=== PATIENT | female | born 1945 | race Caucasian/White ===

== ENCOUNTER → 2019-06-11 07:57 | Outpatient (CLI) | payer MEDICARE, SELFPAY ==
--- NOTE | ~2019-06-11 | XR_ITS ---
EXAMINATION: XR cervical spine min 6V DATE: 06/11/2019 10:09 INDICATION: Neck pain. TECHNIQUE: 7 views of cervical spine including flexion and extension views were obtained. COMPARISON: None. FINDINGS: There is 4 degrees levocurvature of cervicothoracic spine. The inferior cervical spine is h ypomobile with flexion and extension. Vertebral body heights are normal. There is mildly decreased di sc height at C5-C6 and C6-C7. 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 There is multilevel mild to moderate facet joint osteoarthritis. There is mild central canal stenosi s at C5-C6 and C6-C7. No prevertebral soft tissue swelling. IMPRESSION: 1. Mild cervical spondylosis. Reviewed, dictated and finalized at location A. OMS BROKERAGE AGENT
--- NOTE | ~2019-06-11 | MMUS_ITS ---
EXAMINATION: MM diagnostic maximus BI w stephenie, US breast RT limited HISTORY: Follow-up for probably benign bilateral breast calcifications and new pain in the upper oute r quadrant of the right breast. TECHNIQUE: Craniocaudal, mediolateral, and mediolateral oblique 3-D tomosynthesis images of the breas ts were performed and synthetic 2-D images were generated. Magnification views of the breasts are als o obtained. CAD analysis was submitted and interpreted. High resolution limited right breast ultrasou nd was performed. COMPARISON: 01/27/2019, 01/18/2019, 12/29/2017, 12/27/2016 BREAST PARENCHYMAL COMPOSITION: There are scattered areas of fibroglandular density. FINDINGS: MAMMOGRAPHIC FINDINGS: Right breast: Grouped punctate calcifications in the posterior third of the lower-outer quadrant of t he breast are stable and appear to be round in morphology. There is no associated mass or suspicious interval change. No mammographic correlate is identified for the reported pain in the upper outer heena drant of the right breast. Left breast: There are stable punctate grouped calcifications in the posterior third of the upper out er quadrant of the breast at the 1:00 location. There has been no suspicious interval change. ULTRASOUND: There is no evidence of focal abnormal solid or cystic lesion in the vicinity of the reported pain in the upper outer quadrant of the right breast. IMPRESSION: 1. Stable, probably benign bilateral breast calcifications and no mammographic or sonographic correla te for the patient's reported right breast pain. 2. Recommend 6 month follow-up bilateral diagnostic mammogram for the breast calcifications and recom mend clinical follow-up for the patient's reported right breast pain. BI-RADS category 3, probably benign findings. Reviewed, dictated and finalized at location A. FINISHER IMPRESSION: 1. Stable, probably benign bilateral breast calcifications and no mammographic or sonographic correlate for the patient's reported right breast pain. 2. Recommend 6 month follow-up bilateral diagnostic mammogram for the breast ca lcifications and recommend clinical follow-up for the patient's reported right breast pain. BI-RADS category 3, probably benign findings.
== END ==
PROVIDERS: PCP Internal Medicine; Visit Provider Internal Medicine
DX: N64.4 Mastodynia (principal); M47.892 Other spondylosis, cervical region
CPT/HCPCS: 72052; 76642; 77062; 77066; G0279

== ENCOUNTER 2019-12-02 15:08 | Outpatient (CLI) | payer MEDICARE, SELFPAY ==
--- NOTE | ~2019-12-02 | XR_ITS ---
XR thoracic spine 2V 12/02/2019 15:44 Indication: Mid back pain Procedure: 2 views thoracic spine Comparison: No prior studies for comparison. Findings: Mild thoracic dextroscoliosis. Vertebral body heights are maintained. Pedicles intact. No a cute fracture or traumatic malalignment. No paraspinal soft tissue abnormality. Surrounding osseous s tructures are unremarkable. Impression: 1: Mild thoracic dextroscoliosis. Reviewed, dictated and finalized at location A. Impression: 1: Mild thoracic dextroscoliosis.
--- NOTE | ~2019-12-02 | XR_ITS ---
XR lumbar spine 2-3V 12/02/2019 15:45 Indication: Low back pain Procedure: 3 views lumbar spine Comparison: 10/18/2011 Findings: There is disc narrowing at L3-4, L4-5 and L5-S1. There is mild multilevel facet hypertrophy . No fracture, subluxation or dislocation. No evidence for spondylolisthesis. There is atherosclerosi s of the aorta. Pedicles intact. Sacral foramen are symmetric. Impression: 1: Mild lumbar spondylosis. Reviewed, dictated and finalized at location A. Impression: 1: Mild lumbar spondylosis.
== END 2019-12-02 15:09 | disposition home or self-care (01) ==
PROVIDERS: PCP Internal Medicine; Visit Provider Internal Medicine
DX: M47.896 Other spondylosis, lumbar region (principal)
CPT/HCPCS: 72070; 72100

== ENCOUNTER 2019-12-08 10:06 | Outpatient (CLI) | payer MEDICARE, SELFPAY ==
--- NOTE | ~2019-12-08 | US_ITS ---
EXAMINATION: US carotid duplex BI DATE: 12/08/2019 10:51 INDICATION: Carotid bruit. TECHNIQUE: Grayscale, color Doppler, and pulsed Doppler images of the cervical carotid arteries were obtained. The degree of vessel stenosis is placed in one of the following categories: normal, <50%, 5 0-69%, >=70% but less than near-occlusion, near-occlusion, or total occlusion. Note that percent sten osis relative to normal distal artery lumen diameter is indirectly measured from velocity measurement s as described by Dilip, et al. Radiology 2003; 229:340-346. COMPARISON: None. FINDINGS: RIGHT: The right common carotid artery (CCA) peak systolic velocity (PSV) is 64 cm/s. The right internal car otid artery (ICA) PSV is 72 cm/s. The right ICA end-diastolic velocity (EDV) is 15 cm/s. The right IC A/CCA PSV ratio is 1.1. Grayscale and color Doppler images yield an estimate of <50% diameter reducti on from plaque in the ICA. The external carotid artery (ECA) PSV is 77 cm/s. There is antegrade flow in the right vertebral artery. LEFT: The left CCA PSV is 72 cm/s. The left ICA PSV is 70 cm/s. The left ICA EDV is 16 cm/s. The left ICA/C CA PSV ratio is 1.0. Grayscale and color Doppler images yield an estimate of <50% diameter reduction from plaque in the ICA. The ECA PSV is 100 cm/s. There is antegrade flow in the left vertebral artery . IMPRESSION: 1. <50% stenosis in the right internal carotid artery. 2. <50% stenosis in the left internal carotid artery. Reviewed, dictated and finalized at location A.
== END 2019-12-08 10:07 | disposition home or self-care (01) ==
LOC: ANHIMG 10:07
PROVIDERS: PCP Internal Medicine; Visit Provider Internal Medicine
DX: R01.1 Cardiac murmur, unspecified (principal); R09.89 Other specified symptoms and signs involving the circulatory and respiratory systems; I65.23 Occlusion and stenosis of bilateral carotid arteries
CPT/HCPCS: 93880

== ENCOUNTER → 2020-02-29 13:38 | Outpatient (CLI) | payer MEDICARE, SELFPAY | PROVIDERS: PCP Internal Medicine; Visit Provider Internal Medicine | DX: R92.8 Other abnormal and inconclusive findings on diagnostic imaging of breast (principal) | CPT/HCPCS: 77062; 77066; G0279 ==

== ENCOUNTER → 2020-03-01 13:25 | Outpatient (CLI) | payer MEDICARE, SELFPAY ==
--- NOTE | ~2020-03-01 | US_ITS ---
EXAMINATION: MM diagnostic maximus BI w stephenie, US breast RT limited HISTORY: Six-month follow-up for probably benign bilateral breast calcifications TECHNIQUE: Craniocaudal, mediolateral, and mediolateral oblique 3-D tomosynthesis images of the elizabeth ts were performed and synthetic 2-D images were generated. Magnification views are also obtained. CAD analysis was submitted and interpreted. Limited right breast ultrasound was performed. COMPARISON: 06/11/2019, 01/27/2019, 01/18/2019, 12/22/2016, 12/27/2016 BREAST PARENCHYMAL COMPOSITION: There are scattered areas of fibroglandular density. FINDINGS: MAMMOGRAPHIC FINDINGS: Left breast: There are stable punctate grouped calcifications in the posterior third of the upper outer quadrant of the breast at 1:00 location. No suspicious mass or architectura l distortion are identified. Right breast: Stable grouped punctate calcifications are present in the posterior third of the lower- outer breast which appear to be round in morphology. There is a possible 1.7 cm mass in the middle th ird of the slightly outer central breast 7 cm deep to the nipple on craniocaudal tomosynthesis image 26/56. ULTRASOUND FINDINGS: There is a 1.4 cm cyst with internal septation at the 9:00 location 2 cm from th e nipple in the right breast corresponding to the mammographic finding in question. No suspicious cys tic or solid mass is identified. IMPRESSION: 1. Bilateral, probably benign breast calcifications which have been stable for one year. 2. Given one year of interval stability, recommend 12 month followup bilateral diagnostic mammogram. BI-RADS category 3, probably benign findings. Reviewed, dictated and finalized at location A.
== END ==
PROVIDERS: PCP Internal Medicine; Visit Provider Internal Medicine
DX: R92.8 Other abnormal and inconclusive findings on diagnostic imaging of breast (principal)
CPT/HCPCS: 76642

== ENCOUNTER 2020-03-15 14:34 | Outpatient (CLI) | payer MEDICARE, SELFPAY ==
[2020-03-15 15:09] LABS: Basophils Absolute Auto 0.1 K/mm3 (0.0-0.1); Basophils Percent Auto 0.6 % (0.2-1.2); Eosinophils Absolute Auto 0.1 K/mm3 (0-0.3); Eosinophils Percent Auto 1.4 % (0-4.4); Hematocrit 44.6 % (37.0-47.0); Hemoglobin 14.7 g/dL (12.0-15.0); Immature Granulocyte Absolute 0.03 K/mm3 (0.00-0.031); Immature Granulocyte Percent A 0.3 % (0-0.5); Lymphocytes Absolute Auto 2.01 K/mm3 (0.9-3.2); Lymphocytes Percent Auto 20.5 % (18.3-44.2); Mean Corpuscular Hemoglobin 28.8 pg (26-34); Mean Corpuscular Volume 87.5 fl (80-100); Mean Platelet Volume 10.1 fl (7.4-10.4); Monocytes Absolute Auto 0.9 K/mm3 (0.1-0.6); Monocytes Percent Auto 8.8 % (2.6-8.5); Neutrophils Absolute Auto 6.7 K/mm3 (1.3-6.7); Neutrophils Percent Auto 68.4 % (45.5-73.1); Platelet Count Result 229 k/mm3 (150-375); Red Cell Distribution Width 14.1 % (11.5-14.5); White Blood Count 9.8 K/mm3 (4.5-10.0)
[2020-03-15 15:26] LABS: Alanine Aminotransferase 30 U/L (4-35); Albumin Level 4.4 g/dL (3.5-5.1); Alkaline Phosphatase 82 U/L (38-126); Anion Gap 7 mmol/L (8-16); Aspartate Amino Transferase 27 U/L (14-36); Bilirubin,Total 2.8 mg/dL (0.2-1.3); Blood Urea Nitrogen 17 mg/dL (7-17); Calcium 9.7 mg/dL (8.4-10.2); Carbon Dioxide 30 mmol/L (22-30); Chloride 102 mmol/L (98-107); Estimated Glomerular Filt Rate 40; Glucose 118 mg/dL (65-105); Potassium 4.1 mmol/L (3.4-5.0); Sodium 139 mmol/L (137-145)
[2020-03-15 15:55] LABS: Thyroid Stimulating Hormone < 0.015 uIU/mL (0.465-4.680)
[2020-03-15 16:20] LABS: Free T4 Free Thyroxine 1.73 ng/mL (0.78-2.19)
[2020-03-15 16:43] LABS: Hemoglobin A1C 6.7 % (<5.7)
[2020-03-20 10:55] LABS: Homocysteine 19.1 umol/L (<10.4)
== END 2020-03-15 14:35 | disposition home or self-care (01) ==
PROVIDERS: PCP Internal Medicine; Visit Provider Internal Medicine
DX: I10 Essential (primary) hypertension (principal); Z79.899 Other long term (current) drug therapy; E11.69 Type 2 diabetes mellitus with other specified complication; E78.2 Mixed hyperlipidemia; R79.9 Abnormal finding of blood chemistry, unspecified
CPT/HCPCS: 36415; 80048; 80076; 83036; 83090; 84439; 84443; 85025

== ENCOUNTER 2020-03-15 15:43 | Outpatient (CLI) | payer MEDICARE, SELFPAY ==
--- NOTE | ~2020-03-15 | US_ITS ---
EXAMINATION: US venous doppler [facility] DATE: 03/15/2020 16:16 INDICATION: Left lower limb edema. TECHNIQUE: Grayscale ultrasound images without and with compression and Doppler ultrasound images of the left lower extremity veins were obtained. COMPARISON: None. FINDINGS: The visualized portions of left common femoral vein, profunda (deep) femoral vein, femoral vein, popl iteal vein, peroneal veins, posterior tibial veins, and greater saphenous vein outflow are patent. IMPRESSION: 1. No deep venous thrombosis. Reviewed, dictated and finalized at location B. OR DATA WAREHOUSE ARCHITECT
== END 2020-03-15 15:44 | disposition home or self-care (01) ==
PROVIDERS: PCP Internal Medicine; Visit Provider Internal Medicine
DX: M79.89 Other specified soft tissue disorders (principal); R60.9 Edema, unspecified
CPT/HCPCS: 36415; 80048; 80076; 83036; 83090; 84439; 84443; 85025; 93971

== ENCOUNTER 2020-08-01 13:26 | Outpatient (CLI) | payer MEDICARE, SELFPAY ==
[2020-08-01 14:30] LABS: Hemoglobin A1C 7.1 % (<5.7)
[2020-08-01 14:33] LABS: Alanine Aminotransferase 25 U/L (4-35); Albumin Level 4.5 g/dL (3.5-5.1); Alkaline Phosphatase 90 U/L (38-126); Anion Gap 7 mmol/L (8-16); Aspartate Amino Transferase 23 U/L (14-36); Bilirubin,Total 1.7 mg/dL (0.2-1.3); Blood Urea Nitrogen 23 mg/dL (7-17); Calcium 10.2 mg/dL (8.4-10.2); Carbon Dioxide 30 mmol/L (22-30); Chloride 103 mmol/L (98-107); Cholesterol 182 mg/dL (0-200); Estimated Glomerular Filt Rate 37; Glucose 141 mg/dL (65-105); HDL Direct 74 mg/dL; Potassium 3.8 mmol/L (3.4-5.0); Sodium 140 mmol/L (137-145); Triglycerides 160 mg/dL (<150)
[2020-08-01 14:45] LABS: LDL Cholesterol Direct 67 mg/dL
[2020-08-01 15:04] LABS: Thyroid Stimulating Hormone < 0.015 uIU/mL (0.465-4.680)
[2020-08-01 15:08] LABS: Free T4 Free Thyroxine 1.67 ng/mL (0.78-2.19)
[2020-08-03 09:27] LABS: Homocysteine 13.8 umol/L (<10.4)
[2020-08-04 09:22] LABS: Vitamin D 1,25 (OH)2 Total 12 pg/mL (18-72); Vitamin D2 1,25 (OH)2 <8 pg/mL; Vitamin D3 1,25 (OH)2 12 pg/mL
== END 2020-08-01 13:27 | disposition home or self-care (01) ==
PROVIDERS: PCP Internal Medicine; Visit Provider Internal Medicine
DX: R79.89 Other specified abnormal findings of blood chemistry (principal); E78.2 Mixed hyperlipidemia; Z79.899 Other long term (current) drug therapy; E55.9 Vitamin D deficiency, unspecified; E11.69 Type 2 diabetes mellitus with other specified complication
CPT/HCPCS: 36415; 80053; 80061; 82652; 83036; 83090; 84439; 84443

== ENCOUNTER 2020-08-17 15:40 | Outpatient (CLI) | payer MEDICARE, SELFPAY ==
--- NOTE | ~2020-08-17 | XR_ITS ---
XR chest 2V DATE: 08/17/2020 16:06 INDICATION: Dyspnea. Shortness of breath. History of myocardial infarction and COPD. TECHNIQUE: PA and lateral views COMPARISON: 09/07/2018 PA and lateral chest FINDINGS: Normal heart size. Left coronary artery stent. No hilar or mediastinal enlargement. Mild bilateral apical capping. No pulmonary infiltrate or consolidation, pleural effusion or pulmonary vascular congestion or pneumo thorax. Diffuse osteopenia. Degenerative spurring of the thoracic and lumbar spine. Clips overlie the upper abdomen on lateral view, likely due to cholecystectomy. IMPRESSION: No active cardiopulmonary disease Reviewed, dictated and finalized at location A.
[2020-08-17 16:11] LABS: CRP < 0.5 mg/dL (<1.0)
[2020-08-17 16:44] LABS: Erythrocyte Sedimentation Rate 18 mm/hr (0-20)
== END 2020-08-17 15:41 | disposition home or self-care (01) ==
PROVIDERS: PCP Internal Medicine; Visit Provider Internal Medicine
DX: M79.10 Myalgia, unspecified site (principal); R06.00 Dyspnea, unspecified; Z95.5 Presence of coronary angioplasty implant and graft; M85.88 Other specified disorders of bone density and structure, other site
CPT/HCPCS: 36415; 71046; 85652; 86140

== ENCOUNTER 2020-09-01 08:53 | Outpatient (CLI) | payer MEDICARE, SELFPAY ==
--- NOTE | 2020-09-01 17:56 | WPDPFTINT ---
PFT Procedure Performed PFT Procedure Performed Spirometry with Pre/Post Bronchodilator Plethysmography (Lung Vol) Diffusing Cap (DLCO) Flow Vol Loop PFT Interpretation This is a pulmonary function test with pre and post-bronchodilator spirometry, plethysmography and diffusing capacity. The test was performed and results interpreted in accordance with the 2019 and 2005 ATS/ERS Task Force guidelines respectively using the Global Lung Function Initiative-2012 reference equations. Patient demonstrated good effort and cooperation. Reproducibility criteria were met. The quality of the pre bronchodilator spirometry maneuver was Grade A and post bronchodilator spirometry maneuver was Grade A. Findings: Spirometry: The contour the inspiratory and expiratory flow tracing are normal. The pre bronchodilator FVC is 2.32 L, 77% predicted. The pre bronchodilator FEV1 is 1.70 L, 74% predicted. The FEV1: FVC ratio 73%. The post bronchodilator FVC is 2.25 L, representing a 3% decrease. The post bronchodilator FEV1 is 1.71 L, representing 1% increase. Plethysmography: The total lung capacity is 6.09 L, 110% predicted. The functional residual capacity is 3.88 L, 121% predicted. The residual volume is 3.56 L, 145% predicted. Diffusion capacity: The absolute diffusion capacity is 15.8, 74% predicted. The diffusing capacity corrected for alveolar volume is 3.74, 92% predicted. Impression: The spirometry is normal without evidence of an obstructive abnormality. There is no significant improvement after inhaling a single dose of albuterol. There is an increased residual volume with a normal total lung capacity. This is an abnormal but nonspecific lung volume pattern. The diffusing capacity is normal. There are no prior studies for comparison
== END 2020-09-01 08:54 | disposition home or self-care (01) ==
PROVIDERS: PCP Internal Medicine; Visit Provider Internal Medicine
DX: R06.00 Dyspnea, unspecified (principal)
CPT/HCPCS: 94060; 94726; 94729

== ENCOUNTER 2020-09-12 11:21 | Observation (INO) | payer MEDICARE, SELFPAY ==
[2020-09-12] VITALS (9 sets, daily range): BP systolic 116–131; BP diastolic 58–94; PULSE 51–60; RESP 14–20; TEMP 36.1–36.8; O2SAT 97–100; BMI 34.2
--- NOTE | ~2020-09-12 | NM_ITS ---
EXAMINATION: NM cyrus stress w perfusion DATE: 09/13/2020 13:17 INDICATION: Chest pain. TECHNIQUE: Rest images were obtained following intravenous administration of 9 mCi Tc99m tetrofosmin (Myoview). The patient was infused intravenously with Lexiscan (regadenoson). Then, 28.32 mCi Tc99m t etrofosmin (Myoview) was administered intravenously, and stress images were obtained. Data was recons tructed into short axis and horizontal and vertical long axis SPECT images. Gated SPECT images were a lso obtained. COMPARISON: None. FINDINGS: There is no definite reversible or fixed perfusion abnormality to suggest ischemia or infar ction. There is no segmental wall motion abnormality. Left ventricular ejection fraction measures > 70%. IMPRESSION: 1. No definite ischemia or infarct. 2. Normal left ventricular ejection fraction measuring >70%. Reviewed, dictated and finalized at location B.
--- NOTE | ~2020-09-12 | XR_ITS ---
EXAMINATION: XR chest 2V DATE: 09/12/2020 12:34 INDICATION: Chest pain. TECHNIQUE: Frontal and lateral views of the chest were obtained. COMPARISON: Chest 2 views 08/17/2020 FINDINGS: There is mild scarring at the lung apices. There is mild atelectasis in left lower lung zon e. No pleural effusion or pneumothorax. The heart size is normal. There are surgical clips in the pel vis. IMPRESSION: 1. Mild atelectasis in left lower lung zone. 2. Stable mild scarring at the lung apices. Reviewed, dictated and finalized at location B.
--- NOTE | 2020-09-12 11:35 | ECG_ITS ---
Measurements Intervals [place] Rate: 54 P: 87 CT: 193 QRS: -15 QRSD: 148 T: 87 QT: 431 QTc: 412 Interpretive Statements SINUS BRADYCARDIA LEFT BUNDLE BRANCH BLOCK ABNORMAL ECG Electronically Signed On 09-12-2020 11:58:33 CDT by Alvin Morrow D.O.
[2020-09-12 11:57] LABS: Basophils Absolute Auto 0.1 K/mm3 (0.0-0.1); Basophils Percent Auto 0.3 % (0.2-1.2); Eosinophils Absolute Auto 0.2 K/mm3 (0-0.3); Eosinophils Percent Auto 1.2 % (0-4.4); Hemoglobin 14.2 g/dL (12.0-15.0); Immature Granulocyte Absolute 0.11 K/mm3 (0.00-0.031); Immature Granulocyte Percent A 0.7 % (0-0.5); Lymphocytes Absolute Auto 2.95 K/mm3 (0.9-3.2); Lymphocytes Percent Auto 19.1 % (18.3-44.2); Mean Corpuscular HGB Conc 32.3 g/dl (32-36); Mean Corpuscular Hemoglobin 27.8 pg (26-34); Mean Corpuscular Volume 86.1 fl (80-100); Mean Platelet Volume 9.9 fl (7.4-10.4); Monocytes Absolute Auto 1.1 K/mm3 (0.1-0.6); Monocytes Percent Auto 6.8 % (2.6-8.5); Neutrophils Absolute Auto 11.1 K/mm3 (1.3-6.7); Neutrophils Percent Auto 71.9 % (45.5-73.1); Platelet Count Result 200 k/mm3 (150-375); Red Blood Count 5.11 M/mm3 (4.2-5.4); Red Cell Distribution Width 15.4 % (11.5-14.5); White Blood Count 15.5 K/mm3 (4.5-10.0)
[2020-09-12 12:06] LABS: INR 0.8; Partial Thromboplastin Time 20.6 SECONDS (22.3-36.8); Prothrombin Time 11.7 Seconds (11.1-14.7)
[2020-09-12 12:08] LABS: Anion Gap 6 mmol/L (8-16); Blood Urea Nitrogen 31 mg/dL (7-17); Calcium 9.9 mg/dL (8.4-10.2); Carbon Dioxide 25 mmol/L (22-30); Chloride 105 mmol/L (98-107); Estimated CRCL calculation 44 ml/min; Estimated Glomerular Filt Rate 44; Glucose 199 mg/dL (65-105); Potassium 3.7 mmol/L (3.4-5.0); Sodium 136 mmol/L (137-145)
[2020-09-12 12:20] LABS: Troponin I < 0.012 ng/mL (0.000-0.034)
--- NOTE | 2020-09-12 13:08 | ED.GENADULT ---
HPI - General Adult General Chief complaint: Chest Pain Stated complaint: Irregularities in an ekg Time Seen by Provider: 09/12/20 12:59 Source: patient History of Present Illness HPI narrative: Patient is a 74 y/o female complaining of mid sternal chest pain that occurred 3 days ago. She describes her pain as burning and rates it as 9/10. There was no pain radiation. She states that she drank some water and it eventually went away after about 30 minutes. She has no chest pain at this time. There was no SOB, cough, nausea or vomiting. She states that she had MD over 10 years ago and had stent placed at that time. However, she has been doing well since then. She was seen in her PCP's office today and was sent here for abnormal EKG. Related Data Home Medications Medication Instructions Recorded Confirmed aspirin 81 mg tablet,delayed 81 mg PO DAILY 03/09/19 09/12/20 release empagliflozin 10 mg tablet 10 mg PO DAILY 03/09/19 09/12/20 lorazepam 1 mg tablet 1 mg PO TID PRN 03/09/19 09/12/20 ondansetron 4 mg disintegrating 4 mg PO Q8H 03/09/19 09/12/20 tablet ipratropium 0.5 mg-albuterol 3 mg 3 ml INHALATION QID PRN 03/29/19 09/12/20 (2.5 mg base)/3 mL nebulization soln cholecalciferol (vitamin D3) 25 25 mcg PO DAILY 11/04/19 09/12/20 mcg (1,000 unit) capsule calcium 500 mg tablet mg PO 08/17/20 09/12/20 omega-3 fatty acids 1,000 mg 1,000 mg PO BID 08/17/20 09/12/20 capsule Allergies Allergy/AdvReac Type Severity Reaction Status Date / Time Iodinated Contrast Media Allergy Mild Unknown Verified 09/12/20 10:58 codeine Allergy Unknown Unknown Verified 09/12/20 10:58 iodine Allergy Unknown Unknown Verified 09/12/20 10:58 morphine Allergy Unknown Unknown Verified 09/12/20 10:58 tramadol Allergy Unknown Unknown Verified 09/12/20 10:58 Review of Systems Constitutional: Constitutional: Denies chills, Denies fever(s), Denies headache(s) and Denies weakness Eyes: Eyes: Denies blurry vision ENT: Denies headache(s) and Denies neck pain Cardiovascular: Cardiovascular: Reports chest pain and Denies dyspnea Respiratory: Respiratory: Denies cough and Denies dyspnea Gastrointestinal: Gastrointestinal: Denies abdominal pain, Denies diarrhea, Denies nausea and Denies vomiting Genitourinary: Genitourinary: Denies hematuria and Denies dysuria Musculoskeletal: Musculoskeletal: Denies back pain and Denies neck pain Neurologic: Denies headache(s) and Denies weakness [facility] Past Medical History Medical History Abnormal EKG Abnormal finding of blood chemistry Abnormal mammogram Abnormal screening mammogram Anxiety with depression ASHD (arteriosclerotic heart disease) BMI 32.0-32.9,adult BMI 34.0-34.9,adult BMI 35.0-35.9,adult Bruit Cardiac enzymes elevated Cervicalgia Chronic pain CKD (chronic kidney disease) Dizziness DJD (degenerative joint disease) DM type 2 (diabetes mellitus, type 2) PERKINS (dyspnea on exertion) Elevated homocysteine Encounter for routine adult health examination without abnormal findings Familial tremor FHx: breast cancer Follow up Hearing loss Homans sign present Hx of colonic polyps Hyperlipidemia LBBB (left bundle branch block) Left leg swelling Mastodynia of right breast Medicare annual wellness visit, subsequent Mid back pain Myalgia On longterm drug therapy Orthostatic hypotension Peripheral edema Right flank pain Vitamin D deficiency (~03/09/19) Family History Family History Grandparent Diabetes mellitus Mother Family history of malignant neoplasm of ovary Father Cerebrovascular accident Patient's father is Other FHx: breast cancer Family history of arthritis Family history of cardiovascular disease Hypertension Malignant neoplasm of prostate Social History Social History Smoking status: Former smok
--- NOTE | 2020-09-12 13:15 | PC.NURSE ---
s/p went to PCP office this am for mid-sternal non-radiating CP since this weekend, had abn EKG and sent here for eval. I had heartburn before my first heart attack, 11 years ago . Pt is on high dose steroids for one month they think I have an inflammatory disease and is on a taper now. Pt currently denies pain, SB on monitor, non-labored respirations, 100% RA
[2020-09-12 13:40] LABS: D Dimer 0.27 ug/mL (<0.48)
[2020-09-12 16:12] LABS: Troponin I < 0.012 ng/mL (0.000-0.034)
--- NOTE | 2020-09-12 17:21 | ADMGEN ---
This patient, Allyson Tello, was admitted to IMU Room 214-01. Patient/family oriented to hospital policies and general routines including ID bracelet, bed and alarms, visiting hours, pain management, procedures, bathroom and other care routines, personal items, smoking policy, room service/diet, and visiting hours. Information on how to activate the Rapid Response Team has been discussed. Patient/Family are encouraged to report perceived risks to care and to ask questions if they do not understand what they are told or what they should do.
[2020-09-12 18:09] LABS: Troponin I < 0.012 ng/mL (0.000-0.034)
--- NOTE | 2020-09-12 19:10 | EST_ITS ---
Patient Info Name: Allyson Tello Age: 74 years : 1945 Gender: Female Ht: 67 in Wt: 219 lbs BSA: 2.20 m2 HR: 56 bpm Exam Date: 09/13/2020 11:43 AM Exam Location: [facility] Stress Patient Status: Inpatient Admit Date: 09/12/2020 Staff Ordering Physician: Bushra Landon NP Attending Provider: Maninder Padron MD Exercise Technologist: Rhett Stokes RDCS, RT Exercise Physician: Paulo Veloz MD Exam Type: CA stress cyrus w NM Study Info A regadenoson stress test was performed. Summary 1. No abnormal ST-T wave changes with lexiscan. 2. Please correlate with nuclear medicine images, reported separately. Protocol: Lexiscan Stress ECG Details Stage: REST Duration (min): 15 min : 49 sec HR (bpm): 52 SBP (mmHg): 121 DBP (mmHg): 48 Stage: REST Duration (min): 16 min : 29 sec HR (bpm): 49 SBP (mmHg): 121 DBP (mmHg): 48 Stage: STAGE 1 Duration (min): 1 min : 0 sec HR (bpm): 52 SBP (mmHg): 103 DBP (mmHg): 57 Stage: RECOVERY Duration (min): 1 min : 0 sec HR (bpm): 73 SBP (mmHg): 103 DBP (mmHg): 57 Stage: RECOVERY Duration (min): 2 min : 0 sec HR (bpm): 72 SBP (mmHg): 103 DBP (mmHg): 57 Stage: RECOVERY Duration (min): 3 min : 0 sec HR (bpm): 69 SBP (mmHg): 131 DBP (mmHg): 57 Stage: RECOVERY Duration (min): 3 min : 18 sec HR (bpm): 68 SBP (mmHg): 131 DBP (mmHg): 57 Rest HR: 49 bpm Peak HR: 75 bpm Rest Sys BP: 121 mmHg Peak Sys BP: 131 mmHg Max Pred HR: 145 bpm % Max Pred HR: 52 % Target HR: 123 bpm Max RPP: 9,825 bpm*mmHg Target HR Summary: Hemodynamic response to exercise was normal BP Response: Normal blood pressure response Termination Reason: Completed protocol Cardiac Symptoms: None Total Time: 1 min : 0 sec Rest Boles BP: 48 mmHg Peak Boles BP: 57 mmHg Total Dose: 0.4 mg Resting ECG Normal sinus rhythm. Left bundle branch block. Stress ECG Non-diagnostic ECG due to left bundle branch block. Arrhythmias None. Report Signatures
--- NOTE | 2020-09-12 19:15 | PM.IMHP ---
H&P: HPI History of Present Illness Date/Time: 09/12/20 19:15Lorin is a 74-year-old female patient has a past medical history of coronary artery disease. The patient stated that she had 2 cardiac stents several years ago. The patient has been having some chronic pain issues and recently was placed on prednisone. The patient stated that she has been more active than normal. Midsternal burning discomfort on and off for approximately 3 days. She said as burning and she was rating her pain INR 10. Did radiate down her arm. She drink some water and eventually went away after 30 minutes. She had no chest pain today. She does have any shortness of breath no nausea vomiting. She states that she does have acid reflux and she had a heart attack over 10 years ago. She said this pain is different than acid reflux and feels more like the pain she had when she had a heart attack. Her cardiac enzymes were negative x3. It was reported that the patient went to her primary care doctor's office and had an EKG. It was reported that the patient's EKG was left bundle branch. I saw the EKG read which was read as sinus bradycardia with left bundle branch block. From 08/15/2017 was read as sinus rhythm left bundle-branch block. This bundle-branch block is not new. Cardiology has been consulted. The patient does take a baby aspirin daily. Patient was given a full-dose aspirin in the emergency room. Patient is being admitted for observation on date of service of 09/12/2020. Chief Complaint: Chest pain Review of Systems Review of Systems: All systems reviewed & are unremarkable except as noted in HPI and below Constitutional: Constitutional: Reports as per HPI and Reports no additional constitutional complaints Eyes: Eyes: Reports as per HPI and Reports no additional eye complaints ENT: Reports system reviewed and no additional complaints, except as documented and Reports Normal hearing present Cardiovascular: Cardiovascular: Reports no additional cardiovascular complaints Respiratory: Respiratory: Reports no additional respiratory complaints and Reports no additional respiratory complaints Gastrointestinal: Gastrointestinal: Reports as per HPI and Reports no additional gastrointestinal complaints Musculoskeletal: Musculoskeletal: Reports no additional musculoskeletal complaints Integumentary/Breasts: Skin/Breast: Reports system reviewed and no additional complaints, except as docu and Reports as per HPI Neurologic: Reports system reviewed and no additional complaints, except as documented, Reports as per HPI and Reports Normal hearing present Psychiatric: Psychiatric: Reports no additional psychiatric complaints and Reports as per HPI Endocrine: Endocrine: Reports no additional endocrine complaints Hematologic/Lymphatic: Hematologic/Lymphatic: Reports no additional hematologic/lymphatic complaints Allergic/Immunologic: Allergic/Immunologic: Reports no additional allergic/immunologic complaints [facility] Past Medical History Medical History (Updated 09/12/20 @ 19:50 by Bushra Landon NP) Abnormal EKG Abnormal finding of blood chemistry Abnormal mammogram Abnormal screening mammogram Anxiety with depression ASHD (arteriosclerotic heart disease) BMI 32.0-32.9,adult BMI 34.0-34.9,adult BMI 35.0-35.9,adult Bruit Cardiac enzymes elevated Cervicalgia Chronic pain CKD (chronic kidney disease) Dizziness DJD (degenerative joint disease) DM type 2 (diabetes mellitus, type 2) PERKINS (dyspnea on exertion) Elevated homocysteine Encounter for routine adult health examination without abnormal findings Familial tremor FHx: breast cancer Follow up Hearing loss Homans sign present Hx of colonic polyps Hyperlipidemia Hypothyroidism LBBB (left bundle branch block) Left leg swelling Mastodynia of right breast Medicare annual wellness visit, subsequent Mid back pain Myalgia 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
[2020-09-12] MEDS: ROSUVASTATIN 10 MG TABLET 40 MG PO (20:56)
[2020-09-12] MEDS: METOPROLOL SUCCINATE EXT REL 50 MG TABCR PO (20:57)
[2020-09-12] MEDS: GABAPENTIN 100 MG CAPSULE PO (20:57)
[2020-09-12] MEDS: OMEGA 3 POLYUNSAT FATTY ACIDS 1 GM CAP PO (20:57)
[2020-09-12] MEDS: MONTELUKAST SODIUM 10 MG TABLET PO (20:57)
[2020-09-12] MEDS: PANTOPRAZOLE 40 MG TABLET PO (20:58)
[2020-09-12] MEDS: ENOXAPARIN 40 MG/0.4 ML SYRINGE SUB-Q (20:59)
[2020-09-13] VITALS (10 sets, daily range): BP systolic 115–134; BP diastolic 41–69; PULSE 49–68; RESP 16–18; TEMP 36.3–36.6; O2SAT 96–99
--- NOTE | 2020-09-13 | ECHO_ITS ---
Patient Info Name: Allyson Tello Age: 74 years : 1945 Gender: Female Ht: 67 in Wt: 218 lbs BSA: 2.20 m2 HR: 52 bpm BP: 127 / 41 mmHg Heart Rhythm: Sinus Rhythm Technical Quality: Good Exam Date: 09/13/2020 7:49 AM Exam Location: [facility] Patient Status: Inpatient Admit Date: 09/12/2020 Staff Ordering Physician: Bushra Landon NP Brine Tank Separator Operator: Rhett Stokes RDCS, RT Attending Provider: Maninder Padron MD Referring Physician: Dipesh TEIXEIRA; Exam Type: CA echo doppler color flow Study Info Indications R07.89 - Other chest pain Complete two-dimensional, color flow and Doppler transthoracic echocardiogram is performed. Strain analysis performed. Summary 1. Complete two-dimensional, color flow and Doppler transthoracic echocardiogram is performed. 2. Strain analysis performed. 3. Left ventricular chamber dimension is normal. 4. Left ventricular systolic function is normal, estimated at 60-65%. 5. There is mildly increased left ventricular wall thickness. 6. Left ventricular septal wall motion is abnormal with septal motion related to bundle branch block. 7. The left ventricular diastolic function is grade I diastolic dysfunction. 8. Global longitudinal strain is abnormal at -15 %. 9. Left atrial chamber dimension is mildly enlarged. 10. There is mild aortic valve regurgitation. 11. There is mild mitral valve regurgitation. 12. The mitral valve has thickened leaflets. 13. There is mild tricuspid valve regurgitation. Left Ventricle Left ventricular chamber dimension is normal. Left ventricular systolic function is normal, estimated at 60-65%. There is mildly increased left ventricular wall thickness. Left ventricular septal wall motion is abnormal with septal motion related to bundle branch block. The left ventricular diastolic function is grade I diastolic dysfunction. Global longitudinal strain is abnormal at -15 %. Right Ventricle Right ventricular chamber dimension is normal. Right ventricular systolic function is normal. Left Atria Left atrial chamber dimension is mildly enlarged. Right Atria Right atrial chamber dimension is normal. Atrial Septum Intact interatrial septum visualized by color flow imaging. Aortic Valve The aortic valve is trileaflet. There is mild aortic valve sclerosis. There is no aortic valve stenosis. There is mild aortic valve regurgitation. Pulmonic Valve The pulmonic valve is normal. There is no pulmonic valve stenosis. There is trace pulmonic regurgitation. No pulmonic valve vegetation visualized. Mitral Valve The mitral valve has thickened leaflets. There is no mitral valve stenosis. There is mild mitral valve regurgitation. Tricuspid Valve The tricuspid valve leaflets are normal. There is no significant tricuspid valve stenosis. There is mild tricuspid valve regurgitation. No pulmonary hypertension, estimated pulmonary arterial systolic pressure is 32 mmHg. Pericardium/Pleural The pericardium appears normal. There is trivial pericardial effusion. Inferior Vena Cava Normal inferior vena cava with >50% collapse upon inspiration consistent with normal right atrial pressure, 5 mmHg. Aorta The aortic root size at the sinus of Valsalva is normal. The prox ascending aorta size is normal. Left Ventricular Outflow Tract Name Value Normal ---
[2020-09-13 05:06] LABS: Basophils Absolute Auto 0.1 K/mm3 (0.0-0.1); Basophils Percent Auto 0.6 % (0.2-1.2); Eosinophils Absolute Auto 0.3 K/mm3 (0-0.3); Eosinophils Percent Auto 3.3 % (0-4.4); Hematocrit 43.4 % (37.0-47.0); Hemoglobin 14.1 g/dL (12.0-15.0); Immature Granulocyte Absolute 0.08 K/mm3 (0.00-0.031); Immature Granulocyte Percent A 0.8 % (0-0.5); Lymphocytes Absolute Auto 2.81 K/mm3 (0.9-3.2); Lymphocytes Percent Auto 28.7 % (18.3-44.2); Mean Corpuscular HGB Conc 32.5 g/dl (32-36); Mean Corpuscular Hemoglobin 27.9 pg (26-34); Mean Corpuscular Volume 85.9 fl (80-100); Mean Platelet Volume 9.4 fl (7.4-10.4); Monocytes Absolute Auto 0.7 K/mm3 (0.1-0.6); Monocytes Percent Auto 7.5 % (2.6-8.5); Neutrophils Absolute Auto 5.8 K/mm3 (1.3-6.7); Neutrophils Percent Auto 59.1 % (45.5-73.1); Platelet Count Result 156 k/mm3 (150-375); Red Blood Count 5.05 M/mm3 (4.2-5.4); Red Cell Distribution Width 15.6 % (11.5-14.5); White Blood Count 9.8 K/mm3 (4.5-10.0)
[2020-09-13 05:20] LABS: Alanine Aminotransferase 25 U/L (4-35); Albumin Level 3.5 g/dL (3.5-5.1); Alkaline Phosphatase 85 U/L (38-126); Anion Gap 2 mmol/L (8-16); Aspartate Amino Transferase 20 U/L (14-36); Bilirubin,Total 1.8 mg/dL (0.2-1.3); Blood Urea Nitrogen 26 mg/dL (7-17); Calcium 9.5 mg/dL (8.4-10.2); Carbon Dioxide 25 mmol/L (22-30); Chloride 111 mmol/L (98-107); Estimated CRCL calculation 43 ml/min; Estimated Glomerular Filt Rate 44; Glucose 112 mg/dL (65-105); Lipase 54 U/L (23-300); Magnesium 1.9 mg/dL (1.6-2.3); Potassium 3.9 mmol/L (3.4-5.0); Sodium 138 mmol/L (137-145)
[2020-09-13 05:24] LABS: Lactic Acid Reflex 0.9 mmol/L (0.7-2.1)
[2020-09-13] MEDS: LEVOTHYROXINE SODIUM 125 MCG TABLET PO (06:15)
[2020-09-13] MEDS: ONDANSETRON HCL ODT 4 MG TABLET PO (06:15)
[2020-09-13 06:29] LABS: Thyroid Stimulating Hormone Reflex 0.174 uIU/mL (0.465-4.68)
[2020-09-13] MEDS: ACETAMINOPHEN 325 MG TABLET 650 MG PO ×2 (06:57→13:00)
[2020-09-13 07:32] LABS: Glucose Point of Care 208 (65-105)
[2020-09-13 08:20] LABS: Free T4 Free Thyroxine Reflex 1.66 ng/dL (0.78-2.19)
[2020-09-13 09:14] LABS: Total Triiodothyronine (T3) 0.74 NG/ML (0.97-1.69)
--- NOTE | 2020-09-13 10:19 | PM.CNCAR ---
Assessment and Plan Assessment and plan (1) LBBB (left bundle branch block): Code(s): I44.7 - Left bundle-branch block, unspecified Status: Acute Assessment and Plan: Known since 2018 (2) Burning chest pain: Code(s): R07.89 - Other chest pain Status: Acute Assessment and Plan: Concerning for her anginal equivalent. She states that it feels similar to the symptoms she had prior to her myocardial infarction and at the time of her PR. (3) CKD (chronic kidney disease): Qualifiers: Chronic kidney disease stage: stage 1 Qualified Code(s): N18.1 - Chronic kidney disease, stage 1 Code(s): N18.9 - Chronic kidney disease, unspecified Status: Acute Assessment and Plan: Stable (4) CAD (coronary artery disease): Code(s): I25.10 - Atherosclerotic heart disease of [place] coronary artery without angina pectoris Status: Acute Assessment and Plan: Previous 2 stents. One to the LAD and 1 to the diagonal branch. No recent stress test. Continue aspirin, metoprolol, statin, ARB. Prescription for p.r.n. nitroglycerin will be provided. Offered ischemic workup including either a Lexiscan stress test versus a cardiac catheterization. She was is pursue a Lexiscan stress test 1st. 2D echocardiogram with Dopplers also ordered. Further recommendation depending on the results of these tests. (5) Hypertension associated with diabetes: Code(s): E11.59 - Type 2 diabetes mellitus with other circulatory complications; I15.2 - Hypertension secondary to endocrine disorders Status: Acute Assessment and Plan: At goal (6) Hyperlipidemia associated with type 2 diabetes mellitus: Code(s): E11.69 - Type 2 diabetes mellitus with other specified complication; E78.5 - Hyperlipidemia, unspecified Status: Acute Assessment and Plan: On statin History of Present Illness History of Present Illness Consult date/time: 09/13/20 10:19 Requesting physician: Vanessa Sweeney MD Consult reason: chest pain Reason For Visit: Chest pain Narrative: Date of service 09/13/2020 History: Patient is a 74-year-old female who has a history of myocardial infarction dating back to 2009. She had a stent to the diagonal branch as well as the LAD. She follows with Dr. Mackey as an outpatient. She has not had a stress test in several years she states. She has had 2 episodes of burning in her chest. Both started whenever she was lying down. First episode occurred about 5 days ago which lasted about 20-30 minutes. There is no associated nausea, diaphoresis or shortness of breath. She said happened drank some water her symptoms gradually went away. She had another episode 3 days ago which was similar to the 1st but not as severe. Her symptoms are reminiscent of her symptoms that she had prior to and at the time of her myocardial infarction. She does not normally have ?heartburn?. She came to the hospital after being seen by Dr. Powell. EKG in his office showed left bundle-branch block. This is thought to be new but in fact she does have a known history of left bundle branch block at least dating back to 2018. she has ruled out for myocardial infarction at this point. She currently is pain free and otherwise has denied any exertional chest discomfort, unusual shortness of breath. She has some dizziness upon standing. No palpitations, edema or syncope Review of Systems Review of Systems: All systems reviewed & are unremarkable except as noted in HPI and below Constitutional: Constitutional: Denies weakness Eyes: Eyes: Denies blurry vision ENT: Reports Normal hearing present Cardiovascular: Cardiovascular: Reports chest pain Respiratory: Respiratory: Reports dyspnea Gastrointestinal: Gastrointestinal: Denies abdominal pain and Reports heartburn Genitourinary: Genitourinary: Denies hematuria Musculoskeletal: Musculoskeletal: Denies back pain and Main
[2020-09-13] MEDS: MECLIZINE HCL 12.5 MG TABLET PO (13:02)
[2020-09-13] MEDS: predniSONE 20 MG TABLET PO (14:08)
[2020-09-13] MEDS: CHOLECALCIFEROL 1,000 UNITS TABLET 3000 UNITS PO (14:09)
[2020-09-13] MEDS: ASPIRIN 81 MG ENTERIC TABLET PO (14:10)
[2020-09-13] MEDS: hydroCHLOROthiazide 12.5 MG CAPSULE PO (14:10)
[2020-09-13] MEDS: CALCIUM CARBONATE (OSCAL) 500 MG TABLET PO (14:11)
[2020-09-13] MEDS: PANTOPRAZOLE 40 MG TABLET PO (14:11)
[2020-09-13] MEDS: OMEGA 3 POLYUNSAT FATTY ACIDS 1 GM CAP PO (14:12)
[2020-09-13] MEDS: ESCITALOPRAM OXALATE 10 MG TABLET PO (14:13)
[2020-09-13] MEDS: GABAPENTIN 100 MG CAPSULE PO (14:13)
[2020-09-13] MEDS: buPROPion HCL XL (24 HR) 150 MG TABCR 300 MG PO (14:14)
[2020-09-13] MEDS: LOSARTAN POTASSIUM 50 MG TABLET PO (14:14)
--- NOTE | 2020-09-13 16:24 | PM.DS ---
DS: Admitting Diagnosis Admitting Diagnosis Admitting Diagnosis: Chest pain DS: Discharge Diagnosis Discharge Diagnosis (1) Chest pain: Qualifiers: Chest pain type: unspecified Qualified Code(s): R07.9 - Chest pain, unspecified Code(s): R07.9 - Chest pain, unspecified Status: Acute (2) LBBB (left bundle branch block): Code(s): I44.7 - Left bundle-branch block, unspecified Status: Acute (3) CKD (chronic kidney disease): Qualifiers: Chronic kidney disease stage: stage 1 Qualified Code(s): N18.1 - Chronic kidney disease, stage 1 Code(s): N18.9 - Chronic kidney disease, unspecified Status: Acute (4) Hypothyroidism: Code(s): E03.9 - Hypothyroidism, unspecified Status: Chronic (5) Anxiety with depression: Code(s): F41.8 - Other specified anxiety disorders Status: Acute (6) Hyperlipidemia: Qualifiers: Hyperlipidemia type: mixed hyperlipidemia Qualified Code(s): E78.2 - Mixed hyperlipidemia Code(s): E78.5 - Hyperlipidemia, unspecified Status: Acute (7) DM type 2 (diabetes mellitus, type 2): Qualifiers: Diabetes mellitus complication status: with other specified complication Diabetes mellitus roasterman insulin use: without fdc use Qualified Code(s): E11.69 - Type 2 diabetes mellitus with other specified complication Code(s): E11.9 - Type 2 diabetes mellitus without complications Status: Chronic DS: Summary Hospital Course Reason for hospitalization: 74yo female with hx of DM and CAD here for complaints of chest pain. Please see H&P for details. Hospital Course: 74-year-old female with history of diabetes and CAD who presents with complaints of burning chest pain that occurred 3 days prior to admission. Pain occurred at rest. Pain was substernal without radiation. Occurred when she was laying down. Pain was similar to pain she had 10 years ago when she had her MT. She was seen by her primary care provider and was sent to the ED for evaluation. In the ED, patient was hemodynam[place] [id number] otherwise CBC was unremarkable. Repeat white count normalized. D-dimer was normal. BUN 31 and CR 1.2 which is at her baseline. Troponin negative x3. EKG showing Left BBB which is chronic. CXR showed no acute findings. She was admitted to IMU. Echo showing EF 60-65% Grade I diastolic dysfunction. Lexiscan stress test showed no abnormal ST-T wave changes with lexiscan and no definite ischemia or infarct; LVEF measuring >70%. Patient did well. No recurrent chest pain. She was able to be discharged home 09/13/2020. Status at Discharge Cognitive/behavioral status at discharge: Stable Time Spent with Patient Time attestation: Total time spent providing and/or coordinating discharge services: 38 minutes Time spent: Greater than 30 minutes Exam Narrative: Exam Narrative: AF 97.9 115/62 57 18 99% ra Gen - NARD Chest - CTA bilaterally, nml RR CV - RRR S1/S2 Abd - Soft, NT/ND, Positive BS Ext - No pedal edema Psych - Nml mood and affect Skin - Warm and dry DS: Data Data Completed and Pending Labs on day of discharge: Labs from last 24 hours 09/13/20 09/13/20 09/13/20 04:57 04:57 04:57 WBC RBC Hgb Hct MCV MCH MCHC RDW Plt Count MPV Immature Gran % (Auto) Neut % (Auto) Lymph % (Auto) [place] % (Auto) Eos % (Auto) Baso % (Auto) Lymph # (Auto) [place] # (Auto) Eos # (Auto) Baso # (Auto) Abs Immat Gran (auto) Absolute Neuts (auto) Absolute Nucleated RBC Nucleated RBC % Sodium Potassium Chloride Carbon Dioxide Anion Gap BUN Creatinine Estim Creat Clear Calc Estimated GFR Glucose POC Capillary Glucose Hemoglobin A1c Lactic Acid Calcium Magnesium Total Bilirubin AST ALT Alkaline Phosphatase Trop
[2020-09-13 17:00] LABS: Glucose Point of Care 183 (65-105)
== END 2020-09-13 17:07 | disposition home or self-care (01) ==
LOC: ANHED 13:29 → ANHIMU 15:51
PROVIDERS: Emergency Medicine; Nurse Practitioner; Admitting Provider Internal Medicine; Emergency Provider Emergency Medicine; PCP Internal Medicine; Visit Provider Internal Medicine
DX: R07.9 Chest pain, unspecified (principal); I25.10 Atherosclerotic heart disease of native coronary artery without angina pectoris; I12.9 Hypertensive chronic kidney disease with stage 1 through stage 4 chronic kidney disease, or unspecified chronic kidney disease; I25.2 Old myocardial infarction; K21.9 Gastro-esophageal reflux disease without esophagitis; I44.7 Left bundle-branch block, unspecified; E11.22 Type 2 diabetes mellitus with diabetic chronic kidney disease; E78.2 Mixed hyperlipidemia; E03.9 Hypothyroidism, unspecified; F41.8 Other specified anxiety disorders; N18.1 Chronic kidney disease, stage 1; Z95.5 Presence of coronary angioplasty implant and graft; Z87.891 Personal history of nicotine dependence; Z79.84 Long term (current) use of oral hypoglycemic drugs
CPT/HCPCS: 36415; 71046; 78452; 80048; 80053; 82948; 83036; 83605; 83690; 83735; 84439; 84443; 84480; 84484; 85025; 85380; 85610; 85730; 93005; 93017; 93306; 96372; 99285; A9270; A9502; G0378; J1650; J7512

== ENCOUNTER 2020-09-25 11:48 | Outpatient (CLI) | payer MEDICARE, SELFPAY ==
[2020-09-25 12:25] LABS: Basophils Absolute Auto 0.1 K/mm3 (0.0-0.1); Basophils Percent Auto 0.5 % (0.2-1.2); Eosinophils Absolute Auto 0.1 K/mm3 (0-0.3); Eosinophils Percent Auto 0.6 % (0-4.4); Hematocrit 44.8 % (37.0-47.0); Hemoglobin 14.6 g/dL (12.0-15.0); Immature Granulocyte Absolute 0.18 K/mm3 (0.00-0.031); Immature Granulocyte Percent A 1.2 % (0-0.5); Lymphocytes Absolute Auto 3.42 K/mm3 (0.9-3.2); Lymphocytes Percent Auto 22.5 % (18.3-44.2); Mean Corpuscular HGB Conc 32.6 g/dl (32-36); Mean Corpuscular Hemoglobin 28.3 pg (26-34); Mean Platelet Volume 9.6 fl (7.4-10.4); Monocytes Percent Auto 6.8 % (2.6-8.5); Neutrophils Absolute Auto 10.4 K/mm3 (1.3-6.7); Neutrophils Percent Auto 68.4 % (45.5-73.1); Platelet Count Result 256 k/mm3 (150-375); Red Blood Count 5.15 M/mm3 (4.2-5.4); Red Cell Distribution Width 15.9 % (11.5-14.5); White Blood Count 15.2 K/mm3 (4.5-10.0)
[2020-09-25 12:44] LABS: Anion Gap 6 mmol/L (8-16); Blood Urea Nitrogen 25 mg/dL (7-17); CRP < 0.5 mg/dL (<1.0); Calcium 9.8 mg/dL (8.4-10.2); Carbon Dioxide 26 mmol/L (22-30); Chloride 104 mmol/L (98-107); Estimated Glomerular Filt Rate 40; Glucose 186 mg/dL (65-105); Potassium 3.9 mmol/L (3.4-5.0); Sodium 136 mmol/L (137-145)
[2020-09-25 12:47] LABS: Erythrocyte Sedimentation Rate 11 mm/hr (0-20)
== END 2020-09-25 11:49 | disposition home or self-care (01) ==
LOC: ANHLAB 11:58
PROVIDERS: PCP Internal Medicine; Visit Provider Internal Medicine
DX: Z79.899 Other long term (current) drug therapy (principal); M79.10 Myalgia, unspecified site
CPT/HCPCS: 36415; 80048; 85025; 85652; 86140

== ENCOUNTER 2020-10-25 08:13 | Observation (INO) | payer MEDICARE, SELFPAY ==
[2020-10-25] VITALS (33 sets, daily range): BP systolic 115–180; BP diastolic 52–86; PULSE 62–93; RESP 15–29; TEMP 36.7–37.8; O2SAT 86–99; BMI 34.0
--- NOTE | ~2020-10-25 | CT_ITS ---
EXAMINATION: CT abdomen pelvis wo con DATE: 10/25/2020 10:21 INDICATION: Abdomen pain. Diverticulitis. Nausea and vomiting for 5 days. TECHNIQUE: Computed tomography (CT) of the abdomen and pelvis was performed without intravenous contr ast. The dose-length product was 1222.29 mGy-cm. Automated exposure control and iterative reconstruct ion technique were employed. COMPARISON: CT dated 03/29/2019. FINDINGS: Lung bases are unremarkable. Heart size normal. No significant pleural or pericardial effus ion. Small hiatal hernia. The liver, spleen, pancreas, adrenal glands and kidneys are unremarkable. No significant vascular abn ormality. No lymphadenopathy. There is colonic diverticulosis without evidence for diverticulitis. No rmal appendix. No free air or free fluid. Small fat-containing umbilical hernia. Uterus is surgically absent. There is a urachal remnant of the bladder. There is a small amount of gas in the urachal rem nant. Consider cystitis in the appropriate clinical setting. Mild lumbar spondylosis. No free air or free fluid. IMPRESSION: 1. Punctate gas collection in the bladder which may relate to recent instrumentation, although cystit is should be considered in the appropriate clinical setting. Reviewed, dictated and finalized at location B. IMPRESSION: 1. Punctate gas collection in the bladder which may relate to recent instrument ation, although cystitis should be considered in the appropriate clinical setti ng.
--- NOTE | ~2020-10-25 | XR_ITS ---
XR chest 1V portable 10/25/2020 10:43 Indication: Fever Procedure: AP portable chest Comparison: Comparison to multiple prior studies sequentially, with oldest reviewed study dated 12/2017. Findings: There is chronic biapical pleural thickening. Heart size upper normal for technique. No foc al air space disease, pulmonary edema, pleural effusion or suspected pneumothorax. There are degenera tive changes of the shoulders. Impression: 1: No acute cardiopulmonary disease. Reviewed, dictated and finalized at location B. Impression: 1: No acute cardiopulmonary disease.
[2020-10-25 08:38] LABS: Basophils Absolute Auto 0.1 K/mm3 (0.0-0.1); Basophils Percent Auto 0.5 % (0.2-1.2); Eosinophils Absolute Auto 0.1 K/mm3 (0-0.3); Eosinophils Percent Auto 0.6 % (0-4.4); Hematocrit 44.5 % (37.0-47.0); Hemoglobin 14.2 g/dL (12.0-15.0); Immature Granulocyte Absolute 0.19 K/mm3 (0.00-0.031); Lymphocytes Absolute Auto 1.39 K/mm3 (0.9-3.2); Lymphocytes Percent Auto 7.2 % (18.3-44.2); Mean Corpuscular HGB Conc 31.9 g/dl (32-36); Mean Corpuscular Hemoglobin 28.5 pg (26-34); Mean Corpuscular Volume 89.2 fl (80-100); Monocytes Absolute Auto 0.9 K/mm3 (0.1-0.6); Monocytes Percent Auto 4.8 % (2.6-8.5); Neutrophils Absolute Auto 16.5 K/mm3 (1.3-6.7); Neutrophils Percent Auto 85.9 % (45.5-73.1); Platelet Count Result 242 k/mm3 (150-375); Red Blood Count 4.99 M/mm3 (4.2-5.4); Red Cell Distribution Width 15.9 % (11.5-14.5); White Blood Count 19.2 K/mm3 (4.5-10.0)
[2020-10-25 08:48] LABS: Alanine Aminotransferase 63 U/L (4-35); Alkaline Phosphatase 113 U/L (38-126); Anion Gap 5 mmol/L (8-16); Aspartate Amino Transferase 88 U/L (14-36); Bilirubin,Total 2.3 mg/dL (0.2-1.3); Blood Urea Nitrogen 19 mg/dL (7-17); Calcium 10.3 mg/dL (8.4-10.2); Carbon Dioxide 31 mmol/L (22-30); Chloride 102 mmol/L (98-107); Estimated CRCL calculation 47 ml/min; Estimated Glomerular Filt Rate 48; Glucose 181 mg/dL (65-105); Lipase 72 U/L (23-300); Potassium 3.8 mmol/L (3.4-5.0); Sodium 138 mmol/L (137-145)
[2020-10-25] MEDS: SODIUM CHLORIDE 0.9% IV 1,000 ML 999 ML IV CONT (09:46)
[2020-10-25] MEDS: FAMOTIDINE 20 MG/2 ML VIAL IV PUSH ×2 (09:46→21:15)
[2020-10-25] MEDS: PROCHLORPERAZINE EDISYLATE 10 MG/2 ML VIAL IV PUSH (09:46)
[2020-10-25 10:01] LABS: Alveolar/Arterial O2 Gradient 45.1 mmHg; Carboxyhemoglobin 1.5 % THb (0-2.0); Fractional Inspired Oxygen 21 %; HCO3 ABG 27.7 mEq/l (22.0-26.0); Oxygen Content ABG 17.2 %vol (16.0-22.0); Oxygen Saturation ABG 88.6 % (95.0-100.0); Oxyhemoglobin 87.3 % THb (90.0-100.0); PCO2 ABG 42.7 mmHg (35.0-45.0); PO2 ABG 53.5 mmHg (80.0-100.0); PO2 FiO2 Ratio Arterial Blood 2.55 %; Reduced Hemoglobin 11.2 %THb (0-5.0)
[2020-10-25 10:02] LABS: Modified Allen's Test Pass; Site Drawn RIGHT RADIAL
[2020-10-25 10:03] LABS: Device ROOM AIR
[2020-10-25 10:05] LABS: Lactic Acid Reflex 1.5 mmol/L (0.7-2.1)
--- NOTE | 2020-10-25 10:06 | ECG_ITS ---
Measurements Intervals [place] Rate: 69 P: 104 MO: 184 QRS: 3 QRSD: 160 T: 73 QT: 440 QTc: 473 Interpretive Statements SINUS RHYTHM LEFT BUNDLE BRANCH BLOCK BASELINE ARTIFACT- I, II, III, AVR, AVL, AVF, V1-V6 ABNORMAL ECG Electronically Signed On 10-25-2020 11:40:59 CDT by Alvin Morrow D.O.
[2020-10-25 10:26] LABS: Add Urine Microscopic? YES; Appearance Urine Clear (Clear); Bilirubin Urine Negative (Negative); Blood Urine Negative (Negative); Budding Yeast Urine Present /hpf; Color Urine Yellow (Yellow); Glucose Urine UA 3+ mg/dL (Negative); Ketones Urine Negative (Negative); Leukocyte Esterase Ur Negative LEU/UL (Negative); Nitrate Urine Negative (Negative); Protein Urine Negative (Negative); RBC Urine 0-2 /hpf (0-2); Specific Grav Ur 1.017 (1.001-1.035); Squamous Epithelial Cell Urine Rare /hpf (Few); Urobilinogen Urine Negative mg/dL (<2.0); WBC Urine 0-3 /hpf
[2020-10-25 11:05] LABS: NT Pro B Type Natriuretic Pept 1480 pg/mL (5-100)
[2020-10-25] MEDS: LACTATED RINGERS 1,000 ML 999 ML IV CONT (11:45)
[2020-10-25 11:50] LABS: CRP 0.8 mg/dL (<1.0)
[2020-10-25 12:33] LABS: INR 0.9; Prothrombin Time 12.6 Seconds (11.1-14.7)
[2020-10-25 12:34] LABS: Partial Thromboplastin Time 21.8 SECONDS (22.3-36.8)
[2020-10-25 12:36] LABS: D Dimer 0.48 ug/mL (<0.48)
--- NOTE | 2020-10-25 13:00 | ED.GENADULT ---
HPI - General Adult General Chief complaint: Nausea/Vomiting/Diarrhea Stated complaint: vomiting Time Seen by Provider: 10/25/20 09:01 Source: patient, family, RN notes reviewed and old records reviewed Mode of arrival: EMS Limitations: no limitations History of Present Illness HPI narrative: Patient is a 74-year-old female who presents with several days duration of not feeling well patient notes achiness with abdominal discomfort and some urinary frequency patient notes that they were camping over the weekend but not in any heat exposure she denies any sick contacts patient denies any URI symptoms rectal bleeding melena or vomiting. Patient does note nausea. Patient has had similar occurrences in the past. Patient notes history of polymyalgia rheumatica. Patient states that she is currently on steroids which she has been on prescribed Dr. han her primary care doctor. On arrival patient is ill-appearing and appears uncomfortable Related Data Home Medications Medication Instructions Recorded Confirmed aspirin 81 mg tablet,delayed 81 mg PO DAILY 03/09/19 10/04/20 release empagliflozin 10 mg tablet 10 mg PO DAILY 03/09/19 10/04/20 ondansetron 4 mg disintegrating 4 mg PO Q8H 03/09/19 10/04/20 tablet cholecalciferol (vitamin D3) 25 75 mcg PO DAILY 11/04/19 10/04/20 mcg (1,000 unit) capsule calcium 500 mg tablet 500 mg PO DAILY 08/17/20 10/04/20 omega-3 fatty acids 1,000 mg 1,000 mg PO Q12H 08/17/20 10/04/20 capsule Tradjenta 5 mg PO QAM 09/12/20 10/04/20 gabapentin [Neurontin] 100 mg PO TID 09/12/20 10/04/20 hydrocodone-acetaminophen 1 tablet PO DAILY PRN 09/12/20 10/04/20 levothyroxine 125 mcg PO DAILY 09/12/20 10/04/20 losartan-hydrochlorothiazide 1 tablet PO DAILY 09/12/20 10/04/20 metoprolol succinate 50 mg PO HS 09/12/20 10/04/20 montelukast [Singulair] 10 mg PO HS 09/12/20 10/04/20 pantoprazole 40 mg PO HS 09/12/20 10/04/20 rosuvastatin 40 mg PO HS 09/12/20 10/04/20 levothyroxine 137 mcg PO DAILY 10/25/20 Allergies Allergy/AdvReac Type Severity Reaction Status Date / Time Iodinated Contrast Media Allergy Mild Unknown Verified 09/27/20 14:47 codeine Allergy Unknown Unknown Verified 09/27/20 14:47 iodine Allergy Unknown Unknown Verified 09/27/20 14:47 morphine Allergy Unknown Unknown Verified 09/27/20 14:47 tramadol Allergy Unknown Unknown Verified 09/27/20 14:47 Review of Systems Review of Systems: All systems reviewed & are unremarkable except as noted in HPI and below PMFSH Past Medical History Medical History Abnormal EKG Abnormal finding of blood chemistry Abnormal mammogram Abnormal screening mammogram Anxiety with depression ASHD (arteriosclerotic heart disease) BMI 32.0-32.9,adult BMI 34.0-34.9,adult BMI 35.0-35.9,adult Bruit Cardiac enzymes elevated Cervicalgia Chronic pain CKD (chronic kidney disease) Dizziness DJD (degenerative joint disease) DM type 2 (diabetes mellitus, type 2) PERKINS (dyspnea on exertion) Elevated homocysteine Encounter for routine adult health examination without abnormal findings Familial tremor FHx: breast cancer Follow up Hearing loss Hoarseness of voice Homans sign present Hx of colonic polyps Hyperlipidemia Hypothyroidism LBBB (left bundle branch block) Left leg swelling Mastodynia of right breast Medicare annual wellness visit, subsequent Mid back pain Myalgia On intermediate drug therapy Orthostatic hypotension Peripheral edema PMR (polymyalgia rheumatica) Right flank pain Vitamin D deficiency (~03/09/19) Surgical History Surgical History H/O breast biopsy H/O colonoscopy with polypectomy H/O heart artery stent H/O thyroidectomy Partial Hx of cholecystectomy Family History Family History Grandparent Diabetes mellitus Mother Family history of malignant neoplasm of ovary Hyperte
--- NOTE | 2020-10-25 16:18 | ADMGEN ---
This patient, Allyson Tello, was admitted to [facility] Surg Room 312-01. Patient/family oriented to hospital policies and general routines including ID bracelet, bed and alarms, visiting hours, pain management, procedures, bathroom and other care routines, personal items, smoking policy, room service/diet, and visiting hours. Information on how to activate the Rapid Response Team has been discussed. Patient/Family are encouraged to report perceived risks to care and to ask questions if they do not understand what they are told or what they should do.
--- NOTE | 2020-10-25 16:40 | PM.IMHP ---
H&P: HPI History of Present Illness Date/Time: 10/25/20 16:40 this is a 74-year-old female patient was feeling confused and dizzy she felt very weak. She had some achiness and some abdominal discomfort with some urinary frequency. She had some nausea. She denied any sick contacts. I question the about their water source. They did stay in a fisherer [facility] water source therapy. The patient's stated that he did not have any old water in their water tank. The is not sick. The patient is complaining of a mild headache with fever and chills. The patient is currently on steroids. The patient has been seeing Dr. marcela torres due to changes in her voice and that is why she was started on the prednisone. She is on a prednisone taper. The patient is to be on this taper for several weeks. White count was noted to be 19.2 however her last white count was 15.2 on 09/25/2020. The patient denies any sore throat. And her voice is back to normal. Her chest x-ray was read as no acute cardiopulmonary disease. Abdominal pelvis CT was read as punctate gas collection in the bladder which may be related to recent instrumentation although cystitis should be considered in the appropriate clinical setting. The patient stated she recently had a Lexiscan on 09/13/2020 which was reported as no definite ischemia or infarction. Normal left ventricular ejection fraction greater than 70%. The patient was started on IV fluids, Tylenol, Compazine, Pepcid, Rocephin and lactated Ringer's. 3+ glucose in it but was negative for UTI. The patient stated that she was not in the [place] while [place] or with she exposed to any ticks. The patient was empirically started on Rocephin. However I talked to my collaborative about the camping trip and he suggested that we start doxycycline empirically for possible take related diseases. Patient is being admitted to observation status on the date of service of 10/26/2019 Chief Complaint: Fever Review of Systems Review of Systems: All systems reviewed & are unremarkable except as noted in HPI and below Constitutional: Constitutional: Reports as per HPI and Reports no additional constitutional complaints Eyes: Eyes: Reports as per HPI and Reports no additional eye complaints ENT: Reports system reviewed and no additional complaints, except as documented and Reports Normal hearing present Cardiovascular: Cardiovascular: Reports no additional cardiovascular complaints Respiratory: Respiratory: Reports no additional respiratory complaints and Reports no additional respiratory complaints Gastrointestinal: Gastrointestinal: Reports as per HPI and Reports no additional gastrointestinal complaints Musculoskeletal: Musculoskeletal: Reports no additional musculoskeletal complaints Integumentary/Breasts: Skin/Breast: Reports system reviewed and no additional complaints, except as docu and Reports as per HPI Neurologic: Reports system reviewed and no additional complaints, except as documented, Reports as per HPI and Reports Normal hearing present Psychiatric: Psychiatric: Reports no additional psychiatric complaints and Reports as per HPI Endocrine: Endocrine: Reports no additional endocrine complaints Hematologic/Lymphatic: Hematologic/Lymphatic: Reports no additional hematologic/lymphatic complaints Allergic/Immunologic: Allergic/Immunologic: Reports no additional allergic/immunologic complaints [facility] Past Medical History Medical History Abnormal EKG Abnormal finding of blood chemistry Abnormal mammogram Abnormal screening mammogram Anxiety with depression ASHD (arteriosclerotic heart disease) BMI 32.0-32.9,adult BMI 34.0-34.9,adult BMI 35.0-35.9,adult Bruit Cardiac enzymes elevated Cervicalgia Chronic pain CKD (chronic kidney disease) Dizziness DJD (degenerative joint disease) DM type 2 (diabetes mellitus, type 2) PERKINS (dyspnea on exertion) Elevated tomasa
[2020-10-25 17:39] LABS: Glucose Point of Care 129 mg/dl (65-105)
[2020-10-25 17:54] LABS: Hemoglobin A1C 8.3 % (<5.7)
[2020-10-25] MEDS: LACTATED RINGERS 1,000 ML 100 ML IV CONT (18:30)
[2020-10-25] MEDS: METOPROLOL SUCCINATE EXT REL 50 MG TABCR PO (21:15)
[2020-10-25] MEDS: MONTELUKAST SODIUM 10 MG TABLET PO (21:15)
[2020-10-25] MEDS: ROSUVASTATIN 10 MG TABLET 40 MG PO (21:15)
[2020-10-25] MEDS: PANTOPRAZOLE 40 MG TABLET PO (21:15)
[2020-10-25] MEDS: OMEGA 3 POLYUNSAT FATTY ACIDS 1 GM CAP PO (21:15)
[2020-10-25] MEDS: GABAPENTIN 100 MG CAPSULE PO (22:30)
[2020-10-26 06:00] VITALS: BP 129/63; PULSE 69; RESP 18; TEMP 36.2; O2SAT 97
[2020-10-26] MEDS: GABAPENTIN 100 MG CAPSULE PO ×3 (06:04→20:47)
[2020-10-26] MEDS: LEVOTHYROXINE SODIUM 112 MCG TABLET PO (06:05)
[2020-10-26 06:13] LABS: Glucose Point of Care 101 mg/dl (65-105)
[2020-10-26 06:29] LABS: Basophils Percent Auto 0.4 % (0.2-1.2); Eosinophils Absolute Auto 0.1 K/mm3 (0-0.3); Hematocrit 38.7 % (37.0-47.0); Hemoglobin 12.5 g/dL (12.0-15.0); Immature Granulocyte Absolute 0.11 K/mm3 (0.00-0.031); Immature Granulocyte Percent A 1.1 % (0-0.5); Lymphocytes Absolute Auto 1.62 K/mm3 (0.9-3.2); Lymphocytes Percent Auto 15.5 % (18.3-44.2); Mean Corpuscular HGB Conc 32.3 g/dl (32-36); Mean Corpuscular Hemoglobin 28.7 pg (26-34); Mean Corpuscular Volume 88.8 fl (80-100); Mean Platelet Volume 9.6 fl (7.4-10.4); Monocytes Absolute Auto 0.9 K/mm3 (0.1-0.6); Monocytes Percent Auto 8.4 % (2.6-8.5); Neutrophils Absolute Auto 7.7 K/mm3 (1.3-6.7); Neutrophils Percent Auto 73.6 % (45.5-73.1); Platelet Count Result 184 k/mm3 (150-375); Red Blood Count 4.36 M/mm3 (4.2-5.4); Red Cell Distribution Width 15.9 % (11.5-14.5); White Blood Count 10.4 K/mm3 (4.5-10.0)
[2020-10-26 06:45] LABS: Alanine Aminotransferase 46 U/L (4-35); Albumin Level 3.5 g/dL (3.5-5.1); Alkaline Phosphatase 77 U/L (38-126); Anion Gap 6 mmol/L (8-16); Aspartate Amino Transferase 32 U/L (14-36); Bilirubin,Total 2.4 mg/dL (0.2-1.3); Blood Urea Nitrogen 15 mg/dL (7-17); Calcium 9.2 mg/dL (8.4-10.2); Carbon Dioxide 27 mmol/L (22-30); Chloride 103 mmol/L (98-107); Estimated CRCL calculation 52 ml/min; Estimated Glomerular Filt Rate 54; Glucose 95 mg/dL (65-105); Potassium 3.5 mmol/L (3.4-5.0); Sodium 136 mmol/L (137-145)
[2020-10-26] MEDS: predniSONE 10 MG TABLET PO (08:21)
[2020-10-26] MEDS: OMEGA 3 POLYUNSAT FATTY ACIDS 1 GM CAP PO ×2 (08:21→20:46)
[2020-10-26] MEDS: ASPIRIN 81 MG ENTERIC TABLET PO (08:21)
[2020-10-26] MEDS: buPROPion HCL XL (24 HR) 150 MG TABCR 300 MG PO (08:21)
[2020-10-26] MEDS: ESCITALOPRAM OXALATE 10 MG TABLET PO (08:22)
[2020-10-26] MEDS: CHOLECALCIFEROL 1,000 UNITS TABLET 1000 UNITS PO (08:22)
[2020-10-26] MEDS: CYANOCOBALAMIN 1,000 MCG TABLET 1000 MCG PO (08:22)
[2020-10-26] MEDS: FAMOTIDINE 20 MG/2 ML VIAL IV PUSH (08:22)
[2020-10-26] MEDS: CALCIUM CARBONATE (OSCAL) 500 MG TABLET PO (08:22)
[2020-10-26] MEDS: ENOXAPARIN 40 MG/0.4 ML SYRINGE SUB-Q (08:23)
[2020-10-26 08:34] LABS: Glucose Point of Care 106 mg/dl (65-105)
[2020-10-26 11:37] LABS: Glucose Point of Care 152 mg/dl (65-105)
[2020-10-26 12:00] VITALS: BP 116/51; PULSE 76; RESP 18; TEMP 36.7; O2SAT 95
--- NOTE | 2020-10-26 12:00 | WPDINFPN2 ---
Progress Note: A&P Assessment and Plan (1) Fever: Code(s): R50.9 - Fever, unspecified Status: Acute Assessment and Plan: fever, resolved REC No empiric antibiotics. Micro in process, and I would be glad to re-address if + findings. Subjective Date/time seen: 10/26/20 12:00 Objective Data Vital Signs Vital Signs: Vital Signs - 24 hr 10/25/20 12:15 10/25/20 12:31 10/25/20 12:45 Temperature Pulse Rate 71 75 66 Respiratory Rate 20 17 19 Blood Pressure Pulse Oximetry 97 97 98 10/25/20 13:00 10/25/20 13:15 10/25/20 13:30 Temperature Pulse Rate 74 68 67 Respiratory Rate 21 H 18 18 Blood Pressure Pulse Oximetry 97 95 97 10/25/20 13:45 10/25/20 14:01 10/25/20 14:18 Temperature Pulse Rate 67 66 66 Respiratory Rate 17 20 21 H Blood Pressure Pulse Oximetry 95 10/25/20 14:30 10/25/20 14:45 10/25/20 15:01 Temperature Pulse Rate 62 67 65 Respiratory Rate 18 24 H 18 Blood Pressure Pulse Oximetry 10/25/20 15:20 10/25/20 15:37 10/25/20 17:00 Temperature 36.7 C Pulse Rate 76 66 93 Respiratory Rate 23 H 16 16 Blood Pressure 116/61 115/62 Pulse Oximetry 99 93 10/25/20 22:47 10/26/20 06:00 Temperature 37.0 C 36.2 C L Pulse Rate 79 69 Respiratory Rate 16 18 Blood Pressure 124/52 L 129/63 Pulse Oximetry 94 97 Intake/Output Intake/Output: Intake & Output 10/23/20 10/24/20 10/25/20 10/26/20 23:59 23:59 23:59 23:59 Intake Total 2490 400 Output Total 0 Balance 2490 400 Meds/Results Medications: Active Medications Generic Name Dose Route Start Last Admin Trade Name Freq PRN Reason Stop Dose Admin Albuterol 2 puff 10/25/20 17:22 Albuterol Sulfate (*Sp) Aerosol 1 Puff INHALATION Q6HRT PRN Shortness Of Breath Aspirin 81 mg 10/26/20 09:00 10/26/20 08:21 Aspirin 81 Mg Enteric Tablet PO 81 mg DAILY JIGNA Administration Bupropion HCl 300 mg 10/26/20 09:00 10/26/20 08:21 Bupropion Hcl Xl (24 Hr) 150 Mg Tabcr PO 300 mg QAM JIGNA Administration Calcium Carbonate 500 mg 10/26/20 09:00 10/26/20 08:22 Calcium Carbonate (Oscal) 500 Mg Tablet PO 11/25/20 09:01 500 mg DAILY JIGNA Administration Cyanocobalamin 1,000 mcg 10/26/20 09:00 10/26/20 08:22 Cyanocobalamin 1,000 Mcg Tablet PO 1,000 mcg DAILY JIGNA Administration Dextrose 12.5 gm 10/25/20 17:20 Dextrose 50% 25 Gm/50 Ml Syringe IV PUSH PRN PRN Hypoglycemia Protocol Enoxaparin Sodium 40 mg 10/26/20 09:00 10/26/20 08:23 Enoxaparin 40 Mg/0.4 Ml Syringe SUB-Q 40 mg DAILY JIGNA Administration Escitalopram Oxalate 10 mg 10/26/20 09:00 10/26/20 08:22 Escitalopram Oxalate 10 Mg Tablet PO 10 mg DAILY JIGNA Administration Famotidine 20 mg 10/25/20 21:00 10/26/20 08:22 Famotidine 20 Mg/2 Ml Vial IV PUSH 20 mg Q12HR JIGNA Administration Fish Oil 1 gm 10/25/20 21:00 10/26/20 08:21 Sod 3 Polyunsat Fatty Acids 1 Gm Cap PO 1 gm Q12HR JIGNA Administration Gabapentin 100 mg 10/25/20 22:00 10/26/20 06:04 Gabapentin 100 Mg Capsule PO 100 mg Q8HR JIGNA Administration Glucagon 1 mg 10/25/20 17:20 Glucagon For Inj 1 Mg Vial IM PRN PRN Hypoglycemia Protocol Glucose 15 gm 10/25/20 17:20 Glucose Oral Gel 15 Gm Of Glucse In 37.5 Gm Tube PO PRN PRN Hypoglycemia Protocol Ceftriaxone Sodium/Dextrose 1 gm in 50 mls @ 100 mls/hr 10/26/20 12:00 10/26/20 11:40 Rocephin 1 Gm/D5w 50 Ml IVPB 100 mls/hr Q24H JIGNA Administration Acetaminophen 1,000 mg in 100 mls @ 400 mls/hr 10/25/20 13:09 10/26/20 11:24 Ofirmev 1,000 Mg Ivpb IVPB 10/26/20 13:10 Infused Q6H PRN Infusion Mild Pain (1-3) or Fever Lactated Ringer's 1,000 mls @ 100 mls/hr 10/25/20 13:10 10/25/20 18:30 Lr - Lactated Ringers Iv IV CONT 100 mls/hr .Q10H JIGNA Administration Doxycycline Hyclate 100 mg in 100 mls @ 100 mls/hr 10/25/20 18:00 10/26/20 06:48
--- NOTE | 2020-10-26 12:27 | CONS_ITS ---
DATE OF CONSULTATION: 10/26/2020 REASON FOR CONSULTATION: Fever. HISTORY OF PRESENT ILLNESS: A 74-year-old female with polymyalgia rheumatica. She was started on prednisone 40 mg daily about 3 months ago and has now been tapered down to 10 mg daily, at this dose for the past week. No other immunosuppressants. She has been on no antibiotics recently for any reason. She has a history of recurrent vertigo and presented to the hospital yesterday with the same. She had a temperature 37.8, was started on ceftriaxone and doxycycline and consultation requested. The patient had been camping 4 days prior to admission, but knows of no bites nor skin injuries. She has had no rash, diarrhea, vomiting, dyspnea, cough, headache, visual disturbance. MEDICATIONS: Prednisone continues. Others listed. HABITS: Ex-smoker. No alcohol. ALLERGIES: NONE PERTINENT. PAST MEDICAL HISTORY: In addition to the above, cholecystectomy, radiation therapy for tonsillitis when she was a child, apparently which then led to thyroid cancer, which has been resected. Coronary artery disease, colon polyps, breast biopsy, vitamin D deficiency, orthostatic hypotension, bundle branch block, hyperlipidemia, familial tremor, hoarseness, hearing loss, type 2 diabetes mellitus, DJD, renal insufficiency, morbid obesity, anxiety, and depression. REVIEW OF SYSTEMS: 14-point review otherwise negative. FAMILY HISTORY: Not pertinent to her present illness. 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 Children. PHYSICAL EXAMINATION: GENERAL: Elderly female, who appears younger than her actual age. No acute distress. VITAL SIGNS: 37.8 is the T-max, since afebrile, 69, 18, 129/63, 97% on room air. SKIN: No rashes. Warm and dry. EENT: Conjunctivae are normal. The oropharynx, oral mucosa normal. Teeth in excellent repair. NECK: No masses, thyromegaly, meningismus. Thyroidectomy scar is very well healed. CHEST: No indwelling vascular devices. LUNGS: Clear to auscultation and percussion. CARDIAC: Regular rate and rhythm. No murmur, gallop, or rub. Pulses are 2+ and equal. ABDOMEN: Morbidly obese, nontender. No masses. No organomegaly. No evidence of ascites. EXTREMITIES: No clubbing, cyanosis, edema. LABORATORY DATA: White blood cell count has been intermittently high as recorded on the EMR, was 15.2 as an outpatient 09/25, 19.2 yesterday, now 10.4, hemoglobin 12.5, platelets are 184, differential is unremarkable. Blood gases, pO2 of 54. Other findings noted. She has mild hyponatremia. BUN, creatinine normal range. Glucose 152. A1c 8.3%, bilirubin 2.4, ALT 46, AST is 32, which are dropping from previously. Albumin normal. Urinalysis 3+ glucose, otherwise normal. RADIOLOGY: CT of the abdomen and pelvis showed a minute focus of air in the urinary bladder, otherwise normal. Chest x-ray normal. ASSESSMENT: 1. Acute febrile illness, resolved. I doubt tick borne illness from her recent camping trip. I also doubt other acute infections of consequence. 2. On prednisone, not substantially immunosuppressed. 3. PMR. 4. Intermittent leukocytosis, in part due to steroids, nearly resolved at the present time. 5. History of thyroid cancer. 6. Colon polyps. RECOMMENDATIONS: 1. No empiric antibiotics. 2. Multiple cultures and serologies are in process. I anticipate that these will not be revealing, but we will be glad to readdress if positive findings are documented. Discussed with the patient and her . Thank you very much for asking me to see her. AMADOR VALDES M.D. MULTIFOLD OPERATOR MULTIFOLD OPERATOR D Job #: [id number]
--- NOTE | 2020-10-26 14:05 | PM.IMPN ---
Progress Note: A&P Assessment and Plan (1) Altered mental status: Code(s): R41.82 - Altered mental status, unspecified Status: Acute Assessment and Plan: Patient is 74-year-old woman with polymyalgia rheumatica on steroid taper, diabetes, CKD, who presented to the emergency room with dizziness, generalized weakness, confusion which prompted her to bring her to the emergency room for further evaluation. The patient does not remember what happened prior to arrival. She had a fever of 100? F, non tachycardic at 79 beats per minute, elevated blood pressure to 180/86, pulse ox was hypoxic at 88% on room air. Initial labs showed Leukocytosis at 19,200, with elevated neutrophils at 85%. Normal coag panel, normal D-dimer. ABG showed she was hypoxic with low PO2 and oxygen saturation at 88% on room air. Her pH was normal and pCO2 was normal. CMP showed creatinine 1.1, BUN 19 and calcium was elevated at 10.3 which could be from some dehydration. CO2 was 31. Glucose was 181 with a hemoglobin A1c is 8.3%. 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 Normal lipase. Urinalysis showing 3+ glucose, budding yeast, but no signs of an acute infection. CT abdomen showed no acute abnormality. (Punctate gas collection in bladder which could be from straight cath). There was possible cystitis but the patient has no urinary symptoms and UA was normal. Chest x-ray showed no acute cardiopulmonary disease. She denies any respiratory symptoms at this time. Blood cultures were drawn and are negative to date at this time. Infectious disease, Dr. Leija, was consulted who evaluated the patient and felt she had no signs and symptoms of having any type of an infection. He has discontinued her antibiotics. Recommended monitoring her blood culture results for any growth. Currently at this time she is no longer confused. She still feels weak and fatigued. Not having any more dizziness issues. Will continue monitoring overnight for 1 more evening, monitoring for any fevers, recheck labs in the morning and ensure leukocytosis is continuing to improve. Will discontinue IV fluids at this time. Continue monitoring. (2) Generalized weakness: Code(s): R53.1 - Weakness Status: Acute Assessment and Plan: Will order PT and OT for further evaluation on her generalized weakness. It is improved since arrival with IV fluid hydration. Continue monitoring. (3) Dizziness: Code(s): R42 - Dizziness and giddiness Status: Acute Assessment and Plan: Resolved. Will add p.r.n. meclizine and p.r.n. Valium for breakthrough dizziness. (4) Fever: Code(s): R50.9 - Fever, unspecified Status: Acute Assessment and Plan: No more fevers since arrival. Continue monitoring overnight. (5) Hypertension associated with diabetes: Code(s): E11.59 - Type 2 diabetes mellitus with other circulatory complications; I15.2 - Hypertension secondary to endocrine disorders Status: Acute Assessment and Plan: Will continue the patient's home medications. Patient's blood pressure this morning was 129/63. Stable. She did receive IV fluid hydration since admission for some dehydration. Will discontinue IV fluids at this time. Continue monitoring make adjustments if needed. (6) Hypothyroidism: Code(s): E03.9 - Hypothyroidism, unspecified Status: Chronic Assessment and Plan: Continue with levothyroxine and check thyroid level. (7) DM type 2 (diabetes mellitus, type 2): Qualifiers:
[2020-10-26] MEDS: INSULIN ASPART (*BKC) 100 UNITS/ML SUB-Q (17:22)
[2020-10-26 17:23] LABS: Glucose Point of Care 247 mg/dl (65-105)
[2020-10-26 20:00] VITALS: PULSE 70; RESP 18; O2SAT 94
[2020-10-26 20:46] VITALS: PULSE 76
[2020-10-26] MEDS: MONTELUKAST SODIUM 10 MG TABLET PO (20:46)
[2020-10-26] MEDS: ROSUVASTATIN 10 MG TABLET 40 MG PO (20:46)
[2020-10-26] MEDS: METOPROLOL SUCCINATE EXT REL 50 MG TABCR PO (20:46)
[2020-10-26] MEDS: FAMOTIDINE 20 MG TABLET PO (20:47)
[2020-10-26 21:18] LABS: Glucose Point of Care 198 mg/dl (65-105)
[2020-10-26 21:56] VITALS: BP 122/52; PULSE 70; RESP 18; TEMP 37; O2SAT 94
[2020-10-27 05:30] VITALS: BP 140/52; PULSE 69; RESP 20; TEMP 36.9; O2SAT 95
[2020-10-27 06:29] LABS: Hematocrit 37.8 % (37.0-47.0); Hemoglobin 12.1 g/dL (12.0-15.0); Mean Corpuscular Hemoglobin 28.5 pg (26-34); Mean Corpuscular Volume 89.2 fl (80-100); Mean Platelet Volume 9.9 fl (7.4-10.4); Platelet Count Result 170 k/mm3 (150-375); Red Blood Count 4.24 M/mm3 (4.2-5.4); Red Cell Distribution Width 15.9 % (11.5-14.5); White Blood Count 9.4 K/mm3 (4.5-10.0)
[2020-10-27] MEDS: GABAPENTIN 100 MG CAPSULE PO (06:40)
[2020-10-27] MEDS: LEVOTHYROXINE SODIUM 125 MCG TABLET PO (06:40)
[2020-10-27 06:46] LABS: Ammonia < 9 umol/L (9-30)
[2020-10-27 06:55] LABS: Alanine Aminotransferase 38 U/L (4-35); Albumin Level 3.3 g/dL (3.5-5.1); Alkaline Phosphatase 83 U/L (38-126); Anion Gap 6 mmol/L (8-16); Aspartate Amino Transferase 25 U/L (14-36); Bilirubin,Total 1.5 mg/dL (0.2-1.3); Blood Urea Nitrogen 17 mg/dL (7-17); CRP 2.6 mg/dL (<1.0); Calcium 9.3 mg/dL (8.4-10.2); Carbon Dioxide 26 mmol/L (22-30); Chloride 105 mmol/L (98-107); Estimated CRCL calculation 57 ml/min; Estimated Glomerular Filt Rate > 60; Glucose 112 mg/dL (65-105); Potassium 3.4 mmol/L (3.4-5.0); Sodium 137 mmol/L (137-145)
[2020-10-27 08:39] LABS: Glucose Point of Care 134 mg/dl (65-105)
[2020-10-27] MEDS: ESCITALOPRAM OXALATE 10 MG TABLET PO (09:26)
[2020-10-27] MEDS: ASPIRIN 81 MG ENTERIC TABLET PO (09:26)
[2020-10-27] MEDS: CHOLECALCIFEROL 1,000 UNITS TABLET 1000 UNITS PO (09:26)
[2020-10-27] MEDS: ENOXAPARIN 40 MG/0.4 ML SYRINGE SUB-Q (09:27)
[2020-10-27] MEDS: buPROPion HCL XL (24 HR) 150 MG TABCR 300 MG PO (09:27)
[2020-10-27] MEDS: predniSONE 10 MG TABLET PO (09:27)
[2020-10-27] MEDS: CALCIUM CARBONATE (OSCAL) 500 MG TABLET PO (09:27)
[2020-10-27] MEDS: OMEGA 3 POLYUNSAT FATTY ACIDS 1 GM CAP PO (09:27)
[2020-10-27 10:48] LABS: Free T4 Free Thyroxine Reflex 1.23 ng/dL (0.78-2.19)
[2020-10-27] MEDS: FAMOTIDINE 20 MG TABLET PO (11:02)
[2020-10-27] MEDS: CYANOCOBALAMIN 1,000 MCG TABLET 1000 MCG PO (11:02)
--- NOTE | 2020-10-27 11:47 | PCOTNOTE ---
Attempted OT evaluation, but unable to complete as patient refused. Patient stated, I don't want to do any occupational therapy. I'm weak, but that's to be expected. Once I'm home, I think I will be okay .
[2020-10-27 12:05] LABS: Total Triiodothyronine (T3) 0.63 NG/ML (0.97-1.69)
[2020-10-27 12:09] LABS: Glucose Point of Care 177 mg/dl (65-105)
--- NOTE | 2020-10-27 12:10 | PM.DS ---
DS: Admitting Diagnosis Admitting Diagnosis Admitting Diagnosis: Dizziness, confusion DS: Discharge Diagnosis Discharge Diagnosis (1) Altered mental status: Code(s): R41.82 - Altered mental status, unspecified Status: Acute Assessment and Plan: Patient is 74-year-old woman with polymyalgia rheumatica on steroid taper, diabetes, CKD, who presented to the emergency room with dizziness, generalized weakness, confusion which prompted her to bring her to the emergency room for further evaluation. The patient does not remember what happened prior to arrival. She had a fever of 100? F, non tachycardic at 79 beats per minute, elevated blood pressure to 180/86, pulse ox was hypoxic at 88% on room air. Initial labs showed Leukocytosis at 19,200, with elevated neutrophils at 85%. Normal coag panel, normal D-dimer. ABG showed she was hypoxic with low PO2 and oxygen saturation at 88% on room air. Her pH was normal and pCO2 was normal. CMP showed creatinine 1.1, BUN 19 and calcium was elevated at 10.3 which could be from some dehydration. CO2 was 31. Glucose was 181 with a hemoglobin A1c is 8.3%. 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 Normal lipase. Urinalysis showing 3+ glucose, budding yeast, but no signs of an acute infection. CT abdomen showed no acute abnormality. (Punctate gas collection in bladder which could be from straight cath). There was possible cystitis but the patient has no urinary symptoms and UA was normal. Chest x-ray showed no acute cardiopulmonary disease. She denies any respiratory symptoms at this time. Blood cultures were drawn and are negative to date at this time. Infectious disease, Dr. Leija, was consulted who evaluated the patient and felt she had no signs and symptoms of having any type of an infection. He has discontinued her antibiotics. Recommended monitoring her blood culture results for any growth. Currently at this time she is no longer confused. She is feeling better at this time. No fevers, chills, lightheadedness or dizziness issues. She would like to be discharged today since she is feeling better. the patient is otherwise stable at this time. Continue home on normal medications without any adjustments. Told to follow with primary care in 1 week for further evaluation after admission. She understands and agrees with the plan all questions answered. (2) Generalized weakness: Code(s): R53.1 - Weakness Status: Acute Assessment and Plan: Will order PT and OT for further evaluation on her generalized weakness. She refused to work with PT and OT. She states she is fine to be discharged home at this time even though she is having some weakness and fatigue. (3) Dizziness: Code(s): R42 - Dizziness and giddiness Status: Acute Assessment and Plan: Resolved. told patient to purchase some [id number] Antivert for dizziness as needed. (4) Fever: Code(s): R50.9 - Fever, unspecified Status: Acute Assessment and Plan: No more fevers since arrival. Continue monitoring overnight. (5) Hypertension associated with diabetes: Code(s): E11.59 - Type 2 diabetes mellitus with other circulatory complications; I15.2 - Hypertension secondary to endocrine disorders Status: Acute Assessment and Plan: Will continue the patient's home medications. Patient's blood pressure this morning was 140/52 Stable Prior to medications being given (6) Hypothyroidism: Code(s): E03.9 - Hypothyroidism, unspecified Status: Chronic Assessment and Plan: Con
[2020-10-30 14:00] LABS: Lyme Disease Ab (IgM), Blot Negative (Negative); Lyme Disease Ab(IgG), Blot Negative (Negative)
--- NOTE | 2020-10-31 10:00 | PC.NURSE ---
Lyme testing is negative.
--- NOTE | 2020-11-08 10:20 | PC.NURSE ---
Blood cx negative.
== END 2020-10-27 12:56 | disposition home or self-care (01) ==
LOC: ANHED 13:08 → ANH3MEDSUR 14:05
PROVIDERS: Emergency Medicine Emergency Medical Services; Nurse Practitioner; Physician Assistant; Admitting Provider Internal Medicine; Emergency Provider Emergency Medicine; PCP Internal Medicine; Visit Provider Emergency Medicine
DX: R41.82 Altered mental status, unspecified (principal); M35.3 Polymyalgia rheumatica; R53.1 Weakness; R09.02 Hypoxemia; R50.9 Fever, unspecified; D72.829 Elevated white blood cell count, unspecified; E11.59 Type 2 diabetes mellitus with other circulatory complications; I12.9 Hypertensive chronic kidney disease with stage 1 through stage 4 chronic kidney disease, or unspecified chronic kidney disease; E11.22 Type 2 diabetes mellitus with diabetic chronic kidney disease; E03.9 Hypothyroidism, unspecified; J44.9 Chronic obstructive pulmonary disease, unspecified; R06.09 Other forms of dyspnea; F41.8 Other specified anxiety disorders; N18.9 Chronic kidney disease, unspecified; Z87.891 Personal history of nicotine dependence; Z85.850 Personal history of malignant neoplasm of thyroid
CPT/HCPCS: 36415; 36600; 51701; 71045; 74176; 80053; 81001; 82140; 82248; 82375; 82805; 82948; 83036; 83050; 83605; 83690; 83880; 84439; 84443; 84480; 85025; 85027; 85380; 85610; 85730; 86140; 86617; 87040; 93005; 96361; 96365; 96366; 96367; 96372; 96375; 96376; 99285; A9270; G0378; J0131; J0696; J0780; J1650; J1815; J7030; J7120; J7512

== ENCOUNTER 2020-11-01 13:17 | Outpatient (CLI) | payer MEDICARE, SELFPAY ==
[2020-11-01 14:14] LABS: Hemoglobin A1C 8.1 % (<5.7)
[2020-11-01 14:15] LABS: Anion Gap 10 mmol/L (8-16); Blood Urea Nitrogen 20 mg/dL (7-17); CRP < 0.5 mg/dL (<1.0); Calcium 10.2 mg/dL (8.4-10.2); Carbon Dioxide 24 mmol/L (22-30); Chloride 103 mmol/L (98-107); Estimated Glomerular Filt Rate 40; Glucose 199 mg/dL (65-105); Potassium 3.5 mmol/L (3.4-5.0); Sodium 137 mmol/L (137-145)
[2020-11-01 15:58] LABS: Erythrocyte Sedimentation Rate 23 mm/hr (0-20)
== END 2020-11-01 13:18 | disposition home or self-care (01) ==
LOC: ANHLAB 13:21
PROVIDERS: PCP Internal Medicine; Visit Provider Internal Medicine
DX: E11.59 Type 2 diabetes mellitus with other circulatory complications (principal); I15.2 Hypertension secondary to endocrine disorders; E11.69 Type 2 diabetes mellitus with other specified complication; Z79.899 Other long term (current) drug therapy; Z51.81 Encounter for therapeutic drug level monitoring; M35.3 Polymyalgia rheumatica
CPT/HCPCS: 36415; 80048; 83036; 85652; 86140

== ENCOUNTER 2020-11-10 15:41 | Outpatient (CLI) | payer MEDICARE, SELFPAY ==
[2020-11-10 16:24] LABS: Anion Gap 10 mmol/L (8-16); Blood Urea Nitrogen 28 mg/dL (7-17); Calcium 9.6 mg/dL (8.4-10.2); Carbon Dioxide 25 mmol/L (22-30); Chloride 102 mmol/L (98-107); Estimated Glomerular Filt Rate 44; Glucose 325 mg/dL (65-105); Potassium 4.1 mmol/L (3.4-5.0); Sodium 137 mmol/L (137-145)
== END 2020-11-10 15:42 | disposition home or self-care (01) ==
PROVIDERS: PCP Internal Medicine; Visit Provider Internal Medicine
DX: E11.69 Type 2 diabetes mellitus with other specified complication (principal); N18.1 Chronic kidney disease, stage 1; Z79.899 Other long term (current) drug therapy
CPT/HCPCS: 36415; 80048

== ENCOUNTER 2020-11-24 13:57 | Outpatient (CLI) | payer MEDICARE, SELFPAY | END 2020-11-24 13:58 | disposition home or self-care (01) | PROVIDERS: PCP Internal Medicine; Visit Provider Internal Medicine | DX: E03.9 Hypothyroidism, unspecified (principal) | CPT/HCPCS: 36415; 84443 ==

== ENCOUNTER → 2021-01-05 04:07 | Outpatient (CLI) | payer MEDICARE, SELFPAY ==
[2021-01-05 18:15] LABS: SARS-CoV-2 RNA PCR Negative
== END ==
PROVIDERS: PCP Internal Medicine; Visit Provider Internal Medicine
DX: Z20.822 Contact with and (suspected) exposure to COVID-19 (principal); R05 Cough
CPT/HCPCS: C9803; U0003; U0005

== ENCOUNTER 2021-01-22 10:19 | Outpatient (CLI) | payer MEDICARE, SELFPAY ==
[2021-01-22 11:09] LABS: LDL Cholesterol Direct 57 mg/dL
[2021-01-22 11:33] LABS: Alanine Aminotransferase 64 U/L (4-35); Albumin Level 4.1 g/dL (3.5-5.1); Alkaline Phosphatase 91 U/L (38-126); Anion Gap 11 mmol/L (8-16); Aspartate Amino Transferase 59 U/L (14-36); Bilirubin,Total 1.4 mg/dL (0.2-1.3); Blood Urea Nitrogen 21 mg/dL (7-17); CRP < 0.5 mg/dL (<1.0); Calcium 9.2 mg/dL (8.4-10.2); Carbon Dioxide 23 mmol/L (22-30); Chloride 104 mmol/L (98-107); Cholesterol 201 mg/dL (0-200); Estimated Glomerular Filt Rate 48; Glucose 237 mg/dL (65-110); Potassium 3.8 mmol/L (3.4-5.0); Sodium 138 mmol/L (137-145); Triglycerides 218 mg/dL (<150)
[2021-01-22 12:02] LABS: HDL Direct 119 mg/dL
[2021-01-22 12:03] LABS: Free T4 Free Thyroxine 0.62 ng/mL (0.78-2.19)
== END 2021-01-22 10:20 | disposition home or self-care (01) ==
PROVIDERS: PCP Internal Medicine; Visit Provider Internal Medicine
DX: E11.69 Type 2 diabetes mellitus with other specified complication (principal); E78.5 Hyperlipidemia, unspecified; E03.9 Hypothyroidism, unspecified; M35.3 Polymyalgia rheumatica; I15.2 Hypertension secondary to endocrine disorders; E11.59 Type 2 diabetes mellitus with other circulatory complications
CPT/HCPCS: 36415; 80053; 80061; 83036; 84439; 85652; 86140

== ENCOUNTER 2021-02-16 12:08 | Outpatient (CLI) | payer MEDICARE, SELFPAY ==
[2021-02-16 12:48] LABS: Basophils Absolute Auto 0.1 K/mm3 (0.0-0.1); Basophils Percent Auto 0.6 % (0.2-1.2); Eosinophils Absolute Auto 0.1 K/mm3 (0-0.3); Eosinophils Percent Auto 0.8 % (0-4.4); Hematocrit 43.2 % (37.0-47.0); Hemoglobin 13.8 g/dL (12.0-15.0); Immature Granulocyte Absolute 0.09 K/mm3 (0.00-0.031); Immature Granulocyte Percent A 0.6 % (0-0.5); Lymphocytes Absolute Auto 1.39 K/mm3 (0.9-3.2); Lymphocytes Percent Auto 9.7 % (18.3-44.2); Mean Corpuscular HGB Conc 31.9 g/dl (32-36); Mean Corpuscular Hemoglobin 29.5 pg (26-34); Mean Corpuscular Volume 92.3 fl (80-100); Monocytes Percent Auto 7.2 % (2.6-8.5); Neutrophils Absolute Auto 11.6 K/mm3 (1.3-6.7); Neutrophils Percent Auto 81.1 % (45.5-73.1); Platelet Count Result 234 k/mm3 (150-375); Red Blood Count 4.68 M/mm3 (4.2-5.4); Red Cell Distribution Width 14.3 % (11.5-14.5); White Blood Count 14.3 K/mm3 (4.5-10.0)
[2021-02-16 13:30] LABS: Thyroid Stimulating Hormone 0.197 uIU/mL (0.465-4.680)
[2021-02-16 14:09] LABS: Free T4 Free Thyroxine 1.95 ng/mL (0.78-2.19)
== END 2021-02-16 12:09 | disposition home or self-care (01) ==
PROVIDERS: PCP Internal Medicine; Visit Provider Internal Medicine
DX: E03.9 Hypothyroidism, unspecified (principal); M35.3 Polymyalgia rheumatica; R53.1 Weakness
CPT/HCPCS: 36415; 84439; 84443; 85025

== ENCOUNTER 2021-02-19 12:31 | Outpatient (CLI) | payer MEDICARE, SELFPAY ==
[2021-02-19 15:10] LABS: IFOB Positive Control Positive; Immunochemical Fecal Occult Bl Positive (N)
== END 2021-02-19 12:32 | disposition home or self-care (01) ==
LOC: ANHLAB 12:33
PROVIDERS: PCP Internal Medicine; Visit Provider Internal Medicine
DX: R19.5 Other fecal abnormalities (principal)
CPT/HCPCS: 82274

== ENCOUNTER 2021-05-19 11:02 | Outpatient (CLI) | payer MEDICARE, SELFPAY ==
[2021-05-19 11:30] LABS: Add Urine Microscopic? YES; Appearance Urine Clear (Clear); Bilirubin Urine Negative (Negative); Blood Urine Negative (Negative); Budding Yeast Urine Present /hpf; Color Urine Yellow (Yellow); Glucose Urine UA 3+ mg/dL (Negative); Ketones Urine Negative (Negative); Leukocyte Esterase Ur Trace LEU/UL (Negative); Mucus Urine Rare /lpf; Nitrate Urine Negative (Negative); Protein Urine Negative (Negative); Specific Grav Ur 1.025 (1.001-1.035); Squamous Epithelial Cell Urine Few /hpf (Few); Urobilinogen Urine Negative mg/dL (<2.0); WBC Urine 31-50 /hpf
== END 2021-05-19 11:03 | disposition home or self-care (01) ==
PROVIDERS: PCP Internal Medicine; Visit Provider Internal Medicine
DX: R30.0 Dysuria (principal)
CPT/HCPCS: 81001; 87086; 87088

== ENCOUNTER 2021-05-29 14:10 | Outpatient (CLI) | payer MEDICARE, SELFPAY ==
[2021-05-29 14:41] LABS: Basophils Absolute Auto 0.1 K/mm3 (0.0-0.1); Basophils Percent Auto 0.6 % (0.2-1.2); Eosinophils Absolute Auto 0.2 K/mm3 (0-0.3); Eosinophils Percent Auto 1.3 % (0-4.4); Hemoglobin 13.7 g/dL (12.0-15.0); Immature Granulocyte Absolute 0.08 K/mm3 (0.00-0.031); Immature Granulocyte Percent A 0.6 % (0-0.5); Lymphocytes Absolute Auto 1.66 K/mm3 (0.9-3.2); Lymphocytes Percent Auto 11.8 % (18.3-44.2); Mean Corpuscular HGB Conc 31.9 g/dl (32-36); Mean Corpuscular Hemoglobin 29.2 pg (26-34); Mean Corpuscular Volume 91.7 fl (80-100); Mean Platelet Volume 10.1 fl (7.4-10.4); Monocytes Absolute Auto 0.8 K/mm3 (0.1-0.6); Monocytes Percent Auto 5.8 % (2.6-8.5); Neutrophils Absolute Auto 11.2 K/mm3 (1.3-6.7); Neutrophils Percent Auto 79.9 % (45.5-73.1); Platelet Count Result 246 k/mm3 (150-375); Red Blood Count 4.69 M/mm3 (4.2-5.4); Red Cell Distribution Width 15.6 % (11.5-14.5)
[2021-05-29 15:01] LABS: Alanine Aminotransferase 26 U/L (4-35); Albumin Level 4.4 g/dL (3.5-5.1); Alkaline Phosphatase 83 U/L (38-126); Anion Gap 10 mmol/L (8-16); Aspartate Amino Transferase 21 U/L (14-36); Bilirubin,Total 1.5 mg/dL (0.2-1.3); Blood Urea Nitrogen 21 mg/dL (7-17); CRP < 0.5 mg/dL (<1.0); Calcium 9.8 mg/dL (8.4-10.2); Carbon Dioxide 30 mmol/L (22-30); Chloride 102 mmol/L (98-107); Cholesterol 205 mg/dL (0-200); Estimated Glomerular Filt Rate 40; Glucose 162 mg/dL (65-110); HDL Direct 105 mg/dL; Sodium 142 mmol/L (137-145); Triglycerides 221 mg/dL (<150)
[2021-05-29 15:10] LABS: LDL Cholesterol Direct 62 mg/dL
[2021-05-29 15:51] LABS: Erythrocyte Sedimentation Rate 13 mm/hr (0-20)
[2021-05-29 17:01] LABS: Creatinine Urine 169.2 mg/dL
[2021-05-29 17:04] LABS: MALB Creatinine Ratio 92.7 mg/g (0-30); Microalbumin Urine Random 156.9 mg/L (0-16.7)
[2021-05-29 17:49] LABS: Free T4 Free Thyroxine 0.71 ng/mL (0.78-2.19); Vitamin D 25 Hydroxy 65.3 ng/mL
[2021-05-29 22:02] LABS: Hemoglobin A1C 7.2 % (<5.7)
== END 2021-05-29 14:11 | disposition home or self-care (01) ==
PROVIDERS: PCP Internal Medicine; Visit Provider Internal Medicine
DX: M35.3 Polymyalgia rheumatica (principal); E11.69 Type 2 diabetes mellitus with other specified complication; E78.5 Hyperlipidemia, unspecified; E03.9 Hypothyroidism, unspecified; E55.9 Vitamin D deficiency, unspecified; E11.59 Type 2 diabetes mellitus with other circulatory complications; I15.2 Hypertension secondary to endocrine disorders
CPT/HCPCS: 36415; 80053; 80061; 82043; 82306; 83036; 84439; 84443; 85025; 85652; 86140

== ENCOUNTER 2021-06-14 11:07 | Outpatient (CLI) | payer MEDICARE, SELFPAY | END 2021-06-14 11:08 | disposition home or self-care (01) | LOC: ANHAUDASC 11:09 | PROVIDERS: PCP Internal Medicine; Visit Provider Internal Medicine | DX: H91.93 Unspecified hearing loss, bilateral (principal) | CPT/HCPCS: 99199 ==

== ENCOUNTER 2021-06-14 16:05 | Outpatient (CLI) | payer MEDICARE, SELFPAY ==
[2021-06-14 16:20] LABS: Hematocrit 42.3 % (37.0-47.0); Hemoglobin 13.5 g/dL (12.0-15.0)
[2021-06-14 20:20] LABS: Iron 94 ug/dL (37-170)
[2021-06-14 20:23] LABS: Percent Iron Saturation 26 % (20-50)
== END 2021-06-14 16:06 | disposition home or self-care (01) ==
LOC: ANHLAB 16:07
PROVIDERS: PCP Internal Medicine; Visit Provider Internal Medicine
DX: D64.9 Anemia, unspecified (principal); Z79.899 Other long term (current) drug therapy; R19.5 Other fecal abnormalities; Z86.010 Personal history of colon polyps
CPT/HCPCS: 36415; 82728; 83540; 83550; 85014; 85018

== ENCOUNTER 2021-06-30 19:13 | Emergency (ER) | payer MEDICARE, SELFPAY ==
--- NOTE | ~2021-06-30 | XR_ITS ---
EXAMINATION: XR chest 2V DATE: 06/30/2021 20:42 INDICATION: Weakness TECHNIQUE: AP and lateral views of the chest are obtained. COMPARISON: 10/25/2020 FINDINGS: The lungs are free of acute opacities. There is no pleural effusion or pneumothorax. The ca rdiomediastinal silhouette is normal. There is moderate thoracic spondylosis. IMPRESSION: 1. No acute cardiopulmonary abnormality. Reviewed, dictated and finalized at location F. T WRITER
--- NOTE | 2021-06-30 19:27 | ECG_ITS ---
Measurements Intervals [place] Rate: 60 P: 88 SC: 197 QRS: 39 QRSD: 168 T: 95 QT: 455 QTc: 455 Interpretive Statements SINUS RHYTHM LEFT BUNDLE BRANCH BLOCK ABNORMAL ECG Electronically Signed On 07-01-2021 7:21:49 TOOL AND DIE REPAIR by Alvin Morrow D.O.
[2021-06-30 19:29] VITALS: BP 122/73; PULSE 65; RESP 14; O2SAT 99
[2021-06-30 19:35] VITALS: PULSE 63
[2021-06-30 19:49] LABS: Basophils Absolute Auto 0.1 K/mm3 (0.0-0.1); Basophils Percent Auto 0.5 % (0.2-1.2); Eosinophils Absolute Auto 0.1 K/mm3 (0-0.3); Eosinophils Percent Auto 0.8 % (0-4.4); Hematocrit 42.9 % (37.0-47.0); Hemoglobin 13.6 g/dL (12.0-15.0); Immature Granulocyte Absolute 0.04 K/mm3 (0.00-0.031); Immature Granulocyte Percent A 0.3 % (0-0.5); Lymphocytes Percent Auto 18.3 % (18.3-44.2); Mean Corpuscular HGB Conc 31.7 g/dl (32-36); Mean Corpuscular Hemoglobin 28.6 pg (26-34); Mean Corpuscular Volume 90.1 fl (80-100); Mean Platelet Volume 10.8 fl (7.4-10.4); Monocytes Absolute Auto 0.8 K/mm3 (0.1-0.6); Monocytes Percent Auto 6.7 % (2.6-8.5); Neutrophils Absolute Auto 9.2 K/mm3 (1.3-6.7); Neutrophils Percent Auto 73.4 % (45.5-73.1); Platelet Count Result 271 k/mm3 (150-375); Red Blood Count 4.76 M/mm3 (4.2-5.4); Red Cell Distribution Width 15.2 % (11.5-14.5); White Blood Count 12.6 K/mm3 (4.5-10.0)
[2021-06-30 19:58] LABS: INR 0.9; Prothrombin Time 11.7 Seconds (11.1-14.7)
[2021-06-30 19:59] LABS: Partial Thromboplastin Time 24.4 SECONDS (22.3-36.8)
--- NOTE | 2021-06-30 20:17 | ED.WEAKNESS ---
HPI - Weakness General Chief complaint: Weakness Stated complaint: bilat leg weakness, concerned for TIA Time Seen by Provider: 06/30/21 19:26 Source: patient, RN notes reviewed and old records reviewed Mode of arrival: ambulatory Limitations: no limitations History of Present Illness HPI Narrative: This is 75 year old female of DM, hypertension, hypothyroidism, polymyalgia rheumatic who presents for evaluation of weakness. Patient reports she has been dealing with generalize weakness and difficulty walking since November 2020. She states she woke up from her nap today feeling increased weakness. She was able to get out of bed with her 's assistance. She also needs assistance with walking on day to day basis. She denies numbness, tingling, headache, dizziness, dysuria, incontinence or retention. She denies chest pain or shortness of breath. She reports chronic back pain. Related Data Home Medications Medication Instructions Recorded Confirmed aspirin 81 mg tablet,delayed 81 mg PO DAILY 03/09/19 06/14/21 release ondansetron 4 mg disintegrating 4 mg PO Q8H 03/09/19 06/14/21 tablet calcium 500 mg tablet 500 mg PO DAILY 08/17/20 06/14/21 omega-3 fatty acids 1,000 mg 1,000 mg PO Q12H 08/17/20 06/14/21 capsule metoprolol succinate 50 mg PO HS 09/12/20 06/14/21 montelukast [Singulair] 10 mg PO HS 09/12/20 06/14/21 rosuvastatin 40 mg PO HS 09/12/20 06/14/21 cholecalciferol (vitamin D3) 25 mcg PO DAILY 10/25/20 06/14/21 [Vitamin D3] cyanocobalamin (vitamin B-12) 1,000 mcg PO DAILY 10/25/20 06/14/21 [Vitamin B-12] empagliflozin 25 mg-linagliptin 5 1 tablet PO DAILY 11/15/20 06/14/21 mg tablet folic acid 1 mg tablet 1 mg PO DAILY 11/15/20 06/14/21 Allergies Allergy/AdvReac Type Severity Reaction Status Date / Time Iodinated Contrast Media Allergy Mild Unknown Verified 06/14/21 15:21 codeine Allergy Unknown Unknown Verified 06/14/21 15:21 iodine Allergy Unknown Unknown Verified 06/14/21 15:21 morphine Allergy Unknown Unknown Verified 06/14/21 15:21 Review of Systems Review of Systems: All systems reviewed & are unremarkable except as noted in HPI and below PMFSH Past Medical History Medical History Abnormal EKG Abnormal finding of blood chemistry Abnormal mammogram Abnormal screening mammogram Anxiety with depression ASHD (arteriosclerotic heart disease) Back pain BMI 32.0-32.9,adult BMI 34.0-34.9,adult BMI 34.0-34.9,adult BMI 35.0-35.9,adult Bruit Cardiac enzymes elevated Cervicalgia Chronic pain CKD (chronic kidney disease) Cough Dizziness DJD (degenerative joint disease) DM type 2 (diabetes mellitus, type 2) PERKINS (dyspnea on exertion) Elevated homocysteine Elevated LFTs Encounter for routine adult health examination without abnormal findings Familial tremor FHx: breast cancer Follow up Hearing loss Hoarseness of voice Homans sign present Hx of colonic polyps Hyperlipidemia Hypothyroidism Hypothyroidism (acquired) LBBB (left bundle branch block) Left leg swelling Mastodynia of right breast Medicare annual wellness visit, subsequent Mid back pain Myalgia Occult blood positive stool On retirement drug therapy Orthostatic hypotension Peripheral edema PMR (polymyalgia rheumatica) Right flank pain Vitamin D deficiency (~03/09/19) Surgical History Surgical History H/O breast biopsy H/O colonoscopy with polypectomy H/O heart artery stent H/O thyroidectomy Partial Hx of cholecystectomy Family History Family History Grandparent Diabetes mellitus Mother Family history of malignant neoplasm of ovary Hypertension Father Patient's father is Cerebrovascular accident Malignant neoplasm of prostate Other FHx: breast cancer Family history of arthritis Family history of cardiovascular disease
[2021-06-30 20:29] LABS: Alanine Aminotransferase 54 U/L (4-35); Alkaline Phosphatase 109 U/L (38-126); Anion Gap 7 mmol/L (8-16); Aspartate Amino Transferase 36 U/L (14-36); Bilirubin,Total 1.3 mg/dL (0.2-1.3); Blood Urea Nitrogen 30 mg/dL (7-17); Calcium 9.8 mg/dL (8.4-10.2); Carbon Dioxide 29 mmol/L (22-30); Chloride 103 mmol/L (98-107); Estimated CRCL calculation 44 ml/min; Estimated Glomerular Filt Rate 44; Glucose 206 mg/dL (65-110); Magnesium 2.2 mg/dL (1.6-2.3); Potassium 3.4 mmol/L (3.4-5.0); Sodium 139 mmol/L (137-145)
[2021-06-30 20:40] LABS: Troponin I < 0.012 ng/mL (0.000-0.034)
[2021-06-30 20:43] LABS: Add Urine Microscopic? YES; Appearance Urine Clear (Clear); Bilirubin Urine Negative (Negative); Blood Urine Negative (Negative); Color Urine Yellow (Yellow); Glucose Urine UA 3+ mg/dL (Negative); Ketones Urine Negative (Negative); Leukocyte Esterase Ur Trace LEU/UL (Negative); Nitrate Urine Negative (Negative); Protein Urine Negative (Negative); Specific Grav Ur 1.029 (1.001-1.035); Squamous Epithelial Cell Urine Rare /hpf (Few); Urobilinogen Urine Negative mg/dL (<2.0)
--- NOTE | 2021-06-30 21:38 | PC.NURSE ---
Pt requesting to leave PETRA states she has talked with her PMD and he will take care of her. Pt upset she is not in a private room and can hear everything that is going on in the other patients area. PT upset she is not getting her care in a timely manner. RN informed pt of risk of leaving such as worsening symptoms, fall, and . Pt states she has spoke with her doctor she will see him tomorrow. Rn informed pt that medications were ordered if she would like those before she left I could get them she states I will just get them from [facility] .
[2021-06-30 21:50] LABS: Free T4 Free Thyroxine Reflex 1.42 ng/dL (0.78-2.19)
[2021-06-30 22:49] LABS: Total Triiodothyronine (T3) 0.74 NG/ML (0.97-1.69)
== END 2021-06-30 21:36 | disposition left against medical advice (07) ==
PROVIDERS: Emergency Provider General Practice; PCP Internal Medicine
DX: R53.1 Weakness (principal); R82.81 Pyuria; I10 Essential (primary) hypertension; M35.3 Polymyalgia rheumatica; I25.10 Atherosclerotic heart disease of native coronary artery without angina pectoris; N18.9 Chronic kidney disease, unspecified; E11.22 Type 2 diabetes mellitus with diabetic chronic kidney disease; E78.5 Hyperlipidemia, unspecified; E55.9 Vitamin D deficiency, unspecified; E89.0 Postprocedural hypothyroidism; Z86.010 Personal history of colon polyps; Z95.5 Presence of coronary angioplasty implant and graft; Z79.82 Long term (current) use of aspirin; Z79.84 Long term (current) use of oral hypoglycemic drugs; Z87.891 Personal history of nicotine dependence; I44.7 Left bundle-branch block, unspecified
CPT/HCPCS: 36415; 71046; 80053; 81001; 83735; 84439; 84443; 84480; 84484; 85025; 85610; 85730; 87086; 87088; 93005; 99284

== ENCOUNTER 2021-07-03 15:14 | Outpatient (CLI) | payer MEDICARE, SELFPAY ==
[2021-07-03 16:38] LABS: Basophils Absolute Auto 0.1 K/mm3 (0.0-0.1); Basophils Percent Auto 0.8 % (0.2-1.2); Eosinophils Absolute Auto 0.2 K/mm3 (0-0.3); Eosinophils Percent Auto 1.9 % (0-4.4); Hematocrit 41.6 % (37.0-47.0); Hemoglobin 13.5 g/dL (12.0-15.0); Immature Granulocyte Absolute 0.05 K/mm3 (0.00-0.031); Immature Granulocyte Percent A 0.4 % (0-0.5); Lymphocytes Percent Auto 13.4 % (18.3-44.2); Mean Corpuscular HGB Conc 32.5 g/dl (32-36); Mean Corpuscular Hemoglobin 28.8 pg (26-34); Mean Corpuscular Volume 88.9 fl (80-100); Mean Platelet Volume 10.6 fl (7.4-10.4); Monocytes Absolute Auto 0.7 K/mm3 (0.1-0.6); Monocytes Percent Auto 6.4 % (2.6-8.5); Neutrophils Absolute Auto 8.6 K/mm3 (1.3-6.7); Neutrophils Percent Auto 77.1 % (45.5-73.1); Platelet Count Result 220 k/mm3 (150-375); Red Blood Count 4.68 M/mm3 (4.2-5.4); Red Cell Distribution Width 15.1 % (11.5-14.5); White Blood Count 11.2 K/mm3 (4.5-10.0)
[2021-07-03 17:29] LABS: Erythrocyte Sedimentation Rate 14 mm/hr (0-20)
[2021-07-03 17:34] LABS: Free T4 Free Thyroxine 1.64 ng/mL (0.78-2.19)
[2021-07-03 18:12] LABS: Anion Gap 8 mmol/L (8-16); Blood Urea Nitrogen 30 mg/dL (7-17); CRP < 0.5 mg/dL (<1.0); Calcium 9.5 mg/dL (8.4-10.2); Carbon Dioxide 27 mmol/L (22-30); Chloride 102 mmol/L (98-107); Estimated Glomerular Filt Rate 40; Glucose 222 mg/dL (65-110); Potassium 3.6 mmol/L (3.4-5.0); Sodium 137 mmol/L (137-145)
== END 2021-07-03 15:15 | disposition home or self-care (01) ==
LOC: ANHLAB 15:19
PROVIDERS: PCP Internal Medicine; Visit Provider Internal Medicine
DX: M35.3 Polymyalgia rheumatica (principal); Z79.899 Other long term (current) drug therapy; E03.9 Hypothyroidism, unspecified
CPT/HCPCS: 36415; 80048; 84439; 84443; 85025; 85652; 86140

== ENCOUNTER 2021-07-16 17:27 | Outpatient (CLI) | payer MEDICARE, SELFPAY ==
[2021-07-16 18:22] LABS: Add Urine Microscopic? YES; Appearance Urine Cloudy (Clear); Bilirubin Urine Negative (Negative); Color Urine Yellow (Yellow); Glucose Urine UA 3+ mg/dL (Negative); Ketones Urine Negative (Negative); Leukocyte Esterase Ur 2+ LEU/UL (Negative); Mucus Urine Rare /lpf; Nitrate Urine Negative (Negative); Protein Urine 1+ mg/dL (Negative); Specific Grav Ur 1.023 (1.001-1.035); Squamous Epithelial Cell Urine Moderate /hpf (Few); Urobilinogen Urine Negative mg/dL (<2.0); WBC Urine >75 /hpf
[2021-07-16 18:40] LABS: Blood Urine Negative (Negative)
== END 2021-07-16 17:28 | disposition home or self-care (01) ==
PROVIDERS: PCP Internal Medicine; Visit Provider Internal Medicine
DX: R30.0 Dysuria (principal)
CPT/HCPCS: 81001; 87086; 87088

== ENCOUNTER 2021-07-30 09:14 | Emergency (ER) | payer MEDICARE, SELFPAY ==
[2021-07-30] VITALS (15 sets, daily range): BP systolic 81–111; BP diastolic 42–56; PULSE 71–87; RESP 14–22; O2SAT 93–96
--- NOTE | 2021-07-30 09:29 | ECG_ITS ---
Measurements Intervals [place] Rate: 73 P: 80 DE: 186 QRS: 7 QRSD: 159 T: 86 QT: 405 QTc: 449 Interpretive Statements SINUS RHYTHM LEFT BUNDLE BRANCH BLOCK [120+ ms QRS DURATION, 80+ ms Q/S IN V1/V2, 85+ ms R IN I/aVL/V5/V6] ABNORMAL ECG COMPARED TO ECG 06/30/2021 19:30:06 NO SIGNIFICANT CHANGES Electronically Signed On 07-30-2021 12:23:15 CDT by Srinivasa Chang M.D.
--- NOTE | 2021-07-30 09:33 | ED.GENADULT ---
HPI - General Adult General Chief complaint: Weakness Stated complaint: SOB Time Seen by Provider: 07/30/21 09:18 Source: patient, family and RN notes reviewed History of Present Illness HPI narrative: 75-year-old female presented to the emergency department for evaluation of muscle pain and lower extremity weakness that has been worsening over the past few weeks. Patient does report a history of polymyalgia rheumatica. Patient does have follow-up with her primary care physician for this. Patient states that she is currently on a steroid taper. Patient states over the last few weeks that she has had worsening generalized weakness. Patient denies any associated chest pain or shortness of breath. Patient states she has had increased difficulty walking. Patient denies any specific falls or injuries. Related Data Home Medications Medication Instructions Recorded Confirmed aspirin 81 mg tablet,delayed 81 mg PO DAILY 03/09/19 07/05/21 release calcium 500 mg tablet 500 mg PO DAILY 08/17/20 07/05/21 omega-3 fatty acids 1,000 mg 1,000 mg PO Q12H 08/17/20 07/05/21 capsule cholecalciferol (vitamin D3) 25 mcg PO DAILY 10/25/20 07/05/21 [Vitamin D3] cyanocobalamin (vitamin B-12) 1,000 mcg PO DAILY 10/25/20 07/05/21 [Vitamin B-12] empagliflozin 25 mg-linagliptin 5 1 tablet PO DAILY 11/15/20 07/05/21 mg tablet folic acid 1 mg tablet 1 mg PO DAILY 11/15/20 07/05/21 Allergies Allergy/AdvReac Type Severity Reaction Status Date / Time Iodinated Contrast Media Allergy Mild Unknown Verified 07/30/21 09:27 codeine Allergy Unknown Unknown Verified 07/30/21 09:27 iodine Allergy Unknown Unknown Verified 07/30/21 09:27 morphine Allergy Unknown Unknown Verified 07/30/21 09:27 Review of Systems Review of Systems: CONSTITUTIONAL: Denies fever, chills, or sweats. EYES: Denies visual changes, redness, or discharge. ENT: Denies rhinorrhea, congestion, sore throat, or otalgia. CARDIOVASCULAR: Denies chest pain, palpitations, or edema. RESPIRATORY: Denies cough or dyspnea. GASTROINTESTINAL: Denies abdominal pain, nausea, vomiting, or diarrhea. GENITOURINARY: Denies dysuria or hematuria. SKIN: Denies rash or itching. MUSCULOSKELETAL: Denies back pain, joint pain, or myalgia. NEUROLOGIC: Generalized weakness with no focal deficit [facility] Past Medical History Medical History (Updated 07/30/21 @ 13:40 by Graham Stapleton MD) Abnormal EKG Abnormal finding of blood chemistry Abnormal mammogram Abnormal screening mammogram Anxiety with depression ASHD (arteriosclerotic heart disease) Back pain BMI 32.0-32.9,adult BMI 33.0-33.9,adult BMI 34.0-34.9,adult BMI 34.0-34.9,adult BMI 35.0-35.9,adult Bruit Cardiac enzymes elevated Cervicalgia Chronic pain CKD (chronic kidney disease) Cough Dizziness DJD (degenerative joint disease) DM type 2 (diabetes mellitus, type 2) PERKINS (dyspnea on exertion) Dysuria Elevated homocysteine Elevated LFTs Encounter for routine adult health examination without abnormal findings Familial tremor FHx: breast cancer Follow up Hearing loss Hoarseness of voice Homans sign present Hx of colonic polyps Hyperlipidemia Hypothyroidism Hypothyroidism (acquired) LBBB (left bundle branch block) Left leg swelling Mastodynia of right breast Medicare annual wellness visit, subsequent Mid back pain Myalgia Occult blood positive stool On retirement drug therapy Orthostatic hypotension Peripheral edema PMR (polymyalgia rheumatica) Right flank pain UTI (urinary tract infection) Vitamin D deficiency (~03/09/19) Surgical History Surgical History H/O breast biopsy H/O colonoscopy with polypectomy H/O heart artery stent H/O thyroidectomy Partial Hx of cholecystectomy Family History Family History Grandparent Diabetes mellitus Mother Family history of malignant neoplasm of ovary Hypertension Fa
[2021-07-30] MEDS: SODIUM CHLORIDE 0.9% IV 1,000 ML 999 ML IV CONT (09:48)
[2021-07-30 09:55] LABS: Basophils Absolute Auto 0.1 K/mm3 (0.0-0.1); Basophils Percent Auto 0.7 % (0.2-1.2); Eosinophils Absolute Auto 0.2 K/mm3 (0-0.3); Hematocrit 42.4 % (37.0-47.0); Hemoglobin 13.6 g/dL (12.0-15.0); Immature Granulocyte Absolute 0.09 K/mm3 (0.00-0.031); Immature Granulocyte Percent A 0.6 % (0-0.5); Lymphocytes Absolute Auto 2.41 K/mm3 (0.9-3.2); Lymphocytes Percent Auto 15.9 % (18.3-44.2); Mean Corpuscular HGB Conc 32.1 g/dl (32-36); Mean Corpuscular Hemoglobin 28.8 pg (26-34); Mean Corpuscular Volume 89.8 fl (80-100); Mean Platelet Volume 10.6 fl (7.4-10.4); Monocytes Absolute Auto 1.2 K/mm3 (0.1-0.6); Monocytes Percent Auto 8.2 % (2.6-8.5); Neutrophils Absolute Auto 11.1 K/mm3 (1.3-6.7); Neutrophils Percent Auto 73.6 % (45.5-73.1); Platelet Count Result 263 k/mm3 (150-375); Red Blood Count 4.72 M/mm3 (4.2-5.4); White Blood Count 15.1 K/mm3 (4.5-10.0)
[2021-07-30 10:26] LABS: Alanine Aminotransferase 37 U/L (4-35); Albumin Level 4.1 g/dL (3.5-5.1); Alkaline Phosphatase 75 U/L (38-126); Anion Gap 9 mmol/L (8-16); Aspartate Amino Transferase 31 U/L (14-36); Bilirubin,Total 2.2 mg/dL (0.2-1.3); Blood Urea Nitrogen 37 mg/dL (7-17); Calcium 10.2 mg/dL (8.4-10.2); Carbon Dioxide 26 mmol/L (22-30); Chloride 102 mmol/L (98-107); Creatine Kinase 47 U/L (30-135); Estimated CRCL calculation 30 ml/min; Estimated Glomerular Filt Rate 27; Glucose 61 mg/dL (65-110); Potassium 3.3 mmol/L (3.4-5.0); Sodium 137 mmol/L (137-145)
[2021-07-30 10:31] LABS: Add Urine Microscopic? YES; Appearance Urine Clear (Clear); Bilirubin Urine Negative (Negative); Blood Urine Negative (Negative); Budding Yeast Urine Present /hpf; Color Urine Amber (Yellow); Glucose Urine UA Negative (Negative); Ketones Urine Trace mg/dL (Negative); Leukocyte Esterase Ur Negative LEU/UL (Negative); Mucus Urine Rare /lpf; Nitrate Urine Positive (Negative); Protein Urine 1+ mg/dL (Negative); Specific Grav Ur 1.016 (1.001-1.035); Squamous Epithelial Cell Urine Rare /hpf (Few)
[2021-07-30 10:37] LABS: Lactic Acid Reflex 1.8 mmol/L (0.7-2.1)
[2021-07-30] MEDS: SODIUM CHLORIDE 0.9% IV 500 ML 999 ML IV CONT (10:53)
--- NOTE | 2021-07-30 11:46 | PC.NURSE ---
patient used the restroom, once in the restroom she reports that she felt like she was going to pass out and seen black spots . assisted patient to wheelchair with assist x2 and cane. patient refused to get back into bed. wheelchair placed and patient hooked back up to monitor. upon re-enter to room approx 5 mins later, patient's was trying to assist patient to bed. strongly advised them to call for assistance and not to get oob without help. Dr. Stapleton aware of patient's complaints
[2021-07-30] MEDS: NITROFURANTOIN MONOHYD MACROCR 100 MG CAP PO (12:16)
== END 2021-07-30 13:59 | disposition home or self-care (01) ==
PROVIDERS: Emergency Provider Emergency Medicine; PCP Internal Medicine
DX: N39.0 Urinary tract infection, site not specified (principal); R53.1 Weakness; N18.9 Chronic kidney disease, unspecified; E11.22 Type 2 diabetes mellitus with diabetic chronic kidney disease; M35.3 Polymyalgia rheumatica; E78.5 Hyperlipidemia, unspecified; E89.0 Postprocedural hypothyroidism; E55.9 Vitamin D deficiency, unspecified; Z95.5 Presence of coronary angioplasty implant and graft; Z87.891 Personal history of nicotine dependence; Z79.82 Long term (current) use of aspirin; Z79.84 Long term (current) use of oral hypoglycemic drugs
CPT/HCPCS: 36415; 51701; 80053; 81001; 82550; 83605; 85025; 87086; 93005; 96361; 96365; 99284; A9270; J0696; J7030; J7040

== ENCOUNTER 2021-08-03 12:34 | Inpatient (IN) | payer MEDICARE, SELFPAY ==
[2021-08-03] VITALS (10 sets, daily range): BP systolic 106–138; BP diastolic 52–78; PULSE 58–107; RESP 16–26; TEMP 36.3–36.8; O2SAT 96–100; BMI 34.5
--- NOTE | 2021-08-03 14:52 | ED.GENADULT ---
HPI - General Adult General Chief complaint: Unspecified Stated complaint: weakness, here twice this week for same thing Time Seen by Provider: 08/03/21 14:39 Source: patient and family Mode of arrival: ambulatory Limitations: no limitations History of Present Illness HPI narrative: Patient is 75 years old white female presented to the ED with the chief complaint of general weakness for the last 4 to 5 days. Patient unable to manage to get out of bed and do any activities because of the weakness. Patient denies any fever, chills, nausea, vomiting, diarrhea, constipation, urinary symptoms, chest pain, shortness of breath, abdominal pain, headache. History of polymyalgia rheumatica x3 months ago, started on high-dose of prednisone currently down to 7.5 mg once a day. History of diabetes, hypertension, hyperlipidemia, hypothyroidism, coronary stents. Patient also had history of depression denies any new stress in her life lately. Patient reports having mild diarrhea for 2 days, 2 days ago. Related Data Home Medications Medication Instructions Recorded Confirmed aspirin 81 mg tablet,delayed 81 mg PO DAILY 03/09/19 07/05/21 release calcium 500 mg tablet 500 mg PO DAILY 08/17/20 07/05/21 omega-3 fatty acids 1,000 mg 1,000 mg PO Q12H 08/17/20 07/05/21 capsule cholecalciferol (vitamin D3) 25 mcg PO DAILY 10/25/20 07/05/21 [Vitamin D3] cyanocobalamin (vitamin B-12) 1,000 mcg PO DAILY 10/25/20 07/05/21 [Vitamin B-12] empagliflozin 25 mg-linagliptin 5 1 tablet PO DAILY 11/15/20 07/05/21 mg tablet folic acid 1 mg tablet 1 mg PO DAILY 11/15/20 07/05/21 Allergies Allergy/AdvReac Type Severity Reaction Status Date / Time Iodinated Contrast Media Allergy Mild Unknown Verified 08/03/21 14:29 codeine Allergy Unknown Unknown Verified 08/03/21 14:29 iodine Allergy Unknown Unknown Verified 08/03/21 14:29 morphine Allergy Unknown Unknown Verified 08/03/21 14:29 Review of Systems Review of Systems: CONSTITUTIONAL: Denies fever, chills, or sweats. EYES: Denies visual changes, redness, or discharge. ENT: Denies rhinorrhea, congestion, sore throat, or otalgia. CARDIOVASCULAR: Denies chest pain, palpitations, or edema. RESPIRATORY: Denies cough or dyspnea. GASTROINTESTINAL: Denies abdominal pain, nausea, vomiting, or diarrhea. GENITOURINARY: Denies dysuria or hematuria. SKIN: Denies rash or itching. MUSCULOSKELETAL: Denies back pain, joint pain, or myalgia. NEUROLOGIC: Denies headache, numbness, or weakness. PSYCHIATRIC: Denies anxiety or depression. [facility] Past Medical History Medical History Abnormal EKG Abnormal finding of blood chemistry Abnormal mammogram Abnormal screening mammogram Anxiety with depression ASHD (arteriosclerotic heart disease) Back pain BMI 32.0-32.9,adult BMI 33.0-33.9,adult BMI 34.0-34.9,adult BMI 34.0-34.9,adult BMI 35.0-35.9,adult Bruit Cardiac enzymes elevated Cervicalgia Chronic pain CKD (chronic kidney disease) Cough Dizziness DJD (degenerative joint disease) DM type 2 (diabetes mellitus, type 2) PERKINS (dyspnea on exertion) Dysuria Elevated homocysteine Elevated LFTs Encounter for routine adult health examination without abnormal findings Familial tremor FHx: breast cancer Follow up Hearing loss Hoarseness of voice Homans sign present Hx of colonic polyps Hyperlipidemia Hypothyroidism Hypothyroidism (acquired) LBBB (left bundle branch block) Left leg swelling Mastodynia of right breast Medicare annual wellness visit, subsequent Mid back pain Myalgia Occult blood positive stool 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
[2021-08-03 15:57] LABS: Basophils Absolute Auto 0.1 K/mm3 (0.0-0.1); Basophils Percent Auto 0.6 % (0.2-1.2); Eosinophils Absolute Auto 0.2 K/mm3 (0-0.3); Eosinophils Percent Auto 1.4 % (0-4.4); Hematocrit 37.7 % (37.0-47.0); Hemoglobin 12.4 g/dL (12.0-15.0); Immature Granulocyte Absolute 0.05 K/mm3 (0.00-0.031); Immature Granulocyte Percent A 0.4 % (0-0.5); Lymphocytes Absolute Auto 1.71 K/mm3 (0.9-3.2); Lymphocytes Percent Auto 14.8 % (18.3-44.2); Mean Corpuscular HGB Conc 32.9 g/dl (32-36); Mean Corpuscular Hemoglobin 28.9 pg (26-34); Mean Corpuscular Volume 87.9 fl (80-100); Mean Platelet Volume 9.7 fl (7.4-10.4); Monocytes Percent Auto 8.4 % (2.6-8.5); Neutrophils Absolute Auto 8.6 K/mm3 (1.3-6.7); Neutrophils Percent Auto 74.4 % (45.5-73.1); Platelet Count Result 216 k/mm3 (150-375); Red Blood Count 4.29 M/mm3 (4.2-5.4); Red Cell Distribution Width 14.5 % (11.5-14.5); White Blood Count 11.6 K/mm3 (4.5-10.0)
[2021-08-03 15:58] LABS: Add Urine Microscopic? YES; Appearance Urine Clear (Clear); Bilirubin Urine Negative (Negative); Blood Urine 1+ (Negative); Budding Yeast Urine Present /hpf; Color Urine Amber (Yellow); Glucose Urine UA Negative (Negative); Ketones Urine Negative (Negative); Leukocyte Esterase Ur Negative LEU/UL (Negative); Mucus Urine Rare /lpf; Nitrate Urine Positive (Negative); Protein Urine 1+ mg/dL (Negative); RBC Urine 0-2 /hpf (0-2); Specific Grav Ur 1.013 (1.001-1.035); Squamous Epithelial Cell Urine Rare /hpf (Few); WBC Urine 16-20 /hpf
[2021-08-03 16:13] LABS: Alanine Aminotransferase 33 U/L (4-35); Albumin Level 3.8 g/dL (3.5-5.1); Alkaline Phosphatase 86 U/L (38-126); Anion Gap 5 mmol/L (8-16); Aspartate Amino Transferase 31 U/L (14-36); Bilirubin,Total 1.9 mg/dL (0.2-1.3); Blood Urea Nitrogen 23 mg/dL (7-17); Calcium 9.7 mg/dL (8.4-10.2); Carbon Dioxide 33 mmol/L (22-30); Chloride 100 mmol/L (98-107); Creatine Kinase 58 U/L (30-135); Estimated CRCL calculation 33 ml/min; Estimated Glomerular Filt Rate 31; Glucose 93 mg/dL (65-110); Potassium 2.7 mmol/L (3.4-5.0); Sodium 138 mmol/L (137-145)
[2021-08-03 16:34] LABS: Erythrocyte Sedimentation Rate 18 mm/hr (0-20)
[2021-08-03 16:46] LABS: Thyroid Stimulating Hormone 0.369 uIU/mL (0.465-4.680)
[2021-08-03] MEDS: POTASSIUM CHLORIDE 20 MEQ TABLET 40 MEQ PO (16:49)
[2021-08-03] MEDS: SODIUM CHLORIDE 0.9% IV 1,000 ML 125 ML IV CONT (17:06)
--- NOTE | 2021-08-03 18:22 | PM.IMHP ---
H&P: HPI History of Present Illness Date/Time: 08/03/21 18:22 ED-HPI narrative: Patient is 75 years old white female presented to the ED with the chief complaint of general weakness for the last 4 to 5 days. Patient unable to manage to get out of bed and do any activities because of the weakness. Patient denies any fever, chills, nausea, vomiting, diarrhea, constipation, urinary symptoms, chest pain, shortness of breath, abdominal pain, headache. History of polymyalgia rheumatica x3 months ago, started on high-dose of prednisone currently down to 7.5 mg once a day. History of diabetes, hypertension, hyperlipidemia, hypothyroidism, coronary stents. Patient also had history of depression denies any new stress in her life lately. Patient reports having mild diarrhea for 2 days, 2 days ago. Interval history: patient complains of being fatigued and tired, weak had difficulty time standing and ambulating, patient newly diagnosed with polymyalgia rheumatica being treated with the high steroid, and also has history of diabetes will do the A1c, patient with history of recurrent UTI her urine is suspicious again is started the patient on ceftriaxone will follow-up on urine culture and sensitivity, patient also has hypokalemia patient had been complaining diarrhea most likely resulting in hypokalemia will supplement and monitor, patient TSH is low, will repeat and check for T3 and T4, will have a PT evaluate the patient. patient admitted observation status Chief Complaint: generalized weakness Review of Systems Review of Systems: All systems reviewed & are unremarkable except as noted in HPI and below PMFSH Past Medical History Medical History Abnormal EKG Abnormal finding of blood chemistry Abnormal mammogram Abnormal screening mammogram Anxiety with depression ASHD (arteriosclerotic heart disease) Back pain BMI 32.0-32.9,adult BMI 33.0-33.9,adult BMI 34.0-34.9,adult BMI 34.0-34.9,adult BMI 35.0-35.9,adult Bruit Cardiac enzymes elevated Cervicalgia Chronic pain CKD (chronic kidney disease) Cough Dizziness DJD (degenerative joint disease) DM type 2 (diabetes mellitus, type 2) PERKINS (dyspnea on exertion) Dysuria Elevated homocysteine Elevated LFTs Encounter for routine adult health examination without abnormal findings Familial tremor FHx: breast cancer Follow up Hearing loss Hoarseness of voice Denise sign present Hx of colonic polyps Hyperlipidemia Hypothyroidism Hypothyroidism (acquired) LBBB (left bundle branch block) Left leg swelling Mastodynia of right breast Medicare annual wellness visit, subsequent Mid back pain Myalgia Occult blood positive stool On care home drug therapy Orthostatic hypotension Peripheral edema PMR (polymyalgia rheumatica) Right flank pain UTI (urinary tract infection) Vitamin D deficiency (~03/09/19) Surgical History Surgical History H/O breast biopsy H/O colonoscopy with polypectomy H/O heart artery stent H/O thyroidectomy Partial Hx of cholecystectomy Family History Family History Grandparent Diabetes mellitus Mother Family history of malignant neoplasm of ovary Hypertension Father Patient's father is Cerebrovascular accident Malignant neoplasm of prostate Other FHx: breast cancer Family history of arthritis Family history of cardiovascular disease Social History Social History Social History: The patient is and her is the poa . She has 3 children. she quit smoking 25 years ago. She has tried marjuana in the past. 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 She denies any alcohol. She desires to be a full code. Smoking packs per day: 1 Smoking cigarettes per day: 20.0 Smoking status: Former smoker Alcohol intake: never Substance use:
--- NOTE | 2021-08-03 18:58 | ADMGEN ---
This patient, Allyson Tello, was admitted to [facility] Surg Room 323-01 at 1820. Patient/family oriented to hospital policies and general routines including ID bracelet, bed and alarms, visiting hours, pain management, procedures, bathroom and other care routines, personal items, smoking policy, room service/diet, and visiting hours. Information on how to activate the Rapid Response Team has been discussed. Patient/Family are encouraged to report perceived risks to care and to ask questions if they do not understand what they are told or what they should do.
[2021-08-04] VITALS (11 sets, daily range): BP systolic 104–137; BP diastolic 50–77; PULSE 75–95; RESP 18–20; TEMP 36.6–36.8; O2SAT 94–96
[2021-08-04] MEDS: SODIUM CHLORIDE 0.9% IV 1,000 ML 125 ML IV CONT ×2 (03:01→17:23)
[2021-08-04 06:53] LABS: Hematocrit 35.7 % (37.0-47.0); Hemoglobin 11.6 g/dL (12.0-15.0); Mean Corpuscular HGB Conc 32.5 g/dl (32-36); Mean Corpuscular Hemoglobin 29.1 pg (26-34); Mean Corpuscular Volume 89.5 fl (80-100); Mean Platelet Volume 10.2 fl (7.4-10.4); Platelet Count Result 204 k/mm3 (150-375); Red Blood Count 3.99 M/mm3 (4.2-5.4); Red Cell Distribution Width 14.6 % (11.5-14.5); White Blood Count 8.5 K/mm3 (4.5-10.0)
[2021-08-04 07:09] LABS: Anion Gap 4 mmol/L (8-16); Blood Urea Nitrogen 19 mg/dL (7-17); Calcium 8.9 mg/dL (8.4-10.2); Carbon Dioxide 30 mmol/L (22-30); Chloride 106 mmol/L (98-107); Estimated CRCL calculation 37 ml/min; Estimated Glomerular Filt Rate 37; Glucose 112 mg/dL (65-110); Magnesium 1.7 mg/dL (1.6-2.3); Potassium 2.9 mmol/L (3.4-5.0); Sodium 140 mmol/L (137-145)
[2021-08-04 07:35] LABS: Thyroid Stimulating Hormone Reflex 0.706 uIU/mL (0.465-4.68)
[2021-08-04] MEDS: POTASSIUM CHLORIDE INJ 40 MEQ in SODIUM CHLORIDE 0.9% IV 500 ML 130 MEQ IVPB (09:23)
[2021-08-04] MEDS: buPROPion HCL XL (24 HR) 150 MG TABCR 300 MG PO (09:23)
[2021-08-04] MEDS: POTASSIUM CHLORIDE 20 MEQ PACKET (FOR LIQUID) 40 MEQ PO ×2 (09:23→17:23)
[2021-08-04] MEDS: predniSONE 5 MG TABLET 25 MG BY MOUTH (09:23)
[2021-08-04] MEDS: GABAPENTIN 100 MG CAPSULE BY MOUTH ×3 (09:24→17:24)
[2021-08-04] MEDS: CYANOCOBALAMIN 1,000 MCG TABLET 1000 MCG PO (09:24)
[2021-08-04] MEDS: LOSARTAN POTASSIUM 50 MG TABLET PO (09:24)
[2021-08-04] MEDS: ESCITALOPRAM OXALATE 10 MG TABLET BY MOUTH (09:24)
[2021-08-04] MEDS: OMEGA 3 POLYUNSAT FATTY ACIDS 1 GM CAP PO ×2 (09:24→19:46)
[2021-08-04] MEDS: ASPIRIN 81 MG ENTERIC TABLET PO (09:24)
[2021-08-04] MEDS: CALCIUM CARBONATE (OSCAL) 500 MG TABLET PO (09:25)
[2021-08-04] MEDS: PANTOPRAZOLE 40 MG TABLET PO (09:25)
[2021-08-04] MEDS: hydroCHLOROthiazide 12.5 MG CAPSULE PO (09:25)
[2021-08-04] MEDS: GLIMEPIRIDE 2 MG TABLET PO (09:25)
[2021-08-04] MEDS: CHOLECALCIFEROL 1,000 UNITS TABLET 1000 UNITS PO (09:25)
[2021-08-04] MEDS: ROSUVASTATIN 10 MG TABLET 40 MG PO (09:25)
[2021-08-04] MEDS: FOLIC ACID 1 MG TABLET PO (09:25)
[2021-08-04] MEDS: SUCRALFATE 1 GM TABLET PO ×2 (09:25→17:24)
[2021-08-04] MEDS: TOLNAFTATE 1% POWDER 45 GM BTL 1 APPLIC TOPICAL ×2 (09:32→19:48)
[2021-08-04 10:19] LABS: Hemoglobin A1C 7.5 % (<5.7)
--- NOTE | 2021-08-04 10:32 | PCPTNOTE ---
Pt refused initial therapy evaluation this date. She states she does not want to get out of bed, she had a headache, and got no sleep last night. Will attempt at a later time.
--- NOTE | 2021-08-04 10:37 | PM.IMPN ---
Progress Note: A&P Assessment and Plan (1) Weakness: Code(s): R53.1 - Weakness Status: Acute Assessment and Plan: ED-[facility] narrative: Patient is 75 years old white female presented to the ED with the chief complaint of general weakness for the last 4 to 5 days. Patient unable to manage to get out of bed and do any activities because of the weakness. Patient denies any fever, chills, nausea, vomiting, diarrhea, constipation, urinary symptoms, chest pain, shortness of breath, abdominal pain, headache. History of polymyalgia rheumatica x3 months ago, started on high-dose of prednisone currently down to 7.5 mg once a day. History of diabetes, hypertension, hyperlipidemia, hypothyroidism, coronary stents. Patient also had history of depression denies any new stress in her life lately. Patient reports having mild diarrhea for 2 days, 2 days ago. Interval history: patient complains of being fatigued and tired, weak had difficulty time standing and ambulating, patient newly diagnosed with polymyalgia rheumatica being treated with the high steroid, and also has history of diabetes will do the A1c, patient with history of recurrent UTI her urine is suspicious again is started the patient on ceftriaxone will follow-up on urine culture and sensitivity, patient also has hypokalemia patient had been complaining diarrhea most likely resulting in hypokalemia will supplement and monitor, patient TSH is low, will repeat and check for T3 and T4, will have a PT evaluate the patient. 08/04/2021 Interval history: patient continue to complains of being fatigued and tired, weak had difficulty time standing and ambulating, patient newly diagnosed with polymyalgia rheumatica being treated with the high steroid, and also has history of diabetes her A1c is 7.5, patient with history of recurrent UTI her urine is suspicious again is started the patient on ceftriaxone will follow-up on urine culture and sensitivity, patient also has hypokalemia patient had been complaining diarrhea most likely resulting in hypokalemia will supplement and monitor, on 08/03, patient TSH was low, will repeat TSH today showed low normal, will have a PT evaluate the patient. (2) Acute hypokalemia: Code(s): E87.6 - Hypokalemia Status: Acute Assessment and Plan: most likely secondary to diarrhea will monitor and supplement (3) Urinary tract infection: Qualifiers: Hematuria presence: without hematuria Urinary tract infection type: site unspecified Qualified Code(s): N39.0 - Urinary tract infection, site not specified Code(s): N39.0 - Urinary tract infection, site not specified Status: Acute Assessment and Plan: patient with history of recurrent UTI and currently suspicious, started the patient on ceftriaxone will follow-up on urine culture and further recommendation to follow (4) DM type 2 (diabetes mellitus, type 2): Qualifiers: Diabetes mellitus exterminator termite insulin use: without exterminator termite use Diabetes mellitus complication status: with other specified complication Qualified Code(s): E11.69 - Type 2 diabetes mellitus with other specified complication Code(s): E11.9 - Type 2 diabetes mellitus without complications Status: Chronic Assessment and Plan: will continue home regimen and monitor (5) Low TSH level: Code(s): R79.89 - Other specified abnormal findings of blood chemistry Status: Acute Assessment and Plan: it seemed patient has no history of thyroid issues will repeat the TSH with T3-T4 Subjective Date/time seen: 08/04/21 10:37 ED-HPI narrative: Patient is 75 years old white female presented to the ED with the chief complaint of general weakness for the last 4 to 5 days. Patient unable to manage to get out of bed and do any activities because of the weakness. Patient denies any fever, chills, nausea, vomiting, diarrhea, constipation, urinary symptoms, chest pain, shortn
[2021-08-04 11:22] LABS: Glucose Point of Care 194 mg/dl (65-105)
[2021-08-04 16:29] LABS: Glucose Point of Care 342 mg/dl (65-105)
[2021-08-04] MEDS: cefTRIAXone 2 GM in SODIUM CHLORIDE 0.9% IV 100 ML 200 ML IVPB (17:22)
[2021-08-04] MEDS: predniSONE 5 MG TABLET 10 MG BY MOUTH (17:25)
[2021-08-04] MEDS: INSULIN ASPART (*BKC) 100 UNITS/ML SUB-Q (17:25)
[2021-08-04] MEDS: predniSONE 2.5 MG TABLET PO (17:26)
[2021-08-04] MEDS: traMADol HCL (*CRX) 50 MG TABLET PO (19:45)
[2021-08-04] MEDS: MONTELUKAST SODIUM 10 MG TABLET PO (19:47)
[2021-08-04] MEDS: METOPROLOL SUCCINATE EXT REL 50 MG TABCR PO (19:47)
[2021-08-04 20:28] LABS: Glucose Point of Care 312 mg/dl (65-105)
[2021-08-05] VITALS (9 sets, daily range): BP systolic 120–134; BP diastolic 49–85; PULSE 67–89; RESP 20; TEMP 36.2–36.6; O2SAT 94–97
[2021-08-05] MEDS: SODIUM CHLORIDE 0.9% IV 1,000 ML 125 ML IV CONT (02:12)
[2021-08-05] MEDS: traMADol HCL (*CRX) 50 MG TABLET PO ×2 (02:13→18:01)
[2021-08-05] MEDS: LEVOTHYROXINE SODIUM 150 MCG TABLET PO (05:31)
[2021-08-05] MEDS: SUCRALFATE 1 GM TABLET PO ×2 (05:31→17:26)
[2021-08-05 06:39] LABS: Hematocrit 35.4 % (37.0-47.0); Hemoglobin 11.3 g/dL (12.0-15.0); Mean Corpuscular HGB Conc 31.9 g/dl (32-36); Mean Platelet Volume 9.8 fl (7.4-10.4); Platelet Count Result 218 k/mm3 (150-375); Red Blood Count 3.89 M/mm3 (4.2-5.4); Red Cell Distribution Width 14.8 % (11.5-14.5); White Blood Count 13.4 K/mm3 (4.5-10.0)
[2021-08-05 07:16] LABS: Anion Gap 3 mmol/L (8-16); Blood Urea Nitrogen 15 mg/dL (7-17); Calcium 9.2 mg/dL (8.4-10.2); Carbon Dioxide 26 mmol/L (22-30); Chloride 110 mmol/L (98-107); Estimated CRCL calculation 43 ml/min; Estimated Glomerular Filt Rate 44; Glucose 150 mg/dL (65-110); Magnesium 1.8 mg/dL (1.6-2.3); Sodium 139 mmol/L (137-145)
[2021-08-05] MEDS: buPROPion HCL XL (24 HR) 150 MG TABCR 300 MG PO (08:06)
[2021-08-05] MEDS: predniSONE 5 MG TABLET 25 MG BY MOUTH (08:06)
[2021-08-05] MEDS: GABAPENTIN 100 MG CAPSULE BY MOUTH ×3 (08:06→17:25)
[2021-08-05] MEDS: ROSUVASTATIN 10 MG TABLET 40 MG PO (08:06)
[2021-08-05] MEDS: hydroCHLOROthiazide 12.5 MG CAPSULE PO (08:07)
[2021-08-05] MEDS: OMEGA 3 POLYUNSAT FATTY ACIDS 1 GM CAP PO ×2 (08:07→20:37)
[2021-08-05] MEDS: ESCITALOPRAM OXALATE 10 MG TABLET BY MOUTH (08:07)
[2021-08-05] MEDS: LOSARTAN POTASSIUM 50 MG TABLET PO (08:07)
[2021-08-05] MEDS: ASPIRIN 81 MG ENTERIC TABLET PO (08:07)
[2021-08-05] MEDS: PANTOPRAZOLE 40 MG TABLET PO (08:07)
[2021-08-05] MEDS: GLIMEPIRIDE 2 MG TABLET PO (08:07)
[2021-08-05] MEDS: CHOLECALCIFEROL 1,000 UNITS TABLET 1000 UNITS PO (08:07)
[2021-08-05] MEDS: CYANOCOBALAMIN 1,000 MCG TABLET 1000 MCG PO (08:07)
[2021-08-05] MEDS: CALCIUM CARBONATE (OSCAL) 500 MG TABLET PO (08:07)
[2021-08-05] MEDS: FOLIC ACID 1 MG TABLET PO (08:07)
[2021-08-05 08:08] LABS: Glucose Point of Care 126 mg/dl (65-105)
[2021-08-05] MEDS: TOLNAFTATE 1% POWDER 45 GM BTL 1 APPLIC TOPICAL ×2 (08:08→20:38)
[2021-08-05 12:02] LABS: Glucose Point of Care 192 mg/dl (65-105)
--- NOTE | 2021-08-05 12:48 | PM.IMPN ---
Progress Note: A&P Assessment and Plan (1) Weakness: Code(s): R53.1 - Weakness Status: Acute Assessment and Plan: ED-HPI narrative: Patient is 75 years old white female presented to the ED with the chief complaint of general weakness for the last 4 to 5 days. Patient unable to manage to get out of bed and do any activities because of the weakness. Patient denies any fever, chills, nausea, vomiting, diarrhea, constipation, urinary symptoms, chest pain, shortness of breath, abdominal pain, headache. History of polymyalgia rheumatica x3 months ago, started on high-dose of prednisone currently down to 7.5 mg once a day. History of diabetes, hypertension, hyperlipidemia, hypothyroidism, coronary stents. Patient also had history of depression denies any new stress in her life lately. Patient reports having mild diarrhea for 2 days, 2 days ago. Interval history: patient complains of being fatigued and tired, weak had difficulty time standing and ambulating, patient newly diagnosed with polymyalgia rheumatica being treated with the high steroid, and also has history of diabetes will do the A1c, patient with history of recurrent UTI her urine is suspicious again is started the patient on ceftriaxone will follow-up on urine culture and sensitivity, patient also has hypokalemia patient had been complaining diarrhea most likely resulting in hypokalemia will supplement and monitor, patient TSH is low, will repeat and check for T3 and T4, will have a PT evaluate the patient. 08/04/2021 Interval history: patient continue to complains of being fatigued and tired, weak had difficulty time standing and ambulating, patient newly diagnosed with polymyalgia rheumatica being treated with the high steroid, and also has history of diabetes her A1c is 7.5, patient with history of recurrent UTI her urine is suspicious again is started the patient on ceftriaxone will follow-up on urine culture and sensitivity, patient also has hypokalemia patient had been complaining diarrhea most likely resulting in hypokalemia will supplement and monitor, on 08/03, patient TSH was low, will repeat TSH today showed low normal, will have a PT evaluate the patient. 08/05/2021 Interval history: patient continue to complains of being fatigued and tired, weak had difficulty time standing and ambulating, patient newly diagnosed with polymyalgia rheumatica being treated with the high steroid, and also has history of diabetes her A1c is 7.5, patient with history of recurrent UTI her urine is suspicious again was started the patient on ceftriaxone however urine culture there is no growth will stop the antibiotics, patient also has hypokalemia patient had been complaining diarrhea most likely resulting in hypokalemia will supplement and monitor, patient potassium is down close to normal, on 08/03, patient TSH was low, repeat TSH showed low normal, will have a PT evaluate the patient. patient will benefit going to acute rehab. (2) Acute hypokalemia: Code(s): E87.6 - Hypokalemia Status: Acute Assessment and Plan: most likely secondary to diarrhea will monitor and supplement (3) Urinary tract infection: Qualifiers: Hematuria presence: without hematuria Urinary tract infection type: site unspecified Qualified Code(s): N39.0 - Urinary tract infection, site not specified Code(s): N39.0 - Urinary tract infection, site not specified Status: Acute Assessment and Plan: patient with history of recurrent UTI and currently suspicious, started the patient on ceftriaxone will follow-up on urine culture and further recommendation to follow (4) DM type 2 (diabetes mellitus, type 2): Qualifiers: Diabetes mellitus bed bug exterminator insulin use: without bed bug exterminator use Diabetes mellitus complication status: with other specified complication Qualified Code(s): E11.69 - Type 2 diabetes mellitus with other specified complication Code(s
[2021-08-05 16:47] LABS: Glucose Point of Care 331 mg/dl (65-105)
[2021-08-05] MEDS: predniSONE 5 MG TABLET 10 MG BY MOUTH (17:25)
[2021-08-05] MEDS: INSULIN ASPART (*BKC) 100 UNITS/ML SUB-Q (17:26)
[2021-08-05] MEDS: predniSONE 2.5 MG TABLET PO (17:27)
[2021-08-05] MEDS: METOPROLOL SUCCINATE EXT REL 50 MG TABCR PO (20:37)
[2021-08-05] MEDS: MONTELUKAST SODIUM 10 MG TABLET PO (20:37)
[2021-08-05 21:04] LABS: Glucose Point of Care 194 mg/dl (65-105)
[2021-08-06] VITALS (7 sets, daily range): BP systolic 103–125; BP diastolic 62–78; PULSE 58–83; RESP 18–20; TEMP 36.1–36.9; O2SAT 91–94
[2021-08-06] MEDS: traMADol HCL (*CRX) 50 MG TABLET PO (02:50)
[2021-08-06] MEDS: LEVOTHYROXINE SODIUM 150 MCG TABLET PO (05:56)
[2021-08-06] MEDS: SUCRALFATE 1 GM TABLET PO (05:56)
[2021-08-06 06:10] LABS: Hematocrit 35.1 % (37.0-47.0); Hemoglobin 11.3 g/dL (12.0-15.0); Mean Corpuscular HGB Conc 32.2 g/dl (32-36); Mean Corpuscular Hemoglobin 28.9 pg (26-34); Mean Corpuscular Volume 89.8 fl (80-100); Mean Platelet Volume 10.4 fl (7.4-10.4); Platelet Count Result 221 k/mm3 (150-375); Red Blood Count 3.91 M/mm3 (4.2-5.4); Red Cell Distribution Width 14.7 % (11.5-14.5); White Blood Count 14.3 K/mm3 (4.5-10.0)
[2021-08-06 06:18] LABS: Anion Gap 4 mmol/L (8-16); Blood Urea Nitrogen 18 mg/dL (7-17); Carbon Dioxide 25 mmol/L (22-30); Chloride 108 mmol/L (98-107); Estimated CRCL calculation 43 ml/min; Estimated Glomerular Filt Rate 44; Glucose 168 mg/dL (65-110); Potassium 3.8 mmol/L (3.4-5.0); Sodium 137 mmol/L (137-145)
[2021-08-06] MEDS: FOLIC ACID 1 MG TABLET PO (09:39)
[2021-08-06] MEDS: ESCITALOPRAM OXALATE 10 MG TABLET BY MOUTH (09:39)
[2021-08-06] MEDS: ROSUVASTATIN 10 MG TABLET 40 MG PO (09:39)
[2021-08-06] MEDS: buPROPion HCL XL (24 HR) 150 MG TABCR 300 MG PO (09:39)
[2021-08-06] MEDS: PANTOPRAZOLE 40 MG TABLET PO (09:39)
[2021-08-06] MEDS: CHOLECALCIFEROL 1,000 UNITS TABLET 1000 UNITS PO (09:39)
[2021-08-06] MEDS: BACLOFEN 5 MG TABLET BY MOUTH (09:39)
[2021-08-06] MEDS: GLIMEPIRIDE 2 MG TABLET PO (09:39)
[2021-08-06] MEDS: predniSONE 5 MG TABLET 25 MG BY MOUTH (09:39)
[2021-08-06] MEDS: GABAPENTIN 100 MG CAPSULE BY MOUTH ×2 (09:39→13:27)
[2021-08-06] MEDS: CALCIUM CARBONATE (OSCAL) 500 MG TABLET PO (09:39)
[2021-08-06] MEDS: ASPIRIN 81 MG ENTERIC TABLET PO (09:40)
[2021-08-06] MEDS: TOLNAFTATE 1% POWDER 45 GM BTL 1 APPLIC TOPICAL (09:40)
[2021-08-06] MEDS: OMEGA 3 POLYUNSAT FATTY ACIDS 1 GM CAP PO (09:40)
[2021-08-06] MEDS: CYANOCOBALAMIN 1,000 MCG TABLET 1000 MCG PO (09:40)
[2021-08-06] MEDS: hydroCHLOROthiazide 12.5 MG CAPSULE PO (09:40)
[2021-08-06] MEDS: LOSARTAN POTASSIUM 50 MG TABLET PO (09:40)
--- NOTE | 2021-08-06 09:43 | PCRCNOTE ---
HOME O2 EVAL COMPLETED. PATIENT DOES NOT REQUIRE HOME OXYGEN AT THIS TIME. RN NOTIFIED.
[2021-08-06 12:17] LABS: Glucose Point of Care 170 mg/dl (65-105)
--- NOTE | 2021-08-06 13:15 | PM.DS ---
DS: Admitting Diagnosis Discharge Date 08/06/2021 Admitting Diagnosis generalized weakness DS: Discharge Diagnosis Discharge Diagnosis (1) Weakness: Code(s): R53.1 - Weakness Status: Deleted Assessment and Plan: ED-[facility] narrative: Patient is 75 years old white female presented to the ED with the chief complaint of general weakness for the last 4 to 5 days. Patient unable to manage to get out of bed and do any activities because of the weakness. Patient denies any fever, chills, nausea, vomiting, diarrhea, constipation, urinary symptoms, chest pain, shortness of breath, abdominal pain, headache. History of polymyalgia rheumatica x3 months ago, started on high-dose of prednisone currently down to 7.5 mg once a day. History of diabetes, hypertension, hyperlipidemia, hypothyroidism, coronary stents. Patient also had history of depression denies any new stress in her life lately. Patient reports having mild diarrhea for 2 days, 2 days ago. Interval history: patient complains of being fatigued and tired, weak had difficulty time standing and ambulating, patient newly diagnosed with polymyalgia rheumatica being treated with the high steroid, and also has history of diabetes will do the A1c, patient with history of recurrent UTI her urine is suspicious again is started the patient on ceftriaxone will follow-up on urine culture and sensitivity, patient also has hypokalemia patient had been complaining diarrhea most likely resulting in hypokalemia will supplement and monitor, patient TSH is low, will repeat and check for T3 and T4, will have a PT evaluate the patient. 08/04/2021 Interval history: patient continue to complains of being fatigued and tired, weak had difficulty time standing and ambulating, patient newly diagnosed with polymyalgia rheumatica being treated with the high steroid, and also has history of diabetes her A1c is 7.5, patient with history of recurrent UTI her urine is suspicious again is started the patient on ceftriaxone will follow-up on urine culture and sensitivity, patient also has hypokalemia patient had been complaining diarrhea most likely resulting in hypokalemia will supplement and monitor, on 08/03, patient TSH was low, will repeat TSH today showed low normal, will have a PT evaluate the patient. 08/05/2021 Interval history: patient continue to complains of being fatigued and tired, weak had difficulty time standing and ambulating, patient newly diagnosed with polymyalgia rheumatica being treated with the high steroid, and also has history of diabetes her A1c is 7.5, patient with history of recurrent UTI her urine is suspicious again was started the patient on ceftriaxone however urine culture there is no growth will stop the antibiotics, patient also has hypokalemia patient had been complaining diarrhea most likely resulting in hypokalemia will supplement and monitor, patient potassium is down close to normal, on 08/03, patient TSH was low, repeat TSH showed low normal, will have a PT evaluate the patient. patient will benefit going to acute rehab. (2) Acute hypokalemia: Code(s): E87.6 - Hypokalemia Status: Acute Assessment and Plan: most likely secondary to diarrhea will monitor and supplement (3) Urinary tract infection: Qualifiers: Hematuria presence: without hematuria Urinary tract infection type: site unspecified Qualified Code(s): N39.0 - Urinary tract infection, site not specified Code(s): N39.0 - Urinary tract infection, site not specified Status: Acute Assessment and Plan: patient with history of recurrent UTI and currently suspicious, started the patient on ceftriaxone will follow-up on urine culture and further recommendation to follow (4) DM type 2 (diabetes mellitus, type 2): Qualifiers: Diabetes mellitus usp insulin use: without intermediate frame tender use Diabetes mellitus complication status: with other specified complicat
--- NOTE | 2021-08-06 13:34 | PCPTNOTE ---
Patient declined PT stating she will be going home this afternoon and does not need therapy at this time.
== END 2021-08-06 14:55 | disposition home health service (06) | DRG 641 ==
LOC: ANHED 16:46 → ANH3MEDSUR 17:17
PROVIDERS: Admitting Provider Family Medicine; Emergency Provider Emergency Medicine; PCP Internal Medicine; Visit Provider Family Medicine
DX: E87.6 Hypokalemia (principal); R53.1 Weakness; R19.7 Diarrhea, unspecified; R79.89 Other specified abnormal findings of blood chemistry; M35.3 Polymyalgia rheumatica; E11.22 Type 2 diabetes mellitus with diabetic chronic kidney disease; N18.9 Chronic kidney disease, unspecified; E78.5 Hyperlipidemia, unspecified; E03.9 Hypothyroidism, unspecified; I25.10 Atherosclerotic heart disease of native coronary artery without angina pectoris; F41.8 Other specified anxiety disorders; Z79.82 Long term (current) use of aspirin; Z95.5 Presence of coronary angioplasty implant and graft; Z90.49 Acquired absence of other specified parts of digestive tract; Z87.891 Personal history of nicotine dependence; E66.9 Obesity, unspecified; Z68.34 Body mass index [BMI] 34.0-34.9, adult
CPT/HCPCS: 36415; 51701; 80048; 80053; 81001; 82550; 82948; 83036; 83735; 84443; 85025; 85027; 85652; 87086; 94618; 96361; 96366; 96375; 96376; 97116; 97161; 97530; 99285; A9270; G0378; J0131; J0696; J1815; J3480; J7030; J7040; J7512

== ENCOUNTER 2021-10-03 16:50 | Outpatient (CLI) | payer MEDICARE, SELFPAY ==
[2021-10-03 17:24] LABS: Alanine Aminotransferase 37 U/L (6-35); Albumin Level 4.1 g/dL (3.5-5.1); Alkaline Phosphatase 101 U/L (38-126); Anion Gap 6 mmol/L (8-16); Aspartate Amino Transferase 30 U/L (14-36); Bilirubin,Total 1.7 mg/dL (0.2-1.3); Blood Urea Nitrogen 22 mg/dL (7-17); CRP < 0.5 mg/dL (<1.0); Calcium 9.6 mg/dL (8.4-10.2); Carbon Dioxide 31 mmol/L (22-30); Chloride 101 mmol/L (98-107); Estimated Glomerular Filt Rate 48; Glucose 172 mg/dL (65-110); Potassium 4.6 mmol/L (3.4-5.0); Sodium 138 mmol/L (137-145)
[2021-10-03 17:52] LABS: Thyroid Stimulating Hormone 0.533 uIU/mL (0.465-4.680)
[2021-10-03 18:21] LABS: Erythrocyte Sedimentation Rate 16 mm/hr (0-20)
[2021-10-03 18:35] LABS: Free T4 Free Thyroxine 1.42 ng/mL (0.78-2.19)
[2021-10-03 21:15] LABS: Hemoglobin A1C 6.9 % (<5.7)
== END 2021-10-03 16:51 | disposition home or self-care (01) ==
PROVIDERS: PCP Internal Medicine; Visit Provider Internal Medicine
DX: M35.3 Polymyalgia rheumatica (principal); E11.59 Type 2 diabetes mellitus with other circulatory complications; I15.2 Hypertension secondary to endocrine disorders; E03.9 Hypothyroidism, unspecified; E11.69 Type 2 diabetes mellitus with other specified complication
CPT/HCPCS: 36415; 80053; 83036; 84439; 84443; 85652; 86140

== ENCOUNTER 2021-10-16 17:22 | Outpatient (CLI) | payer MEDICARE, SELFPAY ==
[2021-10-16 18:13] LABS: Basophils Absolute Auto 0.1 K/mm3 (0.0-0.1); Basophils Percent Auto 0.5 % (0.2-1.2); Eosinophils Percent Auto 0.2 % (0-4.4); Hematocrit 39.6 % (37.0-47.0); Hemoglobin 12.9 g/dL (12.0-15.0); Immature Granulocyte Absolute 0.06 K/mm3 (0.00-0.031); Immature Granulocyte Percent A 0.5 % (0-0.5); Lymphocytes Absolute Auto 1.31 K/mm3 (0.9-3.2); Lymphocytes Percent Auto 10.4 % (18.3-44.2); Mean Corpuscular HGB Conc 32.6 g/dl (32-36); Mean Corpuscular Hemoglobin 29.4 pg (26-34); Mean Corpuscular Volume 90.2 fl (80-100); Mean Platelet Volume 10.1 fl (7.4-10.4); Monocytes Absolute Auto 0.5 K/mm3 (0.1-0.6); Neutrophils Absolute Auto 10.7 K/mm3 (1.3-6.7); Neutrophils Percent Auto 84.4 % (45.5-73.1); Platelet Count Result 240 k/mm3 (150-375); Red Blood Count 4.39 M/mm3 (4.2-5.4); Red Cell Distribution Width 14.1 % (11.5-14.5); White Blood Count 12.6 K/mm3 (4.5-10.0)
[2021-10-16 18:22] LABS: Hemoglobin A1C 6.8 % (<5.7)
[2021-10-16 18:27] LABS: Alanine Aminotransferase 43 U/L (6-35); Albumin Level 3.8 g/dL (3.5-5.1); Alkaline Phosphatase 119 U/L (38-126); Anion Gap 4 mmol/L (8-16); Aspartate Amino Transferase 28 U/L (14-36); Bilirubin,Total 1.3 mg/dL (0.2-1.3); Blood Urea Nitrogen 19 mg/dL (7-17); CRP < 0.5 mg/dL (<1.0); Carbon Dioxide 29 mmol/L (22-30); Chloride 103 mmol/L (98-107); Cholesterol 172 mg/dL (0-200); Estimated Glomerular Filt Rate 54; Glucose 269 mg/dL (65-110); HDL Direct 81 mg/dL; Potassium 3.7 mmol/L (3.4-5.0); Sodium 136 mmol/L (137-145); Triglycerides 241 mg/dL (<150)
[2021-10-16 18:36] LABS: LDL Cholesterol Direct 49 mg/dL
[2021-10-16 18:54] LABS: Thyroid Stimulating Hormone 0.773 uIU/mL (0.465-4.680)
[2021-10-16 19:07] LABS: Free T4 Free Thyroxine 1.35 ng/mL (0.78-2.19)
[2021-10-16 19:45] LABS: Erythrocyte Sedimentation Rate 13 mm/hr (0-20)
== END 2021-10-16 17:23 | disposition home or self-care (01) ==
LOC: ANHLAB 17:30
PROVIDERS: PCP Internal Medicine; Visit Provider Internal Medicine
DX: M35.3 Polymyalgia rheumatica (principal); E03.9 Hypothyroidism, unspecified; E11.59 Type 2 diabetes mellitus with other circulatory complications; I15.2 Hypertension secondary to endocrine disorders; E11.69 Type 2 diabetes mellitus with other specified complication; E78.5 Hyperlipidemia, unspecified; R74.8 Abnormal levels of other serum enzymes
CPT/HCPCS: 36415; 80053; 80061; 83036; 84439; 84443; 85025; 85652; 86140

== ENCOUNTER 2021-10-26 00:36 | Day surgery (SDC) | payer MEDICARE, SELFPAY ==
[2021-09-18 13:56] VITALS: BMI 34.5
[2021-10-15 11:37] VITALS: BMI 34.5
[2021-10-26 11:18] VITALS: BP 92/76; PULSE 90; RESP 18; TEMP 36; O2SAT 95
--- NOTE | 2021-10-26 11:28 | PM.IMHP ---
H&P: HPI History of Present Illness Date/Time: 10/26/21 11:28 Chief Complaint: history of colon polyps. Narrative: This is a 75-year-old white female patient who presents for screening colonoscopy. Patient has a history of a colon polyps removed from the colon 2016. Her current weight appetite bowel movements are normal. In April 2021 was seen in the office consider rectal bleeding. It was advised to proceed with colonoscopy. She states she has had no additional bleeding since that time. She did has been treated for fibromyalgia and complains of diffuse body aches. Review of Systems Review of Systems: Review of systems noncontributory. [facility] Past Medical History Medical History (Updated 10/26/21 @ 11:[address] MD) Abnormal EKG Abnormal finding of blood chemistry Abnormal mammogram Abnormal screening mammogram Anxiety with depression ASHD (arteriosclerotic heart disease) ASHD (arteriosclerotic heart disease) Back pain BMI 34.0-34.9,adult Bruit Cardiac enzymes elevated Cervicalgia CHF (congestive heart failure) Chronic pain Chronic, continuous use of opioids CKD (chronic kidney disease) Cough Dizziness DJD (degenerative joint disease) DM type 2 (diabetes mellitus, type 2) PERKINS (dyspnea on exertion) Dysuria Elevated homocysteine Elevated LFTs Encounter for routine adult health examination without abnormal findings Familial tremor FHx: breast cancer Fibromyalgia Follow up Hearing loss Hoarseness of voice Homans 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 present Hx of colonic polyps Hyperlipidemia Hypertension Hypothyroidism Hypothyroidism (acquired) LBBB (left bundle branch block) Left leg swelling Mastodynia of right breast Medicare annual wellness visit, subsequent Mid back pain Myalgia Occult blood positive stool On termite inspector drug therapy Orthostatic hypotension Peripheral edema PMR (polymyalgia rheumatica) Right flank pain UTI (urinary tract infection) Vitamin D deficiency (~03/09/19) Surgical History Surgical History (Updated 10/25/21 @ 12:24 by Kishore Austin DO) H/O breast biopsy H/O colonoscopy with polypectomy H/O heart artery stent x2 H/O thyroidectomy Partial Hx of cholecystectomy Family History Family History Grandparent Diabetes mellitus Mother Family history of malignant neoplasm of ovary Hypertension Father Patient's father is Cerebrovascular accident Malignant neoplasm of prostate Other FHx: breast cancer Family history of arthritis Family history of cardiovascular disease Social History Social History Social History: The patient is and her is the poa . She has 3 children. she quit smoking 25 years ago. She has tried marjuana in the past. She is retired. She denies any alcohol. She desires to be a full code. She lives in a single-story home. She has a tub bench, straight cane, tall toilet, walk-in shower with curtain. Smoking packs per day: 1 Smoking cigarettes per day: 20.0 Smoking status: Former smoker Alcohol intake: never Substance use: current Substance use type: does not use Other substance usage details: occasionally takes gummies for pain Living arrangements: with family Gender identity (if verbalized by the patient): Female Spiritual care concerns: No Meds Home Medications and Allergies Home Medications Medication Instructions Recorded Confirmed Type aspirin 81 mg tablet,delayed 81 mg PO DAILY 03/09/19 10/26/21 History release (Adult Low Dose Aspirin) omega-3 fatty acids 1,000 mg 1,000 mg PO DAILY 08/17/20 10/26/21 History capsule (Fish Oil Concentrate) cyanocobalamin (vitamin B-12) 1,000 mcg PO DAILY 10/25/20 10/26/21 History 1,000 mcg tablet (Vitamin B-12) levothyroxine 150 mcg tablet 150 mcg PO DAILY #90 tabs 05/31/21 10/26/21 Rx montelukast 10 mg tablet 10 mg PO HS #90 ta
[2021-10-26] MEDS: LACTATED RINGERS 1,000 ML 150 ML IV CONT (11:37)
--- NOTE | 2021-10-26 11:38 | WPDANESEPPF ---
Anes - Initial Pre Proc Eval Procedure: Operation Date: 10/26/21 12:30 Proposed Procedures p Screening Colonoscopy - Brown St MD Date/Time: 10/26/21 11:38 Surgeon: Brown St MD Pre Op Diagnosis: neoplasm screening Patient Data Age: 75 Gender: F Height: 1.7 m Weight: 96.3 kg Last Vital Signs Temp 36.0 C L 10/26/21 11:18 Pulse 90 10/26/21 11:18 Resp 18 10/26/21 11:18 BP 92/76 L 10/26/21 11:18 Pulse Ox 95 10/26/21 11:18 O2 Del Method Room Air 10/26/21 11:18 Allergies Allergy/AdvReac Type Severity Reaction Status Date / Time adhesive tape Allergy Intermediate Rash Verified 10/26/21 11:15 Iodinated Contrast Media Allergy Mild Unknown Verified 10/26/21 11:15 codeine Allergy Unknown Unknown Verified 10/26/21 11:15 iodine Allergy Unknown Unknown Verified 10/26/21 11:15 morphine Allergy Unknown Unknown Verified 10/26/21 11:15 Home Medications Medication Instructions Recorded Confirmed Type aspirin 81 mg tablet,delayed 81 mg PO DAILY 03/09/19 10/26/21 History release (Adult Low Dose Aspirin) omega-3 fatty acids 1,000 mg 1,000 mg PO DAILY 08/17/20 10/26/21 History capsule (Fish Oil Concentrate) cyanocobalamin (vitamin B-12) 1,000 mcg PO DAILY 10/25/20 10/26/21 History 1,000 mcg tablet (Vitamin B-12) levothyroxine 150 mcg tablet 150 mcg PO DAILY #90 tabs 05/31/21 10/26/21 Rx montelukast 10 mg tablet 10 mg PO HS #90 tabs 07/12/21 10/26/21 Rx (Singulair) promethazine 25 mg tablet 25 mg PO TID PRN nausea and 07/16/21 10/26/21 Rx vomiting #30 tabs bupropion HCl 300 mg 24 hr tablet, 300 mg PO DAILY 08/03/21 10/26/21 History extended release (Wellbutrin XL) pantoprazole 40 mg tablet,delayed 40 mg PO HS 08/03/21 10/26/21 History release (Protonix) rosuvastatin 40 mg tablet (Crestor) 40 mg PO DAILY 08/03/21 10/26/21 History baclofen 5 mg tablet 5 mg PO TID PRN Muscle Spasm 08/20/21 10/26/21 History cholecalciferol (vitamin D3) 125 125 mcg PO DAILY 08/20/21 10/26/21 History mcg (5,000 unit) capsule escitalopram oxalate 20 mg tablet 10 mg PO DAILY 08/20/21 10/26/21 History (Lexapro) tramadol 50 mg tablet 50 mg PO Q6H PRN pain #120 tabs 08/28/21 10/26/21 Rx metformin 500 mg tablet,extended 1,000 mg PO BID 09/06/21 10/26/21 History release 24 hr lorazepam 0.5 mg tablet (Ativan) 0.5 mg PO BID PRN anxiety #30 tabs 09/18/21 10/26/21 Rx metoprolol succinate 50 mg 50 mg PO HS 09/18/21 10/26/21 History tablet,extended release 24 hr (Toprol XL) Curamed 60 mg BYMOUTH DAILY #100 tabs 10/03/21 10/26/21 Rx Glucosamine Chondroiton 1,100 mg BYMOUTH DAILY #110 caplets 10/03/21 10/26/21 Rx Prevagen 1 tablet BYMOUTH DAILY #30 tabs 10/03/21 10/26/21 Rx ascorbic acid (vitamin C) 1,000 mg 1 g PO DAILY 10/03/21 10/26/21 History tablet beet root 1,000 mg BYMOUTH DAILY #90 caps 10/03/21 10/26/21 Rx biotin 300 mcg BYMOUTH DAILY 10/03/21 10/26/21 History calcium carbonate 600 mg-vitamin 2 cap PO DAILY 10/03/21 10/26/21 History D3 12.5 mcg (500 unit) capsule folic acid 800 mcg tablet 0.8 mg PO DAILY 10/03/21 10/26/21 History glimepiride 2 mg tablet 2 mg PO QAM 10/03/21 10/26/21 History magnesium spray 1 spray topical DAILY PRN Arthritis 10/03/21 10/26/21 History nitroglycerin 0.4 mg sublingual 0.4 mg sublingual Q5M PRN chest 10/03/21 10/26/21 Rx tablet pain #25 tabs turmeric 500 mg BYMOUTH DAILY #100 tabs 10/03/21 10/26/21 Rx sucralfate 1 gram tablet See Rx Instructions .Route 10/08/21 10/26/21 Rx .COMPLEX #60 tabs blackberry 250 mg BYMOUTH DAILY PRN athritis 10/15/21 10/26/21 History gabapentin 100 mg capsule See Rx Instructions .Route 10/19/21 10/26/21 Rx .COMPLEX #90 caps prednisone 2.5 mg tablet 2.5 mg PO DAILY 30 days #30 tabs 10/22/21 10/26/21 Rx Patient hx anesthesia problems: none Family hx anesthesia problems: none Results Review: All pre-operative results and documents have been reviewed as part of the pre-operative evaluation. PMF[facility] Past Me
[2021-10-26 11:42] LABS: Glucose Point of Care 184 mg/dl (65-105)
[2021-10-26 13:01] VITALS: BP 89/41; PULSE 69; RESP 19; O2SAT 97
[2021-10-26 13:11] VITALS: BP 71/55; PULSE 72; RESP 20; O2SAT 97
[2021-10-26 13:21] VITALS: BP 104/49; PULSE 71; RESP 18; O2SAT 96
== END 2021-10-26 13:33 | disposition home or self-care (01) ==
PROVIDERS: PCP Internal Medicine; Visit Provider Internal Medicine Gastroenterology
PROC: 0DJD8ZZ Inspection of Lower Intestinal Tract, Via Natural or Artificial Opening Endoscopic (ICD-10-PCS; CPT 45378; principal; 2021-10-26 12:30)
DX: Z12.11 Encounter for screening for malignant neoplasm of colon (principal); Q27.33 Arteriovenous malformation of digestive system vessel; K64.8 Other hemorrhoids; K57.30 Diverticulosis of large intestine without perforation or abscess without bleeding; D12.2 Benign neoplasm of ascending colon; D12.3 Benign neoplasm of transverse colon; D12.5 Benign neoplasm of sigmoid colon; F41.8 Other specified anxiety disorders; I25.10 Atherosclerotic heart disease of native coronary artery without angina pectoris; I13.0 Hypertensive heart and chronic kidney disease with heart failure and stage 1 through stage 4 chronic kidney disease, or unspecified chronic kidney disease; I50.9 Heart failure, unspecified; E11.22 Type 2 diabetes mellitus with diabetic chronic kidney disease; N18.9 Chronic kidney disease, unspecified; G89.29 Other chronic pain; M79.7 Fibromyalgia; E78.5 Hyperlipidemia, unspecified; E89.0 Postprocedural hypothyroidism; I44.7 Left bundle-branch block, unspecified; M35.3 Polymyalgia rheumatica; E55.9 Vitamin D deficiency, unspecified; Z79.84 Long term (current) use of oral hypoglycemic drugs; Z79.82 Long term (current) use of aspirin; Z95.5 Presence of coronary angioplasty implant and graft; Z87.891 Personal history of nicotine dependence; E66.9 Obesity, unspecified; Z68.33 Body mass index [BMI] 33.0-33.9, adult
CPT/HCPCS: 45385; 45388; 82948; 88305; J2704; J7120

== ENCOUNTER 2021-11-03 10:21 | Outpatient (NON) | payer MEDICARE, SELFPAY ==
[2021-11-03 11:11] LABS: Appearance Urine Clear (Clear); Bilirubin Urine Negative (Negative); Blood Urine Negative (Negative); Color Urine Yellow (Yellow); Glucose Urine UA Negative (Negative); Ketones Urine Negative (Negative); Leukocyte Esterase Ur Negative LEU/UL (Negative); Nitrate Urine Negative (Negative); Protein Urine Trace mg/dL (Negative); Specific Grav Ur 1.015 (1.001-1.035); Urobilinogen Urine 0.2 mg/dL (<2.0)
[2021-11-03 11:28] LABS: Bacteria Urine Trace /hpf; RBC Urine 0-2 /hpf (0-2); Squamous Epithelial Cell Urine Rare /hpf (Few); Transitional Epi Cells Urine Rare /hpf (None Seen); WBC Urine 0-3 /hpf
[2021-11-03 11:40] LABS: Add Urine Microscopic? YES
== END 2021-11-03 10:22 | disposition home or self-care (01) ==
PROVIDERS: PCP Internal Medicine; Visit Provider Internal Medicine
DX: R35.0 Frequency of micturition (principal)
CPT/HCPCS: 81001

== ENCOUNTER 2021-11-30 15:49 | Emergency (ER) | payer MEDICARE, SELFPAY ==
--- NOTE | ~2021-11-30 | XR_ITS ---
XR thoracic spine 3V 11/30/2021 18:07 Indication: Status post fall. Back pain. Procedure: 3 views thoracic spine Comparison: No prior studies for comparison. Findings: Osteopenia. Mild scoliosis. Mild multilevel thoracic spondylosis. No acute fracture or trau matic malalignment. Pedicles intact. No paraspinal soft tissue abnormalities. Cardiomegaly. Atheroscl erosis. Impression: 1: No acute abnormality of the thoracic spine. Reviewed, dictated and finalized at location A. Impression: 1: No acute abnormality of the thoracic spine.
--- NOTE | ~2021-11-30 | XR_ITS ---
[XR ribs RT 2V ] INDICATION: Right rib pain TECHNIQUE: Frontal projection of the upper right ribs, frontal projection of the lower right ribs, ob lique projection of all the right ribs, frontal inspiratory chest x-ray for interpretation. FINDINGS: There are no displaced rib fractures identified. There are no soft tissue abnormality see n. The lungs are clear. IMPRESSION: 1:No acute displaced rib fractures. Reviewed, dictated and finalized at location A.
[2021-11-30 17:17] VITALS: BP 102/70; PULSE 80; RESP 18; TEMP 36.4; O2SAT 96
--- NOTE | 2021-11-30 17:30 | ED.FALL ---
HPI - Fall General Chief Complaint: Fall Stated Complaint: fall with right sided rip pain Time Seen by Provider: 11/30/21 17:23 History of Present Illness HPI Narrative: 76-year-old female presents the emergency room for evaluation of right posterior lateral rib pain status post fall. Patient states that she fell from ground-level, tripped over a clothing rack earlier today. Patient states that she landed on the back right side. States pain is worse with movement, applied pressure and inspiration. Related Data Allergies Allergy/AdvReac Type Severity Reaction Status Date / Time No Known Allergies Allergy Verified 11/30/21 15:51 Review of Systems Review of Systems: CONSTITUTIONAL: Denies fever, chills, or sweats. EYES: Denies visual changes, redness, or discharge. ENT: Denies rhinorrhea, congestion, sore throat, or otalgia. CARDIOVASCULAR: Denies chest pain, palpitations, or edema. RESPIRATORY: Denies cough or dyspnea. GASTROINTESTINAL: Denies abdominal pain, nausea, vomiting, or diarrhea. GENITOURINARY: Denies dysuria or hematuria. SKIN: Denies rash or itching. MUSCULOSKELETAL: Reports right thoracic back and right posterior rib cage pain NEUROLOGIC: Denies headache, numbness, dizziness, or weakness. PSYCHIATRIC: Denies anxiety or depression. Exam Narrative: GENERAL: Well-appearing, well-nourished, no physical limitations, and in no acute distress. HEAD: Normocephalic, atraumatic. EYES: Conjunctivae normal, PERRLA and EOMI. CHEST: Clear to auscultation. No respiratory distress. No wheezes rales or rhonchi. No tenderness. HEART: Regular rate and rhythm. No murmur heard. Normal peripheral pulses. BACK: Tenderness to the right posterior lateral ribs, no midline thoracic tenderness, no ecchymosis, no soft tissue swelling, no evidence of flail ribs EXTREMITIES: Normal range of motion. No edema. No clubbing or cyanosis SKIN: Warm, dry, no rash. No noted wounds NEURO: No focal deficits. Alert and oriented x3. MAEW. CN's II-XI intact bilaterally, normal gait PSYCH: Cooperative. Normal mood and affect. Course Vital Signs Vital signs: Vital Signs Temperature 36.4 C 11/30/21 17:17 Pulse Rate 80 11/30/21 17:17 Respiratory Rate 18 11/30/21 17:17 Blood Pressure 102/70 11/30/21 17:17 Pulse Oximetry 96 11/30/21 17:17 Oxygen Delivery Room Air 11/30/21 17:17 Temperature 36.4 C 11/30/21 17:17 Pulse Rate 80 11/30/21 17:17 Respiratory Rate 18 11/30/21 17:17 Blood Pressure 102/70 11/30/21 17:17 Pulse Oximetry 96 11/30/21 17:17 Oxygen Delivery Room Air 11/30/21 17:17 MDM - Fall Imaging Data Radiologist's impression: Impressions Thoracic Spine X-Ray 11/30/21 18:11 Impression: 1: No acute abnormality of the thoracic spine. Ribs X-Ray 11/30/21 18:13 IMPRESSION: 1:No acute displaced rib fractures. Discharge Plan Discharge Clinical Impression: Contusion of rib on right side Patient Disposition: Home, Self-Care Condition: Stable Instructions: Antibiotic Form, Contusion in Adults (ED) Additional Instructions: Use the incentive spirometer 4 times daily. May supplement the [place] with your THC, do not exceed more than 5 mg at a time. Prescriptions: New hydrocodone-acetaminophen 5-325 mg tablet 1 tablet PO Q6H PRN (Reason: pain) Qty: 15 0RF Follow-up/Referrals: Felix Powell MD [Primary Care Provider] - Time of Disposition: 20:06
[2021-11-30 20:34] VITALS: PULSE 82; RESP 22; O2SAT 96
== END 2021-11-30 20:36 | disposition home or self-care (01) ==
LOC: ANHED 20:17
PROVIDERS: Emergency Provider Nurse Practitioner Family; PCP Internal Medicine
DX: S20.211A Contusion of right front wall of thorax, initial encounter (principal); W18.09XA Striking against other object with subsequent fall, initial encounter
CPT/HCPCS: 71100; 72072; 99284

== ENCOUNTER 2022-01-16 09:06 | Outpatient (CLI) | payer MEDICARE, SELFPAY ==
--- NOTE | ~2022-01-16 | XR_ITS ---
EXAMINATION: XR chest 2V Exam Date/Time: 01/16/2022 9:22 CDT HISTORY: R05.9 - Cough, unspecified Comparison: 06/30/2021. RESULT: Lines, tubes, and devices: None. Lungs and pleura: Lateral view limited by poor inspiration and motion Subtle increased reticulonodul ar opacities in the right lower lung. Cardiomediastinal silhouette: Stable. Other: No acute osseous or upper abdominal finding. IMPRESSION: Right lower lung opacities may represent bronchiolitis, as can be seen with atypical infection, asthm a, aspiration, and small airways disease. Reviewed, dictated and finalized at location K. IMPRESSION: Right lower lung opacities may represent bronchiolitis, as can be seen with aty pical infection, asthma, aspiration, and small airways disease.
== END 2022-01-16 09:07 | disposition home or self-care (01) ==
PROVIDERS: PCP Internal Medicine; Visit Provider Internal Medicine
DX: R05.9 Cough, unspecified (principal); R91.8 Other nonspecific abnormal finding of lung field
CPT/HCPCS: 71046

== ENCOUNTER 2022-01-26 07:31 | Inpatient (IN) | payer MEDICARE, SELFPAY ==
[2022-01-26] VITALS (21 sets, daily range): BP systolic 107–177; BP diastolic 57–83; PULSE 65–84; RESP 16–22; TEMP 36.5–36.6; O2SAT 82–99; BMI 35.0
--- NOTE | ~2022-01-26 | XR_ITS ---
XR chest 1V portable 01/26/2022 09:41 Indication: Shortness of breath Procedure: AP portable chest Comparison: Comparison to multiple prior studies sequentially, with oldest reviewed study dated 06/30. Findings: Borderline heart size. Mild interstitial edema. No pleural effusion or pneumothorax. No acu te osseous abnormality. Impression: 1: Borderline heart size with mild interstitial edema. Reviewed, dictated and finalized at location A. Impression: 1: Borderline heart size with mild interstitial edema.
--- NOTE | ~2022-01-26 | US_ITS ---
EXAMINATION:US venous doppler LE BI INDICATION:Leg swelling TECHNIQUE: Multiple grayscale, color flow and Doppler images of the right and left lower extremity de ep venous systems were obtained and reviewed. COMPARISON:03/15/2020 FINDINGS: The common femoral, superficial femoral and popliteal veins demonstrate normal respiratory variation, augmentation and compressibility. Color flow is also seen within the posterior tibial, pe roneal, greater saphenous and profunda veins. IMPRESSION: 1: No lower extremity deep venous thrombosis. Reviewed, dictated and finalized at location B.
--- NOTE | ~2022-01-26 | XR_ITS ---
XR chest 2V DATE: 01/27/2022 17:13 INDICATION: Shortness of breath. TECHNIQUE: PA and lateral views COMPARISON: 01/22/2022 portable AP chest FINDINGS: Heart size appears within normal range there is a probable coronary artery stent. Aortic ca lcification and minimal unfolding. No hilar or mediastinal enlargement. Mild bilateral apical capping . Minimal discoid atelectasis or scarring in the left lower lung. No pulmonary infiltrate or consolidat ion, pleural effusion or pulmonary vascular congestion or pneumothorax is evident. Diffuse osteopenia. IMPRESSION: Minimal discoid atelectasis or scarring in the left lower lung; otherwise no active cardi ac pulmonary disease Reviewed, dictated and finalized at location A. IMPRESSION: Minimal discoid atelectasis or scarring in the left lower lung; oth erwise no active cardiac pulmonary disease
[2022-01-26] MEDS: ONDANSETRON INJ 4 MG/2 ML VIAL IV PUSH (07:48)
--- NOTE | 2022-01-26 07:59 | ED.SOB ---
HPI - SOB/Dyspnea General Chief Complaint: Shortness of Breath/Dyspnea Stated Complaint: shortness of breath Time Seen by Provider: 01/26/22 07:32 History of Present Illness HPI Narrative: 76 y/o CF who p/w SOA s/p being treated for PNA. Worsened yesterday and this morning. Contacted PCP and told to come to ER. No CP/palpitations. Occassional lightheadedness. Pt does have dysuria. Cough is not productive. No rhinorrhea. Has been vomiting, once here. Has been on Cefdinir and Azithromycin. Related Data Home Medications Medication Instructions Recorded Confirmed aspirin 81 mg tablet,delayed 81 mg PO DAILY 03/09/19 01/26/22 release (Adult Low Dose Aspirin) omega-3 fatty acids 1,000 mg 2,000 mg PO DAILY 08/17/20 01/26/22 capsule (Fish Oil Concentrate) cyanocobalamin (vitamin B-12) 1,000 mcg PO QPM 10/25/20 01/26/22 1,000 mcg tablet (Vitamin B-12) bupropion HCl 300 mg 24 hr tablet, 300 mg PO DAILY 08/03/21 01/26/22 extended release (Wellbutrin XL) pantoprazole 40 mg tablet,delayed 40 mg PO HS 08/03/21 01/26/22 release (Protonix) rosuvastatin 40 mg tablet (Crestor) 40 mg PO DAILY 08/03/21 01/26/22 ascorbic acid (vitamin C) 1,000 mg 2 g PO QPM 10/03/21 01/26/22 tablet biotin 300 mg BYMOUTH DAILY 10/03/21 01/26/22 magnesium spray 1 spray topical DAILY PRN Arthritis 10/03/21 01/26/22 Glucosamine Chondroiton 1,000 mg BYMOUTH BID 01/26/22 01/26/22 acetaminophen 325 mg tablet 325 mg PO Q4H PRN pain 01/26/22 01/26/22 beet root 2,000 mg BYMOUTH DAILY 01/26/22 01/26/22 cholecalciferol (vitamin D3) 25 2,000 unit PO DAILY 01/26/22 01/26/22 mcg (1,000 unit) tablet escitalopram oxalate 20 mg tablet 20 mg PO DAILY 01/26/22 01/26/22 gabapentin 100 mg capsule 100 mg PO DAILY 01/26/22 01/26/22 levothyroxine 150 mcg tablet 137 mcg PO DAILY 01/26/22 01/26/22 metformin 500 mg tablet,extended 200 mg PO DAILY 01/26/22 01/26/22 release 24 hr metoprolol succinate 50 mg 50 mg PO QPM 01/26/22 01/26/22 tablet,extended release 24 hr montelukast 10 mg tablet 10 mg PO DAILY 01/26/22 01/26/22 omega-3 fatty acids 1,000 mg 1,000 mg PO QPM 01/26/22 01/26/22 capsule sucralfate 1 gram tablet 1 g PO BIDWM PRN Acid Reflux 01/26/22 01/26/22 tramadol 50 mg tablet 50 mg PO Q4-6H PRN pain 01/26/22 01/26/22 turmeric 1,000 mg BYMOUTH DAILY 01/26/22 01/26/22 Allergies Allergy/AdvReac Type Severity Reaction Status Date / Time adhesive tape Allergy Intermediate Rash Verified 01/26/22 07:31 Iodinated Contrast Media Allergy Mild Hives Verified 01/26/22 13:30 codeine Allergy Unknown Hallucinati Verified 01/26/22 13:30 ng iodine Allergy Unknown Hives Verified 01/26/22 13:30 morphine Allergy Unknown Hallucinati Verified 01/26/22 13:30 ng Review of Systems Review of Systems: All systems reviewed & are unremarkable except as noted in HPI and below Constitutional: Constitutional: Denies chills, Reports fatigue and Denies fever(s) ENT: Denies nasal congestion and Denies sore throat Cardiovascular: Cardiovascular: Denies chest pain, Denies rapid heart rate and Denies radiating jaw, neck or arm pain Respiratory: Respiratory: Reports cough and Reports dyspnea Gastrointestinal: Gastrointestinal: Denies abdominal pain, Denies nausea and Denies vomiting Musculoskeletal: Musculoskeletal: Denies back pain and Denies myalgias [facility] Past Medical History Medical History (Updated 01/26/22 @ 18:36 by Abbe Tee MD) Anxiety with depression Bruit Chronic kidney disease Chronic obstructive pulmonary disease Chronic pain Coronary artery disease [place] in 2010 status post stent x2. Degenerative joint disease Familial tremor Fibromyalgia Hearing loss Heart failure of unknown type Hyperlipidemia Hypertension Hypothyroidism Left bundle branch block Polymyalgia rheumatica Thyroid cancer Type 2 diabetes mellitus Vitamin D deficiency Surgical History Surgical History (Updated 01/26/22 @ 14:02 by Kalyani Correia PA-C) History of
--- NOTE | 2022-01-26 08:33 | ECG_ITS ---
Measurements Intervals [place] Rate: 74 P: 95 [place]: 194 QRS: 32 QRSD: 155 T: 80 QT: 434 QTc: 482 Interpretive Statements SINUS RHYTHM LEFT BUNDLE BRANCH BLOCK BASELINE WANDER- V1-V2 ABNORMAL ECG NO PREVIOUS ECG AVAILABLE FOR COMPARISON Electronically Signed On 01-26-2022 11:14:56 CDT by Alvin Morrow D.O.
[2022-01-26 08:42] LABS: Basophils Absolute Auto 0.1 K/mm3 (0.0-0.1); Basophils Percent Auto 0.6 % (0.2-1.2); Eosinophils Absolute Auto 0.1 K/mm3 (0-0.3); Eosinophils Percent Auto 0.7 % (0-4.4); Hematocrit 42.4 % (37.0-47.0); Hemoglobin 13.5 g/dL (12.0-15.0); Immature Granulocyte Absolute 0.09 K/mm3 (0.00-0.031); Immature Granulocyte Percent A 0.6 % (0-0.5); Lymphocytes Absolute Auto 2.07 K/mm3 (0.9-3.2); Lymphocytes Percent Auto 12.9 % (18.3-44.2); Mean Corpuscular HGB Conc 31.8 g/dl (32-36); Mean Corpuscular Volume 87.8 fl (80-100); Mean Platelet Volume 10.5 fl (7.4-10.4); Monocytes Absolute Auto 0.9 K/mm3 (0.1-0.6); Monocytes Percent Auto 5.7 % (2.6-8.5); Neutrophils Absolute Auto 12.8 K/mm3 (1.3-6.7); Neutrophils Percent Auto 79.5 % (45.5-73.1); Platelet Count Result 293 k/mm3 (150-375); Red Blood Count 4.83 M/mm3 (4.2-5.4); Red Cell Distribution Width 15.4 % (11.5-14.5); White Blood Count 16.1 K/mm3 (4.5-10.0)
[2022-01-26] MEDS: ALBUTEROL SULFATE NEB 2.5 MG/3 ML INH 15 MG INHALATION (08:47)
[2022-01-26] MEDS: IPRATROPIUM BR 0.02% INH SOLN 0.5 MG/2.5 ML VIAL 1.5 MG INHALATION (08:47)
[2022-01-26 08:53] LABS: Alanine Aminotransferase 31 U/L (6-35); Albumin Level 4.3 g/dL (3.5-5.1); Alkaline Phosphatase 96 U/L (38-126); Anion Gap 12 mmol/L (8-16); Aspartate Amino Transferase 31 U/L (14-36); Bilirubin,Total 2.5 mg/dL (0.2-1.3); Blood Urea Nitrogen 14 mg/dL (7-17); Calcium 9.4 mg/dL (8.4-10.2); Carbon Dioxide 25 mmol/L (22-30); Chloride 100 mmol/L (98-107); Estimated CRCL calculation 56 ml/min; Estimated Glomerular Filt Rate > 60; Glucose 229 mg/dL (65-110); Potassium 3.9 mmol/L (3.4-5.0); Sodium 137 mmol/L (137-145)
[2022-01-26 08:57] LABS: Alveolar/Arterial O2 Gradient 125.6 mmHg; Fractional Inspired Oxygen 32 %; HCO3 ABG 26.6 mEq/l (22.0-26.0); Oxygen Content ABG 15.2 %vol (16.0-22.0); PCO2 ABG 46.2 mmHg (35.0-45.0); PO2 FiO2 Ratio Arterial Blood 1.52 %; Total Hemoglobin 13.2 g/dL (12.0-18.0); pH ABG 7.378 (7.350-7.450)
[2022-01-26] MEDS: methylPREDNISolone SOD SUCC 125 MG VIAL IV PUSH (08:59)
[2022-01-26 09:05] LABS: PO2 ABG 48.5 mmHg (80.0-100.0)
[2022-01-26 09:06] LABS: Oxygen Saturation ABG 83.1 % (95.0-100.0)
[2022-01-26 09:07] LABS: Device NASAL CANNULA; Modified Allen's Test Pass; Oxyhemoglobin 82.1 % THb (90.0-100.0); Site Drawn LEFT RADIAL
[2022-01-26 09:17] LABS: SARS-CoV-2 RNA PCR Negative
[2022-01-26 09:51] LABS: Appearance Urine Clear (Clear); Bilirubin Urine Negative (Negative); Blood Urine Negative (Negative); Color Urine Yellow (Yellow); Glucose Urine UA Trace mg/dL (Negative); Ketones Urine Negative (Negative); Leukocyte Esterase Ur Negative LEU/UL (Negative); Nitrate Urine Negative (Negative); Protein Urine 1+ mg/dL (Negative); Urobilinogen Urine 0.2 mg/dL (<2.0)
[2022-01-26 09:58] LABS: Mucus Urine Rare /lpf; RBC Urine 0-2 /hpf (0-2); Squamous Epithelial Cell Urine Rare /hpf (Few); WBC Urine 0-3 /hpf
[2022-01-26 10:20] LABS: Add Urine Microscopic? YES
--- NOTE | 2022-01-26 13:36 | ADMGEN ---
This patient, Allyson Tello, was admitted to Medical Room 247-. Patient/family oriented to hospital policies and general routines including ID bracelet, bed and alarms, visiting hours, pain management, procedures, bathroom and other care routines, personal items, smoking policy, room service/diet, and visiting hours. Information on how to activate the Rapid Response Team has been discussed. Patient/Family are encouraged to report perceived risks to care and to ask questions if they do not understand what they are told or what they should do.
--- NOTE | 2022-01-26 14:00 | PM.IMHP ---
H&P: HPI History of Present Illness Date/Time: 01/26/22 14:00 <Kalyani Correia PA-C - Last Filed: 01/27/22 00:05> Chief Complaint: Shortness of breath. <Kalyani Correia PA-C - Last Filed: 01/27/22 00:05> Narrative: This is a 76-year-old female with multiple medical problems including coronary artery disease with history of stents, congestive heart failure unknown type, hypertension, hyperlipidemia, diabetes, hypothyroidism, and other comorbidities who presented to the emergency department from home for evaluation of shortness of breath. She has had a barking, nonproductive cough and shortness of breath on exertion for nearly 10 days and she reports that she was diagnosed with left lower lobe pneumonia for which she completed a Z-Piyush and a course of cefdinir. Unfortunately she continues to have the cough and shortness of breath, and her shortness of breath seemed to be worse early this morning. She has not had a fever and denies chills and sweats. No sinus congestion or sore throat. She has not had any sick contacts to her knowledge. She denies chest pain, pleuritic pain, orthopnea, and paroxysmal nocturnal dyspnea. She has noticed some lower extremity edema which is unusual for her. No significant nausea but she did have 1 episode of emesis today, possibly related to a coughing jag. Her SpO2 was as low as 82% on room air in the emergency department she is currently on 3 liters nasal cannula. She has been afebrile since arrival with stable vital signs. Workup in the emergency department was significant for a WBC of 16.1, CRP 3.3, and proBNP 1700. Chest x-ray showed a borderline heart size with mild interstitial edema. She was started on levofloxacin Son in the emergency department and has been admitted for further treatment and evaluation. At the time my evaluation she is feeling okay. To her knowledge she does not have history of congestive heart failure. She has no history of venous thromboembolism. She has no concerns for sleep apnea. She denies dysphagia and concerns for aspiration. No significant GERD symptoms at nighttime. No history of COPD however she had ?chronic bronchitis? when she was a smoker 25 years ago. She is not on inhalers at home. <Kalyani Correia PA-C - Last Filed: 01/27/22 00:05> Review of Systems Review of Systems: Twelve systems were reviewed and are negative except for as per HPI. <Kalyani Correai PA-C - Last Filed: 01/27/22 00:05> [facility] Past Medical History Medical History: Medical History (Updated 01/26/22 @ 23:57 by Kalyani Correia PA-C) Anxiety with depression Bruit Chronic kidney disease Chronic pain Coronary artery disease [place] in 2010 status post stent x2. Degenerative joint disease Familial tremor Fibromyalgia Hearing loss Heart failure of unknown type Hyperlipidemia Hypertension Hypothyroidism Left bundle branch block Polymyalgia rheumatica Suspected chronic obstructive pulmonary disease based on initial evaluation Thyroid cancer Type 2 diabetes mellitus Vitamin D deficiency <Kalyani Correia PA-C - Last Filed: 01/27/22 00:05> Surgical History Surgical History: Surgical History (Updated 01/26/22 @ 14:02 by Kalyani Correia PA-C) History of breast biopsy History of cholecystectomy History of colonoscopy with polypectomy History of coronary artery stent placement History of epidermal inclusion cyst excision Left neck. History of hysterectomy History of partial thyroidectomy <Kalyani Correia PA-C - Last Filed: 01/27/22 00:05> Family History Family History: Family History Grandparent Diabetes mellitus Mother Hypertension Heart disease Ovarian cancer Father Malignant neoplasm of prostate Cerebrovascular accident Daughter Breast cancer <Kalyani Correia PA-C - Last Filed: 01/27/22 00:05> Social History Social History: Social History (Reviewe
[2022-01-26 14:29] LABS: Lactic Acid Reflex 0.9 mmol/L (0.7-2.0)
[2022-01-26 14:32] LABS: CRP 3.3 mg/dL (<1.0)
[2022-01-26 14:38] LABS: NT Pro B Type Natriuretic Pept 1700 pg/mL (5-100)
[2022-01-26 14:47] LABS: Hemoglobin A1C 7.2 % (<5.7)
[2022-01-26 14:50] LABS: D Dimer 0.37 ug/mL (<0.48)
[2022-01-26 15:11] LABS: Procalcitonin 0.1 ng/mL
[2022-01-26] MEDS: ALBUTEROL SULFATE NEB 2.5 MG/0.5 ML INH (17:00)
[2022-01-26 17:10] LABS: Glucose Point of Care 325 mg/dl (65-105)
[2022-01-26] MEDS: INSULIN ASPART (*BKC) 100 UNITS/ML SUB-Q (17:35)
[2022-01-26] MEDS: IPRATROPIUM BR 0.02% INH SOLN 0.5 MG/2.5 ML VIAL INHALATION (17:39)
[2022-01-26 21:02] LABS: Glucose Point of Care 283 mg/dl (65-105)
[2022-01-26] MEDS: ALBUTEROL SULFATE NEB 2.5 MG/3 ML INH INHALATION (21:18)
[2022-01-27] VITALS (7 sets, daily range): BP systolic 112–150; BP diastolic 50–68; PULSE 67–80; RESP 16–20; TEMP 36.1–36.7; O2SAT 95–100
[2022-01-27] MEDS: ACETAMINOPHEN 325 MG TABLET 650 MG PO (00:38)
[2022-01-27] MEDS: PANTOPRAZOLE 40 MG TABLET PO ×2 (00:38→20:54)
[2022-01-27 06:25] LABS: Anion Gap 7 mmol/L (8-16); Blood Urea Nitrogen 15 mg/dL (7-17); Calcium 9.4 mg/dL (8.4-10.2); Carbon Dioxide 27 mmol/L (22-30); Chloride 104 mmol/L (98-107); Estimated CRCL calculation 51 ml/min; Estimated Glomerular Filt Rate 54; Glucose 245 mg/dL (65-110); Sodium 138 mmol/L (137-145)
[2022-01-27] MEDS: FUROSEMIDE INJ 40 MG/4 ML VIAL IV PUSH ×3 (06:29→17:19)
[2022-01-27] MEDS: LEVOTHYROXINE SODIUM 25 MCG TABLET PO (06:29)
[2022-01-27 06:30] LABS: Basophils Percent Auto 0.2 % (0.2-1.2); Hematocrit 35.3 % (37.0-47.0); Hemoglobin 11.4 g/dL (12.0-15.0); Immature Granulocyte Absolute 0.12 K/mm3 (0.00-0.031); Immature Granulocyte Percent A 1.1 % (0-0.5); Lymphocytes Absolute Auto 0.91 K/mm3 (0.9-3.2); Lymphocytes Percent Auto 8.1 % (18.3-44.2); Mean Corpuscular HGB Conc 32.3 g/dl (32-36); Mean Corpuscular Hemoglobin 27.9 pg (26-34); Mean Corpuscular Volume 86.5 fl (80-100); Mean Platelet Volume 10.6 fl (7.4-10.4); Monocytes Absolute Auto 0.5 K/mm3 (0.1-0.6); Monocytes Percent Auto 4.3 % (2.6-8.5); Neutrophils Absolute Auto 9.7 K/mm3 (1.3-6.7); Neutrophils Percent Auto 86.3 % (45.5-73.1); Platelet Count Result 230 k/mm3 (150-375); Red Blood Count 4.08 M/mm3 (4.2-5.4); White Blood Count 11.2 K/mm3 (4.5-10.0)
[2022-01-27] MEDS: OMEGA 3 POLYUNSAT FATTY ACIDS 1 GM CAP 2 GM PO (08:13)
[2022-01-27] MEDS: LEVOTHYROXINE SODIUM 112 MCG TABLET PO (08:13)
[2022-01-27] MEDS: buPROPion HCL XL (24 HR) 150 MG TABCR 300 MG PO (08:14)
[2022-01-27] MEDS: GABAPENTIN 100 MG CAPSULE PO (08:14)
[2022-01-27] MEDS: SUCRALFATE 1 GM TABLET PO ×2 (08:14→17:20)
[2022-01-27] MEDS: ASPIRIN 81 MG ENTERIC TABLET PO (08:14)
[2022-01-27] MEDS: CHOLECALCIFEROL 1,000 UNITS TABLET 2000 UNITS PO (08:14)
[2022-01-27] MEDS: MONTELUKAST SODIUM 10 MG TABLET PO (08:14)
[2022-01-27] MEDS: ROSUVASTATIN 10 MG TABLET 40 MG PO (08:14)
[2022-01-27] MEDS: ESCITALOPRAM OXALATE 10 MG TABLET 20 MG PO (08:15)
[2022-01-27 08:37] LABS: Glucose Point of Care 241 mg/dl (65-105)
[2022-01-27] MEDS: INSULIN ASPART (*BKC) 100 UNITS/ML SUB-Q ×2 (08:45→12:23)
[2022-01-27] MEDS: ENOXAPARIN 40 MG/0.4 ML SYRINGE SUB-Q (08:47)
[2022-01-27] MEDS: polyethylene glycoL 3350 17 GM POWD.PACK PO (12:01)
[2022-01-27 12:08] LABS: Glucose Point of Care 234 mg/dl (65-105)
--- NOTE | 2022-01-27 12:30 | PM.IMPN ---
Progress Note: A&P Assessment and Plan (1) Hypoxia: Code(s): R09.02 - Hypoxemia Status: Acute Assessment and Plan: SPO2 was 82% on room air Chest xray indicates interstitial pulmonary edema Lasix on board I&Os trend SPO2 Titrate and wean oxygen to maintain saturation DC antibiotics since this appears to be CHF BNP appears to be 1700 (2) Heart failure of unknown type: Code(s): I50.9 - Heart failure, unspecified Status: Acute Assessment and Plan: Chest xray interstitial edema, cardiomegaly Lasix 40mg IV BID x 4 doses Echo ordered Seems to be an acute exacerbation of diastolic heart failure Daily weights Strict I&Os BNP is 1700 (3) Type 2 diabetes mellitus: Code(s): E11.9 - Type 2 diabetes mellitus without complications Status: Acute Assessment and Plan: Current glucose 245 Hold home metformin A1c 7.2 Trend glucose ISS Hypoglycemia protocol Accu cheks AC/HS Adjust therapy as indicated (4) Abnormal chest x-ray: Code(s): R93.89 - Abnormal findings on diagnostic imaging of other specified body structures Status: Acute Assessment and Plan: See above (5) Suspected chronic obstructive pulmonary disease based on initial evaluation: Code(s): J44.9 - Chronic obstructive pulmonary disease, unspecified Status: Acute Assessment and Plan: Neb treatments Not in acute exacerbation Trend respiratory status Time Spent With Patient Time with patient: Greater than 35 minutes Subjective Date/time seen: 01/27/22 1230 Interval history: 01/27/22 1230 Patient is doing ok. She stated that she is doing better. She is still concerned about being on oxygen. She also was inquiring about her leg swelling. She denies any chest pain, shortness of breath, nausea, vomiting, diarrhea, constipation, weakness, or fatigue. She would also like to be set up with a class for diabetes. She stated that she knows she is not good at it. 01/26/22? 14:00 This is a 76-year-old female with multiple medical problems including coronary artery disease with history of stents, congestive heart failure unknown type, hypertension, hyperlipidemia, diabetes, hypothyroidism, and other comorbidities who presented to the emergency department from home for evaluation of shortness of breath. She has had a barking, nonproductive cough and shortness of breath on exertion for nearly 10 days and she reports that she was diagnosed with left lower lobe pneumonia for which she completed a Z-Piyush and a course of cefdinir. Unfortunately she continues to have the cough and shortness of breath, and her shortness of breath seemed to be worse early this morning. She has not had a fever and denies chills and sweats. No sinus congestion or sore throat.? She has not had any sick contacts to her knowledge.? She denies chest pain, pleuritic pain, orthopnea, and paroxysmal nocturnal dyspnea. She has noticed some lower extremity edema which is unusual for her. No significant nausea but she did have 1 episode of emesis today, possibly related to a coughing jag. Her SpO2 was as low as 82% on room air in the emergency department she is currently on 3 liters nasal cannula. She has been afebrile since arrival with stable vital signs. Workup in the emergency department was significant for a WBC of 16.1, CRP 3.3, and proBNP 1700. Chest x-ray showed a borderline heart size with mild interstitial edema. She was started on levofloxacin Son in the emergency department and has been admitted for further treatment and evaluation. At the time my evaluation she is feeling okay. To her knowledge she does not have history of congestive heart failure.? She has no history of venous thromboembolism. She has no concerns for sleep apnea. She denies dysphagia and concerns for aspiration. No significant GERD symptoms at nighttime. 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
[2022-01-27 16:57] LABS: Glucose Point of Care 161 mg/dl (65-105)
[2022-01-27 17:10] LABS: Troponin I < 0.012 ng/mL (0.000-0.034)
[2022-01-27] MEDS: OMEGA 3 POLYUNSAT FATTY ACIDS 1 GM CAP PO (17:19)
[2022-01-27] MEDS: ASCORBIC ACID 500 MG TABLET 2000 MG PO (17:20)
[2022-01-27] MEDS: METOPROLOL SUCCINATE EXT REL 50 MG TABCR PO (17:20)
[2022-01-27] MEDS: CYANOCOBALAMIN 1,000 MCG TABLET 1000 MCG PO (17:20)
[2022-01-27] MEDS: SENNA/DOCUSATE SODIUM TABLET 1 TAB PO (20:54)
[2022-01-27 22:24] LABS: Glucose Point of Care 126 mg/dl (65-105)
[2022-01-28] VITALS (9 sets, daily range): BP systolic 124–163; BP diastolic 46–83; PULSE 66–76; RESP 16–20; TEMP 36.4–36.6; O2SAT 95–99
--- NOTE | 2022-01-28 | ECHO_ITS ---
Patient Info Name: Allyson Tello Age: 76 years : 1945 Gender: Female Ht: 67 in Wt: 223 lbs BSA: 2.23 m2 HR: 69 bpm BP: 128 / 46 mmHg Heart Rhythm: Sinus Rhythm Technical Quality: Poor Exam Date: 01/28/2022 2:26 PM Exam Location: [facility] Pulmonary Exam Room: 241 Patient Status: Inpatient Admit Date: 01/26/2022 Staff Ordering Physician: Kalyani Correia PA-C Night Manager: Magnolia Hernandez RDCS Attending Provider: Lizzy Cruz MD Referring Physician: Masood HATHAWAY; Exam Type: CA echo dop color flow w con Study Info Indications - chf cad htn Complete two-dimensional, color flow and Doppler transthoracic echocardiogram is performed with contrast to opacify the left ventricle and to improve the deliniation of the left ventricle endocardial borders. Contrast/Agitated Saline Contrast/Ag. Saline: Definity Amount: 2.00 ml Administered By: Magnolia Hernandez [facility] Existing IV Access: Yes IV Access Condition: patent with no signs of infiltration Reason for Poor Study: patient body habitus Summary 1. Left ventricular chamber dimension is normal. 2. Left ventricular systolic function is normal, estimated at 55-60%. 3. There is no increased left ventricular wall thickness. 4. Left ventricular septal wall motion is abnormal with septal motion related to bundle branch block. 5. The left ventricular diastolic function is grade I diastolic dysfunction. 6. Left atrial chamber dimension is mildly enlarged. 7. There is mild aortic valve regurgitation. 8. There is mild aortic valve calcification. 9. There is mild tricuspid valve regurgitation. 10. Moderate pulmonary hypertension, estimated pulmonary arterial systolic pressure is 49 mmHg. Left Ventricle Left ventricular chamber dimension is normal. Left ventricular systolic function is normal, estimated at 55-60%. There is no increased left ventricular wall thickness. Left ventricular septal wall motion is abnormal with septal motion related to bundle branch block. The left ventricular diastolic function is grade I diastolic dysfunction. Right Ventricle Right ventricular chamber dimension is normal. Right ventricular systolic function is normal. Left Atria Left atrial chamber dimension is mildly enlarged. Right Atria Right atrial chamber dimension is normal. Atrial Septum Intact interatrial septum visualized by color flow imaging. Aortic Valve The aortic valve is trileaflet. There is no aortic valve stenosis. There is mild aortic valve regurgitation. There is mild aortic valve calcification. Pulmonic Valve The pulmonic valve is normal. There is no pulmonic valve stenosis. There is trace pulmonic regurgitation. Mitral Valve The mitral valve has thickened leaflets. There is no mitral valve stenosis. There is trace mitral valve regurgitation. Tricuspid Valve The tricuspid valve leaflets are normal. There is no significant tricuspid valve stenosis. There is mild tricuspid valve regurgitation. Moderate pulmonary hypertension, estimated pulmonary arterial systolic pressure is 49 mmHg. Pericardium/Pleural The pericardium appears normal. There is trivial pericardial effusion. Inferior Vena Cava Normal inferior vena cava with >50% collapse upon inspiration consistent with normal right atrial pressure, 10 mmHg. Aorta The aortic root size at the sinus of Valsalva is normal. Left Ventricular Outflow Tra
[2022-01-28] MEDS: ACETAMINOPHEN 325 MG TABLET 650 MG PO ×2 (00:46→19:43)
[2022-01-28 05:29] LABS: Basophils Percent Auto 0.3 % (0.2-1.2); Eosinophils Percent Auto 0.1 % (0-4.4); Hematocrit 36.6 % (37.0-47.0); Hemoglobin 11.6 g/dL (12.0-15.0); Immature Granulocyte Absolute 0.07 K/mm3 (0.00-0.031); Immature Granulocyte Percent A 0.6 % (0-0.5); Lymphocytes Absolute Auto 1.83 K/mm3 (0.9-3.2); Lymphocytes Percent Auto 14.8 % (18.3-44.2); Mean Corpuscular HGB Conc 31.7 g/dl (32-36); Mean Corpuscular Hemoglobin 27.9 pg (26-34); Mean Platelet Volume 10.4 fl (7.4-10.4); Monocytes Absolute Auto 1.1 K/mm3 (0.1-0.6); Neutrophils Absolute Auto 9.3 K/mm3 (1.3-6.7); Neutrophils Percent Auto 75.2 % (45.5-73.1); Platelet Count Result 225 k/mm3 (150-375); Red Blood Count 4.16 M/mm3 (4.2-5.4); Red Cell Distribution Width 15.5 % (11.5-14.5); White Blood Count 12.4 K/mm3 (4.5-10.0)
[2022-01-28] MEDS: LEVOTHYROXINE SODIUM 112 MCG TABLET PO (05:41)
[2022-01-28 05:42] LABS: Alanine Aminotransferase 24 U/L (6-35); Albumin Level 3.6 g/dL (3.5-5.1); Alkaline Phosphatase 80 U/L (38-126); Anion Gap 9 mmol/L (8-16); Aspartate Amino Transferase 20 U/L (14-36); Bilirubin,Total 1.1 mg/dL (0.2-1.3); Blood Urea Nitrogen 25 mg/dL (7-17); Calcium 9.1 mg/dL (8.4-10.2); Carbon Dioxide 33 mmol/L (22-30); Chloride 98 mmol/L (98-107); Estimated CRCL calculation 30 ml/min; Estimated Glomerular Filt Rate 31; Glucose 171 mg/dL (65-110); Magnesium 1.9 mg/dL (1.6-2.3); Potassium 3.2 mmol/L (3.4-5.0); Sodium 140 mmol/L (137-145)
[2022-01-28] MEDS: LEVOTHYROXINE SODIUM 25 MCG TABLET PO (05:42)
[2022-01-28] MEDS: GABAPENTIN 100 MG CAPSULE PO (08:27)
[2022-01-28] MEDS: CHOLECALCIFEROL 1,000 UNITS TABLET 2000 UNITS PO (08:27)
[2022-01-28] MEDS: ASPIRIN 81 MG ENTERIC TABLET PO (08:27)
[2022-01-28] MEDS: buPROPion HCL XL (24 HR) 150 MG TABCR 300 MG PO (08:28)
[2022-01-28] MEDS: POTASSIUM CHLORIDE 20 MEQ TABLET 40 MEQ PO (08:28)
[2022-01-28] MEDS: ROSUVASTATIN 10 MG TABLET 40 MG PO (08:28)
[2022-01-28] MEDS: SUCRALFATE 1 GM TABLET PO ×2 (08:28→17:17)
[2022-01-28] MEDS: ESCITALOPRAM OXALATE 10 MG TABLET 20 MG PO (08:28)
[2022-01-28] MEDS: ENOXAPARIN 40 MG/0.4 ML SYRINGE SUB-Q (08:28)
[2022-01-28] MEDS: MONTELUKAST SODIUM 10 MG TABLET PO (08:28)
[2022-01-28] MEDS: OMEGA 3 POLYUNSAT FATTY ACIDS 1 GM CAP 2 GM PO (08:28)
[2022-01-28] MEDS: polyethylene glycoL 3350 17 GM POWD.PACK PO (08:28)
[2022-01-28 08:32] LABS: Glucose Point of Care 167 mg/dl (65-105)
--- NOTE | 2022-01-28 10:50 | PC.NURSE ---
Addendum entered by Annemarie Navarro, LUCIA 01/28/22 10:53: JAMES Osborne spoke with patient. Agreeable to sputum culture, will complete when she feels like she has something to spit . Original Note: Patient refusing sputum culture because she doesn't spit, and nothing is coming out anyway . Provided education, will attempt at a later time.
--- NOTE | 2022-01-28 11:45 | P.PNIM_ITS ---
Progress Note: A&P Assessment and Plan (1) Hypoxia: Code(s): R09.02 - Hypoxemia Status: Acute Assessment and Plan: * SPO2 was 82% on room air upon addmission * Chest xray repeated on 01/27/22 that shows atelectasis or scarring in the left lower lung, otherwise no active cardiac pulmonary disease * Lasix stopped due to CHAD * I&Os * trend SPO2 * Titrate and wean oxygen to maintain saturation * Restart Levaquin for possible COPD exacerbation * Sputum culture ordered * BNP appears to be 1700 (2) Heart failure of unknown type: Code(s): I50.9 - Heart failure, unspecified Status: Acute Assessment and Plan: * Chest xray interstitial edema, cardiomegaly * Lasix 40mg IV BID, stopped at this time due to CHAD * Echo ordered * Seems to be an acute exacerbation of diastolic heart failure * Daily weights * Strict I&Os * BNP is 1700 (3) Type 2 diabetes mellitus: Code(s): E11.9 - Type 2 diabetes mellitus without complications Status: Acute Assessment and Plan: * Current glucose 171 * Hold home metformin * A1c 7.2 * Trend glucose * ISS * Hypoglycemia protocol * Accu cheks AC/HS * Adjust therapy as indicated (4) Abnormal chest x-ray: Code(s): R93.89 - Abnormal findings on diagnostic imaging of other specified body structures Status: Acute Assessment and Plan: * See above (5) Suspected chronic obstructive pulmonary disease based on initial evaluation: Code(s): J44.9 - Chronic obstructive pulmonary disease, unspecified Status: Acute Assessment and Plan: * Neb treatments * Could be an acute exacerbation * Restart levaquin * Consider steroids * Chest xray read as minimal discoid atelectasis or scarring in the left lower lung, no acute cardiopulmonary disease * Supplemental oxygen, wean to maintain saturation >90% * Trend respiratory status (6) Chest tightness: Code(s): R07.89 - Other chest pain Status: Acute Assessment and Plan: * Complaints of chest tightness * SPO2 ok * Trop 0.012 * Chest xray shows atelectasis * Neb treatments ordered * EKG SR 74 (7) CHAD (acute kidney injury): Code(s): N17.9 - Acute kidney failure, unspecified Status: Acute Assessment and Plan: * Current BUN/Cr 25/1.60 * Baseline creatinine 1.0 * Could be related to diuresis * Lasix stopped for now * Trend urine output * Urine labs ordered * trend labs * avoid nephrotoxic medications Plan Complaints of urgency and frequency. UA has been ordered Time Spent With Patient Time with patient: Greater than 35 minutes Subjective Date/time seen: 01/28/22 1145 Interval history: 01/28/22 114 Patient was sitting in the chair upon arrival. She stated that she feels that she has a feeling of a full bladder, however, when she goes not much comes out. She also stated that she is having urgency and frequency, and it is warm to the touch. She was having some chest tightness with nausea however, this is resolved at this time. She also has a cough, that she stated is not productive. She also stated that she was really constipated however it has turned into a diarrhea, bright yellow in nature. UA is also ordered for further evaluation. She currently denies any chest pain, shortness of breath,
--- NOTE | 2022-01-28 11:45 | PM.IMPN ---
Progress Note: A&P Assessment and Plan (1) Hypoxia: Code(s): R09.02 - Hypoxemia Status: Acute Assessment and Plan: SPO2 was 82% on room air upon addmission Chest xray repeated on 01/27/22 that shows atelectasis or scarring in the left lower lung, otherwise no active cardiac pulmonary disease Lasix stopped due to CHAD I&Os trend SPO2 Titrate and wean oxygen to maintain saturation Restart Levaquin for possible COPD exacerbation Sputum culture ordered BNP appears to be 1700 (2) Heart failure of unknown type: Code(s): I50.9 - Heart failure, unspecified Status: Acute Assessment and Plan: Chest xray interstitial edema, cardiomegaly Lasix 40mg IV BID, stopped at this time due to CHAD Echo ordered Seems to be an acute exacerbation of diastolic heart failure Daily weights Strict I&Os BNP is 1700 (3) Type 2 diabetes mellitus: Code(s): E11.9 - Type 2 diabetes mellitus without complications Status: Acute Assessment and Plan: Current glucose 171 Hold home metformin A1c 7.2 Trend glucose ISS Hypoglycemia protocol Accu cheks AC/HS Adjust therapy as indicated (4) Abnormal chest x-ray: Code(s): R93.89 - Abnormal findings on diagnostic imaging of other specified body structures Status: Acute Assessment and Plan: See above (5) Suspected chronic obstructive pulmonary disease based on initial evaluation: Code(s): J44.9 - Chronic obstructive pulmonary disease, unspecified Status: Acute Assessment and Plan: Neb treatments Could be an acute exacerbation Restart levaquin Consider steroids Chest xray read as minimal discoid atelectasis or scarring in the left lower lung, no acute cardiopulmonary disease Supplemental oxygen, wean to maintain saturation >90% Trend respiratory status (6) Chest tightness: Code(s): R07.89 - Other chest pain Status: Acute Assessment and Plan: Complaints of chest tightness SPO2 ok Trop 0.012 Chest xray shows atelectasis Neb treatments ordered EKG SR 74 (7) CHAD (acute kidney injury): Code(s): N17.9 - Acute kidney failure, unspecified Status: Acute Assessment and Plan: Current BUN/Cr 25/1.60 Baseline creatinine 1.0 Could be related to diuresis Lasix stopped for now Trend urine output Urine labs ordered trend labs avoid nephrotoxic medications Plan Complaints of urgency and frequency. UA has been ordered Time Spent With Patient Time with patient: Greater than 35 minutes Subjective Date/time seen: 01/28/22 1145 Interval history: 01/28/22 1145 Patient was sitting in the chair upon arrival. She stated that she feels that she has a feeling of a full bladder, however, when she goes not much comes out. She also stated that she is having urgency and frequency, and it is warm to the touch. She was having some chest tightness with nausea however, this is resolved at this time. She also has a cough, that she stated is not productive. She also stated that she was really constipated however it has turned into a diarrhea, bright yellow in nature. UA is also ordered for further evaluation. She currently denies any chest pain, shortness of breath, nausea, vomiting, diarrhea, constipation. 01/27/22 1230 Patient is doing ok. She stated that she is doing better. She is still concerned about being on oxygen. She also was inquiring about her leg swelling. She denies any chest pain, shortness of breath, nausea, vomiting, diarrhea, constipation, weakness, or fatigue. She would also like to be set up with a class for diabetes. She stated that she knows she is not good at it. 01/26/22? 14:00 This is a 76-year-old female with multiple medical problems including coronary artery disease with history of stents, congestive heart failure unknown type, hy
[2022-01-28 12:20] LABS: Glucose Point of Care 269 mg/dl (65-105)
[2022-01-28] MEDS: INSULIN ASPART (*BKC) 100 UNITS/ML SUB-Q (12:38)
[2022-01-28 13:48] LABS: Appearance Urine Clear (Clear); Bilirubin Urine Negative (Negative); Blood Urine Negative (Negative); Color Urine Yellow (Yellow); Glucose Urine UA Trace mg/dL (Negative); Ketones Urine Negative (Negative); Leukocyte Esterase Ur Negative LEU/UL (Negative); Nitrate Urine Negative (Negative); Protein Urine 2+ mg/dL (Negative); Specific Grav Ur >= 1.030 (1.001-1.035); Urobilinogen Urine 0.2 mg/dL (<2.0)
[2022-01-28 14:15] LABS: Mucus Urine Rare /lpf; RBC Urine 0-2 /hpf (0-2); Squamous Epithelial Cell Urine Occasional /hpf (Few)
[2022-01-28 14:20] LABS: Add Urine Microscopic? YES
[2022-01-28] MEDS: PERFLUTREN LIPID MICROSPHERES 1.5 ML VIAL DILUTED TO 10 ML TOTAL VOLUME IV PUSH (14:30)
[2022-01-28 17:00] LABS: Glucose Point of Care 189 mg/dl (65-105)
[2022-01-28] MEDS: METOPROLOL SUCCINATE EXT REL 50 MG TABCR PO (17:16)
[2022-01-28] MEDS: ASCORBIC ACID 500 MG TABLET 2000 MG PO (17:17)
[2022-01-28] MEDS: CYANOCOBALAMIN 1,000 MCG TABLET 1000 MCG PO (17:17)
[2022-01-28] MEDS: OMEGA 3 POLYUNSAT FATTY ACIDS 1 GM CAP PO (17:17)
[2022-01-28] MEDS: SENNA/DOCUSATE SODIUM TABLET 1 TAB PO (20:04)
[2022-01-28] MEDS: PANTOPRAZOLE 40 MG TABLET PO (20:04)
[2022-01-28 23:31] LABS: Glucose Point of Care 242 mg/dl (65-105)
[2022-01-29 00:42] VITALS: BP 130/60; PULSE 67; RESP 14; TEMP 36.7; O2SAT 93
[2022-01-29 05:19] VITALS: BP 134/60; PULSE 70; RESP 16; TEMP 36.6; O2SAT 94
[2022-01-29 05:26] LABS: Basophils Percent Auto 0.5 % (0.2-1.2); Eosinophils Absolute Auto 0.1 K/mm3 (0-0.3); Hematocrit 37.1 % (37.0-47.0); Hemoglobin 11.6 g/dL (12.0-15.0); Immature Granulocyte Absolute 0.05 K/mm3 (0.00-0.031); Immature Granulocyte Percent A 0.6 % (0-0.5); Lymphocytes Absolute Auto 1.87 K/mm3 (0.9-3.2); Lymphocytes Percent Auto 23.8 % (18.3-44.2); Mean Corpuscular HGB Conc 31.3 g/dl (32-36); Mean Corpuscular Hemoglobin 27.8 pg (26-34); Mean Corpuscular Volume 88.8 fl (80-100); Mean Platelet Volume 10.4 fl (7.4-10.4); Monocytes Absolute Auto 0.8 K/mm3 (0.1-0.6); Monocytes Percent Auto 9.8 % (2.6-8.5); Neutrophils Absolute Auto 5.1 K/mm3 (1.3-6.7); Neutrophils Percent Auto 64.3 % (45.5-73.1); Platelet Count Result 239 k/mm3 (150-375); Red Blood Count 4.18 M/mm3 (4.2-5.4); Red Cell Distribution Width 15.8 % (11.5-14.5); White Blood Count 7.9 K/mm3 (4.5-10.0)
[2022-01-29] MEDS: LEVOTHYROXINE SODIUM 25 MCG TABLET PO (05:40)
[2022-01-29] MEDS: LEVOTHYROXINE SODIUM 112 MCG TABLET PO (05:41)
[2022-01-29 05:47] LABS: Alanine Aminotransferase 23 U/L (6-35); Albumin Level 3.7 g/dL (3.5-5.1); Alkaline Phosphatase 72 U/L (38-126); Anion Gap 11 mmol/L (8-16); Aspartate Amino Transferase 18 U/L (14-36); Bilirubin,Total 1.1 mg/dL (0.2-1.3); Blood Urea Nitrogen 21 mg/dL (7-17); Calcium 9.3 mg/dL (8.4-10.2); Carbon Dioxide 32 mmol/L (22-30); Chloride 100 mmol/L (98-107); Estimated CRCL calculation 39 ml/min; Estimated Glomerular Filt Rate 44; Glucose 172 mg/dL (65-110); Magnesium 2.1 mg/dL (1.6-2.3); Potassium 3.5 mmol/L (3.4-5.0); Sodium 143 mmol/L (137-145)
--- NOTE | 2022-01-29 07:02 | P.PNIM_ITS ---
Progress Note: A&P Assessment and Plan (1) Hypoxia: Code(s): R09.02 - Hypoxemia Status: Acute Assessment and Plan: * SPO2 was 82% on room air upon addmission * Chest xray repeated on 01/27/22 that shows atelectasis or scarring in the left lower lung, otherwise no active cardiac pulmonary disease * Lasix stopped due to CHAD * I&Os * trend SPO2 * Titrate and wean oxygen to maintain saturation * Restart Levaquin for possible COPD exacerbation * Sputum culture ordered * BNP appears to be 1700 (2) CHAD (acute kidney injury): Code(s): N17.9 - Acute kidney failure, unspecified Status: Acute Assessment and Plan: * Current BUN/Cr 21/1.20 * Baseline creatinine 1.0 * Could be related to diuresis * Lasix stopped for now * Trend urine output * Urine labs * trend labs * avoid nephrotoxic medications (3) Heart failure of unknown type: Code(s): I50.9 - Heart failure, unspecified Status: Acute Assessment and Plan: * Chest xray interstitial edema, cardiomegaly * Lasix 40mg IV BID, stopped at this time due to CHAD * Echo * Seems to be an acute exacerbation of diastolic heart failure * Daily weights * Strict I&Os * BNP is 1700 (4) Type 2 diabetes mellitus: Code(s): E11.9 - Type 2 diabetes mellitus without complications Status: Acute Assessment and Plan: * Current glucose 172 * Hold home metformin * A1c 7.2 * Trend glucose * ISS * Hypoglycemia protocol * Accu cheks AC/HS * Adjust therapy as indicated (5) Abnormal chest x-ray: Code(s): R93.89 - Abnormal findings on diagnostic imaging of other specified body structures Status: Acute Assessment and Plan: * See above (6) Suspected chronic obstructive pulmonary disease based on initial evaluation: Code(s): J44.9 - Chronic obstructive pulmonary disease, unspecified Status: Acute Assessment and Plan: * Neb treatments * Could be an acute exacerbation * Restart levaquin * Consider steroids * Chest xray read as minimal discoid atelectasis or scarring in the left lower lung, no acute cardiopulmonary disease * Supplemental oxygen, wean to maintain saturation >90% * Trend respiratory status (7) Chest tightness: Code(s): R07.89 - Other chest pain Status: Acute Assessment and Plan: * Complaints of chest tightness * SPO2 ok * Trop 0.012 * Chest xray shows atelectasis * Neb treatments ordered * EKG SR 74 Time Spent With Patient Time with patient: Greater than 35 minutes Subjective Date/time seen: 01/29/22 07:02 Interval history: 01/29/22 01/28/22 1145 Patient was sitting in the chair upon arrival. She stated that she feels that she has a feeling of a full bladder, however, when she goes not much comes out. She also stated that she is having urgency and frequency, and it is warm to the touch. She was having some chest tightness with nausea however, this is resolved at this time. She also has a cough, that she stated is not productive. She also stated that she was really constipated however it has turned into a diarrhea, bright yellow in nature. UA is also ordered for further evaluation. She currently denies any chest pain, shortness of breath, nausea, vomiting, diarrhea, constipation.
--- NOTE | 2022-01-29 07:02 | PM.IMPN ---
Progress Note: A&P Assessment and Plan (1) Hypoxia: Code(s): R09.02 - Hypoxemia Status: Acute Assessment and Plan: SPO2 was 82% on room air upon addmission Chest xray repeated on 01/27/22 that shows atelectasis or scarring in the left lower lung, otherwise no active cardiac pulmonary disease Lasix stopped due to CHAD I&Os trend SPO2 Titrate and wean oxygen to maintain saturation Restart Levaquin for possible COPD exacerbation Sputum culture ordered BNP appears to be 1700 (2) CHAD (acute kidney injury): Code(s): N17.9 - Acute kidney failure, unspecified Status: Acute Assessment and Plan: Current BUN/Cr 21/1.20 Baseline creatinine 1.0 Could be related to diuresis Lasix stopped for now Trend urine output Urine labs trend labs avoid nephrotoxic medications (3) Heart failure of unknown type: Code(s): I50.9 - Heart failure, unspecified Status: Acute Assessment and Plan: Chest xray interstitial edema, cardiomegaly Lasix 40mg IV BID, stopped at this time due to CHAD Echo Seems to be an acute exacerbation of diastolic heart failure Daily weights Strict I&Os BNP is 1700 (4) Type 2 diabetes mellitus: Code(s): E11.9 - Type 2 diabetes mellitus without complications Status: Acute Assessment and Plan: Current glucose 172 Hold home metformin A1c 7.2 Trend glucose ISS Hypoglycemia protocol Accu cheks AC/HS Adjust therapy as indicated (5) Abnormal chest x-ray: Code(s): R93.89 - Abnormal findings on diagnostic imaging of other specified body structures Status: Acute Assessment and Plan: See above (6) Suspected chronic obstructive pulmonary disease based on initial evaluation: Code(s): J44.9 - Chronic obstructive pulmonary disease, unspecified Status: Acute Assessment and Plan: Neb treatments Could be an acute exacerbation Restart levaquin Consider steroids Chest xray read as minimal discoid atelectasis or scarring in the left lower lung, no acute cardiopulmonary disease Supplemental oxygen, wean to maintain saturation >90% Trend respiratory status (7) Chest tightness: Code(s): R07.89 - Other chest pain Status: Acute Assessment and Plan: Complaints of chest tightness SPO2 ok Trop 0.012 Chest xray shows atelectasis Neb treatments ordered EKG SR 74 Time Spent With Patient Time with patient: Greater than 35 minutes Subjective Date/time seen: 01/29/22 07:02 Interval history: 01/29/22 01/28/22 1145 Patient was sitting in the chair upon arrival. She stated that she feels that she has a feeling of a full bladder, however, when she goes not much comes out. She also stated that she is having urgency and frequency, and it is warm to the touch. She was having some chest tightness with nausea however, this is resolved at this time. She also has a cough, that she stated is not productive. She also stated that she was really constipated however it has turned into a diarrhea, bright yellow in nature. UA is also ordered for further evaluation. She currently denies any chest pain, shortness of breath, nausea, vomiting, diarrhea, constipation. 01/27/22 1230 Patient is doing ok. She stated that she is doing better. She is still concerned about being on oxygen. She also was inquiring about her leg swelling. She denies any chest pain, shortness of breath, nausea, vomiting, diarrhea, constipation, weakness, or fatigue. She would also like to be set up with a class for diabetes. She stated that she knows she is not good at it. 01/26/22? 14:00 This is a 76-year-old female with multiple medical problems including coronary artery disease with history of stents, congestive heart failure unknown type, hypertension, hyperlipidemia, diabetes, hypothyroidism, and other c
[2022-01-29 08:09] LABS: Glucose Point of Care 188 mg/dl (65-105)
[2022-01-29] MEDS: ACETAMINOPHEN 325 MG TABLET 650 MG PO (08:56)
[2022-01-29] MEDS: CHOLECALCIFEROL 1,000 UNITS TABLET 2000 UNITS PO (08:57)
[2022-01-29] MEDS: ENOXAPARIN 40 MG/0.4 ML SYRINGE SUB-Q (08:57)
[2022-01-29] MEDS: OMEGA 3 POLYUNSAT FATTY ACIDS 1 GM CAP 2 GM PO (08:57)
[2022-01-29] MEDS: ESCITALOPRAM OXALATE 10 MG TABLET 20 MG PO (08:57)
[2022-01-29] MEDS: MONTELUKAST SODIUM 10 MG TABLET PO (08:57)
[2022-01-29] MEDS: ASPIRIN 81 MG ENTERIC TABLET PO (08:57)
[2022-01-29] MEDS: GABAPENTIN 100 MG CAPSULE PO (08:57)
[2022-01-29] MEDS: ROSUVASTATIN 10 MG TABLET 40 MG PO (08:57)
[2022-01-29] MEDS: buPROPion HCL XL (24 HR) 150 MG TABCR 300 MG PO (08:57)
[2022-01-29] MEDS: SUCRALFATE 1 GM TABLET PO (08:57)
[2022-01-29] MEDS: polyethylene glycoL 3350 17 GM POWD.PACK PO (08:58)
[2022-01-29 09:30] VITALS: BP 143/55; PULSE 68; RESP 16; TEMP 36.4; O2SAT 96
[2022-01-29 12:14] LABS: Glucose Point of Care 216 mg/dl (65-105)
[2022-01-29] MEDS: INSULIN ASPART (*BKC) 100 UNITS/ML SUB-Q (12:35)
[2022-01-29 13:28] VITALS: BP 147/60; PULSE 71; RESP 16; TEMP 36.8; O2SAT 98
--- NOTE | 2022-01-29 13:56 | P.DS_ITS ---
DS: Admitting Diagnosis Discharge Date 01/29/22 1345 Admitting Diagnosis PNA/CHF/CHAD DS: Discharge Diagnosis Discharge Diagnosis (1) Hypoxia: Code(s): R09.02 - Hypoxemia Status: Acute Assessment and Plan: * SPO2 was 82% on room air upon admission * Chest xray repeated on 01/27/22 that shows atelectasis or scarring in the left lower lung, otherwise no active cardiac pulmonary disease * Lasix will be given PRN on weight * I&Os * trend SPO2 * Titrate and wean oxygen to maintain saturation * Levaquin PO for 7 doses * Sputum culture ordered * BNP appears to be 1700 (2) CHAD (acute kidney injury): Code(s): N17.9 - Acute kidney failure, unspecified Status: Acute Assessment and Plan: * Current BUN/Cr 21/1.20 * Baseline creatinine 1.0 * Could be related to diuresis * Lasix 40mg PO PRN based on weight * Trend urine output * Urine labs * trend labs * avoid nephrotoxic medications (3) Heart failure of unknown type: Code(s): I50.9 - Heart failure, unspecified Status: Acute Assessment and Plan: * Chest xray interstitial edema, cardiomegaly * Lasix 40mg IV BID, changed to 40mg PO Daily PRN by weight * Echo * Seems to be an acute exacerbation of diastolic heart failure * Daily weights * Strict I&Os * BNP is 1700 (4) Type 2 diabetes mellitus: Code(s): E11.9 - Type 2 diabetes mellitus without complications Status: Acute Assessment and Plan: * Current glucose 172 * Hold home metformin * A1c 7.2 * Trend glucose * ISS * Hypoglycemia protocol * Accu cheks AC/HS * Adjust therapy as indicated (5) Abnormal chest x-ray: Code(s): R93.89 - Abnormal findings on diagnostic imaging of other specified body structures Status: Acute Assessment and Plan: * See above (6) Suspected chronic obstructive pulmonary disease based on initial evaluation: Code(s): J44.9 - Chronic obstructive pulmonary disease, unspecified Status: Acute Assessment and Plan: * Neb treatments * Could be an acute exacerbation * Levaquin x 10 days * Consider steroids * Chest xray read as minimal discoid atelectasis or scarring in the left lower lung, no acute cardiopulmonary disease * Supplemental oxygen, wean to maintain saturation >90% * Trend respiratory status (7) Chest tightness: Code(s): R07.89 - Other chest pain Status: Acute Assessment and Plan: * Complaints of chest tightness * SPO2 ok * Trop 0.012 * Chest xray shows atelectasis * Neb treatments ordered * EKG SR 74 DS: Summary Hospital Course Hospital Course: Patient is a 76-year-old female with a past medical history of CKD, HLD, HTN, Hypothyroid, Type 2 diabetes who presented to the ED with complaints of shortness of breath. Upon arrival she was noted to have a saturation of 82% and was placed on supplemental oxygen. BNP was noted ot be elevated at 1700. She was started on Levaquin in the ED. She was also started on lasix IV as she was exhibiting, 3-4+ pitting edema bilateral. However, due to worsening renal function, the lasix was stopped and renal function improved. Echo was performed however is not read at this time. She was noted to be hyperglycemic and her A1c was 7.2. Josue hose and compression stocking were also placed with good results.
--- NOTE | 2022-01-29 13:56 | PM.DS ---
DS: Admitting Diagnosis Discharge Date 01/29/22 1345 Admitting Diagnosis PNA/CHF/CHAD DS: Discharge Diagnosis Discharge Diagnosis (1) Hypoxia: Code(s): R09.02 - Hypoxemia Status: Acute Assessment and Plan: SPO2 was 82% on room air upon admission Chest xray repeated on 01/27/22 that shows atelectasis or scarring in the left lower lung, otherwise no active cardiac pulmonary disease Lasix will be given PRN on weight I&Os trend SPO2 Titrate and wean oxygen to maintain saturation Levaquin PO for 7 doses Sputum culture ordered BNP appears to be 1700 (2) CHAD (acute kidney injury): Code(s): N17.9 - Acute kidney failure, unspecified Status: Acute Assessment and Plan: Current BUN/Cr 21/1.20 Baseline creatinine 1.0 Could be related to diuresis Lasix 40mg PO PRN based on weight Trend urine output Urine labs trend labs avoid nephrotoxic medications (3) Heart failure of unknown type: Code(s): I50.9 - Heart failure, unspecified Status: Acute Assessment and Plan: Chest xray interstitial edema, cardiomegaly Lasix 40mg IV BID, changed to 40mg PO Daily PRN by weight Echo Seems to be an acute exacerbation of diastolic heart failure Daily weights Strict I&Os BNP is 1700 (4) Type 2 diabetes mellitus: Code(s): E11.9 - Type 2 diabetes mellitus without complications Status: Acute Assessment and Plan: Current glucose 172 Hold home metformin A1c 7.2 Trend glucose ISS Hypoglycemia protocol Accu cheks AC/HS Adjust therapy as indicated (5) Abnormal chest x-ray: Code(s): R93.89 - Abnormal findings on diagnostic imaging of other specified body structures Status: Acute Assessment and Plan: See above (6) Suspected chronic obstructive pulmonary disease based on initial evaluation: Code(s): J44.9 - Chronic obstructive pulmonary disease, unspecified Status: Acute Assessment and Plan: Neb treatments Could be an acute exacerbation Levaquin x 10 days Consider steroids Chest xray read as minimal discoid atelectasis or scarring in the left lower lung, no acute cardiopulmonary disease Supplemental oxygen, wean to maintain saturation >90% Trend respiratory status (7) Chest tightness: Code(s): R07.89 - Other chest pain Status: Acute Assessment and Plan: Complaints of chest tightness SPO2 ok Trop 0.012 Chest xray shows atelectasis Neb treatments ordered EKG SR 74 DS: Summary Hospital Course Hospital Course: Patient is a 76-year-old female with a past medical history of CKD, HLD, HTN, Hypothyroid, Type 2 diabetes who presented to the ED with complaints of shortness of breath. Upon arrival she was noted to have a saturation of 82% and was placed on supplemental oxygen. BNP was noted ot be elevated at 1700. She was started on Levaquin in the ED. She was also started on lasix IV as she was exhibiting, 3-4+ pitting edema bilateral. However, due to worsening renal function, the lasix was stopped and renal function improved. Echo was performed however is not read at this time. She was noted to be hyperglycemic and her A1c was 7.2. Josue hose and compression stocking were also placed with good results. Chest xray upon arrival did indicate interstitial edema. Repeat chest xray showed atelectasis or scarring in the left lower lung. Sputum culture was ordered but not collected. UA was collected but did not indicate any infection. She denies current chest pain, shortness of breath, nausea, vomiting, diarrhea, constipation, weakness or fatigue. She is stable for DC. Labs are stable. Education about checking weight given. Called Dr. Powell' office and gave them an update. Would like a BNP in one week. Status at Discharge Functional status at discharge: uses cane/walker Overall status at disc
[2022-01-29 14:16] LABS: Pneumococcal Antigen Urine Not Detected (Not Detected)
[2022-01-29 20:26] LABS: Mycoplasma IgM Antibody Titer 64 U/mL (<770)
[2022-01-30 15:53] LABS: Legionella pneumophila Ag Ur Not Detected (Not Detected)
== END 2022-01-29 15:00 | disposition home or self-care (01) | DRG 291 ==
LOC: ANHED 08:04 → ANH2MED 12:54
PROVIDERS: Physician Assistant; Admitting Provider Family Medicine; Emergency Provider Emergency Medicine; PCP Internal Medicine; Visit Provider Nurse Practitioner
DX: I13.0 Hypertensive heart and chronic kidney disease with heart failure and stage 1 through stage 4 chronic kidney disease, or unspecified chronic kidney disease (principal); I50.33 Acute on chronic diastolic (congestive) heart failure; N17.9 Acute kidney failure, unspecified; J44.1 Chronic obstructive pulmonary disease with (acute) exacerbation; I25.10 Atherosclerotic heart disease of native coronary artery without angina pectoris; N18.9 Chronic kidney disease, unspecified; E11.22 Type 2 diabetes mellitus with diabetic chronic kidney disease; E55.9 Vitamin D deficiency, unspecified; E78.5 Hyperlipidemia, unspecified; R09.02 Hypoxemia; M35.3 Polymyalgia rheumatica; M19.90 Unspecified osteoarthritis, unspecified site; E89.0 Postprocedural hypothyroidism; M79.7 Fibromyalgia; R09.89 Other specified symptoms and signs involving the circulatory and respiratory systems; G25.0 Essential tremor; G89.29 Other chronic pain; F41.9 Anxiety disorder, unspecified; F32.A Depression, unspecified; I25.2 Old myocardial infarction; Z20.822 Contact with and (suspected) exposure to COVID-19; Z85.850 Personal history of malignant neoplasm of thyroid; Z95.5 Presence of coronary angioplasty implant and graft; Z86.010 Personal history of colon polyps; Z90.49 Acquired absence of other specified parts of digestive tract; Z90.710 Acquired absence of both cervix and uterus; Z87.891 Personal history of nicotine dependence
CPT/HCPCS: 36415; 36600; 71045; 71046; 80048; 80053; 81001; 82805; 82948; 83036; 83605; 83735; 83880; 84145; 84443; 84484; 85025; 85380; 86140; 86738; 87040; 87449; 87899; 93005; 93970; 94640; 96374; 96375; 99285; A9270; C8929; C9803; G0378; J1650; J1815; J1940; J1956; J2405; J2930; J7030; Q9957; U0003; U0005

== ENCOUNTER 2022-02-06 13:58 | Outpatient (CLI) | payer MEDICARE, SELFPAY ==
[2022-02-06 14:30] LABS: Anion Gap 12 mmol/L (8-16); Blood Urea Nitrogen 21 mg/dL (7-17); Calcium 9.4 mg/dL (8.4-10.2); Carbon Dioxide 30 mmol/L (22-30); Chloride 97 mmol/L (98-107); Estimated Glomerular Filt Rate 40; Glucose 195 mg/dL (65-110); Potassium 3.4 mmol/L (3.4-5.0); Sodium 139 mmol/L (137-145)
== END 2022-02-06 13:59 | disposition home or self-care (01) ==
PROVIDERS: PCP Internal Medicine; Visit Provider Internal Medicine
DX: N17.9 Acute kidney failure, unspecified (principal)
CPT/HCPCS: 36415; 80048

== ENCOUNTER 2022-02-28 14:43 | Outpatient (CLI) | payer MEDICARE, SELFPAY ==
--- NOTE | ~2022-02-28 | XR_ITS ---
XR lumbar spine min 4V DATE: 02/28/2022 15:39 INDICATION: Back pain TECHNIQUE: AP, lateral, bilateral oblique views, coned lateral lumbosacral view COMPARISON: 12/02/2019 lumbar spine FINDINGS: Mild/moderate levoscoliosis of the thoracolumbar spine. There is degenerative change at the apophyseal joints, with associated minimal grade 1 anterolisthesi s at L4-5. Mild degenerative disc disease and spurring at L1-2, L2-3. Moderate degenerative disc disease L3-4. Severe degenerative disease at L4-5. Moderate degenerative disease at L5-S1. No spondylolysis. No fracture or bone destruction. The lumbar pedicles are intact. The sacroiliac joints are intact. Status post cholecystectomy. IMPRESSION: Multilevel degenerative disc disease Reviewed, dictated and finalized at location A.
--- NOTE | ~2022-02-28 | XR_ITS ---
XR sacroiliac joints min 3V DATE: 02/28/2022 15:39 INDICATION: Back pain TECHNIQUE: AP and oblique views COMPARISON: None FINDINGS: Normal alignment at the sacroiliac joints. No fracture or dislocation, erosive change or an kylosis is noted. Normal alignment at the pubic symphysis. Hip joint spaces appear symmetric and rela tively well preserved. 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 Reviewed, dictated and finalized at location A.
[2022-02-28 15:37] LABS: Alanine Aminotransferase 19 U/L (6-35); Albumin Level 4.2 g/dL (3.5-5.1); Alkaline Phosphatase 84 U/L (38-126); Anion Gap 9 mmol/L (8-16); Aspartate Amino Transferase 21 U/L (14-36); Bilirubin,Total 1.4 mg/dL (0.2-1.3); Blood Urea Nitrogen 19 mg/dL (7-17); CRP < 0.5 mg/dL (<1.0); Calcium 9.4 mg/dL (8.4-10.2); Carbon Dioxide 26 mmol/L (22-30); Chloride 103 mmol/L (98-107); Estimated Glomerular Filt Rate 36; Glucose 165 mg/dL (65-110); Sodium 138 mmol/L (137-145)
[2022-02-28 15:56] LABS: Erythrocyte Sedimentation Rate 18 mm/hr (0-20)
== END 2022-02-28 14:44 | disposition home or self-care (01) ==
LOC: ANHLAB 14:44
PROVIDERS: PCP Internal Medicine; Visit Provider Internal Medicine
DX: M35.3 Polymyalgia rheumatica (principal); M79.7 Fibromyalgia; Z79.899 Other long term (current) drug therapy; G89.29 Other chronic pain; M46.1 Sacroiliitis, not elsewhere classified; M53.3 Sacrococcygeal disorders, not elsewhere classified; M51.36 Other intervertebral disc degeneration, lumbar region; M51.37 Other intervertebral disc degeneration, lumbosacral region
CPT/HCPCS: 36415; 72110; 72202; 80053; 85652; 86140

== ENCOUNTER → 2022-06-13 09:33 | Outpatient (CLI) | payer MEDICARE, SELFPAY ==
--- NOTE | ~2022-06-13 | MMUS_ITS ---
EXAMINATION: MM diagnostic maximus BI w stephenie, US breast BI complete HISTORY: TECHNIQUE: ML, MLO and CC 3-D tomosynthesis images of both breasts were performed and synthetic 2-D i mages were generated. CAD analysis was submitted and interpreted. Bilateral magnification views. High resolution bilateral complete breast ultrasound examination including all 4 quadrants and subareolar areas was performed. COMPARISON: 02/29/2020 diagnostic bilateral mammogram and limited right breast ultrasound 06/11/2019 bilateral diagnostic mammography and limited right breast ultrasound 01/27/2019 bilateral diagnostic mammogram BREAST PARENCHYMAL COMPOSITION: There are scattered areas of fibroglandular density. FINDINGS: MAMMOGRAPHIC FINDINGS: There is a biopsy marker on the right; history of prior bilateral benign breast biopsies. There are numerous bilateral microcalcifications, including occasional calcified microhematoma proba ble densely calcified 7 mm left fibroadenoma. There are multiple punctate circular benign appearing m icrocalcifications. There is one area of indeterminate somewhat granular appearing microcalcifications in the posterior u pper outer quadrant of left breast. Stereotactically guided biopsy is recommended. No suspicious mass or significant new or developing density is noted otherwise. ULTRASOUND: Right breast: 1:00 3 cm from nipple: 2.5 mm circumscribed sonolucency, likely a small cyst or other benign process 2:00 4 cm from nipple: 2 mm sonolucency, probably a small cyst 3:00 4 cm from nipple: Parallel circumscribed hypoechoic solid lesion measuring 2.4 x 4.5 x 3.8 mm, w ithout internal vascularity or posterior shadowing, likely benign 3:00 4 cm from nipple: Approximately 4.9 x 5 x 6 mm probable cluster of cysts, without internal vascu larity or posterior shadowing 6:00 3 cm from nipple: 4.8 x 4.1 mm septated cyst 9:00 10 cm from nipple: Approximately 3.7 x 8.3 x 7 x 3 mm multi septated probable cysts or cluster o f cysts. Left breast: 12:00 4 cm from nipple: Approximately 2.6 x 3.4 mm antiparallel irregular hypoechoic area with promin ent posterior shadowing, without corresponding calcification on mammogram. Ultrasound-guided biopsy i s recommended. 2:00 6 cm from nipple: Parallel circumscribed 1.9 x 3.2 mm sonolucency, most likely a small cyst 5:00 4 cm from nipple: 1.7 x 2.9 x 3 mm probable cyst 9:00 6 cm from nipple: Approximately 5 x 3.7 hypoechoic area with calcification and posterior shadowi ng, corresponding to density calcified fibroadenoma on mammography. 11:00 3 cm from nipple: Parallel circumscribed hypoechoic 2.9 x 3.5 mm lesion without internal vascul arity or posterior shadowing Subareolar area: 1.8 x 3.8 x 3.4 mm circumscribed parallel hypoechoic lesion without internal vascula rity or suspicious shadowing IMPRESSION: 1. Suspicious granular microcalcifications in the posterior upper outer left breast; stereotactic bio psy is recommended 2. Antiparallel hypoechoic suspicious left breast mass at 12:00 4 cm from nipple; ultrasound-guided b iopsy is recommended BI-RADS category 4, suspicious findings. Recommendations: 1. Stereotactic biopsy of posterior upper outer quadrant left breast grouped granular indeterminate m icrocalcifications 2. Ultrasound-guided biopsy of 12:00 hypoechoic shadowing approximately 2.6 x 3.4 mm lesion 4 cm from nipple Reviewed, dictated and finalized at location A. [employer]ING [employer]AD IMPRESSION: 1. Suspicious granular microcalcifications in the posterior upper outer left br east; stereotactic biopsy is recommended 2. Antiparallel hypoechoic suspicious left breast mass at 12:00 4 cm from nippl e; ultrasound-guided biopsy is recommended BI-RADS category 4, suspicious findings. Recom
== END ==
PROVIDERS: PCP Internal Medicine; Visit Provider Internal Medicine
DX: N64.4 Mastodynia (principal); Z87.898 Personal history of other specified conditions; R92.8 Other abnormal and inconclusive findings on diagnostic imaging of breast
CPT/HCPCS: 76641; 77062; 77066; G0279

== ENCOUNTER 2022-07-01 13:26 | Outpatient (CLI) | payer MEDICARE, SELFPAY ==
--- NOTE | ~2022-07-01 | XR_ITS ---
EXAMINATION: XR abdomen obstructive series DATE: 07/01/2022 14:05 INDICATION: Abdominal pain TECHNIQUE: Supine and upright views of the abdomen. FINDINGS: No prior studies for comparison. The visualized lung parenchyma is normal.. There is a nonobstructive bowel gas pattern. Gas and stool are seen throughout the colon to the level of the rectum. There is no free air. IMPRESSION: 1. No acute abdominal abnormality. Reviewed, dictated and finalized at location B. 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
[2022-07-01 14:56] LABS: Basophils Absolute Auto 0.1 K/mm3 (0.0-0.1); Basophils Percent Auto 0.7 % (0.2-1.2); Eosinophils Absolute Auto 0.2 K/mm3 (0-0.3); Hematocrit 43.2 % (37.0-47.0); Immature Granulocyte Absolute 0.03 K/mm3 (0.00-0.031); Immature Granulocyte Percent A 0.4 % (0-0.5); Lymphocytes Absolute Auto 1.99 K/mm3 (0.9-3.2); Lymphocytes Percent Auto 28.8 % (18.3-44.2); Mean Corpuscular HGB Conc 32.4 g/dl (32-36); Mean Corpuscular Hemoglobin 28.9 pg (26-34); Mean Corpuscular Volume 89.3 fl (80-100); Mean Platelet Volume 10.7 fl (7.4-10.4); Monocytes Absolute Auto 0.5 K/mm3 (0.1-0.6); Monocytes Percent Auto 7.7 % (2.6-8.5); Neutrophils Absolute Auto 4.1 K/mm3 (1.3-6.7); Neutrophils Percent Auto 59.4 % (45.5-73.1); Platelet Count Result 262 k/mm3 (150-375); Red Blood Count 4.84 M/mm3 (4.2-5.4); Red Cell Distribution Width 15.9 % (11.5-14.5); White Blood Count 6.9 K/mm3 (4.5-10.0)
[2022-07-01 15:17] LABS: Alanine Aminotransferase 60 U/L (6-35); Albumin Level 4.6 g/dL (3.5-5.1); Alkaline Phosphatase 146 U/L (38-126); Amylase 57 U/L (30-110); Aspartate Amino Transferase 23 U/L (14-36); Bilirubin,Total 1.3 mg/dL (0.2-1.3); Lipase 37 U/L (23-300)
[2022-07-01 15:44] LABS: Appearance Urine Clear (Clear); Bilirubin Urine Negative (Negative); Blood Urine Negative (Negative); Color Urine Yellow (Yellow); Glucose Urine UA Negative (Negative); Ketones Urine Trace mg/dL (Negative); Leukocyte Esterase Ur Negative LEU/UL (Negative); Nitrate Urine Negative (Negative); Protein Urine 2+ mg/dL (Negative); Specific Grav Ur 1.025 (1.001-1.035)
[2022-07-01 15:54] LABS: Mucus Urine Rare /lpf; Squamous Epithelial Cell Urine Few /hpf (Few)
[2022-07-01 16:13] LABS: Add Urine Microscopic? YES
== END 2022-07-01 13:27 | disposition home or self-care (01) ==
PROVIDERS: PCP Internal Medicine; Visit Provider Internal Medicine
DX: R10.9 Unspecified abdominal pain (principal)
CPT/HCPCS: 36415; 74019; 80076; 81001; 82150; 83690; 85025

== ENCOUNTER 2022-07-09 12:43 | Outpatient (CLI) | payer MEDICARE, SELFPAY ==
--- NOTE | ~2022-07-09 | US_ITS ---
EXAMINATION: US abdomen complete DATE: 07/09/2022 13:40 INDICATION: R10.9 - Unspecified abdominal pain TECHNIQUE: Multiple grayscale and Doppler ultrasound images of the abdomen were obtained. COMPARISON: CT abdomen and pelvis 10/25/2020. FINDINGS: The visualized portions of the pancreas are normal. The liver is normal size with increased echogenicity and normal echotexture. No surface nodularity. Normal hepatopetal flow in the main port al vein. Gallbladder surgically absent. The common bile duct measures 11 mm. There was no sonographic Stokes sign. The proximal aorta measures up to 3.4 cm. The visualized portions of the inferior vena cava were normal. The right kidney measures 10.6 x 4.9 x 5.7 cm. The left kidney measures 9.5 x 4.8 x 5.3 cm. The kidne ys demonstrate normal parenchymal echogenicity. There is no hydronephrosis. The spleen is normal in a ppearance and measures 11 cm. IMPRESSION: Echogenic liver, most commonly due to steatosis but also can be seen with hepatitis and fibrosis. Dil ated common bile duct, correlate with biliary labs. 3.4 cm proximal abdominal aortic aneurysm, recomm end follow-up with abdominal ultrasound in 3 years. Reviewed, dictated and finalized at location K. H [employer]IN P[employer]ER IMPRESSION: Echogenic liver, most commonly due to steatosis but also can be seen with hepat itis and fibrosis. Dilated common bile duct, correlate with biliary labs. 3.4 c m proximal abdominal aortic aneurysm, recommend follow-up with abdominal ultras ound in 3 years.
== END 2022-07-09 12:44 | disposition home or self-care (01) ==
PROVIDERS: PCP Internal Medicine; Visit Provider Internal Medicine
DX: R10.9 Unspecified abdominal pain (principal)
CPT/HCPCS: 76700

== ENCOUNTER 2022-07-13 12:29 | Outpatient (CLI) | payer MEDICARE, SELFPAY ==
[2022-07-13 13:09] LABS: Alanine Aminotransferase 84 U/L (6-35); Albumin Level 4.2 g/dL (3.5-5.1); Alkaline Phosphatase 123 U/L (38-126); Anion Gap 5 mmol/L (8-16); Aspartate Amino Transferase 87 U/L (14-36); Bilirubin,Total 2.3 mg/dL (0.2-1.3); Blood Urea Nitrogen 15 mg/dL (7-17); Calcium 9.8 mg/dL (8.4-10.2); Carbon Dioxide 29 mmol/L (22-30); Chloride 100 mmol/L (98-107); Cholesterol 171 mg/dL (0-200); Estimated Glomerular Filt Rate 54; Glucose 189 mg/dL (65-110); HDL Direct 88 mg/dL; Potassium 3.9 mmol/L (3.4-5.0); Sodium 134 mmol/L (137-145); Triglycerides 180 mg/dL (<150)
[2022-07-13 13:20] LABS: LDL Cholesterol Direct 55 mg/dL
[2022-07-13 13:29] LABS: Free T4 Free Thyroxine 1.26 ng/mL (0.78-2.19); Hemoglobin A1C 6.5 % (<5.7)
== END 2022-07-13 12:30 | disposition home or self-care (01) ==
PROVIDERS: PCP Internal Medicine; Visit Provider Internal Medicine
DX: E78.5 Hyperlipidemia, unspecified (principal); E03.9 Hypothyroidism, unspecified; E11.59 Type 2 diabetes mellitus with other circulatory complications; I15.2 Hypertension secondary to endocrine disorders; E55.9 Vitamin D deficiency, unspecified
CPT/HCPCS: 36415; 80053; 80061; 82306; 83036; 84439; 84443

== ENCOUNTER 2022-08-07 10:02 | Outpatient (CLI) | payer MEDICARE, SELFPAY ==
--- NOTE | ~2022-08-07 | US_ITS ---
EXAMINATION: US GUIDED NEEDLE BIOPSY DATE: 08/07/2022 13:31 CDT INDICATION: Left breast 12:00 hypoechoic 2.6 x 3.4 mm shadowing lesion TECHNIQUE AND FINDINGS: The risks and potential benefits of the procedure were discussed with the patient, and written inform ed consent was obtained. Timeout procedure was performed. After sterile preparation of the left breas t, 1% lidocaine was utilized for local anesthesia. A 14G spring-loaded biopsy gun needle was advanced to the edge of the region of interest from a later al approach utilizing sonographic guidance. A total of 2 tissue core samples were obtained through t he lesion. An Inrad tissue marker clip was then placed at the biopsy site. Hemostasis was achieved. A sterile bandage was applied. The patient tolerated procedure well and there was no evidence of immediate complication. The patien t was given verbal instructions prior to departing from the department. The tissue samples were submi tted to surgical pathology for histologic analysis. IMPRESSION: 1. Successful ultrasound guided biopsy of superficial shadowing small 12:00 left breast mass with bi opsy marker placement. Please refer to pathology report for histologic analysis. Reviewed, dictated and finalized at Location [facility]. Reviewed, dictated and finalized at location A. IMPRESSION: 1. Successful ultrasound guided biopsy of superficial shadowing small 12:00 le ft breast mass with biopsy marker placement. Please refer to pathology report f or histologic analysis.
--- NOTE | ~2022-08-07 | MM_ITS ---
EXAMINATION: MM stereotactic bx LT, MM post biopsy diagnostic LT, MM stereotactic specimen LT, Specim en Radiograph, Tissue Marker Clip Placement, Unilateral Mammogram DATE: 08/07/2022 12:15 INDICATION: Abnormal mammogram: Upper outer quadrant microcalcifications. TECHNIQUE AND FINDINGS: The risks and potential benefits of the procedure were discussed with the patient and written informe d consent was obtained. Timeout procedure was performed. The patient was placed in the prone position on the dedicated stereotactic table with the left breast in lateral medial compression, and the area of interest was localized and targeted utilizing digital imaging with stereotaxis. After sterile preparation of the skin, 1% lidocaine was utilized for local anesthesia at the skin pun cture site and 1% lidocaine with epinephrine was utilized for deeper local anesthesia/is about the bi opsy site. A 9G BrightArch vacuum assisted biopsy needle was advanced to the level of the calcification o f interest from a lateral approach utilizing stereotactic guidance and a total of 12 tissue core biop sies were obtained. A specimen radiograph demonstrates that the calcifications of interest are included within the tissue cores. A tissue marker clip was then placed at the biopsy site. A digital mammographic exposure co nfirmed the successful deployment of the biopsy marker. The needle was removed and hemostasis was ac hieved. A sterile bandage was applied. The patient tolerated the procedure well and there is no siva dence of significant immediate complication. The patient was given verbal as well as written postpro cedural instructions prior to discharge from the department. Tissue cores were submitted to surgical pathology for histologic analysis. A 2-view left unilateral digital mammogram was obtained post procedure, demonstrating the tissue jay er clip in expected position. IMPRESSION: 1. Successful stereotactic biopsy of upper outer quadrant left microcalcifications, followed by tis destiney marker clip placement. Please refer to pathology report for histologic analysis. Reviewed, dictated and finalized at Location A. Reviewed, dictated and finalized at location A. IMPRESSION: 1. Successful stereotactic biopsy of upper outer quadrant left microcalcifica tions, followed by tissue marker clip placement. Please refer to pathology rep ort for histologic analysis. IMPRESSION: 1. Successful stereotactic biopsy of upper outer quadrant left microcalcifica tions, followed by tissue marker clip placement. Please refer to pathology rep ort for histologic analysis.
== END 2022-08-07 10:03 | disposition home or self-care (01) ==
PROVIDERS: PCP Internal Medicine; Visit Provider Internal Medicine
DX: R92.8 Other abnormal and inconclusive findings on diagnostic imaging of breast (principal); E11.69 Type 2 diabetes mellitus with other specified complication; M25.511 Pain in right shoulder; M54.50 Low back pain, unspecified
CPT/HCPCS: 19081; 19083; 77065; 88305; A4648

== ENCOUNTER 2022-08-19 11:28 | Outpatient (CLI) | payer MEDICARE, SELFPAY ==
[2022-08-19 12:21] LABS: Alanine Aminotransferase 28 U/L (6-35)
[2022-08-19 12:25] LABS: Appearance Urine Clear (Clear); Bacteria Urine None Seen /hpf; Bilirubin Urine Negative (Negative); Blood Urine Negative (Negative); Color Urine Dark Yellow (Yellow); Glucose Urine UA Negative (Negative); Ketones Urine Trace mg/dL (Negative); Leukocyte Esterase Ur Trace LEU/UL (Negative); Need Manual Microscopic Reviewed; Nitrate Urine Negative (Negative); Protein Urine 2+ mg/dL (Negative); RBC Urine 0-2 /hpf (0-2); Specific Grav Ur 1.032 (1.001-1.035); Squamous Epithelial Cell Urine Moderate /hpf (Few); WBC Urine 0-5 /hpf; pH Urine 5.5 (5.0-9.0)
[2022-08-19 12:28] LABS: Add Urine Microscopic? YES
[2022-08-19 12:59] LABS: Free T4 Free Thyroxine 1.21 ng/mL (0.78-2.19); Vitamin D 25 Hydroxy 88.6 ng/mL
[2022-08-22 11:59] LABS: Mitochondrial (M2) Ab (IgG) <=20.0 U (<=20.0)
== END 2022-08-19 11:29 | disposition home or self-care (01) ==
PROVIDERS: PCP Internal Medicine; Visit Provider Internal Medicine
DX: K76.0 Fatty (change of) liver, not elsewhere classified (principal); R53.1 Weakness; R79.89 Other specified abnormal findings of blood chemistry; R53.81 Other malaise; E03.9 Hypothyroidism, unspecified; R30.0 Dysuria; E55.9 Vitamin D deficiency, unspecified
CPT/HCPCS: 36415; 81001; 82306; 83520; 84439; 84443; 84460; 86038; 87086

== ENCOUNTER 2022-10-04 02:58 | Day surgery (SDC) | payer MEDICARE, SELFPAY ==
[2022-09-23 10:50] VITALS: BMI 34.3
[2022-10-04 10:23] VITALS: BP 134/82; PULSE 67; RESP 18; TEMP 36; O2SAT 96
[2022-10-04] MEDS: LACTATED RINGERS 1,000 ML 150 ML IV CONT (10:37)
[2022-10-04 10:39] LABS: Glucose Point of Care 98 mg/dl (65-105)
--- NOTE | 2022-10-04 10:43 | WPDANESEPPF ---
Anes - Initial Pre Proc Eval Procedure: Operation Date: 10/04/22 11:30 Proposed Procedures p Esophagogastroduodenoscopy - Brown [facility] MD Date/Time: 10/04/22 10:43 Surgeon: Brown St MD Pre Op Diagnosis: Upper Abdominal pain Patient Data Age: 76 Gender: F Height: 1.7 m Weight: 89 kg Last Vital Signs Temp 96.8 F L 10/04/22 10:23 Pulse 67 10/04/22 10:23 Resp 18 10/04/22 10:23 BP 134/82 10/04/22 10:23 Pulse Ox 96 10/04/22 10:23 O2 Del Method Room Air 10/04/22 10:23 Allergies Allergy/AdvReac Type Severity Reaction Status Date / Time adhesive tape Allergy Intermediate Rash Verified 10/04/22 10:19 Iodinated Contrast Media Allergy Mild Hives Verified 10/04/22 10:19 codeine Allergy Unknown Hallucinati Verified 10/04/22 10:19 ng iodine Allergy Unknown Hives Verified 10/04/22 10:19 morphine Allergy Unknown Hallucinati Verified 10/04/22 10:19 ng Home Medications Medication Instructions Recorded Confirmed Type aspirin 81 mg tablet,delayed 81 mg PO DAILY 03/09/19 10/04/22 History release (Adult Low Dose Aspirin) cyanocobalamin (vitamin B-12) 1,000 mcg PO QPM 10/25/20 10/04/22 History 1,000 mcg tablet (Vitamin B-12) lorazepam 0.5 mg tablet (Ativan) 0.5 mg PO BID PRN anxiety #30 tabs 09/18/21 10/04/22 Rx ascorbic acid (vitamin C) 1,000 mg 2 g PO QPM 10/03/21 10/04/22 History tablet biotin 300 mg BYMOUTH DAILY 10/03/21 10/04/22 History nitroglycerin 0.4 mg sublingual 0.4 mg sublingual Q5M PRN chest 10/03/21 10/04/22 Rx tablet pain #25 tabs Glucosamine [place] 1,000 mg BYMOUTH BID 01/26/22 10/04/22 History beet root 2,000 mg BYMOUTH DAILY 01/26/22 10/04/22 History cholecalciferol (vitamin D3) 25 2,000 unit PO DAILY 01/26/22 10/04/22 History mcg (1,000 unit) tablet omega-3 fatty acids 1,000 mg 1,000 mg PO QPM 01/26/22 10/04/22 History capsule turmeric 1,000 mg BYMOUTH DAILY 01/26/22 10/04/22 History furosemide 40 mg tablet 40 mg PO DAILY PRN weight gain #30 01/29/22 10/04/22 Rx tabs potassium chloride 10 mEq 10 meq PO DAILY #30 caps 02/07/22 10/04/22 Rx capsule,extended release metformin 500 mg tablet,extended See Rx Instructions .Route 02/14/22 10/04/22 Rx release 24 hr .COMPLEX #360 tabs gabapentin 100 mg capsule 200 mg PO TID 02/28/22 10/04/22 History tramadol 50 mg tablet See Rx Instructions .Route 05/21/22 10/04/22 Rx .COMPLEX #120 tabs hydrocodone 5 mg-acetaminophen 325 1 tablet PO Q6H PRN pain #60 tabs 06/11/22 10/04/22 Rx mg tablet ondansetron 8 mg disintegrating 8 mg PO Q12H PRN nausea and 07/01/22 10/04/22 Rx tablet vomiting #30 tabs pantoprazole 40 mg tablet,delayed 40 mg PO BID #60 tabs 07/01/22 10/04/22 Rx release (Protonix) sucralfate 1 gram tablet 2 g PO BIDWM #120 tabs 07/01/22 10/04/22 Rx bupropion HCl 300 mg 24 hr tablet, See Rx Instructions .Route 07/08/22 10/04/22 Rx extended release .COMPLEX #90 tabs montelukast 10 mg tablet See Rx Instructions .Route 07/08/22 10/04/22 Rx .COMPLEX #90 tabs blood sugar diagnostic (FreeStyle #100 ea 07/11/22 10/04/22 Rx Test strips) levothyroxine 150 mcg tablet 150 mcg PO DAILY #90 tabs 07/15/22 10/04/22 Rx metoprolol succinate 25 mg 12.5 mg PO DAILY #90 tabs 07/15/22 10/04/22 Rx tablet,extended release 24 hr clopidogrel 75 mg tablet 75 mg PO DAILY 07/26/22 10/04/22 History levothyroxine 50 mcg tablet See Rx Instructions .Route 08/21/22 10/04/22 Rx .COMPLEX #90 tabs escitalopram oxalate 20 mg tablet See Rx Instructions .Route 09/16/22 10/04/22 Rx .COMPLEX #90 tabs rosuvastatin 40 mg tablet See Rx Instructions .Route 10/02/22 10/04/22 Rx .COMPLEX #90 tabs Laboratory Tests 10/04/22 10:33 POC Capillary Glucose 98 mg/dl (65-105) Patient hx anesthesia problems: none Family hx anesthesia problems: none Results Review: All pre-operative results and documents have been reviewed as part of the pre-operative evaluation. [facility]
--- NOTE | 2022-10-04 10:45 | PM.HPGS ---
History of Present Illness History of Present Illness Consent: Risks, benefits, and alternatives have been discussed and questions answered. Patient agrees to proceed with procedure. Chief complaint: Upper Abdominal pain Narrative: Allyson Tello is a 76 year old female Presents for EGD. For several months patient has had upper abdominal discomfort. Initially given Protonix 40mg p.o. b.i.d. this failed to improve. More recently is taking Carafate as a supplement to this and pain has gradually improved since that time. She states over the last month has had no particular discomfort. She has difficulty describing the pain sometimes described as a hunger pain sometimes better with eating. But not specifically are consistently so. Patient presents today for EGD to evaluate more thoroughly. Review of Systems Review of Systems: Review of systems noncontributory. [facility] Past Medical History Medical History Abnormal chest x-ray Anxiety with depression Back pain Bilateral shoulder pain BMI 30.0-30.9,adult BMI 31.0-31.9,adult Bruit Chest tightness CHF (congestive heart failure) Chronic back pain Chronic kidney disease Chronic pain Coronary artery disease [place] in 2010 status post stent x2. Degenerative joint disease Elevated LFTs Encounter for routine adult health examination with abnormal findings Familial tremor Fatty liver Fibromyalgia Hearing loss Heart failure of unknown type Hyperlipidemia Hypertension Hypothyroidism Hypoxia Impacted cerumen of both ears Left bundle branch block Left hip pain Olecranon bursitis of left elbow Persistent headaches Pneumonia Polymyalgia rheumatica Suspected chronic obstructive pulmonary disease based on initial evaluation Thyroid cancer Type 2 diabetes mellitus Vitamin D deficiency Surgical History Surgical History History of breast biopsy History of cholecystectomy History of colonoscopy with polypectomy History of coronary artery stent placement History of epidermal inclusion cyst excision Left neck. History of hysterectomy History of partial thyroidectomy Family History Family History Grandparent Diabetes mellitus Mother Hypertension Heart disease Ovarian cancer Father Malignant neoplasm of prostate Cerebrovascular accident Daughter Breast cancer Social History Social History Social History: The patient lives in [place] with her . They have 3 children. She lives in a single-story home and has a tub bench, straight cane, tall toilet, and walk-in shower. She is a former smoker, up to a pack a day, and quit about 25 years ago. No alcohol or illicit substance abuse. Surrogate medical decision maker: Allen Elisha, spouse. Code status: Full code. Smoking packs per day: 1 Smoking cigarettes per day: 20.0 Smoking status: Former smoker Tobacco type: cigarettes Second hand tobacco smoke exposure: Yes Alcohol intake: never Substance use: never Substance use type: does not use Lack of Transportation: No Lack of Food: Never True Current Housing: I Have Housing Concerned About Future Housing: No Difficulty Paying Gas/Electric Bills: No Difficulty Paying for Meds: No Currently Unemployed: No Difficulty w/ Childcare or Family Care: No Living arrangements: with family Gender identity (if verbalized by the patient): Female Spiritual care concerns: No Meds Home Medications and Allergies Home Medications Medication Instructions Recorded Confirmed Type aspirin 81 mg tablet,delayed 81 mg PO DAILY 03/09/19 10/04/22 History release (Adult Low Dose Aspirin) cyanocobalamin (vitamin B-12) 1,000 mcg PO QPM 10/25/20 10/04/22 History 1,000 mcg tablet (Vitamin B-12) staci
[2022-10-04 11:08] VITALS: BP 137/67; PULSE 66; RESP 20; O2SAT 98
[2022-10-04 11:18] VITALS: BP 134/70; PULSE 62; RESP 20; O2SAT 97
[2022-10-04 11:28] VITALS: BP 147/75; PULSE 64; RESP 20; O2SAT 98
== END 2022-10-04 11:41 | disposition home or self-care (01) ==
PROVIDERS: PCP Internal Medicine; Visit Provider Internal Medicine Gastroenterology
PROC: 0DJ08ZZ Inspection of Upper Intestinal Tract, Via Natural or Artificial Opening Endoscopic (ICD-10-PCS; CPT 43235; principal; 2022-10-04 11:30)
DX: K21.00 Gastro-esophageal reflux disease with esophagitis, without bleeding (principal); F41.8 Other specified anxiety disorders; I13.0 Hypertensive heart and chronic kidney disease with heart failure and stage 1 through stage 4 chronic kidney disease, or unspecified chronic kidney disease; I50.9 Heart failure, unspecified; E11.22 Type 2 diabetes mellitus with diabetic chronic kidney disease; N18.9 Chronic kidney disease, unspecified; I25.10 Atherosclerotic heart disease of native coronary artery without angina pectoris; I25.2 Old myocardial infarction; E89.0 Postprocedural hypothyroidism; K76.0 Fatty (change of) liver, not elsewhere classified; G25.0 Essential tremor; M79.7 Fibromyalgia; M35.3 Polymyalgia rheumatica; E55.9 Vitamin D deficiency, unspecified; Z95.5 Presence of coronary angioplasty implant and graft; Z79.82 Long term (current) use of aspirin; Z79.84 Long term (current) use of oral hypoglycemic drugs; Z79.891 Long term (current) use of opiate analgesic; Z79.02 Long term (current) use of antithrombotics/antiplatelets; Z85.850 Personal history of malignant neoplasm of thyroid; Z87.891 Personal history of nicotine dependence; E66.9 Obesity, unspecified; Z68.30 Body mass index [BMI] 30.0-30.9, adult
CPT/HCPCS: 43239; 82948; 87081; J2704; J7120

== ENCOUNTER 2022-11-20 17:39 | Outpatient (CLI) | payer MEDICARE, SELFPAY ==
--- NOTE | ~2022-11-20 | XR_ITS ---
EXAMINATION: XR chest 2V Exam Date/Time: 11/20/2022 17:50 CDT HISTORY: Medial-right sided chest pain, cough x 1 week Comparison: 01/27/2022. RESULT: Lines, tubes, and devices: Cholecystectomy clips. Coronary artery stent. Lungs and pleura: Biapical pleural scarring. Peripheral left lower lung scar. Senescent change. No f ocal consolidation. Cardiomediastinal silhouette: Stable. Other: No acute osseous or upper abdominal finding. IMPRESSION: No acute cardiopulmonary process. Reviewed, dictated and finalized at location K.
[2022-11-20 18:43] LABS: Free T4 Free Thyroxine 0.99 ng/mL (0.78-2.19)
== END 2022-11-20 17:40 | disposition home or self-care (01) ==
PROVIDERS: PCP Internal Medicine; Visit Provider Internal Medicine
DX: E03.9 Hypothyroidism, unspecified (principal); R05.9 Cough, unspecified; R09.89 Other specified symptoms and signs involving the circulatory and respiratory systems
CPT/HCPCS: 36415; 71046; 84439; 84443

== ENCOUNTER 2022-12-07 11:40 | Observation (INO) | payer MEDICARE, SELFPAY ==
[2022-12-07] VITALS (7 sets, daily range): BP systolic 104–155; BP diastolic 65–96; PULSE 74–123; RESP 16–22; TEMP 36.5–37.1; O2SAT 92–98; BMI 29.9
--- NOTE | ~2022-12-07 | CT_ITS ---
EXAMINATION: CT brain wo con DATE: 12/08/2022 11:45 INDICATION: Confusion TECHNIQUE: Computed tomography (CT) of the head was performed without intravenous contrast. Sagittal and coronal reconstructions were performed. The mA was adjusted according to patient size. Iterative reconstruction technique was employed. The dose-length product was 605.33 mGy-cm. COMPARISON: None FINDINGS: No acute intracranial hemorrhage, acute infarction or abnormal extra axial fluid collection. There is moderate to severe scattered white matter hypoattenuation consistent with chronic small vessel ische marco disease. Symmetric prominence of the sulci consistent with mild age-appropriate diffuse cerebral volume loss. Ventricles are normal and symmetric. No mass/mass effect. Changes of bilateral intraocul ar lens replacement. The orbits and mastoid air cells are normal. Mild mucosal thickening the bilater al ethmoid sinuses. Intracranial calcified cerebral atherosclerosis is noted. IMPRESSION: 1. No acute intracranial process. 2. Age-related changes including mild diffuse volume loss and moderate to severe scattered white gabriel er hypoattenuation consistent with chronic small vessel ischemic disease. Reviewed, dictated and finalized at location A. IMPRESSION: 1. No acute intracranial process. 2. Age-related changes including mild diffuse volume loss and moderate to sever e scattered white matter hypoattenuation consistent with chronic small vessel i schemic disease.
--- NOTE | ~2022-12-07 | CT_ITS ---
EXAMINATION: CT abdomen pelvis wo con DATE: 12/07/2022 13:23 INDICATION: Abdominal pain TECHNIQUE: Computed tomography (CT) of the abdomen and pelvis was performed without intravenous contr ast. Automated exposure control and iterative reconstruction technique were employed. The dose-length product was 966.44 mGy-cm. COMPARISON: 10/25/2020 FINDINGS: Small bilateral posterior layering pleural effusions with minimal bilateral dependent and basilar ate lectasis. No pneumonia or pulmonary edema. Heart size is normal. Atherosclerotic coronary artery calc ifications. No pericardial effusion. Chronic dilation of the common bile duct measuring 1.6 cm in the current study likely related to prior cholecystectomy and sternotomy with cholecystectomy clips the gallbladder fossa. No evident obstructing stones, masses or intrahepatic biliary ductal dilation. Spl een, pancreas, bilateral adrenal glands and kidneys are normal. Moderate diverticulosis along the rehana cending and sigmoid colon without adjacent from trace stranding to suggest diverticulitis. Small yaima l and appendix are normal. Small fat-containing umbilical hernia. Bladder is normal. The uterus is no t identified and has likely been surgically resected. No free intraperitoneal gas or fluid. Severe lo wer lumbar spondylosis. IMPRESSION: 1. No acute intra-abdominal/pelvic process. 2. Diverticulosis. 3. Small fat-containing umbilical hernia. Reviewed, dictated and finalized at location A.
--- NOTE | ~2022-12-07 | XR_ITS ---
Portable chest x-ray Comparison: 11/20/2022 Clinical History: Weakness Findings: There is possible minimal interstitial edema. No consolidation or pleural effusion otherwi se. Cardiomediastinal silhouette is stable. Bones and soft tissues are unremarkable. Impression: Suspected mild interstitial edema. Reviewed, dictated and finalized at [facility]. Impression: Suspected mild interstitial edema.
--- NOTE | 2022-12-07 12:14 | ED.GENADULT ---
HPI - General Adult General Chief complaint: Weakness Stated complaint: weakness Time Seen by Provider: 12/07/22 12:13 Source: patient and family Mode of arrival: ambulatory Limitations: no limitations History of Present Illness HPI narrative: 77 years old white female came to the emergency room by private car with her who is telling me that patient been not feeling well and have no energy over the last 2 days. Poor p.o. intake. Patient normally uses a walker/cane, did not take her medication today, last p.o. intake was last night. Currently patient main complaint is general weakness and intermittent abdominal pain. History of diabetes, hypertension, hyperlipidemia, hypothyroidism, fibromyalgia, anxiety, depression, polymyalgia rheumatica coronary stents. Patient on antiplatelet medication, tramadol, lorazepam, full code. Last time was seen by her family physician on November 25, 2022 and her main complaint at that time was fatigue and general weakness. Status post SI joint injection through pain management Related Data Home Medications Medication Instructions Recorded Confirmed aspirin 81 mg tablet,delayed 81 mg PO DAILY 03/09/19 11/28/22 release (Adult Low Dose Aspirin) cyanocobalamin (vitamin B-12) 1,000 mcg PO QPM 10/25/20 11/28/22 1,000 mcg tablet (Vitamin B-12) ascorbic acid (vitamin C) 1,000 mg 2 g PO QPM 10/03/21 11/28/22 tablet biotin 300 mg BYMOUTH DAILY 10/03/21 11/28/22 Glucosamine [place] 1,000 mg BYMOUTH BID 01/26/22 11/28/22 beet root 2,000 mg BYMOUTH DAILY 01/26/22 11/28/22 cholecalciferol (vitamin D3) 25 2,000 unit PO DAILY 01/26/22 11/28/22 mcg (1,000 unit) tablet omega-3 fatty acids 1,000 mg 1,000 mg PO QPM 01/26/22 11/28/22 capsule turmeric 1,000 mg BYMOUTH DAILY 01/26/22 11/28/22 clopidogrel 75 mg tablet 75 mg PO DAILY 07/26/22 11/28/22 Allergies Allergy/AdvReac Type Severity Reaction Status Date / Time adhesive tape Allergy Intermediate Rash Verified 12/07/22 11:58 Iodinated Contrast Media Allergy Mild Hives Verified 12/07/22 11:58 codeine Allergy Unknown Hallucinati Verified 12/07/22 11:58 ng iodine Allergy Unknown Hives Verified 12/07/22 11:58 morphine Allergy Unknown Hallucinati Verified 12/07/22 11:58 ng Review of Systems Review of Systems: All systems reviewed & are unremarkable except as noted in HPI and below PMFSH Past Medical History Medical History Abnormal chest x-ray CHAD (acute kidney injury) Anxiety with depression Asthma exacerbation in COPD Back pain Bilateral shoulder pain BMI 30.0-30.9,adult BMI 31.0-31.9,adult Bruit Chest tightness CHF (congestive heart failure) Chronic back pain Chronic kidney disease Chronic pain Coronary artery disease [place] in 2010 status post stent x2. Degenerative joint disease Elevated LFTs Encounter for routine adult health examination with abnormal findings Familial tremor Fatty liver Fibromyalgia Hearing loss Heart failure of unknown type Hyperlipidemia Hypertension Hypothyroidism Hypoxia Impacted cerumen of both ears Left bundle branch block Left hip pain Left leg swelling Olecranon bursitis of left elbow Orthostatic hypotension Persistent headaches Pneumonia Polymyalgia rheumatica Right flank pain Suspected chronic obstructive pulmonary disease based on initial evaluation Thyroid cancer Type 2 diabetes mellitus Upper abdominal pain Vitamin D deficiency Surgical History Surgical History History of breast biopsy History of cholecystectomy History of colonoscopy with polypectomy History of coronary artery stent placement History of epidermal inclusion cyst excision Left neck. History of hysterectomy History of partial thyroidectomy Family History Family History Grandparent Diabetes mellitus Mother Hypertension Heart disease Ovari
--- NOTE | 2022-12-07 12:15 | ECG_ITS ---
Measurements Intervals [place] Rate: 75 P: 95 GA: 181 QRS: 5 QRSD: 147 T: 78 QT: 412 QTc: 463 Interpretive Statements SINUS RHYTHM LEFT BUNDLE BRANCH BLOCK [120+ ms QRS DURATION, 80+ ms Q/S IN V1/V2, 85+ ms R IN I/aVL/V5/V6] COMPARED TO ECG 01/26/2022 07:43:26 NO SIGNIFICANT CHANGES Electronically Signed On 12-07-2022 15:00:52 CDT by Lorena Kong M.D.
[2022-12-07 12:29] LABS: Basophils Absolute Auto 0.1 K/mm3 (0.0-0.1); Basophils Percent Auto 0.5 % (0.2-1.2); Eosinophils Absolute Auto 0.1 K/mm3 (0-0.3); Eosinophils Percent Auto 0.7 % (0-4.4); Hematocrit 41.2 % (37.0-47.0); Hemoglobin 13.1 g/dL (12.0-15.0); Immature Granulocyte Absolute 0.04 K/mm3 (0.00-0.031); Immature Granulocyte Percent A 0.3 % (0-0.5); Lymphocytes Absolute Auto 1.62 K/mm3 (0.9-3.2); Lymphocytes Percent Auto 13.8 % (18.3-44.2); Mean Corpuscular HGB Conc 31.8 g/dl (32-36); Mean Corpuscular Hemoglobin 27.4 pg (26-34); Mean Corpuscular Volume 86.2 fl (80-100); Mean Platelet Volume 9.2 fl (7.4-10.4); Monocytes Absolute Auto 0.9 K/mm3 (0.1-0.6); Neutrophils Percent Auto 76.7 % (45.5-73.1); Platelet Count Result 239 k/mm3 (150-375); Red Blood Count 4.78 M/mm3 (4.2-5.4); White Blood Count 11.7 K/mm3 (4.5-10.0)
[2022-12-07] MEDS: SODIUM CHLORIDE 0.9% IV 1,000 ML 999 ML IV CONT (12:38)
[2022-12-07 12:40] LABS: Lactic Acid Reflex 1.5 mmol/L (0.7-2.0)
[2022-12-07 12:41] LABS: Alanine Aminotransferase 28 U/L (6-35); Albumin Level 4.1 g/dL (3.5-5.1); Alkaline Phosphatase 100 U/L (38-126); Anion Gap 7 mmol/L (8-16); Aspartate Amino Transferase 26 U/L (14-36); Bilirubin,Total 1.9 mg/dL (0.2-1.3); Blood Urea Nitrogen 13 mg/dL (7-17); Calcium 9.6 mg/dL (8.4-10.2); Carbon Dioxide 28 mmol/L (22-30); Chloride 103 mmol/L (98-107); Estimated CRCL calculation 62 ml/min; Estimated Glomerular Filt Rate > 60; Glucose 156 mg/dL (65-110); Lipase 33 U/L (23-300); Potassium 3.9 mmol/L (3.4-5.0); Sodium 138 mmol/L (137-145)
[2022-12-07 12:49] LABS: Appearance Urine Cloudy (Clear); Bacteria Urine None Seen /hpf; Bilirubin Urine Negative (Negative); Blood Urine Negative (Negative); Color Urine Yellow (Yellow); Glucose Urine UA Negative (Negative); Ketones Urine Negative (Negative); Leukocyte Esterase Ur Negative LEU/UL (Negative); Need Manual Microscopic Reviewed; Nitrate Urine Negative (Negative); Non Pathogenic Casts 0-2; Protein Urine 1+ mg/dL (Negative); RBC Urine 0-2 /hpf (0-2); Specific Grav Ur 1.013 (1.001-1.035); Squamous Epithelial Cell Urine None seen /hpf (Few); Urobilinogen Urine 0.2 mg/dL (<2.0); WBC Urine 0-5 /hpf; pH Urine 5.5 (5.0-9.0)
[2022-12-07 12:50] LABS: Add Urine Microscopic? YES
[2022-12-07 12:50] LABS: INR 0.9; Partial Thromboplastin Time 23.9 SECONDS (22.3-36.8); Prothrombin Time 12.9 Seconds (11.1-14.7)
[2022-12-07 14:25] LABS: Alveolar/Arterial O2 Gradient 50.5 mmHg; Fractional Inspired Oxygen 21 %; Oxygen Content ABG 16.7 %vol (16.0-22.0); Oxygen Saturation ABG 93.1 % (95.0-100.0); PCO2 ABG 31.5 mmHg (35.0-45.0); PO2 ABG 61.5 mmHg (80.0-100.0); PO2 FiO2 Ratio Arterial Blood 2.93 %; Total Hemoglobin 13.2 g/dL (12.0-18.0); pH ABG 7.461 (7.350-7.450)
[2022-12-07 14:26] LABS: Device ROOM AIR; Modified Allen's Test Pass; Site Drawn RIGHT RADIAL
--- NOTE | 2022-12-07 15:31 | PM.IMHP ---
H&P: HPI History of Present Illness Date/Time: 12/07/22 15:31 Chief Complaint: Weakness Narrative: This is a 77-year-old female patient who was brought into the emergency room by her . The patient's stated that the patient has not been feeling very well and has not had any energy of the last 2 days. She has had poor oral intake. The patient will typically use her walker or cane but is having difficulty walking now. She did not take her medication today in she did not take in any oral intake since last night. Patient stated she has intermittent abdominal pain and generalized weakness. She has a history of hypothyroidism anxiety depression fibromyalgia rheumatica and coronary stents. The patient had been to her primary care doctor on November 25 of this year with her main complaint of fatigue and generalized weakness as well. The patient has had SI joint injections through Pain Management in the past. Her white count is 11.7. ABGs pH 7.461. CO2 is 31.5 PO2 61.5. Blood sugars were in the 100s. 147-180. Last A1c was 6.8 on 11/25/2022. Total bilirubin is 1.9 which was previously 1.5. Her urine is cloudy but is negative for UTI. Chest x-ray was read as suspected mild interstitial edema. Abdominal pelvis CT was read as the following1. No acute intra-abdominal/pelvic process. 2. Diverticulosis. 3. Small fat-containing umbilical hernia. The patient was given IV fluids and Zofran. The patient is being admitted to observation status on the date of service of 12/07/2022. Review of Systems Review of Systems: All systems reviewed & are unremarkable except as noted in HPI and below Constitutional: Constitutional: Reports as per HPI and Reports no additional constitutional complaints Eyes: Eyes: Reports as per HPI and Reports no additional eye complaints ENT: Reports system reviewed and no additional complaints, except as documented and Reports Normal hearing present Cardiovascular: Cardiovascular: Reports no additional cardiovascular complaints Respiratory: Respiratory: Reports no additional respiratory complaints and Reports no additional respiratory complaints Gastrointestinal: Gastrointestinal: Reports as per HPI and Reports no additional gastrointestinal complaints Musculoskeletal: Musculoskeletal: Reports no additional musculoskeletal complaints Integumentary/Breasts: Skin/Breast: Reports system reviewed and no additional complaints, except as docu and Reports as per HPI Neurologic: Reports system reviewed and no additional complaints, except as documented, Reports as per HPI and Reports Normal hearing present Psychiatric: Psychiatric: Reports no additional psychiatric complaints and Reports as per HPI Endocrine: Endocrine: Reports no additional endocrine complaints Hematologic/Lymphatic: Hematologic/Lymphatic: Reports no additional hematologic/lymphatic complaints Allergic/Immunologic: Allergic/Immunologic: Reports no additional allergic/immunologic complaints [facility] Past Medical History Medical History Abnormal chest x-ray CHAD (acute kidney injury) Anxiety with depression Asthma exacerbation in COPD Back pain Bilateral shoulder pain BMI 30.0-30.9,adult BMI 31.0-31.9,adult Bruit Chest tightness CHF (congestive heart failure) Chronic back pain Chronic kidney disease Chronic pain Coronary artery disease [place] in 2010 status post stent x2. Degenerative joint disease Elevated LFTs Encounter for routine adult health examination with abnormal findings Familial tremor Fatty liver Fibromyalgia Hearing loss Heart failure of unknown type Hyperlipidemia Hypertension Hypothyroidism Hypoxia Impacted cerumen of both ears Left bundle branch block Left hip pain Left leg swelling Olecranon bursitis of left elbow Orthostatic hypotension Persistent headaches Pneumonia Polymyalgia rheumatica Right flank pain Suspected chronic obstructive pulmonary disease
--- NOTE | 2022-12-07 17:10 | ADMGEN ---
This patient, Allyson Tello, was admitted to [facility] Surg Room 304-02. Patient/family oriented to hospital policies and general routines including ID bracelet, bed and alarms, visiting hours, pain management, procedures, bathroom and other care routines, personal items, smoking policy, room service/diet, and visiting hours. Information on how to activate the Rapid Response Team has been discussed. Patient/Family are encouraged to report perceived risks to care and to ask questions if they do not understand what they are told or what they should do.
[2022-12-07 17:20] LABS: Glucose Point of Care 147 mg/dl (65-105)
[2022-12-07] MEDS: SODIUM CHLORIDE 0.9% IV 1,000 ML 125 ML IV CONT (17:46)
[2022-12-07 20:45] LABS: Glucose Point of Care 180 mg/dl (65-105)
[2022-12-07] MEDS: ONDANSETRON INJ 4 MG/2 ML VIAL IV PUSH (21:09)
[2022-12-07] MEDS: ACETAMINOPHEN 325 MG TABLET 650 MG PO (22:58)
[2022-12-07 23:35] LABS: Influenza A QL RT-PCR Negative (Negative); Influenza B QL RT-PCR Negative (Negative); SARS-CoV-2 RNA PCR Negative (Negative)
[2022-12-08] MEDS: SODIUM CHLORIDE 0.9% IV 1,000 ML 125 ML IV CONT (01:21)
[2022-12-08] MEDS: LEVOTHYROXINE SODIUM 100 MCG TABLET PO (05:37)
[2022-12-08] MEDS: LEVOTHYROXINE SODIUM 150 MCG TABLET PO (05:37)
[2022-12-08 06:00] VITALS: BP 109/84; PULSE 82; RESP 20; TEMP 35.6; O2SAT 99
[2022-12-08 06:24] LABS: Basophils Absolute Auto 0.1 K/mm3 (0.0-0.1); Basophils Percent Auto 0.5 % (0.2-1.2); Eosinophils Percent Auto 0.3 % (0-4.4); Hematocrit 38.7 % (37.0-47.0); Immature Granulocyte Absolute 0.04 K/mm3 (0.00-0.031); Immature Granulocyte Percent A 0.4 % (0-0.5); Immature Platelet Fraction Pct 3.1 % (0.9-11.2); Lymphocytes Absolute Auto 2.25 K/mm3 (0.9-3.2); Lymphocytes Percent Auto 22.6 % (18.3-44.2); Mean Corpuscular Hemoglobin 27.7 pg (26-34); Mean Corpuscular Volume 89.4 fl (80-100); Monocytes Absolute Auto 1.1 K/mm3 (0.1-0.6); Monocytes Percent Auto 11.3 % (2.6-8.5); Neutrophils Absolute Auto 6.5 K/mm3 (1.3-6.7); Neutrophils Percent Auto 64.9 % (45.5-73.1); Platelet Count Result 220 k/mm3 (150-375); Red Blood Count 4.33 M/mm3 (4.2-5.4)
[2022-12-08 06:37] LABS: Alanine Aminotransferase 20 U/L (6-35); Albumin Level 3.6 g/dL (3.5-5.1); Alkaline Phosphatase 71 U/L (38-126); Anion Gap 6 mmol/L (8-16); Aspartate Amino Transferase 18 U/L (14-36); Bilirubin,Total 2.1 mg/dL (0.2-1.3); Blood Urea Nitrogen 11 mg/dL (7-17); Calcium 8.9 mg/dL (8.4-10.2); Carbon Dioxide 20 mmol/L (22-30); Chloride 107 mmol/L (98-107); Estimated CRCL calculation 67 ml/min; Estimated Glomerular Filt Rate > 60; Glucose 124 mg/dL (65-110); Lipase 23 U/L (23-300); Magnesium 1.9 mg/dL (1.6-2.3); Potassium 3.5 mmol/L (3.4-5.0); Sodium 133 mmol/L (137-145)
[2022-12-08 06:46] LABS: Lactic Acid Reflex 1.2 mmol/L (0.7-2.0)
[2022-12-08 07:53] LABS: Glucose Point of Care 155 mg/dl (65-105)
[2022-12-08 08:11] LABS: Thyroid Stimulating Hormone Reflex 0.025 uIU/mL (0.465-4.68)
[2022-12-08 09:18] VITALS: O2SAT 91
[2022-12-08] MEDS: CHOLECALCIFEROL 1,000 UNITS TABLET 2000 UNITS PO (09:39)
[2022-12-08 09:40] VITALS: PULSE 80
[2022-12-08] MEDS: METOPROLOL SUCCINATE EXT REL 25 MG TABCR PO (09:40)
[2022-12-08] MEDS: PANTOPRAZOLE 40 MG TABLET PO ×2 (09:40→20:06)
[2022-12-08] MEDS: ESCITALOPRAM OXALATE 10 MG TABLET 20 MG PO (09:40)
[2022-12-08] MEDS: GLIMEPIRIDE 1 MG TABLET PO (09:40)
[2022-12-08] MEDS: POTASSIUM CHLORIDE 10 MEQ ER TABLET PO (09:41)
[2022-12-08] MEDS: ENOXAPARIN 40 MG/0.4 ML SYRINGE SUB-Q (09:41)
[2022-12-08] MEDS: GABAPENTIN 300 MG CAPSULE PO (09:41)
[2022-12-08] MEDS: ASPIRIN 81 MG ENTERIC TABLET PO (09:43)
[2022-12-08 10:25] LABS: Free T4 Free Thyroxine Reflex 5.09 ng/dL (0.78-2.19)
[2022-12-08] MEDS: SODIUM CHLORIDE 0.9% IV 1,000 ML 75 ML IV CONT (11:15)
--- NOTE | 2022-12-08 11:45 | PM.IMPN ---
Progress Note: A&P Assessment and Plan (1) Weakness generalized: Code(s): R53.1 - Weakness Status: Acute Assessment and Plan: PT and OT evaluation greatly be appreciated. Will get a CT of her brain as well. Patient is not eating well. Continue IV fluids until she starts eating. Hold off on tramadol and gabapentin because of dizziness (2) Chronic back pain: Code(s): M54.9 - Dorsalgia, unspecified; G89.29 - Other chronic pain Status: Acute Assessment and Plan: The patient goes to pain management for injections to her SI joints. (3) Fibromyalgia: Code(s): M79.7 - Fibromyalgia Status: Acute Assessment and Plan: Tylenol for pain control (4) CHF (congestive heart failure): Code(s): I50.9 - Heart failure, unspecified Status: Acute Assessment and Plan: Last echo was . Left ventricular chamber dimension is normal. ? 2. Left ventricular systolic function is normal, estimated at 55-60%. ? 3. There is no increased left ventricular wall thickness. ? 4. Left ventricular septal wall motion is abnormal with septal motion related to bundle branch block. ? 5. The left ventricular diastolic function is grade I diastolic dysfunction. ? 6. Left atrial chamber dimension is mildly enlarged. ? 7. There is mild aortic valve regurgitation. ? 8. There is mild aortic valve calcification. ? 9. There is mild tricuspid valve regurgitation. ? 10. Moderate pulmonary hypertension, estimated pulmonary arterial systolic pressure is 49 mmHg. Continue with metoprolol (5) Coronary artery disease: Code(s): I25.10 - Atherosclerotic heart disease of [place] coronary artery without angina pectoris Status: Acute Assessment and Plan: Continue with aspirin, metoprolol, and Crestor (6) Polymyalgia rheumatica: Code(s): M35.3 - Polymyalgia rheumatica Status: Acute Assessment and Plan: PT OT evaluation greatly be appreciated. (7) Type 2 diabetes mellitus: Code(s): E11.9 - Type 2 diabetes mellitus without complications Status: Acute Assessment and Plan: Hold amaryl to prevent hypoglycemia. Accu-Cheks AC and HS with sliding scale insulin. (8) Hyperlipidemia: Qualifiers: Hyperlipidemia type: mixed hyperlipidemia Qualified Code(s): E78.2 - Mixed hyperlipidemia Code(s): E78.5 - Hyperlipidemia, unspecified Status: Acute Assessment and Plan: Continue with Crestor (9) Hypothyroidism: Qualifiers: Hypothyroidism type: unspecified Qualified Code(s): E03.9 - Hypothyroidism, unspecified Code(s): E03.9 - Hypothyroidism, unspecified Status: Chronic Assessment and Plan: Patient is hyperthyroid based on her thyroid level. She is taking 250 mcg of levothyroxine. Not sure if that is the current dose. Last refill was 100 mcg levothyroxine in November. Hold off on levothyroxine for now Subjective Date/time seen: 12/08/22 11:45 Interval history: Patient has significant weakness and dizziness Review of Systems Review of Systems: All systems reviewed & are unremarkable except as noted in HPI and below Constitutional: Constitutional: Reports as per HPI and Reports no additional constitutional complaints Eyes: Eyes: Reports as per HPI and Reports no additional eye complaints ENT: Reports system reviewed and no additional complaints, except as documented and Reports Normal hearing present Cardiovascular: Cardiovascular: Reports no additional cardiovascular complaints Respiratory: Respiratory: Reports no additional respiratory complaints and Reports no additional respiratory complaints Gastrointestinal: Gastrointestinal: Reports as per HPI and Reports no additional gastrointestinal complaints Musculoskeletal: Musculoskeletal: Reports no additional musculoskeletal complaints Integumentary/Breasts: Skin/Breast: Reports system reviewed and no additional complaints, exc
[2022-12-08 11:54] LABS: Glucose Point of Care 114 mg/dl (65-105)
[2022-12-08 14:00] VITALS: BP 112/87; PULSE 86; RESP 20; TEMP 36.9; O2SAT 92
--- NOTE | 2022-12-08 15:35 | PCPTNOTE ---
patient has bedrest orders, called Dr. Rawls to cnacel them, no answer left voicemail at [phone].
[2022-12-08 16:46] LABS: Glucose Point of Care 116 mg/dl (65-105)
[2022-12-08] MEDS: MONTELUKAST SODIUM 10 MG TABLET PO (17:53)
[2022-12-08] MEDS: OMEGA 3 POLYUNSAT FATTY ACIDS 1 GM CAP PO (17:53)
[2022-12-08] MEDS: CYANOCOBALAMIN 1,000 MCG TABLET 1000 MCG PO (17:53)
[2022-12-08] MEDS: ROSUVASTATIN 20 MG TABLET 40 MG PO (20:06)
[2022-12-08 20:39] LABS: Glucose Point of Care 162 mg/dl (65-105)
[2022-12-08] MEDS: ACETAMINOPHEN 325 MG TABLET 650 MG PO (21:38)
[2022-12-08 21:45] VITALS: O2SAT 95
[2022-12-08 21:47] VITALS: BP 146/61; PULSE 100; RESP 18; TEMP 37.6; O2SAT 95
[2022-12-09] MEDS: ONDANSETRON HCL ODT 4 MG TABLET 8 MG PO (03:33)
[2022-12-09] MEDS: SODIUM CHLORIDE 0.9% IV 1,000 ML 75 ML IV CONT (03:34)
[2022-12-09] MEDS: ACETAMINOPHEN 325 MG TABLET 650 MG PO ×2 (03:36→20:31)
[2022-12-09 06:00] VITALS: BP 139/63; PULSE 94; RESP 20; TEMP 36.7; O2SAT 92
[2022-12-09 06:40] LABS: Anion Gap 7 mmol/L (8-16); Blood Urea Nitrogen 10 mg/dL (7-17); Calcium 8.4 mg/dL (8.4-10.2); Carbon Dioxide 25 mmol/L (22-30); Chloride 105 mmol/L (98-107); Estimated CRCL calculation 67 ml/min; Estimated Glomerular Filt Rate > 60; Glucose 148 mg/dL (65-110); Potassium 3.2 mmol/L (3.4-5.0); Sodium 137 mmol/L (137-145)
[2022-12-09 07:43] LABS: Glucose Point of Care 150 mg/dl (65-105)
--- NOTE | 2022-12-09 08:44 | PCPTNOTE ---
Attempted PT evaluation. Pt refused stating she is feeling nauseous. RN aware. Will follow.
[2022-12-09] MEDS: CHOLECALCIFEROL 1,000 UNITS TABLET 2000 UNITS PO (08:56)
[2022-12-09 08:57] VITALS: PULSE 106
[2022-12-09] MEDS: METOPROLOL SUCCINATE EXT REL 25 MG TABCR PO (08:57)
[2022-12-09] MEDS: PANTOPRAZOLE 40 MG TABLET PO ×2 (08:57→20:31)
[2022-12-09] MEDS: ESCITALOPRAM OXALATE 10 MG TABLET 20 MG PO (08:57)
[2022-12-09] MEDS: ENOXAPARIN 40 MG/0.4 ML SYRINGE SUB-Q (08:58)
[2022-12-09 09:00] VITALS: O2SAT 96
[2022-12-09] MEDS: POTASSIUM CHLORIDE 20 MEQ ER TABLET 40 MEQ PO (09:03)
[2022-12-09] MEDS: ASPIRIN 81 MG ENTERIC TABLET PO (09:13)
--- NOTE | 2022-12-09 10:40 | PM.IMPN ---
Progress Note: A&P Assessment and Plan (1) Weakness generalized: Code(s): R53.1 - Weakness Status: Acute Assessment and Plan: PT and OT evaluation pending. CT head negative. Discontinue IV fluids (2) Chronic back pain: Code(s): M54.9 - Dorsalgia, unspecified; G89.29 - Other chronic pain Status: Acute Assessment and Plan: The patient goes to pain management for injections to her SI joints. (3) Fibromyalgia: Code(s): M79.7 - Fibromyalgia Status: Acute Assessment and Plan: Tylenol for pain control (4) CHF (congestive heart failure): Code(s): I50.9 - Heart failure, unspecified Status: Acute Assessment and Plan: Last echo was . Left ventricular chamber dimension is normal. ? 2. Left ventricular systolic function is normal, estimated at 55-60%. ? 3. There is no increased left ventricular wall thickness. ? 4. Left ventricular septal wall motion is abnormal with septal motion related to bundle branch block. ? 5. The left ventricular diastolic function is grade I diastolic dysfunction. ? 6. Left atrial chamber dimension is mildly enlarged. ? 7. There is mild aortic valve regurgitation. ? 8. There is mild aortic valve calcification. ? 9. There is mild tricuspid valve regurgitation. ? 10. Moderate pulmonary hypertension, estimated pulmonary arterial systolic pressure is 49 mmHg. Continue with metoprolol (5) Coronary artery disease: Code(s): I25.10 - Atherosclerotic heart disease of [place] coronary artery without angina pectoris Status: Acute Assessment and Plan: Continue with aspirin, metoprolol, and Crestor (6) Type 2 diabetes mellitus: Code(s): E11.9 - Type 2 diabetes mellitus without complications Status: Acute Assessment and Plan: Hold amaryl to prevent hypoglycemia. Accu-Cheks AC and HS with sliding scale insulin. (7) Hyperlipidemia: Qualifiers: Hyperlipidemia type: mixed hyperlipidemia Qualified Code(s): E78.2 - Mixed hyperlipidemia Code(s): E78.5 - Hyperlipidemia, unspecified Status: Acute Assessment and Plan: Continue with Crestor (8) Hypothyroidism: Qualifiers: Hypothyroidism type: unspecified Qualified Code(s): E03.9 - Hypothyroidism, unspecified Code(s): E03.9 - Hypothyroidism, unspecified Status: Chronic Assessment and Plan: Patient is hyperthyroid based on her thyroid level. She is taking 250 mcg of levothyroxine. Not sure if that is the current dose. Last refill was 100 mcg levothyroxine in November. Hold off on levothyroxine for now Subjective Date/time seen: 12/09/22 10:40 Interval history: Reports weakness. Declined PT this morning Review of Systems Review of Systems: All systems reviewed & are unremarkable except as noted in HPI and below Exam Const: General: cooperative and comfortable Orientation/consciousness: patient oriented x3 HENMT: Head: normal to inspection Mouth: Yes Normal oral and palatal mucosa present Eyes: General: appearance normal, both eyes and all related structures Resp: Effort & Inspection: normal respiratory effort Auscultation: clear to auscultation bilaterally Cardio: Rate: regular rate Rhythm: regular rhythm Heart sounds: S1 normal heart sound present and S2 normal heart sound present GI: GI Palp: Yes Soft to palpation Auscultation: normal bowel sounds Skin: General skin exam: normal color and no rashes or lesions noted Neuro: General: patient oriented x3, no focal motor deficits and CN's II-XI intact bilaterally Speech: normal speech Extrem: General: full ROM Psych: Appearance: grossly normal Objective Data Vital Signs Vital Signs: Vital Signs - 24 hr 12/08/22 14:00 12/08/22 21:45 12/08/22 21:47 Temperature 98.4 F 99.6 F Pulse Rate 86 100 Respiratory Rate 20 18 Blood Pressure 112/87 146/61 H Pulse Oximetry 92 95 95 Oxygen Delivery Nasal Cannul
[2022-12-09 11:29] LABS: Glucose Point of Care 248 mg/dl (65-105)
[2022-12-09 11:37] VITALS: BMI 29.9
[2022-12-09] MEDS: ONDANSETRON INJ 4 MG/2 ML VIAL IV PUSH ×2 (11:55→20:32)
[2022-12-09] MEDS: INSULIN ASPART (*BKC) 100 UNITS/ML SUB-Q ×3 (12:21→20:38)
[2022-12-09 14:00] VITALS: BP 149/73; PULSE 93; RESP 16; TEMP 36.9; O2SAT 94
[2022-12-09 16:27] LABS: Glucose Point of Care 223 mg/dl (65-105)
[2022-12-09] MEDS: CYANOCOBALAMIN 1,000 MCG TABLET 1000 MCG PO (17:06)
[2022-12-09] MEDS: OMEGA 3 POLYUNSAT FATTY ACIDS 1 GM CAP PO (17:06)
[2022-12-09] MEDS: MONTELUKAST SODIUM 10 MG TABLET PO (17:06)
[2022-12-09] MEDS: ROSUVASTATIN 20 MG TABLET 40 MG PO (20:31)
[2022-12-09 21:10] LABS: Glucose Point of Care 231 mg/dl (65-105)
[2022-12-09 21:13] VITALS: BP 140/60; PULSE 91; RESP 20; TEMP 37; O2SAT 94
[2022-12-10] MEDS: ACETAMINOPHEN 325 MG TABLET 650 MG PO ×3 (04:15→20:28)
[2022-12-10] MEDS: ONDANSETRON INJ 4 MG/2 ML VIAL IV PUSH ×2 (04:15→20:28)
[2022-12-10 05:44] VITALS: BP 146/69; PULSE 114; RESP 18; TEMP 36.2; O2SAT 92
[2022-12-10 07:37] LABS: Glucose Point of Care 174 mg/dl (65-105)
[2022-12-10 09:58] VITALS: PULSE 80
[2022-12-10] MEDS: METOPROLOL SUCCINATE EXT REL 25 MG TABCR PO (09:58)
[2022-12-10] MEDS: ASPIRIN 81 MG ENTERIC TABLET PO (09:58)
[2022-12-10] MEDS: CHOLECALCIFEROL 1,000 UNITS TABLET 2000 UNITS PO (09:58)
[2022-12-10] MEDS: ESCITALOPRAM OXALATE 10 MG TABLET 20 MG PO (09:59)
[2022-12-10] MEDS: ENOXAPARIN 40 MG/0.4 ML SYRINGE SUB-Q (09:59)
[2022-12-10] MEDS: PANTOPRAZOLE 40 MG TABLET PO ×2 (09:59→20:27)
[2022-12-10] MEDS: POTASSIUM CHLORIDE 20 MEQ ER TABLET 40 MEQ PO (10:00)
--- NOTE | 2022-12-10 10:43 | PM.IMPN ---
Progress Note: A&P Assessment and Plan (1) Weakness generalized: Code(s): R53.1 - Weakness Status: Acute Assessment and Plan: Continue working with PT and OT. Patient will likely need rehab. reports analysis manager working on placement. CT head negative. (2) Chronic back pain: Code(s): M54.9 - Dorsalgia, unspecified; G89.29 - Other chronic pain Status: Acute Assessment and Plan: The patient goes to pain management for injections to her SI joints. (3) Fibromyalgia: Code(s): M79.7 - Fibromyalgia Status: Acute Assessment and Plan: Tylenol for pain control (4) CHF (congestive heart failure): Code(s): I50.9 - Heart failure, unspecified Status: Acute Assessment and Plan: Last echo was . Left ventricular chamber dimension is normal. ? 2. Left ventricular systolic function is normal, estimated at 55-60%. ? 3. There is no increased left ventricular wall thickness. ? 4. Left ventricular septal wall motion is abnormal with septal motion related to bundle branch block. ? 5. The left ventricular diastolic function is grade I diastolic dysfunction. ? 6. Left atrial chamber dimension is mildly enlarged. ? 7. There is mild aortic valve regurgitation. ? 8. There is mild aortic valve calcification. ? 9. There is mild tricuspid valve regurgitation. ? 10. Moderate pulmonary hypertension, estimated pulmonary arterial systolic pressure is 49 mmHg. Continue with metoprolol (5) Coronary artery disease: Code(s): I25.10 - Atherosclerotic heart disease of [place] coronary artery without angina pectoris Status: Acute Assessment and Plan: Continue with aspirin, metoprolol, and Crestor (6) Type 2 diabetes mellitus: Code(s): E11.9 - Type 2 diabetes mellitus without complications Status: Acute Assessment and Plan: Hold amaryl to prevent hypoglycemia. Accu-Cheks AC and HS with sliding scale insulin. (7) Hyperlipidemia: Qualifiers: Hyperlipidemia type: mixed hyperlipidemia Qualified Code(s): E78.2 - Mixed hyperlipidemia Code(s): E78.5 - Hyperlipidemia, unspecified Status: Acute Assessment and Plan: Continue with Crestor (8) Hypothyroidism: Qualifiers: Hypothyroidism type: unspecified Qualified Code(s): E03.9 - Hypothyroidism, unspecified Code(s): E03.9 - Hypothyroidism, unspecified Status: Chronic Assessment and Plan: Continue 250 mcg of levothyroxine to maintain hyperthyroid state. Verified with PCP Subjective Date/time seen: 12/10/22 10:43 Interval history: Patient feeling better today Review of Systems Review of Systems: All systems reviewed & are unremarkable except as noted in HPI and below Exam Const: General: cooperative and comfortable Orientation/consciousness: patient oriented x3 HENMT: Head: normal to inspection Mouth: Yes Normal oral and palatal mucosa present Eyes: General: appearance normal, both eyes and all related structures Resp: Effort & Inspection: normal respiratory effort Auscultation: clear to auscultation bilaterally Cardio: Rate: regular rate Rhythm: regular rhythm Heart sounds: S1 normal heart sound present and S2 normal heart sound present GI: GI Palp: Yes Soft to palpation Auscultation: normal bowel sounds Skin: General skin exam: normal color and no rashes or lesions noted Neuro: General: patient oriented x3, no focal motor deficits and CN's II-XI intact bilaterally Speech: normal speech Extrem: General: full ROM Psych: Appearance: grossly normal Objective Data Vital Signs Vital Signs: Vital Signs - 24 hr 12/09/22 13:13 12/09/22 14:00 12/09/22 14:56 Temperature 98.5 F Pulse Rate 93 Respiratory Rate 16 Blood Pressure 149/73 H Pulse Oximetry 94 Oxygen Delivery Non-Rebreather Mask Room Air Oxygen Flow Rate 1 12/09/22 21:13 12/09/22 20:00 12/10/22 05:44 Temperature 98.6 F 97
[2022-12-10 11:18] LABS: Glucose Point of Care 294 mg/dl (65-105)
[2022-12-10] MEDS: INSULIN ASPART (*BKC) 100 UNITS/ML SUB-Q ×2 (11:48→18:58)
[2022-12-10 14:00] VITALS: BP 130/60; PULSE 80; RESP 18; TEMP 36.6; O2SAT 93
[2022-12-10 16:34] LABS: Glucose Point of Care 255 mg/dl (65-105)
[2022-12-10] MEDS: OMEGA 3 POLYUNSAT FATTY ACIDS 1 GM CAP PO (18:59)
[2022-12-10] MEDS: MONTELUKAST SODIUM 10 MG TABLET PO (18:59)
[2022-12-10] MEDS: CYANOCOBALAMIN 1,000 MCG TABLET 1000 MCG PO (18:59)
[2022-12-10] MEDS: ROSUVASTATIN 20 MG TABLET 40 MG PO (20:27)
--- NOTE | 2022-12-10 20:32 | PC.NURSE ---
Pt is A&O4 female who has participated and contributed in plan of care. Pt and family are trying to decide next step for therapy. Pt family expresses concerns with insurance. Pt has been compliant with care. Pt has been monitored for any changes in status. Informed retail shift leader RN of pt report.
[2022-12-10 22:00] VITALS: BP 96/76; PULSE 75; RESP 16; TEMP 36.2; O2SAT 94
[2022-12-10 23:01] LABS: Glucose Point of Care 122 mg/dl (65-105)
[2022-12-11 06:00] VITALS: BP 154/93; PULSE 88; RESP 16; TEMP 36.4; O2SAT 94
[2022-12-11 08:27] LABS: Glucose Point of Care 169 mg/dl (65-105)
[2022-12-11 09:25] VITALS: PULSE 88
[2022-12-11] MEDS: ASPIRIN 81 MG ENTERIC TABLET PO (09:25)
[2022-12-11] MEDS: ESCITALOPRAM OXALATE 10 MG TABLET 20 MG PO (09:25)
[2022-12-11] MEDS: PANTOPRAZOLE 40 MG TABLET PO (09:25)
[2022-12-11] MEDS: METOPROLOL SUCCINATE EXT REL 25 MG TABCR PO (09:25)
[2022-12-11] MEDS: POTASSIUM CHLORIDE 20 MEQ ER TABLET 40 MEQ PO (09:25)
[2022-12-11] MEDS: CHOLECALCIFEROL 1,000 UNITS TABLET 2000 UNITS PO (09:25)
[2022-12-11] MEDS: ENOXAPARIN 40 MG/0.4 ML SYRINGE SUB-Q (09:26)
[2022-12-11] MEDS: ONDANSETRON INJ 4 MG/2 ML VIAL IV PUSH (09:27)
--- NOTE | 2022-12-11 10:39 | PM.DS ---
DS: Admitting Diagnosis Discharge Date 12/11/2022 Admitting Diagnosis Generalized weakness DS: Discharge Diagnosis Discharge Diagnosis (1) Weakness generalized: Code(s): R53.1 - Weakness Status: Acute (2) Fibromyalgia: Code(s): M79.7 - Fibromyalgia Status: Acute (3) CHF (congestive heart failure): Code(s): I50.9 - Heart failure, unspecified Status: Acute (4) Coronary artery disease: Code(s): I25.10 - Atherosclerotic heart disease of [place] coronary artery without angina pectoris Status: Acute (5) Polymyalgia rheumatica: Code(s): M35.3 - Polymyalgia rheumatica Status: Acute (6) Type 2 diabetes mellitus: Code(s): E11.9 - Type 2 diabetes mellitus without complications Status: Acute DS: Summary Hospital Course Hospital Course: 77-year-old female with a past medical history of thyroid cancer was admitted to the hospital with generalized weakness. Abdominal pelvis CT of the brain was negative for any acute findings. Patient has a history of fibromyalgia, polymyalgia rheumatica as well as depression. At the time of admission her thyroid exam showed hyperthyroid state but we discussed with her PCP who recommended to continue levothyroxine at the current dose of 250 mcg daily to continue her in hyperthyroid state because of her history of thyroid cancer. PT and OT were consulted. They recommended rehab but the patient family wants to go home with home health. Patient is being discharged home with home health. All labs and other tests were normal Time Spent with Patient Time attestation: Total time spent providing and/or coordinating discharge services: DS: Data Data Completed and Pending Labs on day of discharge: Labs from last 24 hours 12/11/22 12/10/22 12/10/22 08:10 22:58 16:28 POC Capillary Glucose 169 H 122 H 255 H 12/10/22 11:14 POC Capillary Glucose 294 H Discharge Plan Discharge Discharging Clinician: Quang Rawls Anticipated Discharge Date/Time: 12/11/22 10:38 Patient Disposition: Home Health Service Activity: no preference Diet: heart healthy Patient Instructions: Antibiotic Form Stand Alone Forms: General Discharge Information Follow-up/Referrals: Felix Powell MD [Primary Care Provider] - Discharge Medications: Continued aspirin [Adult Low Dose Aspirin] 81 mg tablet,delayed release (DR/EC) 81 mg PO DAILY potassium chloride 10 mEq capsule, extended release 10 meq PO DAILY Qty: 30 3RF biotin 300 mg BYMOUTH DAILY ascorbic acid (vitamin C) 1,000 mg tablet 1 g PO QPM nitroglycerin 0.4 mg tablet, sublingual 0.4 mg sublingual Q5M PRN (Reason: chest pain) Qty: 25 0RF Rx Instructions: do not exceed 3 doses per episode ondansetron 8 mg tablet,disintegrating 8 mg PO Q12H PRN (Reason: nausea and vomiting) Qty: 30 0RF pantoprazole [Protonix] 40 mg tablet,delayed release (DR/EC) 40 mg PO BID Qty: 60 5RF gabapentin 300 mg capsule 300 mg PO TID Qty: 90 3RF cyanocobalamin (vitamin B-12) [Vitamin B-12] 1,000 mcg Tablet 1,000 mcg PO QPM montelukast 10 mg tablet 10 mg PO 1700 metformin 500 mg tablet extended release 24 hr 1,000 mg PO BID escitalopram oxalate 20 mg tablet 20 mg PO DAILY rosuvastatin 40 mg tablet 40 mg PO HS metoprolol succinate 50 mg tablet extended release 24 hr 25 mg PO DAILY levothyroxine 150 mcg Tablet 150 mcg PO DAILY levothyroxine 100 mcg Tablet 100 mcg PO DAILY omega-3 fatty acids 1,000 mg Capsule 1,000 mg PO QPM beet root 2,000 mg BYMOUTH DAILY Rx Instructions: Take two tablets in the morning and one in the evening Glucosamine Chondroiton 1,000 mg BYMOUTH BID turmeric 1,000 mg BYMOUTH DAILY cholecalciferol (vitamin D3) 25 mcg (1,000 unit) Tablet 2,000 unit PO DAILY lorazepam [Ativan] 0.5 mg tablet
[2022-12-11 11:49] LABS: Glucose Point of Care 317 mg/dl (65-105)
--- NOTE | 2022-12-11 15:32 | PC.NURSE ---
Pt discharged home with . Pt had some nausea this morning and was treated with zofran. Pt reported feeling better. Pt was wheeled down to car upon discharge. Pt denies any need for pain medication. Pt was monitored for any changes in status while here.
== END 2022-12-11 12:00 | disposition home health service (06) ==
LOC: ANHED 15:23 → ANH3MEDSUR 16:42
PROVIDERS: Nurse Practitioner; Admitting Provider Family Medicine; Emergency Provider Emergency Medicine; PCP Internal Medicine; Visit Provider Hospitalist
DX: R53.1 Weakness (principal); M79.7 Fibromyalgia; I13.0 Hypertensive heart and chronic kidney disease with heart failure and stage 1 through stage 4 chronic kidney disease, or unspecified chronic kidney disease; E11.22 Type 2 diabetes mellitus with diabetic chronic kidney disease; N18.9 Chronic kidney disease, unspecified; I50.9 Heart failure, unspecified; I25.10 Atherosclerotic heart disease of native coronary artery without angina pectoris; Z95.5 Presence of coronary angioplasty implant and graft; Z20.822 Contact with and (suspected) exposure to COVID-19; R10.9 Unspecified abdominal pain; M35.3 Polymyalgia rheumatica; E11.65 Type 2 diabetes mellitus with hyperglycemia; R63.0 Anorexia; Z68.29 Body mass index [BMI] 29.0-29.9, adult; Z99.89 Dependence on other enabling machines and devices; N17.9 Acute kidney failure, unspecified; E78.2 Mixed hyperlipidemia; E03.9 Hypothyroidism, unspecified; R41.0 Disorientation, unspecified; I44.7 Left bundle-branch block, unspecified; E55.9 Vitamin D deficiency, unspecified; K57.90 Diverticulosis of intestine, part unspecified, without perforation or abscess without bleeding; K42.9 Umbilical hernia without obstruction or gangrene; Z90.49 Acquired absence of other specified parts of digestive tract; G89.29 Other chronic pain; M54.9 Dorsalgia, unspecified; K76.0 Fatty (change of) liver, not elsewhere classified; D72.829 Elevated white blood cell count, unspecified; F41.8 Other specified anxiety disorders; Z87.891 Personal history of nicotine dependence; Z79.02 Long term (current) use of antithrombotics/antiplatelets; Z79.891 Long term (current) use of opiate analgesic; Z79.82 Long term (current) use of aspirin; Z79.899 Other long term (current) drug therapy; Z83.3 Family history of diabetes mellitus; Z82.49 Family history of ischemic heart disease and other diseases of the circulatory system; Z82.3 Family history of stroke
CPT/HCPCS: 36415; 36600; 70450; 71045; 74176; 80048; 80053; 81001; 82805; 82948; 83605; 83690; 83735; 84439; 84443; 85025; 85055; 85610; 85730; 87636; 93005; 96361; 96372; 96374; 96376; 97110; 97116; 97161; 97165; 97530; 97535; 99285; A9270; G0378; J1650; J1815; J2405; J7030

== ENCOUNTER 2023-01-21 17:48 | Outpatient (CLI) | payer MEDICARE, SELFPAY ==
[2023-01-21 18:14] LABS: Anion Gap 8 mmol/L (8-16); Blood Urea Nitrogen 13 mg/dL (7-17); Calcium 9.1 mg/dL (8.4-10.2); Carbon Dioxide 25 mmol/L (22-30); Chloride 105 mmol/L (98-107); Estimated Glomerular Filt Rate > 60; Glucose 207 mg/dL (65-110); Potassium 3.7 mmol/L (3.4-5.0); Sodium 138 mmol/L (137-145)
[2023-01-21 18:44] LABS: Thyroid Stimulating Hormone < 0.015 uIU/mL (0.465-4.680)
== END 2023-01-21 17:49 | disposition home or self-care (01) ==
PROVIDERS: PCP Internal Medicine; Visit Provider Internal Medicine
DX: E11.59 Type 2 diabetes mellitus with other circulatory complications (principal); E03.9 Hypothyroidism, unspecified; R79.89 Other specified abnormal findings of blood chemistry; I15.2 Hypertension secondary to endocrine disorders
CPT/HCPCS: 36415; 80048; 84439; 84443

== ENCOUNTER 2023-01-22 14:58 | Outpatient (CLI) | payer MEDICARE, SELFPAY ==
--- NOTE | ~2023-01-22 | US_ITS ---
EXAMINATION: US soft tissue head and neck DATE: 01/22/2023 15:55 INDICATION: Thyroid mass post reported prior thyroidectomy. Other specified post procedural states. TECHNIQUE: Multiple grayscale and Doppler ultrasound images of the into the neck in the region of the thyroid were obtained. COMPARISON: None FINDINGS: Right thyroid lobe is not visualized consistent with reported history of prior thyroidectomy. There w as a small amount of hypoechoic soft tissue measuring 1.7 x 0.5 x 0.6 cm at the left thyroid fossa wh ich could represent either an atrophic left thyroid lobe or residual thyroid tissue post prior left t hyroidectomy. No abnormal fluid collections or pathologically enlarged lymphadenopathy. IMPRESSION: 1. Absent right thyroid lobe and small amount of hypoechoic soft tissues at the left thyroid fossa li redd residual thyroid tissue post thyroidectomy. Reviewed, dictated and finalized at location A. IMPRESSION: 1. Absent right thyroid lobe and small amount of hypoechoic soft tissues at the left thyroid fossa likely residual thyroid tissue post thyroidectomy.
== END 2023-01-22 14:59 | disposition home or self-care (01) ==
PROVIDERS: PCP Internal Medicine; Visit Provider Internal Medicine
DX: Z98.890 Other specified postprocedural states (principal)
CPT/HCPCS: 76536

== ENCOUNTER 2023-05-01 16:28 | Outpatient (CLI) | payer MEDICARE, SELFPAY ==
[2023-05-01 18:15] LABS: Thyroid Stimulating Hormone 0.368 uIU/mL (0.465-4.680)
[2023-05-01 19:09] LABS: Free T4 Free Thyroxine 1.52 ng/mL (0.78-2.19)
[2023-05-05 11:06] LABS: Triiodothyronine T3 Free 2.8 pg/mL (2.3-4.2)
== END 2023-05-01 16:29 | disposition home or self-care (01) ==
PROVIDERS: PCP Internal Medicine; Visit Provider Internal Medicine
DX: E03.9 Hypothyroidism, unspecified (principal); Z79.899 Other long term (current) drug therapy
CPT/HCPCS: 36415; 84439; 84443; 84481

== ENCOUNTER 2023-10-01 10:25 | Outpatient (CLI) | payer MEDICARE, SELFPAY ==
--- NOTE | ~2023-10-01 | XR_ITS ---
Clinical Indication: Cough PA and lateral views of the chest: Comparison: 12/07/2022 Findings: The lungs are clear, without evidence of focal consolidation or pleural effusion. Probable COPD. Cardiomediastinal silhouette is within normal limits. Bones and soft tissues are unremarkable. Impression: Clear lungs. Probable COPD. Reviewed, dictated and finalized at location . Impression: Clear lungs. Probable COPD.
== END 2023-10-01 10:26 | disposition home or self-care (01) ==
LOC: ANHIMG 10:27
PROVIDERS: PCP Internal Medicine; Visit Provider Internal Medicine
DX: R05.9 Cough, unspecified (principal)
CPT/HCPCS: 71046

== ENCOUNTER 2024-01-26 09:00 | Outpatient (NON) | payer MEDICARE, SELFPAY ==
[2024-01-26 09:44] LABS: Add Urine Microscopic? YES; Appearance Urine Clear (Clear); Bacteria Urine None Seen /hpf; Bilirubin Urine Negative (Negative); Blood Urine Negative (Negative); Color Urine Yellow (Yellow); Glucose Urine UA Negative (Negative); Ketones Urine Negative (Negative); Leukocyte Esterase Ur Negative LEU/UL (Negative); Nitrate Urine Negative (Negative); Non Pathogenic Casts 0-2; Protein Urine 1+ mg/dL (Negative); RBC Urine 0-2 /hpf (0-2); Specific Grav Ur 1.013 (1.001-1.035); Squamous Epithelial Cell Urine None Seen /hpf (Few); Urobilinogen Urine 0.2 mg/dL (<2.0); WBC Urine 0-5 /hpf (0-3)
== END 2024-01-26 09:01 | disposition home or self-care (01) ==
LOC: ANHLAB 09:01
PROVIDERS: PCP Internal Medicine; Visit Provider Internal Medicine
DX: N39.0 Urinary tract infection, site not specified (principal)
CPT/HCPCS: 81001

== ENCOUNTER 2024-01-28 10:34 | Outpatient (CLI) | payer MEDICARE, SELFPAY ==
--- NOTE | ~2024-01-28 | CT_ITS ---
Non-contrast CT scan of the Abdomen and Pelvis Clinical indication: Abdominal pain Technique: 2.5 mm axial scans were obtained through the abdomen and pelvis without intravenous or or al contrast. Dose reduction technique was used on this scan by utilizing automated exposure control a nd iterative reconstruction technique. The dose-length product (DLP) was 993.36 mGy-cm. COMPARISON: 12/07/2022 Findings: Images through the lung bases reveal no abnormalities. There is no evidence of renal or ureteral calculi. The kidneys and the ureters are nondilated. The liver, spleen, pancreas, and adrenals appear normal. Cholecystectomy clips and dilated common andrés e duct are stable from prior exam. There are atherosclerotic calcifications of the aorta. . There is mild wall thickening inflammatory change of the sigmoid colon with underlying diverticular d isease, consistent with mild acute diverticulitis. No abscess or free air. No bowel obstruction. Smal l fat-containing umbilical hernia noted. Images through the pelvis were performed. There is no evidence of ascites or lymphadenopathy. Urinary bladder unremarkable. No pelvic mass seen. Impression: Mild acute sigmoid diverticulitis. No obstruction, abscess, or free air. Small fat-containing umbilical hernia. Reviewed, dictated and finalized at [facility]. Impression: Mild acute sigmoid diverticulitis. No obstruction, abscess, or free air. Small fat-containing umbilical hernia.
[2024-01-28 11:19] LABS: Basophils Absolute Auto 0.1 K/mm3 (0.0-0.1); Basophils Percent Auto 0.9 % (0.2-1.2); Eosinophils Absolute Auto 0.2 K/mm3 (0-0.3); Eosinophils Percent Auto 2.8 % (0-4.4); Hematocrit 40.7 % (37.0-47.0); Hemoglobin 13.2 g/dL (12.0-15.0); Immature Granulocyte Absolute 0.02 K/mm3 (0.00-0.031); Immature Granulocyte Percent A 0.3 % (0-0.5); Lymphocytes Absolute Auto 1.52 K/mm3 (0.9-3.2); Lymphocytes Percent Auto 23.7 % (18.3-44.2); Mean Corpuscular HGB Conc 32.4 g/dl (32-36); Mean Corpuscular Volume 86.4 fl (80-100); Mean Platelet Volume 10.5 fl (7.4-10.4); Monocytes Absolute Auto 0.5 K/mm3 (0.1-0.6); Monocytes Percent Auto 7.6 % (2.6-8.5); Neutrophils Absolute Auto 4.1 K/mm3 (1.3-6.7); Neutrophils Percent Auto 64.7 % (45.5-73.1); Platelet Count Result 221 k/mm3 (150-375); Red Blood Count 4.71 M/mm3 (4.2-5.4); Red Cell Distribution Width 14.6 % (11.5-14.5); White Blood Count 6.4 K/mm3 (4.5-10.0)
[2024-01-28 11:26] LABS: Anion Gap 10 mmol/L (4-12); Blood Urea Nitrogen 13 mg/dL (7-17); Calcium 9.3 mg/dL (8.4-10.2); Carbon Dioxide 25 mmol/L (22-30); Chloride 103 mmol/L (98-107); Estimated Glomerular Filt Rate 60; Glucose 170 mg/dL (65-110); Potassium 3.5 mmol/L (3.4-5.0); Sodium 138 mmol/L (137-145)
[2024-01-28 11:33] LABS: Add Urine Microscopic? YES; Appearance Urine Clear (Clear); Color Urine Yellow (Yellow); Nitrate Urine Negative (Negative); Protein Urine 2+ mg/dL (Negative)
[2024-01-28 11:35] LABS: Bilirubin Urine Negative (Negative); Blood Urine Negative (Negative); Glucose Urine UA Negative (Negative); Ketones Urine Negative (Negative); Leukocyte Esterase Ur Negative LEU/UL (Negative)
[2024-01-28 11:46] LABS: Mucus Urine Moderate /lpf
[2024-01-28 11:47] LABS: RBC Urine 0-2 /hpf (0-2); WBC Urine 0-5 /hpf (0-3)
[2024-01-28 11:48] LABS: Squamous Epithelial Cell Urine Few /hpf (Few)
[2024-01-28 11:49] LABS: Bacteria Urine Trace /hpf
== END 2024-01-28 10:35 | disposition home or self-care (01) ==
PROVIDERS: PCP Internal Medicine; Visit Provider Internal Medicine
DX: E11.59 Type 2 diabetes mellitus with other circulatory complications (principal); I15.2 Hypertension secondary to endocrine disorders; Z79.899 Other long term (current) drug therapy; K42.9 Umbilical hernia without obstruction or gangrene; K57.32 Diverticulitis of large intestine without perforation or abscess without bleeding
CPT/HCPCS: 36415; 74176; 80048; 81001; 85025

== ENCOUNTER 2024-02-23 11:06 | Observation (INO) | payer MEDICARE, SELFPAY ==
--- NOTE | ~2024-02-23 | CT_ITS ---
Non-contrast CT scan of the Abdomen and Pelvis Clinical indication: Abdominal pain Technique: 2.5 mm axial scans were obtained through the abdomen and pelvis without intravenous or or al contrast. Dose reduction technique was used on this scan by utilizing automated exposure control a nd iterative reconstruction technique. The dose-length product (DLP) was 606.72 mGy-cm. COMPARISON: 01/28/2024 Findings: Images through the lung bases reveal no abnormalities. There is no evidence of renal or ureteral calculi. The kidneys and the ureters are nondilated. The liver, spleen, pancreas, and adrenals appear normal. Cholecystectomy clips are present. There are atherosclerotic calcifications of the aorta. . There is wall thickening and pericolonic inflammatory change at the proximal sigmoid colon, compatibl e mild acute diverticulitis. Shotty pericolonic lymph nodes in this region or presumably reactive. No bowel obstruction. No free air or abscess. Images through the pelvis were performed. There is no evidence of ascites or lymphadenopathy. Urinary bladder unremarkable. Patient is post hysterectomy. No pelvic mass seen. Impression: Mild acute diverticulitis of the proximal sigmoid colon. No abscess or free air. Reviewed, dictated and finalized at [facility]. Impression: Mild acute diverticulitis of the proximal sigmoid colon. No abscess or free air .
[2024-02-23 11:13] VITALS: BP 143/70; PULSE 78; RESP 18; TEMP 36.6; O2SAT 100
[2024-02-23 12:32] VITALS: BP 155/90; PULSE 80; RESP 18; O2SAT 97
--- NOTE | 2024-02-23 12:35 | ED.GENADULT ---
HPI - General Adult General Chief complaint: Abdominal Pain Stated complaint: abdominal pain Time Seen by Provider: 02/23/24 12:16 History of Present Illness HPI narrative: 78-year-old female presented to the emergency department for evaluation for worsening left lower quadrant pain. Patient was recently treated with oral antibiotics for diverticulitis. Patient states her symptoms had begun to improve but then began to worsen on Friday. Patient states that her pain came back to the left lower quadrant but is now radiating across the entire lower abdomen Related Data Home Medications Medication Instructions Recorded Confirmed aspirin 81 mg tablet,delayed 81 mg PO DAILY 03/09/19 02/23/24 release (Adult Low Dose Aspirin) cyanocobalamin (vitamin B-12) 1,000 mcg PO QPM 10/25/20 02/23/24 1,000 mcg tablet (Vitamin B-12) ascorbic acid (vitamin C) 1,000 mg 1 g PO QPM 10/03/21 02/23/24 tablet cholecalciferol (vitamin D3) 25 2,000 unit PO DAILY 01/26/22 02/23/24 mcg (1,000 unit) tablet omega-3 fatty acids 1,000 mg 1,000 mg PO QPM 01/26/22 02/23/24 capsule turmeric 1,000 mg BYMOUTH DAILY 01/26/22 02/23/24 biotin 300 mcg tablet 300 mg BYMOUTH DAILY 02/23/24 02/23/24 ciprofloxacin HCl 500 mg tablet 500 mg PO Q12H 02/23/24 02/23/24 escitalopram oxalate 20 mg tablet 20 mg PO DAILY 02/23/24 02/23/24 gabapentin 100 mg capsule 100 mg PO BID 02/23/24 02/23/24 levothyroxine 150 mcg tablet 150 mcg PO DAILY 02/23/24 02/23/24 metformin 500 mg tablet,extended 1,000 mg PO BID 02/23/24 02/23/24 release 24 hr metoprolol succinate 50 mg 25 mg PO HS 02/23/24 02/23/24 tablet,extended release 24 hr metronidazole 500 mg tablet 500 mg PO TID 02/23/24 02/23/24 montelukast 10 mg tablet 10 mg PO HS 02/23/24 02/23/24 pantoprazole 40 mg tablet,delayed 40 mg PO DAILY 02/23/24 02/23/24 release rosuvastatin 40 mg tablet 40 mg PO DAILY 02/23/24 02/23/24 sucralfate 1 gram tablet 1 g PO TID 02/23/24 02/23/24 tramadol 50 mg tablet 50 - 100 mg PO Q6H PRN Pain, 02/23/24 02/23/24 Moderate Allergies Allergy/AdvReac Type Severity Reaction Status Date / Time adhesive tape Allergy Intermediate Rash Verified 02/23/24 12:30 Iodinated Contrast Media Allergy Mild Hives Verified 02/23/24 12:30 iodine Allergy Unknown Hives Verified 02/23/24 12:30 codeine AdvReac Unknown Hallucinati Verified 02/23/24 12:30 ng morphine AdvReac Unknown Hallucinati Verified 02/23/24 12:30 ng Review of Systems Review of Systems: All systems reviewed & are unremarkable except as noted in HPI and below PMFSH Past Medical History Medical History (Updated 02/23/24 @ 16:10 by Kalyani Correia PA-C) Anxiety with depression Asthma exacerbation in COPD BMI 29.0-29.9,adult Chronic back pain Chronic kidney disease Coronary artery disease [place] in 2010 status post stent x2. Degenerative joint disease Diastolic heart failure Diverticulitis Familial tremor Fatty liver Fibromyalgia Hearing loss Hyperlipidemia Hypertension Hypothyroidism Left bundle branch block Olecranon bursitis of left elbow Orthostatic hypotension Pneumonia Polymyalgia rheumatica Suspected chronic obstructive pulmonary disease based on initial evaluation Thyroid cancer Type 2 diabetes mellitus Vitamin D deficiency Surgical History Surgical History History of breast biopsy History of cholecystectomy History of colonoscopy with polypectomy History of coronary artery stent placement History of epidermal inclusion cyst excision Left neck. History of hysterectomy History of partial thyroidectomy Family History Family History Grandparent Diabetes mellitus Mother Hypertension Heart disease Ovarian cancer Father Malignant neoplasm of prostate Cerebrovascular accident Daughter Breast cancer Social History Social History (Updated 02/23/24 @ 16:07 by Kalyani
[2024-02-23 13:01] LABS: Basophils Absolute Auto 0.1 K/mm3 (0.0-0.1); Basophils Percent Auto 0.8 % (0.2-1.2); Eosinophils Absolute Auto 0.1 K/mm3 (0-0.3); Eosinophils Percent Auto 0.8 % (0-4.4); Hematocrit 45.9 % (37.0-47.0); Hemoglobin 14.6 g/dL (12.0-15.0); Immature Granulocyte Absolute 0.04 K/mm3 (0.00-0.031); Immature Granulocyte Percent A 0.5 % (0-0.5); Lymphocytes Absolute Auto 1.96 K/mm3 (0.9-3.2); Lymphocytes Percent Auto 23.2 % (18.3-44.2); Mean Corpuscular HGB Conc 31.8 g/dl (32-36); Mean Corpuscular Hemoglobin 27.6 pg (26-34); Mean Corpuscular Volume 86.8 fl (80-100); Mean Platelet Volume 10.4 fl (7.4-10.4); Monocytes Absolute Auto 0.5 K/mm3 (0.1-0.6); Monocytes Percent Auto 5.9 % (2.6-8.5); Neutrophils Absolute Auto 5.8 K/mm3 (1.3-6.7); Neutrophils Percent Auto 68.8 % (45.5-73.1); Platelet Count Result 255 k/mm3 (150-375); Red Blood Count 5.29 M/mm3 (4.2-5.4); Red Cell Distribution Width 14.2 % (11.5-14.5); White Blood Count 8.5 K/mm3 (4.5-10.0)
[2024-02-23 13:04] LABS: INR 1.1; Partial Thromboplastin Time 29.3 Seconds (22.3-36.8)
[2024-02-23 13:20] LABS: Alanine Aminotransferase 32 U/L (6-35); Albumin Level 4.4 g/dL (3.5-5.1); Alkaline Phosphatase 162 U/L (38-126); Anion Gap 9 mmol/L (4-12); Aspartate Amino Transferase 31 U/L (14-36); Bilirubin,Total 1.7 mg/dL (0.2-1.3); Blood Urea Nitrogen 9 mg/dL (7-17); Calcium 9.7 mg/dL (8.4-10.2); Carbon Dioxide 27 mmol/L (22-30); Chloride 104 mmol/L (98-107); Estimated CRCL calculation 50 ml/min; Estimated Glomerular Filt Rate 60; Glucose 132 mg/dL (65-110); Lipase 32 U/L (23-300); Potassium 3.8 mmol/L (3.4-5.0); Sodium 140 mmol/L (137-145)
[2024-02-23 13:30] LABS: Add Urine Microscopic? YES; Appearance Urine Clear (Clear); Bacteria Urine None Seen /hpf; Bilirubin Urine Negative (Negative); Blood Urine Negative (Negative); Color Urine Yellow (Yellow); Glucose Urine UA Negative (Negative); Ketones Urine 1+ mg/dL (Negative); Leukocyte Esterase Ur Trace LEU/UL (Negative); Nitrate Urine Negative (Negative); Non Pathogenic Casts 0-2; Protein Urine 2+ mg/dL (Negative); RBC Urine 0-2 /hpf (0-2); Specific Grav Ur 1.013 (1.001-1.035); Squamous Epithelial Cell Urine None Seen /hpf (Few); WBC Urine 0-5 /hpf (0-3); pH Urine 6.5 (5.0-9.0)
--- NOTE | 2024-02-23 14:02 | PC.NURSE ---
pt asking to sign out AMA because of the wait time on everything. CT walked in the room and pt decided she would stay at this time.
--- NOTE | 2024-02-23 14:04 | PC.NURSE ---
Pt flipped nursing staff off as they were leaving her room.
[2024-02-23 14:15] VITALS: O2SAT 97
--- NOTE | 2024-02-23 15:55 | PM.IMHP ---
H&P: HPI History of Present Illness Date/Time: 02/23/24 15:55 Chief Complaint: Abdominal pain. Narrative: This is a pleasant 78-year-old female with no medical problems including history of coronary artery disease with stents, diastolic congestive heart failure, hypertension, hyperlipidemia, type 2 diabetes mellitus, hypothyroidism, peptic ulcer, cecal arteriovenous malformations, polymyalgia rheumatica, and other comorbidities who presented to the emergency department via private vehicle with complaints of abdominal pain. She gives a several week history of left lower quadrant abdominal pain and was found to have mild acute sigmoid diverticulitis on CT scan on 01/28/2024 for which she finished a course of ciprofloxacin and metronidazole with improvement symptoms. Three days ago however her symptoms returned and are worse than they were before. She describes a sharp, stabbing pain in the left lower quadrant radiating diffusely across the lower abdomen. Her abdomen feels a bit distended as well and her appetite has not been great. She was again started on antibiotics but has noticed no improvement and she came for evaluation She denies fever, chills, sweats, vomiting, diarrhea, constipation, and blood/mucus in stool. In the ED: She was afebrile on arrival with stable vital signs. CMP and CBC were without any significant changes compared to baseline. CT of the abdomen and pelvis shows mild acute diverticulitis at the proximal sigmoid colon. She is being admitted in this setting for IV antibiotics given lack of improvement. Review of Systems Review of Systems: 12 systems were reviewed and are negative except for as per HPI. [facility] Past Medical History Medical History (Updated 02/23/24 @ 16:10 by Kalyani Correia PA-C) Anxiety with depression Asthma exacerbation in COPD BMI 29.0-29.9,adult Chronic back pain Chronic kidney disease Coronary artery disease [place] in 2010 status post stent x2. Degenerative joint disease Diastolic heart failure Diverticulitis Familial tremor Fatty liver Fibromyalgia Hearing loss Hyperlipidemia Hypertension Hypothyroidism Left bundle branch block Olecranon bursitis of left elbow Orthostatic hypotension Pneumonia Polymyalgia rheumatica Suspected chronic obstructive pulmonary disease based on initial evaluation Thyroid cancer Type 2 diabetes mellitus Vitamin D deficiency Surgical History Surgical History History of breast biopsy History of cholecystectomy History of colonoscopy with polypectomy History of coronary artery stent placement History of epidermal inclusion cyst excision Left neck. History of hysterectomy History of partial thyroidectomy Family History Family History Grandparent Diabetes mellitus Mother Hypertension Heart disease Ovarian cancer Father Malignant neoplasm of prostate Cerebrovascular accident Daughter Breast cancer Social History Social History (Updated 02/23/24 @ 16:07 by Kalyani Correia PA-C) Social History: Surrogate medical decision maker: Allen Tello, spouse. Code status: Full code. Smoking packs per day: 1 Smoking cigarettes per day: 20.0 Smoking status: Former smoker Tobacco type: cigarettes Second hand tobacco smoke exposure: Yes Alcohol intake: former Substance use: never Substance use type: does not use Lack of Transportation: No Lack of Food: Never True Current Housing: I Have Housing Concerned About Future Housing: No Difficulty Paying Gas/Electric Bills: No Difficulty Paying for Meds: No Currently Unemployed: No Education: High School Diploma/GED Difficulty w/ Childcare or Family Care: No Living arrangements: with family Additional living arrangements comments: Lives in [place] with spouse. Spiritual care concerns: No Meds Home Medications and Allergies Home Medi
[2024-02-23] MEDS: PIPERACILLN/TAZ 3.375GM/NS50ML 3.375 GM/50 ML BAG IVPB ×2 (16:09→22:48)
[2024-02-23 16:11] VITALS: BP 181/77; PULSE 72; RESP 18; O2SAT 97
[2024-02-23 17:01] VITALS: BP 151/75; PULSE 75; RESP 18; TEMP 36.5; O2SAT 97
[2024-02-23 17:34] VITALS: BMI 29.0
[2024-02-23 17:37] LABS: Glucose Point of Care 183 mg/dl (65-105)
[2024-02-23] MEDS: SODIUM CHLORIDE 0.9% IV 1,000 ML 85 ML IV CONT (18:02)
[2024-02-23 20:17] LABS: Glucose Point of Care 221 mg/dl (65-105)
[2024-02-23 20:35] VITALS: BP 145/74; PULSE 78; RESP 16; TEMP 37.2; O2SAT 98
[2024-02-23] MEDS: ACETAMINOPHEN 325 MG TABLET 650 MG PO (21:13)
[2024-02-24 05:15] VITALS: BP 175/82; PULSE 87; RESP 18; TEMP 36.2; O2SAT 99
[2024-02-24] MEDS: PIPERACILLN/TAZ 3.375GM/NS50ML 3.375 GM/50 ML BAG IVPB ×4 (05:25→23:41)
[2024-02-24 06:09] LABS: Basophils Absolute Auto 0.1 K/mm3 (0.0-0.1); Basophils Percent Auto 0.8 % (0.2-1.2); Eosinophils Absolute Auto 0.1 K/mm3 (0-0.3); Eosinophils Percent Auto 1.4 % (0-4.4); Hematocrit 42.3 % (37.0-47.0); Hemoglobin 13.4 g/dL (12.0-15.0); Immature Granulocyte Absolute 0.02 K/mm3 (0.00-0.031); Immature Granulocyte Percent A 0.2 % (0-0.5); Lymphocytes Absolute Auto 2.32 K/mm3 (0.9-3.2); Lymphocytes Percent Auto 25.2 % (18.3-44.2); Mean Corpuscular HGB Conc 31.7 g/dl (32-36); Mean Corpuscular Hemoglobin 27.9 pg (26-34); Mean Corpuscular Volume 87.9 fl (80-100); Mean Platelet Volume 10.5 fl (7.4-10.4); Monocytes Absolute Auto 0.7 K/mm3 (0.1-0.6); Monocytes Percent Auto 7.4 % (2.6-8.5); Platelet Count Result 241 k/mm3 (150-375); Red Blood Count 4.81 M/mm3 (4.2-5.4); Red Cell Distribution Width 14.4 % (11.5-14.5); White Blood Count 9.2 K/mm3 (4.5-10.0)
[2024-02-24 06:25] LABS: Alanine Aminotransferase 27 U/L (6-35); Alkaline Phosphatase 135 U/L (38-126); Anion Gap 10 mmol/L (4-12); Aspartate Amino Transferase 32 U/L (14-36); Bilirubin,Total 1.4 mg/dL (0.2-1.3); Blood Urea Nitrogen 8 mg/dL (7-17); Calcium 8.9 mg/dL (8.4-10.2); Carbon Dioxide 22 mmol/L (22-30); Chloride 107 mmol/L (98-107); Estimated CRCL calculation 50 ml/min; Estimated Glomerular Filt Rate 60; Glucose 129 mg/dL (65-110); Magnesium 1.9 mg/dL (1.6-2.3); Potassium 3.3 mmol/L (3.4-5.0); Sodium 139 mmol/L (137-145)
[2024-02-24] MEDS: LEVOTHYROXINE SODIUM 150 MCG TABLET PO (06:27)
[2024-02-24] MEDS: ONDANSETRON INJ 4 MG/2 ML VIAL IV PUSH (07:54)
[2024-02-24 08:18] LABS: Glucose Point of Care 145 mg/dl (65-105)
[2024-02-24 08:29] LABS: Free T4 Free Thyroxine Reflex 1.12 ng/dL (0.78-2.19)
[2024-02-24 08:41] VITALS: O2SAT 100
[2024-02-24 09:20] LABS: Total Triiodothyronine (T3) 0.93 NG/ML (0.97-1.69)
[2024-02-24] MEDS: ROSUVASTATIN 20 MG TABLET 40 MG PO (09:24)
[2024-02-24] MEDS: ESCITALOPRAM OXALATE 10 MG TABLET 20 MG PO (09:24)
[2024-02-24] MEDS: GABAPENTIN 100 MG CAPSULE PO ×2 (09:24→16:15)
[2024-02-24] MEDS: PANTOPRAZOLE 40 MG TABLET PO (09:24)
[2024-02-24] MEDS: SUCRALFATE 1 GM TABLET PO ×3 (09:24→16:15)
[2024-02-24] MEDS: ASPIRIN 81 MG ENTERIC TABLET PO (09:24)
--- NOTE | 2024-02-24 09:59 | PM.IMPN ---
Progress Note: A&P Assessment and Plan (1) Diverticulitis: Code(s): K57.92 - Diverticulitis of intestine, part unspecified, without perforation or abscess without bleeding Status: Acute Assessment and Plan: She completed a course of antibiotics earlier this month for diverticulitis (cipro, flagyl) and was restarted on antibiotics just 3 days ago for recurrent symptoms. Unfortunately her pain is not improving and a repeat CT scan today continues to show sigmoid diverticulitis. WBC normal. Afebrile. Blood cultures pending Started on Zosyn empirically IV fluids received in the ED, now saline locked Tolerated clear liquids today, advance to low fiber diet Prn medications for pain and nausea If she tolerates diet and pain is controlled likely discharge in 24-48 hours (2) Diastolic heart failure: Code(s): I50.30 - Unspecified diastolic (congestive) heart failure Status: Acute Assessment and Plan: History of CHF with ECHO from 01/2022 showing LV systolic function normal EF 55-60%, grade 1 diastolic dysfunction. Appear euvolemic. 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 Check hemoglobin A1c. Her home medications will be reviewed and resumed as appropriate. Subjective Date/time seen: 02/24/24 09:59 Interval history: No acute events overnight. She is tolerating clear liquid diet. She has nausea off and on but is unsure if this is from not eating. She has tenderness to her left lower quadrant with palpation and position changes but her pain is stable. She had a bowel movement today which was brown and without blood. Review of Systems Review of Systems: All systems reviewed & are unremarkable except as noted in HPI and below Exam Narrative: General: appears comfortable, in no acute distress Respiratory: breathing is unlabored with even chest rise/fall, lungs are clear without wheezing, rhonchi, and crackles Cardiovascular: Rate and rhythm regular, normal s1s2, no murmur Abdomen: Soft, round, mild tenderness to left lower quadrant Extremities: No cyanosis, edema, clubbing. Pulses 2/2 Neuro: A&O x 4 Skin: Warm, dry, intact Objective Data Vital Signs Vital Signs: Vital Signs - 24 hr 02/23/24 11:13 02/23/24 12:32 02/23/24 14:15 Temperature 97.9 F Pulse Rate 78 80 Respiratory Rate 18 18 Blood Pressure 143/70 H 155/90 H Pulse Oximetry 100 97 97 Oxygen Delivery Room Air 02/23/24 16:11 02/23/24 17:01 02/23/24 20:35 Temperature 97.7 F 98.9 F Pulse Rate 72 75 78 Respiratory Rate 18 18 16 Blood Pressure 181/77 H 151/75 H 145/74 H Pulse Oximetry 97 97 98 Oxygen Delivery 02/23/24 20:00 02/24/24 05:15 02/24/24 08:00 Temperature 97.1 F L Pulse Rate 87 Respiratory Rate 18 Blood Pressure 175/82 H Pulse Oximetry 99 Oxygen Delivery Room Air Room Air 02/24/24 08:41 Temperature Pulse Rate Respiratory Rate Blood Pressure Pulse Oximetry 100 Oxygen Delivery Room Air Intake/Output Intake/Output: Intake & Output 02/21/24 02/22/24 02/23/24 02/24/24 23:59 23:59 23:59 23:59 Intake Total 286 577 Balance 286 577 Meds/Results Medications: Active Medications Generic Name Dose Route Start Last Admin Trade Name Freq PRN Reason Stop Dose Admin Acetaminophen 650 mg 02/23/24 16:14 02/23/24 21:13 Acetaminophen 325 Mg Tablet PO 650 mg Q6H PRN Administration Mild Pain (1-3) or Fever Aspirin 81 mg 02/24/24 09:00 02/24/24 09:24 Aspirin 81 Mg
[2024-02-24] MEDS: traMADol HCL (*CRX) 50 MG TABLET PO ×2 (11:16→18:26)
[2024-02-24 11:51] LABS: Glucose Point of Care 219 mg/dl (65-105)
[2024-02-24] MEDS: INSULIN ASPART (*BKC) 100 UNITS/ML SUB-Q (12:18)
[2024-02-24 14:00] VITALS: BP 100/53; PULSE 79; RESP 20; TEMP 35.8; O2SAT 96
[2024-02-24 16:45] LABS: Glucose Point of Care 105 mg/dl (65-105)
[2024-02-24 20:00] VITALS: O2SAT 93
[2024-02-24 20:45] LABS: Glucose Point of Care 184 mg/dl (65-105)
[2024-02-24 20:51] VITALS: BP 107/55; PULSE 72; RESP 16; TEMP 37; O2SAT 93
[2024-02-24] MEDS: METOPROLOL SUCCINATE EXT REL 25 MG TABCR PO (21:11)
[2024-02-24] MEDS: MONTELUKAST SODIUM 10 MG TABLET PO (21:11)
[2024-02-24] MEDS: SIMETHICONE 80 MG TAB.CHEW PO (21:22)
[2024-02-25] MEDS: PIPERACILLN/TAZ 3.375GM/NS50ML 3.375 GM/50 ML BAG IVPB ×2 (05:17→12:34)
[2024-02-25] MEDS: LEVOTHYROXINE SODIUM 150 MCG TABLET PO (05:17)
[2024-02-25 05:26] VITALS: BP 139/61; PULSE 78; RESP 14; TEMP 36.8; O2SAT 93
[2024-02-25 07:07] LABS: Basophils Absolute Auto 0.1 K/mm3 (0.0-0.1); Eosinophils Absolute Auto 0.4 K/mm3 (0-0.3); Eosinophils Percent Auto 4.4 % (0-4.4); Hematocrit 38.7 % (37.0-47.0); Immature Granulocyte Absolute 0.02 K/mm3 (0.00-0.031); Immature Granulocyte Percent A 0.2 % (0-0.5); Lymphocytes Absolute Auto 2.46 K/mm3 (0.9-3.2); Lymphocytes Percent Auto 30.6 % (18.3-44.2); Mean Corpuscular Hemoglobin 27.8 pg (26-34); Mean Corpuscular Volume 89.6 fl (80-100); Mean Platelet Volume 10.8 fl (7.4-10.4); Monocytes Absolute Auto 0.7 K/mm3 (0.1-0.6); Monocytes Percent Auto 8.2 % (2.6-8.5); Neutrophils Absolute Auto 4.5 K/mm3 (1.3-6.7); Neutrophils Percent Auto 55.6 % (45.5-73.1); Platelet Count Result 228 k/mm3 (150-375); Red Blood Count 4.32 M/mm3 (4.2-5.4); Red Cell Distribution Width 14.7 % (11.5-14.5)
[2024-02-25 07:24] LABS: Alanine Aminotransferase 26 U/L (6-35); Albumin Level 3.4 g/dL (3.5-5.1); Alkaline Phosphatase 104 U/L (38-126); Anion Gap 8 mmol/L (4-12); Aspartate Amino Transferase 27 U/L (14-36); Bilirubin,Total 1.2 mg/dL (0.2-1.3); Blood Urea Nitrogen 10 mg/dL (7-17); CRP 0.5 mg/dL (<1.0); Calcium 9.1 mg/dL (8.4-10.2); Carbon Dioxide 27 mmol/L (22-30); Chloride 104 mmol/L (98-107); Estimated CRCL calculation 33 ml/min; Estimated Glomerular Filt Rate 36; Glucose 111 mg/dL (65-110); Sodium 139 mmol/L (137-145)
[2024-02-25 07:49] LABS: Glucose Point of Care 128 mg/dl (65-105)
[2024-02-25 08:00] VITALS: PULSE 78; RESP 14; O2SAT 93
[2024-02-25] MEDS: ESCITALOPRAM OXALATE 10 MG TABLET 20 MG PO (09:19)
[2024-02-25] MEDS: ASPIRIN 81 MG ENTERIC TABLET PO (09:19)
[2024-02-25] MEDS: GABAPENTIN 100 MG CAPSULE PO (09:19)
[2024-02-25] MEDS: ROSUVASTATIN 20 MG TABLET 40 MG PO (09:19)
[2024-02-25] MEDS: SUCRALFATE 1 GM TABLET PO ×2 (09:19→12:34)
[2024-02-25] MEDS: PANTOPRAZOLE 40 MG TABLET PO (09:20)
[2024-02-25] MEDS: ACETAMINOPHEN 325 MG TABLET 650 MG PO (11:20)
[2024-02-25 11:54] LABS: Glucose Point of Care 172 mg/dl (65-105)
--- NOTE | 2024-02-25 12:55 | PM.DS ---
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 Patient had failed outpatient antibiotic Therapy. Patient reported she was feeling better after a few days at home bu then the pain return. CT ABD showed acute diverticulitis of the proximal sigmoid colon no abscess or free air noted. Patient was admitted for pain control, IV fluids,bowel rest and was started on IV Zosyn. Patient responded well to treatment and was able to advance diet. Patient with overall improvement of symptoms and tolerating oral intake day of discharge. Labs unremarkable and were stable at time of discharge. She was discharged to home on Augmentin PO and I recommended follow-up with a referral to a GI physician for colonoscopy 6-8 weeks after infectious process has resolved. Time Spent with Patient Time attestation: Total time spent providing and/or coordinating discharge services: Exam Narrative: General: appears comfortable, in no acute distress Respiratory: breathing is unlabored with even chest rise/fall, lungs are clear without wheezing, rhonchi, and crackles Cardiovascular: Rate and rhythm regular, normal s1s2, no murmur Abdomen: Soft, round, mild tenderness to left lower quadrant Extremities: No cyanosis, edema, clubbing. Pulses 2/2 Neuro: A&O x 4 Skin: Warm, dry, intact DS: Data Data Completed and Pending Labs on day of discharge: Labs from last 24 hours 02/25/24 02/25/24 02/25/24 11:28 07:41 06:32 WBC 8.0 RBC 4.32 Hgb 12.0 Hct 38.7 MCV 89.6 MCH 27.8 MCHC 31.0 L RDW 14.7 H Plt Count 228 MPV 10.8 H Immature Gran % (Auto) 0.2 Neut % (Auto) 55.6 Lymph % (Auto) 30.6 Crenshaw % (Auto) 8.2 Eos % (Auto) 4.4 Baso % (Auto) 1.0 Lymph # (Auto) 2.46 Crenshaw # (Auto) 0.7 H Eos # (Auto) 0.4 H Baso # (Auto) 0.1 Abs Immat Gran (auto) 0.02 Absolute Neuts (auto) 4.5 Absolute Nucleated RBC 0.000 Nucleated RBC % 0.0 Sodium 139 Potassium 4.0 Chloride 104 Carbon Dioxide 27 Anion Gap 8 BUN 10 Creatinine 1.40 H Estim Creat Clear Calc 33 Estimated GFR 36 L Glucose 111 H POC Capillary Glucose 172 H 128 H Calcium 9.1 Total Bilirubin 1.2 AST 27 ALT 26 Alkaline Phosphatase 104 C-Reactive Protein 0.5 Total Protein 6.0 L Albumin 3.4 L 02/24/24 02/24/24 20:22 16:33 WBC RBC Hgb Hct MCV MCH MCHC RDW Plt Count MPV Immature Gran % (Auto) Neut % (Auto) Lymph % (Auto) Crenshaw % (Auto) Eos % (Auto) Baso % (Auto) Lymph # (Auto) Crenshaw # (Auto) Eos # (Auto) Baso # (Auto) Abs Immat Gran (auto) Absolute Neuts (auto) Absolute Nucleated RBC Nucleated RBC % Sodium Potassium Chloride Carbon Dioxide Anion Gap BUN Creatinine Estim Creat Clear Calc Estimated GFR Glucose POC Capillary Glucose 184 H 105 Calcium Tot
== END 2024-02-25 14:10 | disposition home or self-care (01) ==
LOC: ANHED 15:13 → ANH3MEDSUR 16:37
PROVIDERS: Nurse Practitioner Acute Care; Physician Assistant; Admitting Provider Hospitalist; Emergency Provider Emergency Medicine; PCP Internal Medicine; Visit Provider Nurse Practitioner Family
DX: K57.92 Diverticulitis of intestine, part unspecified, without perforation or abscess without bleeding (principal); I11.0 Hypertensive heart disease with heart failure; I50.30 Unspecified diastolic (congestive) heart failure; I25.10 Atherosclerotic heart disease of native coronary artery without angina pectoris; E11.9 Type 2 diabetes mellitus without complications; Z95.5 Presence of coronary angioplasty implant and graft; I25.2 Old myocardial infarction; E78.5 Hyperlipidemia, unspecified; E89.0 Postprocedural hypothyroidism; M35.3 Polymyalgia rheumatica; E55.9 Vitamin D deficiency, unspecified; Z87.891 Personal history of nicotine dependence; Z79.82 Long term (current) use of aspirin; Z79.84 Long term (current) use of oral hypoglycemic drugs
CPT/HCPCS: 36415; 74176; 80053; 81001; 82948; 83690; 83735; 84439; 84443; 84480; 85025; 85610; 85730; 86140; 87040; 96361; 96365; 96366; 96375; 99285; A9270; G0378; J1815; J2405; J2543; J7030

== ENCOUNTER 2024-04-16 02:46 | Day surgery (SDC) | payer MEDICARE, SELFPAY ==
[2024-03-15 11:19] VITALS: BMI 29.0
[2024-04-07 11:05] VITALS: BMI 29.0
--- NOTE | 2024-04-13 08:11 | SUR.PREOP ---
Pt called and left a message on our voicmail wanting to know what time she needed to arrive for her procedure on Apr 16. I returned her call this am and spoke with her significant other and answered their questions. Informed them to arrive at 1230 for her procedure on 04/16/24.
[2024-04-16 12:48] VITALS: BP 120/75; PULSE 99; RESP 20; TEMP 35.9; O2SAT 97; BMI 27.9
--- NOTE | 2024-04-16 13:04 | WPDANESEPPF ---
Anes - Initial Pre Proc Eval Procedure: Operation Date: 04/16/24 14:00 Proposed Procedures p Colonoscopy - Brett Crane MD Date/Time: 04/16/24 13:04 Surgeon: Brett Crane MD Pre Op Diagnosis: Diverticulitis Patient Data Age: 78 Gender: F Height: 1.7 m Weight: 84 kg Allergies Allergy/AdvReac Type Severity Reaction Status Date / Time adhesive tape Allergy Intermediate Rash Verified 04/16/24 12:59 Iodinated Contrast Media Allergy Mild Hives Verified 04/16/24 12:59 iodine Allergy Unknown Hives Verified 04/16/24 12:59 codeine AdvReac Unknown Hallucinati Verified 04/16/24 12:59 ng morphine AdvReac Unknown Hallucinati Verified 04/16/24 12:59 ng Home Medications ?Medication ?Instructions ?Recorded ?Confirmed ?Type aspirin 81 mg tablet,delayed 81 mg PO DAILY 03/09/19 03/15/24 History release (Adult Low Dose Aspirin) cyanocobalamin (vitamin B-12) 1,000 mcg PO QPM 10/25/20 03/15/24 History 1,000 mcg tablet (Vitamin B-12) ascorbic acid (vitamin C) 1,000 mg 1 g PO QPM 10/03/21 03/15/24 History tablet cholecalciferol (vitamin D3) 25 2,000 unit PO DAILY 01/26/22 03/15/24 History mcg (1,000 unit) tablet omega-3 fatty acids 1,000 mg 1,000 mg PO QPM 01/26/22 03/15/24 History capsule turmeric 1,000 mg BYMOUTH DAILY 01/26/22 03/15/24 History biotin 300 mcg tablet 300 mg BYMOUTH DAILY 02/23/24 03/15/24 History escitalopram oxalate 20 mg tablet 20 mg PO DAILY 02/23/24 03/15/24 History gabapentin 100 mg capsule 100 mg PO BID 02/23/24 03/15/24 History levothyroxine 150 mcg tablet 150 mcg PO EVERY OTHER DAY 02/23/24 03/15/24 History metformin 500 mg tablet,extended 1,000 mg PO BID 02/23/24 03/15/24 History release 24 hr pantoprazole 40 mg tablet,delayed 40 mg PO DAILY 02/23/24 03/15/24 History release (Protonix) sucralfate 1 gram tablet 2 g PO BID 02/23/24 03/15/24 History tramadol 50 mg tablet 50 - 100 mg PO Q6H PRN Pain, 02/23/24 03/15/24 History Moderate Beet Root 1 tab-cap PO DAILY 03/15/24 03/15/24 History Folate 1,330 mg PO DAILY 03/15/24 03/15/24 History amino acids-multivit with iron and 1 tablet PO DAILY 03/15/24 03/15/24 History minerals tablet calcium 600 mg capsule 1,200 mg PO HS 03/15/24 03/15/24 History calcium polycarbophil 625 mg 625 mg PO DAILY 03/15/24 03/15/24 History tablet (Fiber (calcium polycarbophil)) levothyroxine 125 mcg tablet 125 mcg PO EVERY OTHER DAY 03/15/24 03/15/24 History montelukast 10 mg tablet 10 mg PO HS #90 tabs 04/09/24 Rx rosuvastatin 40 mg tablet 40 mg PO DAILY #90 tabs 04/09/24 Rx empagliflozin 25 mg-linagliptin 5 1 tablet PO QAM #90 tabs 04/12/24 Rx mg tablet (Glyxambi) Patient hx anesthesia problems: none Family hx anesthesia problems: none Results Review: All pre-operative results and documents have been reviewed as part of the pre-operative evaluation. [facility] Past Medical History Medical History Diastolic heart failure Diverticulitis BMI 29.0-29.9,adult Fatty liver Olecranon bursitis of left elbow Chronic back pain Suspected chronic obstructive pulmonary disease based on initial evaluation Pneumonia Asthma exacerbation in COPD Thyroid cancer Coronary artery disease [place] in 2010 status post stent x2. Polymyalgia rheumatica Left bundle branch block Degenerative joint disease Type 2 diabetes mellitus Chronic kidney disease Fibromyalgia Hypertension Hypothyroidism Familial tremor Anxiety with depression Vitamin D deficiency Hyperlipidemia Hearing loss Orthostatic hypotension Surgical History Surgical History History of epidermal inclusion cyst excision Left neck. History of hysterectomy History of coronary artery stent placement History of cholecystectomy History of partial thyroidectomy History of colonoscopy with polypectomy History of breast biopsy Family History Family History Grandparent Diabetes mellitus Mother Hypertension Heart disease Ovarian cancer Father Malignant neoplasm of prostate Cerebrovascular accident Daughter Breast cancer Social History Social History Social History: Surrogate medical decision maker: Allen Tello, spouse. Code status: Full code. Smoking packs per day: 1 Smoking cigarettes per day: 20.0 Smoking status: Former smoker Tobacco type: cigarettes Second hand tobacco smoke exposure: Yes Smoking end date: 02/24/99 Alcohol intake: never Substance use: current Substance use type: marijuana Other substance usage details: tea Last use: 4 weeks Do You Feel Safe in your Home?: Yes Lack of Transportation: No Lack of Food: Never True Current Housing: I Have Housing Concerned About Future Housing: No Difficulty Paying Gas/Electric Bills: No Difficulty Paying for Meds: No Currently Unemployed: No Education: Bachelor's Degree Difficulty w/ Childcare or Family Care: No Living arrangements: with family Additional living arrangements comments: Lives in [place] with spouse. Spiritual care concerns: No Anes - Eval Final PreProcedure Day of Procedure 04/16/24 13:04 Patient weight: obese Heart: regular rate and rhythm Lungs: clear to auscultation Airway: Mallampati scale class II Neurological: alert and oriented Last oral intake: >/= 8 hours ASA classification: IV Emergent: no Anesthetic plan: proceed Anesthesia type and monitoring: general GIVS and standard monitoring Results Review: All pre-operative results and documents have been reviewed as part of the pre-operative evaluation. Informed Consent: The patient's anesthetic plan and its attendant risks and benefits were discussed with the patient/family/POA. Questions were solicited and answers provided to the satisfaction of the patient/family/POA.
--- NOTE | 2024-04-16 13:18 | PM.IMHP ---
H&P: HPI History of Present Illness Date/Time: 04/16/24 13:18 Chief Complaint: History of colon polyps Narrative: The patient has a history of colonic polyps, the last colonoscopy was in 2021, where she was found to have multiple adenomas. She is here for follow-up. Review of Systems Review of Systems: All systems reviewed & are unremarkable except as noted in HPI and below PMFSH Past Medical History Medical History Diastolic heart failure Diverticulitis BMI 29.0-29.9,adult Fatty liver Olecranon bursitis of left elbow Chronic back pain Suspected chronic obstructive pulmonary disease based on initial evaluation Pneumonia Asthma exacerbation in COPD Thyroid cancer Coronary artery disease AL in 2009 status post stent x2. Polymyalgia rheumatica Left bundle branch block Degenerative joint disease Type 2 diabetes mellitus Chronic kidney disease Fibromyalgia Hypertension Hypothyroidism Familial tremor Anxiety with depression Vitamin D deficiency Hyperlipidemia Hearing loss Orthostatic hypotension Surgical History Surgical History History of epidermal inclusion cyst excision Left neck. History of hysterectomy History of coronary artery stent placement History of cholecystectomy History of partial thyroidectomy History of colonoscopy with polypectomy History of breast biopsy Family History Family History Grandparent Diabetes mellitus Mother Hypertension Heart disease Ovarian cancer Father Malignant neoplasm of prostate Cerebrovascular accident Daughter Breast cancer Social History Social History Social History: Surrogate medical decision maker: Allen Tello, spouse. Code status: Full code. Smoking packs per day: 1 Smoking cigarettes per day: 20.0 Smoking status: Former smoker Tobacco type: cigarettes Second hand tobacco smoke exposure: Yes Smoking end date: 02/24/99 Alcohol intake: never Substance use: current Substance use type: marijuana Other substance usage details: tea Last use: 4 weeks Do You Feel Safe in your Home?: Yes Lack of Transportation: No Lack of Food: Never True Current Housing: I Have Housing Concerned About Future Housing: No Difficulty Paying Gas/Electric Bills: No Difficulty Paying for Meds: No Currently Unemployed: No Education: Bachelor's Degree Difficulty w/ Childcare or Family Care: No Living arrangements: with family Additional living arrangements comments: Lives in [place] with spouse. Spiritual care concerns: No Meds Home Medications and Allergies Home Medications ?Medication ?Instructions ?Recorded ?Confirmed ?Type aspirin 81 mg tablet,delayed 81 mg PO DAILY 03/09/19 04/16/24 History release (Adult Low Dose Aspirin) cyanocobalamin (vitamin B-12) 1,000 mcg PO QPM 10/25/20 04/16/24 History 1,000 mcg tablet (Vitamin B-12) ascorbic acid (vitamin C) 1,000 mg 1 g PO QPM 10/03/21 04/16/24 History tablet cholecalciferol (vitamin D3) 25 2,000 unit PO DAILY 01/26/22 04/16/24 History mcg (1,000 unit) tablet omega-3 fatty acids 1,000 mg 1,000 mg PO QPM 01/26/22 04/16/24 History capsule turmeric 1,000 mg BYMOUTH DAILY 01/26/22 04/16/24 History biotin 300 mcg tablet 300 mg BYMOUTH DAILY 02/23/24 04/16/24 History escitalopram oxalate 20 mg tablet 20 mg PO DAILY 02/23/24 04/16/24 History gabapentin 100 mg capsule 100 mg PO BID 02/23/24 04/16/24 History levothyroxine 150 mcg tablet 150 mcg PO EVERY OTHER DAY 02/23/24 04/16/24 History metformin 500 mg tablet,extended 1,000 mg PO BID 02/23/24 04/16/24 History release 24 hr pantoprazole 40 mg tablet,delayed 40 mg PO DAILY 02/23/24 04/16/24 History release (Protonix) sucralfate 1 gram tablet 2 g PO BID 02/23/24 04/16/24 History tramadol 50 mg tablet 50 - 100 mg PO Q6H PRN Pain, 02/23/24 04/16/24 History Moderate Beet Root 1 tab-cap PO DAILY 03/15/24 04/16/24 History Folate 1,330 mg PO DAILY 03/15/24 04/16/24 History amino acids-multivit with iron and 1 tablet PO DAILY 03/15/24 04/16/24 History minerals tablet calcium 600 mg capsule 1,200 mg PO HS 03/15/24 04/16/24 History calcium polycarbophil 625 mg 625 mg PO DAILY 03/15/24 04/16/24 History tablet (Fiber (calcium polycarbophil)) levothyroxine 125 mcg tablet 125 mcg PO EVERY OTHER DAY 03/15/24 04/16/24 History montelukast 10 mg tablet 10 mg PO HS #90 tabs 04/09/24 04/16/24 Rx rosuvastatin 40 mg tablet 40 mg PO DAILY #90 tabs 04/09/24 04/16/24 Rx empagliflozin 25 mg-linagliptin 5 1 tablet PO QAM #90 tabs 04/12/24 04/16/24 Rx mg tablet (Glyxambi) Allergies Allergy/AdvReac Type Severity Reaction Status Date / Time adhesive tape Allergy Intermediate Rash Verified 04/16/24 12:59 Iodinated Contrast Media Allergy Mild Hives Verified 04/16/24 12:59 iodine Allergy Unknown Hives Verified 04/16/24 12:59 codeine AdvReac Unknown Hallucinati Verified 04/16/24 12:59 ng morphine AdvReac Unknown Hallucinati Verified 04/16/24 12:59 ng Vital Signs Vital Signs - 24 hr 04/16/24 12:48 Temperature 96.7 F L Pulse Rate 99 Respiratory Rate 20 Blood Pressure 120/75 Pulse Oximetry 97 Oxygen Delivery Room Air Exam Const: General: cooperative and healthy appearing Resp: Effort & Inspection: normal respiratory effort and able to speak in complete sentences Auscultation: clear to auscultation bilaterally Cardio: Rate: regular rate Rhythm: regular rhythm GI: Inspection: normal to inspection GI Palp: No No hepatosplenomegaly present Auscultation: normal bowel sounds Rectal Exam: deferred Skin: General skin exam: normal color Psych: Appearance: grossly normal Mental Status: mental status grossly normal Assessment and Plan Assessment and plan (1) History of colon polyps: Code(s): Z86.010 - Personal history of colon polyps Status: Acute Assessment and Plan: The patient is deemed a good candidate for the procedure. Consent signed. Will proceed.
[2024-04-16] MEDS: LACTATED RINGERS 1,000 ML 150 ML IV CONT (13:19)
[2024-04-16 13:21] LABS: Glucose Point of Care 129 mg/dl (65-105)
[2024-04-16 13:48] VITALS: BP 118/64; PULSE 67; RESP 20; O2SAT 100
[2024-04-16 13:58] VITALS: BP 128/71; PULSE 69; RESP 20; O2SAT 98
[2024-04-16 14:08] VITALS: BP 150/69; PULSE 63; RESP 15; O2SAT 96
== END 2024-04-16 14:38 | disposition home or self-care (01) ==
PROVIDERS: PCP Internal Medicine; Visit Provider Internal Medicine Gastroenterology
PROC: 0DJD8ZZ Inspection of Lower Intestinal Tract, Via Natural or Artificial Opening Endoscopic (ICD-10-PCS; CPT 45378; principal; 2024-04-16 14:00)
DX: Z09 Encounter for follow-up examination after completed treatment for conditions other than malignant neoplasm (principal); D12.2 Benign neoplasm of ascending colon; D12.4 Benign neoplasm of descending colon; K57.30 Diverticulosis of large intestine without perforation or abscess without bleeding; I13.0 Hypertensive heart and chronic kidney disease with heart failure and stage 1 through stage 4 chronic kidney disease, or unspecified chronic kidney disease; I50.30 Unspecified diastolic (congestive) heart failure; E11.22 Type 2 diabetes mellitus with diabetic chronic kidney disease; N18.9 Chronic kidney disease, unspecified; J44.9 Chronic obstructive pulmonary disease, unspecified; I25.10 Atherosclerotic heart disease of native coronary artery without angina pectoris; Z95.5 Presence of coronary angioplasty implant and graft; E89.0 Postprocedural hypothyroidism; F41.8 Other specified anxiety disorders; E78.5 Hyperlipidemia, unspecified; E55.9 Vitamin D deficiency, unspecified; M35.3 Polymyalgia rheumatica; Z87.891 Personal history of nicotine dependence; F12.90 Cannabis use, unspecified, uncomplicated; Z79.84 Long term (current) use of oral hypoglycemic drugs; Z79.82 Long term (current) use of aspirin
CPT/HCPCS: 45385; 82948; 88305; J2003; J2704; J7120

== ENCOUNTER 2024-05-13 14:14 | Outpatient (CLI) | payer MEDICARE, SELFPAY ==
[2024-05-13 15:23] LABS: Creatinine Urine 85.1 mg/dL
[2024-05-13 15:24] LABS: MALB Creatinine Ratio 75.9 mg/g (0-30); Microalbumin Urine Random 64.6 mg/L (0-16.7)
[2024-05-13 15:50] LABS: Cholesterol 161 mg/dL (0-200); HDL Direct 70 mg/dL; Triglycerides 179 mg/dL (<150)
[2024-05-13 16:01] LABS: LDL Cholesterol Direct 53 mg/dL
[2024-05-13 16:22] LABS: Thyroid Stimulating Hormone 0.037 uIU/mL (0.465-4.680)
[2024-05-13 16:25] LABS: Hemoglobin A1C 6.2 % (<5.7)
[2024-05-13 19:14] LABS: Free T4 Free Thyroxine 1.89 ng/dL (0.78-2.19); Vitamin D 25 Hydroxy 67.5 ng/mL
== END 2024-05-13 14:15 | disposition home or self-care (01) ==
LOC: ANHLAB 14:17
PROVIDERS: PCP Internal Medicine; Visit Provider Internal Medicine
DX: E11.69 Type 2 diabetes mellitus with other specified complication (principal); Z79.4 Long term (current) use of insulin; E78.5 Hyperlipidemia, unspecified; E55.9 Vitamin D deficiency, unspecified; E03.9 Hypothyroidism, unspecified
CPT/HCPCS: 36415; 80061; 82043; 82306; 83036; 84439; 84443

== ENCOUNTER 2024-06-17 13:32 | Outpatient (CLI) | payer MEDICARE, SELFPAY ==
--- NOTE | ~2024-06-17 | CT_ITS ---
EXAMINATION: CT brain wo con DATE: 06/17/2024 14:35 INDICATION: Dizziness and giddiness. TECHNIQUE: Computed tomography (CT) of the head was performed without intravenous contrast. The mA wa s adjusted according to patient size. Iterative reconstruction technique was employed. The dose-lengt h product was 605.33 mGy-cm. COMPARISON: Head CT 12/08/2022 FINDINGS: There are scattered areas of low attenuation in the cerebral white matter. There is no intr acranial hemorrhage, acute infarction, or abnormal intracranial mass lesion. The ventricles are jewels l in size. The paranasal sinuses are clear. There are likely changes of ocular lens replacement surge jennie. The mastoid air cells are normal. IMPRESSION: 1. Stable extensive nonspecific cerebral white matter disease, which likely represents chronic small vessel ischemic disease. Reviewed, dictated and finalized at location A. R'S TENDER IMPRESSION: 1. Stable extensive nonspecific cerebral white matter disease, which likely rep resents chronic small vessel ischemic disease.
--- OUTSIDE RECORDS SUMMARY | 2024-06-17 13:37 | XMS_ITS | Referral Summary ---
Author Organization [facility] [place] [address] Address [address] [place] [address] Care Team Providers Care City Route Driver Name Role Phone Felix Powell MD Primary Care Provider [phone] Allergies Active Allergy Reactions Criticality Noted Date Comments Iodine And Iodide Containing Products Morphine Medications rosuvastatin (CRESTOR) 40 mg tablet take 1 Tablet by oral route every day 0 0 3 Active aspirin 81 mg tabletIndications :Myocardial Reinfarction Prevention Take 1 tablet (81 mg total) by mouth daily. 30 tablet 11 8 12/26/19 25 Active gabapentin (NEURONTIN) 100 mg capsule Take 1 capsule (100 mg total) by mouth 2 (two) times a day Active metoprolol XL (TOPROL-XL) 50 mg extended release tablet Take 1 tablet (50 mg total) by mouth daily Active montelukast (SINGULAIR) 10 mg tablet Take 1 tablet (10 mg total) by mouth nightly Active escitalopram (LEXAPRO) 20 mg tablet Take 1 tablet (20 mg total) by mouth daily Active levothyroxine (SYNTHROID) 137 mcg tablet Take 1 tablet (137 mcg total) by mouth switcher before breakfast Active buPROPion XL (WELLBUTRIN XL) 300 mg 24 hr tablet Take 1 tablet (300 mg total) by mouth daily Active pantoprazole DR (PROTONIX) 40 mg EC tablet Take 1 tablet (40 mg total) by mouth daily Active linaGLIPtin (TRADJENTA) 5 mg tabletIndications :type 2 diabetes mellitus Take 1 tablet (5 mg total) by mouth daily Active nitroglycerin (NITROSTAT) 0.4 mg SL tabletIndications :Coronary artery disease involving [place] coronary artery of [place] heart without angina pectoris Place 1 tablet (0.4 mg total) under the tongue every 5 (five) minutes as needed for chest pain May repeat dose q 5 min, up to 3 doses total 25 tablet 1 1 12/26/19 25 Active baclofen (LIORESAL) 5 mg tablet TAKE 1 TABLET BY MOUTH THREE TIMES DAILY NEEDED FOR MUSCLE SPASM 1 Active predniSONE (DELTASONE) 5 mg tablet 1 Active traMADoL (ULTRAM) 50 mg tablet Take by mouth every 6 (six) hours as needed 1 Active acetaminophen (TYLENOL) 325 mg tablet Take 2 tablets (650 mg total) by mouth every 6 (six) hours as needed for pain Active empagliflozin-arleth agliptin 10-5 mg tablet Take 1 tablet by mouth daily Active cyanocobalamin, vitamin B-12, (VITAMIN B-12 ORAL) Take by mouth Active folic acid (FOLVITE) 1 mg tablet Take 1 tablet (1 mg total) by mouth daily Active metFORMIN XR (GLUCOPHAGE XR) 500 mg 24 hr tablet Take 2 tablets (1,000 mg total) by mouth 2 (two) times a day 2 Active Active Problems Problem Noted Date Diagnosed Date Chronic obstructive pulmonary disease 02/23/2021 LBBB (left bundle branch block) 02/23/2021 PMR (polymyalgia rheumatica) ([facility]) 1 Hyperlipidemia LDL goal <70 02/23/2021 Essential hypertension 02/23/2021 Former smoker 02/23/2021 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lving [place] coronary artery of [place] heart without angina pectoris 06/19/2017 History of coronary artery stent placement 06/19 Social History Tobacco Use Types Packs/Day Years Used Date Smoking Tobacco: Former Smokeless Tobacco: Never Tobacco Cessation:Counseling Given: Not Answered Alcohol Use Standard Drinks/Week Comments No 0 (1 standard drink = 0.6 oz pur e alcohol) Comments Unknown Sex and Gender Information Value Date Recorded Sex Assigned at Not on file 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 Gender Identity Female 09/29/2020 9:57 AM CDT Sexual Orientation Straight 09/29/2020 9: 57 AM CDT Last Filed Vital Signs Vital Sign Reading Time Taken Comments Blood Pressure 132/82 12/26/2023 11:32 AM CDT Pulse 60 12/26/2023 11:32 AM CDT Temperature - - Respiratory Rate 16 12/26/2023 11:32 AM CDT Oxygen Saturation 95% 06/17/2023 11:19 AM NICKING MACHINE OPERATOR Inhaled Oxygen Concentration - - Weight 86.6 kg (191 lb) 12/26/2023 11:32 AM CDT Height 170.2 cm (5' 7 ) 12/26/2023 11:32 AM CDT Body Mass Index 29.91 12/26/2023 11:32 AM CDT Plan of Treatment Not on file Insurance [facility] BCBS MEDICARE [place] MEDICARE SOLUTIONS Care Teams City Route Driver Relationship Specialty Start Date End Date Felix Powell MD [address] [place] [address] PCP - General 05/24/13
--- OUTSIDE RECORDS SUMMARY | 2024-06-17 13:37 | XMS_ITS | Clinical Summary ---
Author Organization [facility] Address [facility] [place] [address] Care Team Providers Care Disability Counselor Name Role Phone Felix Powell MD Primary Care Provider [phone] Allergies Active Allergy Reactions Criticality Noted Date Comments Iodine Hives Low 03/15/2022 Morphine Hallucinations 09/04/2022 Medications aspirin EC (ECOTRIN) 81 MG tablet Take 1 tablet (81 mg total) by mouth daily. Active Cyanocobalamin 100 MCG Tab Active buPROPion XL (WELLBUTRIN XL) 300 MG 24 hr tablet Take 1 tablet (300 mg total) by mouth daily. Active pantoprazole EC (PROTONIX) 40 MG tablet Take 1 tablet (40 mg total) by mouth daily. Active rosuvastatin (CRESTOR) 40 MG tablet Take 1 tablet (40 mg total) by mouth nightly at bedtime. Active LORazepam (ATIVAN) 0.5 MG tablet Take 1 tablet (0.5 mg total) by mouth 2 (two) times daily as needed for Anxiety. Active Ascorbic Acid 1000 MG Tab Take 2 tablets by mouth daily. Active biotin 300 MCG Tab Take 1 tablet (300 mcg total) by mouth daily. Active nitroglycerin (NITROSTAT) 0.[address] 1 tablet (0.4 mg total) under the tongue every 5 (five) minutes as needed for Chest Pain. Active glucosamine-ch ondroitin 500-400 MG Cap Take 1 capsule by mouth daily. Active acetaminophen (TYLENOL) 325 MG tablet Take 1 tablet (325 mg total) by mouth every 4 (four) hours as needed for Pain. Active vitamin D3, cholecalcifero l, 1000 UNIT Tab tablet Take 2 tablets (2,000 Units total) by mouth daily. Active escitalopram (LEXAPRO) 20 MG tablet Take 1 tablet (20 mg total) by mouth daily. Active metoprolol succinate ER (TOPROL-XL) 50 MG 24 hr tablet Take by mouth daily. Active montelukast (SINGULAIR) 10 MG tablet Take 1 tablet (10 mg total) by mouth nightly at bedtime. Active omega-3 acid (FISH OIL) 1000 MG capsule Take 4 capsules (4,000 mg total) by mouth 2 (two) times daily. Active sucralfate (CARAFATE) 1 G tablet Take 1 tablet (1 g total) by mouth 2 (two) times daily with meals. Active Turmeric Curcumin 500 MG Cap Take 1,000 mg by mouth daily. Active furosemide (LASIX) 40 MG tablet Take 1 tablet (40 mg total) by mouth daily as needed (for weight gain). Active traMADol (ULTRAM) 50 MG tablet Take 1 tablet (50 mg total) by mouth every 6 (six) hours as needed for Pain. Active metFORMIN (GLUCOPHAGE) 500 MG tablet Take 1 tablet (500 mg total) by mouth 2 (two) times daily with meals. Active levothyroxine (SYNTHROID) 125 MCG tablet Take 1 tablet (125 mcg total) by mouth every morning. Active gabapentin (NEURONTIN) 100 MG capsule Take 2 capsules (200 mg total) by mouth 3 (three) times daily. Active HYDROcodone-ac etaminophen (NORCO) 5-325 MG tablet Take 1 tablet by mouth every 6 (six) hours as needed. 3 Active clopidogrel (PLAVIX) 75 MG tablet Take 1 tablet (75 mg total) by mouth daily. Active Continuous Blood Gluc Sensor (FREESTYLE ASHA 2 SENSOR) [place] see administration instructions. 3 Active BANOPHEN 50 MG Cap capsule 2 Active glimepiride (AMARYL) 2 MG tablet Take 1 tablet (2 mg total) by mouth daily with breakfast. 2 Active folic acid (FOLVITE) 1 MG tablet Take 1 tablet (1 mg total) by mouth daily. Active Active Problems Problem Noted Date Diagnosed Date Sacroiliitis 04/19/2022 Overview (04/19/2022): Added automatically from request for surgery [id number] Social History Tobacco Use Types Packs/Day Years Used Date Smoking Tobacco: Never Smokeless Tobacco: Never Tobacco Cessation:Counseling Given: Not Answered Alcohol Use Standard Drinks/Week Comments Not Currently 0 (1 standard drink = 0.6 oz pur e alcohol) Comments No Sex and Gender Information Value Date Recorded Sex Assigned at Not on file Legal Sex Female 10:18 AM CDT Gender Identity Not on file Sexual Orientation Not on file Last Filed Vital Signs Vital Sign Reading Time Taken Comments Blood Pressure 121/71 09/25/2022 1:36 PM CDT Pulse 72 09/25/2022 1:36 PM CDT Temperature 36.3 C (97.3 F) 09/25/2022 1:16 PM CDT Respiratory Rate 18 09/25/2022 1:36 PM CDT Oxygen Saturation 93% 09/25/2022 1:36 PM CDT Inhaled Oxygen Concentration - - Weight 99.8 kg (220 lb) 09/25/2022 1:16 PM CDT Height 170.2 cm (5' 7 ) 09/25/2022 1:16 PM CDT Body Mass Index 34.46 09/25/2022 1:16 PM CDT Plan of Treatment Health Maintenance Due Date Last Done Comments Hepatitis C 1963 DTaP, Tdap and Td Vaccines (1 - Tdap) 11/05/1963 Zoster Vaccines (2 of 3) 01/02/2009 11/07/2008 Annual Medicare Wellness Visit 2009 Dexa Scan (General) 2009 Pneumococcal Vaccine: 65+ Years (2 of 2 - PCV) 03/30/2018 03/30/2017 RSV Immunization or 60+ Years (1 - 1-dose 75+ series) 11/05/2019 COVID-19 Vaccine ( season) 2024 03/06/2022, 08/16/2021, 03/13/2021, Additional history exists Influenza Adult (#1) 2024 01/25/2019, 01/06/2017, 02/04/2016, Additional history exists Meningococcal B Vaccine Aged Out No l onger eligible based on patient's age to complete this topic Meningococcal Vaccine Aged Out No raine juma eligible based on patient's age to complete this topic RSV Immunizations Under 20 Months Aged Out No longer eligible based on patient's age to complete this topic Insurance [facility] Care Teams Disability Counselor Relationship Specialty Start Date End Date Felix Powell MD [address] [place] [address] PCP - General INTERNAL MEDICINE 03/15/22
--- OUTSIDE RECORDS SUMMARY | 2024-06-17 13:37 | XMS_ITS | Clinical Summary ---
Author Organization [facility] [place] [address] Address [address] [place] [address] Care Team Providers Care Oil Tester Name Role Phone Felix Powell MD Primary Care Provider [phone] Allergies Active Allergy Reactions Criticality Noted Date [...] 1 tablet (137 mcg total) by mouth weight loss sales consultant before breakfast Active buPROPion XL (WELLBUTRIN XL) [...] mg SL tabletIndications :Coronary artery disease involving [place] coronary artery of [place] heart without angina pectoris Place 1 tablet [...] bundle branch block) 02/23/2021 PMR (polymyalgia rheumatica) ([facility]) 1 Hyperlipidemia LDL goal <70 02/23/2021 Essential hypertension 02/23/2021 Former smoker 02/23/2021 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lving [place] coronary artery of [place] heart without angina pectoris 06/19/2017 History of coronary artery stent placement 06/19 Medical History Medical History Date Comments Hypertension Hypertension Hx Other Medical Diabetes Type I I Hx Other Medical dyslipidemia Adiposity Obesity Family History Medical History Relation Name Comments Heart attack Father 2 Myocardial Infa rction; Relation Name Status Comments Father 1 Alive Father 2 Social History Tobacco Use Types Packs/Day Years Used Date Smoking Tobacco: Former Smokeless Tobacco: Never Tobacco Cessation:Counseling Given: Not Answered Alcohol Use Standard Drinks/Week Comments No 0 (1 standard drink = 0.6 oz pur e alcohol) Comments Unknown Sex and Gender Information Value Date Recorded Sex Assigned at Not on file 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 Gender Identity Female 09/29/2020 9:57 AM CDT Sexual Orientation Straight 09/29/2020 9: 57 AM CDT Obstetrics History Last Filed Vital Signs Vital Sign Reading Time Taken Comments Blood Pressure 132/82 12/26/2023 11:32 AM CDT Pulse 60 12/26/2023 11:32 AM CDT Temperature - - Respiratory Rate 16 12/26/2023 11:32 AM CDT Oxygen Saturation 95% 06/17/2023 11:19 AM FIELD SALES ENGINEER Inhaled Oxygen Concentration - - Weight 86.6 kg (191 lb) 12/26/2023 11:32 AM CDT Height 170.2 cm (5' 7 ) 12/26/2023 11:32 AM CDT Body Mass Index 29.91 12/26/2023 11:32 AM CDT Plan of Treatment Health Maintenance Due Date Last Done Comments Depression Screening 1944 Fall Risk Assessment 1944 Hepatitis C Screening 1944 Osteoporosis Screening-Bone Density Scan 1944 DTaP/Tdap/Td Vaccine (1 - Tdap) 11/05/1955 Hepatitis B Screening 1962 Zoster Vaccine (2 of 3) 01/02/2009 11/07/2008 Well Visit 65+ 2009 Pneumococcal vaccine 65+ (2 of 2 - PCV) 03/30/2018 03/30/2017, 11/06/2009 Influenza Vaccine (#1) 2024 9, 01/06/2017, 02/04/2016, Additional history exists Insurance [facility] BCBS MEDICARE [place] MEDICARE SOLUTIONS Care Teams Oil Tester Relationship Specialty Start Date End Date Felix Powell MD [address] [facility] [address] [place] [address] PCP - General 05/24/13
[2024-06-17 14:29] LABS: Basophils Absolute Auto 0.1 K/mm3 (0.0-0.1); Basophils Percent Auto 0.7 % (0.2-1.2); Eosinophils Absolute Auto 0.1 K/mm3 (0-0.3); Hematocrit 41.4 % (37.0-47.0); Hemoglobin 13.6 g/dL (12.0-15.0); Immature Granulocyte Absolute 0.04 K/mm3 (0.00-0.031); Immature Granulocyte Percent A 0.5 % (0-0.5); Lymphocytes Absolute Auto 2.28 K/mm3 (0.9-3.2); Lymphocytes Percent Auto 27.7 % (18.3-44.2); Mean Corpuscular HGB Conc 32.9 g/dl (32-36); Mean Corpuscular Hemoglobin 28.3 pg (26-34); Mean Corpuscular Volume 86.3 fl (80-100); Mean Platelet Volume 10.1 fl (7.4-10.4); Monocytes Absolute Auto 0.7 K/mm3 (0.1-0.6); Neutrophils Absolute Auto 5.1 K/mm3 (1.3-6.7); Neutrophils Percent Auto 62.1 % (45.5-73.1); Platelet Count Result 188 k/mm3 (150-375); Red Cell Distribution Width 14.6 % (11.5-14.5); White Blood Count 8.2 K/mm3 (4.5-10.0)
[2024-06-17 14:37] LABS: Anion Gap 11 mmol/L (4-12); Blood Urea Nitrogen 16 mg/dL (7-17); CRP < 0.5 mg/dL (<1.0); Calcium 10.3 mg/dL (8.4-10.2); Carbon Dioxide 23 mmol/L (22-30); Chloride 104 mmol/L (98-107); Estimated Glomerular Filt Rate > 60; Glucose 92 mg/dL (65-110); Potassium 4.3 mmol/L (3.4-5.0); Sodium 138 mmol/L (137-145)
[2024-06-17 14:52] LABS: Erythrocyte Sedimentation Rate 15 mm/hr (0-20)
== END 2024-06-17 13:33 | disposition home or self-care (01) ==
PROVIDERS: PCP Internal Medicine; Visit Provider Internal Medicine
DX: R42 Dizziness and giddiness (principal); M35.3 Polymyalgia rheumatica; Z79.899 Other long term (current) drug therapy; R41.89 Other symptoms and signs involving cognitive functions and awareness; R90.82 White matter disease, unspecified
CPT/HCPCS: 36415; 70450; 80048; 85025; 85652; 86140

== ENCOUNTER 2024-08-18 09:59 | Outpatient (CLI) | payer MEDICARE, SELFPAY ==
--- NOTE | ~2024-08-18 | XR_ITS ---
EXAMINATION: XR UGI w barium swallow DATE: 08/18/2024 11:16 INDICATION: Unspecified abdominal pain. TECHNIQUE: The patient drank thick barium, gas-producing crystals, and thin barium. A total of 1381 f luoroscopic spot radiographs of the hypopharynx, esophagus, stomach and proximal small bowel were obt ained. Fluoroscopy exposure time was 3.0 minutes. Total DAP was 18.57 Gycm^2. COMPARISON: None. FINDINGS: The pharynx is symmetric and without evidence of mass lesion or mucosal irregularity. The esophagus i s normal without mass or stricture. Esophageal motility is normal. There is a small sliding-type hiat al hernia with gastroesophageal junction approximately 3 cm above level of the diaphragm. There was n o gastroesophageal reflux with provocative maneuvers. The stomach and proximal small bowel are normal . IMPRESSION: 1. Small sliding-type hiatal hernia with no gastroesophageal reflux with provocative maneuvers. Reviewed, dictated and finalized at location A. IMPRESSION: 1. Small sliding-type hiatal hernia with no gastroesophageal reflux with provoc ative maneuvers.
--- OUTSIDE RECORDS SUMMARY | 2024-08-18 10:57 | XMS_ITS | Clinical Summary ---
Author Organization [facility] Address [facility] [place] [address] Care Team Providers Care Global Mobility Specialist Name Role Phone Felix Powell MD Primary Care Provider [phone] Allergies Active Allergy Reactions Criticality Noted Date [...] Blood Gluc Sensor (FREESTYLE ASHA 2 SENSOR) [facility] see administration instructions. 3 Active BANOPHEN 50 MG Cap capsule 2 Active glimepiride (AMARYL) 2 MG tablet Take 1 tablet (2 mg total) by mouth daily with breakfast. 2 Active folic acid (FOLVITE) 1 MG tablet Take 1 tablet (1 mg total) by mouth daily. Active Active Problems Problem Noted Date Diagnosed Date Sacroiliitis 04/19/2022 Overview (04/19/2022): Added automatically from request for surgery [id number] Social History Tobacco Use Types Packs/Day Years [...] 2009 Dexa Scan (General) 2009 Pneumococcal Vaccine: 50+ Years (2 of 2 - PCV) 03/30/2018 03/30/2017 RSV Immunization or 60+ Years (1 - 1-dose 75+ series) 11/05/2019 COVID-19 Vaccine ( season) 2024 03/06/2022, 08/16/2021, 03/13/2021, Additional history exists Meningococcal B Vaccine Aged Out No l onger eligible based on patient's age to complete this topic Meningococcal Vaccine Aged Out No raine juma eligible based on patient's age to complete this topic RSV Immunizations Under 20 Months Aged Out No longer eligible based on patient's age to complete this topic Insurance [facility] Care Teams Global Mobility Specialist Relationship Specialty Start Date End Date Felix Powell MD [address] - [facility] [address] [place] [address] PCP - General INTERNAL MEDICINE 03/15/22
--- OUTSIDE RECORDS SUMMARY | 2024-08-18 10:58 | XMS_ITS | Clinical Summary ---
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 Active buPROPion XL (WELLBUTRIN XL) [...] mg SL tabletIndications :Coronary artery disease involving [place] coronary artery of [place] heart without angina pectoris Place 1 tablet [...] bundle branch block) 02/23/2021 PMR (polymyalgia rheumatica) 02/23/2021 Hyperlipidemia LDL goal <70 02/23/2021 Essential hypertension 02/23/2021 Former smoker 02/23/2021 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lving [place] coronary artery of [place] heart without angina pectoris 06/19/2017 History of [...] on file 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 Gender Identity Female 09/29/2020 9:57 AM CDT Sexual Orientation Straight 09/29/2020 9: 57 AM CDT Obstetrics History Last Filed Vital Signs Vital Sign Reading Time Taken Comments Blood Pressure 132/82 12/26/2023 11:32 AM CDT Pulse 60 12/26/2023 11:32 AM CDT Temperature - - Respiratory Rate 16 12/26/2023 11:32 AM CDT Oxygen Saturation 95% 06/17/2023 11:19 AM CORPORATE DEVELOPMENT ANALYST Inhaled Oxygen Concentration - - Weight 86.6 [...] - PCV) 03/30/2018 03/30/2017, 11/06/2009 Influenza Vaccine (Season Ended) 2025 01/25/2019, 01/06/2017, 02/04/2016, Additional history exists Insurance [facility] BCBS MEDICARE [place] [facility] OTHER Address: [address] [place] [address] [facility] UHC MEDICARE ADVANTAGE Care Teams Locum Tenens Psychiatrist Relationship Specialty Start Date End Date Felix Powell MD [address] [facility] [address] [facility] [address] [place] [address] PCP - General 05/24/13
--- OUTSIDE RECORDS SUMMARY | 2024-08-18 10:58 | XMS_ITS | Referral Summary ---
Author Organization [facility] [address] Address [address] [place] [address] Care Team Providers Care Direct Sales Representative Name Role Phone Felix Powell MD Primary Care Provider [phone] Allergies Active Allergy Reactions Criticality Noted Date [...] 1 tablet (137 mcg total) by mouth cosmetic surgeon before breakfast Active buPROPion XL (WELLBUTRIN XL) [...] mg SL tabletIndications :Coronary artery disease involving jackson coronary artery of jackson heart without angina pectoris Place 1 tablet [...] smoker 02/23/2021 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lving jackson coronary artery of jackson heart without angina pectoris 06/19/2017 History of [...] on file 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 Gender Identity Female 09/29/2020 9:57 AM CDT Sexual Orientation Straight 09/29/2020 9: 57 AM CDT Last Filed Vital Signs Vital Sign Reading Time Taken Comments Blood Pressure 132/82 12/26/2023 11:32 AM CDT Pulse 60 12/26/2023 11:32 AM CDT Temperature - - Respiratory Rate 16 12/26/2023 11:32 AM CDT Oxygen Saturation 95% 06/17/2023 11:19 AM SPIKE MACHINE HEATER Inhaled Oxygen Concentration - - Weight 86.6 kg (191 lb) 12/26/2023 11:32 AM CDT Height 170.2 cm (5' 7 ) 12/26/2023 11:32 AM CDT Body Mass Index 29.91 12/26/2023 11:32 AM CDT Plan of Treatment Not on file Insurance [facility] BCBS MEDICARE [place] [facility] MEDICARE ADVANTAGE Care Teams Direct Sales Representative Relationship Specialty Start Date End Date Felix Powell MD [address] [place] [address] PCP - General 05/24/13
== END 2024-08-18 10:00 | disposition home or self-care (01) ==
PROVIDERS: PCP Internal Medicine; Visit Provider Internal Medicine
DX: R10.9 Unspecified abdominal pain (principal); K44.9 Diaphragmatic hernia without obstruction or gangrene
CPT/HCPCS: 74240

== ENCOUNTER 2024-08-25 11:53 | Outpatient (CLI) | payer MEDICARE, SELFPAY ==
--- NOTE | ~2024-08-25 | MMUS_ITS ---
EXAMINATION: MM diagnostic amximus BI w stephenie, US breast LT limited HISTORY: Comparison to multiple prior studies sequentially, with oldest reviewed study dated 020. TECHNIQUE: Additional 3-D tomosynthesis images of the breasts were performed and synthetic 2-D images were generated. CAD analysis was submitted and interpreted. High resolution Limited left breast ultr asound was performed. COMPARISON: Comparison to multiple prior studies sequentially, with oldest reviewed study dated . BREAST PARENCHYMAL COMPOSITION: Comparison to multiple prior studies sequentially, with oldest review ed study dated 06/11/2019. FINDINGS: MAMMOGRAPHIC FINDINGS: The left breast is stable without evidence for malignancy. There are new clustered indeterminate calc ifications in the lower outer quadrant of the right breast, posterior third. ULTRASOUND: Limited left breast ultrasound: At 12:00, 4 cm from the nipple there is a small round 2 mm hypoechoic mass, likely benign. IMPRESSION: 1. New clustered indeterminate right breast calcifications, lower outer quadrant, posterior third. Re commend stereotactic biopsy. 2. Probable complicated cyst of the left breast at 12:00, 4 cm from the nipple. Six-month follow-up L imited left breast ultrasound recommended. BI-RADS category 4, suspicious findings. Reviewed, dictated and finalized at location A. IMPRESSION: 1. New clustered indeterminate right breast calcifications, lower outer quadran t, posterior third. Recommend stereotactic biopsy. 2. Probable complicated cyst of the left breast at 12:00, 4 cm from the nipple. Six-month follow-up Limited left breast ultrasound recommended. BI-RADS category 4, suspicious findings.
== END 2024-08-25 11:54 | disposition home or self-care (01) ==
PROVIDERS: PCP Internal Medicine; Visit Provider Internal Medicine
DX: R92.8 Other abnormal and inconclusive findings on diagnostic imaging of breast (principal)
CPT/HCPCS: 76642; 77062; 77066; G0279

== ENCOUNTER 2024-09-22 14:25 | Outpatient (CLI) | payer MEDICARE, SELFPAY ==
--- OUTSIDE RECORDS SUMMARY | 2024-09-22 14:35 | XMS_ITS | Encounter Summary ---
Author Organization [facility] Address [address] [place] [address] Care Team Providers Care Casting Tester Name Role Phone Felix Powell MD Primary Care Provider [phone] Reason for Visit * Diagnostic Imaging (Routine) - Pending Review Specialty Diagnoses / Procedures Referred By Danyell stinson Referred To Contact Procedures Breast Imaging Diagnostic Outside Reference Transcribed Order, Provider Referral ID Status Reason Start Date Expiration Date V isits Requested Visits Authorized [id number] Pending Review 09/06/2024 10/06/2025 1 1 Encounter Details Date Type Department Care Team (Late st Contact Info) Description 01/27/2019 Hospital Encounter [facility] [address], [place] [id number] Social History Tobacco Use Types Packs/Day Years Used Date Smoking Tobacco: Former Smokeless Tobacco: Never Alcohol Use Standard Drinks/Week Comments No 0 (1 standard drink = 0.6 oz pur e alcohol) Comments Unknown Sex and Gender Information Value Date Recorded Sex Assigned at Not on file 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 There will be no report generated by a [facility] Radiologist. Narrative [facility] - 09/06/2024 2:42 PM CDT EXAMINATION: Images For Reference Purposes Only us Provider Transcribed Order IMG MAMMO PROCEDURES Final Result [facility] documented in this encounter Visit Diagnoses Not on filedocumented in this encounter Care Teams Casting Tester Relationship Specialty Start Date End Date Felix Powell MD [address] [facility] [address] [place] [address] PCP - General 05/24/13 documented as of this encounter
--- OUTSIDE RECORDS SUMMARY | 2024-09-22 14:35 | XMS_ITS | Referral Summary ---
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 Role Phone Felix Powell MD Primary Care Provider [phone] Encounters Date Type Department Care Team Description 09/13/2024 8:51 AM CDT - 09/13/2024 11:59 PM CDT Hospital Encounter [facility] - Breast Imaging [address] [facility] [address] [place] [address] Abnormal mammogram Discharge Disposition: Discharge to home or self care 09/13/2024 8:52 AM CDT - 09/13/2024 11:59 PM CDT Hospital Encounter [facility] - Breast Imaging [address] [facility] [address] [place] [address] Abnormal mammogram Discharge Disposition: Discharge to home or self care 09/06/2024 5:21 PM CDT - 09/06/2024 11:59 PM CDT Hospital Encounter [facility] [address] [place] [id number] Discharge Disposition: Discharge to home or self care 09/06/2024 Orders Only [facility] [address] [place] [address] ProviderCheryle MD 09/03/2024 11:30 AM CDT Office Visit [facility] at [address] [place] [address] Paulo Veloz MD 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 (Primary Dx); Essential hypertension; Hyperlipidemia LDL goal <70; LBBB (left bundle branch block); Former smoker; Pulmonary hypertension (HCC) 08/25/2024 12:05 AM CDT - 08/25/2024 11:59 PM CDT Hospital Encounter [facility] ([facility]) [address] [place] [address] Discharge Disposition: Discharge to home or self care 08/25/2024 - 08/25/2024 11:59 PM CDT Hospital Encounter [facility]) [address] [place] [place] [address] Discharge Disposition: Discharge to home or self care from Last 3 Months Allergies Active Allergy Reactions Criticality Noted Date [...] 1 tablet (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 total) 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 Active buPROPion XL (WELLBUTRIN XL) [...] mg SL tabletIndications :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 Place 1 tablet [...] Active Problems Problem Noted Date Diagnosed Date Pulmonary hypertension 09/03/2024 Chronic obstructive pulmonary disease 02/23/2021 LBBB (left bundle branch block) 02/23/2021 PMR (polymyalgia rheumatica) 02/23/2021 Hyperlipidemia LDL goal <70 02/23/2021 Essential hypertension 02/23/2021 Former smoker 02/23/2021 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lving akhiok coronary artery of akhiok heart without angina pectoris 06/19/2017 History of [...] on file 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 Gender Identity Female 09/29/2020 9:57 AM CDT Sexual Orientation Straight 09/29/2020 9: 57 AM CDT Last Filed Vital Signs Vital Sign Reading Time Taken Comments Blood Pressure 108/60 09/03/2024 11:26 AM CDT Pulse 84 09/03/2024 11:26 AM CDT Temperature - - Respiratory Rate 16 12/26/2023 11:32 AM CDT Oxygen Saturation 90% 09/03/2024 11:26 AM CDT Inhaled Oxygen Concentration - - Weight 77.6 kg (171 lb) 09/03/2024 11:26 AM CDT Height 170.2 cm (5' 7 ) 09/03/2024 11:26 AM CDT Body Mass Index 26.78 09/03/2024 11:26 AM CDT Plan of Treatment Not on file Procedures Procedure Name Priority Date/Time Associated Diagnosis Comments US BREAST LEFT LIMITED Schedule Routine, Read Routine (OP Routine) 09/13/2024 11:18 AM CDT Abnormal mammogram DIAGNOSTIC MAMMOGRAM RIGHT W JOSE Schedule Routine, Read Routine (OP Routine) 09/13/2024 11:18 AM CDT Abnormal mammogram BREAST IMAGING MG DIAGNOSTIC OUTSIDE CONSULT Routine 09/06/2024 5:22 PM CDT BREAST IMAGING US OUTSIDE REFERENCE Routine 08/25/2024 12:05 AM CDT BREAST IMAGING MG DIAGNOSTIC OUTSIDE REFERENCE Routine 08/25/2024 12:00 AM CDT from Last 3 Months Results * US Breast Left Limited (09/13/2024 11:18 AM CDT) Anatomical Region Laterality Modality Breast Left Ultrasound 09/13/2024 12:2 4 PM CDT Impressions 09/13/2024 12:24 PM CDT Probably benign diffuse right breast microcalcifications with layering on the ML images, not significantly changed from multiple prior examinations. Differences seen on the outside exam are likely due to differences in technique and were not reproduced on the additional images. Dr. Michelle Raya discussed the above findings and recommendations with the patient. OVERALL FINAL ASSESSMENT: BI-RADS Category 3: Probably Benign. RECOMMENDATION: Recommend follow-up diagnostic breast imaging in 6 months with right breast mammogram. Electronically signed by: Michelle Raya M.D. Narrative 09/13/2024 12:24 PM CDT EXAMINATION: DIAGNOSTIC MAMMOGRAM RIGHT W JOSE, US BREAST LEFT LIMITED HISTORY: 78-year-old female with history of benign left breast stereotactic guided biopsy yielding fibrocystic change for microcalcifications, and right breast benign ultrasound biopsy yielding benign fatty tissue. Patient presented to an outside institution on 08/25/2024 where a right breast microcalcifications were visualized for which stereotactic guided biopsy was recommended. Patient presents for magnification views of the right breast which were not previously obtained. COMPARISON: Priors dating back to 2019 TECHNIQUE: Full field digital mammographic views of the RIGHT breast were performed, including computer aided detection (CAD) digital breast tomosynthesis (DBT). Directed ultrasound evaluation of the LEFT breast was performed by the outside [employer]. BREAST PARENCHYMAL COMPOSITION: The breasts are heterogenously dense, which may obscure small masses. MAMMOGRAM FINDINGS: Reidentified are diffuse right breast microcalcifications that demonstrate an amorphous appearance on the CC views and layering on the ML views, seen throughout the entire right breast. These are not significantly changed from multiple prior examinations on the additional views. The calcifications in the upper central breast appeared more prominent previously due to differences in technique; with today's images compared to older examinations demonstrate no significant change from prior exams. These are similar in appearance to the left breast microcalcifications which yielded fibrocystic change. SONOGRAM FINDINGS: 12:00 3 cm from the nipple (previously labeled 12:00 4 cm from the nipple, there is a 0.3 x 0.3 cm complicated cyst, benign. Procedure Note Michelle Raya MD - 09/13/2024 EXAMINATION: DIAGNOSTIC MAMMOGRAM RIGHT W JOSE, US BREAST LEFT LIMITED HISTORY: 78-year-old female with history of benign left breast stereotactic guided biopsy yielding fibrocystic change for microcalcifications, and right breast benign ultrasound biopsy yielding benign fatty tissue. Patient presented to an outside institution on 08/25/2024 where a right breast microcalcifications were visualized for which stereotactic guided biopsy was recommended. Patient presents for magnification views of the right breast which were not previously obtained. COMPARISON: Priors dating back to 2019 TECHNIQUE: Full field digital mammographic views of the RIGHT breast were performed, including computer aided detection (CAD) digital breast tomosynthesis (DBT). Directed ultrasound evaluation of the LEFT breast was performed by the outside [employer]. BREAST PARENCHYMAL COMPOSITION: The breasts are heterogenously dense, which may obscure small masses. MAMMOGRAM FINDINGS: Reidentified are diffuse right breast microcalcifications that demonstrate an amorphous appearance on the CC views and layering on the ML views, seen throughout the entire right breast. These are not significantly changed from multiple prior examinations on the additional views. The calcifications in the upper central breast appeared more prominent previously due to differences in technique; with today's images compared to older examinations demonstrate no significant change from prior exams. These are similar in appearance to the left breast microcalcifications which yielded fibrocystic change. SONOGRAM FINDINGS: 12:00 3 cm from the nipple (previously labeled 12:00 4 cm from the nipple, there is a 0.3 x 0.3 cm complicated cyst, benign. IMPRESSION: Probably benign diffuse right breast microcalcifications with layering on the ML images, not significantly changed from multiple prior examinations. Differences seen on the outside exam are likely due to differences in technique and were not reproduced on the additional images. Dr. Michelle Raya discussed the above findings and recommendations with the patient. OVERALL FINAL ASSESSMENT: BI-RADS Category 3: Probably Benign. RECOMMENDATION: Recommend follow-up diagnostic breast imaging in 6 months with right breast mammogram. Electronically signed by: Michelle Raya M.D. us Ladonna Louise MD IM MAMMO PROCEDURES Final R esult * Diagnostic Mammogram Right W Jose (09/13/2024 11:18 AM CDT) Anatomical Region Laterality Modality Breast Right Mammography 09/13/2024 12:2 4 PM CDT Impressions 09/13/2024 12:24 PM CDT Probably benign diffuse right breast microcalcifications with layering on the ML images, not significantly changed from multiple prior examinations. Differences seen on the outside exam are likely due to differences in technique and were not reproduced on the additional images. Dr. Michelle Raya discussed the above findings and recommendations with the patient. OVERALL FINAL ASSESSMENT: BI-RADS Category 3: Probably Benign. RECOMMENDATION: Recommend follow-up diagnostic breast imaging in 6 months with right breast mammogram. Electronically signed by: Michelle Raya M.D. Narrative 09/13/2024 12:24 PM CDT EXAMINATION: DIAGNOSTIC MAMMOGRAM RIGHT W JOSE, US BREAST LEFT LIMITED HISTORY: 78-year-old female with history of benign left breast stereotactic guided biopsy yielding fibrocystic change for microcalcifications, and right breast benign ultrasound biopsy yielding benign fatty tissue. Patient presented to an outside institution on 08/25/2024 where a right breast microcalcifications were visualized for which stereotactic guided biopsy was recommended. Patient presents for magnification views of the right breast which were not previously obtained. COMPARISON: Priors dating back to 2019 TECHNIQUE: Full field digital mammographic views of the RIGHT breast were performed, including computer aided detection (CAD) digital breast tomosynthesis (DBT). Directed ultrasound evaluation of the LEFT breast was performed by the outside [employer]. BREAST PARENCHYMAL COMPOSITION: The breasts are heterogenously dense, which may obscure small masses. MAMMOGRAM FINDINGS: Reidentified are diffuse right breast microcalcifications that demonstrate an amorphous appearance on the CC views and layering on the ML views, seen throughout the entire right breast. These are not significantly changed from multiple prior examinations on the additional views. The calcifications in the upper central breast appeared more prominent previously due to differences in technique; with today's images compared to older examinations demonstrate no significant change from prior exams. These are similar in appearance to the left breast microcalcifications which yielded fibrocystic change. SONOGRAM FINDINGS: 12:00 3 cm from the nipple (previously labeled 12:00 4 cm from the nipple, there is a 0.3 x 0.3 cm complicated cyst, benign. Procedure Note Michelle Raya MD - 09/13/2024 EXAMINATION: DIAGNOSTIC MAMMOGRAM RIGHT W JOSE, US BREAST LEFT LIMITED HISTORY: 78-year-old female with history of benign left breast stereotactic guided biopsy yielding fibrocystic change for microcalcifications, and right breast benign ultrasound biopsy yielding benign fatty tissue. Patient presented to an outside institution on 08/25/2024 where a right breast microcalcifications were visualized for which stereotactic guided biopsy was recommended. Patient presents for magnification views of the right breast which were not previously obtained. COMPARISON: Priors dating back to 2019 TECHNIQUE: Full field digital mammographic views of the RIGHT breast were performed, including computer aided detection (CAD) digital breast tomosynthesis (DBT). Directed ultrasound evaluation of the LEFT breast was performed by the outside [employer]. BREAST PARENCHYMAL COMPOSITION: The breasts are heterogenously dense, which may obscure small masses. MAMMOGRAM FINDINGS: Reidentified are diffuse right breast microcalcifications that demonstrate an amorphous appearance on the CC views and layering on the ML views, seen throughout the entire right breast. These are not significantly changed from multiple prior examinations on the additional views. The calcifications in the upper central breast appeared more prominent previously due to differences in technique; with today's images compared to older examinations demonstrate no significant change from prior exams. These are similar in appearance to the left breast microcalcifications which yielded fibrocystic change. SONOGRAM FINDINGS: 12:00 3 cm from the nipple (previously labeled 12:00 4 cm from the nipple, there is a 0.3 x 0.3 cm complicated cyst, benign. IMPRESSION: Probably benign diffuse right breast microcalcifications with layering on the ML images, not significantly changed from multiple prior examinations. Differences seen on the outside exam are likely due to differences in technique and were not reproduced on the additional images. Dr. Michelle Raya discussed the above findings and recommendations with the patient. OVERALL FINAL ASSESSMENT: BI-RADS Category 3: Probably Benign. RECOMMENDATION: Recommend follow-up diagnostic breast imaging in 6 months with right breast mammogram. Electronically signed by: Michelle Raya M.D. us Ladonna Louise MD IMG MAMMO PROCEDURES Final R esult * Breast Imaging DX Outside Consult (09/06/2024 5:22 PM CDT) Anatomical Region Laterality Modality Breast N/A Mammography 09/07/2024 9:30 AM CDT Impressions 09/07/2024 10:45 AM CDT 1. Grouped calcifications in the central RIGHT breast and lower outer RIGHT breast are indeterminate. Recommend further evaluation with RIGHT diagnostic mammogram, including magnification views. Pending further diagnostic imaging, recommend stereotactic-guided biopsy of at least the grouped calcifications in the central RIGHT breast. 2. A 0.2 cm mass in the LEFT breast at 12:00, 4 cm from the nipple seen on outside hospital ultrasound is indeterminate. Recommend further evaluation with repeat LEFT breast ultrasound. OVERALL FINAL ASSESSMENT: BI-RADS Category 0: Incomplete - Need Additional Imaging Evaluation. RECOMMENDATION: 1. Additional imaging - diagnostic mammography of the RIGHT breast, including magnification views, and LEFT breast ultrasound. 2. Pending further diagnostic imaging, recommend stereotactic-guided biopsy of at least the grouped calcifications in the central RIGHT breast. NOTE: The findings, conclusions and recommendations within this report do not replace the initial findings, conclusions and recommendations made at the facility where the study was performed based upon the imaging and clinical condition at that time. Review of the prior report and correlation with the clinical history are necessary. The provided images may or may not represent the akhiok source data set and thus may contain changes which may lower the sensitivity of the second opinion interpretation. Dictated by: Jazlyn Marie M.D. The radiology attending physician has personally reviewed this study, and had reviewed and/or edited this written report and agrees with it. Electronically signed by: Celia Herrera M.D. Narrative 09/07/2024 10:45 AM CDT EXAMINATION: REVIEW AND INTERPRETATION OF OUTSIDE IMAGING FACILITY PERFORMING OUTSIDE IMAGING: [place], [place] EXAM(S) REVIEWED: 1. BILATERAL DIAGNOSTIC MAMMOGRAM WITH TOMOSYNTHESIS, 08/25/2024 DATE OF INTERPRETATION: 09/07/2024 HISTORY: 78-year-old woman with RIGHT breast calcifications noted on outside hospital diagnostic mammogram. The patient underwent ultrasound-guided biopsy of a LEFT breast mass at 12:00, 4 cm from the nipple on 08/07/2022 with pathology demonstrating benign fatty tissue and stereotactic-guided biopsy of LEFT upper outer breast calcifications on 08/07/2022 with pathology reportedly demonstrating benign fibrous cystic changes with calcifications. COMPARISON: Prior exams which date back to 01/18/2019, the most recent on 08/07/2022. BREAST PARENCHYMAL COMPOSITION: There are scattered areas of fibroglandular density. FINDINGS: Bilateral diagnostic mammogram on 08/25/2024: There are grouped calcifications in the central RIGHT breast which localized to the central breast on tomosynthesis. There are grouped calcifications in the lower outer RIGHT breast posterior depth. There is no suspicious mass, architectural distortion, or grouped calcifications in the LEFT breast. Outside hospital ultrasound was performed of the LEFT breast on 08/25/2024 and reportedly demonstrated a small round 0.2 cm hypoechoic mass at 12:00, 4 cm from the nipple, which was considered probably benign. Procedure Note Celia Herrera MD - 09/07/2024 EXAMINATION: REVIEW AND INTERPRETATION OF OUTSIDE IMAGING FACILITY PERFORMING OUTSIDE IMAGING: [place], [place] EXAM(S) REVIEWED: 1. BILATERAL DIAGNOSTIC MAMMOGRAM WITH TOMOSYNTHESIS, 08/25/2024 DATE OF INTERPRETATION: 09/07/2024 HISTORY: 78-year-old woman with RIGHT breast calcifications noted on outside hospital diagnostic mammogram. The patient underwent ultrasound-guided biopsy of a LEFT breast mass at 12:00, 4 cm from the nipple on 08/07/2022 with pathology demonstrating benign fatty tissue and stereotactic-guided biopsy of LEFT upper outer breast calcifications on 08/07/2022 with pathology reportedly demonstrating benign fibrous cystic changes with calcifications. COMPARISON: Prior exams which date back to 01/18/2019, the most recent on 08/07/2022. BREAST PARENCHYMAL COMPOSITION: There are scattered areas of fibroglandular density. FINDINGS: Bilateral diagnostic mammogram on 08/25/2024: There are grouped calcifications in the central RIGHT breast which localized to the central breast on tomosynthesis. There are grouped calcifications in the lower outer RIGHT breast posterior depth. There is no suspicious mass, architectural distortion, or grouped calcifications in the LEFT breast. Outside hospital ultrasound was performed of the LEFT breast on 08/25/2024 and reportedly demonstrated a small round 0.2 cm hypoechoic mass at 12:00, 4 cm from the nipple, which was considered probably benign. IMPRESSION: 1. Grouped calcifications in the central RIGHT breast and lower outer RIGHT breast are indeterminate. Recommend further evaluation with RIGHT diagnostic mammogram, including magnification views. Pending further diagnostic imaging, recommend stereotactic-guided biopsy of at least the grouped calcifications in the central RIGHT breast. 2. A 0.2 cm mass in the LEFT breast at 12:00, 4 cm from the nipple seen on outside hospital ultrasound is indeterminate. Recommend further evaluation with repeat LEFT breast ultrasound. OVERALL FINAL ASSESSMENT: BI-RADS Category 0: Incomplete - Need Additional Imaging Evaluation. RECOMMENDATION: 1. Additional imaging - diagnostic mammography of the RIGHT breast, including magnification views, and LEFT breast ultrasound. 2. Pending further diagnostic imaging, recommend stereotactic-guided biopsy of at least the grouped calcifications in the central RIGHT breast. NOTE: The findings, conclusions and recommendations within this report do not replace the initial findings, conclusions and recommendations made at the facility where the study was performed based upon the imaging and clinical condition at that time. Review of the prior report and correlation with the clinical history are necessary. The provided images may or may not represent the [place] source data set and thus may contain changes which may lower the sensitivity of the second opinion interpretation. Dictated by: Jazlyn Marie M.D. The radiology attending physician has personally reviewed this study, and had reviewed and/or edited this written report and agrees with it. Electronically signed by: Celia Herrera M.D. us Ladonna Louise MD IMG MAMMO PROCEDURES Final R esult * Breast Imaging US Outside Reference (08/25/2024 12:05 AM CDT) Impressions [email or web address] - 09/06/2024 2:49 PM CDT These images are for Reference purposes only and have not been reviewed by [facility]. There will be no report generated by a [facility] Radiologist. Narrative [email or web address] - 09/06/2024 2:49 PM CDT EXAMINATION: Images For Reference Purposes Only us Provider Transcribed Order IMG MAMMO PROCEDURES Final Result Performing Organization Address [facility] Co de Phone Number [email or web address] * Breast Imaging Diagnostic Outside Reference (08/25/2024 12:00 AM CDT) Impressions [email or web address] - 09/06/2024 2:42 PM CDT These images are for Reference purposes only and have not been reviewed by [facility]. There will be no report generated by a [facility] Radiologist. 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
--- OUTSIDE RECORDS SUMMARY | 2024-09-22 14:35 | XMS_ITS | Encounter Summary ---
Author Organization [facility] Healthcare Address [address] [place] [address] Care Team Providers Care Time Study Analyst Name Role Phone Felix Powell MD Primary Care Provider [phone] Reason for Visit * Diagnostic Imaging (Routine) - Pending Review Specialty Diagnoses / Procedures Referred By Danyell stinson Referred To Contact Procedures Breast Imaging US Outside Reference Transcribed Order, Provider Referral ID Status Reason Start Date Expiration Date V isits Requested Visits Authorized [id number] Pending Review 09/06/2024 10/06/2025 1 1 Encounter Details Date Type Department Care Team (Late st Contact Info) Description 03/01/2020 Hospital Encounter [facility] [address] [place], [place] [id number] Social History Tobacco Use Types Packs/Day Years Used Date Smoking Tobacco: Former Smokeless Tobacco: Never Alcohol Use Standard Drinks/Week Comments No 0 (1 standard drink = 0.6 oz pur e alcohol) Comments Unknown Sex and Gender Information Value Date Recorded Sex Assigned at Not on file 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
--- OUTSIDE RECORDS SUMMARY | 2024-09-22 14:35 | XMS_ITS | Encounter Summary ---
Author Organization [facility] Healthcare Address [address] [place] [address] Care Team Providers Care Currency Machine Operator Name Role Phone Felix Powell MD Primary Care Provider [phone] Reason for Visit * Diagnostic Imaging (Routine) - Pending Review Specialty Diagnoses / Procedures Referred By Danyell stinson Referred To Contact Procedures Breast Imaging Diagnostic Outside Reference Transcribed Order, Provider Referral ID Status Reason Start Date Expiration Date V isits Requested Visits Authorized [id number] Pending Review 09/06/2024 10/06/2025 1 1 Encounter Details Date Type Department Care Team (Late st Contact Info) Description 02/29/2020 Hospital Encounter [facility]) [address] [place], [place] [id number] Social History Tobacco Use Types Packs/Day Years Used Date Smoking Tobacco: Former Smokeless Tobacco: Never Alcohol Use Standard Drinks/Week Comments No 0 (1 standard drink = 0.6 oz pur e alcohol) Comments Unknown Sex and Gender Information Value Date Recorded Sex Assigned at Not on file Legal Sex Female 2:03 AM CUSTODY OFFICER Gender Identity Female 09/29/2020 9:57 AM CDT [...] only and have not been reviewed by [facility] Radiology. There will be no report generated by a [facility] Radiologist. Narrative [facility]_MAMMO[facility] - 09/06/2024 2:42 PM CDT EXAMINATION: Images For Reference Purposes Only us Provider Transcribed Order IMG MAMMO PROCEDURES Final Result [facility] documented in this encounter Visit Diagnoses Not on filedocumented in this encounter Care Teams Currency Machine Operator Relationship Specialty Start Date End Date Felix Powell MD [address] [facility] [address] [place] [address] PCP - General 05/24/13 documented as of this encounter
--- OUTSIDE RECORDS SUMMARY | 2024-09-22 14:35 | XMS_ITS | Clinical Summary ---
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 Place 1 tablet [...] smoker 02/23/2021 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lving picayune coronary artery of 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 angina pectoris 06/19/2017 History of coronary artery stent placement 06/19 Encounters Date Type Department Care Team Description 09/13/2024 8:52 AM CDT - 09/13/2024 11:59 PM CDT Hospital Encounter [facility] - Breast Imaging [address] [facility] [address] [place] [address] Abnormal mammogram Discharge Disposition: Discharge to home or self care 09/13/2024 8:51 AM CDT - 09/13/2024 11:59 PM CDT Hospital Encounter [facility] - Breast Imaging [address] [facility] Floor [address] [place] [address] Abnormal mammogram Discharge Disposition: Discharge to home or self care 09/06/2024 5:21 PM CDT - 09/06/2024 11:59 PM CDT Hospital Encounter [facility] ([facility]) [address] [place] [address] Discharge Disposition: Discharge to home or self care 09/06/2024 Orders Only [facility] Cardiology [address] [facility] [address] [place] [address] ProviderCheryle MD 09/03/2024 11:30 AM CDT Office Visit [facility] Cardiology at [address] [place] [phone] Paulo Veloz MD 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 (Primary Dx); Essential hypertension; Hyperlipidemia LDL goal <70; LBBB (left bundle branch block); Former smoker; Pulmonary hypertension (HCC) 08/25/2024 12:05 AM CDT - 08/25/2024 11:59 PM CDT Hospital Encounter [facility] ([facility]) [address] [place] [address] Discharge Disposition: Discharge to home or self care 08/25/2024 - 08/25/2024 11:59 PM CDT Hospital Encounter [facility] ([facility]) [address] [place] [address] Discharge Disposition: Discharge to home or self care from Last 3 Months Medical History Medical History Date Comments Hypertension [...] on file Legal Sex Female 2:03 AM YARN WRAPPER Gender Identity Female 09/29/2020 9:57 AM CDT [...] 09/03/2024 11:26 AM CDT Plan of Treatment Health Maintenance [...] 2025 01/25/2019, 01/06/2017, 02/04/2016, Additional history exists Procedures Procedure Name Priority Date/Time Associated Diagnosis [...] the LEFT breast was performed by the financial writer. BREAST PARENCHYMAL COMPOSITION: The breasts are heterogenously [...] the LEFT breast was performed by the financial writer. BREAST PARENCHYMAL COMPOSITION: The breasts are heterogenously [...] IMG MAMMO PROCEDURES Final R esult * Diagnostic [...] the LEFT breast was performed by the financial writer. BREAST PARENCHYMAL COMPOSITION: The breasts are heterogenously [...] the LEFT breast was performed by the financial writer. BREAST PARENCHYMAL COMPOSITION: The breasts are heterogenously [...] images may or may not represent the picayune source data set and thus may contain [...] OF OUTSIDE IMAGING FACILITY PERFORMING OUTSIDE IMAGING: [place], [place] EXAM(S) REVIEWED: 1. BILATERAL DIAGNOSTIC MAMMOGRAM [...] OF OUTSIDE IMAGING FACILITY PERFORMING OUTSIDE IMAGING: [place], [place] EXAM(S) REVIEWED: 1. BILATERAL DIAGNOSTIC MAMMOGRAM [...] images may or may not represent the picayune source data set and thus may contain [...] [facility] Radiologist. Narrative [facility]MAMMO[facility] - 09/06/2024 2:49 PM CDT EXAMINATION: Images For Reference Purposes Only us Provider Transcribed Order IMG MAMMO PROCEDURES Final Result Performing Organization Address City/[facility]/ZIP Co de Phone Number [facility] * Breast [...] MAMMO PROCEDURES Final Result Performing Organization Address City/[facility] Co de Phone Number RAD[facility]MO[facility] from Last 3 Months Insurance [facility] [place] [facility] UHC MEDICARE ADVANTAGE [facility] MED[facility] Address: [address] [address] [place] [address] UHC MEDICARE ADVANTAGE [facility] MED[facility] Address: [address] [address] [place] [address] Care Teams Still Operator Gin Relationship Specialty Start Date End Date Felix Powell MD [address] [facility] [address] [place] [address] [facility] - General 05/24/13
--- OUTSIDE RECORDS SUMMARY | 2024-09-22 14:35 | XMS_ITS | Encounter Summary ---
Author Organization [facility] Healthcare Address [address] [place] [address] Care Team Providers Care Motor Electrician Name Role Phone Felix Powell MD Primary Care Provider [phone] Reason for Visit * Diagnostic Imaging (Routine) - Pending Review Specialty Diagnoses / Procedures Referred By Danyell stinson Referred To Contact Procedures Breast Imaging US Outside Reference Transcribed Order, Provider Referral ID Status Reason Start Date Expiration Date V isits Requested Visits Authorized [id number] Pending Review 09/06/2024 10/06/2025 1 1 Encounter Details Date Type Department Care Team (Late st Contact Info) Description 06/11/2019 12:05 AM TALENT ASSOCIATE Hospital Encounter [facility] ([facility]) [address] [place] [id number] Social History Tobacco Use Types Packs/Day Years Used Date Smoking Tobacco: Former Smokeless Tobacco: Never Alcohol Use Standard Drinks/Week Comments No 0 (1 standard drink = 0.6 oz pur e alcohol) Comments Unknown Sex and Gender Information Value Date Recorded Sex Assigned at Not on file Legal Sex Female 2:03 AM TALENT ASSOCIATE Gender Identity Female 09/29/2020 9:57 AM CDT Sexual Orientation Straight 09/29/2020 9: 57 AM CDT documented as of this encounter Plan of Treatment Not on file documented as of this encounter Procedures Procedure Name Priority Date/Time Associated Diagnosis Comments BREAST IMAGING US OUTSIDE REFERENCE Routine 06/11/2019 12:05 AM TALENT ASSOCIATE documented in this encounter Results * Breast Imaging US Outside Reference (06/11/2019 12:05 AM TALENT ASSOCIATE) Impressions [facility]_M[facility]MO[facility] - 09/06/2024 2:42 PM CDT [...] on filedocumented in this encounter Care Teams Motor Electrician Relationship Specialty Start Date End Date Felix Powell MD [address] [place] [address] [place] [address] PCP - General 05/24/13 documented as of this encounter
--- OUTSIDE RECORDS SUMMARY | 2024-09-22 14:35 | XMS_ITS | Encounter Summary ---
Author Organization [facility] Healthcare Address [address] [place] [address] Care Team Providers Care Black Top Raker Name Role Phone Felix Powell MD Primary Care Provider [phone] Reason for Visit * Diagnostic Imaging (Routine) - Pending Review Specialty Diagnoses / Procedures Referred By Danyell stinson Referred To Contact Procedures Breast Imaging Screening Outside Reference Transcribed Order, Provider Referral ID Status Reason Start Date Expiration Date V isits Requested Visits Authorized [id number] Pending Review 09/06/2024 10/06/2025 1 1 Encounter Details Date Type Department Care Team (Late st Contact Info) Description 01/18/2019 Hospital Encounter [facility]iology [facility]) [address] [place], [place] [id number] Social History Tobacco Use Types Packs/Day Years Used Date Smoking Tobacco: Former Smokeless Tobacco: Never Alcohol Use Standard Drinks/Week Comments No 0 (1 standard drink = 0.6 oz pur e alcohol) Comments Unknown Sex and Gender Information Value Date Recorded Sex Assigned at Not on file Legal Sex Female 2:03 AM MAINTENANCE DIRECTOR Gender Identity Female 09/29/2020 9:57 AM CDT [...] and have not been reviewed by [facility] Radiology. There will be no report generated by a [facility] Radiologist. Narrative RAD_MAMMO[facility] - 09/06/2024 2:42 PM CDT EXAMINATION: Images For Reference Purposes Only us Provider Transcribed Order IMG MAMMO PROCEDURES Final Result [facility] documented in this encounter Visit Diagnoses Not on filedocumented in this encounter Care Teams Black Top Raker Relationship Specialty Start Date End Date Felix Powell MD [address] [facility] [address] [place] [address] PCP - General 05/24/13 documented as of this encounter
--- OUTSIDE RECORDS SUMMARY | 2024-09-22 14:35 | XMS_ITS | Encounter Summary ---
Author Organization [facility] Healthcare Address [address] [place] [address] Care Team Providers Care Foam Tank Laminator Name Role Phone Felix Powell MD Primary Care Provider [phone] Reason for Visit * Diagnostic Imaging (Routine) - Pending Review Specialty Diagnoses / Procedures Referred By Danyell stinson Referred To Contact Procedures Breast Imaging Diagnostic Outside Reference Transcribed Order, Provider Referral ID Status Reason Start Date Expiration Date V isits Requested Visits Authorized [id number] Pending Review 09/06/2024 10/06/2025 1 1 Encounter Details Date Type Department Care Team (Late st Contact Info) Description 06/11/2019 Hospital Encounter [facility]iology [facility]) [address] [place], [place] [phone] Social History Tobacco Use Types Packs/Day Years Used Date Smoking Tobacco: Former Smokeless Tobacco: Never Alcohol Use Standard Drinks/Week Comments No 0 (1 standard drink = 0.6 oz pur e alcohol) Comments Unknown Sex and Gender Information Value Date Recorded Sex Assigned at Not on file Legal Sex Female 2:03 AM DIRECTOR EMPLOYEE COMMUNICATIONS Gender Identity Female 09/29/2020 9:57 AM CDT Sexual Orientation Straight 09/29/2020 9: 57 AM CDT documented as of this encounter Plan of Treatment Not on file documented as of this encounter Procedures Procedure Name Priority Date/Time Associated Diagnosis Comments BREAST IMAGING MG DIAGNOSTIC OUTSIDE REFERENCE Routine 06/11/2019 12:00 AM DIRECTOR EMPLOYEE COMMUNICATIONS documented in this encounter Results * Breast Imaging Diagnostic Outside Reference (06/11/2019 12:00 AM DIRECTOR EMPLOYEE COMMUNICATIONS) Impressions RAD_MAMMO[facility] - 09/06/2024 2:42 PM CDT [...] on filedocumented in this encounter Care Teams Foam Tank Laminator Relationship Specialty Start Date End Date Felix Powell MD [address] [facility] [address] [place] [address] PCP - General 05/24/13 documented as of this encounter
[2024-09-22 15:02] LABS: Basophils Percent Auto 0.4 % (0.2-1.2); Eosinophils Absolute Auto 0.2 K/mm3 (0-0.3); Eosinophils Percent Auto 1.8 % (0-4.4); Hemoglobin 13.3 g/dL (12.0-15.0); Immature Granulocyte Absolute 0.03 K/mm3 (0.00-0.031); Immature Granulocyte Percent A 0.3 % (0-0.5); Lymphocytes Percent Auto 24.2 % (18.3-44.2); Mean Corpuscular HGB Conc 30.9 g/dl (32-36); Mean Corpuscular Hemoglobin 27.3 pg (26-34); Mean Corpuscular Volume 88.1 fl (80-100); Mean Platelet Volume 10.5 fl (7.4-10.4); Monocytes Absolute Auto 0.7 K/mm3 (0.1-0.6); Monocytes Percent Auto 7.2 % (2.6-8.5); Neutrophils Absolute Auto 6.3 K/mm3 (1.3-6.7); Neutrophils Percent Auto 66.1 % (45.5-73.1); Platelet Count Result 212 k/mm3 (150-375); Red Blood Count 4.88 M/mm3 (4.2-5.4); Red Cell Distribution Width 14.6 % (11.5-14.5); White Blood Count 9.5 K/mm3 (4.5-10.0)
[2024-09-22 16:17] LABS: Creatinine Urine 78.1 mg/dL
[2024-09-22 16:27] LABS: Hemoglobin A1C 5.3 % (<5.7)
[2024-09-22 16:33] LABS: Alanine Aminotransferase 52 U/L (6-35); Albumin Level 4.3 g/dL (3.5-5.1); Alkaline Phosphatase 92 U/L (38-126); Anion Gap 11 mmol/L (4-12); Aspartate Amino Transferase 58 U/L (14-36); Bilirubin,Total 1.6 mg/dL (0.2-1.3); Blood Urea Nitrogen 20 mg/dL (7-17); Calcium 9.7 mg/dL (8.4-10.2); Carbon Dioxide 23 mmol/L (22-30); Chloride 104 mmol/L (98-107); Cholesterol 143 mg/dL (0-200); Estimated Glomerular Filt Rate 47; Glucose 93 mg/dL (65-110); HDL Direct 72 mg/dL; Potassium 3.7 mmol/L (3.4-5.0); Sodium 138 mmol/L (137-145); Triglycerides 184 mg/dL (<150)
[2024-09-22 16:45] LABS: MALB Creatinine Ratio 333.8 mg/g (0-30); Microalbumin Urine Random 260.7 mg/L (0-16.7)
[2024-09-22 16:46] LABS: LDL Cholesterol Direct 38 mg/dL
== END 2024-09-22 14:26 | disposition home or self-care (01) ==
PROVIDERS: PCP Internal Medicine; Visit Provider Internal Medicine
DX: E11.69 Type 2 diabetes mellitus with other specified complication (principal); E78.2 Mixed hyperlipidemia; I10 Essential (primary) hypertension
CPT/HCPCS: 36415; 80053; 80061; 82043; 83036; 85025

== ENCOUNTER 2024-09-25 09:55 | Emergency (ER) | payer MEDICARE, SELFPAY ==
--- NOTE | ~2024-09-25 | CT_ITS ---
EXAMINATION: CT abdomen pelvis wo con DATE: 09/25/2024 11:00 INDICATION: Left lower quadrant abdominal pain TECHNIQUE: Computed tomography (CT) of the abdomen and pelvis was performed without intravenous contr ast. Automated exposure control and iterative reconstruction technique were employed. The dose-length product was 483.36 mGy-cm. COMPARISON: 02/23/2024 FINDINGS: Lung bases are clear. Heart size normal. Atherosclerotic coronary artery calcific location. No perica rdial or pleural effusion. Small sliding-type hiatal hernia. Unchanged dilation of the common bile du ct which measures up to 12 mm and mild intrahepatic biliary ductal dilation which are likely related to cholecystectomy with surgical clips at the gallbladder fossa. Liver is otherwise unremarkable. Spl een, pancreas, bilateral adrenal glands and kidneys are normal. Bladder is normal. The uterus is not identified and has likely been surgically resected. Moderate descending and sigmoid colon predominant diverticulosis with several of the diverticular retaining chronic oral contrast. There is prominent inflammatory stranding surrounding a diverticulum at the distal descending colon consistent with dive rticulitis. No abscess or free intraperitoneal gas or fluid. No pathologically enlarged abdominal or pelvic lymphadenopathy. Very small fat-containing umbilical hernia. Severe lumbar spondylosis. IMPRESSION: 1. Radiographically uncomplicated diverticulitis at the distal descending colon. Reviewed, dictated and finalized at location A. IMPRESSION: 1. Radiographically uncomplicated diverticulitis at the distal descending colon .
--- OUTSIDE RECORDS SUMMARY | 2024-09-25 09:57 | XMS_ITS | Encounter Summary ---
Author Organization [facility] Healthcare Address [address] [place] [address] Care Team Providers Care Butter Production Supervisor Name Role Phone Felix Powell MD Primary Care Provider [phone] Reason for Visit * Diagnostic Imaging (Routine) - Pending Review Specialty Diagnoses / Procedures Referred By Danyell stinson Referred To Contact Procedures Breast Imaging Screening Outside Reference Transcribed Order, Provider Referral ID Status Reason Start Date Expiration Date V isits Requested Visits Authorized [id number] Pending Review 09/06/2024 10/06/2025 1 1 Encounter Details Date Type Department Care Team (Late st Contact Info) Description 01/18/2019 Hospital Encounter [facility] Rad[facility]) [address] [place], [place] [phone] Social History Tobacco Use Types Packs/Day Years Used Date Smoking Tobacco: Former Smokeless Tobacco: Never Alcohol Use Standard Drinks/Week Comments No 0 (1 standard drink = 0.6 oz pur e alcohol) Comments Unknown Sex and Gender Information Value Date Recorded Sex Assigned at Not on file Legal Sex Female 2:03 AM CHILD DEVELOPMENT DIRECTOR Gender Identity Female 09/29/2020 9:57 AM [...] only and have not been reviewed by [facility] Radiology. There will be no report generated by a [facility] Radiologist. Narrative RAD_MAMMO[facility] - 09/06/2024 2:42 PM CDT EXAMINATION: Images For Reference Purposes Only us Provider Transcribed Order IMG MAMMO PROCEDURES Final Result [facility]MO[facility] documented in this encounter Visit Diagnoses Not on filedocumented in this encounter Care Teams Butter Production Supervisor Relationship Specialty Start Date End Date Felix Powell MD [address] [facility] [address] [place] [address] PCP - General 05/24/13 documented as of this encounter
--- OUTSIDE RECORDS SUMMARY | 2024-09-25 09:57 | XMS_ITS | Encounter Summary ---
Author Organization [facility] Healthcare Address [address] [place] [address] Care Team Providers Care Housekeeper Head Name Role Phone Felix Powell MD Primary Care Provider Encounter Details Date Type Department Care Team (Latest Contact Info) Description 09/23/2024 Results Follow-Up [facility] Medical Group Cardiology at [address] [place] [address] Paulo Veloz MD [address] [place] [id number] Transthoracic Echo (TTE) Complete W Doppler/CF Social History Tobacco Use Types Packs/Day Years Used Date Smoking Tobacco: Former Smokeless Tobacco: Never Alcohol Use Standard Drinks/Week Comments No 0 (1 standard drink = 0.6 oz pur e alcohol) Comments Unknown Sex and Gender Information Value Date Recorded Sex Assigned at Not on file Legal Sex Female 2:03 AM INVENTORY ANALYST Gender Identity Female 09/29/2020 9:57 AM CDT Sexual Orientation Straight 09/29/2020 9: 57 AM CDT documented as of this encounter Plan of Treatment Not on file documented as of this encounter Visit Diagnoses Not on filedocumented in this encounter Care Teams Housekeeper Head Relationship Specialty Start Date End Date Felix Powell MD [address] [email or web address] [address] [place] [address] PCP - General 05/24/13 documented as of this encounter
--- OUTSIDE RECORDS SUMMARY | 2024-09-25 09:57 | XMS_ITS | Clinical Summary ---
Author Organization [facility] [place] [address] Address [address] [place] [address] Care Team Providers Care Radio Engineering Teacher Name Role Phone Felix Powell MD Primary Care Provider [phone] Allergies Active Allergy Reactions Criticality Noted Date [...] 1 tablet (137 mcg total) by mouth freight caller before breakfast Active buPROPion XL (WELLBUTRIN XL) [...] mg SL tabletIndications :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 Place 1 tablet [...] smoker 02/23/2021 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lving tonkawa coronary artery of tonk[place] heart without angina pectoris 06/19/2017 History of coronary artery stent placement 06/19 Encounters Date Type Department Care Team Description 09/23/2024 3:00 PM CDT Ancillary Procedure 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 Cardiology at [address] [place] [address] Checo Allen MD Transthoracic Echo (TTE) Complete W Doppler/CF 09/13/2024 8:52 AM CDT - 09/13/2024 11:59 PM CDT Hospital Encounter [facility] - Breast Imaging [address] [place] [address] Floor 8 [place] [address] Abnormal mammogram Discharge Disposition: Discharge to home or self care 09/13/2024 8:51 AM CDT - 09/13/2024 11:59 PM CDT Hospital Encounter [facility] - Breast Imaging [address] [place] [address] 8 [place] [address] Abnormal mammogram Discharge Disposition: Discharge to home or self care 09/06/2024 5:21 PM CDT - 09/06/2024 11:59 PM CDT Hospital Encounter [facility] [address] [place] [address] Discharge Disposition: Discharge to home or self care 09/06/[address] [facility] Cardiology [address] [facility] [address] [place] [address] Cheryle Bowling MD 09/03/2024 11:30 AM CDT Office Visit 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 (Primary Dx); Essential hypertension; Hyperlipidemia LDL goal <70; LBBB (left bundle branch block); Former smoker; Pulmonary hypertension (HCC) 08/25/2024 12:05 AM CDT - 08/25/2024 11:59 PM CDT Hospital Encounter [facility]) [address] [place] [address] Discharge Disposition: Discharge to home or self care 08/25/2024 - 08/25/2024 11:59 PM CDT Hospital Encounter [facility]) [address] [place] [address] Discharge Disposition: Discharge to home or self [...] on file 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 Gender Identity Female 09/29/2020 9:57 AM CDT [...] Procedure Name Priority Date/Time Associated Diagnosis Comments TRANSTHORACIC ECHO (TTE) COMPLETE W DOPPLER/CF Routine 09/23/2024 1:52 PM CDT 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 Essential hypertension LBBB (left bundle branch block) Pulmonary hypertension (HCC) US BREAST LEFT LIMITED Schedule Routine, Read Routine (OP Routine) 09/13/2024 11:18 AM CDT Abnormal mammogram DIAGNOSTIC MAMMOGRAM RIGHT W MITUL Schedule Routine, Read Routine (OP Routine) 09/13/2024 11:18 AM CDT Abnormal mammogram BREAST IMAGING MG DIAGNOSTIC OUTSIDE CONSULT Routine 09/06/2024 5:22 PM CDT BREAST IMAGING US OUTSIDE REFERENCE Routine 08/25/2024 12:05 AM CDT BREAST IMAGING MG DIAGNOSTIC OUTSIDE REFERENCE Routine 08/25/2024 12:00 AM CDT from Last 3 Months Results * Transthoracic Echo (TTE) Complete W Doppler/CF (09/23/2024 1:52 PM CDT) Estimated EF 55-60 % CONS SCIMAGE EF Mod BP 52 % CONS SCIMAGE Anatomical Region Laterality Modality Ultrasound 09/23/2024 1:52 PM CDT Narrative 09/23/2024 4:[address] [facility] Cardiology [facility], [address], [place] [address] P:[phone] P:[phone] Echocardiographic Report Patient Name: ALLYSON STAHL C : 1945 Study Date: 09/23/2024 1:52:45 PM Gender: F Tech: Location: EDW Ref Provider: CHECO ALLEN Height(Cm): 170 BSA: 1.91 Weight(Kg): 77.6 Heart Rate: 79 BP: 108 / 60 Quality: Good Order Provider: CHECO ALLEN PROCEDURES: Echocardiographic Report: Transthoracic echocardiogram with complete 2D, M-Mode, and color Doppler examination. With Strain Analysis. INDICATIONS: CAD, HTN, LBBB, PHTN. MEASUREMENTS: 2D/MM Value Range Doppler Value Range EF Mod BP 52 % [ 54 - 74 ] ADRY Vmax 2.32 cm2 [ 2.00 - 4.00 ] EF Teich MM 58 % [ 54 - 74 ] AV Mean PG 7 mmHg Estimated EF 55-60 % AV Peak Timur 1.73 m/s [ 1.00 - 1.70 ] LVIDd 2D 3.99 cm [ 3.80 - 5.20 ] AV Peak PG 12 mmHg LVIDd MM 5.39 cm [ 3.80 - 5.20 ] AV VTI 31.47 cm LVIDs 2D 2.87 cm [ 2.20 - 3.50 ] LVOT Diam 1.97 cm [ 1.70 - 2.10 ] LVIDs MM 3.74 cm [ 2.20 - 3.50 ] LVOT Peak Timur 1.12 m/s [ 0.70 - 1.10 ] LVPWd 2D 1.13 cm [ 0.60 - 0.90 ] LVOT VTI 22.95 cm LVPWd MM 1.10 cm [ 0.60 - 0.90 ] MV E Peak Timur 0.71 m/s [ 0.60 - 1.30 ] IVSd 2D 1.17 cm [ 0.60 - 0.90 ] MV A Peak Timur 1.04 m/s [ 1.00 - 1.20 ] IVSd MM 0.80 cm [ 0.60 - 0.90 ] MV Decel Time 319 msec [ 104 - 258 ] LA Dimension MM 3.09 cm [ 2.70 - 3.80 ] PV Peak Timur 1.04 m/s [ 0.40 - 0.80 ] AoR Diam MM 3.19 cm [ 2.70 - 3.70 ] TR Peak Timur 2.50 m/s [ 1.00 - 2.80 ] LA Volume Index 25 cc/m2 [ 16 - 34 ] TR Peak PG 25 mmHg RVSP 33.00 mmHg [ 10.00 - 36.00 ] Lateral E` 0.09 m/s [ 0.10 - 0.15 ] E/E` 8 2D/MM Value Range Doppler Value Range - FINDINGS: Interpretation Site: Exam was interpreted at [facility]. Left Ventricle: Normal left ventricular systolic function. No focal wall motion abnormalities. Normal left ventricular size. Mild concentric left ventricular hypertrophy. Paradoxical septal motion consistent with IVCD or bundle branch block. Impaired diastolic relaxation Grade I. Ejection fraction is measured at 52 %. Ejection Fraction is visually estimated to be 55-60 %. Global Longitudinal Strain is -14 %. GLS is abnormal. Right Ventricle: Normal right ventricular size. Normal right ventricular systolic function. Left Atrium: The left atrium is normal in size. Right Atrium: The right atrium is normal in size. Atrial Septum: Normal atrial septum. Mitral Valve: Mitral valve leaflets appear mildly thickened. Mild mitral annular calcification. Mild mitral valve regurgitation. There is no hemodynamically significant mitral stenosis by Doppler. Aortic Valve: No evidence of hemodynamically significant aortic stenosis by Doppler. Aortic cusps appear mildly calcified. Trileaflet aortic valve. Mild aortic valve regurgitation. Tricuspid Valve: Normal appearance of the tricuspid valve. Normal right ventricular systolic pressure. Estimated peak RVSP is 33 mmHg. Mild tricuspid regurgitation. Pulmonic Valve: Normal appearance of the pulmonic valve. No pulmonic stenosis. Mild pulmonic regurgitation. Pericardium: Normal pericardium with no significant pericardial effusion. There is an anterior echo free space consistent with epicardial fat pad. Aorta: Normal aortic root. IVC: Normal size and normal respiratory collapse consistent with normal right atrial pressure (<5 mmHg). CONCLUSIONS: Normal left ventricular systolic function. No focal wall motion abnormalities. Normal left ventricular size. Mild concentric left ventricular hypertrophy. Paradoxical septal motion consistent with IVCD or bundle branch block. Impaired diastolic relaxation Grade I. Ejection fraction is measured at 52 %. Ejection Fraction is visually estimated to be 55-60 %. Global Longitudinal Strain is -14 %. GLS is abnormal. Mitral valve leaflets appear mildly thickened. Mild mitral annular calcification. Mild mitral valve regurgitation. Aortic cusps appear mildly calcified. Mild aortic valve regurgitation. Mild tricuspid regurgitation. Mild pulmonic regurgitation. Normal sinus rhythm. Electronically Signed By: Checo Allen MD 09/23/2024 4:43:32 PM CDT Procedure Note Checo Allen MD - 09/23/2024 [facility] Cardiology [address] [facility], [address], [place] [address] P:[phone] P:[phone] Echocardiographic Report Patient Name: ALLYSON STAHL C : 1945 Study Date: 09/23/2024 1:52:45 PM Gender: F Tech: Location: EDW Ref Provider: CHECO ALLEN Height(Cm): 170 BSA: 1.91 Weight(Kg): 77.6 Heart Rate: 79 BP: 108 / 60 Quality: Good Order Provider: CHECO ALLEN PROCEDURES: Echocardiographic Report: Transthoracic echocardiogram with complete 2D, M-Mode, and color Dopplerexamination. With Strain Analysis. INDICATIONS: CAD, HTN, LBBB, PHTN. MEASUREMENTS: 2D/MM Value Range Doppler ValueRange EF Mod BP 52 % [ 54 - 74 ] ADRY Vmax 2.32cm2 [ 2.00 - 4.00 ] EF Teich MM 58 % [ 54 - 74 ] AV Mean PG 7mmHg Estimated EF 55-60 % AV Peak Timur 1.73m/s [ 1.00 - 1.70 ] LVIDd 2D 3.99 cm [ 3.80 - 5.20 ] AV Peak PG 12mmHg LVIDd MM 5.39 cm [ 3.80 - 5.20 ] AV VTI 31.47cm LVIDs 2D 2.87 cm [ 2.20 - 3.50 ] LVOT Diam 1.97 cm[ 1.70 - 2.10 ] LVIDs MM 3.74 cm [ 2.20 - 3.50 ] LVOT Peak Timur 1.12m/s [ 0.70 - 1.10 ] LVPWd 2D 1.13 cm [ 0.60 - 0.90 ] LVOT VTI 22.95cm LVPWd MM 1.10 cm [ 0.60 - 0.90 ] MV E Peak Timur 0.71m/s [ 0.60 - 1.30 ] IVSd 2D 1.17 cm [ 0.60 - 0.90 ] MV A Peak Timur 1.04m/s [ 1.00 - 1.20 ] IVSd MM 0.80 cm [ 0.60 - 0.90 ] MV Decel Time 319msec [ 104 - 258 ] LA Dimension MM 3.09 cm [ 2.70 - 3.80 ] PV Peak Timur 1.04m/s [ 0.40 - 0.80 ] AoR Diam MM 3.19 cm [ 2.70 - 3.70 ] TR Peak Timur 2.50m/s [ 1.00 - 2.80 ] LA Volume Index 25 cc/m2 [ 16 - 34 ] TR Peak PG 25mmHg RVSP 33.00 mmHg [ 10.00 - 36.00 ] Lateral E` 0.09 m/s [ 0.10 - 0.15 ] E/E` 8 2D/MM Value Range Doppler ValueRange - FINDINGS: Interpretation Site: Exam was interpreted at [facility]. Left Ventricle: Normal left ventricular systolic function. No focal wall motionabnormalities. Normal left ventricular size. Mild concentric left ventricular hypertrophy.Paradoxical septal motion consistent with IVCD or bundle branch block. Impaired diastolicrelaxation Grade I. Ejection fraction is measured at 52 %. Ejection Fraction is visuallyestimated to be 55-60 %. Global Longitudinal Strain is -14 %. GLS is abnormal. Right Ventricle: Normal right ventricular size. Normal right ventricular systolicfunction. Left Atrium: The left atrium is normal in size. Right Atrium: The right atrium is normal in size. Atrial Septum: Normal atrial septum. Mitral Valve: Mitral valve leaflets appear mildly thickened. Mild mitral annularcalcification. Mild mitral valve regurgitation. There is no hemodynamically significant mitralstenosis by Doppler. Aortic Valve: No evidence of hemodynamically significant aortic stenosis by Doppler.Aortic cusps appear mildly calcified. Trileaflet aortic valve. Mild aortic valveregurgitation. Tricuspid Valve: Normal appearance of the tricuspid valve. Normal right ventricularsystolic pressure. Estimated peak RVSP is 33 mmHg. Mild tricuspid regurgitation. Pulmonic Valve: Normal appearance of the pulmonic valve. No pulmonic stenosis. Mildpulmonic regurgitation. Pericardium: Normal pericardium with no significant pericardial effusion. There is ananterior echo free space consistent with epicardial fat pad. Aorta: Normal aortic root. IVC: Normal size and normal respiratory collapse consistent with normal rightatrial pressure (<5 mmHg). CONCLUSIONS: Normal left ventricular systolic function. No focal wall motionabnormalities. Normal left ventricular size. Mild concentric left ventricular hypertrophy.Paradoxical septal motion consistent with IVCD or bundle branch block. Impaired diastolicrelaxation Grade I. Ejection fraction is measured at 52 %. Ejection Fraction is visuallyestimated to be 55-60 %. Global Longitudinal Strain is -14 %. GLS is abnormal. Mitral valve leaflets appear mildly thickened. Mild mitral annularcalcification. Mild mitral valve regurgitation. Aortic cusps appear mildly calcified. Mild aortic valve regurgitation. Mild tricuspid regurgitation. Mild pulmonic regurgitation. Normal sinus rhythm. Electronically Signed By: Checo Allen MD 09/23/2024 4:43:32 PM CDT us Checo Allen MD CV ECHO PROCEDURES Final Result * US Breast Left Limited (09/13/2024 11:18 [...] PM CDT EXAMINATION: DIAGNOSTIC MAMMOGRAM RIGHT W MITUL, US BREAST LEFT LIMITED HISTORY: 78-year-old female [...] the LEFT breast was performed by the applique sewer. BREAST PARENCHYMAL COMPOSITION: The breasts are heterogenously [...] - 09/13/2024 EXAMINATION: DIAGNOSTIC MAMMOGRAM RIGHT W MITUL, US BREAST LEFT LIMITED HISTORY: 78-year-old female [...] previously obtained. COMPARISON: Priors dating back to 2018 TECHNIQUE: Full field digital mammographic views of the RIGHT breast were performed, including computer aided detection (CAD) digital breast tomosynthesis (DBT). Directed ultrasound evaluation of the LEFT breast was performed by the applique sewer. BREAST PARENCHYMAL COMPOSITION: The breasts are heterogenously [...] R esult * Diagnostic Mammogram Right W Mitul (09/13/2024 11:18 AM CDT) Anatomical Region Laterality [...] PM CDT EXAMINATION: DIAGNOSTIC MAMMOGRAM RIGHT W MITUL, US BREAST LEFT LIMITED HISTORY: 78-year-old female [...] the LEFT breast was performed by the applique sewer. BREAST PARENCHYMAL COMPOSITION: The breasts are heterogenously [...] - 09/13/2024 EXAMINATION: DIAGNOSTIC MAMMOGRAM RIGHT W MITUL, US BREAST LEFT LIMITED HISTORY: 78-year-old female [...] the LEFT breast was performed by the applique sewer. BREAST PARENCHYMAL COMPOSITION: The breasts are heterogenously [...] mammogram. Electronically signed by: Michelle Raya M.D. Ladonna Louise MD IMG MAMMO PROCEDURES Final [...] images may or may not represent the [place] source data set and thus may contain [...] OF OUTSIDE IMAGING FACILITY PERFORMING OUTSIDE IMAGING: [place], [place] EXAM(S) REVIEWED: 1. BILATERAL DIAGNOSTIC MAMMOGRAM [...] OF OUTSIDE IMAGING FACILITY PERFORMING OUTSIDE IMAGING: [place], [place] EXAM(S) REVIEWED: 1. BILATERAL DIAGNOSTIC MAMMOGRAM [...] images may or may not represent the [place] source data set and thus may contain [...] only and have not been reviewed by [facility]iology. There will be no report generated by a [facility] Radiologist. Narrative [email or web address] - 09/06/2024 2:49 PM CDT EXAMINATION: Images For Reference Purposes Only us Provider Transcribed Order IMG MAMMO PROCEDURES Final Result Performing Organization Address [facility] Co de Phone Number [email or web address] * Breast Imaging Diagnostic Outside Reference (08/25/2024 12:00 AM CDT) Impressions [email or web address] - 09/06/2024 2:42 PM CDT These images are for Reference purposes only and have not been reviewed by [facility]iology. There will be no report generated by a [facility] Radiologist. Narrative [email or web address] - 09/06/2024 2:42 PM CDT EXAMINATION: Images For Reference Purposes Only us Provider Transcribed Order IMG MAMMO PROCEDURES Final Result [facility] from Last 3 Months Insurance UHC MEDICARE ADVANTAGE UHC MEDICARE ADVANTAGE Care Teams Radio Engineering Teacher Relationship Specialty Start Date End Date Felix Powell MD [address] [facility] [address] [facility] [address] MED[address] [place] [id number] PCP - General 05/24/13
--- OUTSIDE RECORDS SUMMARY | 2024-09-25 09:57 | XMS_ITS | Referral Summary ---
Author Organization [facility] [place] [address] Address [address] [place] [address] Care Team Providers Care Glue Clamp Operator Name Role Phone Felix Powell MD Primary Care Provider [phone] Encounters Date Type Department Care Team Description 09/23/2024 Results Follow-Up [facility] Cardiology at [address] [place] [phone] Checo Allen MD Transthoracic Echo (TTE) Complete W Doppler/CF 09/23/2024 3:00 PM CDT Ancillary Procedure [facility] Cardiology at [address] [place] [phone] Coronary artery disease involving lovelock coronary artery of lovelock heart without angina pectoris; Essential hypertension; LBBB (left bundle branch block); Pulmonary hypertension (HCC) 09/13/2024 8:51 AM CDT - 09/13/2024 11:59 PM CDT Hospital Encounter [facility] - Breast Imaging [address] [facility] Floor 8 [place] [address] Abnormal mammogram Discharge Disposition: Discharge to home or self care 09/13/2024 8:52 AM CDT - 09/13/2024 11:59 PM CDT Hospital Encounter [facility] - Breast Imaging [address] [facility] Floor 8 [place] [address] Abnormal mammogram Discharge Disposition: Discharge to home or self care 09/06/2024 5:21 PM CDT - 09/06/2024 11:59 PM CDT Hospital Encounter [facility] [address] [place] [address] Discharge Disposition: Discharge to home or self care 09/06/2024 Orders Only [facility] Cardiology [address] [place] [phone] ProviderCheryle MD 09/03/2024 11:30 AM CDT Office Visit [facility] Cardiology at [address] [place] [phone] Checo Allen MD Coronary artery disease involving lovelock coronary artery of lovelock heart without angina pectoris (Primary Dx); Essential hypertension; Hyperlipidemia LDL goal <70; LBBB (left bundle branch block); Former smoker; Pulmonary hypertension (HCC) 08/25/2024 12:05 AM CDT - 08/25/2024 11:59 PM CDT Hospital Encounter [facility]) [address] [place] [address] Discharge Disposition: Discharge to home or self care 08/25/2024 - 08/25/2024 11:59 PM CDT Hospital Encounter [facility] ([facility]) [address] [place] [address] Discharge Disposition: Discharge to home or self [...] 1 tablet (137 mcg total) by mouth paid search manager before breakfast Active buPROPion XL (WELLBUTRIN [...] mg SL tabletIndications :Coronary artery disease involving lovelock coronary artery of lovelock heart without angina pectoris Place 1 tablet [...] smoker 02/23/2021 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lving lovelock coronary artery of [place]ock heart without angina pectoris 06/19/2017 History of [...] on file 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 Left Ventricle: Normal left ventricular systolic function. [...] Procedure Note Checo Allen MD - 09/23/2024 [facility] Cardiology [address] [facility], [address], [place] [address] P:[phone] P:[phone] Echocardiographic Report Patient Name: ALLYSON STAHL C : 1945 Study Date: 09/23/2024 1:52:45 PM Gender: F Tech: Location: EDW Ref Provider: CHECO ALLEN Height(Cm): 170 BSA: 1.91 Weight(Kg): 77.6 Heart Rate: 79 BP: 108 / 60 Quality: Good Order Provider: CHECO ALLNE PROCEDURES: Echocardiographic Report: Transthoracic echocardiogram with complete [...] FINDINGS: Interpretation Site: Exam was interpreted at [facility]. Left Ventricle: Normal left ventricular systolic function. [...] the LEFT breast was performed by the solution advisor. BREAST PARENCHYMAL COMPOSITION: The breasts are heterogenously [...] the LEFT breast was performed by the solution advisor. BREAST PARENCHYMAL COMPOSITION: The breasts are heterogenously [...] the LEFT breast was performed by the solution advisor. BREAST PARENCHYMAL COMPOSITION: The breasts are heterogenously [...] the LEFT breast was performed by the solution advisor. BREAST PARENCHYMAL COMPOSITION: The breasts are heterogenously [...] images may or may not represent the [place]velock source data set and thus may contain [...] OF OUTSIDE IMAGING FACILITY PERFORMING OUTSIDE IMAGING: [place], [place] EXAM(S) REVIEWED: 1. BILATERAL DIAGNOSTIC MAMMOGRAM [...] OF OUTSIDE IMAGING FACILITY PERFORMING OUTSIDE IMAGING: [place], [place] EXAM(S) REVIEWED: 1. BILATERAL DIAGNOSTIC MAMMOGRAM [...] images may or may not represent the [place] source data set and thus may contain [...] only and have not been reviewed by [facility] Radiology. There will be no report generated by a [facility] Radiologist. Narrative [email or web address] - 09/06/2024 2:49 PM CDT EXAMINATION: Images For Reference Purposes Only us Provider Transcribed Order IMG MAMMO PROCEDURES Final Result Performing Organization Address City/[facility]/ZIP Co de Phone Number [email or web address] * Breast Imaging Diagnostic Outside Reference (08/25/2024 12:00 AM CDT) Impressions [email or web address] - 09/06/2024 2:42 PM CDT These images are for Reference purposes only and have not been reviewed by [facility] Radiology. There will be no report generated by a [facility] Radiologist. Narrative [facility] - 09/06/2024 2:42 PM CDT EXAMINATION: Images For Reference Purposes Only us Provider Transcribed Order IMG MAMMO PROCEDURES Final Result Performing Organization Address [facility] Co de Phone Number RAD_M[facility] from Last 3 Months Insurance [facility] MEDICARE ADVANTAGE [facility] MEDICARE Address: [facility] [address] [place] [address] [facility] MEDICARE ADVANTAGE [facility] MEDICARE Address: [facility] [address] [place] [address] Care Teams Glue Clamp Operator Relationship Specialty Start Date End Date Felix Powell MD [address] [facility] [address] [place] [address] PCP - General 05/24/13
--- OUTSIDE RECORDS SUMMARY | 2024-09-25 09:57 | XMS_ITS | Encounter Summary ---
Author Organization [facility] Healthcare Address [address] [place] [address] Care Team Providers Care Spring Former Hand Name Role Phone Felix Powell MD Primary Care Provider [phone] Reason for Visit * Diagnostic Imaging (Routine) - Pending Review Specialty Diagnoses / Procedures Referred By Danyell stinson Referred To Contact Procedures Breast Imaging Diagnostic Outside Reference Transcribed Order, Provider Referral ID Status Reason Start Date Expiration Date V isits Requested Visits Authorized [id number] Pending Review 09/06/2024 10/06/2025 1 1 Encounter Details Date Type Department Care Team (Late st Contact Info) Description 01/27/2019 Hospital Encounter [facility]) [address] [place], [place] [id number] Social History Tobacco Use Types Packs/Day Years Used Date Smoking Tobacco: Former Smokeless Tobacco: Never Alcohol Use Standard Drinks/Week Comments No 0 (1 standard drink = 0.6 oz pur e alcohol) Comments Unknown Sex and Gender Information Value Date Recorded Sex Assigned at Not on file 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 Radiology. There will be no report generated by a [facility] Radiologist. Narrative [facility]_M[facility]MO[facility] - 09/06/2024 2:42 PM CDT EXAMINATION: Images For Reference Purposes Only us Provider Transcribed Order IMG MAMMO PROCEDURES Final Result [facility]MO[facility] documented in this encounter Visit Diagnoses Not on filedocumented in this encounter Care Teams Spring Former Hand Relationship Specialty Start Date End Date Felix Powell MD [address] [facility] [address] [place] [address] PCP - General 05/24/13 documented as of this encounter
--- OUTSIDE RECORDS SUMMARY | 2024-09-25 09:57 | XMS_ITS | Encounter Summary ---
Author Organization [facility] Healthcare Address [address] [place] [address] Care Team Providers Care Salesperson Yard Goods Name Role Phone Felix Powell MD Primary Care Provider [phone] Reason for Visit * Diagnostic Imaging (Routine) - Pending Review Specialty Diagnoses / Procedures Referred By Danyell stinson Referred To Contact Procedures Breast Imaging US Outside Reference Transcribed Order, Provider Referral ID Status Reason Start Date Expiration Date V isits Requested Visits Authorized [id number] Pending Review 09/06/2024 10/06/2025 1 1 Encounter Details Date Type Department Care Team (Late st Contact Info) Description 06/11/2019 12:05 AM AUDIO VISUAL ARTS DIRECTOR Hospital Encounter 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 VISUAL ARTS DIRECTOR Gender Identity Female 09/29/2020 9:57 AM CDT Sexual Orientation Straight 09/29/2020 9: 57 AM CDT documented as of this encounter Plan of Treatment Not on file documented as of this encounter Procedures Procedure Name Priority Date/Time Associated Diagnosis Comments BREAST IMAGING US OUTSIDE REFERENCE Routine 06/11/2019 12:05 AM AUDIO VISUAL ARTS DIRECTOR documented in this encounter Results * Breast Imaging US Outside Reference (06/11/2019 12:05 AM AUDIO VISUAL ARTS DIRECTOR) Impressions [facility]MO[facility] - 09/06/2024 2:42 PM CDT These images are for Reference purposes only and have not been reviewed by [facility] Radiology. There will be no report generated by a [facility] Radiologist. Narrative RAD_MAMMO[facility] - 09/06/2024 2:42 PM CDT EXAMINATION: Images For Reference Purposes Only us Provider Transcribed Order IMG MAMMO PROCEDURES Final Result [facility] documented in this encounter Visit Diagnoses Not on filedocumented in this encounter Care Teams Salesperson Yard Goods Relationship Specialty Start Date End Date Felix oPwell MD [address] [place] [address] [place] [address] PCP - General 05/24/13 documented as of this encounter
--- OUTSIDE RECORDS SUMMARY | 2024-09-25 09:57 | XMS_ITS | Encounter Summary ---
Author Organization [facility] Healthcare Address [address] [place] [address] Care Team Providers Care Cuffer Name Role Phone Felix Powell MD Primary Care Provider [phone] Reason for Visit * Diagnostic Imaging (Routine) - Pending Review Specialty Diagnoses / Procedures Referred By Danyell stinson Referred To Contact Procedures Breast Imaging Diagnostic Outside Reference Transcribed Order, Provider Referral ID Status Reason Start Date Expiration Date V isits Requested Visits Authorized [id number] Pending Review 09/06/2024 10/06/2025 1 1 Encounter Details Date Type Department Care Team (Late st Contact Info) Description 02/29/2020 Hospital Encounter [facility]iology [facility]) [address] [place], [place] [id number] Social History Tobacco Use Types Packs/Day Years Used Date Smoking Tobacco: Former Smokeless Tobacco: Never Alcohol Use Standard Drinks/Week Comments No 0 (1 standard drink = 0.6 oz pur e alcohol) Comments Unknown Sex and Gender Information Value Date Recorded Sex Assigned at Not on file Legal Sex 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
--- OUTSIDE RECORDS SUMMARY | 2024-09-25 09:57 | XMS_ITS | Encounter Summary ---
Author Organization [facility] Healthcare Address [address] [place] [address] Care Team Providers Care Healthcare Specialist Name Role Phone Felix Powell MD Primary Care Provider [phone] Reason for Visit * Diagnostic Imaging (Routine) - Pending Review Specialty Diagnoses / Procedures Referred By Danyell stinson Referred To Contact Procedures Breast Imaging US Outside Reference Transcribed Order, Provider Referral ID Status Reason Start Date Expiration Date V isits Requested Visits Authorized [id number] Pending Review 09/06/2024 10/06/2025 1 1 Encounter Details Date Type Department Care Team (Late st Contact Info) Description 03/01/2020 Hospital Encounter [facility] Radiology [facility]) [address] [place], [place] [id number] Social History Tobacco Use Types Packs/Day Years Used Date Smoking Tobacco: Former Smokeless Tobacco: Never Alcohol Use Standard Drinks/Week Comments No 0 (1 standard drink = 0.6 oz pur e alcohol) Comments Unknown Sex and Gender Information Value Date Recorded Sex Assigned at Not on file Legal Sex 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 There will be no report generated by a [facility] Radiologist. Narrative RAD_MAMMO[facility] - 09/06/2024 2:42 PM CDT EXAMINATION: Images For Reference Purposes Only us Provider Transcribed Order IMG MAMMO PROCEDURES Final Result [facility] documented in this encounter Visit Diagnoses Not on filedocumented in this encounter Care Teams Healthcare Specialist Relationship Specialty Start Date End Date Felix Powell MD [address] [facility] [address] [place] [address] PCP - General 05/24/13 documented as of this encounter
--- OUTSIDE RECORDS SUMMARY | 2024-09-25 09:57 | XMS_ITS | Continuity of Care Document ---
Author Organization [facility] Address [address] [place] [address] Phone Care Team Providers Care Director Of Manufacturing Operations Name Role Phone Bola TIDWELL, ELLENT, Jimi Unavailable Unavailable Procedures Procedure Date Therapeutic [...] Diagnoses Date Provider Providers Copied on Encounter [facility] [address], [place], [place], [id number], tel:[phone] [place] No Information 4 Bola Krause. . [facility] [facility] [address], [place], [place], [id number], [place] tel:[phone] [place] No Information 4 Klahn Jimi. . Referring Provider: Christen Orta [facility] [address], [place], [address]. tel:[phone] [facility], [address], [place], [place], [address], [place] tel:[phone] [place] No Information 4 Klahn Jimi. . Referring Provider: Christen Orta [facility] [address], [place], [address]. tel:[phone] [facility] [address], [place], [place], [id number], [place] tel:[phone] [place] No Information 4 Klahn Jimi. . Referring Provider: Tasneem Orta [facility] [address], [place], [address]. tel:[phone] [facility] [address], [place], [place], [id number], [place] tel:[phone] [place] No Information 4 Klahn Jimi. . Referring Provider: Tasneem Orta [facility] [address], [place], [address]. tel:[phone] [facility] [address], [place], [place], [id number], [place] tel:[phone] [place] No Information 3 Klahn Jimi. . Referring Provider: Tasneem Orta [facility] [address], [place], [address]. tel:[phone] [facility], [place], [place], [id number], [place] tel:[phone] [place] No Information 3 Modglin Alex. . Referring Provider: Christen [address], [place], [address]. tel:[phone], [place], [place], [id number], tel:[phone] [place] No Information Dec-0 - 3 Klahn Jimi. . Referring Provider: Felix Powell [address] [place] [address] [address], [place], [address]. tel:[phone] [address], [place], [place], [id number], [place] tel:[phone] [place] No Information Dec-0 3 Klahn Jimi. . Referring Provider: Felix Powell [address] [place] [address] [address], [place], [address]. tel:[phone], [place], [place], [id number], [place] tel:[phone] [place] No Information Sep-1 3 Klahn Jimi. . Referring Provider: Felix Powell [address] [place] [address] [address], [place], [address]. tel:[phone], [place], [place], [id number], tel:[phone] [place] No Information Sep-0 3 Klahn Jimi. . Referring Provider: Felix Powell [address] [place] [address] [address], [place], [address]. tel:[phone], [place], [place], [id number], [place] tel:[phone] [place] No Information Dec-2 3 Klahn Jimi. . Referring Provider: Christen Orta[address] [place] [address] [address], [place], [address]. tel:[phone] Family History Family Member Type Diagnosis Age At Onset No Information Payers Payer name Insurance type Covered green party ID Roland rust(s) [employer] Medicare Replacement CI [id number] Social History Type Description Quantity Date Captured [...]
--- OUTSIDE RECORDS SUMMARY | 2024-09-25 09:57 | XMS_ITS | Encounter Summary ---
Author Organization [facility] Healthcare Address [address] [place] [address] Care Team Providers Care Metrology Technician Name Role Phone Felix Powell MD Primary Care Provider [phone] Reason for Visit * Diagnostic Imaging (Routine) - Pending Review Specialty Diagnoses / Procedures Referred By Danyell stinson Referred To Contact Procedures Breast Imaging Diagnostic Outside Reference Transcribed Order, Provider Referral ID Status Reason Start Date Expiration Date V isits Requested Visits Authorized [id number] Pending Review 09/06/2024 10/06/2025 1 1 Encounter Details Date Type Department Care Team (Late st Contact Info) Description 06/11/2019 Hospital Encounter [facility]iology [facility]) [address] [place], [place] [phone] Social History Tobacco Use Types Packs/Day Years Used Date Smoking Tobacco: Former Smokeless Tobacco: Never Alcohol Use Standard Drinks/Week Comments No 0 (1 standard drink = 0.6 oz pur e alcohol) Comments Unknown Sex and Gender Information Value Date Recorded Sex Assigned at Not on file Legal Sex Female 2:03 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 Gender Identity Female 09/29/2020 9:57 AM CDT Sexual Orientation Straight 09/29/2020 9: 57 AM CDT documented as of this encounter Plan of Treatment Not on file documented as of this encounter Procedures Procedure Name Priority Date/Time Associated Diagnosis Comments BREAST IMAGING MG DIAGNOSTIC OUTSIDE REFERENCE Routine 06/11/2019 12:00 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 HEALTH 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 documented in this encounter Results * Breast Imaging Diagnostic Outside Reference (06/11/2019 12:00 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 HEALTH 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) Impressions RAD_MAMMO[facility] - 09/06/2024 2:42 PM CDT These images are for Reference purposes only and have not been reviewed by [facility] Radiology. There will be no report generated by a [facility] Radiologist. Narrative RAD_MAMMO[facility] - 09/06/2024 2:42 PM CDT EXAMINATION: Images For Reference Purposes Only us Provider Transcribed Order IMG MAMMO PROCEDURES Final Result [facility] documented in this encounter Visit Diagnoses Not on filedocumented in this encounter Care Teams Metrology Technician Relationship Specialty Start Date End Date Felix Powell MD [address] [facility] [address] [place] [address] PCP - General 05/24/13 documented as of this encounter
--- NOTE | 2024-09-25 10:36 | ED.ABDPAIN ---
HPI - Abdominal Pain General Chief Complaint: Abdominal Pain Stated Complaint: abd pain Time Seen by Provider: 09/25/24 10:35 Source: patient Mode of arrival: ambulatory Limitations: no limitations History of Present Illness HPI narrative: 78 years old white female came from home by private car complaining of lower abdominal pain mainly left lower quadrant started 2 days ago, getting worse. Patient denies any fever, chills, nausea, vomiting, constipation. Last bowel movement 2 days ago. History of constipation. Patient did not take her morning medicine or eating her breakfast today. History of diverticulitis, cholecystectomy, hysterectomy, thyroidectomy, diabetes, hypertension, hyper lipid. Patient does not smoke or drink or use drugs. Patient is allergic to contrast Patient is telling me that allergy to morphine is debatable she had many times before in the past Related Data Home Medications ?Medication ?Instructions ?Recorded ?Confirmed ?Last Taken ?Type aspirin 81 mg tablet,delayed 81 mg PO DAILY 03/09/19 09/22/24 04/14/24 History release (Adult Low Dose Aspirin) cyanocobalamin (vitamin B-12) 1,000 mcg PO QPM 10/25/20 09/22/24 04/14/24 History 1,000 mcg tablet (Vitamin B-12) ascorbic acid (vitamin C) 1,000 mg 1 g PO QPM 10/03/21 09/22/24 04/14/24 History tablet cholecalciferol (vitamin D3) 25 2,000 unit PO DAILY 01/26/22 09/22/24 04/14/24 History mcg (1,000 unit) tablet omega-3 fatty acids 1,000 mg 1,000 mg PO QPM 01/26/22 09/22/24 04/14/24 History capsule turmeric 1,000 mg BYMOUTH DAILY 01/26/22 09/22/24 04/14/24 History biotin 300 mcg tablet 300 mg BYMOUTH DAILY 02/23/24 09/22/24 04/14/24 History tramadol 50 mg tablet 50 - 100 mg PO Q6H PRN Pain, 02/23/24 09/22/24 04/14/24 History Moderate Folate 1,330 mg PO DAILY 03/15/24 09/22/24 04/14/24 History amino acids-multivit with iron and 1 tablet PO DAILY 03/15/24 09/22/24 Unknown History minerals tablet calcium 600 mg capsule 1,200 mg PO HS 03/15/24 09/22/24 04/14/24 History calcium polycarbophil 625 mg 625 mg PO DAILY 03/15/24 09/22/24 04/14/24 History tablet (Fiber (calcium polycarbophil)) pantoprazole 40 mg tablet,delayed 40 mg PO BID 08/18/24 09/22/24 Unknown History release (Protonix) gabapentin 100 mg capsule 100 mg PO BID PRN 09/02/24 09/22/24 Unknown History Allergies Allergy/AdvReac Type Severity Reaction Status Date / Time adhesive tape Allergy Intermediate Rash Verified 09/22/24 13:11 Iodinated Contrast Media Allergy Mild Hives Verified 09/22/24 13:11 iodine Allergy Unknown Hives Verified 09/22/24 13:11 codeine AdvReac Unknown Hallucinati Verified 09/22/24 13:11 ng morphine AdvReac Unknown Hallucinati Verified 09/22/24 13:11 ng Review of Systems Review of Systems: All systems reviewed & are unremarkable except as noted in HPI and below PMFSH Past Medical History Medical History BMI 26.0-26.9,adult BMI 27.0-27.9,adult Diastolic heart failure Diverticulitis BMI 29.0-29.9,adult Fatty liver Olecranon bursitis of left elbow Chronic back pain Suspected chronic obstructive pulmonary disease based on initial evaluation Pneumonia Asthma exacerbation in COPD Thyroid cancer Coronary artery disease DC in 2010 status post stent x2. Polymyalgia rheumatica Left bundle branch block Degenerative joint disease Type 2 diabetes mellitus Fibromyalgia Hypertension Hypothyroidism Familial tremor Anxiety with depression Vitamin D deficiency Hyperlipidemia Hearing loss Orthostatic hypotension Surgical History Surgical History History of epidermal inclusion cyst excision Left neck. History of hysterectomy History of coronary artery stent placement History of cholecystectomy History of partial thyroidectomy History of colonoscopy with polypectomy History of breast biopsy Family History Family History Grandparent Diabetes mellitus Mother Hypertension Heart disease Ovarian cancer Father Malignant neoplasm of prostate Cerebrovascular accident Daughter Breast cancer Social History Social History Social History: Surrogate medical decision maker: Allen Elisha, spouse. Code status: Full code. Smoking packs per day: 1 Smoking cigarettes per day: 20.0 Smoking status: Former smoker Tobacco type: cigarettes Second hand tobacco smoke exposure: Yes Smoking end date: 02/24/99 Alcohol intake: never Substance use: current Substance use type: marijuana Other substance usage details: tea Last use: 4 weeks Do You Feel Safe in your Home?: Yes Lack of Transportation: No Lack of Food: Never True Current Housing: I Have Housing Concerned About Future Housing: No Difficulty Paying Gas/Electric Bills: No Difficulty Paying for Meds: No Currently Unemployed: No Education: Bachelor's Degree Difficulty w/ Childcare or Family Care: No Living arrangements: with family Additional living arrangements comments: Lives in [place] with spouse. Spiritual care concerns: No Exam Narrative: General appearance: Well-developed, well-nourished Skin: Normal color Head: Normocephalic, nontraumatic Eyes: Clear conjunctiva ENT: Oropharynx normal, ears normal, nose normal Neck: Supple, nontender Chest and respiratory: Airway patent, no respiratory distress, no accessory muscle use Heart: Regular rate/rhythm Abdomen: Soft, severe tenderness left lower quadrant, no guarding or rebound Vascular: Normal peripheral pulses, normal capillary refill. Musculoskeletal: Normal range of motion, nontender back Neurologic: Alert and oriented ?3, MILITARY COMMUNICATIONS SPECIALIST is normal as tested, no gross motor deficit MDM - Abdominal Pain MDM Narrative Medical decision making narrative: Patient presents with left lower quadrant pain Vital signs showing Physical examination consistent with tenderness left lower quadrant Differential diagnosis include diverticulitis, constipation, urinary tract infection, ischemic colitis. Blood workup today includes CBC, CMP, lipase, lactic acid Urinalysis showed CT abdomen and pelvis without contrast showed uncomplicated diverticulitis There was delay of kitten blood test, Patient is afebrile, abdominal exam showed mild tenderness left lower quadrant, CT scan showed uncomplicated diverticulitis. I believe would be okay to discharge patient home on Levaquin and Flagyl without waiting for blood workup. The pt was discharged to home.the pt,s condition upon discharge was fair,education was provided to the pt in reference to the final impression,discharge study results,treatment,prognosis and need for follow up . Differential Diagnosis Differential diagnosis: Likely other (As above) Imaging Data Radiologist's impression: ITS Impressions Abdomen/Pelvis CT 09/25/24 11:06 IMPRESSION: 1. Radiographically uncomplicated diverticulitis at the distal descending colon. Critical Care Time Critical Care Time Critical Care Time: No Discharge Plan Discharge Clinical Impression: Diverticulitis Patient Disposition: Home Condition: Stable Instructions: Antibiotic Form, Diverticulitis (ED), Diverticulitis Diet (ED) Additional Instructions: Return if symptoms are worsening , call your family physician for appointment, take Tylenol as as needed for aches and pain, continue home medications. Patient Language: [place] Prescriptions: New levofloxacin 750 mg tablet 750 mg PO DAILY Qty: 7 5RF metronidazole 500 mg tablet 500 mg PO Q8H 7 Days Qty: 21 0RF No Action aspirin [Adult Low Dose Aspirin] 81 mg tablet,delayed release (DR/EC) 81 mg PO DAILY ascorbic acid (vitamin C) 1,000 mg tablet 1 g PO QPM losartan 50 mg tablet 50 mg PO DAILY Qty: 90 1RF pantoprazole [Protonix] 40 mg tablet,delayed release (DR/EC) 40 mg PO BID cyanocobalamin (vitamin B-12) [Vitamin B-12] 1,000 mcg Tablet 1,000 mcg PO QPM biotin 300 mcg Tablet 300 mg BYMOUTH DAILY tramadol 50 mg tablet 50 - 100 mg PO Q6H PRN (Reason: Pain, Moderate) gabapentin 100 mg capsule 100 mg PO BID PRN omega-3 fatty acids 1,000 mg Capsule 1,000 mg PO QPM turmeric 1,000 mg BYMOUTH DAILY cholecalciferol (vitamin D3) 25 mcg (1,000 unit) Tablet 2,000 unit PO DAILY calcium 600 mg Capsule 1,200 mg PO HS Brainy Tablet 1 tablet PO DAILY Patient Comments: Patient states they do not take Folate 1,330 mg PO DAILY calcium polycarbophil [Fiber (calcium polycarbophil)] 625 mg Tablet 625 mg PO DAILY escitalopram oxalate 20 mg tablet See Rx Instructions .ROUTE .COMPLEX Qty: 90 1RF Dose Instruction: TAKE 1 TABLET BY MOUTH DAILY Rx Instructions: TAKE 1 TABLET BY MOUTH DAILY sucralfate 1 gram tablet 2 g PO BID Qty: 60 2RF levothyroxine 150 mcg tablet 150 mcg PO EVERY OTHER DAY Qty: 45 0RF levothyroxine 125 mcg tablet See Rx Instructions .ROUTE .COMPLEX Qty: 90 1RF Dose Instruction: TAKE 1 TABLET BY MOUTH EVERY OTHER DAY Rx Instructions: TAKE 1 TABLET BY MOUTH EVERY OTHER DAY rosuvastatin 40 mg tablet See Rx Instructions .ROUTE .COMPLEX Qty: 90 0RF Dose Instruction: TAKE 1 TABLET BY MOUTH DAILY Rx Instructions: TAKE 1 TABLET BY MOUTH DAILY montelukast 10 mg tablet See Rx Instructions .ROUTE .COMPLEX Qty: 90 0RF Dose Instruction: TAKE 1 TABLET BY MOUTH AT BEDTIME Rx Instructions: TAKE 1 TABLET BY MOUTH AT BEDTIME metformin 500 mg tablet extended release 24 hr See Rx Instructions .ROUTE .COMPLEX Qty: 360 0RF Dose Instruction: TAKE 2 TABLETS BY MOUTH TWICE DAILY Rx Instructions: TAKE 2 TABLETS BY MOUTH TWICE DAILY Jardiance 25 mg tablet 25 mg PO DAILY Qty: 90 1RF Tradjenta 5 mg tablet 5 mg PO QAM Qty: 90 1RF Follow-up/Referrals: Felix Powell MD [Primary Care Provider] -
--- OUTSIDE RECORDS SUMMARY | 2024-09-25 10:43 | XMS_ITS | Referral Summary ---
Author Organization [facility] [address] Address [address] [place] [address] Care Team Providers Care Gas Scrubber Operator Name Role Phone Felix Powell MD Primary Care Provider [phone] Encounters Date Type Department Care Team Description 09/23/2024 Results Follow-Up 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; Essential hypertension; LBBB (left bundle branch block); Pulmonary hypertension (HCC) 09/13/2024 8:51 AM CDT - 09/13/2024 11:59 PM CDT Hospital Encounter [facility] - Breast Imaging [address] 8 [place] [address] Abnormal mammogram Discharge Disposition: Discharge to home or self care 09/13/2024 8:52 AM CDT - 09/13/2024 11:59 PM CDT Hospital Encounter [facility] - Breast Imaging [address] [facility] [address] 8 [place] [address] Abnormal mammogram Discharge Disposition: Discharge to home or self care 09/06/2024 5:21 PM CDT - 09/06/2024 11:59 PM CDT Hospital Encounter [facility] [address] [place] [address] Discharge Disposition: Discharge to home or self care 09/06/[address] [facility] Cardiology [address] [place] [phone] ProviderCheryle MD 09/03/2024 11:30 AM CDT Office Visit 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 (Primary Dx); Essential hypertension; Hyperlipidemia LDL goal <70; LBBB (left bundle branch block); Former smoker; Pulmonary hypertension (HCC) 08/25/2024 12:05 AM CDT - 08/25/2024 11:59 PM CDT Hospital Encounter [facility]) [address] [place] [address] Discharge Disposition: Discharge to home or self care 08/25/2024 - 08/25/2024 11:59 PM CDT Hospital Encounter [facility] ([facility]) [address] [place] [address] Discharge Disposition: Discharge to home or self [...] 1 tablet (137 mcg total) by mouth acoustic sensor operator before breakfast Active buPROPion XL (WELLBUTRIN XL) [...] mg SL tabletIndications :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 Cardiology [address] [facility] [facility], [address], [place] [address] P:[phone] P:[phone] Echocardiographic Report Patient Name: ALLYSON STAHL C [...] FINDINGS: Interpretation Site: Exam was interpreted at [facility]. Left Ventricle: Normal left ventricular systolic function. [...] Note Checo Allen MD - 09/23/2024 [facility] Cardiology [address] [facility] [facility], [address], [place] [address] P:[phone] P:[phone] Echocardiographic Report Patient Name: ALLYSON STAHL C [...] FINDINGS: Interpretation Site: Exam was interpreted at [facility]. Left Ventricle: Normal left ventricular systolic function. [...] the LEFT breast was performed by the concrete batcher. BREAST PARENCHYMAL COMPOSITION: The breasts are heterogenously [...] the LEFT breast was performed by the concrete batcher. BREAST PARENCHYMAL COMPOSITION: The breasts are heterogenously [...] the LEFT breast was performed by the concrete batcher. BREAST PARENCHYMAL COMPOSITION: The breasts are heterogenously [...] the LEFT breast was performed by the concrete batcher. BREAST PARENCHYMAL COMPOSITION: The breasts are heterogenously [...] images may or may not represent the tejon source data set and thus may contain [...] OF OUTSIDE IMAGING FACILITY PERFORMING OUTSIDE IMAGING: [place], [place] EXAM(S) REVIEWED: 1. BILATERAL DIAGNOSTIC MAMMOGRAM [...] OF OUTSIDE IMAGING FACILITY PERFORMING OUTSIDE IMAGING: [place], [place] EXAM(S) REVIEWED: 1. BILATERAL DIAGNOSTIC MAMMOGRAM [...] images may or may not represent the tejon source data set and thus may contain [...] have not been reviewed by [facility]. There will be no report generated by a [facility] Radiologist. Narrative [facility]_MAMMO[facility] - 09/06/2024 2:49 PM CDT EXAMINATION: Images For Reference Purposes Only us Provider Transcribed Order IMG MAMMO PROCEDURES Final Result Performing Organization Address City/[facility]/ZIP Co de Phone Number [email or web address] * Breast Imaging Diagnostic Outside Reference (08/25/2024 12:00 AM CDT) Impressions [facility] - 09/06/2024 2:42 PM CDT These images are for Reference purposes only and have not been reviewed by [facility]. There will be no report generated by a [facility] Radiologist. Narrative [facility] - 09/06/2024 2:42 PM CDT EXAMINATION: Images For Reference Purposes Only us Provider Transcribed Order IMG MAMMO PROCEDURES Final Result Performing Organization Address [facility] Co de Phone Number RAD_[facility] from Last 3 Months Insurance [facility] MEDICARE ADVANTAGE [facility] Address: [facility] [address] [place] [address] [facility] MEDICARE ADVANTAGE [facility] Address: [facility] [address] [place] [address] Care Teams Gas Scrubber Operator Relationship Specialty Start Date End Date Felix Powell MD [address] [facility] [address] [place] [address] PCP - General 05/24/13
--- OUTSIDE RECORDS SUMMARY | 2024-09-25 10:43 | XMS_ITS | Encounter Summary ---
Author Organization [facility] Healthcare Address [address] [place] [address] Care Team Providers Care Entertainment Director Name Role Phone Felix Powell MD Primary Care Provider [phone] Reason for Visit * Diagnostic Imaging (Routine) - Pending Review Specialty Diagnoses / Procedures Referred By Danyell stinson Referred To Contact Procedures Breast Imaging Diagnostic Outside Reference Transcribed Order, Provider Referral ID Status Reason Start Date Expiration Date V isits Requested Visits Authorized [id number] Pending Review 09/06/2024 10/06/2025 1 1 Encounter Details Date Type Department Care Team (Late st Contact Info) Description 06/11/2019 Hospital Encounter [facility] [address] [place], [place] [id number] Social History Tobacco Use Types Packs/Day Years Used Date Smoking Tobacco: Former Smokeless Tobacco: Never Alcohol Use Standard Drinks/Week Comments No 0 (1 standard drink = 0.6 oz pur e alcohol) Comments Unknown Sex and Gender Information Value Date Recorded Sex Assigned at Not on file 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 Gender Identity Female 09/29/2020 9:57 AM CDT Sexual Orientation Straight 09/29/2020 9: 57 AM CDT documented as of this encounter Plan of Treatment Not on file documented as of this encounter Procedures Procedure Name Priority Date/Time Associated Diagnosis Comments BREAST IMAGING MG DIAGNOSTIC OUTSIDE REFERENCE Routine 06/11/2019 12:00 AM SLAB LIFTING SUPERVISOR documented in this encounter Results * Breast Imaging Diagnostic Outside Reference (06/11/2019 12:00 AM SLAB LIFTING SUPERVISOR) Impressions [facility] - 09/06/2024 2:42 PM CDT [...] on filedocumented in this encounter Care Teams Entertainment Director Relationship Specialty Start Date End Date Felix Powell MD [address] [facility] [address] [place] [address] PCP - General 05/24/13 documented as of this encounter
--- OUTSIDE RECORDS SUMMARY | 2024-09-25 10:43 | XMS_ITS | Encounter Summary ---
Author Organization [facility] Healthcare Address [address] [place] [address] Care Team Providers Care Mechanical Insulator Name Role Phone Felix Powell MD Primary Care Provider [phone] Reason for Visit * Diagnostic Imaging (Routine) - Pending Review Specialty Diagnoses / Procedures Referred By Danyell stinson Referred To Contact Procedures Breast Imaging Diagnostic Outside Reference Transcribed Order, Provider Referral ID Status Reason Start Date Expiration Date V isits Requested Visits Authorized [id number] Pending Review 09/06/2024 10/06/2025 1 1 Encounter Details Date Type Department Care Team (Late st Contact Info) Description 01/27/2019 Hospital Encounter [facility] [address] [place], [place] [id number] Social History Tobacco Use Types Packs/Day Years Used Date Smoking Tobacco: Former Smokeless Tobacco: Never Alcohol Use Standard Drinks/Week Comments No 0 (1 standard drink = 0.6 oz pur e alcohol) Comments Unknown Sex and Gender Information Value Date Recorded Sex Assigned at Not on file 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 There will be no report generated by a [facility] Radiologist. Narrative RAD[facility]MAMMO[facility] - 09/06/2024 2:42 PM CDT EXAMINATION: Images For Reference Purposes Only us Provider Transcribed Order IMG MAMMO PROCEDURES Final Result [facility] documented in this encounter Visit Diagnoses Not on filedocumented in this encounter Care Teams Mechanical Insulator Relationship Specialty Start Date End Date Felix Powell MD [address] [facility] [address] [place] [address] PCP - General 05/24/13 documented as of this encounter
--- OUTSIDE RECORDS SUMMARY | 2024-09-25 10:43 | XMS_ITS | Encounter Summary ---
Author Organization [facility] Healthcare Address [address] [place] [address] Care Team Providers Care Controls Design Engineer Name Role Phone Felix Powell MD Primary Care Provider [phone] Reason for Visit * Diagnostic Imaging (Routine) - Pending Review Specialty Diagnoses / Procedures Referred By Danyell stinson Referred To Contact Procedures Breast Imaging Screening Outside Reference Transcribed Order, Provider Referral ID Status Reason Start Date Expiration Date V isits Requested Visits Authorized [id number] Pending Review 09/06/2024 10/06/2025 1 1 Encounter Details Date Type Department Care Team (Late st Contact Info) Description 01/18/2019 Hospital Encounter [facility] [address] [place], [place] [id number] Social History Tobacco Use Types Packs/Day Years Used Date Smoking Tobacco: Former Smokeless Tobacco: Never Alcohol Use Standard Drinks/Week Comments No 0 (1 standard drink = 0.6 oz pur e alcohol) Comments Unknown Sex and Gender Information Value Date Recorded Sex Assigned at Not on file 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 There will be no report generated by a [facility] Radiologist. Narrative RAD[facility]MAMMO[facility] - 09/06/2024 2:42 PM CDT EXAMINATION: Images For Reference Purposes Only us Provider Transcribed Order IMG MAMMO PROCEDURES Final Result [facility] documented in this encounter Visit Diagnoses Not on filedocumented in this encounter Care Teams Controls Design Engineer Relationship Specialty Start Date End Date Felix Powell MD [address] [facility] [address] [place] [address] PCP - General 05/24/13 documented as of this encounter
--- OUTSIDE RECORDS SUMMARY | 2024-09-25 10:43 | XMS_ITS | Encounter Summary ---
Author Organization [facility] Healthcare Address [address] [place] [address] Care Team Providers Care Acquisitions Assistant Name Role Phone Felix Powell MD Primary Care Provider [phone] Reason for Visit * Diagnostic Imaging (Routine) - Pending Review Specialty Diagnoses / Procedures Referred By Danyell stinson Referred To Contact Procedures Breast Imaging Diagnostic Outside Reference Transcribed Order, Provider Referral ID Status Reason Start Date Expiration Date V isits Requested Visits Authorized [id number] Pending Review 09/06/2024 10/06/2025 1 1 Encounter Details Date Type Department Care Team (Late st Contact Info) Description 02/29/2020 Hospital Encounter [facility] [address] [place], [place] [id number] Social History Tobacco Use Types Packs/Day Years Used Date Smoking Tobacco: Former Smokeless Tobacco: Never Alcohol Use Standard Drinks/Week Comments No 0 (1 standard drink = 0.6 oz pur e alcohol) Comments Unknown Sex and Gender Information Value Date Recorded Sex Assigned at Not on file Legal Sex Female 2:03 AM SUPERVISOR FINISH END Gender Identity Female 09/29/2020 9:57 AM CDT [...] on filedocumented in this encounter Care Teams Acquisitions Assistant Relationship Specialty Start Date End Date Felix Powell MD [address] [email or web address] [address] [place] [address] PCP - General 05/24/13 documented as of this encounter
--- OUTSIDE RECORDS SUMMARY | 2024-09-25 10:43 | XMS_ITS | Encounter Summary ---
Author Organization [facility] Healthcare Address [address] [place] [address] Care Team Providers Care Sanforizer Name Role Phone Felix Powell MD Primary Care Provider [phone] Encounter Details Date Type Department Care Team (Latest Contact Info) Description 09/23/2024 Results Follow-Up [facility] Cardiology at [address] [place] [address] Paulo Veloz MD [address] [place] [address] Transthoracic Echo (TTE) Complete W Doppler/CF Social History Tobacco Use Types Packs/Day Years Used Date Smoking Tobacco: Former Smokeless Tobacco: Never Alcohol Use Standard Drinks/Week Comments No 0 (1 standard drink = 0.6 oz pur e alcohol) Comments Unknown Sex and Gender Information Value Date Recorded Sex Assigned at Not on file Legal Sex Female 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
--- OUTSIDE RECORDS SUMMARY | 2024-09-25 10:43 | XMS_ITS | Clinical Summary ---
Author Organization [facility] [address] Address [address] [place] [address] Care Team Providers Care Substance Abuse Clinician Name Role Phone Felix Powell MD Primary Care Provider [phone] Allergies Active Allergy Reactions Criticality Noted Date [...] 1 tablet (137 mcg total) by mouth lpn medical assistant before breakfast Active buPROPion XL (WELLBUTRIN XL) [...] mg SL tabletIndications :Coronary artery disease involving blue lake coronary artery of blue lake heart without angina pectoris Place 1 tablet [...] smoker 02/23/2021 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lving blue lake coronary artery of blue lake heart without angina pectoris 06/19/2017 History of coronary artery stent placement 06/19 Encounters Date Type Department Care Team Description 09/23/2024 3:00 PM CDT Ancillary Procedure [facility] Cardiology at [address] [place] [address] Coronary artery disease involving blue lake coronary artery of blue lake heart without angina pectoris; Essential hypertension; LBBB (left bundle branch block); Pulmonary hypertension (HCC) 09/23/2024 Results Follow-Up [facility] Cardiology at [address] [place] [address] Checo Allen MD Transthoracic Echo (TTE) Complete W Doppler/CF 09/13/2024 8:52 AM CDT - 09/13/2024 11:59 PM CDT Hospital Encounter [facility] - Breast Imaging [address] [place] [address] Floor 8 [place] [address] Abnormal mammogram Discharge Disposition: Discharge to home or self care 09/13/2024 8:51 AM CDT - 09/13/2024 11:59 PM CDT Hospital Encounter [facility] - Breast Imaging [address] [place] [address] 8 [place] [address] Abnormal mammogram Discharge Disposition: Discharge to home or self care 09/06/2024 5:21 PM CDT - 09/06/2024 11:59 PM CDT Hospital Encounter [facility] [address] [place] [address] Discharge Disposition: Discharge to home or self care 09/06/2024 Orders Only [facility] Medical [facility] Cardiology [address] [facility] [address] [place] [address] Cheryle Bowling MD 09/03/2024 11:30 AM CDT Office Visit [facility] Cardiology at [address] [place] [address] Checo Allen MD Coronary artery disease involving blue lake coronary artery of blue lake heart without angina pectoris (Primary Dx); Essential hypertension; Hyperlipidemia LDL goal <70; LBBB (left bundle branch block); Former smoker; Pulmonary hypertension (HCC) 08/25/2024 12:05 AM CDT - 08/25/2024 11:59 PM CDT Hospital Encounter [facility] Radiology [facility]) [address] [place] [address] Discharge Disposition: Discharge to home or self care 08/25/2024 - 08/25/2024 11:59 PM CDT Hospital Encounter [facility] [address] [place] [address] Discharge Disposition: Discharge to home or self [...] on file Legal 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 Left Ventricle: Normal left ventricular systolic function. [...] Procedure Note Checo Allen MD - 09/23/2024 [facility] Cardiology [address] [facility], [address], [place] [address] P:[phone] P:[phone] Echocardiographic Report Patient Name: ALLYSON STAHL C [...] FINDINGS: Interpretation Site: Exam was interpreted at [facility]. Left Ventricle: Normal left ventricular systolic function. [...] the LEFT breast was performed by the maintenance data analyst. BREAST PARENCHYMAL COMPOSITION: The breasts are heterogenously [...] the LEFT breast was performed by the maintenance data analyst. BREAST PARENCHYMAL COMPOSITION: The breasts are heterogenously [...] the LEFT breast was performed by the maintenance data analyst. BREAST PARENCHYMAL COMPOSITION: The breasts are heterogenously [...] the LEFT breast was performed by the maintenance data analyst. BREAST PARENCHYMAL COMPOSITION: The breasts are heterogenously [...] images may or may not represent the blue lake source data set and thus may contain [...] OF OUTSIDE IMAGING FACILITY PERFORMING OUTSIDE IMAGING: [place], [place] EXAM(S) REVIEWED: 1. BILATERAL DIAGNOSTIC MAMMOGRAM [...] OF OUTSIDE IMAGING FACILITY PERFORMING OUTSIDE IMAGING: [place], [place] EXAM(S) REVIEWED: 1. BILATERAL DIAGNOSTIC MAMMOGRAM [...] images may or may not represent the blue lake source data set and thus may contain [...] only and have not been reviewed by [facility]. There will be no report generated by a [facility]iologist. Narrative RAD_MAMMO_[facility] - 09/06/2024 2:49 PM CDT EXAMINATION: Images For Reference Purposes Only us Provider Transcribed Order IMG MAMMO PROCEDURES Final Result Performing Organization Address [facility] Co de Phone Number [email or web address] * Breast Imaging Diagnostic Outside Reference (08/25/2024 12:00 AM CDT) Impressions RAD_MAMMO[facility] - 09/06/2024 2:42 PM CDT These images are for Reference purposes only and have not been reviewed by [facility]. There will be no report generated by a [facility]iologist. Narrative RAD_MAMMO[facility] - 09/06/2024 2:42 PM CDT EXAMINATION: Images For Reference Purposes Only us Provider Transcribed Order IMG MAMMO PROCEDURES Final Result RAD_MAMMO[facility] from Last 3 Months Insurance UHC MEDICARE ADVANTAGE [employer] MEDICARE ADVANTAGE Care Teams Substance Abuse Clinician Relationship Specialty Start Date End Date Felix Powell MD [address] [facility] [address] MED[address] [place] [id number] PCP - General 05/24/13
--- OUTSIDE RECORDS SUMMARY | 2024-09-25 10:43 | XMS_ITS | Continuity of Care Document ---
Author Organization [facility] Address [address] [place] [address] Phone Care Team Providers Care Glass Block Bender Name Role Phone Bola TIDWELL, ELLENT, Jimi [...] Diagnoses Date Provider Providers Copied on Encounter [facility] [address], [place], [place], [id number], tel:[phone] [place] No Information 4 Bola Krause. . [facility] [facility] [address], [place], [place], [id number], [place] tel:[phone] [place] No Information 4 Klahn Jimi. . Referring Provider: Christen Orta [address] [facility] [address], [place], [address]. tel:[phone] [facility], [address], [place], [place], [id number], [place] tel:[phone] [place] No Information 4 Klahn Jimi. . Referring Provider: Christen Orta [address] [facility] [address], [place], [address]. tel:[phone] [facility] [address], [place], [place], [id number], [place] tel:[phone] [place] No Information 4 Klahn Jimi. . Referring Provider: Tasneem Orta [address] [facility] [address], [place], [address]. tel:[phone] [facility] [address], [place], [place], [address], [place] tel:[phone] [place] No Information 4 Klahn Jimi. . Referring Provider: Tasneem Orta [address] [facility] [address], [place], [address]. tel:[phone] [facility] [address], [place], [place], [id number], [place] tel:[phone] [place] No Information 3 Klahn Jimi. . Referring Provider: Tasneem Orat [address] [facility] [address], [place], [address]. tel:[phone] [facility], [place], [place], [address], [place] tel:[phone] [place] No Information 3 Modglin Alex. . Referring Provider: Christen [address], [place], [address]. tel:[phone], [place], [place], [id number], tel:[phone] [place] No Information Dec-0 - 3 Klahn Jimi. . Referring Provider: Felix Powell [address] [place] [address] [address], [place], [address]. tel:[phone] [address], [place], [place], [id number], [place] tel:[phone] [place] No Information Dec-0 3 Klahn Jimi. . Referring Provider: Felix Powell [address] [place] [address] [address], [place], [address]. tel:[phone], [place], [place], [id number], [place] tel:[phone] [place] No Information Sep-1 3 Klahn Jimi. . Referring Provider: Felix Powell [address] [place] [address] [address], [place], [address]. tel:[phone], [place], [place], [address], tel:[phone] Jennings No Information Sep-0 3 Klahn Jimi. . Referring Provider: Felix Powell [address] [place] [address] [address], [place], [address]. tel:[phone], [place], [place], [id number], [place] tel:[phone] [place] No Information Dec-2 3 Klahn Jimi. . Referring Provider: Christen Orta[address] [place] [address] [address], [place], [address]. tel:[phone] Family History Family Member Type Diagnosis Age At Onset No Information Payers Payer name Insurance type Covered constitution party ID Roland rust(s) [employer] Medicare Replacement CI [id number] Social History Type Description Quantity Date Captured [...]
--- OUTSIDE RECORDS SUMMARY | 2024-09-25 10:43 | XMS_ITS | Encounter Summary ---
Author Organization [facility] Healthcare Address [address] [place] [address] Care Team Providers Care Sand Caster Name Role Phone Felix Powell MD Primary Care Provider [phone] Reason for Visit * Diagnostic Imaging (Routine) - Pending Review Specialty Diagnoses / Procedures Referred By Danyell stinson Referred To Contact Procedures Breast Imaging US Outside Reference Transcribed Order, Provider Referral ID Status Reason Start Date Expiration Date V isits Requested Visits Authorized [id number] Pending Review 09/06/2024 10/06/2025 1 1 Encounter Details Date Type Department Care Team (Late st Contact Info) Description 03/01/2020 Hospital Encounter [facility] [address] [place], [place] [id number] Social History Tobacco Use Types Packs/Day Years Used Date Smoking Tobacco: Former Smokeless Tobacco: Never Alcohol Use Standard Drinks/Week Comments No 0 (1 standard drink = 0.6 oz pur e alcohol) Comments Unknown Sex and Gender Information Value Date Recorded Sex Assigned at Not on file Legal Sex Female 2:03 AM MATERIAL HAULER Gender Identity Female 09/29/2020 9:57 AM CDT [...] and have not been reviewed by [facility]. There will be no report generated by a [facility]iologist. Narrative [facility] - 09/06/2024 2:42 PM CDT EXAMINATION: Images For Reference Purposes Only us Provider Transcribed Order IMG MAMMO PROCEDURES Final Result [facility] documented in this encounter Visit Diagnoses Not on filedocumented in this encounter Care Teams Sand Caster Relationship Specialty Start Date End Date Felix Powell MD [address] [facility] [address] [place] [address] PCP - General 05/24/13 documented as of this encounter
--- OUTSIDE RECORDS SUMMARY | 2024-09-25 10:43 | XMS_ITS | Encounter Summary ---
Author Organization [facility] Healthcare Address [address] [place] [address] Care Team Providers Care Field Map Editor Name Role Phone Felix Powell MD Primary Care Provider [phone] Reason for Visit * Diagnostic Imaging (Routine) - Pending Review Specialty Diagnoses / Procedures Referred By Danyell stinson Referred To Contact Procedures Breast Imaging US Outside Reference Transcribed Order, Provider Referral ID Status Reason Start Date Expiration Date V isits Requested Visits Authorized [id number] Pending Review 09/06/2024 10/06/2025 1 1 Encounter Details Date Type Department Care Team (Late st Contact Info) Description 06/11/2019 12:05 AM CANVAS GOODS FABRICATOR Hospital Encounter [facility] ([facility]) [address] [place] [phone] Social History Tobacco Use Types Packs/Day Years Used Date Smoking Tobacco: Former Smokeless Tobacco: Never Alcohol Use Standard Drinks/Week Comments No 0 (1 standard drink = 0.6 oz pur e alcohol) Comments Unknown Sex and Gender Information Value Date Recorded Sex Assigned at Not on file Legal Sex Female 2:03 AM CANVAS GOODS FABRICATOR Gender Identity Female 09/29/2020 9:57 AM CDT Sexual Orientation Straight 09/29/2020 9: 57 AM CDT documented as of this encounter Plan of Treatment Not on file documented as of this encounter Procedures Procedure Name Priority Date/Time Associated Diagnosis Comments BREAST IMAGING US OUTSIDE REFERENCE Routine 06/11/2019 12:05 AM CANVAS GOODS FABRICATOR documented in this encounter Results * Breast Imaging US Outside Reference (06/11/2019 12:05 AM CANVAS GOODS FABRICATOR) Impressions [facility] - 09/06/2024 2:42 PM CDT [...] on filedocumented in this encounter Care Teams Field Map Editor Relationship Specialty Start Date End Date Felix Powell MD [address] [place] [address] PCP - General 05/24/13 documented as of this encounter
[2024-09-25 12:10] VITALS: BP 130/72; PULSE 85; RESP 16; TEMP 37.1; O2SAT 97
[2024-09-25 12:15] LABS: Add Urine Microscopic? YES; Appearance Urine Clear (Clear); Bilirubin Urine Negative (Negative); Blood Urine 2+ (Negative); Color Urine Yellow (Yellow); Glucose Urine UA 3+ mg/dL (Negative); Ketones Urine Negative (Negative); Leukocyte Esterase Ur Negative LEU/UL (Negative); Nitrate Urine Negative (Negative); Protein Urine 2+ mg/dL (Negative); Specific Grav Ur 1.025 (1.001-1.035); pH Urine 5.5 (5.0-9.0)
[2024-09-25 12:19] LABS: Bacteria Urine None Seen /hpf; RBC Urine 0-2 /hpf (0-2); Squamous Epithelial Cell Urine None Seen /hpf (Few); WBC Urine 0-5 /hpf (0-3)
[2024-09-25 12:31] LABS: Need Manual Microscopic Reviewed
== END 2024-09-25 12:45 | disposition home or self-care (01) ==
PROVIDERS: Emergency Provider Emergency Medicine; PCP Internal Medicine
DX: K57.32 Diverticulitis of large intestine without perforation or abscess without bleeding (principal); I11.0 Hypertensive heart disease with heart failure; I50.30 Unspecified diastolic (congestive) heart failure; G89.29 Other chronic pain; J45.909 Unspecified asthma, uncomplicated; Z85.850 Personal history of malignant neoplasm of thyroid; E11.9 Type 2 diabetes mellitus without complications; M79.7 Fibromyalgia; F41.9 Anxiety disorder, unspecified; F32.A Depression, unspecified; E78.5 Hyperlipidemia, unspecified; Z90.710 Acquired absence of both cervix and uterus
CPT/HCPCS: 74176; 81001; 99284

== ENCOUNTER 2024-10-09 15:41 | Inpatient (IN) | payer MEDICARE, SELFPAY ==
[2024-10-09] VITALS (7 sets, daily range): BP systolic 82–111; BP diastolic 49–56; PULSE 84–109; RESP 11–21; TEMP 36.5–36.8; O2SAT 95–99; BMI 28.1
--- NOTE | ~2024-10-09 | XR_ITS ---
XR chest 1V portable 10/16/2024 07:21 Indication: Shortness of breath Procedure: AP portable chest Comparison: Comparison to multiple prior studies sequentially, with oldest reviewed study dated 10/12. Findings: Stable asymmetric right-sided airspace disease. Small right pleural effusion. No pneumothor ax. Heart size normal. No acute osseous abnormality. There are degenerative changes of the left gleno humeral joint. Right IJ central venous catheter tip in the SVC. Impression: 1: Improved asymmetric right-sided airspace disease which may represent asymmetric edema or pneumonia . Reviewed, dictated and finalized at location B. Impression: 1: Improved asymmetric right-sided airspace disease which may represent asymmet edwar edema or pneumonia.
--- NOTE | ~2024-10-09 | US_ITS ---
EXAMINATION: US thoracentesis DATE: 10/19/2024 14:24 INDICATION: Large right and moderate-sized left pleural effusions TECHNIQUE: The procedure and its risks and benefits were discussed with the patient. Potential risks discussed included bleeding, infection, and pneumothorax. The patient understood the risks and agreed to proceed. [employer] ultrasound images were obtained of both the left and right hemithoraces. There has been significant interval decrease in size of now small bilateral pleural effusions and therefore th e planned thoracentesis was deferred. I discussed this with Dr. Delvalle was in agreement with the felisa webb. FINDINGS/IMPRESSION: Ultrasound images demonstrate a small bilateral subpulmonic pleural effusions, significantly decrease d in size from CT performed 3 days prior and the planned thoracentesis was deferred. Reviewed, dictated and finalized at location B.
--- NOTE | ~2024-10-09 | XR_ITS ---
Supine and upright views of the abdomen Clinical history: Abdominal pain, ileus Findings: Bowel gas pattern is nonspecific. No evidence for obstruction or free air. There is an irre gular markedly hyperdense focal opacity in the pelvis. Osseous structures are intact. Impression: No acute abnormality is seen. Irregular markedly hyperdense opacity in the pelvis. Correlate for surgical/procedural history or tra umatic history/foreign body. Reviewed, dictated and finalized at location . Impression: No acute abnormality is seen. Irregular markedly hyperdense opacity in the pelvis. Correlate for surgical/pro cedural history or traumatic history/foreign body.
--- NOTE | ~2024-10-09 | XR_ITS ---
EXAMINATION: XR chest 1V portable DATE: 10/12/2024 14:53 INDICATION: Clicking catheter placement TECHNIQUE: frontal view of the chest was obtained. COMPARISON: Chest radiograph dated 10/12/2024 FINDINGS: Patient is rotated slightly towards the left. Large-bore right internal jugular central venous cathet er with distal tip at the caudal superior vena cava. Again seen are bilateral increased interstitial opacities consistent with mild marrow edema. Hazy airspace opacities in the right mid to lower lung z one and left lower lung zone with blunting of the bilateral costophrenic angles consistent with small bilateral posterior layering pleural effusions, right greater than left. Retrocardiac consolidation and patchy opacities in the right lower lung zone most likely associated atelectasis although differe ntial includes pneumonia. No pneumothorax. The mediastinal silhouette is normal. IMPRESSION: 1. Persistent interstitial and airspace opacities in both lungs consistent with mild pulmonary edema and small bilateral pleural effusions. 2. More dense opacities at the bilateral lower lung zones which could represent associated basilar at electasis or pneumonia. 3. New right internal jugular central venous catheter with distal tip at the caudal superior vena cav a. Reviewed, dictated and finalized at location A. IMPRESSION: 1. Persistent interstitial and airspace opacities in both lungs consistent with mild pulmonary edema and small bilateral pleural effusions. 2. More dense opacities at the bilateral lower lung zones which could represent associated basilar atelectasis or pneumonia. 3. New right internal jugular central venous catheter with distal tip at the ca udal superior vena cava.
--- NOTE | ~2024-10-09 | XR_ITS ---
XR chest 1V portable 10/15/2024 09:10 Indication: Shortness of breath Procedure: AP portable chest Comparison: 10/14/2024 and 10/12/2024 Findings: There is bilateral airspace disease, asymmetric on the right. Airspace disease has progress ed since prior examinations. Right IJ central line tip in the SVC. No significant effusion. No pneumo thorax. Stable cardiomediastinal silhouette. No acute osseous abnormality. Impression: 1: Progression of bilateral airspace disease, right greater than left, consistent with edema. Reviewed, dictated and finalized at location [] Impression: 1: Progression of bilateral airspace disease, right greater than left, consiste nt with edema.
--- NOTE | ~2024-10-09 | US_ITS ---
Renal-Bladder ultrasound Clinical History: Elevated creatinine Technique: Real-time sonographic imaging of the kidneys and urinary bladder was performed. Findings: The right kidney measures 12.0 cm in length and the left kidney measures 10.1 cm. There is no hydronephrosis or renal calculus identified. Renal cortical echogenicity is within normal limits. No renal mass lesion is identified. The urinary bladder is largely collapsed at the time of this exam. No intraluminal echoes are identif ied. No abnormal wall thickening is seen. Impression: Unremarkable ultrasound of the kidneys and urinary bladder. Reviewed, dictated and finalized at location . Impression: Unremarkable ultrasound of the kidneys and urinary bladder.
--- NOTE | ~2024-10-09 | XR_ITS ---
Portable chest x-ray Comparison: 10/01/2023 Clinical History: Shortness of breath Findings: Small bilateral pleural effusions are present. There is hazy bibasilar airspace disease. Cardiomediastinal silhouette is stable. Bones and soft tissues are unremarkable. Impression: Moderate pulmonary edema pattern with small bilateral pleural effusions. Reviewed, dictated and finalized at [facility]. Impression: Moderate pulmonary edema pattern with small bilateral pleural effusions.
--- NOTE | ~2024-10-09 | CT_ITS ---
EXAMINATION: CT abdomen pelvis wo con DATE: 10/09/2024 16:04 INDICATION: ab pain, weakness TECHNIQUE: Computed tomography (CT) of the abdomen and pelvis was performed without intravenous contr ast. Automated exposure control and iterative reconstruction technique were employed. The dose-length product was 218.20 mGy-cm. COMPARISON: 09/25/2024. FINDINGS: Lower thorax: Coronary artery calcifications. Trace pericardial fluid. Scattered calcified and noncal cified sub-6 mm pulmonary nodules. Liver: Normal. Biliary/Gallbladder: Gallbladder is absent. The common bile duct is dilated to 10 mm, a chronic findi ng, probably secondary to cholecystectomy. There is mild inflammatory stranding surrounding the bile ducts, presumably reactive.. Pancreas: Mild stranding surrounding the pancreatic head and uncinate process. Spleen: Normal. Adrenals:No mass. Kidneys: No suspicious mass, obstructing stone, or hydronephrosis. GI tract: Small hiatal hernia. Mild dilation of the third and fourth portions of the duodenum. No lar ge bowel dilation. Appendix surgically absent. Diverticulosis without diverticulitis. Nearly resolved inflammatory change surrounding diverticula of the distal descending colon. Mesentery/Peritoneum: No ascites, mass, or free air. Mild stranding in the central mesentery. Retroperitoneum: No mass. Atherosclerotic calcifications of intra-abdominal arterial vessels. Pelvis: Unremarkable urinary bladder. Uterus is likely surgically absent. Ovaries not confidently josse ntified. Soft Tissues: Small uncomplicated appearing fat-containing umbilical hernia. Bones: No acute osseous finding. IMPRESSION: Trace pericardial effusion. Scattered calcified and noncalcified sub-6 mm pulmonary nodules, likely representing granulomas. Mild inflammatory change surrounding the pancreatic head and uncinate process, correlate for clinical findings of pancreatitis. Mild inflammatory stranding/edema in the proximal bile ducts, presumably related to the pancreatic pr ocess, noting that ascending cholangitis could appear similarly. Mild dilation of the third and fourth portions of the duodenum, presumably ileus related to the pancr eatic process. Reviewed, dictated and finalized at location K. IMPRESSION: Trace pericardial effusion. Scattered calcified and noncalcified sub-6 mm pulmonary nodules, likely represe nting granulomas. Mild inflammatory change surrounding the pancreatic head and uncinate process, correlate for clinical findings of pancreatitis. Mild inflammatory stranding/edema in the proximal bile ducts, presumably relate d to the pancreatic process, noting that ascending cholangitis could appear sim ilarly. Mild dilation of the third and fourth portions of the duodenum, presumably ileu s related to the pancreatic process.
--- NOTE | ~2024-10-09 | XR_ITS ---
Portable chest x-ray Comparison: 10/12/2024 Clinical History: Shortness of breath Findings: Right IJ line in place. There is probable chronic interstitial disease diffusely involving the lungs. Probable minimal left pleural effusion. Cardiomediastinal silhouette is stable. Bones an d soft tissues are unremarkable. Impression: Extensive chronic interstitial disease with possible minimal left pleural effusion. Right IJ line in place. Reviewed, dictated and finalized at location M. Impression: Extensive chronic interstitial disease with possible minimal left pleural effus ion. Right IJ line in place.
--- NOTE | ~2024-10-09 | XR_ITS ---
EXAMINATION: XR chest 1V portable DATE: 10/23/2024 05:38 INDICATION: Congestive heart failure TECHNIQUE: frontal view of the chest was obtained. COMPARISON: Chest radiograph dated 10/20/2024 FINDINGS: Right apical pleural-parenchymal scarring. Asymmetric increased opacity of the right lung and chest w all relative to the left due to some leftward rotation of the patient. Persistent more subtle patchy airspace opacities in the right upper and lower lung zones. Mild bibasilar opacities with blunting at the costophrenic angles consistent with small bilateral pleural effusions and associated basilar ate lectasis.. The cardiomediastinal silhouette is normal. Coronary artery stenting. Likely tunneled larg e-bore dual-lumen left internal jugular central venous catheter with distal tip at the superior cavoa trial junction. Cholecystectomy clips at the right upper quadrant. IMPRESSION: 1. Mild airspace opacities in the right upper and lower lung zones and bilateral lung bases which cou ld represent atelectasis or pneumonia. 2. Small bilateral pleural effusions. Reviewed, dictated and finalized at location A. IMPRESSION: 1. Mild airspace opacities in the right upper and lower lung zones and bilatera l lung bases which could represent atelectasis or pneumonia. 2. Small bilateral pleural effusions.
--- NOTE | ~2024-10-09 | XR_ITS ---
XR chest port-a-cath/central Ordering provider: Raul Lozano DO History: 78 years Female with . POST PLACEMENT TUNNELED DIALYSIS . Comparison: October 16, 2024 FINDINGS: MEDIASTINUM: The cardiac silhouette is not enlarged. Left permacath with the tip overlying the right atrium. Right central line is also noted with the tip overlying the superior vena cava. Congestive hi la. LUNGS: No pneumothorax. Opacification in the right lower lobe suggestive of atelectasis versus pneumonia. Minimal opacificati on in the left lung base medially. Minimal opacification in the left upper lobe area. Opacification i n the left apical area which may be minimal effusion. Interstitial thickening is seen bilaterally whi ch may indicate underlying pulmonary edema. OTHER: No free air under the diaphragm. IMPRESSION: Bilateral opacification suggestive of pneumonia more prominent in the right lung base. Underlying pul monary edema is not excluded. Reviewed, dictated and finalized at location A. IMPRESSION: Bilateral opacification suggestive of pneumonia more prominent in the right winnie g base. Underlying pulmonary edema is not excluded.
--- NOTE | ~2024-10-09 | XR_ITS ---
INTRAOPERATIVE FLUOROSCOPY: CLINICAL HISTORY: 78 years old Female; PLACEMENT TUNNELED DIALYSIS PROCEDURE COMMENTS: Limited intraoperative fluoroscopy of the chest was performed. CUMULATIVE DOSE: 3.5 mGy FLUOROSCOPY TIME: 12.9 seconds FINDINGS/IMPRESSION: Please refer to operative note for further details. Reviewed, dictated and finalized at location A.
--- NOTE | ~2024-10-09 | CT_ITS ---
CLINICAL INDICATION: Tachypnea now with an oxygen requirement (prior to ultrafiltration) COMPARISON: Reference is made to multiple plain film evaluations of the chest performed most recently approximately 8 hours prior to this examination and dating back to 10/12/2024. TECHNIQUE: Multiple contiguous axial images of the chest was performed without the administration of intravenous contrast. This CT examination was performed utilizing dose reduction techniques. DLP: 316 mGy-cm FINDINGS/OBSERVATIONS: LUNG: Biapical scarring. Large right and moderate left-sided pleural effusions, with adjacent compressive atelectasis. Patchy groundglass opacification centrally within the right middle lobe and right upper lobe, finding s suggesting asymmetric pulmonary edema. HEART: The heart is of normal size, with a small pericardial effusion. MEDIASTINUM: No pathologically enlarged or morphologically suspicious lymph nodes are identified within the medias tinum, bilateral axilla, within the soft tissues of the anterior chest wall. SOFT TISSUES OF THE CHEST: Unremarkable. BONES OF THE CHEST: No acute fracture. No lytic or blastic lesions are identified. IMPRESSION: Large right and moderate left-sided pleural effusions with adjacent compressive atelectasis. Findings within the right middle and upper lobes suggesting asymmetric pulmonary edema. Small pericardial effusion. Reviewed, dictated and finalized at location A. IMPRESSION: Large right and moderate left-sided pleural effusions with adjacent compressive atelectasis. Findings within the right middle and upper lobes suggesting asymmetric pulmonar y edema. Small pericardial effusion.
--- OUTSIDE RECORDS SUMMARY | 2024-10-09 15:43 | XMS_ITS | Encounter Summary ---
Author Organization [facility] Healthcare Address [address] [place] [address] Care Team Providers Care Instructional Coach Name Role Phone Felix Powell MD Primary Care Provider Reason for Visit * Diagnostic Imaging (Routine) - Pending Review Specialty Diagnoses / Procedures Referred By Danyell stinson Referred To Contact Procedures Breast Imaging US Outside Reference Transcribed Order, Provider Referral ID Status Reason Start Date Expiration Date V isits Requested Visits Authorized [id number] Pending Review 09/06/2024 10/06/2025 1 1 Encounter Details Date Type Department Care Team (Late st Contact Info) Description 06/11/2019 12:05 AM ARTIST COLOR SEPARATION Hospital Encounter [facility] ([facility] [address] [place] [phone] Social History Tobacco Use Types Packs/Day Years Used Date Smoking Tobacco: Former Smokeless Tobacco: Never Alcohol Use Standard Drinks/Week Comments No 0 (1 standard drink = 0.6 oz pur e alcohol) Comments Unknown Sex and Gender Information Value Date Recorded Sex Assigned at Not on file Legal Sex Female 2:03 AM ARTIST COLOR SEPARATION Gender Identity Female 09/29/2020 9:57 AM CDT Sexual Orientation Straight 09/29/2020 9: 57 AM CDT documented as of this encounter Plan of Treatment Not on file documented as of this encounter Procedures Procedure Name Priority Date/Time Associated Diagnosis Comments BREAST IMAGING US OUTSIDE REFERENCE Routine 06/11/2019 12:05 AM ARTIST COLOR SEPARATION documented in this encounter Results * Breast Imaging US Outside Reference (06/11/2019 12:05 AM ARTIST COLOR SEPARATION) Impressions [facility] - 09/06/2024 2:42 PM CDT These images are for Reference purposes only and have not been reviewed by [facility]. There will be no report generated by a [facility] Radiologist. Narrative [facility] - 09/06/2024 2:42 PM CDT EXAMINATION: Images For Reference Purposes Only us Provider Transcribed Order IMG MAMMO PROCEDURES Final Result [facility] documented in this encounter Visit Diagnoses Not on filedocumented in this encounter Care Teams Instructional Coach Relationship Specialty Start Date End Date Felix Powell MD [address] [place] [address] PCP - General 05/24/13 documented as of this encounter
--- OUTSIDE RECORDS SUMMARY | 2024-10-09 15:43 | XMS_ITS | Encounter Summary ---
Author Organization [facility] Healthcare Address [address] [place] [address] Care Team Providers Care Health And Wellness Sales Consultant Name Role Phone Felix Powell MD Primary Care Provider Reason for Visit * Diagnostic Imaging (Routine) - Pending Review Specialty Diagnoses / Procedures Referred By Danyell stinson Referred To Contact Procedures Breast Imaging Diagnostic Outside Reference Transcribed Order, Provider Referral ID Status Reason Start Date Expiration Date V isits Requested Visits Authorized [id number] Pending Review 09/06/2024 10/06/2025 1 1 Encounter Details Date Type Department Care Team (Late st Contact Info) Description 01/27/2019 Hospital Encounter [facility]) [address] [place], [place] [phone] Social History Tobacco Use Types Packs/Day Years Used Date Smoking Tobacco: Former Smokeless Tobacco: Never Alcohol Use Standard Drinks/Week Comments No 0 (1 standard drink = 0.6 oz pur e alcohol) Comments Unknown Sex and Gender Information Value Date Recorded Sex Assigned at Not on file Legal Sex Female 2:03 AM VETERANS REHABILITATION COUNSELOR Gender Identity Female 09/29/2020 9:57 AM [...] only and have not been reviewed by [facility]. There will be no report generated by a [facility] Radiologist. Narrative [facility] - 09/06/2024 2:42 PM CDT EXAMINATION: Images For Reference Purposes Only us Provider Transcribed Order IMG MAMMO PROCEDURES Final Result [facility] documented in this encounter Visit Diagnoses Not on filedocumented in this encounter Care Teams Health And Wellness Sales Consultant Relationship Specialty Start Date End Date Felix Powell MD [address] [facility] [address] [place] [address] PCP - General 05/24/13 documented as of this encounter
--- OUTSIDE RECORDS SUMMARY | 2024-10-09 15:43 | XMS_ITS | Encounter Summary ---
Author Organization [facility] Healthcare Address [address] [place] [address] Care Team Providers Care Manager Of Exhibitions And Collections Name Role Phone Felix Powell MD Primary Care Provider [phone] Reason for Visit * Diagnostic Imaging (Routine) - Pending Review Specialty Diagnoses / Procedures Referred By Danyell stinson Referred To Contact Procedures Breast Imaging Diagnostic Outside Reference Transcribed Order, Provider Referral ID Status Reason Start Date Expiration Date V isits Requested Visits Authorized [id number] Pending Review 09/06/2024 10/06/2025 1 1 Encounter Details Date Type Department Care Team (Late st Contact Info) Description 02/29/2020 Hospital Encounter [facility]) [address] [place], [place] [phone] Social History Tobacco Use Types Packs/Day Years Used Date Smoking Tobacco: Former Smokeless Tobacco: Never Alcohol Use Standard Drinks/Week Comments No 0 (1 standard drink = 0.6 oz pur e alcohol) Comments Unknown Sex and Gender Information Value Date Recorded Sex Assigned at Not on file Legal Sex Female 2:03 AM INSTRUMENTS SALES REPRESENTATIVE Gender Identity Female 09/29/2020 9:57 AM CDT [...] have not been reviewed by [facility]. There will be no report generated by a [facility] Radiologist. Narrative [facility]MO[facility] - 09/06/2024 2:42 PM CDT EXAMINATION: Images For Reference Purposes Only us Provider Transcribed Order IMG MAMMO PROCEDURES Final Result [facility] documented in this encounter Visit Diagnoses Not on filedocumented in this encounter Care Teams Manager Of Exhibitions And Collections Relationship Specialty Start Date End Date Felix Powell MD [address] [facility] [address] [place] [address] PCP - General 05/24/13 documented as of this encounter
--- OUTSIDE RECORDS SUMMARY | 2024-10-09 15:43 | XMS_ITS | Encounter Summary ---
Author Organization [facility] Healthcare Address [address] [place] [address] Care Team Providers Care Child Care Education Coordinator Name Role Phone Felix Powell MD Primary Care Provider [phone] Reason for Visit * Diagnostic Imaging (Routine) - Pending Review Specialty Diagnoses / Procedures Referred By Danyell stinson Referred To Contact Procedures Breast Imaging Screening Outside Reference Transcribed Order, Provider Referral ID Status Reason Start Date Expiration Date V isits Requested Visits Authorized [id number] Pending Review 09/06/2024 10/06/2025 1 1 Encounter Details Date Type Department Care Team (Late st Contact Info) Description 01/18/2019 Hospital Encounter [facility]) [address] [place], [place] [phone] Social History Tobacco Use Types Packs/Day Years Used Date Smoking Tobacco: Former Smokeless Tobacco: Never Alcohol Use Standard Drinks/Week Comments No 0 (1 standard drink = 0.6 oz pur e alcohol) Comments Unknown Sex and Gender Information Value Date Recorded Sex Assigned at Not on file Legal Sex Female 2:03 AM TEAM SUPERVISOR Gender Identity Female 09/29/2020 9:57 AM [...] on filedocumented in this encounter Care Teams Child Care Education Coordinator Relationship Specialty Start Date End Date Felix Powell MD [address] [facility] [address] [place] [address] PCP - General 05/24/13 documented as of this encounter
--- OUTSIDE RECORDS SUMMARY | 2024-10-09 15:43 | XMS_ITS | Clinical Summary ---
Author Organization [facility] [address] Address [address] [place] [address] Care Team Providers Care Crossing Guard Name Role Phone Felix Powell MD Primary Care Provider [phone] Allergies Active Allergy Reactions Criticality Noted Date [...] 1 tablet (137 mcg total) by mouth cupola charger before breakfast Active buPROPion XL (WELLBUTRIN XL) [...] mg SL tabletIndications :Coronary artery disease involving [place] coronary artery of [place] heart without angina pectoris Place 1 tablet [...] smoker 02/23/2021 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lving [place] coronary artery of [place] heart without angina pectoris 06/19/2017 History of coronary artery stent placement 06/19 Encounters Date Type Department Care Team Description 09/23/2024 3:00 PM CDT Ancillary Procedure [facility] Cardiology at [address] [place] [address] Coronary artery disease involving [place] coronary artery of [place] heart without angina pectoris; Essential hypertension; LBBB (left bundle branch block); Pulmonary hypertension (HCC) 09/23/2024 Results Follow-Up [facility] Cardiology at [address] [place] [address] Checo Allen MD Transthoracic Echo (TTE) Complete W Doppler/CF 09/13/2024 8:52 AM CDT - 09/13/2024 11:59 PM CDT Hospital Encounter [facility] - Breast Imaging [address] [place] [address] [address] [place] [address] Abnormal mammogram Discharge Disposition: Discharge to home or self care 09/13/2024 8:51 AM CDT - 09/13/2024 11:59 PM CDT Hospital Encounter [facility] - Breast Imaging [address] [place] [address] [address] [place] [address] Abnormal mammogram Discharge Disposition: Discharge to home or self care 09/06/2024 5:21 PM CDT - 09/06/2024 11:59 PM CDT Hospital Encounter [facility]) [address] [place] [address] Discharge Disposition: Discharge to home or self care 09/06/2024 Orders Only [facility]iology [address] [facility] [address] [place] [phone] Cheryle Bowling MD 09/03/2024 11:30 AM CDT Office Visit [facility] Cardiology at [address] [place] [address] Checo Allen MD Coronary artery disease involving [place] coronary artery of [place] heart without angina pectoris (Primary Dx); Essential hypertension; Hyperlipidemia LDL goal <70; LBBB (left bundle branch block); Former smoker; Pulmonary hypertension (HCC) 08/25/2024 12:05 AM CDT - 08/25/2024 11:59 PM CDT Hospital Encounter [facility]) [address] [place] [address] Discharge Disposition: Discharge to home or self care 08/25/2024 - 08/25/2024 11:59 PM CDT Hospital Encounter [facility]) [address] [place] [address] Discharge Disposition: Discharge to home or self [...] on file Legal Sex Female 2:03 AM CYBER SECURITY SPECIALIST Gender Identity Female 09/29/2020 9:57 AM CDT [...] 11:26 AM CDT Height 170.2 cm (5' 7) 09/03/2024 11:26 AM CDT Body Mass Index [...] 1:52 PM CDT Coronary artery disease involving [place] coronary artery of [place] heart without angina pectoris Essential hypertension LBBB [...] PM CDT Narrative 09/23/2024 4:44 PM CDT [facility], [address], [place] [address] P:[phone] P:[phone] Echocardiographic Report Patient Name: ALLYSON STAHL C [...] FINDINGS: Interpretation Site: Exam was interpreted at [facility]. Left Ventricle: Normal left ventricular systolic function. [...] Procedure Note Checo Allen MD - 09/23/2024 [facility] Cardiology [address] [facility], [address], [place] [address] P:[phone] P:[phone] Echocardiographic Report Patient Name: ALLYSON STAHL C [...] FINDINGS: Interpretation Site: Exam was interpreted at [facility]. Left Ventricle: Normal left ventricular systolic function. [...] the LEFT breast was performed by the director of midwifery/staff midwife. BREAST PARENCHYMAL COMPOSITION: The breasts are heterogenously [...] the LEFT breast was performed by the director of midwifery/staff midwife. BREAST PARENCHYMAL COMPOSITION: The breasts are heterogenously [...] the LEFT breast was performed by the director of midwifery/staff midwife. BREAST PARENCHYMAL COMPOSITION: The breasts are heterogenously [...] the LEFT breast was performed by the director of midwifery/staff midwife. BREAST PARENCHYMAL COMPOSITION: The breasts are heterogenously [...] images may or may not represent the [place] source data set and thus may contain [...] OF OUTSIDE IMAGING FACILITY PERFORMING OUTSIDE IMAGING: [place], [place] EXAM(S) REVIEWED: 1. BILATERAL DIAGNOSTIC MAMMOGRAM [...] OF OUTSIDE IMAGING FACILITY PERFORMING OUTSIDE IMAGING: [place], [place] EXAM(S) REVIEWED: 1. BILATERAL DIAGNOSTIC MAMMOGRAM [...] images may or may not represent the [place] source data set and thus may contain [...] only and have not been reviewed by [facility]. There will be no report generated by a [facility] Radiologist. Narrative [facility]MO[facility] - 09/06/2024 2:49 PM CDT EXAMINATION: Images For Reference Purposes Only us Provider Transcribed Order IMG MAMMO PROCEDURES Final Result Performing Organization Address [facility] Co de Phone Number [facility] * Breast Imaging Diagnostic Outside Reference (08/25/2024 12:00 AM CDT) Impressions [facility] - 09/06/2024 2:42 PM CDT These images are for Reference purposes only and have not been reviewed by [facility]. There will be no report generated by a [facility] Radiologist. Narrative [facility] - 09/06/2024 2:42 PM CDT EXAMINATION: Images For Reference Purposes Only us Provider Transcribed Order IMG MAMMO PROCEDURES Final Result [facility] from Last 3 Months Insurance UHC MEDICARE ADVANTAGE UHC MEDICARE ADVANTAGE Care Teams Crossing Guard Relationship Specialty Start Date End Date Felix Powell MD [address] [facility] [address] [facility] [address] INTER[address] MEDICINE [place] [phone] PCP - General 05/24/13
--- OUTSIDE RECORDS SUMMARY | 2024-10-09 15:43 | XMS_ITS | Continuity of Care Document ---
Author Organization [facility] Address [address] [facility] [address] [facility] [address] [place] [address] Phone Care Team Providers Care Streets And Buildings Decorator Name Role Phone Bola TIDWELL, MARIO, Jimi [...] Diagnoses Date Provider Providers Copied on Encounter [facility] [place] [address], [place], [place], [id number], tel:[phone] [place] No Information [address] [facility] [facility] [address], [place], [place], [id number], [place] tel:[phone] [place] No Information 4 Klahn Jimi. . Referring Provider: Christen Orta [facility] [address], [place], [address]. tel:[phone] [facility], [address], [place], [place], [address], [place] tel:[phone] [place] No Information 4 Klahn Jimi. . Referring Provider: Christen Orta [facility] [address], [place], [address]. tel:[phone] [facility] [address], [place], [place], [id number], [place] tel:[phone] [place] No Information 4 Klahn Jimi. . Referring Provider: Tasneem Orta [facility] [address], [place], [address]. tel:[phone] [facility] [address], [place], [place], [address], [place] tel:[phone] [place] No Information 4 Klahn Jimi. . Referring Provider: Tasneem Orta [facility] [address], [place], [address]. tel:[phone] [facility] [address], [place], [place], [address], [place] tel:[phone] [place] No Information 3 Klahn Jimi. . Referring Provider: Tasneem Orta [facility] [address], [place], [address]. tel:[phone] [facility], [place], [address], [place] tel:[phone] [place] No Information 3 Modglin Alex. . Referring Provider: Christen Orta[address], [place], [address]. tel:[phone], [place], [place], [address], tel:[phone] [place] No Information Dec-0 - 3 Klahn Jimi. . Referring Provider: Felix Powell [address] [place] [address] [address], [place], [address]. tel:[phone] [address], [place], [place], [address], [place] tel:[phone] [place] No Information Dec-0 3 Klahn Jimi. . Referring Provider: Felix Powell [address] [place] [address] [address], [place], [address]. tel:[phone], [place], [id number], [place] tel:[phone] [place] No Information Sep-1 3 Klahn Jimi. . Referring Provider: Felix Powell [address] [place] [address] [address], [place], [address]. tel:[phone], [place], [place], [address], tel:[phone] [place] No Information Sep-0 3 Klahn Jimi. . Referring Provider: Felix Powell [address] [place] [address] [address], [place], [address]. tel:[phone], [place], [address], [place] tel:[phone] [place] No Information Dec-2 3 Klahn Jimi. . Referring Provider: Christen Orta[address] [place] [address] [address], [place], [address]. tel:[phone] Family History Family Member Type Diagnosis Age At Onset No Information Payers Payer name Insurance type Covered democrat ID Roland rust(s) [employer] Medicare Replacement CI [id number] Social History Type Description Quantity Date Captured [...]
--- OUTSIDE RECORDS SUMMARY | 2024-10-09 15:43 | XMS_ITS | Encounter Summary ---
Author Organization [facility] Healthcare Address [address] [place] [address] Care Team Providers Care Web Master Name Role Phone Felix Powell MD Primary Care Provider [phone] Reason for Visit * Diagnostic Imaging (Routine) - Pending Review Specialty Diagnoses / Procedures Referred By Danyell stinson Referred To Contact Procedures Breast Imaging US Outside Reference Transcribed Order, Provider Referral ID Status Reason Start Date Expiration Date V isits Requested Visits Authorized [id number] Pending Review 09/06/2024 10/06/2025 1 1 Encounter Details Date Type Department Care Team (Late st Contact Info) Description 03/01/2020 Hospital Encounter [facility] [address] [place], [place] [id number] Social History Tobacco Use Types Packs/Day Years Used Date Smoking Tobacco: Former Smokeless Tobacco: Never Alcohol Use Standard Drinks/Week Comments No 0 (1 standard drink = 0.6 oz pur e alcohol) Comments Unknown Sex and Gender Information Value Date Recorded Sex Assigned at Not on file Legal Sex Female 2:03 AM JUVENILE OFFICER Gender Identity Female 09/29/2020 9:57 AM [...] only and have not been reviewed by [facility]. There will be no report generated by a [facility] Radiologist. Narrative [facility] - 09/06/2024 2:42 PM CDT EXAMINATION: Images For Reference Purposes Only us Provider Transcribed Order IMG MAMMO PROCEDURES Final Result [facility] documented in this encounter Visit Diagnoses Not on filedocumented in this encounter Care Teams Web Master Relationship Specialty Start Date End Date Felix Powell MD [address] [facility] [address] [place] [address] PCP - General 05/24/13 documented as of this encounter
--- OUTSIDE RECORDS SUMMARY | 2024-10-09 15:43 | XMS_ITS | Encounter Summary ---
Author Organization [facility] Healthcare Address [address] [place] [address] Care Team Providers Care Retail Account Manager Name Role Phone Felix Powell MD Primary Care Provider [phone] Encounter Details Date Type Department Care Team (Latest Contact Info) Description 09/23/2024 Results Follow-Up [facility] Medical Group Cardiology at [address] [place] [address] Paulo Veloz MD [address] [place] [address] Transthoracic Echo (TTE) Complete W Doppler/CF Social History Tobacco Use Types Packs/Day Years Used Date Smoking Tobacco: Former Smokeless Tobacco: Never Alcohol Use Standard Drinks/Week Comments No 0 (1 standard drink = 0.6 oz pur e alcohol) Comments Unknown Sex and Gender Information Value Date Recorded Sex Assigned at Not on file Legal Sex Female 2:03 AM CHAINER Gender Identity Female 09/29/2020 9:57 AM CDT Sexual Orientation Straight 09/29/2020 9: 57 AM CDT documented as of this encounter Plan of Treatment Not on file documented as of this encounter Visit Diagnoses Not on filedocumented in this encounter Care Teams Retail Account Manager Relationship Specialty Start Date End Date Felix Powell MD [address] [facility] [address] [place] [address] PCP - General 05/24/13 documented as of this encounter
--- OUTSIDE RECORDS SUMMARY | 2024-10-09 15:43 | XMS_ITS | Referral Summary ---
Author Organization [facility] [address] Address [address] [place] [address] Care Team Providers Care Electroplater Name Role Phone Felix Powell MD Primary Care Provider [phone] Encounters Date Type Department Care Team Description 09/23/2024 Results Follow-Up [facility] Medical Group Cardiology at [address] [place] [phone] Checo Allen MD Transthoracic Echo (TTE) Complete W Doppler/CF 09/23/2024 3:00 PM CDT Ancillary Procedure [facility] Cardiology at [address] [place] [phone] 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; Essential hypertension; LBBB (left bundle branch block); Pulmonary hypertension (HCC) 09/13/2024 8:51 AM CDT - 09/13/2024 11:59 PM CDT Hospital Encounter [facility] - Breast Imaging [address] [facility] [address] [place] [address] Abnormal mammogram Discharge Disposition: Discharge to home or self care 09/13/2024 8:52 AM CDT - 09/13/2024 11:59 PM CDT Hospital Encounter [facility] - Breast Imaging [address] [facility] [address] [place] [address] Abnormal mammogram Discharge Disposition: Discharge to home or self care 09/06/2024 5:21 PM CDT - 09/06/2024 11:59 PM CDT Hospital Encounter [facility] [address] [place] [address] Discharge Disposition: Discharge to home or self care 09/06/2024 Orders Only [facility] Medical [facility] Cardiology [address] [place] [phone] ProviderCheryle MD 09/03/2024 11:30 AM CDT Office Visit [facility] Medical Group Cardiology at [address] [place] [phone] Checo Allen MD 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 (Primary Dx); Essential hypertension; Hyperlipidemia LDL goal <70; LBBB (left bundle branch block); Former smoker; Pulmonary hypertension (HCC) 08/25/2024 12:05 AM CDT - 08/25/2024 11:59 PM CDT Hospital Encounter [facility] Radiology [facility]) [address] [place] [address] Discharge Disposition: Discharge to home or self care 08/25/2024 - 08/25/2024 11:59 PM CDT Hospital Encounter [facility] ([facility]) [address] [place] [address] Discharge Disposition: Discharge to home or self [...] 1 tablet (137 mcg total) by mouth manager facility before breakfast Active buPROPion XL (WELLBUTRIN XL) [...] mg SL tabletIndications :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 Place 1 tablet [...] smoker 02/23/2021 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lving w[place]ita coronary artery of [place] heart without angina pectoris 06/19/2017 History of [...] on file Legal Sex Female 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, [address], [place] [address] P:[phone] P:[phone] Echocardiographic Report Patient Name: ALLYSON STAHL C [...] FINDINGS: Interpretation Site: Exam was interpreted at [facility]. Left Ventricle: Normal left ventricular systolic [...] Procedure Note Checo Allen MD - 09/23/2024 [facility] Medical [facility] Cardiology [address] [facility], [address], [place] [address] P:[phone] P:[phone] Echocardiographic Report Patient Name: ALLYSON STAHL C [...] FINDINGS: Interpretation Site: Exam was interpreted at [facility]. Left Ventricle: Normal left ventricular systolic [...] the LEFT breast was performed by the home energy auditor. BREAST PARENCHYMAL COMPOSITION: The breasts are heterogenously [...] the LEFT breast was performed by the home energy auditor. BREAST PARENCHYMAL COMPOSITION: The breasts are heterogenously [...] the LEFT breast was performed by the home energy auditor. BREAST PARENCHYMAL COMPOSITION: The breasts are heterogenously [...] the LEFT breast was performed by the home energy auditor. BREAST PARENCHYMAL COMPOSITION: The breasts are heterogenously [...] images may or may not represent the [place]ichita source data set and thus may contain [...] OF OUTSIDE IMAGING FACILITY PERFORMING OUTSIDE IMAGING: [place], [place] EXAM(S) REVIEWED: 1. BILATERAL DIAGNOSTIC MAMMOGRAM [...] OF OUTSIDE IMAGING FACILITY PERFORMING OUTSIDE IMAGING: [place], [place] EXAM(S) REVIEWED: 1. BILATERAL DIAGNOSTIC MAMMOGRAM [...] images may or may not represent the [place] source data set and thus may contain [...] MAMMO PROCEDURES Final Result Performing Organization Address City/[facility]/ZIP Co de Phone Number [facility] * [...] PROCEDURES Final Result Performing Organization Address [facility]/[place]UST Co de Phone Number [facility] from Last 3 Months Insurance ON LICENSE OF [facility] MEDICARE ADVANTAGE [facility] MEDICARE Address: [facility] [address] [place] [address] [facility] MEDICARE ADVANTAGE [facility] MEDICARE Address: [facility] [address] [place] [address] Care Teams Electroplater Relationship Specialty Start Date End Date Felix Powell MD [address] [facility] [address] [place] [address] PCP - General 05/24/13
--- OUTSIDE RECORDS SUMMARY | 2024-10-09 15:43 | XMS_ITS | Encounter Summary ---
Author Organization [facility] Healthcare Address [address] [place] [address] Care Team Providers Care Weatherization Operations Manager Name Role Phone Felix Powell MD Primary Care Provider [phone] Reason for Visit * Diagnostic Imaging (Routine) - Pending Review Specialty Diagnoses / Procedures Referred By Danyell stinson Referred To Contact Procedures Breast Imaging Diagnostic Outside Reference Transcribed Order, Provider Referral ID Status Reason Start Date Expiration Date V isits Requested Visits Authorized [id number] Pending Review 09/06/2024 10/06/2025 1 1 Encounter Details Date Type Department Care Team (Late st Contact Info) Description 06/11/2019 Hospital Encounter [facility] Radiology [facility] [address] [place], [place] [phone] Social History Tobacco Use Types Packs/Day Years Used Date Smoking Tobacco: Former Smokeless Tobacco: Never Alcohol Use Standard Drinks/Week Comments No 0 (1 standard drink = 0.6 oz pur e alcohol) Comments Unknown Sex and Gender Information Value Date Recorded Sex Assigned at Not on file Legal Sex Female 2:03 AM TIME SIGNAL WIRER Gender Identity Female 09/29/2020 9:57 AM CDT Sexual Orientation Straight 09/29/2020 9: 57 AM CDT documented as of this encounter Plan of Treatment Not on file documented as of this encounter Procedures Procedure Name Priority Date/Time Associated Diagnosis Comments BREAST IMAGING MG DIAGNOSTIC OUTSIDE REFERENCE Routine 06/11/2019 12:00 AM TIME SIGNAL WIRER documented in this encounter Results * Breast Imaging Diagnostic Outside Reference (06/11/2019 12:00 AM TIME SIGNAL WIRER) Impressions [facility] - 09/06/2024 2:42 PM CDT These images are for Reference purposes only and have not been reviewed by [facility]. There will be no report generated by a [facility] Radiologist. Narrative [facility] - 09/06/2024 2:42 PM CDT EXAMINATION: Images For Reference Purposes Only us Provider Transcribed Order IMG MAMMO PROCEDURES Final Result [facility] documented in this encounter Visit Diagnoses Not on filedocumented in this encounter Care Teams Weatherization Operations Manager Relationship Specialty Start Date End Date Felix Powell MD [address] [facility] [address] [place] [address] PCP - General 05/24/13 documented as of this encounter
[2024-10-09] MEDS: LACTATED RINGERS 1,000 ML 999 ML IV CONT ×2 (16:13→16:29)
[2024-10-09 16:21] LABS: Basophils Absolute Auto 0.1 K/mm3 (0.0-0.1); Basophils Percent Auto 0.8 % (0.2-1.2); Eosinophils Absolute Auto 0.1 K/mm3 (0-0.3); Eosinophils Percent Auto 1.4 % (0-4.4); Hematocrit 42.3 % (37.0-47.0); Hemoglobin 13.4 g/dL (12.0-15.0); Immature Granulocyte Absolute 0.05 K/mm3 (0.00-0.031); Immature Granulocyte Percent A 0.6 % (0-0.5); Lymphocytes Absolute Auto 1.39 K/mm3 (0.9-3.2); Lymphocytes Percent Auto 15.8 % (18.3-44.2); Mean Corpuscular HGB Conc 31.7 g/dl (32-36); Mean Corpuscular Hemoglobin 27.5 pg (26-34); Mean Corpuscular Volume 86.9 fl (80-100); Mean Platelet Volume 9.8 fl (7.4-10.4); Monocytes Absolute Auto 0.6 K/mm3 (0.1-0.6); Monocytes Percent Auto 6.3 % (2.6-8.5); Neutrophils Absolute Auto 6.6 K/mm3 (1.3-6.7); Neutrophils Percent Auto 75.1 % (45.5-73.1); Platelet Count Result 201 k/mm3 (150-375); Red Blood Count 4.87 M/mm3 (4.2-5.4); Red Cell Distribution Width 14.7 % (11.5-14.5); White Blood Count 8.8 K/mm3 (4.5-10.0)
--- OUTSIDE RECORDS SUMMARY | 2024-10-09 16:21 | XMS_ITS | Encounter Summary ---
Author Organization [facility] Healthcare Address [address] [place] [address] Care Team Providers Care Tool Smith Name Role Phone Felix Powell MD Primary Care Provider [phone] Reason for Visit * Diagnostic Imaging (Routine) - Pending Review Specialty Diagnoses / Procedures Referred By Danyell stinson Referred To Contact Procedures Breast Imaging Diagnostic Outside Reference Transcribed Order, Provider Referral ID Status Reason Start Date Expiration Date V isits Requested Visits Authorized [id number] Pending Review 09/06/2024 10/06/2025 1 1 Encounter Details Date Type Department Care Team (Late st Contact Info) Description 01/27/2019 Hospital Encounter [facility] Radiology [facility] [address] [place], [place] [id number] Social History Tobacco Use Types Packs/Day Years Used Date Smoking Tobacco: Former Smokeless Tobacco: Never Alcohol Use Standard Drinks/Week Comments No 0 (1 standard drink = 0.6 oz pur e alcohol) Comments Unknown Sex and Gender Information Value Date Recorded Sex Assigned at Not on file 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
--- OUTSIDE RECORDS SUMMARY | 2024-10-09 16:21 | XMS_ITS | Encounter Summary ---
Author Organization [facility] Healthcare Address [address] [place] [address] Care Team Providers Care Yard Loader Operator Name Role Phone Felix Powell MD Primary Care Provider [phone] Encounter Details Date Type Department Care Team (Latest Contact Info) Description 09/23/2024 Results Follow-Up [facility] Medical Group Cardiology at [address] [place] [address] Paulo Veloz MD [address] [place] [address] Transthoracic Echo (TTE) Complete W Doppler/CF Social History Tobacco Use Types Packs/Day Years Used Date Smoking Tobacco: Former Smokeless Tobacco: Never Alcohol Use Standard Drinks/Week Comments No 0 (1 standard drink = 0.6 oz pur e alcohol) Comments Unknown Sex and Gender Information Value Date Recorded Sex Assigned at Not on file Legal Sex Female 2:03 AM DOUBLE SURFACE OPERATOR Gender Identity Female 09/29/2020 9:57 AM CDT Sexual Orientation Straight 09/29/2020 9: 57 AM CDT documented as of this encounter Plan of Treatment Not on file documented as of this encounter Visit Diagnoses Not on filedocumented in this encounter Care Teams Yard Loader Operator Relationship Specialty Start Date End Date Felix Powell MD [address] [facility] [address] [place] [address] PCP - General 05/24/13 documented as of this encounter
--- OUTSIDE RECORDS SUMMARY | 2024-10-09 16:21 | XMS_ITS | Encounter Summary ---
Author Organization [facility] Healthcare Address [address] [place] [address] Care Team Providers Care Learning And Development Analyst Name Role Phone Felix Powell MD Primary Care Provider [phone] Reason for Visit * Diagnostic Imaging (Routine) - Pending Review Specialty Diagnoses / Procedures Referred By Danyell stinson Referred To Contact Procedures Breast Imaging US Outside Reference Transcribed Order, Provider Referral ID Status Reason Start Date Expiration Date V isits Requested Visits Authorized [id number] Pending Review 09/06/2024 10/06/2025 1 1 Encounter Details Date Type Department Care Team (Late st Contact Info) Description 03/01/[address] [facility] [address] [place], [place] [phone] Social History Tobacco Use Types Packs/Day Years Used Date Smoking Tobacco: Former Smokeless Tobacco: Never Alcohol Use Standard Drinks/Week Comments No 0 (1 standard drink = 0.6 oz pur e alcohol) Comments Unknown Sex and Gender Information Value Date Recorded Sex Assigned at Not on file Legal Sex Female 2:03 AM ETL MANAGER Gender Identity Female 09/29/2020 9:57 AM [...] have not been reviewed by [facility]. There will be no report generated by a [facility] Radiologist. Narrative [facility] - 09/06/2024 2:42 PM CDT EXAMINATION: Images For Reference Purposes Only us Provider Transcribed Order IMG MAMMO PROCEDURES Final Result [facility] documented in this encounter Visit Diagnoses Not on filedocumented in this encounter Care Teams Learning And Development Analyst Relationship Specialty Start Date End Date Felix Powell MD [address] [facility] [address] [place] [address] PCP - General 05/24/13 documented as of this encounter
--- OUTSIDE RECORDS SUMMARY | 2024-10-09 16:21 | XMS_ITS | Encounter Summary ---
Author Organization [facility] Healthcare Address [address] [place] [address] Care Team Providers Care Painter Airbrush Name Role Phone Felix Powell MD Primary Care Provider Reason for Visit * Diagnostic Imaging (Routine) - Pending Review Specialty Diagnoses / Procedures Referred By Danyell stinson Referred To Contact Procedures Breast Imaging Diagnostic Outside Reference Transcribed Order, Provider Referral ID Status Reason Start Date Expiration Date V isits Requested Visits Authorized [id number] Pending Review 09/06/2024 10/06/2025 1 1 Encounter Details Date Type Department Care Team (Late st Contact Info) Description 06/11/2019 Hospital Encounter [facility] [address] [place], [place] [phone] Social History Tobacco Use Types Packs/Day Years Used Date Smoking Tobacco: Former Smokeless Tobacco: Never Alcohol Use Standard Drinks/Week Comments No 0 (1 standard drink = 0.6 oz pur e alcohol) Comments Unknown Sex and Gender Information Value Date Recorded Sex Assigned at Not on file Legal Sex Female 2:03 AM GATEKEEPER Gender Identity Female 09/29/2020 9:57 AM CDT Sexual Orientation Straight 09/29/2020 9: 57 AM CDT documented as of this encounter Plan of Treatment Not on file documented as of this encounter Procedures Procedure Name Priority Date/Time Associated Diagnosis Comments BREAST IMAGING MG DIAGNOSTIC OUTSIDE REFERENCE Routine 06/11/2019 12:00 AM GATEKEEPER documented in this encounter Results * Breast Imaging Diagnostic Outside Reference (06/11/2019 12:00 AM GATEKEEPER) Impressions [facility] - 09/06/2024 2:42 PM CDT These images are for Reference purposes only and have not been reviewed by [facility]. There will be no report generated by a [facility] Radiologist. Narrative [facility]MO[facility] - 09/06/2024 2:42 PM CDT EXAMINATION: Images For Reference Purposes Only us Provider Transcribed Order IMG MAMMO PROCEDURES Final Result [facility] documented in this encounter Visit Diagnoses Not on filedocumented in this encounter Care Teams Painter Airbrush Relationship Specialty Start Date End Date Felix Powell MD [address] [facility] [address] [place] [address] PCP - General 05/24/13 documented as of this encounter
--- OUTSIDE RECORDS SUMMARY | 2024-10-09 16:21 | XMS_ITS | Encounter Summary ---
Author Organization [facility] Healthcare Address [address] [place] [address] Care Team Providers Care Veneer Manufacturer Name Role Phone Felix Powell MD Primary Care Provider Reason for Visit * Diagnostic Imaging (Routine) - Pending Review Specialty Diagnoses / Procedures Referred By Danyell stinson Referred To Contact Procedures Breast Imaging Diagnostic Outside Reference Transcribed Order, Provider Referral ID Status Reason Start Date Expiration Date V isits Requested Visits Authorized [id number] Pending Review 09/06/2024 10/06/2025 1 1 Encounter Details Date Type Department Care Team (Late st Contact Info) Description 02/29/2020 Hospital Encounter [facility] [address] [place], [place] [phone] Social History Tobacco Use Types Packs/Day Years Used Date Smoking Tobacco: Former Smokeless Tobacco: Never Alcohol Use Standard Drinks/Week Comments No 0 (1 standard drink = 0.6 oz pur e alcohol) Comments Unknown Sex and Gender Information Value Date Recorded Sex Assigned at Not on file Legal Sex Female 2:03 AM LEAN CONSULTANT Gender Identity Female 09/29/2020 9:57 AM CDT [...] on filedocumented in this encounter Care Teams Veneer Manufacturer Relationship Specialty Start Date End Date Felix Powell MD [address] [facility] [address] [place] [address] PCP - General 05/24/13 documented as of this encounter
--- OUTSIDE RECORDS SUMMARY | 2024-10-09 16:21 | XMS_ITS | Referral Summary ---
Author Organization [facility] [address] Address [address] [place] [address] Care Team Providers Care Materials Planner Name Role Phone Felix Powell MD Primary Care Provider [phone] Encounters Date Type Department Care Team Description 09/23/2024 Results Follow-Up [facility] Cardiology at [address] [place] [phone] Checo Allen MD Transthoracic Echo (TTE) Complete W Doppler/CF 09/23/2024 3:00 PM CDT Ancillary Procedure [facility] Cardiology at [address] [place] [phone] Coronary artery disease involving kwethluk coronary artery of kwethluk heart without angina pectoris; Essential hypertension; LBBB (left bundle branch block); Pulmonary hypertension (HCC) 09/13/2024 8:51 AM CDT - 09/13/2024 11:59 PM CDT Hospital Encounter [facility] - Breast Imaging [address] [facility] [address] 8 [place] [address] Abnormal mammogram Discharge Disposition: Discharge to home or self care 09/13/2024 8:52 AM CDT - 09/13/2024 11:59 PM CDT Hospital Encounter [facility] - Breast Imaging [address] [facility] [address] 8 [place] [address] Abnormal mammogram Discharge Disposition: Discharge to home or self care 09/06/2024 5:21 PM CDT - 09/06/2024 11:59 PM CDT Hospital Encounter [facility] [address] [place] [address] Discharge Disposition: Discharge to home or self care 09/06/2024 Orders Only [facility] Cardiology [address] [place] [phone] ProviderCheryle MD 09/03/2024 11:30 AM CDT Office Visit [facility] Cardiology at [address] [place] [phone] Checo Allen MD Coronary artery disease involving kwethluk coronary artery of kwethluk heart without angina pectoris (Primary Dx); Essential hypertension; Hyperlipidemia LDL goal <70; LBBB (left bundle branch block); Former smoker; Pulmonary hypertension (HCC) 08/25/2024 12:05 AM CDT - 08/25/2024 11:59 PM CDT Hospital Encounter [facility]) [address] [place] [address] Discharge Disposition: Discharge to home or self care 08/25/2024 - 08/25/2024 11:59 PM CDT Hospital Encounter [facility] ([facility]) [address] [place] [address] Discharge Disposition: Discharge to home or self [...] 1 tablet (137 mcg total) by mouth byproducts operator before breakfast Active buPROPion XL (WELLBUTRIN [...] mg SL tabletIndications :Coronary artery disease involving kwethluk coronary artery of kwethluk heart without angina pectoris Place 1 tablet [...] smoker 02/23/2021 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lving kwethluk coronary artery of kwethl[place] heart without angina pectoris 06/19/2017 History of [...] on file Legal Sex Female 2: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 Left Ventricle: Normal left ventricular systolic function. [...] Procedure Note Checo Allen MD - 09/23/2024 [facility] Cardiology [address], [address], [place] [address] P:[phone] P:[phone] Echocardiographic Report Patient Name: ALLYSON STAHL C : 1945 Study Date: 09/23/2024 1:52:45 PM Gender: F Tech: Location: EDW Ref Provider: CHECO ALELN Height(Cm): 170 BSA: 1.91 Weight(Kg): 77.6 Heart [...] FINDINGS: Interpretation Site: Exam was interpreted at [facility]. Left Ventricle: Normal left ventricular systolic function. [...] right breast mammogram. Electronically signed by: Michelle Ryaa M.D. Narrative 09/13/2024 12:24 PM CDT EXAMINATION: [...] the LEFT breast was performed by the curtain mender. BREAST PARENCHYMAL COMPOSITION: The breasts are heterogenously [...] the LEFT breast was performed by the curtain mender. BREAST PARENCHYMAL COMPOSITION: The breasts are heterogenously [...] with right breast mammogram. Electronically signed by: iMchelle Raya M.D. Narrative 09/13/2024 12:24 PM CDT [...] the LEFT breast was performed by the curtain mender. BREAST PARENCHYMAL COMPOSITION: The breasts are heterogenously [...] the LEFT breast was performed by the curtain mender. BREAST PARENCHYMAL COMPOSITION: The breasts are heterogenously [...] images may or may not represent the kwethluk source data set and thus may contain [...] OF OUTSIDE IMAGING FACILITY PERFORMING OUTSIDE IMAGING: [place], [place] EXAM(S) REVIEWED: 1. BILATERAL DIAGNOSTIC MAMMOGRAM [...] OF OUTSIDE IMAGING FACILITY PERFORMING OUTSIDE IMAGING: [place], [place] EXAM(S) REVIEWED: 1. BILATERAL DIAGNOSTIC MAMMOGRAM [...] images may or may not represent the kwethluk source data set and thus may contain [...] and have not been reviewed by [facility]. There will be no report generated by a [facility] Radiologist. Narrative [facility]MO[facility] - 09/06/2024 2:49 PM CDT EXAMINATION: Images For Reference Purposes Only us Provider Transcribed Order IMG MAMMO PROCEDURES Final Result Performing Organization Address City/[facility]/ZIP Co de Phone Number [facility] * Breast Imaging Diagnostic Outside Reference (08/25/2024 12:00 AM CDT) Impressions [facility] - 09/06/2024 2:42 PM CDT These images are for Reference purposes only and have not been reviewed by [facility]. There will be no report generated by a [facility] Radiologist. Narrative [facility] - 09/06/2024 2:42 PM CDT EXAMINATION: Images For Reference Purposes Only us Provider Transcribed Order IMG MAMMO PROCEDURES Final Result Performing Organization Address [facility] Co de Phone Number [facility] from Last 3 Months Insurance [facility] MEDICARE [facility] Address: [facility] [address] [place] [address] [facility] MEDICARE AD[facility]ANTAGE [facility] MEDICARE Address: [facility] [address] [place] [address] Care Teams Materials Planner Relationship Specialty Start Date End Date Felix Powell MD [address] [facility] [address] [place] [address] PCP - General 05/24/13
--- OUTSIDE RECORDS SUMMARY | 2024-10-09 16:21 | XMS_ITS | Encounter Summary ---
Author Organization [facility] Healthcare Address [address] [place] [address] Care Team Providers Care Termite Inspector Name Role Phone Felix Powell MD Primary Care Provider [phone] Reason for Visit * Diagnostic Imaging (Routine) - Pending Review Specialty Diagnoses / Procedures Referred By Danyell stinson Referred To Contact Procedures Breast Imaging Screening Outside Reference Transcribed Order, Provider Referral ID Status Reason Start Date Expiration Date V isits Requested Visits Authorized [id number] Pending Review 09/06/2024 10/06/2025 1 1 Encounter Details Date Type Department Care Team (Late st Contact Info) Description 01/18/2019 Hospital Encounter [facility]) [address] [place], [place] [id number] Social History Tobacco Use Types Packs/Day Years Used Date Smoking Tobacco: Former Smokeless Tobacco: Never Alcohol Use Standard Drinks/Week Comments No 0 (1 standard drink = 0.6 oz pur e alcohol) Comments Unknown Sex and Gender Information Value Date Recorded Sex Assigned at Not on file 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 There will be no report generated by a [facility] Radiologist. Narrative [facility] - 09/06/2024 2:42 PM CDT EXAMINATION: Images For Reference Purposes Only us Provider Transcribed Order IMG MAMMO PROCEDURES Final Result [facility] documented in this encounter Visit Diagnoses Not on filedocumented in this encounter Care Teams Termite Inspector Relationship Specialty Start Date End Date Felix Powell MD [address] [facility] [address] [place] [address] PCP - General 05/24/13 documented as of this encounter
--- OUTSIDE RECORDS SUMMARY | 2024-10-09 16:21 | XMS_ITS | Clinical Summary ---
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 Place 1 tablet [...] smoker 02/23/2021 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 06/19/2017 History of coronary artery stent placement 06/19 Encounters Date Type Department Care Team Description 09/23/2024 3:00 PM CDT Ancillary Procedure [facility] Cardiology at [address] [place] [address] 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; Essential hypertension; LBBB (left bundle branch block); Pulmonary hypertension (HCC) 09/23/2024 Results Follow-Up [facility] Cardiology at [address] [place] [address] Checo Allen MD Transthoracic Echo (TTE) Complete W Doppler/CF 09/13/2024 8:52 AM CDT - 09/13/2024 11:59 PM CDT Hospital Encounter [facility] - Breast Imaging [address] [place] [address] Floor 8 [place] [address] Abnormal mammogram Discharge Disposition: Discharge to home or self care 09/13/2024 8:51 AM CDT - 09/13/2024 11:59 PM CDT Hospital Encounter [facility] - Breast Imaging [address] [place] [address] 8 [place] [address] Abnormal mammogram Discharge Disposition: Discharge to home or self care 09/06/2024 5:21 PM CDT - 09/06/2024 11:59 PM CDT Hospital Encounter [facility]) [address] [place] [address] Discharge Disposition: Discharge to home or self care 09/06/2024 Orders Only [facility] Cardiology [address] [facility] [address] [place] [address] Cheryle Bowling MD 09/03/2024 11:30 AM CDT Office Visit [facility] Cardiology at [address] [place] [address] Checo lAlen MD 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 (Primary Dx); Essential hypertension; Hyperlipidemia LDL goal <70; LBBB (left bundle branch block); Former smoker; Pulmonary hypertension (HCC) 08/25/2024 12:05 AM CDT - 08/25/2024 11:59 PM CDT Hospital Encounter [facility]) [address] [place] [address] Discharge Disposition: Discharge to home or self care 08/25/2024 - 08/25/2024 11:59 PM CDT Hospital Encounter [facility]) [address] [place] [address] Discharge Disposition: Discharge to home or self [...] on file 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 Left Ventricle: Normal left ventricular systolic function. [...] Procedure Note Checo Allen MD - 09/23/2024 [facility] Cardiology [address] [facility], [address], [place] [address] P:[phone] P:[phone] Echocardiographic Report Patient Name: ALLYSON STAHL C [...] Site: Exam was interpreted at [facility]. Left Ventricle: Normal left ventricular systolic function. [...] the LEFT breast was performed by the tobacco drummer. BREAST PARENCHYMAL COMPOSITION: The breasts are heterogenously [...] the LEFT breast was performed by the tobacco drummer. BREAST PARENCHYMAL COMPOSITION: The breasts are heterogenously [...] the LEFT breast was performed by the tobacco drummer. BREAST PARENCHYMAL COMPOSITION: The breasts are heterogenously [...] the LEFT breast was performed by the tobacco drummer. BREAST PARENCHYMAL COMPOSITION: The breasts are heterogenously [...] images may or may not represent the rincon source data set and thus may contain [...] OF OUTSIDE IMAGING FACILITY PERFORMING OUTSIDE IMAGING: [place], [place] EXAM(S) REVIEWED: 1. BILATERAL DIAGNOSTIC MAMMOGRAM [...] OF OUTSIDE IMAGING FACILITY PERFORMING OUTSIDE IMAGING: [place], [place] EXAM(S) REVIEWED: 1. BILATERAL DIAGNOSTIC MAMMOGRAM [...] images may or may not represent the rincon source data set and thus may contain [...] only and have not been reviewed by [facility] Radiology. There will be no report generated by a [facility] Radiologist. Narrative [facility]_MAMMO[facility] - 09/06/2024 2:49 PM CDT EXAMINATION: Images For Reference Purposes Only us Provider Transcribed Order IMG MAMMO PROCEDURES Final Result Performing Organization Address [facility] Co de Phone Number RAD_M[facility]MO[facility] * Breast Imaging Diagnostic Outside Reference (08/25/2024 12:00 AM CDT) Impressions [facility] - 09/06/2024 2:42 PM CDT These images are for Reference purposes only and have not been reviewed by [facility] Radiology. There will be no report generated by a [facility] Radiologist. Narrative [facility]_M[facility]MO[facility] - 09/06/2024 2:42 PM CDT EXAMINATION: Images For Reference Purposes Only us Provider Transcribed Order IMG MAMMO PROCEDURES Final Result [facility]_MAMMO[facility] from Last 3 Months Insurance UHC MEDICARE ADVANTAGE UHC MEDICARE ADVANTAGE Care Teams Assembly Line Brazer Relationship Specialty Start Date End Date Felix Powell MD [address] [facility] [facility] [address] INTERNAL MEDICINE [place] [id number] PCP - General 05/24/13
--- OUTSIDE RECORDS SUMMARY | 2024-10-09 16:21 | XMS_ITS | Encounter Summary ---
Author Organization [facility] Healthcare Address [address] [place] [address] Care Team Providers Care Electric Plater Name Role Phone Felix Powell MD Primary Care Provider [phone] Reason for Visit * Diagnostic Imaging (Routine) - Pending Review Specialty Diagnoses / Procedures Referred By Danyell stinson Referred To Contact Procedures Breast Imaging US Outside Reference Transcribed Order, Provider Referral ID Status Reason Start Date Expiration Date V isits Requested Visits Authorized [id number] Pending Review 09/06/2024 10/06/2025 1 1 Encounter Details Date Type Department Care Team (Late st Contact Info) Description 06/11/2019 12: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 Gender Identity Female 09/29/2020 9:57 AM CDT Sexual Orientation Straight 09/29/2020 9: 57 AM CDT documented as of this encounter Plan of Treatment Not on file documented as of this encounter Procedures Procedure Name Priority Date/Time Associated Diagnosis Comments BREAST IMAGING US OUTSIDE REFERENCE Routine 06/11/2019 12:05 AM RODENT CONTROL WORKER documented in this encounter Results * Breast Imaging US Outside Reference (06/11/2019 12:05 AM RODENT CONTROL WORKER) Impressions [facility]_M[facility]MO[facility] - 09/06/2024 2:42 PM CDT These images are for Reference purposes only and have not been reviewed by [facility]. There will be no report generated by a [facility] Radiologist. Narrative RAD_MAMMO_[facility] - 09/06/2024 2:42 PM CDT EXAMINATION: Images For Reference Purposes Only us Provider Transcribed Order IMG MAMMO PROCEDURES Final Result [facility] documented in this encounter Visit Diagnoses Not on filedocumented in this encounter Care Teams Electric Plater Relationship Specialty Start Date End Date Felix Powell MD [address] [place] [address] [place] [address] PCP - General 05/24/13 documented as of this encounter
--- OUTSIDE RECORDS SUMMARY | 2024-10-09 16:21 | XMS_ITS | Continuity of Care Document ---
Author Organization [facility] Address [address] [place] [address] Phone Care Team Providers Care Pipelayer Name Role Phone Bola TIDWELL, MARIO, Jimi [...] Date Provider Providers Copied on Encounter [facility] [place] [address], [place], [place], [id number], tel:[phone] [place] No Information [address] [facility] [facility] [address], [place], [place], [id number], [place] tel:[phone] [place] No Information 4 Klahn Jimi. . Referring Provider: Christen Orta [facility] [address], [place], [address]. tel:[phone] [facility], [address], [place], [place], [id number], [place] tel:[phone] [place] No Information 4 Klahn Jimi. . Referring Provider: Christen Orta [facility] [address], [place], [address]. tel:[phone] [facility] [address], [place], [place], [id number], [place] tel:[phone] [place] No Information 4 Klahn Jimi. . Referring Provider: Tasneem Orta [facility] [address], [place], [address]. tel:[phone] [facility] [address], [place], [place], [id number], [place] tel:[phone] [place] No Information 4 Klahn Jimi. . Referring Provider: Tasneem Orta [facility] [address], [place], [address]. tel:[phone] [facility] [address], [place], [place], [id number], [place] tel:[phone] [place] No Information 3 Klahn Jimi. . Referring Provider: Tasneem Orta [facility] [address], [place], [address]. tel:[phone] [facility], [place], [place], [id number], [place] tel:[phone] [place] No Information 3 [place] Alex. . Referring Provider: Christen [address], [place], [address]. tel:[phone], [place], [place], [id number], tel:[phone] [place] No Information Dec-0 - 3 Klahn Jimi. . Referring Provider: Felix Powell [address] [place] [address] [address], [place], [address]. tel:[phone] [address], [place], [place], [id number], [place] tel:[phone] [place] No Information Dec-0 3 Klahn Jimi. . Referring Provider: Felix Powell [address] [place] [address] [address], [place], [address]. tel:[phone], [place], [place], [id number], [place] tel:[phone] [place] No Information Sep-1 3 Klahn Jimi. . Referring Provider: Felix Powell [address] [place] [address] [address], [place], [address]. tel:[phone], [place], [place], [id number], tel:[phone] [place] No Information Sep-0 3 Klahn Jimi. . Referring Provider: Felix Powell [address] [place] [address] [address], [place], [address]. tel:[phone], [place], [place], [id number], [place] tel:[phone] [place] No Information Dec-2 3 Klahn Jimi. . Referring Provider: Christen Orta[address] [place] [address] [address], [place], [address]. tel:[phone] Family History Family Member Type Diagnosis Age At Onset No Information Payers Payer name Insurance type Covered republican ID Roland rust(s) [employer] Medicare Replacement CI [id number] Social History Type Description Quantity Date Captured [...]
[2024-10-09 16:30] LABS: Albumin Level 3.4 g/dL (3.5-5.1); Alkaline Phosphatase 259 U/L (38-126); Anion Gap 18 mmol/L (4-12); Bilirubin,Total 3.7 mg/dL (0.2-1.3); Blood Urea Nitrogen 30 mg/dL (7-17); Calcium 8.8 mg/dL (8.4-10.2); Carbon Dioxide 16 mmol/L (22-30); Chloride 98 mmol/L (98-107); Estimated CRCL calculation 10 ml/min; Estimated Glomerular Filt Rate 10; Glucose 94 mg/dL (65-110); Potassium 4.3 mmol/L (3.4-5.0); Sodium 132 mmol/L (137-145); Total Protein 5.8 g/dL (6.3-8.2)
[2024-10-09 16:32] LABS: INR 1.5; Lactic Acid Reflex 7.5 mmol/L (0.7-2.0); Prothrombin Time 18.1 Seconds (11.1-14.7)
[2024-10-09 16:33] LABS: Partial Thromboplastin Time 34.1 Seconds (22.3-36.8)
--- NOTE | 2024-10-09 16:54 | ED_ITS ---
HPI - General Adult General Chief complaint: Weakness Stated complaint: general weakness Time Seen by Provider: 10/09/24 15:50 History of Present Illness HPI narrative: 78-year-old female presents emergency department for evaluation for increased generalized weakness and some abdominal discomfort. Patient was recently diagnosed with uncomplicated diverticulitis was discharged home on Flagyl and Levaquin. Patient reports she did have follow-up with her primary care physician and was having worsening symptoms at that time. Patient called back to her primary care physician today and stated that her symptoms were continuing to worsen. Patient was referred to the emergency department for further evaluation. Patient's primary complaint is lightheaded and dizziness. Patient was hypotensive on arrival to the emergency department. Patient does have prior history of cholecystectomy. Related Data Home Medications ?Medication ?Instructions ?Recorded ?Confirmed ?Last Taken ?Type aspirin 81 mg tablet,delayed 81 mg PO DAILY 03/09/19 10/09/24 04/14/24 History release (Adult Low Dose Aspirin) cyanocobalamin (vitamin B-12) 1,000 mcg PO QPM 10/25/20 10/09/24 04/14/24 History 1,000 mcg tablet (Vitamin B-12) ascorbic acid (vitamin C) 1,000 mg 1 g PO QPM 10/03/21 10/09/24 04/14/24 History tablet cholecalciferol (vitamin D3) 25 2,000 unit PO DAILY 01/26/22 10/09/24 04/14/24 History mcg (1,000 unit) tablet omega-3 fatty acids 1,000 mg 1,000 mg PO QPM 01/26/22 10/09/24 04/14/24 History capsule turmeric 1,000 mg BYMOUTH DAILY 01/26/22 10/09/24 04/14/24 History biotin 300 mcg tablet 300 mg BYMOUTH DAILY 02/23/24 10/09/24 04/14/24 History Folate 1,330 mg PO DAILY 03/15/24 10/09/24 04/14/24 History calcium 600 mg capsule 1,200 mg PO HS 03/15/24 10/09/24 04/14/24 History calcium polycarbophil 625 mg 625 mg PO DAILY 03/15/24 10/09/24 04/14/24 History tablet (Fiber (calcium polycarbophil)) levofloxacin 750 mg tablet 750 mg PO Q24H 10/09/24 10/09/24 10/07/24 History metronidazole 500 mg tablet 500 mg PO Q8H 10/09/24 10/09/24 10/07/24 History Allergies Allergy/AdvReac Type Severity Reaction Status Date / Time adhesive tape Allergy Intermediate Rash Verified 10/09/24 17:46 Iodinated Contrast Media Allergy Mild Hives Verified 10/09/24 17:46 iodine Allergy Unknown Hives Verified 10/09/24 17:46 codeine AdvReac Unknown Hallucinati Verified 10/09/24 17:46 ng morphine AdvReac Unknown Hallucinati Verified 10/09/24 17:46 ng Review of Systems 2 Review of Systems: All systems reviewed & are unremarkable except as noted in HPI and below PMFSH Past Medical History Medical History (Updated 10/12/24 @ 17:56 by Brett Crane MD) BMI 25.0-25.9,adult BMI 31.0-31.9,adult BMI 26.0-26.9,adult BMI 27.0-27.9,adult Diastolic heart failure Diverticulitis BMI 29.0-29.9,adult Fatty liver Olecranon bursitis of left elbow Chronic back pain Suspected chronic obstructive pulmonary disease based on initial evaluation Pneumonia Asthma exacerbation in COPD Thyroid cancer Coronary artery disease [place] in 2010 status post stent x2. Polymyalgia rheumatica Left bundle branch block Degenerative joint disease Type 2 diabetes mellitus Fibromyalgia Hypertension Hypothyroidism Familial tremor Anxiety with depression Vitamin D deficiency Hyperlipidemia Hearing loss Orthostatic hypotension Surgical History Surgical History History of epidermal inclusion cyst excision Left neck. History of hysterectomy History of coronary artery stent placement History of cholecystectomy History of partial thyroidectomy History of colonoscopy with polypectomy History of breast biopsy Family History Family History Grandparent Diabetes mellitus Mother Hypertension Heart disease Ovarian cancer Father Malignant neoplasm of prostate Cerebrovascular accident Daughter Breast cancer Social History Social History Social History: Surrogate medical decision maker: Allen Tello, spouse. Code status: Full code. Smoking packs per day: 1 Smoking cigarettes per day: 20.0 Smoking status: Former smoker Tobacco type: cigarettes Second hand tobacco smoke exposure: Yes Smoking end date: 02/24/99 Alcohol intake: never Substance use: current Substance use type: marijuana Other substance usage details: tea Last use: 8 mos ago Do You Feel Safe in your Home?: Yes Lack of Transportation: No Lack of Food: Never True Current Housing: I Have Housing Concerned About Future Housing: No Difficulty Paying Gas/Electric Bills: No Difficulty Paying for Meds: No Currently Unemployed: No Education: Trade/Vocational Certificate Difficulty w/ Childcare or Family Care: No Living arrangements: with family Additional living arrangements comments: Lives in [place] with spouse. Spiritual care concerns: No Exam 2 Narrative: APPEARANCE: Ill-appearing HEAD: normocephalic, atraumatic. EYES: PERRLA/EOMI, conjunctivae clear. NOSE: Normal no drainage EARS:TMS clear with good light reflex. THROAT: Pharynx clear, no exudate. NECK: Supple. No adenopathy, no masses. RESPIRATORY: Airway patent, respirations nonlabored. Clear to auscultation bilaterally, no rales, rhonchi, wheezing. CARDIOVASCULAR: Regular rate and rhythm without murmurs rubs or gallops. ABDOMINAL: Epigastric tenderness to palpation MUSCULOSKELETAL: Moves all extremities. Strength/ROM intact, No edema, No calf tenderness. NEURO: Alert. Cranial nerves II through XII intact. Good gait. Good coordination SKIN: Warm, dry. Normal Color Course Vital Signs Vital signs: Vital Signs Temperature 98.3 F 10/09/24 15:50 Pulse Rate 109 H 10/09/24 15:50 Respiratory Rate 21 H 10/09/24 15:50 Blood Pressure 82/49 L 10/09/24 15:50 Pulse Oximetry 95 10/09/24 15:50 Temperature 97.6 F 10/15/24 04:00 Pulse Rate 109 H 10/15/24 04:00 Respiratory Rate 24 H 10/15/24 04:00 Blood Pressure 134/86 10/15/24 04:00 Pulse Oximetry 91 10/15/24 04:30 Oxygen Delivery Nasal Cannula 10/15/24 04:30 Oxygen Flow Rate 2 10/15/24 04:30 Fraction of Inspired Oxygen 21 10/13/24 20:44 Medical Decision Making MDM Narrative Medical decision making narrative: 78-year-old female presents emergency department for evaluation for abdominal pain. Patient reports he was having some increased generalized weakness with associated nausea vomiting. Patient does have significant acute kidney injury with a creatinine of 4.24 and a bilirubin of 3.75 with significant elevation of AST and ALT. Case was discussed with GI and patient will be admitted for an MRCP. Patient was started on IV fluids emergency department. Nephrology was also consulted. Patient did have some low blood pressures upon arrival emergency department these did improve with rehydration. Case discussed with hospitalist patient was accepted for admission. Differential Diagnosis Differential Diagnosis: Colitis, diverticulitis, pancreatitis, cholecystitis, obstructive uropathy, acute kidney injury. Vital Signs Vital Signs: Vital Signs Temperature 98.3 F 10/09/24 15:50 Pulse Rate 109 H 10/09/24 15:50 Respiratory Rate 21 H 10/09/24 15:50 Blood Pressure 82/49 L 10/09/24 15:50 Pulse Oximetry 95 10/09/24 15:50 Temperature 97.6 F 10/15/24 04:00 Pulse Rate 109 H 10/15/24 04:00 Respiratory Rate 24 H 10/15/24 04:00 Blood Pressure 134/86 10/15/24 04:00 Pulse Oximetry 91 10/15/24 04:30 Oxygen Delivery Nasal Cannula 10/15/24 04:30 Oxygen Flow Rate 2 10/15/24 04:30 Fraction of Inspired Oxygen 21 10/13/24 20:44 Lab Data Lab results reviewed: Yes I reviewed the patient's lab results. 10/15/24 05:16 10/15/24 05:16 Labs: Lab Results 10/09/24 10/09/24 10/09/24 Range/Units 16:15 17:06 18:50 WBC 8.8 (4.5-10.0) K/mm3 RBC 4.87 (4.2-5.4) M/mm3 Hgb 13.4 (12.0-15.0) g/dL Hct 42.3 (37.0-47.0) % MCV 86.9 (80-100) fl MCH 27.5 (26-34) pg MCHC 31.7 L (32-36) g/dl RDW 14.7 H (11.5-14.5) % Plt Count 201 (150-375) k/mm3 MPV 9.8 (7.4-10.4) fl Immature Gran % (Auto) 0.6 H (0-0.5) % Neut % (Auto) 75.1 H (45.5-73.1) % Lymph % (Auto) 15.8 L (18.3-44.2) % [place] % (Auto) 6.3 (2.6-8.5) % Eos % (Auto) 1.4 (0-4.4) % Baso % (Auto) 0.8 (0.2-1.2) % Lymph # (Auto) 1.39 (0.9-3.2) K/mm3 [place] # (Auto) 0.6 (0.1-0.6) K/mm3 Eos # (Auto) 0.1 (0-0.3) K/mm3 Baso # (Auto) 0.1 (0.0-0.1) K/mm3 Abs Immat Gran (auto) 0.05 H (0.00-0.031) K/mm3 Absolute Neuts (auto) 6.6 (1.3-6.7) K/mm3 Absolute Nucleated RBC 0.000 (0.0-0.012) K/mm3 Nucleated RBC % 0.0 (0.0-0.2) % ESR 15 (0-20) mm/hr PT 18.1 H (11.1-14.7) Seconds INR 1.5 APTT 34.1 (22.3-36.8) Seconds Sodium 132 L (137-145) mmol/L Potassium 4.3 (3.4-5.0) mmol/L Chloride 98 (98-107) mmol/L Carbon Dioxide 16 L (22-30) mmol/L Anion Gap 18 H (4-12) mmol/L BUN 30 H D (7-17) mg/dL Creatinine 4.24 H (0.7-1.0) mg/dL Estim Creat Clear Calc 10 ml/min Estimated GFR 10 L (59 - ) Glucose 94 (65-110) mg/dL POC Capillary Glucose (65-105) mg/dl Lactic Acid 7.5 H* 6.6 H* (0.7-2.0) mmol/L Calcium 8.8 (8.4-10.2) mg/dL Magnesium (1.6-2.3) mg/dL Total Bilirubin 3.7 H (0.2-1.3) mg/dL AST 4607 H (14-36) U/L ALT 3007 H (6-35) U/L Alkaline Phosphatase 259 H (38-126) U/L Total Creatine Kinase (30-135) U/L Troponin I (0.000-0.034) ng/mL C-Reactive Protein 2.2 H (<1.0) mg/dL Total Protein 5.8 L (6.3-8.2) g/dL Albumin 3.4 L (3.5-5.1) g/dL Lipase 286 (23-300) U/L Beta-Hydroxybutyrate/Acetoacetate (0.02-0.27) mmol/L Procalcitonin 9.3 ng/mL Urine Color Yellow (Yellow) Urine Appearance Cloudy H (Clear) Urine pH 5.5 (5.0-9.0) Ur Specific [place] 1.023 (1.001-1.035) Urine Protein 3+ H (Negative) mg/dL Urine Glucose (UA) 3+ H (Negative) mg/dL Urine Ketones Trace H (Negative) mg/dL Ur Blood (Man) 1+ H (Negative) Urine Nitrate Negative (Negative) Urine Bilirubin Negative (Negative) Urine Urobilinogen 0.2 (<2.0) mg/dL Leukocyte Esterase Rfl Negative (Negative) FREDIS/UL Urine RBC 0-2 (0-2) /hpf Urine WBC 0-5 (0-3) /hpf Ur Squamous Epith Cells Moderate (Few) /hpf Urine Bacteria None seen /hpf Urine Casts 0-2 10/09/24 10/10/24 10/10/24 Range/Units 20:27 00:17 00:53 WBC (4.5-10.0) K/mm3 RBC (4.2-5.4) M/mm3 Hgb (12.0-15.0) g/dL Hct (37.0-47.0) % MCV (80-100) fl MCH (26-34) pg MCHC (32-36) g/dl RDW (11.5-14.5) % Plt Count (150-375) k/mm3 MPV (7.4-10.4) fl Immature Gran % (Auto) (0-0.5) % Neut % (Auto) (45.5-73.1) % Lymph % (Auto) (18.3-44.2) % [place] % (Auto) (2.6-8.5) % Eos % (Auto) (0-4.4) % Baso % (Auto) (0.2-1.2) % Lymph # (Auto) (0.9-3.2) K/mm3 [place] # (Auto) (0.1-0.6) K/mm3 Eos # (Auto) (0-0.3) K/mm3 Baso # (Auto) (0.0-0.1) K/mm3 Abs Immat Gran (auto) (0.00-0.031) K/mm3 Absolute Neuts (auto) (1.3-6.7) K/mm3 Absolute Nucleated RBC (0.0-0.012) K/mm3 Nucleated RBC % (0.0-0.2) % ESR (0-20) mm/hr PT (11.1-14.7) Seconds INR APTT (22.3-36.8) Seconds Sodium (137-145) mmol/L Potassium (3.4-5.0) mmol/L Chloride (98-107) mmol/L Carbon Dioxide (22-30) mmol/L Anion Gap (4-12) mmol/L BUN (7-17) mg/dL Creatinine (0.7-1.0) mg/dL Estim Creat Clear Calc ml/min Estimated GFR (59 - ) Glucose (65-110) mg/dL POC Capillary Glucose 83 84 (65-105) mg/dl Lactic Acid 3.9 H (0.7-2.0) mmol/L Calcium (8.4-10.2) mg/dL Magnesium 2.1 (1.6-2.3) mg/dL Total Bilirubin (0.2-1.3) mg/dL AST (14-36) U/L ALT (6-35) U/L Alkaline Phosphatase (38-126) U/L Total Creatine Kinase (30-135) U/L Troponin I (0.000-0.034) ng/mL C-Reactive Protein (<1.0) mg/dL Total Protein (6.3-8.2) g/dL Albumin (3.5-5.1) g/dL Lipase (23-300) U/L Beta-Hydroxybutyrate/Acetoacetate (0.02-0.27) mmol/L Procalcitonin ng/mL Urine Color (Yellow) Urine Appearance (Clear) Urine pH (5.0-9.0) Ur Specific [place] (1.001-1.035) Urine Protein (Negative) mg/dL Urine Glucose (UA) (Negative) mg/dL Urine Ketones (Negative) mg/dL Ur Blood (Man) (Negative) Urine Nitrate (Negative) Urine Bilirubin (Negative) Urine Urobilinogen (<2.0) mg/dL Leukocyte Esterase Rfl (Negative) FREDIS/UL Urine RBC (0-2) /hpf Urine WBC (0-3) /hpf Ur Squamous Epith Cells (Few) /hpf Urine Bacteria /hpf Urine Casts 10/10/24 10/10/24 10/10/24 Range/Units 00:53 03:41 03:41 WBC 9.8 (4.5-10.0) K/mm3 RBC 4.14 L (4.2-5.4) M/mm3 Hgb 11.6 L (12.0-15.0) g/dL Hct 35.7 L (37.0-47.0) % MCV 86.2 (80-100) fl MCH 28.0 (26-34) pg MCHC 32.5 (32-36) g/dl RDW 14.7 H (11.5-14.5) % Plt Count 169 (150-375) k/mm3 MPV 9.9 (7.4-10.4) fl Immature Gran % (Auto) 0.5 (0-0.5) % Neut % (Auto) 83.7 H (45.5-73.1) % Lymph % (Auto) 7.7 L (18.3-44.2) % [place] % (Auto) 6.3 (2.6-8.5) % Eos % (Auto) 1.2 (0-4.4) % Baso % (Auto) 0.6 (0.2-1.2) % Lymph # (Auto) 0.75 L (0.9-3.2) K/mm3 [place] # (Auto) 0.6 (0.1-0.6) K/mm3 Eos # (Auto) 0.1 (0-0.3) K/mm3 Baso # (Auto) 0.1 (0.0-0.1) K/mm3 Abs Immat Gran (auto) 0.05 H (0.00-0.031) K/mm3 Absolute Neuts (auto) 8.2 H (1.3-6.7) K/mm3 Absolute Nucleated RBC 0.000 (0.0-0.012) K/mm3 Nucleated RBC % 0.0 (0.0-0.2) % ESR (0-20) mm/hr PT 17.0 H (11.1-14.7) Seconds INR 1.4 APTT 32.7 (22.3-36.8) Seconds Sodium 127 L (137-145) mmol/L Potassium 4.7 (3.4-5.0) mmol/L Chloride 98 (98-107) mmol/L Carbon Dioxide 18 L (22-30) mmol/L Anion Gap 11 (4-12) mmol/L BUN 33 H (7-17) mg/dL Creatinine 4.37 H (0.7-1.0) mg/dL Estim Creat Clear Calc 11 ml/min Estimated GFR 10 L (59 - ) Glucose 92 (65-110) mg/dL POC Capillary Glucose (65-105) mg/dl Lactic Acid 3.9 H (0.7-2.0) mmol/L Calcium 7.8 L (8.4-10.2) mg/dL Magnesium Cancelled (1.6-2.3) mg/dL Total Bilirubin 2.9 H (0.2-1.3) mg/dL AST 2353 H (14-36) U/L ALT 1836 H (6-35) U/L Alkaline Phosphatase 249 H (38-126) U/L Total Creatine Kinase 54 (30-135) U/L Troponin I 0.043 H* Cancelled (0.000-0.034) ng/mL C-Reactive Protein (<1.0) mg/dL Total Protein 4.8 L (6.3-8.2) g/dL Albumin 2.6 L (3.5-5.1) g/dL Lipase 109 (23-300) U/L Beta-Hydroxybutyrate/Acetoacetate (0.02-0.27) mmol/L Procalcitonin ng/mL Urine Color (Yellow) Urine Appearance (Clear) Urine pH (5.0-9.0) Ur Specific [place] (1.001-1.035) Urine Protein (Negative) mg/dL Urine Glucose (UA) (Negative) mg/dL Urine Ketones (Negative) mg/dL Ur Blood (Man) (Negative) Urine Nitrate (Negative) Urine Bilirubin (Negative) Urine Urobilinogen (<2.0) mg/dL Leukocyte Esterase Rfl (Negative) FREDIS/UL Urine RBC (0-2) /hpf Urine WBC (0-3) /hpf Ur Squamous Epith Cells (Few) /hpf Urine Bacteria /hpf Urine Casts 10/10/24 10/10/24 10/10/24 Range/Units 06:27 06:48 10:10 WBC (4.5-10.0) K/mm3 RBC (4.2-5.4) M/mm3 Hgb (12.0-15.0) g/dL Hct (37.0-47.0) % MCV (80-100) fl MCH (26-34) pg MCHC (32-36) g/dl RDW (11.5-14.5) % Plt Count (150-375) k/mm3 MPV (7.4-10.4) fl Immature Gran % (Auto) (0-0.5) % Neut % (Auto) (45.5-73.1) % Lymph % (Auto) (18.3-44.2) % [place] % (Auto) (2.6-8.5) % Eos % (Auto) (0-4.4) % Baso % (Auto) (0.2-1.2) % Lymph # (Auto) (0.9-3.2) K/mm3 [place] # (Auto) (0.1-0.6) K/mm3 Eos # (Auto) (0-0.3) K/mm3 Baso # (Auto) (0.0-0.1) K/mm3 Abs Immat Gran (auto) (0.00-0.031) K/mm3 Absolute Neuts (auto) (1.3-6.7) K/mm3 Absolute Nucleated RBC (0.0-0.012) K/mm3 Nucleated RBC % (0.0-0.2) % ESR (0-20) mm/hr PT (11.1-14.7) Seconds INR APTT > 200.0 H* (22.3-36.8) Seconds Sodium (137-145) mmol/L Potassium (3.4-5.0) mmol/L Chloride (98-107) mmol/L Carbon Dioxide (22-30) mmol/L Anion Gap (4-12) mmol/L BUN (7-17) mg/dL Creatinine (0.7-1.0) mg/dL Estim Creat Clear Calc ml/min Estimated GFR (59 - ) Glucose (65-110) mg/dL POC Capillary Glucose 107 H (65-105) mg/dl Lactic Acid 1.4 (0.7-2.0) mmol/L Calcium (8.4-10.2) mg/dL Magnesium (1.6-2.3) mg/dL Total Bilirubin (0.2-1.3) mg/dL AST (14-36) U/L ALT (6-35) U/L Alkaline Phosphatase (38-126) U/L Total Creatine Kinase (30-135) U/L Troponin I 0.052 H* D 0.071 H* D (0.000-0.034) ng/mL C-Reactive Protein (<1.0) mg/dL Total Protein (6.3-8.2) g/dL Albumin (3.5-5.1) g/dL Lipase (23-300) U/L Beta-Hydroxybutyrate/Acetoacetate 1.07 H (0.02-0.27) mmol/L Procalcitonin ng/mL Urine Color (Yellow) Urine Appearance (Clear) Urine pH (5.0-9.0) Ur Specific [place] (1.001-1.035) Urine Protein (Negative) mg/dL Urine Glucose (UA) (Negative) mg/dL Urine Ketones (Negative) mg/dL Ur Blood (Man) (Negative) Urine Nitrate (Negative) Urine Bilirubin (Negative) Urine Urobilinogen (<2.0) mg/dL Leukocyte Esterase Rfl (Negative) FREDIS/UL Urine RBC (0-2) /hpf Urine WBC (0-3) /hpf Ur Squamous Epith Cells (Few) /hpf Urine Bacteria /hpf Urine Casts 10/10/24 10/10/24 10/10/24 Range/Units 11:23 17:51 18:08 WBC (4.5-10.0) K/mm3 RBC (4.2-5.4) M/mm3 Hgb (12.0-15.0) g/dL Hct (37.0-47.0) % MCV (80-100) fl MCH (26-34) pg MCHC (32-36) g/dl RDW (11.5-14.5) % Plt Count (150-375) k/mm3 MPV (7.4-10.4) fl Immature Gran % (Auto) (0-0.5) % Neut % (Auto) (45.5-73.1) % Lymph % (Auto) (18.3-44.2) % [place] % (Auto) (2.6-8.5) % Eos % (Auto) (0-4.4) % Baso % (Auto) (0.2-1.2) % Lymph # (Auto) (0.9-3.2) K/mm3 [place] # (Auto) (0.1-0.6) K/mm3 Eos # (Auto) (0-0.3) K/mm3 Baso # (Auto) (0.0-0.1) K/mm3 Abs Immat Gran (auto) (0.00-0.031) K/mm3 Absolute Neuts (auto) (1.3-6.7) K/mm3 Absolute Nucleated RBC (0.0-0.012) K/mm3 Nucleated RBC % (0.0-0.2) % ESR (0-20) mm/hr PT (11.1-14.7) Seconds INR APTT > 200.0 H* (22.3-36.8) Seconds Sodium (137-145) mmol/L Potassium (3.4-5.0) mmol/L Chloride (98-107) mmol/L Carbon Dioxide (22-30) mmol/L Anion Gap (4-12) mmol/L BUN (7-17) mg/dL Creatinine (0.7-1.0) mg/dL Estim Creat Clear Calc ml/min Estimated GFR (59 - ) Glucose (65-110) mg/dL POC Capillary Glucose 84 148 H (65-105) mg/dl Lactic Acid (0.7-2.0) mmol/L Calcium (8.4-10.2) mg/dL Magnesium (1.6-2.3) mg/dL Total Bilirubin (0.2-1.3) mg/dL AST (14-36) U/L ALT (6-35) U/L Alkaline Phosphatase (38-126) U/L Total Creatine Kinase (30-135) U/L Troponin I (0.000-0.034) ng/mL C-Reactive Protein (<1.0) mg/dL Total Protein (6.3-8.2) g/dL Albumin (3.5-5.1) g/dL Lipase (23-300) U/L Beta-Hydroxybutyrate/Acetoacetate (0.02-0.27) mmol/L Procalcitonin ng/mL Urine Color (Yellow) Urine Appearance (Clear) Urine pH (5.0-9.0) Ur Specific [place] (1.001-1.035) Urine Protein (Negative) mg/dL Urine Glucose (UA) (Negative) mg/dL Urine Ketones (Negative) mg/dL Ur Blood (Man) (Negative) Urine Nitrate (Negative) Urine Bilirubin (Negative) Urine Urobilinogen (<2.0) mg/dL Leukocyte Esterase Rfl (Negative) FREDIS/UL Urine RBC (0-2) /hpf Urine WBC (0-3) /hpf Ur Squamous Epith Cells (Few) /hpf Urine Bacteria /hpf Urine Casts 10/10/24 10/10/24 10/11/24 Range/Units 22:21 23:33 05:00 WBC 10.4 H (4.5-10.0) K/mm3 RBC 4.64 (4.2-5.4) M/mm3 Hgb 12.8 (12.0-15.0) g/dL Hct 40.2 (37.0-47.0) % MCV 86.6 (80-100) fl MCH 27.6 (26-34) pg MCHC 31.8 L (32-36) g/dl RDW 14.8 H (11.5-14.5) % Plt Count 191 (150-375) k/mm3 MPV 10.1 (7.4-10.4) fl Immature Gran % (Auto) 0.7 H (0-0.5) % Neut % (Auto) 81.9 H (45.5-73.1) % Lymph % (Auto) 8.5 L (18.3-44.2) % [place] % (Auto) 6.2 (2.6-8.5) % Eos % (Auto) 1.9 (0-4.4) % Baso % (Auto) 0.8 (0.2-1.2) % Lymph # (Auto) 0.89 L (0.9-3.2) K/mm3 [place] # (Auto) 0.7 H (0.1-0.6) K/mm3 Eos # (Auto) 0.2 (0-0.3) K/mm3 Baso # (Auto) 0.1 (0.0-0.1) K/mm3 Abs Immat Gran (auto) 0.07 H (0.00-0.031) K/mm3 Absolute Neuts (auto) 8.5 H (1.3-6.7) K/mm3 Absolute Nucleated RBC 0.000 (0.0-0.012) K/mm3 Nucleated RBC % 0.0 (0.0-0.2) % ESR (0-20) mm/hr PT (11.1-14.7) Seconds INR APTT 75.5 H 99.6 H (22.3-36.8) Seconds Sodium 127 L (137-145) mmol/L Potassium 4.3 (3.4-5.0) mmol/L Chloride 94 L (98-107) mmol/L Carbon Dioxide 20 L (22-30) mmol/L Anion Gap 13 H (4-12) mmol/L BUN 35 H (7-17) mg/dL Creatinine 5.38 H (0.7-1.0) mg/dL Estim Creat Clear Calc 9 ml/min Estimated GFR 8 L (59 - ) Glucose 119 H (65-110) mg/dL POC Capillary Glucose 119 H (65-105) mg/dl Lactic Acid (0.7-2.0) mmol/L Calcium 7.7 L (8.4-10.2) mg/dL Magnesium (1.6-2.3) mg/dL Total Bilirubin 2.9 H (0.2-1.3) mg/dL AST 1047 H (14-36) U/L ALT 1440 H (6-35) U/L Alkaline Phosphatase 399 H (38-126) U/L Total Creatine Kinase (30-135) U/L Troponin I (0.000-0.034) ng/mL C-Reactive Protein (<1.0) mg/dL Total Protein 5.5 L (6.3-8.2) g/dL Albumin 3.0 L (3.5-5.1) g/dL Lipase (23-300) U/L Beta-Hydroxybutyrate/Acetoacetate (0.02-0.27) mmol/L Procalcitonin ng/mL Urine Color (Yellow) Urine Appearance (Clear) Urine pH (5.0-9.0) Ur Specific [place] (1.001-1.035) Urine Protein (Negative) mg/dL Urine Glucose (UA) (Negative) mg/dL Urine Ketones (Negative) mg/dL Ur Blood (Man) (Negative) Urine Nitrate (Negative) Urine Bilirubin (Negative) Urine Urobilinogen (<2.0) mg/dL Leukocyte Esterase Rfl (Negative) FREDIS/UL Urine RBC (0-2) /hpf Urine WBC (0-3) /hpf Ur Squamous Epith Cells (Few) /hpf Urine Bacteria /hpf Urine Casts Critical Care Time Critical Care Time Critical Care Time: Yes Total Critical Care Time: 35 Discharge Plan Discharge Clinical Impression: CHAD (acute kidney injury), Weakness, Pancreatitis Patient Disposition: Still a Patient Condition: Serious
[2024-10-09 17:04] LABS: Lipase 286 U/L (23-300)
[2024-10-09 17:11] LABS: Alanine Aminotransferase 3007 U/L (6-35)
[2024-10-09 17:15] LABS: Erythrocyte Sedimentation Rate 15 mm/hr (0-20)
[2024-10-09 17:16] LABS: Aspartate Amino Transferase 4607 U/L (14-36)
[2024-10-09 17:29] LABS: CRP 2.2 mg/dL (<1.0)
[2024-10-09 17:31] LABS: Add Urine Microscopic? YES; Appearance Urine Cloudy (Clear); Bacteria Urine None Seen /hpf; Bilirubin Urine Negative (Negative); Blood Urine 1+ (Negative); Color Urine Yellow (Yellow); Glucose Urine UA 3+ mg/dL (Negative); Ketones Urine Trace mg/dL (Negative); Leukocyte Esterase Ur Negative LEU/UL (Negative); Nitrate Urine Negative (Negative); Non Pathogenic Casts 0-2; Protein Urine 3+ mg/dL (Negative); RBC Urine 0-2 /hpf (0-2); Specific Grav Ur 1.023 (1.001-1.035); Squamous Epithelial Cell Urine Moderate /hpf (Few); Urobilinogen Urine 0.2 mg/dL (<2.0); WBC Urine 0-5 /hpf (0-3); pH Urine 5.5 (5.0-9.0)
[2024-10-09 17:44] LABS: Procalcitonin 9.3 ng/mL
[2024-10-09] MEDS: PIPERACILLIN/TAZ 2.25G/NS 50ML 2.25 GM/50 ML BAG IVPB (17:44)
[2024-10-09 18:19] LABS: Reflex Lactic Acid Yes or No Add Lactic
[2024-10-09 19:11] LABS: Lactic Acid 6.6 mmol/L (0.7-2.0)
[2024-10-09] MEDS: LACTATED RINGERS 1,000 ML 125 ML IV CONT (19:36)
--- NOTE | 2024-10-09 19:45 | P.HP_ITS ---
H&P: HPI History of Present Illness Date/Time: 10/09/24 19:45 Chief Complaint: Generalized weakness Narrative: 78-year-old female history of fatty liver, CAD, diabetes type 2, diverticulosis, hypertension hyperthyroid presents the hospital with generalized weakness. Patient states that she was so weak that she had trouble walking. She complains of nausea and vomiting and muscle pains. She states that she has been having regular bowel movements. Lab work shows a sodium of 132, BUN of 30 creatinine of 4.24 with previous creatinine being 1.12, total bilirubin of 3.75 AST of 4607 ALT of 3007 alkaline phos of 2 UA shows noninfective urine 59, abdomen pelvis CT shows trace pericardial effusion, pulmonary nodule, mild phlegm a morales changes around the pancreas, mild stranding primary bile ducts and possible ileus. Patient was started on IV Zosyn, blood cultures pending, and schedule for MRCP tomorrow with GI on board. Review of Systems Review of Systems: 12 systems were reviewed and are negativ e except for as per HPI. [facility] Past Medical History Medical History (Updated 10/09/24 @ 20:02 by Andria Mcfarland, [employer]) Pancreatitis BMI 25.0-25.9,adult BMI 31.0-31.9,adult BMI 26.0-26.9,adult BMI 27.0-27.9,adult Diastolic heart failure Diverticulitis BMI 29.0-29.9,adult Fatty liver Olecranon bursitis of left elbow Chronic back pain Suspected chronic obstructive pulmonary disease based on initial evaluation Pneumonia Asthma exacerbation in COPD Thyroid cancer Coronary artery disease HI in 2010 status post stent x2. Polymyalgia rheumatica Left bundle branch block Degenerative joint disease Type 2 diabetes mellitus Fibromyalgia Hypertension Hypothyroidism Familial tremor Anxiety with depression Vitamin D deficiency Hyperlipidemia Hearing loss Orthostatic hypotension Surgical History Surgical History History of epidermal inclusion cyst excision Left neck. History of hysterectomy History of coronary artery stent placement History of cholecystectomy History of partial thyroidectomy History of colonoscopy with polypectomy History of breast biopsy Family History Family History Grandparent Diabetes mellitus Mother Hypertension Heart disease Ovarian cancer Father Malignant neoplasm of prostate Cerebrovascular accident Daughter Breast cancer Social History Social History Social History: Surrogate medical decision maker: Allen Méndezabo, spouse. Code status: Full code. Smoking packs per day: 1 Smoking cigarettes per day: 20.0 Smoking status: Former smoker Tobacco type: cigarettes Second hand tobacco smoke exposure: Yes Smoking end date: 02/24/99 Alcohol intake: never Substance use: current Substance use type: marijuana Other substance usage details: tea Last use: 8 mos ago Do You Feel Safe in your Home?: Yes Lack of Transportation: No Lack of Food: Never True Current Housing: I Have Housing Concerned About Future Housing: No Difficulty Paying Gas/Electric Bills: No Difficulty Paying for Meds: No Currently Unemployed: No Education: Trade/Vocational Certificate Difficulty w/ Childcare or Family Care: No Living arrangements: with family Additional living arrangements comments: Lives in [place] with spouse. Spiritual care concerns: No Meds Home Medications and Allergies Home Medications ?Medication ?Instructions ?Recorded ?Confirmed ?Type aspirin 81 mg tablet,delayed 81 mg PO DAILY 03/09/19 10/09/24 History release (Adult Low Dose Aspirin) cyanocobalamin (vitamin B-12) 1,000 mcg PO QPM 10/25/20 10/09/24 History 1,000 mcg tablet (Vitamin B-12) ascorbic acid (vitamin C) 1,000 mg 1 g PO QPM 10/03/21 10/09/24 History tablet cholecalciferol (vitamin D3) 25 2,000 unit PO DAILY 01/26/22 10/09/24 History mcg (1,000 unit) tablet omega-3 fatty acids 1,000 mg 1,000 mg PO QPM 01/26/22 10/09/24 History capsule turmeric 1,000 mg BYMOUTH DAILY 01/26/22 10/09/24 History biotin 300 mcg tablet 300 mg BYMOUTH DAILY 02/23/24 10/09/24 History Folate 1,330 mg PO DAILY 03/15/24 10/09/24 History calcium 600 mg capsule 1,200 mg PO HS 03/15/24 10/09/24 History calcium polycarbophil 625 mg 625 mg PO DAILY 03/15/24 10/09/24 History tablet (Fiber (calcium polycarbophil)) escitalopram oxalate 20 mg tablet See Rx Instructions .Route 05/19/24 10/09/24 Rx .COMPLEX #90 tabs levothyroxine 150 mcg tablet 150 mcg PO EVERY OTHER DAY #45 tabs 06/14/24 10/09/24 Rx losartan 50 mg tablet 50 mg PO DAILY #90 tabs 06/17/24 10/09/24 Rx levothyroxine 125 mcg tablet See Rx Instructions .Route 07/05/24 10/09/24 Rx .COMPLEX #90 tabs montelukast 10 mg tablet See Rx Instructions .Route 07/09/24 10/09/24 Rx .COMPLEX #90 tabs rosuvastatin 40 mg tablet See Rx Instructions .Route 07/09/24 10/09/24 Rx .COMPLEX #90 tabs metformin 500 mg tablet,extended See Rx Instructions .Route 08/16/24 10/09/24 Rx release 24 hr .COMPLEX #360 tabs empagliflozin 25 mg tablet 25 mg PO DAILY #90 tabs 09/06/24 10/09/24 Rx (Jardiance) linagliptin 5 mg tablet (Tradjenta) 5 mg PO QAM #90 tabs 09/06/24 10/09/24 Rx levofloxacin 750 mg tablet 750 mg PO Q24H 10/09/24 10/09/24 History metronidazole 500 mg tablet 500 mg PO Q8H 10/09/24 10/09/24 History Allergies Allergy/AdvReac Type Severity Reaction Status Date / Time adhesive tape Allergy Intermediate Rash Verified 10/09/24 17:46 Iodinated Contrast Media Allergy Mild Hives Verified 10/09/24 17:46 iodine Allergy Unknown Hives Verified 10/09/24 17:46 codeine AdvReac Unknown Hallucinati Verified 10/09/24 17:46 ng morphine AdvReac Unknown Hallucinati Verified 10/09/24 17:46 ng Vital Signs Vital Signs - 24 hr 10/09/24 15:50 10/09/24 16:31 10/09/24 17:44 Temperature 98.3 F Pulse Rate 109 H 94 86 Respiratory Rate 21 H 11 L 21 H Blood Pressure 82/49 L 82/50 L 103/56 L Pulse Oximetry 95 98 99 10/09/24 18:16 Temperature Pulse Rate 87 Respiratory Rate 19 Blood Pressure 111/54 L Pulse Oximetry 97 Exam Narrative: General: well appearing, appears stated age. HEENT: normocephalic, atraumatic. Mucous membranes moist. EOMI, PERRLA, bilateral sclera anicteric, no conjunctival injection. Neck supple without JVD, lymphadenopathy, or bruit. Respiratory: clear to ascultation bilaterally. No rales/rhonic/wheezes. Cardiovascular: Regular rate and rhythm, normal S1-S2 upon ascultation. No murmurs, rubs, or clicks. PMI is nondisplaced, capillary refill less than 3 second. Abdomen: Soft, round, no pulsatile masses, nondistended and nontender. No rebound, no guarding. No CVA tenderness, no hepatosplenomegaly. Bowel sounds present to all four quadrants. No high pitch or tinkling sounds, resonant to percussion. Extremities: No cyanosis, clubbing, or edema present. Pulses are palpable 2/2. Active ROM to all four extremities. Neuro: Alert and orientated x 4. PERRLA. Cranial nerves 2-12 intact without focal deficit. Skin: Warm, dry, and intact, without rash, erythema, or lesion. Psych: pleasant, cooperative, normal speech, normal affect, no hallucinations, no dysarthia H&P: Results Labs Labs: Short CBC 10/09/24 Range/Units 16:15 WBC 8.8 (4.5-10.0) K/mm3 Hgb 13.4 (12.0-15.0) g/dL Hct 42.3 (37.0-47.0) % Plt Count 201 (150-375) k/mm3 BMP 10/09/24 16:15 Sodium 132 L Potassium 4.3 Chloride 98 Carbon Dioxide 16 L BUN 30 H D Creatinine 4.24 H Glucose 94 Calcium 8.8 Liver Function 10/09/24 Range/Units 16:15 Total Bilirubin 3.7 H (0.2-1.3) mg/dL AST 4607 H (14-36) U/L ALT 3007 H (6-35) U/L Alkaline Phosphatase 259 H (38-126) U/L Albumin 3.4 L (3.5-5.1) g/dL Urine 10/09/24 Range/Units 17:06 Urine Color Yellow (Yellow) Urine Appearance Cloudy H (Clear) Urine pH 5.5 (5.0-9.0) Ur Specific [place] 1.023 (1.001-1.035) Urine Protein 3+ H (Negative) mg/dL Urine Glucose (UA) 3+ H (Negative) mg/dL Assessment and Plan Assessment and plan (1) Pancreatitis: Code(s): K85.90 - Acute pancreatitis without necrosis or infection, unspecified Status: Acute Assessment and Plan: Aggressive fluid hydration with LR Lipase in the a.m. NPO (2) CHAD (acute kidney injury): Code(s): N17.9 - Acute kidney failure, unspecified Status: Acute Assessment and Plan: Nephrology on board Increase fluid hydration BMP in the morning (3) Constipation: Code(s): K59.00 - Constipation, unspecified Status: Acute Assessment and Plan: Senna (4) Diabetes: Code(s): E11.9 - Type 2 diabetes mellitus without complications Status: Acute Assessment and Plan: Accu-Chelashonda q.6 SSI Hold home diabetes medications Quality VTE Prophylaxis VTE prophylaxis: mechanical ordered Hospitalist MIPS Advance Care Plan I have confirmed that the patient's Advanced Care Plan is present, code status is documented, or surrogate decision maker is listed in patient medical record.: Yes Medication Reconciliation I have utilized all available resources to obtain, update and review the patients current medications (includes all prescriptions, OTC, herbals, cannabis, and nutritional supplements).: Yes
[2024-10-09 20:31] LABS: Glucose Point of Care 83 mg/dl (65-105)
--- NOTE | 2024-10-09 22:30 | ADMGEN ---
This patient, Allyson Tello, was admitted to IMU Room 205-01 at 1853. Patient/family oriented to hospital policies and general routines including ID bracelet, bed and alarms, visiting hours, pain management, procedures, bathroom and other care routines, personal items, smoking policy, room service/diet, and visiting hours. Information on how to activate the Rapid Response Team has been discussed. Patient/Family are encouraged to report perceived risks to care and to ask questions if they do not understand what they are told or what they should do.
[2024-10-10] VITALS (19 sets, daily range): BP systolic 100–123; BP diastolic 42–65; PULSE 77–138; RESP 16–24; TEMP 36.6–37.1; O2SAT 94–98
[2024-10-10] MEDS: PIPERACILLIN/TAZ 2.25G/NS 50ML 2.25 GM/50 ML BAG IVPB ×3 (00:15→11:34)
[2024-10-10 00:39] LABS: Glucose Point of Care 84 mg/dl (65-105)
[2024-10-10] MEDS: HYDROmorphone HCL INJ (*CRX) 2 MG/ML VIAL 0.5 MG IV PUSH (00:42)
[2024-10-10] MEDS: LACTATED RINGERS 1,000 ML 200 ML IV CONT (01:00)
--- NOTE | 2024-10-10 01:01 | ECG_ITS ---
Test Date: 2024-10-10 01:08:07 Measurements Intervals [place] Rate: 133 P: 0 TN: 0 QRS: 7 QRSD: 142 T: 141 QT: 338 QTc: 503 Interpretive Statements ATRIAL FIBRILLATION WITH RAPID VENTRICULAR RESPONSE LEFT BUNDLE BRANCH BLOCK BASELINE ARTIFACT- I II, III, AVR, AVL ABNORMAL ECG No previous ECG available for comparison Electronically Signed On 10-10-2024 07:16:57 CDT by Alvin Morrow D.O.
[2024-10-10 01:13] LABS: Lactic Acid Reflex 3.9 mmol/L (0.7-2.0)
[2024-10-10 01:22] LABS: Creatine Kinase 54 U/L (30-135); Magnesium 2.1 mg/dL (1.6-2.3)
--- NOTE | 2024-10-10 02:40 | PM.EVENT ---
Event Note Event Note Event Note: Patient was admitted with acute pancreatitis and acute kidney injury. Patient had severe lactic acidosis. Nursing staff called because the patient's heart rate was starting elevate and the patient's maintenance fluids of LR at 200 mL an hour while only ordered for 1 L. stat repeat labs were obtained with improved lactic acid down to 3.9. Patient soon thereafter flipped into AFib with RVR. Rhythm was confirmed with EKG. Will obtain repeat blood pressure. If blood pressures stable will place start the patient on a Cardizem drip as patient had prior echocardiogram demonstrating normal ejection fraction in 2021. No prior history of AFib noted in the medical record. Will obtain echocardiogram, troponin level, a repeat CMP to verify normal potassium level injury evaluate the patient's transaminitis and will start patient on heparin drip for CVA prophylaxis. Patient did develop some hallucinations following Dilaudid administration for her severe abdominal pain. GENERAL: Acutely ill-appearing, elderly, well-nourished HEENT: Mucous membranes are dry, no oral pharyngeal erythema, positive conjunctival pallor, no scleral icterus CARDIOVASCULAR: Irregularly irregular, tachycardic, 2+ bilateral radial pedal pulses, no JVD RESPIRATORY: Clear to auscultation bilaterally, no increased work of breathing ABDOMEN: Distended, hyperactive, high-pitched bowel sounds, tenderness in bilateral lower quadrants INTEGUMENT: Generalized pallor, non jaundice NEUROLOGIC: Alert oriented x3, speech is clear, no facial asymmetry PSYCHIATRIC: Having visual hallucinations swallowing narcotic administration but rationalize is the hallucinations and realizes that she is hallucinating EXTREMITIES: No clubbing, cyanosis or edema : Deferred AFib RVR new onset--likely secondary to stress from underlying acute pancreatitis. Will obtain echocardiogram, start Cardizem drip 5 mg an hour, check electrolyte panel 2. Acute pancreatitis-- will repeat CMP and lipase level, continue fluid administration given the patient is receiving antibiotics Cardizem drip in addition to fluids will decrease fluid rate down to 150 mL an hour. Pain medications 0.5 mg Dilaudid p.r.n. q.3 hours. Pain improved after pain medication administration. Patient's volume status still appears relatively hypovolemic. Continue IV fluids but will decrease rate to 150 mL an hour. 3. Encephalopathy due to opiate administration will monitor closely and continue to reorient. 40 minute spent in critical care activities. Due to a high probability of clinically significant, life threatening deterioration, the patient required my highest level of preparedness to intervene emergently and I personally spent this critical care time directly and personally managing the patient. This critical care time included obtaining a history; examining the patient; pulse oximetry; ordering and review of studies; arranging urgent treatment with development of a management plan; evaluation of patient's response to treatment; frequent reassessment; and discussions with other providers. It was exclusive of separately billable procedures and treating other patients and teaching time. Please see Assessment and Plan section and the rest of the note for further information on patient assessment and treatment.
[2024-10-10] MEDS: HEPARIN SODIUM 5,000 UNITS/ML VIAL 5500 UNITS IV PUSH (03:46)
[2024-10-10] MEDS: HEPARIN SOD/D5W 100 UNITS/ML 25,000 UNITS/250 ML BAG 13 UNITS IV CONT (03:47)
[2024-10-10 03:48] LABS: Basophils Absolute Auto 0.1 K/mm3 (0.0-0.1); Basophils Percent Auto 0.6 % (0.2-1.2); Eosinophils Absolute Auto 0.1 K/mm3 (0-0.3); Eosinophils Percent Auto 1.2 % (0-4.4); Hematocrit 35.7 % (37.0-47.0); Hemoglobin 11.6 g/dL (12.0-15.0); Immature Granulocyte Absolute 0.05 K/mm3 (0.00-0.031); Immature Granulocyte Percent A 0.5 % (0-0.5); Lymphocytes Absolute Auto 0.75 K/mm3 (0.9-3.2); Lymphocytes Percent Auto 7.7 % (18.3-44.2); Mean Corpuscular HGB Conc 32.5 g/dl (32-36); Mean Corpuscular Volume 86.2 fl (80-100); Mean Platelet Volume 9.9 fl (7.4-10.4); Monocytes Absolute Auto 0.6 K/mm3 (0.1-0.6); Monocytes Percent Auto 6.3 % (2.6-8.5); Neutrophils Absolute Auto 8.2 K/mm3 (1.3-6.7); Neutrophils Percent Auto 83.7 % (45.5-73.1); Platelet Count Result 169 k/mm3 (150-375); Red Blood Count 4.14 M/mm3 (4.2-5.4); Red Cell Distribution Width 14.7 % (11.5-14.5); White Blood Count 9.8 K/mm3 (4.5-10.0)
[2024-10-10] MEDS: dilTIAZem 100 MG/100 ML 100 MG/100 ML BAG IV CONT ×2 (03:54→22:00)
[2024-10-10 04:01] LABS: INR 1.4
[2024-10-10 04:02] LABS: Partial Thromboplastin Time 32.7 Seconds (22.3-36.8)
[2024-10-10 05:15] LABS: Lactic Acid Reflex 3.9 mmol/L (0.7-2.0)
[2024-10-10 05:34] LABS: Albumin Level 2.6 g/dL (3.5-5.1); Alkaline Phosphatase 249 U/L (38-126); Anion Gap 11 mmol/L (4-12); Bilirubin,Total 2.9 mg/dL (0.2-1.3); Blood Urea Nitrogen 33 mg/dL (7-17); Calcium 7.8 mg/dL (8.4-10.2); Carbon Dioxide 18 mmol/L (22-30); Chloride 98 mmol/L (98-107); Estimated CRCL calculation 11 ml/min; Estimated Glomerular Filt Rate 10; Glucose 92 mg/dL (65-110); Lipase 109 U/L (23-300); Potassium 4.7 mmol/L (3.4-5.0); Sodium 127 mmol/L (137-145); Total Protein 4.8 g/dL (6.3-8.2)
[2024-10-10 05:45] LABS: Troponin I 0.043 ng/mL (0.000-0.034)
[2024-10-10 05:47] LABS: Alanine Aminotransferase 1836 U/L (6-35)
--- NOTE | 2024-10-10 06:04 | ECG_ITS ---
Test Date: 2024-10-10 06:14:31 Measurements Intervals [place] Rate: 93 P: 0 FL: 0 QRS: 26 QRSD: 138 T: 91 QT: 411 QTc: 511 Interpretive Statements SINUS RHTYHM BORDERLINE AV CONDUCTION DELAY LEFT BUNDLE BRANCH BLOCK ABNORMAL ECG Compared to ECG 10/10/2024 01:08:07 ATRIAL FIBRILLATION NO LONGER PRESENT Electronically Signed On 10-10-2024 07:16:30 CDT by Alvin Morrow D.O.
[2024-10-10 06:10] LABS: Aspartate Amino Transferase 2353 U/L (14-36)
[2024-10-10] MEDS: LEVOTHYROXINE SODIUM 125 MCG TABLET BY MOUTH (06:20)
[2024-10-10 06:33] LABS: Glucose Point of Care 107 mg/dl (65-105)
[2024-10-10] MEDS: LACTATED RINGERS 1,000 ML 150 ML IV CONT ×2 (07:42→15:16)
[2024-10-10 07:49] LABS: Troponin I 0.052 ng/mL (0.000-0.034)
--- NOTE | 2024-10-10 08:12 | P.PNIM_ITS ---
Progress Note: A&P Assessment and Plan (1) CHAD (acute kidney injury): Code(s): N17.9 - Acute kidney failure, unspecified Status: Acute Assessment and Plan: Nephrology on board Increase fluid hydration BMP in the morning nephrology consulted ordered CR/BUN 4.37/33 today -10/10 - CHAD most likely due to dehydration and hypotension LR stopped (due to metabolic acidosis), half normal slaine ordered monitor I/O (2) Constipation: Code(s): K59.00 - Constipation, unspecified Status: Acute Assessment and Plan: [place] (3) Diabetes: Code(s): E11.9 - Type 2 diabetes mellitus without complications Status: Acute Assessment and Plan: Accu-Cheks q.6 SSI Hold home diabetes medications hypoglycemia protocol in place BS reviewed and stable (4) Elevated liver enzymes: Code(s): R74.8 - Abnormal levels of other serum enzymes Status: Acute Assessment and Plan: GI was consulted notes reviewed: The patient's clinical presentation is not consistent with acute pancreatitis. Her primary issue appears to be a significant elevation of transaminases, which have notably decreased by almost half within 24 hours of fluid resuscitation. This is most compatible with ischemic hepatopathy, likely attributable to clinically silent, intermittent atrial fibrillation causing liver hypoperfusion. This also explains her extreme weakness, which persisted for over a week. Given that she doesn't have a clinical picture consistent with pancreatitis and her lipase levels have remained normal, the mild peripancreatic changes seen on imaging are considered nonspecific. Therefore, she can be started on oral feeds. We will also hold off on the MRCP that was initially ordered yesterday - Zosyn is d/c as it was started for consideration for cholangitis (5) Hypertension: Qualifiers: Hypertension type: unspecified Qualified Code(s): I10 - Essential (primary) hypertension Code(s): I10 - Essential (primary) hypertension Status: Acute Assessment and Plan: home emds on hold as hypotensive (6) CHF (congestive heart failure): Code(s): I50.9 - Heart failure, unspecified Status: Acute Assessment and Plan: Last echo 2021 ejection fraction 55-60% cardiology on board (7) Atrial fibrillation with RVR: Code(s): I48.91 - Unspecified atrial fibrillation Status: Acute Assessment and Plan: new onset of afib cardiology was consulted Secondary to acute stress of pancreatitis. Converted to sinus rhythm on diltiazem drip 5 mg an hour. Because patient is NPO we will continue diltiazem drip for today. We can transition to beta-gabriel p.o. when she is able to tolerate p.o.. Continue IV heparin tele monitoring Time Spent With Patient Time with patient: 25 - 35 minutes Subjective Date/time seen: 10/10/24 08:12 Interval history: 78-year-old female history of fatty liver, CAD, diabetes type 2, diverticulosis, hypertension hyperthyroid presents the hospital with generalized weakness. Patient states that she was so weak that she had trouble walking. She complains of nausea and vomiting and muscle pains. Of note, she recently was in the hospital for diverticulitis. In ed; Na 132, BUN of 30 creatinine of 4.24 with previous creatinine being 1.12, total bilirubin of 3.75 AST of 4607 ALT of 3007 alkaline phos of 2 UA shows noninfective urine 59, abdomen pelvis CT shows trace pericardial effusion, pulmonary nodule, mild phlegm a morales changes around the pancreas, mild stranding primary bile ducts and possible ileus. Patient was started on IV Zosyn, blood cultures pending, and schedule for MRCP tomorrow, GI on board. Last night around 2.40 am, she developed Afib with RVR (ekg was obtained)- no prior h/o afib. Was started on cardizem. ECHO was ordered,started on heparin drip. Pt is weak and feels tired. Nephrology consulted for CHAD, cardiology consulted Review of Systems Review of Systems: 12 systems were reviewed and are negativ e except for as per HPI. Exam Narrative: General: well appearing, appears stated age. HEENT: normocephalic, atraumatic. Mucous membranes moist. EOMI, PERRLA, bilateral sclera anicteric, no conjunctival injection. Neck supple without JVD, lymphadenopathy, or bruit. Respiratory: clear to ascultation bilaterally. No rales/rhonic/wheezes. Cardiovascular: afib with rvr overnight- converted this am, normal S1-S2 upon ascultation. No murmurs, rubs, or clicks. PMI is nondisplaced, capillary refill less than 3 second. Abdomen: Soft, round, no pulsatile masses, nondistended and nontender. No rebound, no guarding. No CVA tenderness, no hepatosplenomegaly. Bowel sounds present to all four quadrants. No high pitch or tinkling sounds, resonant to percussion. Extremities: No cyanosis, clubbing, or edema present. Pulses are palpable 2/2. Active ROM to all four extremities. Neuro: Alert and orientated x 4. PERRLA. Cranial nerves 2-12 intact without focal deficit. Skin: Warm, dry, and intact, without rash, erythema, or lesion. Psych: pleasant, cooperative, normal speech, normal affect, no hallucinations, no dysarthia Objective Data Vital Signs Vital Signs: Vital Signs - 24 hr 10/09/24 15:50 10/09/24 16:31 10/09/24 17:44 Temperature 98.3 F Pulse Rate 109 H 94 86 Respiratory Rate 21 H 11 L 21 H Blood Pressure 82/49 L 82/50 L 103/56 L Pulse Oximetry 95 98 99 Oxygen Delivery 10/09/24 18:16 10/09/24 19:54 10/09/24 20:00 Temperature 97.7 F Pulse Rate 87 85 84 Respiratory Rate 19 16 Blood Pressure 111/54 L 109/51 L Pulse Oximetry 97 99 Oxygen Delivery 10/09/24 20:10 10/09/24 22:00 10/10/24 00:00 Temperature Pulse Rate 90 98 Respiratory Rate Blood Pressure Pulse Oximetry Oxygen Delivery Room Air 10/10/24 00:15 10/10/24 00:15 10/10/24 01:08 Temperature 98.5 F Pulse Rate 99 133 H Respiratory Rate 18 Blood Pressure 114/65 Pulse Oximetry 94 Oxygen Delivery Room Air 10/10/24 02:00 10/10/24 02:44 10/10/24 03:54 Temperature Pulse Rate 138 H 119 H Respiratory Rate Blood Pressure 108/60 Pulse Oximetry Oxygen Delivery 10/10/24 04:00 10/10/24 04:00 10/10/24 04:00 Temperature 98.3 F Pulse Rate 122 H 127 H 127 H Respiratory Rate 16 Blood Pressure 100/44 L 100/64 Pulse Oximetry 98 Oxygen Delivery 10/10/24 04:00 10/10/24 06:00 10/10/24 06:00 Temperature Pulse Rate 93 93 Respiratory Rate Blood Pressure 111/49 L Pulse Oximetry Oxygen Delivery Room Air 10/10/24 06:00 10/10/24 07:50 Temperature 98.2 F Pulse Rate 93 87 Respiratory Rate 20 Blood Pressure 111/49 L 100/43 L Pulse Oximetry 94 Oxygen Delivery Intake/Output Intake/Output: Intake & Output 10/07/24 10/08/24 10/09/24 10/10/24 23:59 23:59 23:59 23:59 Intake Total 2152.1 1110.5 Output Total 0 Balance 2152.1 1110.5 Meds/Results Medications: Active Medications Generic Name Dose Route Start Last Admin Trade Name Freq PRN Reason Stop Dose Admin Acetaminophen 650 mg 10/09/24 19:59 Acetaminophen 325 Mg Tablet PO Q4H PRN Mild Pain (1-3) or Fever Aspirin 81 mg 10/10/24 09:00 Aspirin 81 Mg Enteric Tablet PO DAILY [facility] Dextrose 12.5 gm 10/09/24 20:02 Dextrose 50% 25 Gm/50 Ml Syringe IV PUSH PRN PRN Hypoglycemia Protocol Docusate Sodium 100 mg 10/10/24 09:00 Docusate Sodium 100 Mg Capsule PO BID [facility] Escitalopram Oxalate 20 mg 10/10/24 09:00 Escitalopram Oxalate 10 Mg Tablet PO DAILY [facility] Glucagon 1 mg 10/09/24 20:02 Glucagon For Inj 1 Mg Vial IM PRN PRN Hypoglycemia Protocol Glucose 15 gm 10/09/24 20:02 Glucose Oral Gel 15 Gm Of Glucse In 37.5 Gm Tube PO PRN PRN Hypoglycemia Protocol Heparin Sodium (Porcine) 5,500 units 10/10/24 02:45 Heparin Sodium 5,000 Units/Ml Vial IV PUSH PRN PRN aPTT less than 55 seconds Heparin Sodium (Porcine) 3,000 units 10/10/24 02:45 Heparin Sodium 5,000 Units/Ml Vial IV PUSH PRN PRN aPTT 55 - 70 seconds Hydromorphone HCl 0.5 mg 10/10/24 00:28 10/10/24 00:42 Hydromorphone Hcl Inj (*Crx) 2 Mg/Ml Vial IV PUSH 0.5 mg Q3H PRN Administration Pain Rated 7-10 Piperacillin Sod/Tazobactam Sod 2.25 gm in 50 mls @ 100 mls/hr 10/09/24 16:45 10/10/24 07:00 Zosyn 2.25 Gm/Ns 50 Ml IVPB Infused Q6HR JIGNA Infusion Dextrose 1,000 mls @ 100 mls/hr 10/09/24 20:02 Dextrose 5% 1,000 Ml IVPB PRN PRN Hypoglycemia Protocol Lactated Ringer's 1,000 mls @ 150 mls/hr 10/10/24 00:30 10/10/24 07:42 Lr - Lactated Ringers Iv IV CONT 150 mls/hr .[id number] JIGNA Administration Diltiazem HCl 100 mg in 100 mls @ 5 mls/hr 10/10/24 02:45 10/10/24 06:00 Cardizem 100 Mg/100 Ml IV CONT 5 mg/hr .Q20H JIGNA 5 mls/hr Infusion 5 MG/HR Heparin Sodium/Dextrose 25,000 units in 250 mls @ 13 mls/hr 10/10/24 02:45 10/10/24 03:47 Heparin Sodium/D5w 100 Units/Ml IV CONT 1,300 units/hr .[id number] JIGNA 13 mls/hr Administration Protocol 1,300 UNITS/HR Insulin Aspart 2 - 5 units 10/10/24 00:00 10/10/24 07:52 Insulin Aspart (*Bkc) 100 Units/Ml SUB-Q Not Given Q6HR [facility] Protocol Levothyroxine Sodium 125 mcg 10/10/24 06:30 10/10/24 06:20 Levothyroxine Sodium 125 Mcg Tablet BY MOUTH 125 mcg Q48H [facility] Administration Levothyroxine Sodium 150 mcg 10/11/24 06:30 Levothyroxine Sodium 150 Mcg Tablet PO Q48H [facility] Montelukast Sodium 10 mg 10/09/24 21:35 10/09/24 22:00 Montelukast Sodium 10 Mg Tablet BY MOUTH Not Given QHS [facility] Perflutren Lipid Microsphere 0 ml 10/10/24 02:47 Perflutren Lipid Microspheres 1.5 Ml Vial Diluted To 10 Ml Total Volume IV PUSH 10/13/24 02:47 ONCE PRN adequate visualization Protocol Radiology Results: ITS Impressions Abdomen/Pelvis CT 10/09/24 16:08 IMPRESSION: Trace pericardial effusion. Scattered calcified and noncalcified sub-6 mm pulmonary nodules, likely representing granulomas. Mild inflammatory change surrounding the pancreatic head and uncinate process, correlate for clinical findings of pancreatitis. Mild inflammatory stranding/edema in the proximal bile ducts, presumably related to the pancreatic process, noting that ascending cholangitis could appear similarly. Mild dilation of the third and fourth portions of the duodenum, presumably ileus related to the pancreatic process. Abdomen X-Ray 10/10/24 06:55 Impression: No acute abnormality is seen. Irregular markedly hyperdense opacity in the pelvis. Correlate for surgical/procedural history or traumatic history/foreign body. Labs Labs: Laboratory Results - last 24 hr 10/09/24 10/09/24 10/09/24 16:15 17:06 18:50 WBC 8.8 RBC 4.87 Hgb 13.4 Hct 42.3 MCV 86.9 MCH 27.5 MCHC 31.7 L RDW 14.7 H Plt Count 201 MPV 9.8 Immature Gran % (Auto) 0.6 H Neut % (Auto) 75.1 H Lymph % (Auto) 15.8 L [place] % (Auto) 6.3 Eos % (Auto) 1.4 Baso % (Auto) 0.8 Lymph # (Auto) 1.39 [place] # (Auto) 0.6 Eos # (Auto) 0.1 Baso # (Auto) 0.1 Abs Immat Gran (auto) 0.05 H Absolute Neuts (auto) 6.6 Absolute Nucleated RBC 0.000 Nucleated RBC % 0.0 ESR 15 PT 18.1 H INR 1.5 APTT 34.1 Sodium 132 L Potassium 4.3 Chloride 98 Carbon Dioxide 16 L Anion Gap 18 H BUN 30 H D Creatinine 4.24 H Estim Creat Clear Calc 10 Estimated GFR 10 L Glucose 94 POC Capillary Glucose Lactic Acid 7.5 H* 6.6 H* Calcium 8.8 Magnesium Total Bilirubin 3.7 H AST 4607 H ALT 3007 H Alkaline Phosphatase 259 H Total Creatine Kinase Troponin I C-Reactive Protein 2.2 H Total Protein 5.8 L Albumin 3.4 L Lipase 286 Procalcitonin 9.3 Urine Color Yellow Urine Appearance Cloudy H Urine pH 5.5 Ur Specific [place] 1.023 Urine Protein 3+ H Urine Glucose (UA) 3+ H Urine Ketones Trace H Ur Blood (Man) 1+ H Urine Nitrate Negative Urine Bilirubin Negative Urine Urobilinogen 0.2 Leukocyte Esterase Rfl Negative Urine RBC 0-2 Urine WBC 0-5 Ur Squamous Epith Cells Moderate Urine Bacteria None seen Urine Casts 0-2 10/09/24 10/10/24 10/10/24 20:27 00:17 00:53 WBC RBC Hgb Hct MCV MCH MCHC RDW Plt Count MPV Immature Gran % (Auto) Neut % (Auto) Lymph % (Auto) [place] % (Auto) Eos % (Auto) Baso % (Auto) Lymph # (Auto) [place] # (Auto) Eos # (Auto) Baso # (Auto) Abs Immat Gran (auto) Absolute Neuts (auto) Absolute Nucleated RBC Nucleated RBC % ESR PT INR APTT Sodium Potassium Chloride Carbon Dioxide Anion Gap BUN Creatinine Estim Creat Clear Calc Estimated GFR Glucose POC Capillary Glucose 83 84 Lactic Acid 3.9 H Calcium Magnesium 2.1 Total Bilirubin AST ALT Alkaline Phosphatase Total Creatine Kinase Troponin I C-Reactive Protein Total Protein Albumin Lipase Procalcitonin Urine Color Urine Appearance Urine pH Ur Specific [place] Urine Protein Urine Glucose (UA) Urine Ketones Ur Blood (Man) Urine Nitrate Urine Bilirubin Urine Urobilinogen Leukocyte Esterase Rfl Urine RBC Urine WBC Ur Squamous Epith Cells Urine Bacteria Urine Casts 10/10/24 10/10/24 10/10/24 00:53 03:41 03:41 WBC 9.8 RBC 4.14 L Hgb 11.6 L Hct 35.7 L MCV 86.2 MCH 28.0 MCHC 32.5 RDW 14.7 H Plt Count 169 MPV 9.9 Immature Gran % (Auto) 0.5 Neut % (Auto) 83.7 H Lymph % (Auto) 7.7 L [place] % (Auto) 6.3 Eos % (Auto) 1.2 Baso % (Auto) 0.6 Lymph # (Auto) 0.75 L [place] # (Auto) 0.6 Eos # (Auto) 0.1 Baso # (Auto) 0.1 Abs Immat Gran (auto) 0.05 H Absolute Neuts (auto) 8.2 H Absolute Nucleated RBC 0.000 Nucleated RBC % 0.0 ESR PT 17.0 H INR 1.4 APTT 32.7 Sodium 127 L Potassium 4.7 Chloride 98 Carbon Dioxide 18 L Anion Gap 11 BUN 33 H Creatinine 4.37 H Estim Creat Clear Calc 11 Estimated GFR 10 L Glucose 92 POC Capillary Glucose Lactic Acid 3.9 H Calcium 7.8 L Magnesium Cancelled Total Bilirubin 2.9 H AST 2353 H ALT 1836 H Alkaline Phosphatase 249 H Total Creatine Kinase 54 Troponin I 0.043 H* Cancelled C-Reactive Protein Total Protein 4.8 L Albumin 2.6 L Lipase 109 Procalcitonin Urine Color Urine Appearance Urine pH Ur Specific [place] Urine Protein Urine Glucose (UA) Urine Ketones Ur Blood (Man) Urine Nitrate Urine Bilirubin Urine Urobilinogen Leukocyte Esterase Rfl Urine RBC Urine WBC Ur Squamous Epith Cells Urine Bacteria Urine Casts 10/10/24 10/10/24 06:27 06:48 WBC RBC Hgb Hct MCV MCH MCHC RDW Plt Count MPV Immature Gran % (Auto) Neut % (Auto) Lymph % (Auto) [place] % (Auto) Eos % (Auto) Baso % (Auto) Lymph # (Auto) [place] # (Auto) Eos # (Auto) Baso # (Auto) Abs Immat Gran (auto) Absolute Neuts (auto) Absolute Nucleated RBC Nucleated RBC % ESR PT INR APTT Sodium Potassium Chloride Carbon Dioxide Anion Gap BUN Creatinine Estim Creat Clear Calc Estimated GFR Glucose POC Capillary Glucose 107 H Lactic Acid Calcium Magnesium Total Bilirubin AST ALT Alkaline Phosphatase Total Creatine Kinase Troponin I 0.052 H* D C-Reactive Protein Total Protein Albumin Lipase Procalcitonin Urine Color Urine Appearance Urine pH Ur Specific [place] Urine Protein Urine Glucose (UA) Urine Ketones Ur Blood (Man) Urine Nitrate Urine Bilirubin Urine Urobilinogen Leukocyte Esterase Rfl Urine RBC Urine WBC Ur Squamous Epith Cells Urine Bacteria Urine Casts Quality VTE Prophylaxis VTE prophylaxis: mechanical ordered
--- NOTE | 2024-10-10 08:53 | P.CONCA_ITS ---
Assessment and Plan Assessment and plan (1) Pancreatitis: Code(s): K85.90 - Acute pancreatitis without necrosis or infection, unspecified Status: Acute Plan -AFib with RVR,, new onset -acute pancreatitis. -transaminitis -acute kidney injury secondary to dehydration -recent diverticulitis September 2024 -history of coronary artery disease with 2 stents in [place] 2006 -history of hypertension -history of diabetes -history of hypothyroidism -in regards to atrial fibrillation with RVR, new onset. Secondary to acute stress of pancreatitis. Converted to sinus rhythm on diltiazem drip 5 mg an hour. Because patient is NPO we will continue diltiazem drip for today. We can transition to beta-gabriel p.o. when she is able to tolerate p.o.. Continue IV heparin. Obtain recent echo results from [place]. -in regards to history of coronary artery disease, denies chest pain. Troponins minimally elevated consistent with demand ischemia. No ACS. Continue aspirin. Unable to give statin given transaminitis. In regards to hypertension, hold all blood pressure medications given hypotension and acute kidney injury.. In regards to hypothyroidism, continue levothyroxine. L History of Present Illness History of Present Illness Consult date/time: Date of service 10/10/24 08:53 Requesting physician: Haley Villa APRN Consult reason: atrial fibrillation (New onset AFib with RVR) Reason For Visit: CHAD, Pancreatitis Narrative: This 78-year-old female with history of CAD with history of stents 2006 in [place], hypertension, hypothyroidism, diabetes who recently started to see Dr. Veloz on metformin, hyperlipidemia who presents to the hospital with generalized weakness, nausea, vomiting, could not walk. She stated for 1 week she was not eating or drinking. The day before admission she vomited twice. Denies diarrhea this time. Was in the hospital September 2024 for diverticulitis. The lower abdominal pain got worse. She still has lower abdominal pain. Denies chest pain, shortness of breath, lower extremity edema. She was noticed to be in AFib with RVR and therefore was started on diltiazem drip 5 mg an hour and IV heparin. She is receiving IV fluids for acute kidney injury. She converted sinus rhythm this morning. She remains NPO CT scan abdomen and pelvis suggestive of inflammation around the pancreatic head suggestive of pancreatitis. EKG reviewed and analyzed myself showed AFib with RVR with left bundle branch block and then repeat EKG showed sinus rhythm. Liver enzymes are severely elevated. Troponin 0.043, 0.052. Creatinine 4.37. Platelet count 169. Lipase 109 which is normal. Last echo 2021 ejection fraction 55-60%.(she reports recent echo in [place]) Review of Systems 2 Constitutional: Constitutional: Denies chills, Denies fever(s) and Reports poor appetite Eyes: Eyes: Denies eye discharge, Denies loss of vision and Denies eye pain ENT: Denies dizziness, Denies epistaxis, Denies nasal congestion and Denies sore throat Cardiovascular: Cardiovascular: Denies chest pain, Denies syncope, Denies pedal edema, Denies leg edema, Denies palpitations, Denies dyspnea, Denies dyspnea on exertion and Denies orthopnea Respiratory: Respiratory: Denies cough, Denies dyspnea, Denies dyspnea on exertion and Denies wheezing Gastrointestinal: Gastrointestinal: Reports abdominal pain, Reports diarrhea, Reports nausea and Reports vomiting Genitourinary: Genitourinary: Denies hematuria, Denies genital lesions and Denies dysuria Musculoskeletal: Musculoskeletal: Denies arthralgias, Denies joint swelling and Denies numbness Integumentary/Breasts: Skin/Breast: Denies pruritus and Denies rash Neurologic: Reports dizziness, Denies syncope, Denies loss of vision and Denies numbness Psychiatric: Psychiatric: Denies anxiety and Denies depression Endocrine: Endocrine: Denies cold intolerance, Denies heat intolerance and Denies palpitations Hematologic/Lymphatic: Hematologic/Lymphatic: Denies easy bleeding and Denies easy bruising Allergic/Immunologic: Allergic/Immunologic: Denies urticaria and Denies wheezing [facility] Past Medical History Medical History Pancreatitis BMI 25.0-25.9,adult BMI 31.0-31.9,adult BMI 26.0-26.9,adult BMI 27.0-27.9,adult Diastolic heart failure Diverticulitis BMI 29.0-29.9,adult Fatty liver Olecranon bursitis of left elbow Chronic back pain Suspected chronic obstructive pulmonary disease based on initial evaluation Pneumonia Asthma exacerbation in COPD Thyroid cancer Coronary artery disease [place] in 2010 status post stent x2. Polymyalgia rheumatica Left bundle branch block Degenerative joint disease Type 2 diabetes mellitus Fibromyalgia Hypertension Hypothyroidism Familial tremor Anxiety with depression Vitamin D deficiency Hyperlipidemia Hearing loss Orthostatic hypotension Surgical History Surgical History History of epidermal inclusion cyst excision Left neck. History of hysterectomy History of coronary artery stent placement History of cholecystectomy History of partial thyroidectomy History of colonoscopy with polypectomy History of breast biopsy Family History Family History Grandparent Diabetes mellitus Mother Hypertension Heart disease Ovarian cancer Father Malignant neoplasm of prostate Cerebrovascular accident Daughter Breast cancer Social History Social History Social History: Surrogate medical decision maker: Allen Elisha, spouse. Code status: Full code. Smoking packs per day: 1 Smoking cigarettes per day: 20.0 Smoking status: Former smoker Tobacco type: cigarettes Second hand tobacco smoke exposure: Yes Smoking end date: 02/24/99 Alcohol intake: never Substance use: current Substance use type: marijuana Other substance usage details: tea Last use: 8 mos ago Do You Feel Safe in your Home?: Yes Lack of Transportation: No Lack of Food: Never True Current Housing: I Have Housing Concerned About Future Housing: No Difficulty Paying Gas/Electric Bills: No Difficulty Paying for Meds: No Currently Unemployed: No Education: Trade/Vocational Certificate Difficulty w/ Childcare or Family Care: No Living arrangements: with family Additional living arrangements comments: Lives in [place] with spouse. Spiritual care concerns: No Meds Home Medications and Allergies Home Medications ?Medication ?Instructions ?Recorded ?Confirmed ?Type aspirin 81 mg tablet,delayed 81 mg PO DAILY 03/09/19 10/09/24 History release (Adult Low Dose Aspirin) cyanocobalamin (vitamin B-12) 1,000 mcg PO QPM 10/25/20 10/09/24 History 1,000 mcg tablet (Vitamin B-12) ascorbic acid (vitamin C) 1,000 mg 1 g PO QPM 10/03/21 10/09/24 History tablet cholecalciferol (vitamin D3) 25 2,000 unit PO DAILY 01/26/22 10/09/24 History mcg (1,000 unit) tablet omega-3 fatty acids 1,000 mg 1,000 mg PO QPM 01/26/22 10/09/24 History capsule turmeric 1,000 mg BYMOUTH DAILY 01/26/22 10/09/24 History biotin 300 mcg tablet 300 mg BYMOUTH DAILY 02/23/24 10/09/24 History Folate 1,330 mg PO DAILY 03/15/24 10/09/24 History calcium 600 mg capsule 1,200 mg PO HS 03/15/24 10/09/24 History calcium polycarbophil 625 mg 625 mg PO DAILY 03/15/24 10/09/24 History tablet (Fiber (calcium polycarbophil)) escitalopram oxalate 20 mg tablet See Rx Instructions .Route 05/19/24 10/09/24 Rx .COMPLEX #90 tabs levothyroxine 150 mcg tablet 150 mcg PO EVERY OTHER DAY #45 tabs 06/14/24 10/09/24 Rx losartan 50 mg tablet 50 mg PO DAILY #90 tabs 06/17/24 10/09/24 Rx levothyroxine 125 mcg tablet See Rx Instructions .Route 07/05/24 10/09/24 Rx .COMPLEX #90 tabs montelukast 10 mg tablet See Rx Instructions .Route 07/09/24 10/09/24 Rx .COMPLEX #90 tabs rosuvastatin 40 mg tablet See Rx Instructions .Route 07/09/24 10/09/24 Rx .COMPLEX #90 tabs metformin 500 mg tablet,extended See Rx Instructions .Route 08/16/24 10/09/24 Rx release 24 hr .COMPLEX #360 tabs empagliflozin 25 mg tablet 25 mg PO DAILY #90 tabs 09/06/24 10/09/24 Rx (Jardiance) linagliptin 5 mg tablet (Tradjenta) 5 mg PO QAM #90 tabs 09/06/24 10/09/24 Rx levofloxacin 750 mg tablet 750 mg PO Q24H 10/09/24 10/09/24 History metronidazole 500 mg tablet 500 mg PO Q8H 10/09/24 10/09/24 History Allergies Allergy/AdvReac Type Severity Reaction Status Date / Time adhesive tape Allergy Intermediate Rash Verified 10/09/24 17:46 Iodinated Contrast Media Allergy Mild Hives Verified 10/09/24 17:46 iodine Allergy Unknown Hives Verified 10/09/24 17:46 codeine AdvReac Unknown Hallucinati Verified 10/09/24 17:46 ng morphine AdvReac Unknown Hallucinati Verified 10/09/24 17:46 ng Vital Signs Vital Signs - 24 hr 10/09/24 15:50 10/09/24 16:31 10/09/24 17:44 Temperature 36.8 C Pulse Rate 109 H 94 86 Respiratory Rate 21 H 11 L 21 H Blood Pressure 82/49 L 82/50 L 103/56 L Pulse Oximetry 95 98 99 Oxygen Delivery 10/09/24 18:16 10/09/24 19:54 10/09/24 20:00 Temperature 36.5 C Pulse Rate 87 85 84 Respiratory Rate 19 16 Blood Pressure 111/54 L 109/51 L Pulse Oximetry 97 99 Oxygen Delivery 10/09/24 20:10 10/09/24 22:00 10/10/24 00:00 Temperature Pulse Rate 90 98 Respiratory Rate Blood Pressure Pulse Oximetry Oxygen Delivery Room Air 10/10/24 00:15 10/10/24 00:15 10/10/24 01:08 Temperature 36.9 C Pulse Rate 99 133 H Respiratory Rate 18 Blood Pressure 114/65 Pulse Oximetry 94 Oxygen Delivery Room Air 10/10/24 02:00 10/10/24 02:44 10/10/24 03:54 Temperature Pulse Rate 138 H 119 H Respiratory Rate Blood Pressure 108/60 Pulse Oximetry Oxygen Delivery 10/10/24 04:00 10/10/24 04:00 10/10/24 04:00 Temperature 36.8 C Pulse Rate 122 H 127 H 127 H Respiratory Rate 16 Blood Pressure 100/44 L 100/64 Pulse Oximetry 98 Oxygen Delivery 10/10/24 04:00 10/10/24 06:00 10/10/24 06:00 Temperature Pulse Rate 93 93 Respiratory Rate Blood Pressure 111/49 L Pulse Oximetry Oxygen Delivery Room Air 10/10/24 06:00 10/10/24 07:50 Temperature 36.8 C Pulse Rate 93 87 Respiratory Rate 20 Blood Pressure 111/49 L 100/43 L Pulse Oximetry 94 Oxygen Delivery Exam 2 Const: General: cooperative, comfortable, no acute distress, alert, awake and well nourished Nutritional Appearance: well nourished O rientation/consciousness: patient oriented x3 HENMT: Head: normal to inspection, normocephalic and atraumatic Ears: h earing grossly normal bilaterally Face/Nose/Sinus: Normal external nose present, Normal nares present, no nasal discharge noted, normal facial exam and No erythema Face and sinus: normal facial exam and no erythema Mouth: No drooling and No restricted motion Throat: uvula midline Eyes: General: appearance normal, both eyes and all related structures A lignment and Position: position normal Conjunctivae: conjunctivae normal S clera: sclerae normal Direct Ophthalmoscopy: No photophobia Neck: Neck: normal visual inspection and no JVD Thyroid: thyroid normal Carotids: no bruits Lymphatic: lymphedema not noted Chest: Chest palpation & inspection: normal inspection of the chest and no tenderness Resp: Effort & Inspection: normal respiratory effort and no nasal flaring A uscultation: clear to auscultation bilaterally, no crackles, no rales and no wheezes Cardio: Jugular venous distension: no JVD Rate: regular rate Rhythm: r egular rhythm Heart sounds: S1 normal heart sound present, S2 normal heart sound present, no gallops, no murmurs and no rubs GI: Inspection: non-distended GI Palp: Yes abdominal tenderness and No Soft to palpation Auscultation: normal bowel sounds Rectal Exam: deferred : General: No no CVA tenderness Back/Spine/Pelvis: Back: No no CVA tenderness Cervical Spine: cervical ROM normal Skin: General skin exam: normal color and rashes and/or lesions noted Neuro: General: patient oriented x3 Speech: normal speech Motor exam (neuro): no tremors Extrem: General: normal to inspection and pedal edema present Psych: Appearance: grossly normal and well kempt Speech and movement: N ormal speech and movement present Affect: normal affect Results Labs and Meds 10/10/24 03:41 10/10/24 03:41 Lab results: Cardiac Enzymes 10/09/24 10/10/24 10/10/24 Range/Units 16:15 03:41 03:41 AST 4607 H 2353 H (14-36) U/L Troponin I 0.043 H* Cancelled (0.000-0.034) ng/mL 10/10/24 Range/Units 06:48 AST (14-36) U/L Troponin I 0.052 H* D (0.000-0.034) ng/mL Coagulation 10/09/24 10/10/24 Range/Units 16:15 03:41 PT 18.1 H 17.0 H (11.1-14.7) Seconds APTT 34.1 32.7 (22.3-36.8) Seconds CBC 10/09/24 10/10/24 Range/Units 16:15 03:41 WBC 8.8 9.8 (4.5-10.0) K/mm3 RBC 4.87 4.14 L (4.2-5.4) M/mm3 Hgb 13.4 11.6 L (12.0-15.0) g/dL Hct 42.3 35.7 L (37.0-47.0) % Plt Count 201 169 (150-375) k/mm3 Lymph # (Auto) 1.39 0.75 L (0.9-3.2) K/mm3 [place] # (Auto) 0.6 0.6 (0.1-0.6) K/mm3 Eos # (Auto) 0.1 0.1 (0-0.3) K/mm3 Baso # (Auto) 0.1 0.1 (0.0-0.1) K/mm3 Comprehensive Metabolic Panel 10/09/24 10/10/24 Range/Units 16:15 03:41 Sodium 132 L 127 L (137-145) mmol/L Potassium 4.3 4.7 (3.4-5.0) mmol/L Chloride 98 98 (98-107) mmol/L Carbon Dioxide 16 L 18 L (22-30) mmol/L BUN 30 H D 33 H (7-17) mg/dL Creatinine 4.24 H 4.37 H (0.7-1.0) mg/dL Glucose 94 92 (65-110) mg/dL Calcium 8.8 7.8 L (8.4-10.2) mg/dL AST 4607 H 2353 H (14-36) U/L ALT 3007 H 1836 H (6-35) U/L Alkaline Phosphatase 259 H 249 H (38-126) U/L Total Protein 5.8 L 4.8 L (6.3-8.2) g/dL Albumin 3.4 L 2.6 L (3.5-5.1) g/dL Intake and Output 10/09/24 10/10/24 10/10/24 23:59 07:59 15:59 Intake Total 2152.1 1110.5 Output Total 0 Balance 2152.1 1110.5 Intake: IV 2152.1 1110.5 Lactated Ringers 1,000 ml @ 150 2102.1 1000 mls/hr IV CONT .Q6H40M COUNT INCLUDES THE [facility] Rx# :[id number] dilTIAZem 100 MG/100 ML 100 mg 10.5 In 100 ml @ 5 MG/HR 5 mls/hr IV CONT .Q20H JIGNA Rx#:[id number] Piperacillin/Henok 2.25G/Ns 50Ml 50 100 2.25 gm In 50 ml @ 100 mls/hr IVPB Q6HR COUNT INCLUDES THE [facility] Rx#:[id number] Oral 0 Output: Urine 0 Patient Weight 10/10/24 23:59 Weight 81.6 kg
--- NOTE | 2024-10-10 09:29 | P.CONNP_ITS ---
Assessment and Plan Assessment and plan (1) CHAD (acute kidney injury): Code(s): N17.9 - Acute kidney failure, unspecified Status: Acute Assessment and Plan: Allyson has acute kidney injury. Her creatinine has been up and down over the years but generally never above 0.6 at the most. Now she is in the hospital with pancreatitis, nausea vomiting and dehydration, and poor urine output. She looks dry on exam in addition her blood pressure was low on admission at 82/40 and could have been that way for a day or so. Most likely the patient has acute kidney injury due to low blood pressure and dehydration as well as pancreatitis. She does have elevated liver enzymes as well. Possibly she just passed a stone which have cause the pancreatitis. Or possibly the shock is what caused her liver enzymes to rise. Will check an LDH to see if that is very high compared to the other which might speak in favor of shock liver liver. Other causes would include obstruction(however the CT scan did not show this), glomerulonephritis, interstitial nephritis(the patient was on antibiotics last admission), or rhabdomyolysis(elevated liver enzymes can be caused by rhabdo however not the elevated bilirubin). Infiltrative diseases could cause this as we but it would be unlikely on this short a duration. (2) Pancreatitis: Code(s): K85.90 - Acute pancreatitis without necrosis or infection, unspecified Status: Acute Assessment and Plan: Patient's lipase is normal but the pancreas is elevated on CT scan. Hospitalist to manage this aspect of her care (3) Diabetes: Code(s): E11.9 - Type 2 diabetes mellitus without complications Status: Acute Assessment and Plan: The patient is on insulin sliding scale. Hospitalists to manage this (4) Metabolic acidosis: Code(s): E87.20 - Acidosis, unspecified Status: Acute Assessment and Plan: The patient has metabolic acidosis. Bicarbonate level was only 16 in the emergency room delta anion gap was the same as the delta bicarb. Her lactic acid level was only 3.9 so some of the delta anion gap is probably due to uremic toxins. She does have ketones in the urine as well so we can check a BHOB. I suspect the major issues with the metabolic acidosis are related to her pancreatitis. She was on metformin as well. This could cause a lactic acidosis. Her CO2 is improved. Will check another tomorrow Because it is a lactic acidosis will change fluids to half-normal saline with some bicarb as her body may not be able to tolerate the lactate in the LR as well in the presence of the lactic acidosis (5) CHF (congestive heart failure): Code(s): I50.9 - Heart failure, unspecified Status: Acute Assessment and Plan: Her echo showed grade 1 diastolic dysfunction in 2021. Volume status looks okay. (6) Hypertension: Qualifiers: Hypertension type: unspecified Qualified Code(s): I10 - Essential (primary) hypertension Code(s): I10 - Essential (primary) hypertension Status: Acute Assessment and Plan: Blood pressure was low. Her antihypertensives are on hold. (7) Elevated liver enzymes: Code(s): R74.8 - Abnormal levels of other serum enzymes Status: Acute Assessment and Plan: Her liver enzymes are elevated. Will check another set tomorrow History of Present Illness Reason for Consult Consult date: 10/10/24 Chief Complaint Chief complaint: CHAD, Pancreatitis History of Present Illness Narrative: Allyson is a very pleasant 78-year-old lady who has multiple medical problems including recent diverticulitis, polymyalgia rheumatica, diabetes, hypertension, vitamin-D deficiency, fatty liver, COPD, coronary disease status post stents x2, thyroid cancer, anxiety, depression, hyperlipidemia. Patient was recently in the hospital with diverticulitis. This is treated with antibiotics and improved. She says she was well until a couple of days before admission when she developed the a vomiting and abdominal the pain of the diverticulitis was lower abdominal. The pain for this is a little bit higher more periumbilical. There is some pain in her back as well. The patient did not have diarrhea. No fever blood in the vomit. Pain continued for a couple of days. She did not eat or drink anything. She has not made much urine at all over the last couple of days. Then she felt extremely weak and so came to the ER complaining of weakness. The patient had evaluation done in the ER. CT scan showed inflammation of the pancreas. Her lipase was normal. Troponins were mildly elevated. Liver enzymes are very high over 1999 and her lactic acid level was high as well. She was admitted, given IV fluids, made NPO. The patient says that her pain is about the same today as it was yesterday. Her creatinine was elevated on admission; it was 1.1 to but in the ER, was up to 4.24 and today is up to 4.37 so renal consultation was requested.Patient has not had any bloody urine, foamy urine, kidney stones, or bladder infections. No pain with urination She is getting LR at 150. Review of Systems 2 Constitutional: Constitutional: Reports no additional constitutional complaints Eyes: Eyes: Reports no additional eye complaints ENT: Reports system reviewed and no additional complaints, except as documented Cardiovascular: Cardiovascular: Reports no additional cardiovascular complaints Respiratory: Respiratory: Reports no additional respiratory complaints Gastrointestinal: Gastrointestinal: Reports no additional gastrointestinal complaints Genitourinary: Genitourinary: Reports no additional female genitourinary complaints Musculoskeletal: Musculoskeletal: Reports no additional musculoskeletal complaints Integumentary/Breasts: Skin/Breast: Reports system reviewed and no additional complaints, except as docu Neurologic: Reports system reviewed and no additional complaints, except as documented Psychiatric: Psychiatric: Reports no additional psychiatric complaints Endocrine: Endocrine: Reports no additional endocrine complaints PMFSH Past Medical History Medical History Pancreatitis BMI 25.0-25.9,adult BMI 26.0-26.9,adult BMI 27.0-27.9,adult Diastolic heart failure Diverticulitis BMI 29.0-29.9,adult Fatty liver BMI 31.0-31.9,adult Olecranon bursitis of left elbow Chronic back pain Suspected chronic obstructive pulmonary disease based on initial evaluation Pneumonia Asthma exacerbation in COPD Thyroid cancer Coronary artery disease [place] in 2010 status post stent x2. Polymyalgia rheumatica Left bundle branch block Degenerative joint disease Type 2 diabetes mellitus Fibromyalgia Hypertension Hypothyroidism Familial tremor Anxiety with depression Vitamin D deficiency Hyperlipidemia Hearing loss Orthostatic hypotension Surgical History Surgical History History of epidermal inclusion cyst excision Left neck. History of hysterectomy History of coronary artery stent placement History of cholecystectomy History of partial thyroidectomy History of colonoscopy with polypectomy History of breast biopsy Family History Family History Grandparent Diabetes mellitus Mother Hypertension Heart disease Ovarian cancer Father Malignant neoplasm of prostate Cerebrovascular accident Daughter Breast cancer Social History Social History Social History: Surrogate medical decision maker: Allen Tello, spouse. Code status: Full code. Smoking packs per day: 1 Smoking cigarettes per day: 20.0 Smoking status: Former smoker Tobacco type: cigarettes Second hand tobacco smoke exposure: Yes Smoking end date: 02/24/99 Alcohol intake: never Substance use: current Substance use type: marijuana Other substance usage details: tea Last use: 8 mos ago Do You Feel Safe in your Home?: Yes Lack of Transportation: No Lack of Food: Never True Current Housing: I Have Housing Concerned About Future Housing: No Difficulty Paying Gas/Electric Bills: No Difficulty Paying for Meds: No Currently Unemployed: No Education: Trade/Vocational Certificate Difficulty w/ Childcare or Family Care: No Living arrangements: with family Additional living arrangements comments: Lives in [place] with spouse. Spiritual care concerns: No Meds Home Medications and Allergies Home Medications ?Medication ?Instructions ?Recorded ?Confirmed ?Type aspirin 81 mg tablet,delayed 81 mg PO DAILY 03/09/19 10/09/24 History release (Adult Low Dose Aspirin) cyanocobalamin (vitamin B-12) 1,000 mcg PO QPM 10/25/20 10/09/24 History 1,000 mcg tablet (Vitamin B-12) ascorbic acid (vitamin C) 1,000 mg 1 g PO QPM 10/03/21 10/09/24 History tablet cholecalciferol (vitamin D3) 25 2,000 unit PO DAILY 01/26/22 10/09/24 History mcg (1,000 unit) tablet omega-3 fatty acids 1,000 mg 1,000 mg PO QPM 01/26/22 10/09/24 History capsule turmeric 1,000 mg BYMOUTH DAILY 01/26/22 10/09/24 History biotin 300 mcg tablet 300 mg BYMOUTH DAILY 02/23/24 10/09/24 History Folate 1,330 mg PO DAILY 03/15/24 10/09/24 History calcium 600 mg capsule 1,200 mg PO HS 03/15/24 10/09/24 History calcium polycarbophil 625 mg 625 mg PO DAILY 03/15/24 10/09/24 History tablet (Fiber (calcium polycarbophil)) escitalopram oxalate 20 mg tablet See Rx Instructions .Route 05/19/24 10/09/24 Rx .COMPLEX #90 tabs levothyroxine 150 mcg tablet 150 mcg PO EVERY OTHER DAY #45 tabs 06/14/24 10/09/24 Rx losartan 50 mg tablet 50 mg PO DAILY #90 tabs 06/17/24 10/09/24 Rx levothyroxine 125 mcg tablet See Rx Instructions .Route 07/05/24 10/09/24 Rx .COMPLEX #90 tabs montelukast 10 mg tablet See Rx Instructions .Route 07/09/24 10/09/24 Rx .COMPLEX #90 tabs rosuvastatin 40 mg tablet See Rx Instructions .Route 07/09/24 10/09/24 Rx .COMPLEX #90 tabs metformin 500 mg tablet,extended See Rx Instructions .Route 08/16/24 10/09/24 Rx release 24 hr .COMPLEX #360 tabs empagliflozin 25 mg tablet 25 mg PO DAILY #90 tabs 09/06/24 10/09/24 Rx (Jardiance) linagliptin 5 mg tablet (Tradjenta) 5 mg PO QAM #90 tabs 09/06/24 10/09/24 Rx levofloxacin 750 mg tablet 750 mg PO Q24H 10/09/24 10/09/24 History metronidazole 500 mg tablet 500 mg PO Q8H 10/09/24 10/09/24 History Allergies Allergy/AdvReac Type Severity Reaction Status Date / Time adhesive tape Allergy Intermediate Rash Verified 10/09/24 17:46 Iodinated Contrast Media Allergy Mild Hives Verified 10/09/24 17:46 iodine Allergy Unknown Hives Verified 10/09/24 17:46 codeine AdvReac Unknown Hallucinati Verified 10/09/24 17:46 ng morphine AdvReac Unknown Hallucinati Verified 10/09/24 17:46 ng Vital Signs Vital Signs - 24 hr 10/09/24 15:50 10/09/24 16:31 10/09/24 17:44 Temperature 98.3 F Pulse Rate 109 H 94 86 Respiratory Rate 21 H 11 L 21 H Blood Pressure 82/49 L 82/50 L 103/56 L Pulse Oximetry 95 98 99 Oxygen Delivery 10/09/24 18:16 10/09/24 19:54 10/09/24 20:00 Temperature 97.7 F Pulse Rate 87 85 84 Respiratory Rate 19 16 Blood Pressure 111/54 L 109/51 L Pulse Oximetry 97 99 Oxygen Delivery 10/09/24 20:10 10/09/24 22:00 10/10/24 00:00 Temperature Pulse Rate 90 98 Respiratory Rate Blood Pressure Pulse Oximetry Oxygen Delivery Room Air 10/10/24 00:15 10/10/24 00:15 10/10/24 01:08 Temperature 98.5 F Pulse Rate 99 133 H Respiratory Rate 18 Blood Pressure 114/65 Pulse Oximetry 94 Oxygen Delivery Room Air 10/10/24 02:00 10/10/24 02:44 10/10/24 03:54 Temperature Pulse Rate 138 H 119 H Respiratory Rate Blood Pressure 108/60 Pulse Oximetry Oxygen Delivery 10/10/24 04:00 10/10/24 04:00 10/10/24 04:00 Temperature 98.3 F Pulse Rate 122 H 127 H 127 H Respiratory Rate 16 Blood Pressure 100/44 L 100/64 Pulse Oximetry 98 Oxygen Delivery 10/10/24 04:00 10/10/24 06:00 10/10/24 06:00 Temperature Pulse Rate 93 93 Respiratory Rate Blood Pressure 111/49 L Pulse Oximetry Oxygen Delivery Room Air 10/10/24 06:00 10/10/24 07:50 Temperature 98.2 F Pulse Rate 93 87 Respiratory Rate 20 Blood Pressure 111/49 L 100/43 L Pulse Oximetry 94 Oxygen Delivery Exam 2 Narrative: Exam Narrative: Well developed well-nourished female in no acute distress Skin is warm and dry without rash Head normocephalic atraumatic Eyes normal sclerae and conjunctivae Mouth normal lips teeth and gums. Mucous membranes are dry. Neck no nodes no thyromegaly no carotid bruits Axillae no nodes Back no CVA tenderness Lungs symmetric and clear to auscultation and percussion Heart regular rate and rhythm without rub or gallop Abdomen bowel sounds positive soft diffuse tender without guarding, no HSM, masses, or bruits. Extremities no cyanosis, clubbing, or edema Pulses 2+ equal in radial arteries Psychological not anxious or depressed Neuro alert and oriented x3 motor 5/5 cranial nerves 2-12 intact reflexes 2+ and equal in the biceps and patellar tendons cerebellar normal rapid alternating movements Results Lab Results 10/10/24 03:41 10/10/24 03:41 Lab results: Most recent lab results Calcium 7.8 mg/dL (8.4-10.2) L 10/10/24 03:41 Magnesium 2.1 mg/dL (1.6-2.3) 10/10/24 00:53 Magnesium Cancelled 10/10/24 00:53
[2024-10-10 10:28] LABS: Lactic Acid Reflex 1.4 mmol/L (0.7-2.0)
[2024-10-10 10:38] LABS: Beta-Hydroxybutyrate/Acetoacetate 1.07 mmol/L (0.02-0.27)
[2024-10-10 10:43] LABS: Partial Thromboplastin Time > 200.0 Seconds (22.3-36.8)
[2024-10-10 11:00] LABS: Troponin I 0.071 ng/mL (0.000-0.034)
--- NOTE | 2024-10-10 11:23 | P.CONGI_ITS ---
Assessment and Plan Assessment and plan (1) Elevated LFTs: Code(s): R79.89 - Other specified abnormal findings of blood chemistry Status: Acute Assessment and Plan: The patient's clinical presentation is not consistent with acute pancreatitis. Her primary issue appears to be a significant elevation of transaminases, which have notably decreased by almost half within 24 hours of fluid resuscitation. This is most compatible with ischemic hepatopathy, likely attributable to clinically silent, intermittent atrial fibrillation causing liver hypoperfusion. This also explains her extreme weakness, which persisted for over a week. However, her creatinine has not improved as expected, and she will require continued monitoring. A nephrology consultation may be warranted if this persists despite ongoing fluid resuscitation. Given that she doesn't have a clinical picture consistent with pancreatitis and her lipase levels have remained normal, the mild peripancreatic changes seen on imaging are considered nonspecific. Therefore, she can be started on oral feeds. We will also hold off on the MRCP that was initially ordered yesterday. GI Consult Note Consult date/time: 10/10/24 11:23 HPI: Allyson Tello is a 78-year-old female with a history of coronary artery disease, diabetes, and steatotic liver disease. She recently completed a 7-day outpatient course of metronidazole and levofloxacin for diverticulitis. Following the antibiotic course, she experienced progressive weakness, lack of appetite, nausea, and worsening left lower quadrant discomfort, similar to her initial diverticulitis symptoms. She denied severe epigastric pain and was brought to the emergency room for these complaints. Upon arrival, her labs were: white count 8.8, hemoglobin 13.4, platelet count 201, INR 1.5, total bilirubin 2.9, AST 4607, ALT 3007, alkaline phosphatase 149, creatinine 4.37, and BUN 33. A CT scan of the abdomen showed an absent gallbladder from prior surgery, a common bile duct of 10 mm (considered chronic), and mild stranding around the pancreatic head and uncinate process. Her lipase level was 286, which is normal. Early this morning, around 2:00 a.m., she developed hypotension and was found to have atrial fibrillation with rapid ventricular response and lactic acidosis. A Cardizem drip was initiated, and she converted to sinus rhythm. A heparin drip was also started for CVA prevention. Upon further questioning, the patient denies any clinical picture consistent with acute pancreatitis, such as severe epigastric or right upper quadrant pain. Review of Systems 2 Review of Systems: All systems reviewed & are unremarkable except as noted in HPI and below PMFSH Past Medical History Medical History (Updated 10/10/24 @ 11:29 by Brett Crane MD) Pancreatitis BMI 25.0-25.9,adult BMI 31.0-31.9,adult BMI 26.0-26.9,adult BMI 27.0-27.9,adult Diastolic heart failure Diverticulitis BMI 29.0-29.9,adult Fatty liver Olecranon bursitis of left elbow Chronic back pain Suspected chronic obstructive pulmonary disease based on initial evaluation Pneumonia Asthma exacerbation in COPD Thyroid cancer Coronary artery disease [place] in 2010 status post stent x2. Polymyalgia rheumatica Left bundle branch block Degenerative joint disease Type 2 diabetes mellitus Fibromyalgia Hypertension Hypothyroidism Familial tremor Anxiety with depression Vitamin D deficiency Hyperlipidemia Hearing loss Orthostatic hypotension Surgical History Surgical History History of epidermal inclusion cyst excision Left neck. History of hysterectomy History of coronary artery stent placement History of cholecystectomy History of partial thyroidectomy History of colonoscopy with polypectomy History of breast biopsy Family History Family History Grandparent Diabetes mellitus Mother Hypertension Heart disease Ovarian cancer Father Malignant neoplasm of prostate Cerebrovascular accident Daughter Breast cancer Social History Social History Social History: Surrogate medical decision maker: Allen Tello, spouse. Code status: Full code. Smoking packs per day: 1 Smoking cigarettes per day: 20.0 Smoking status: Former smoker Tobacco type: cigarettes Second hand tobacco smoke exposure: Yes Smoking end date: 02/24/99 Alcohol intake: never Substance use: current Substance use type: marijuana Other substance usage details: tea Last use: 8 mos ago Do You Feel Safe in your Home?: Yes Lack of Transportation: No Lack of Food: Never True Current Housing: I Have Housing Concerned About Future Housing: No Difficulty Paying Gas/Electric Bills: No Difficulty Paying for Meds: No Currently Unemployed: No Education: Trade/Vocational Certificate Difficulty w/ Childcare or Family Care: No Living arrangements: with family Additional living arrangements comments: Lives in [place] with spouse. Spiritual care concerns: No Meds Home Medications and Allergies Home Medications ?Medication ?Instructions ?Recorded ?Confirmed ?Type aspirin 81 mg tablet,delayed 81 mg PO DAILY 03/09/19 10/09/24 History release (Adult Low Dose Aspirin) cyanocobalamin (vitamin B-12) 1,000 mcg PO QPM 10/25/20 10/09/24 History 1,000 mcg tablet (Vitamin B-12) ascorbic acid (vitamin C) 1,000 mg 1 g PO QPM 10/03/21 10/09/24 History tablet cholecalciferol (vitamin D3) 25 2,000 unit PO DAILY 01/26/22 10/09/24 History mcg (1,000 unit) tablet omega-3 fatty acids 1,000 mg 1,000 mg PO QPM 01/26/22 10/09/24 History capsule turmeric 1,000 mg BYMOUTH DAILY 01/26/22 10/09/24 History biotin 300 mcg tablet 300 mg BYMOUTH DAILY 02/23/24 10/09/24 History Folate 1,330 mg PO DAILY 03/15/24 10/09/24 History calcium 600 mg capsule 1,200 mg PO HS 03/15/24 10/09/24 History calcium polycarbophil 625 mg 625 mg PO DAILY 03/15/24 10/09/24 History tablet (Fiber (calcium polycarbophil)) escitalopram oxalate 20 mg tablet See Rx Instructions .Route 05/19/24 10/09/24 Rx .COMPLEX #90 tabs levothyroxine 150 mcg tablet 150 mcg PO EVERY OTHER DAY #45 tabs 06/14/24 10/09/24 Rx losartan 50 mg tablet 50 mg PO DAILY #90 tabs 06/17/24 10/09/24 Rx levothyroxine 125 mcg tablet See Rx Instructions .Route 07/05/24 10/09/24 Rx .COMPLEX #90 tabs montelukast 10 mg tablet See Rx Instructions .Route 07/09/24 10/09/24 Rx .COMPLEX #90 tabs rosuvastatin 40 mg tablet See Rx Instructions .Route 07/09/24 10/09/24 Rx .COMPLEX #90 tabs metformin 500 mg tablet,extended See Rx Instructions .Route 08/16/24 10/09/24 Rx release 24 hr .COMPLEX #360 tabs empagliflozin 25 mg tablet 25 mg PO DAILY #90 tabs 09/06/24 10/09/24 Rx (Jardiance) linagliptin 5 mg tablet (Tradjenta) 5 mg PO QAM #90 tabs 09/06/24 10/09/24 Rx levofloxacin 750 mg tablet 750 mg PO Q24H 10/09/24 10/09/24 History metronidazole 500 mg tablet 500 mg PO Q8H 10/09/24 10/09/24 History Allergies Allergy/AdvReac Type Severity Reaction Status Date / Time adhesive tape Allergy Intermediate Rash Verified 10/09/24 17:46 Iodinated Contrast Media Allergy Mild Hives Verified 10/09/24 17:46 iodine Allergy Unknown Hives Verified 10/09/24 17:46 codeine AdvReac Unknown Hallucinati Verified 10/09/24 17:46 ng morphine AdvReac Unknown Hallucinati Verified 10/09/24 17:46 ng Vital Signs Vital Signs - 24 hr 10/09/24 15:50 10/09/24 16:31 10/09/24 17:44 Temperature 98.3 F Pulse Rate 109 H 94 86 Respiratory Rate 21 H 11 L 21 H Blood Pressure 82/49 L 82/50 L 103/56 L Pulse Oximetry 95 98 99 Oxygen Delivery 10/09/24 18:16 10/09/24 19:54 10/09/24 20:00 Temperature 97.7 F Pulse Rate 87 85 84 Respiratory Rate 19 16 Blood Pressure 111/54 L 109/51 L Pulse Oximetry 97 99 Oxygen Delivery 10/09/24 20:10 10/09/24 22:00 10/10/24 00:00 Temperature Pulse Rate 90 98 Respiratory Rate Blood Pressure Pulse Oximetry Oxygen Delivery Room Air 10/10/24 00:15 10/10/24 00:15 10/10/24 01:08 Temperature 98.5 F Pulse Rate 99 133 H Respiratory Rate 18 Blood Pressure 114/65 Pulse Oximetry 94 Oxygen Delivery Room Air 10/10/24 02:00 10/10/24 02:44 10/10/24 03:54 Temperature Pulse Rate 138 H 119 H Respiratory Rate Blood Pressure 108/60 Pulse Oximetry Oxygen Delivery 10/10/24 04:00 10/10/24 04:00 10/10/24 04:00 Temperature 98.3 F Pulse Rate 122 H 127 H 127 H Respiratory Rate 16 Blood Pressure 100/44 L 100/64 Pulse Oximetry 98 Oxygen Delivery 10/10/24 04:00 10/10/24 06:00 10/10/24 06:00 Temperature Pulse Rate 93 93 Respiratory Rate Blood Pressure 111/49 L Pulse Oximetry Oxygen Delivery Room Air 10/10/24 06:00 10/10/24 07:50 10/10/24 08:00 Temperature 98.2 F Pulse Rate 93 87 87 Respiratory Rate 20 Blood Pressure 111/49 L 100/43 L Pulse Oximetry 94 Oxygen Delivery 10/10/24 08:00 10/10/24 10:00 10/10/24 10:00 Temperature 98.7 F Pulse Rate 87 81 81 Respiratory Rate 16 Blood Pressure 100/43 L 112/47 L 112/47 L Pulse Oximetry 94 Oxygen Delivery Exam 2 Narrative: Alert oriented x3, anicteric. Abdomen: Soft, nondistended, no hepatosplenomegaly, tender in the left lower quadrant, no rebound. No epigastric tenderness. Results Labs 10/10/24 03:41 10/10/24 03:41 Labs: Short CBC 10/09/24 10/10/24 Range/Units 16:15 03:41 WBC 8.8 9.8 (4.5-10.0) K/mm3 Hgb 13.4 11.6 L (12.0-15.0) g/dL Hct 42.3 35.7 L (37.0-47.0) % Plt Count 201 169 (150-375) k/mm3 BMP 10/09/24 10/10/24 16:15 03:41 Sodium 132 L 127 L Potassium 4.3 4.7 Chloride 98 98 Carbon Dioxide 16 L 18 L BUN 30 H D 33 H Creatinine 4.24 H 4.37 H Glucose 94 92 Calcium 8.8 7.8 L Cardiac Enzymes 10/10/24 10/10/24 10/10/24 Range/Units 00:53 03:41 03:41 Total Creatine Kinase 54 (30-135) U/L Troponin I 0.043 H* Cancelled (0.000-0.034) ng/mL 10/10/24 10/10/24 Range/Units 06:48 10:10 Total Creatine Kinase (30-135) U/L Troponin I 0.052 H* D 0.071 H* D (0.000-0.034) ng/mL Liver Function 10/09/24 10/10/24 Range/Units 16:15 03:41 Total Bilirubin 3.7 H 2.9 H (0.2-1.3) mg/dL AST 4607 H 2353 H (14-36) U/L ALT 3007 H 1836 H (6-35) U/L Alkaline Phosphatase 259 H 249 H (38-126) U/L Albumin 3.4 L 2.6 L (3.5-5.1) g/dL Urine 10/09/24 Range/Units 17:06 Urine Color Yellow (Yellow) Urine Appearance Cloudy H (Clear) Urine pH 5.5 (5.0-9.0) Ur Specific [place] 1.023 (1.001-1.035) Urine Protein 3+ H (Negative) mg/dL Urine Glucose (UA) 3+ H (Negative) mg/dL
[2024-10-10] MEDS: ESCITALOPRAM OXALATE 10 MG TABLET 20 MG PO (11:32)
[2024-10-10] MEDS: ASPIRIN 81 MG ENTERIC TABLET PO (11:32)
[2024-10-10] MEDS: DOCUSATE SODIUM 100 MG CAPSULE PO (11:33)
[2024-10-10 11:45] LABS: Glucose Point of Care 84 mg/dl (65-105)
[2024-10-10] MEDS: ACETAMINOPHEN 325 MG TABLET 650 MG PO (15:21)
[2024-10-10 18:10] LABS: Glucose Point of Care 148 mg/dl (65-105)
[2024-10-10 19:10] LABS: Partial Thromboplastin Time > 200.0 Seconds (22.3-36.8)
[2024-10-10] MEDS: MONTELUKAST SODIUM 10 MG TABLET BY MOUTH (21:16)
[2024-10-10] MEDS: SODIUM BICARBONATE 8.4% 100 MEQ in SODIUM CHLORIDE 0.45% 1,000 ML 150 MEQ IV CONT (21:47)
[2024-10-10] MEDS: PHARMACIST COMMUNICATION ORDER 1 EACH XX (21:47)
[2024-10-10 22:42] LABS: Partial Thromboplastin Time 75.5 Seconds (22.3-36.8)
[2024-10-10] MEDS: ACETAMINOPHEN 500 MG TABLET PO (23:26)
[2024-10-10 23:40] LABS: Glucose Point of Care 119 mg/dl (65-105)
[2024-10-11] VITALS (12 sets, daily range): BP systolic 124–149; BP diastolic 56–82; PULSE 69–100; RESP 16–22; TEMP 36.5–37; O2SAT 92–99; BMI 28.0
--- NOTE | 2024-10-11 | ECHO_ITS ---
Patient Info Name: Allyson Tello Age: 78 years : 1945 Gender: Female Ht: 67 in Wt: 180 lbs BSA: 1.98 m2 HR: 82 bpm BP: 124 / 65 mmHg Technical Quality: Good Exam Date: 10/11/2024 11:28 AM Patient Status: I Admit Date: 10/11/2024 Exam Type: CA echo dop color flow w con Complete two-dimensional, color flow and Doppler transthoracic echocardiogram is performed with contrast to opacify the left ventricle and to improve the deliniation of the left ventricle endocardial borders. Staff Referring Physician: Álvaro Vanegas MD Auto Damage Adjuster: Camila Hannon Attending Provider: Cinda Bliss MD Contrast/Agitated Saline Contrast/Ag. Saline: Definity Amount: 2.00 ml Administered By: Camila Hannon Existing IV Access: Yes IV Access Condition: patent with no signs of infiltration Summary 1. The left ventricle is normal in size and systolic function. There is mild concentric left ventricular hypertrophy. The left ventricular ejection fraction is visually estimated to be 60-65%. There is paradoxical septal wall motion abnormality suggestive of bundle-branch block. 2. The right ventricle is normal in size and systolic function. 3. There were no significant valvular abnormalities. Left Ventricle The left ventricle is normal in size and systolic function. There is mild concentric left ventricular hypertrophy. The left ventricular ejection fraction is visually estimated to be 60-65%. There is paradoxical septal wall motion abnormality suggestive of bundle-branch block. Right Ventricle The right ventricle is normal in size and systolic function. Left Atria Left atrium is normal size. Right Atria The right atrium is normal size. Atrial Septum The atrial septum is not well visualized. Aortic Valve There is no aortic stenosis. There is trace aortic regurgitation. Pulmonic Valve The pulmonic valve is not well visualized. There is no pulmonic valve regurgitation. Mitral Valve The mitral valve leaflets are sclerotic. There is no mitral stenosis. There is mild mitral regurgitation. Tricuspid Valve The tricuspid valve is grossly normal. There is trace tricuspid regurgitation. Pericardium/Pleural Pericardium is normal in appearance with no evidence for significant pericardial effusion. Inferior Vena Cava Inferior vena cava is not well visualized. Aorta The aortic root at the level of the sinus of Valsalva measures 2.5 cm in diameter. Left Ventricular Outflow Tract Name Value Normal LVOT 2D LVOT Diameter 1.9 cm LVOT Doppler LVOT Peak Velocity 117 cm/s LVOT Peak Gradient 5 mmHg LVOT Mean Gradient 3 mmHg LVOT VTI 25 cm LVOT VTI/AV VTI Ratio 0.6 LVOT Stroke Volume 68 ml LVOT CO 5.6 l/min LVOT CI 2.8 l/min/m2 Pulmonic Valve Name Value Normal PV Doppler PV Peak Velocity 92 cm/s PV Peak Gradient 3 mmHg Mitral Valve Name Value Normal MV Doppler MV Peak Gradient 8 mmHg MV Mean Gradient 4 mmHg MV Area (Cont Eq VTI) 1.9 cm2 MV Regurgitation Doppler MR Peak Gradient 112 mmHg MV Diastolic Function MV E Peak Velocity 127 cm/s MV A Peak Velocity 134 cm/s MV E/A 0.9 MV Decel Time (PW) 145 ms MV Annular TDI MV E/e' (Septal) 18.7 MV E/e' (Lateral) 11.8 MV E/e' (Average) 15.2 Tricuspid Valve Name Value Normal TV Regurgitation Doppler TR Peak Velocity 304 cm/s TR Peak Gradient 37 mmHg Estimated PAP/RSVP RA Pressure 10 mmHg <=5 PA Systolic Pressure 47 mmHg <36 RV Systolic Pressure 47 mmHg <36 TV Annular TDI TV Lateral Mont[place] s' Velocity 10.3 cm/s >=9.5 Aortic Valve Name Value Normal AV Doppler AV Peak Velocity 180 cm/s AV Peak Gradient 13 mmHg AV Mean Gradient 8 mmHg AV VTI 38 cm AV Area (Cont Eq VTI) 1.8 cm2 >=3.0 AV Area (Cont Eq Timur) 1.8 cm2 AV DI (Timur) 0.65 AV Regurgitation 2D LVOT Area 2.8 cm2 Ventricles Name Value Normal LV Dimensions 2D/MM IVS Diastolic Thickness (2D) 1.1 cm 0.6-1.0 LVID Diastole (2D) 5.0 cm 3.8-5.2 LVIW Diastolic Thickness (2D) 1.1 cm 0.6-0.9 LVID Systole (2D) 3.2 cm 2.2-3.5 LVOT Diameter 1.9 cm LV Mass (2D Cubed) 205.49 g 67.00-162.00 LV Mass Index (2D Cubed) 104 g/m2 43-95 Relative Wall Thickness (2D) 0.44 <=0.42 LV Fractional Shortening/Ejection Fraction 2D/MM LV Fractional Shortening (2D) 35 % 27-45 LV EF (2D Teichholz) 65 % LV Diastolic Volume (4C MOD) 133 ml LV EF (4C MOD) 62 % LV Diastolic Volume (2C MOD) 125 ml LV EF (2C MOD) 50 % LV Diastolic Volume (BP MOD) 132 ml 46-106 LV Diastolic Volume Index (BP MOD) 67 ml/m2 29-61 LV Systolic Volume (BP MOD) 56 ml 14-42 LV Systolic Volume Index (BP MOD) 28 ml/m2 8-24 LV EF (BP MOD) 57 % 54-74 LV Diastolic Length (4C) 9.6 cm LV Systolic Length (4C) 7.9 cm LV Stroke Volume (4C MOD) 82 ml Atria Name Value Normal LA Dimensions LA Volume (4C A-L) 33 ml LA Volume (BP A-L) 39 ml RA Dimensions RA Systolic [place] Length (4C) 4.7 cm 2.2-2.8 RA Area (4C) 11.6 cm2 <=18.0 Report Signatures
[2024-10-11] MEDS: SODIUM BICARBONATE 8.4% 100 MEQ in SODIUM CHLORIDE 0.45% 1,000 ML 150 MEQ IV CONT ×3 (05:06→20:01)
[2024-10-11] MEDS: HEPARIN SOD/D5W 100 UNITS/ML 25,000 UNITS/250 ML BAG 9 UNITS IV CONT (05:07)
[2024-10-11] MEDS: HYDROmorphone HCL INJ (*CRX) 2 MG/ML VIAL 0.5 MG IV PUSH (05:09)
[2024-10-11 05:24] LABS: Basophils Absolute Auto 0.1 K/mm3 (0.0-0.1); Basophils Percent Auto 0.8 % (0.2-1.2); Eosinophils Absolute Auto 0.2 K/mm3 (0-0.3); Eosinophils Percent Auto 1.9 % (0-4.4); Hematocrit 40.2 % (37.0-47.0); Hemoglobin 12.8 g/dL (12.0-15.0); Immature Granulocyte Absolute 0.07 K/mm3 (0.00-0.031); Immature Granulocyte Percent A 0.7 % (0-0.5); Lymphocytes Absolute Auto 0.89 K/mm3 (0.9-3.2); Lymphocytes Percent Auto 8.5 % (18.3-44.2); Mean Corpuscular HGB Conc 31.8 g/dl (32-36); Mean Corpuscular Hemoglobin 27.6 pg (26-34); Mean Corpuscular Volume 86.6 fl (80-100); Mean Platelet Volume 10.1 fl (7.4-10.4); Monocytes Absolute Auto 0.7 K/mm3 (0.1-0.6); Monocytes Percent Auto 6.2 % (2.6-8.5); Neutrophils Absolute Auto 8.5 K/mm3 (1.3-6.7); Neutrophils Percent Auto 81.9 % (45.5-73.1); Platelet Count Result 191 k/mm3 (150-375); Red Blood Count 4.64 M/mm3 (4.2-5.4); Red Cell Distribution Width 14.8 % (11.5-14.5); White Blood Count 10.4 K/mm3 (4.5-10.0)
[2024-10-11 05:58] LABS: Partial Thromboplastin Time 99.6 Seconds (22.3-36.8)
[2024-10-11 06:12] LABS: Alkaline Phosphatase 399 U/L (38-126); Anion Gap 13 mmol/L (4-12); Bilirubin,Total 2.9 mg/dL (0.2-1.3); Blood Urea Nitrogen 35 mg/dL (7-17); Calcium 7.7 mg/dL (8.4-10.2); Carbon Dioxide 20 mmol/L (22-30); Chloride 94 mmol/L (98-107); Estimated CRCL calculation 9 ml/min; Estimated Glomerular Filt Rate 8; Glucose 119 mg/dL (65-110); Potassium 4.3 mmol/L (3.4-5.0); Sodium 127 mmol/L (137-145); Total Protein 5.5 g/dL (6.3-8.2)
[2024-10-11 06:17] LABS: Alanine Aminotransferase 1440 U/L (6-35); Aspartate Amino Transferase 1047 U/L (14-36)
[2024-10-11] MEDS: LEVOTHYROXINE SODIUM 150 MCG TABLET PO (07:35)
[2024-10-11] MEDS: DOCUSATE SODIUM 100 MG CAPSULE PO (09:12)
[2024-10-11] MEDS: ESCITALOPRAM OXALATE 10 MG TABLET 20 MG PO (09:12)
[2024-10-11] MEDS: ASPIRIN 81 MG ENTERIC TABLET PO (09:12)
[2024-10-11 11:12] LABS: Glucose Point of Care 108 mg/dl (65-105)
--- NOTE | 2024-10-11 11:20 | P.PNNP_ITS ---
Progress Note: A&P Assessment and Plan (1) CHAD (acute kidney injury): Code(s): N17.9 - Acute kidney failure, unspecified Status: Acute Assessment and Plan: * relatively normal creatinine at baseline * ongoing worsening noted since admission * suspect multifactorial: * hypotension/hemodynamic instability * prerenal factors * ARB use prior to admission * Afib * other(?) * evaluation to date noted: * normal renal ultrasound * CPK normal * urine studies pending * UA noted * concerning that she is not making much urine * she remains at risk for [employer]/dialysis * may need to back off on IVFs... * follow trend of repeat labs and UOP (2) Pancreatitis: Code(s): K85.90 - Acute pancreatitis without necrosis or infection, unspecified Status: Deleted Assessment and Plan: * as noted by admission CT scan * however, lipase normal * GI recommendations noted - no clinical evidence of pancreatitis (3) Metabolic acidosis: Code(s): E87.20 - Acidosis, unspecified Status: Acute Assessment and Plan: * presumably due to CHAD/ARF * mild lactic acidosis contributing as well * outpatient metformin playing a role(?) * on bicarb fluids to compensate * follow trend of CO2 (4) CHF (congestive heart failure): Code(s): I50.9 - Heart failure, unspecified Status: Acute Assessment and Plan: * last Echo with diastolic dysfunction (from 2021) * repeat Echo ordered * volume status stable at this time (5) Hypertension: Qualifiers: Hypertension type: unspecified Qualified Code(s): I10 - Essential (primary) hypertension Code(s): I10 - Essential (primary) hypertension Status: Chronic Assessment and Plan: * not an issue at this time * hypotensive on admission * BP medications on hold (6) Elevated liver enzymes: Code(s): R74.8 - Abnormal levels of other serum enzymes Status: Acute Assessment and Plan: * as noted on admission * slow improvement noted * thought to be related to altered hemodynamics/hypotension * GI following (7) Diabetes: Code(s): E11.9 - Type 2 diabetes mellitus without complications Status: Acute Assessment and Plan: * follow accu-checks * glycemic control per hospitalist Long and extensive discussion( > 20 minutes) with patient regarding her renal failure and diminished urine output -- I voiced my concerns that she may need renal replacement therapy/dialysis if runs into problems with hyperkalemia, worsening acidosis, volume overload or uremia...she appeared to voice understanding and is hopeful that her kidney function will improve with conservative/supportive therapy and interventions. Will continue to follow. Subjective Date/time seen: 10/11/24 11:20 Interval history: Follow-up for acute kidney injury/acute renal failure. Chart reviewed -- assuming care from Dr. Vanegas; renal function/creatinine continues to worsen and despite ongoing IVFs, not making much urine; no apparent distress other than intermittent nausea; no other issues/events overnight or earlier today. Exam 2 Narrative: General: elderly and mildly ill-appearing female in NAD Heart: normal S1 and S2; no rub Lungs: clear to auscultation Abdomen: soft, nontender, nondistended, positive bowel sounds Extremities: no cyanosis or clubbing; no edema Skin: warm and dry Objective Data Vital Signs Vital Signs: Vital Signs Temp Pulse Resp BP Pulse Ox O2 Del Method FiO2 10/11/24 11:13 97.9 F 81 22 H 135/57 L 96 10/11/24 10:00 85 130/57 L 10/11/24 10:00 130/57 L 10/11/24 10:00 85 10/11/24 08:00 86 133/69 10/11/24 08:00 87 10/11/24 08:00 98.6 F 86 22 H 133/69 92 10/11/24 06:00 82 124/65 10/11/24 06:00 82 124/65 10/11/24 06:00 83 10/11/24 04:00 100 149/82 H 10/11/24 04:00 98.4 F 100 17 149/82 H 98 10/11/24 04:00 95 10/11/24 04:00 Room Air 10/11/24 02:00 84 10/11/24 02:00 84 125/56 L 10/11/24 02:00 84 125/56 L 10/11/24 00:00 95 10/11/24 00:00 96 126/65 10/11/24 00:00 98.1 F 96 16 126/65 99 10/10/24 23:45 Room Air 10/10/24 22:00 79 10/10/24 22:00 79 123/63 10/10/24 22:00 79 123/63 10/10/24 21:58 78 10/10/24 21:00 Room Air 10/10/24 20:56 98 Room Air 21 10/10/24 20:00 77 10/10/24 20:00 79 121/59 L 10/10/24 20:00 98.1 F 79 17 121/59 L 98 10/10/24 18:00 78 10/10/24 18:00 77 117/51 L 10/10/24 18:00 98.0 F 77 24 H 117/51 L 97 10/10/24 16:00 77 10/10/24 16:00 78 123/63 10/10/24 16:00 98.2 F 78 20 123/63 96 10/10/24 14:00 81 10/10/24 14:00 81 121/42 L 10/10/24 14:00 98.2 F 81 16 121/42 L 95 Intake/Output Intake/Output: Intake & Output 10/08/24 10/09/24 10/10/24 10/11/24 23:59 23:59 23:59 23:59 Intake Total 2152.1 3757.5 1500.1 Output Total 0 Balance 2152.1 3757.5 1500.1 Meds/Results Medications: Active Medications Generic Name Dose Route Start Last Admin Trade Name Thelma PRN Reason Stop Dose Admin Acetaminophen 500 mg 10/10/24 23:07 10/10/24 23:26 Acetaminophen 500 Mg Tablet PO 500 mg Q6H PRN Administration Mild Pain (1-3) or Fever Aspirin 81 mg 10/10/24 09:00 10/11/24 09:12 Aspirin 81 Mg Enteric Tablet PO 81 mg DAILY JIGNA Administration Dextrose 12.5 gm 10/09/24 20:02 Dextrose 50% 25 Gm/50 Ml Syringe IV PUSH PRN PRN Hypoglycemia Protocol Diltiazem HCl 120 mg 10/11/24 12:00 Diltiazem Hcl Cd 120 Mg Cap.24hr PO QAM JIGNA Docusate Sodium 100 mg 10/10/24 09:00 10/11/24 09:12 Docusate Sodium 100 Mg Capsule PO 100 mg BID JIGNA Administration Escitalopram Oxalate 20 mg 10/10/24 09:00 10/11/24 09:12 Escitalopram Oxalate 10 Mg Tablet PO 20 mg DAILY JIGNA Administration Glucagon 1 mg 10/09/24 20:02 Glucagon For Inj 1 Mg Vial IM PRN PRN Hypoglycemia Protocol Glucose 15 gm 10/09/24 20:02 Glucose Oral Gel 15 Gm Of Glucse In 37.5 Gm Tube PO PRN PRN Hypoglycemia Protocol Heparin Sodium (Porcine) 5,500 units 10/10/24 02:45 Heparin Sodium 5,000 Units/Ml Vial IV PUSH PRN PRN aPTT less than 55 seconds Heparin Sodium (Porcine) 3,000 units 10/10/24 02:45 Heparin Sodium 5,000 Units/Ml Vial IV PUSH PRN PRN aPTT 55 - 70 seconds Hydromorphone HCl 0.5 mg 10/10/24 00:28 10/11/24 05:09 Hydromorphone Hcl Inj (*Crx) 2 Mg/Ml Vial IV PUSH 0.5 mg Q3H PRN Administration Pain Rated 7-10 Dextrose 1,000 mls @ 100 mls/hr 10/09/24 20:02 Dextrose 5% 1,000 Ml IVPB PRN PRN Hypoglycemia Protocol Heparin Sodium/Dextrose 25,000 units in 250 mls @ 9 mls/hr 10/10/24 02:45 10/11/24 06:00 Heparin Sodium/D5w 100 Units/Ml IV CONT 900 units/hr .Q24H JIGNA 9 mls/hr Titration Protocol 900 UNITS/HR Sodium Bicarbonate 100 meq/ 1,100 mls @ 150 mls/hr 10/10/24 21:30 10/11/24 05:06 Sodium Chloride IV CONT 150 mls/hr .Q7H20M JIGNA Administration Insulin Aspart 2 - 5 units 10/10/24 00:00 10/11/24 11:59 Insulin Aspart (*Bkc) 100 Units/Ml SUB-Q Not Given Q6HR [facility] Protocol Levothyroxine Sodium 125 mcg 10/10/24 06:30 10/10/24 06:20 Levothyroxine Sodium 125 Mcg Tablet BY MOUTH 125 mcg Q48H JIGNA Administration Levothyroxine Sodium 150 mcg 10/11/24 06:30 10/11/24 07:35 Levothyroxine Sodium 150 Mcg Tablet PO 150 mcg Q48H JIGNA Administration Montelukast Sodium 10 mg 10/09/24 21:35 10/10/24 21:16 Montelukast Sodium 10 Mg Tablet BY MOUTH 10 mg QHS JIGNA Administration Perflutren Lipid Microsphere 0 ml 10/10/24 02:47 Perflutren Lipid Microspheres 1.5 Ml Vial Diluted To 10 Ml Total Volume IV PUSH 10/13/24 02:47 ONCE PRN adequate visualization Protocol Radiology Results: ITS Impressions Abdomen/Pelvis CT 10/09/24 16:08 IMPRESSION: Trace pericardial effusion. Scattered calcified and noncalcified sub-6 mm pulmonary nodules, likely representing granulomas. Mild inflammatory change surrounding the pancreatic head and uncinate process, correlate for clinical findings of pancreatitis. Mild inflammatory stranding/edema in the proximal bile ducts, presumably related to the pancreatic process, noting that ascending cholangitis could appear similarly. Mild dilation of the third and fourth portions of the duodenum, presumably ileus related to the pancreatic process. Abdomen X-Ray 10/10/24 06:55 Impression: No acute abnormality is seen. Irregular markedly hyperdense opacity in the pelvis. Correlate for surgical/procedural history or traumatic history/foreign body. Renal Ultrasound 10/10/24 11:35 Impression: Unremarkable ultrasound of the kidneys and urinary bladder. Labs Labs: Laboratory Tests 10/11/24 05:00 10/11/24 05:00 Calcium 7.7 L Total Bilirubin 2.9 H AST 1047 H ALT 1440 H Alkaline Phosphatase 399 H Total Protein 5.5 L Albumin 3.0 L Microbiology 10/09/24 17:06 Blood Blood Culture - Preliminary 10/09/24 17:06 Blood Blood Culture - Preliminary
--- NOTE | 2024-10-11 11:47 | P.PNCA_ITS ---
Progress Note: A&P Assessment and Plan (1) CAD (coronary artery disease): Qualifiers: Coronary Disease-Associated Artery/Lesion type: unspecified vessel or lesion type [place] vs. transplanted heart: [place] heart Associated angina: without angina Qualified Code(s): I25.10 - Atherosclerotic heart disease of [place] coronary artery without angina pectoris Code(s): I25.10 - Atherosclerotic heart disease of [place] coronary artery without angina pectoris Status: Acute (2) Atrial fibrillation with RVR: Code(s): I48.91 - Unspecified atrial fibrillation Status: Acute (3) Hyperlipidemia: Qualifiers: Hyperlipidemia type: mixed hyperlipidemia Qualified Code(s): E78.2 - Mixed hyperlipidemia Code(s): E78.5 - Hyperlipidemia, unspecified Status: Acute Plan 78-year-old woman with coronary artery disease status post PCI, diabetes, hypertension, and hyperlipidemia presented with generalized weakness Paroxysmal atrial fibrillation -no further cardiac procedures indicated during his admission -if there are no other procedures planned, then we will convert her heparin drip to Eliquis 5 mg p.o. b.i.d. -will come for her diltiazem drip to oral diltiazem 120mg PO daily Coronary artery disease status post PCI -continue aspirin 81 mg p.o. daily Hyperlipidemia -resume rosuvastatin on discharge -symptoms unlikely related to statin as CK is normal Pt can follow up with Dr. Veloz in clinic Subjective Date/time seen: 10/11/24 11:47 Interval history: No chest pain or shortness of breath. Review of Systems Cardiovascular: Cardiovascular: Reports as per HPI Respiratory: Respiratory: Reports as per HPI Exam Const: Other: ill appearing HENMT: Mouth: Yes moist mucous membranes Eyes: EOM: EOMs intact bilaterally Neck: Neck: no JVD Resp: Effort & Inspection: normal respiratory effort Auscultation: rhonchi Cardio: Rate: regular rate Rhythm: regular rhythm Neuro: Speech: normal speech Extrem: General: no pedal edema Objective Data Vital Signs Vital Signs: Vital Signs - 24 hr 10/10/24 12:00 10/10/24 12:00 10/10/24 12:00 Temperature 36.6 C Pulse Rate 78 78 78 Respiratory Rate 20 Blood Pressure 115/45 L 115/45 L Pulse Oximetry 97 Oxygen Delivery Fraction of Inspired Oxygen 10/10/24 14:00 10/10/24 14:00 10/10/24 14:00 Temperature 36.8 C Pulse Rate 81 81 81 Respiratory Rate 16 Blood Pressure 121/42 L 121/42 L Pulse Oximetry 95 Oxygen Delivery Fraction of Inspired Oxygen 10/10/24 16:00 10/10/24 16:00 10/10/24 16:00 Temperature 36.8 C Pulse Rate 78 78 77 Respiratory Rate 20 Blood Pressure 123/63 123/63 Pulse Oximetry 96 Oxygen Delivery Fraction of Inspired Oxygen 10/10/24 18:00 10/10/24 18:00 10/10/24 18:00 Temperature 36.7 C Pulse Rate 77 77 78 Respiratory Rate 24 H Blood Pressure 117/51 L 117/51 L Pulse Oximetry 97 Oxygen Delivery Fraction of Inspired Oxygen 10/10/24 20:00 10/10/24 20:00 10/10/24 20:00 Temperature 36.7 C Pulse Rate 79 79 77 Respiratory Rate 17 Blood Pressure 121/59 L 121/59 L Pulse Oximetry 98 Oxygen Delivery Fraction of Inspired Oxygen 10/10/24 20:56 10/10/24 21:00 10/10/24 21:58 Temperature Pulse Rate 78 Respiratory Rate Blood Pressure Pulse Oximetry 98 Oxygen Delivery Room Air Room Air Fraction of Inspired Oxygen 21 10/10/24 22:00 10/10/24 22:00 10/10/24 22:00 Temperature Pulse Rate 79 79 79 Respiratory Rate Blood Pressure 123/63 123/63 Pulse Oximetry Oxygen Delivery Fraction of Inspired Oxygen 10/10/24 23:45 10/11/24 00:00 10/11/24 00:00 Temperature 36.7 C Pulse Rate 96 96 Respiratory Rate 16 Blood Pressure 126/65 126/65 Pulse Oximetry 99 Oxygen Delivery Room Air Fraction of Inspired Oxygen 10/11/24 00:00 10/11/24 02:00 10/11/24 02:00 Temperature Pulse Rate 95 84 84 Respiratory Rate Blood Pressure 125/56 L 125/56 L Pulse Oximetry Oxygen Delivery Fraction of Inspired Oxygen 10/11/24 02:00 10/11/24 04:00 10/11/24 04:00 Temperature Pulse Rate 84 95 Respiratory Rate Blood Pressure Pulse Oximetry Oxygen Delivery Room Air Fraction of Inspired Oxygen 10/11/24 04:00 10/11/24 04:00 10/11/24 06:00 Temperature 36.9 C Pulse Rate 100 100 83 Respiratory Rate 17 Blood Pressure 149/82 H 149/82 H Pulse Oximetry 98 Oxygen Delivery Fraction of Inspired Oxygen 10/11/24 06:00 10/11/24 06:00 10/11/24 08:00 Temperature 37.0 C Pulse Rate 82 82 86 Respiratory Rate 22 H Blood Pressure 124/65 124/65 133/69 Pulse Oximetry 92 Oxygen Delivery Fraction of Inspired Oxygen 10/11/24 08:00 10/11/24 08:00 10/11/24 10:00 Temperature Pulse Rate 87 86 85 Respiratory Rate Blood Pressure 133/69 Pulse Oximetry Oxygen Delivery Fraction of Inspired Oxygen 10/11/24 10:00 10/11/24 10:00 10/11/24 11:43 Temperature 36.6 C Pulse Rate 85 81 Respiratory Rate 22 H Blood Pressure 130/57 L 130/57 L 135/57 L Pulse Oximetry 96 Oxygen Delivery Fraction of Inspired Oxygen Intake/Output Intake/Output: Intake & Output 10/08/24 10/09/24 10/10/24 10/11/24 23:59 23:59 23:59 23:59 Intake Total 2152.1 3757.5 1500.1 Output Total 0 Balance 2152.1 3757.5 1500.1 Meds/Results Medications: Active Medications Generic Name Dose Route Start Last Admin Trade Name Freq PRN Reason Stop Dose Admin Acetaminophen 500 mg 10/10/24 23:07 10/10/24 23:26 Acetaminophen 500 Mg Tablet PO 500 mg Q6H PRN Administration Mild Pain (1-3) or Fever Aspirin 81 mg 10/10/24 09:00 10/11/24 09:12 Aspirin 81 Mg Enteric Tablet PO 81 mg DAILY JIGNA Administration Dextrose 12.5 gm 10/09/24 20:02 Dextrose 50% 25 Gm/50 Ml Syringe IV PUSH PRN PRN Hypoglycemia Protocol Docusate Sodium 100 mg 10/10/24 09:00 10/11/24 09:12 Docusate Sodium 100 Mg Capsule PO 100 mg BID JIGNA Administration Escitalopram Oxalate 20 mg 10/10/24 09:00 10/11/24 09:12 Escitalopram Oxalate 10 Mg Tablet PO 20 mg DAILY JIGNA Administration Glucagon 1 mg 10/09/24 20:02 Glucagon For Inj 1 Mg Vial IM PRN PRN Hypoglycemia Protocol Glucose 15 gm 10/09/24 20:02 Glucose Oral Gel 15 Gm Of Glucse In 37.5 Gm Tube PO PRN PRN Hypoglycemia Protocol Heparin Sodium (Porcine) 5,500 units 10/10/24 02:45 Heparin Sodium 5,000 Units/Ml Vial IV PUSH PRN PRN aPTT less than 55 seconds Heparin Sodium (Porcine) 3,000 units 10/10/24 02:45 Heparin Sodium 5,000 Units/Ml Vial IV PUSH PRN PRN aPTT 55 - 70 seconds Hydromorphone HCl 0.5 mg 10/10/24 00:28 10/11/24 05:09 Hydromorphone Hcl Inj (*Crx) 2 Mg/Ml Vial IV PUSH 0.5 mg Q3H PRN Administration Pain Rated 7-10 Dextrose 1,000 mls @ 100 mls/hr 10/09/24 20:02 Dextrose 5% 1,000 Ml IVPB PRN PRN Hypoglycemia Protocol Diltiazem HCl 100 mg in 100 mls @ 5 mls/hr 10/10/24 02:45 10/11/24 10:00 Cardizem 100 Mg/100 Ml IV CONT 5 mg/hr .Q20H JIGNA 5 mls/hr Infusion 5 MG/HR Heparin Sodium/Dextrose 25,000 units in 250 mls @ 9 mls/hr 10/10/24 02:45 10/11/24 06:00 Heparin Sodium/D5w 100 Units/Ml IV CONT 900 units/hr .Q24H JIGNA 9 mls/hr Titration Protocol 900 UNITS/HR Sodium Bicarbonate 100 meq/ 1,100 mls @ 150 mls/hr 10/10/24 21:30 10/11/24 05:06 Sodium Chloride IV CONT 150 mls/hr .Q7H20M JIGNA Administration Insulin Aspart 2 - 5 units 10/10/24 00:00 10/11/24 06:00 Insulin Aspart (*Bkc) 100 Units/Ml SUB-Q Not Given Q6HR JIGNA Protocol Levothyroxine Sodium 125 mcg 10/10/24 06:30 10/10/24 06:20 Levothyroxine Sodium 125 Mcg Tablet BY MOUTH 125 mcg Q48H JIGNA Administration Levothyroxine Sodium 150 mcg 10/11/24 06:30 10/11/24 07:35 Levothyroxine Sodium 150 Mcg Tablet PO 150 mcg Q48H JIGNA Administration Montelukast Sodium 10 mg 10/09/24 21:35 10/10/24 21:16 Montelukast Sodium 10 Mg Tablet BY MOUTH 10 mg QHS JIGNA Administration Perflutren Lipid Microsphere 0 ml 10/10/24 02:47 Perflutren Lipid Microspheres 1.5 Ml Vial Diluted To 10 Ml Total Volume IV PUSH 10/13/24 02:47 ONCE PRN adequate visualization Protocol Radiology Results: ITS Impressions Abdomen/Pelvis CT 10/09/24 16:08 IMPRESSION: Trace pericardial effusion. Scattered calcified and noncalcified sub-6 mm pulmonary nodules, likely representing granulomas. Mild inflammatory change surrounding the pancreatic head and uncinate process, correlate for clinical findings of pancreatitis. Mild inflammatory stranding/edema in the proximal bile ducts, presumably related to the pancreatic process, noting that ascending cholangitis could appear similarly. Mild dilation of the third and fourth portions of the duodenum, presumably ileus related to the pancreatic process. Abdomen X-Ray 10/10/24 06:55 Impression: No acute abnormality is seen. Irregular markedly hyperdense opacity in the pelvis. Correlate for surgical/procedural history or traumatic history/foreign body. Renal Ultrasound 10/10/24 11:35 Impression: Unremarkable ultrasound of the kidneys and urinary bladder. Labs Labs: Laboratory Results - last 24 hr 10/10/24 10/10/24 10/10/24 17:51 18:08 22:21 WBC RBC Hgb Hct MCV MCH MCHC RDW Plt Count MPV Immature Gran % (Auto) Neut % (Auto) Lymph % (Auto) [place] % (Auto) Eos % (Auto) Baso % (Auto) Lymph # (Auto) [place] # (Auto) Eos # (Auto) Baso # (Auto) Abs Immat Gran (auto) Absolute Neuts (auto) Absolute Nucleated RBC Nucleated RBC % APTT > 200.0 H* 75.5 H Sodium Potassium Chloride Carbon Dioxide Anion Gap BUN Creatinine Estim Creat Clear Calc Estimated GFR Glucose POC Capillary Glucose 148 H Calcium Total Bilirubin AST ALT Alkaline Phosphatase Total Protein Albumin 10/10/24 10/11/24 10/11/24 23:33 05:00 11:09 WBC 10.4 H RBC 4.64 Hgb 12.8 Hct 40.2 MCV 86.6 MCH 27.6 MCHC 31.8 L RDW 14.8 H Plt Count 191 MPV 10.1 Immature Gran % (Auto) 0.7 H Neut % (Auto) 81.9 H Lymph % (Auto) 8.5 L [place] % (Auto) 6.2 Eos % (Auto) 1.9 Baso % (Auto) 0.8 Lymph # (Auto) 0.89 L [place] # (Auto) 0.7 H Eos # (Auto) 0.2 Baso # (Auto) 0.1 Abs Immat Gran (auto) 0.07 H Absolute Neuts (auto) 8.5 H Absolute Nucleated RBC 0.000 Nucleated RBC % 0.0 APTT 99.6 H Sodium 127 L Potassium 4.3 Chloride 94 L Carbon Dioxide 20 L Anion Gap 13 H BUN 35 H Creatinine 5.38 H Estim Creat Clear Calc 9 Estimated GFR 8 L Glucose 119 H POC Capillary Glucose 119 H 108 H Calcium 7.7 L Total Bilirubin 2.9 H AST 1047 H ALT 1440 H Alkaline Phosphatase 399 H Total Protein 5.5 L Albumin 3.0 L
[2024-10-11] MEDS: PERFLUTREN LIPID MICROSPHERES 1.5 ML VIAL DILUTED TO 10 ML TOTAL VOLUME IV PUSH (11:50)
[2024-10-11] MEDS: dilTIAZem HCL CD 120 MG CAP.24HR PO (12:22)
--- NOTE | 2024-10-11 12:31 | IVDEFINITY ---
Prior to administration of IV Definity the patient was educated on the risks and benefits of the imaging enhancing agent including potential adverse side effects. The patient verbalized understanding. Allergies were verified. No exclusion criteria were identified and at least one of the following inclusion criteria were met: 1) physician request, 2) patient technically difficult to image (per the [place] [employer] guidelines of two or more segments not discernable within the apical view), or 3) questionable left ventricular function. ?
[2024-10-11 12:45] LABS: Partial Thromboplastin Time 115.9 Seconds (22.3-36.8)
--- NOTE | 2024-10-11 13:50 | P.PNIM_ITS ---
Progress Note: A&P Assessment and Plan (1) CHAD (acute kidney injury): Code(s): N17.9 - Acute kidney failure, unspecified Status: Acute Assessment and Plan: Nephrology on board Increase fluid hydration BMP in the morning nephrology consulted ordered CR/BUN 4.37/33 today -10/10 - CHAD most likely due to dehydration and hypotension LR stopped (due to metabolic acidosis), half normal saline ordered monitor I/O 10/11 cr 5.38 today nephrology on board-following (2) Constipation: Code(s): K59.00 - Constipation, unspecified Status: Acute Assessment and Plan: Senna (3) Diabetes: Code(s): E11.9 - Type 2 diabetes mellitus without complications Status: Acute Assessment and Plan: Accu-Cheks q.6 SSI Hold home diabetes medications hypoglycemia protocol in place BS reviewed and stable (4) Elevated liver enzymes: Code(s): R74.8 - Abnormal levels of other serum enzymes Status: Acute Assessment and Plan: GI was consulted notes reviewed: The patient's clinical presentation is not consistent with acute pancreatitis. Her primary issue appears to be a significant elevation of transaminases, which have notably decreased by almost half within 24 hours of fluid resuscitation. This is most compatible with ischemic hepatopathy, likely attributable to clinically silent, intermittent atrial fibrillation causing liver hypoperfusion. This also explains her extreme weakness, which persisted for over a week. Given that she doesn't have a clinical picture consistent with pancreatitis and her lipase levels have remained normal, the mild peripancreatic changes seen on imaging are considered nonspecific. Therefore, she can be started on oral feeds. We will also hold off on the MRCP that was initially ordered yesterday - Zosyn is d/c as it was started for consideration for cholangitis (5) Hypertension: Qualifiers: Hypertension type: unspecified Qualified Code(s): I10 - Essential (primary) hypertension Code(s): I10 - Essential (primary) hypertension Status: Acute Assessment and Plan: home emds on hold as hypotensive (6) CHF (congestive heart failure): Code(s): I50.9 - Heart failure, unspecified Status: Acute Assessment and Plan: Last echo 2021 ejection fraction 55-60% cardiology on board (7) Atrial fibrillation with RVR: Code(s): I48.91 - Unspecified atrial fibrillation Status: Acute Assessment and Plan: new onset of afib cardiology was consulted Secondary to acute stress of pancreatitis. Converted to sinus rhythm on diltiazem drip 5 mg an hour. Because patient is NPO we will continue diltiazem drip for today. We can transition to beta-gabriel p.o. when she is able to tolerate p.o.. Continue IV heparin tele monitoring 10/11 card notes reviewed: no further cardiac procedures indicated during his admission -if there are no other procedures planned, then we will convert her heparin drip to Eliquis 5 mg p.o. b.i.d. -will come for her diltiazem drip to oral diltiazem 120mg PO daily continue asa, resume statin at discharge Plan Reports intermitted nausea today QTc 511- so ideally avoid medication that could prolong it Subjective Date/time seen: 10/11/24 13:50 Interval history: pt is seen and examined. She is feeling tired and have intermitten nausea. no chest pain, no sob Review of Systems Review of Systems: 12 systems were reviewed and are negativ e except for as per HPI. Exam Narrative: General: well appearing, appears stated age. HEENT: normocephalic, atraumatic. Mucous membranes moist. EOMI, PERRLA, bilateral sclera anicteric, no conjunctival injection. Neck supple without JVD, lymphadenopathy, or bruit. Respiratory: clear to ascultation bilaterally. No rales/rhonic/wheezes. Cardiovascular: normal S1-S2 upon ascultation. No murmurs, rubs, or clicks. PMI is nondisplaced, capillary refill less than 3 second. Abdomen: Soft, round, no pulsatile masses, nondistended and nontender. No rebound, no guarding. No CVA tenderness, no hepatosplenomegaly. Bowel sounds present Extremities: No cyanosis, clubbing, or edema present. Pulses are palpable 2/2. Active ROM to all four extremities. Neuro: Alert and orientated x 4. PERRLA. Cranial nerves 2-12 intact without focal deficit. Skin: Warm, dry, and intact, without rash, erythema, or lesion. Psych: pleasant, cooperative, normal speech, normal affect, no hallucinations, no dysarthia Const: General: comfortable Objective Data Vital Signs Vital Signs: Vital Signs - 24 hr 10/10/24 14:00 10/10/24 14:00 10/10/24 14:00 Temperature 98.2 F Pulse Rate 81 81 81 Respiratory Rate 16 Blood Pressure 121/42 L 121/42 L Pulse Oximetry 95 Oxygen Delivery Fraction of Inspired Oxygen 10/10/24 16:00 10/10/24 16:00 10/10/24 16:00 Temperature 98.2 F Pulse Rate 78 78 77 Respiratory Rate 20 Blood Pressure 123/63 123/63 Pulse Oximetry 96 Oxygen Delivery Fraction of Inspired Oxygen 10/10/24 18:00 10/10/24 18:00 10/10/24 18:00 Temperature 98.0 F Pulse Rate 77 77 78 Respiratory Rate 24 H Blood Pressure 117/51 L 117/51 L Pulse Oximetry 97 Oxygen Delivery Fraction of Inspired Oxygen 10/10/24 20:00 10/10/24 20:00 10/10/24 20:00 Temperature 98.1 F Pulse Rate 79 79 77 Respiratory Rate 17 Blood Pressure 121/59 L 121/59 L Pulse Oximetry 98 Oxygen Delivery Fraction of Inspired Oxygen 10/10/24 20:56 10/10/24 21:00 10/10/24 21:58 Temperature Pulse Rate 78 Respiratory Rate Blood Pressure Pulse Oximetry 98 Oxygen Delivery Room Air Room Air Fraction of Inspired Oxygen 21 10/10/24 22:00 10/10/24 22:00 10/10/24 22:00 Temperature Pulse Rate 79 79 79 Respiratory Rate Blood Pressure 123/63 123/63 Pulse Oximetry Oxygen Delivery Fraction of Inspired Oxygen 10/10/24 23:45 10/11/24 00:00 10/11/24 00:00 Temperature 98.1 F Pulse Rate 96 96 Respiratory Rate 16 Blood Pressure 126/65 126/65 Pulse Oximetry 99 Oxygen Delivery Room Air Fraction of Inspired Oxygen 10/11/24 00:00 10/11/24 02:00 10/11/24 02:00 Temperature Pulse Rate 95 84 84 Respiratory Rate Blood Pressure 125/56 L 125/56 L Pulse Oximetry Oxygen Delivery Fraction of Inspired Oxygen 10/11/24 02:00 10/11/24 04:00 10/11/24 04:00 Temperature Pulse Rate 84 95 Respiratory Rate Blood Pressure Pulse Oximetry Oxygen Delivery Room Air Fraction of Inspired Oxygen 10/11/24 04:00 10/11/24 04:00 10/11/24 06:00 Temperature 98.4 F Pulse Rate 100 100 83 Respiratory Rate 17 Blood Pressure 149/82 H 149/82 H Pulse Oximetry 98 Oxygen Delivery Fraction of Inspired Oxygen 10/11/24 06:00 10/11/24 06:00 10/11/24 08:00 Temperature 98.6 F Pulse Rate 82 82 86 Respiratory Rate 22 H Blood Pressure 124/65 124/65 133/69 Pulse Oximetry 92 Oxygen Delivery Fraction of Inspired Oxygen 10/11/24 08:00 10/11/24 08:00 10/11/24 10:00 Temperature Pulse Rate 87 86 85 Respiratory Rate Blood Pressure 133/69 Pulse Oximetry Oxygen Delivery Fraction of Inspired Oxygen 10/11/24 10:00 10/11/24 10:00 10/11/24 11:43 Temperature 97.9 F Pulse Rate 85 81 Respiratory Rate 22 H Blood Pressure 130/57 L 130/57 L 135/57 L Pulse Oximetry 96 Oxygen Delivery Fraction of Inspired Oxygen 10/11/24 12:00 10/11/24 12:00 Temperature Pulse Rate 81 76 Respiratory Rate Blood Pressure 135/57 L Pulse Oximetry Oxygen Delivery Fraction of Inspired Oxygen Intake/Output Intake/Output: Intake & Output 10/08/24 10/09/24 10/10/24 10/11/24 23:59 23:59 23:59 23:59 Intake Total 2152.1 3757.5 2672.5 Output Total 0 Balance 2152.1 3757.5 2672.5 Meds/Results Medications: Active Medications Generic Name Dose Route Start Last Admin Trade Name Freq PRN Reason Stop Dose Admin Acetaminophen 500 mg 10/10/24 23:07 10/10/24 23:26 Acetaminophen 500 Mg Tablet PO 500 mg Q6H PRN Administration Mild Pain (1-3) or Fever Aspirin 81 mg 10/10/24 09:00 10/11/24 09:12 Aspirin 81 Mg Enteric Tablet PO 81 mg DAILY JIGNA Administration Dextrose 12.5 gm 10/09/24 20:02 Dextrose 50% 25 Gm/50 Ml Syringe IV PUSH PRN PRN Hypoglycemia Protocol Diltiazem HCl 120 mg 10/11/24 12:00 10/11/24 12:22 Diltiazem Hcl Cd 120 Mg Cap.24hr PO 120 mg QAM JIGNA Administration Docusate Sodium 100 mg 10/10/24 09:00 10/11/24 09:12 Docusate Sodium 100 Mg Capsule PO 100 mg BID JIGNA Administration Escitalopram Oxalate 20 mg 10/10/24 09:00 10/11/24 09:12 Escitalopram Oxalate 10 Mg Tablet PO 20 mg DAILY JIGNA Administration Glucagon 1 mg 10/09/24 20:02 Glucagon For Inj 1 Mg Vial IM PRN PRN Hypoglycemia Protocol Glucose 15 gm 10/09/24 20:02 Glucose Oral Gel 15 Gm Of Glucse In 37.5 Gm Tube PO PRN PRN Hypoglycemia Protocol Heparin Sodium (Porcine) 5,500 units 10/10/24 02:45 Heparin Sodium 5,000 Units/Ml Vial IV PUSH PRN PRN aPTT less than 55 seconds Heparin Sodium (Porcine) 3,000 units 10/10/24 02:45 Heparin Sodium 5,000 Units/Ml Vial IV PUSH PRN PRN aPTT 55 - 70 seconds Hydromorphone HCl 0.5 mg 10/10/24 00:28 10/11/24 05:09 Hydromorphone Hcl Inj (*Crx) 2 Mg/Ml Vial IV PUSH 0.5 mg Q3H PRN Administration Pain Rated 7-10 Dextrose 1,000 mls @ 100 mls/hr 10/09/24 20:02 Dextrose 5% 1,000 Ml IVPB PRN PRN Hypoglycemia Protocol Heparin Sodium/Dextrose 25,000 units in 250 mls @ 8 mls/hr 10/10/24 02:45 10/11/24 12:56 Heparin Sodium/D5w 100 Units/Ml IV CONT 800 units/hr .Q24H JIGNA 8 mls/hr Titration Protocol 800 UNITS/HR Sodium Bicarbonate 100 meq/ 1,100 mls @ 150 mls/hr 10/10/24 21:30 10/11/24 13:02 Sodium Chloride IV CONT 150 mls/hr .Q7H20M JIGNA Administration Insulin Aspart 2 - 5 units 10/10/24 00:00 10/11/24 11:59 Insulin Aspart (*Bkc) 100 Units/Ml SUB-Q Not Given Q6HR JIGNA Protocol Levothyroxine Sodium 125 mcg 10/10/24 06:30 10/10/24 06:20 Levothyroxine Sodium 125 Mcg Tablet BY MOUTH 125 mcg Q48H JIGNA Administration Levothyroxine Sodium 150 mcg 10/11/24 06:30 10/11/24 07:35 Levothyroxine Sodium 150 Mcg Tablet PO 150 mcg Q48H JIGNA Administration Montelukast Sodium 10 mg 10/09/24 21:35 10/10/24 21:16 Montelukast Sodium 10 Mg Tablet BY MOUTH 10 mg QHS JIGNA Administration Prochlorperazine Edisylate 10 mg 10/11/24 13:48 Prochlorperazine Edisylate 10 Mg/2 Ml Vial IV PUSH Q6H PRN Nausea And Vomiting Radiology Results: ITS Impressions Abdomen/Pelvis CT 10/09/24 16:08 IMPRESSION: Trace pericardial effusion. Scattered calcified and noncalcified sub-6 mm pulmonary nodules, likely representing granulomas. Mild inflammatory change surrounding the pancreatic head and uncinate process, correlate for clinical findings of pancreatitis. Mild inflammatory stranding/edema in the proximal bile ducts, presumably related to the pancreatic process, noting that ascending cholangitis could appear similarly. Mild dilation of the third and fourth portions of the duodenum, presumably ileus related to the pancreatic process. Abdomen X-Ray 10/10/24 06:55 Impression: No acute abnormality is seen. Irregular markedly hyperdense opacity in the pelvis. Correlate for surgical/procedural history or traumatic history/foreign body. Renal Ultrasound 10/10/24 11:35 Impression: Unremarkable ultrasound of the kidneys and urinary bladder. Labs Labs: Laboratory Results - last 24 hr 10/10/24 10/10/24 10/10/24 17:51 18:08 22:21 WBC RBC Hgb Hct MCV MCH MCHC RDW Plt Count MPV Immature Gran % (Auto) Neut % (Auto) Lymph % (Auto) [place] % (Auto) Eos % (Auto) Baso % (Auto) Lymph # (Auto) [place] # (Auto) Eos # (Auto) Baso # (Auto) Abs Immat Gran (auto) Absolute Neuts (auto) Absolute Nucleated RBC Nucleated RBC % APTT > 200.0 H* 75.5 H Sodium Potassium Chloride Carbon Dioxide Anion Gap BUN Creatinine Estim Creat Clear Calc Estimated GFR Glucose POC Capillary Glucose 148 H Calcium Total Bilirubin AST ALT Alkaline Phosphatase Total Protein Albumin 10/10/24 10/11/24 10/11/24 23:33 05:00 11:09 WBC 10.4 H RBC 4.64 Hgb 12.8 Hct 40.2 MCV 86.6 MCH 27.6 MCHC 31.8 L RDW 14.8 H Plt Count 191 MPV 10.1 Immature Gran % (Auto) 0.7 H Neut % (Auto) 81.9 H Lymph % (Auto) 8.5 L [place] % (Auto) 6.2 Eos % (Auto) 1.9 Baso % (Auto) 0.8 Lymph # (Auto) 0.89 L [place] # (Auto) 0.7 H Eos # (Auto) 0.2 Baso # (Auto) 0.1 Abs Immat Gran (auto) 0.07 H Absolute Neuts (auto) 8.5 H Absolute Nucleated RBC 0.000 Nucleated RBC % 0.0 APTT 99.6 H Sodium 127 L Potassium 4.3 Chloride 94 L Carbon Dioxide 20 L Anion Gap 13 H BUN 35 H Creatinine 5.38 H Estim Creat Clear Calc 9 Estimated GFR 8 L Glucose 119 H POC Capillary Glucose 119 H 108 H Calcium 7.7 L Total Bilirubin 2.9 H AST 1047 H ALT 1440 H Alkaline Phosphatase 399 H Total Protein 5.5 L Albumin 3.0 L 10/11/24 12:28 WBC RBC Hgb Hct MCV MCH MCHC RDW Plt Count MPV Immature Gran % (Auto) Neut % (Auto) Lymph % (Auto) [place] % (Auto) Eos % (Auto) Baso % (Auto) Lymph # (Auto) [place] # (Auto) Eos # (Auto) Baso # (Auto) Abs Immat Gran (auto) Absolute Neuts (auto) Absolute Nucleated RBC Nucleated RBC % APTT 115.9 H Sodium Potassium Chloride Carbon Dioxide Anion Gap BUN Creatinine Estim Creat Clear Calc Estimated GFR Glucose POC Capillary Glucose Calcium Total Bilirubin AST ALT Alkaline Phosphatase Total Protein Albumin Quality VTE Prophylaxis VTE prophylaxis: mechanical ordered
--- NOTE | 2024-10-11 14:29 | P.PNGI_ITS ---
Progress Note: A&P Assessment and Plan (1) Elevated LFTs: Code(s): R79.89 - Other specified abnormal findings of blood chemistry Status: Acute Assessment and Plan: Despite a preserved ejection fraction, the patient presented with paroxysmal atrial fibrillation, which is suspected to have caused hepatic hypoperfusion. This resulted in a significant rise in AST and ALT, both of which are now improving following the hoahaoism of normal sinus rhythm and adequate hydration. However, , the patient's creatinine continues to worsen despite these interventions. Nephrology has been consulted for further evaluation and management. It is plausible that the same hypoperfusion event that led to ischemic hepatopathy also substantially compromised renal function more severely. Acute pancreatitis was considered, but the patient does not meet the required diagnostic criteria (2 out of 3: acute upper abdominal pain, elevated lipase, or imaging evidence of pancreatic inflammation). Her pain was consistent with diverticulitis, located pelvically and presenting subacutely rather than with an abrupt, severe onset. Importantly, her lipase levels remained consistently nor mal. Lastly, while a non-contrast CT was performed, it offers limited pancreatic detail, and any findings were minimal and not conclusive for pancreatitis. Subjective Date/time seen: 10/11/24 14:29 Interval history: Patient complaining of tiredness and some nausea. Cardiac arrhythmia reverted with Cardizem. Cardiology on board, recommended switching to oral and initiate Eliquis for prophylaxis of paroxysmal atrial fibrillation. Transaminases trending down. Exam Narrative: Abdomen: Soft, nontender, nondistended, no hepatosplenomegaly. Rest of the exam within normal limits. Objective Data Vital Signs Vital Signs: Vital Signs - 24 hr 10/10/24 16:00 10/10/24 16:00 10/10/24 16:00 Temperature 98.2 F Pulse Rate 78 78 77 Respiratory Rate 20 Blood Pressure 123/63 123/63 Pulse Oximetry 96 Oxygen Delivery Fraction of Inspired Oxygen 10/10/24 18:00 10/10/24 18:00 10/10/24 18:00 Temperature 98.0 F Pulse Rate 77 77 78 Respiratory Rate 24 H Blood Pressure 117/51 L 117/51 L Pulse Oximetry 97 Oxygen Delivery Fraction of Inspired Oxygen 10/10/24 20:00 10/10/24 20:00 10/10/24 20:00 Temperature 98.1 F Pulse Rate 79 79 77 Respiratory Rate 17 Blood Pressure 121/59 L 121/59 L Pulse Oximetry 98 Oxygen Delivery Fraction of Inspired Oxygen 10/10/24 20:56 10/10/24 21:00 10/10/24 21:58 Temperature Pulse Rate 78 Respiratory Rate Blood Pressure Pulse Oximetry 98 Oxygen Delivery Room Air Room Air Fraction of Inspired Oxygen 21 10/10/24 22:00 10/10/24 22:00 10/10/24 22:00 Temperature Pulse Rate 79 79 79 Respiratory Rate Blood Pressure 123/63 123/63 Pulse Oximetry Oxygen Delivery Fraction of Inspired Oxygen 10/10/24 23:45 10/11/24 00:00 10/11/24 00:00 Temperature 98.1 F Pulse Rate 96 96 Respiratory Rate 16 Blood Pressure 126/65 126/65 Pulse Oximetry 99 Oxygen Delivery Room Air Fraction of Inspired Oxygen 10/11/24 00:00 10/11/24 02:00 10/11/24 02:00 Temperature Pulse Rate 95 84 84 Respiratory Rate Blood Pressure 125/56 L 125/56 L Pulse Oximetry Oxygen Delivery Fraction of Inspired Oxygen 10/11/24 02:00 10/11/24 04:00 10/11/24 04:00 Temperature Pulse Rate 84 95 Respiratory Rate Blood Pressure Pulse Oximetry Oxygen Delivery Room Air Fraction of Inspired Oxygen 10/11/24 04:00 10/11/24 04:00 10/11/24 06:00 Temperature 98.4 F Pulse Rate 100 100 83 Respiratory Rate 17 Blood Pressure 149/82 H 149/82 H Pulse Oximetry 98 Oxygen Delivery Fraction of Inspired Oxygen 10/11/24 06:00 10/11/24 06:00 10/11/24 08:00 Temperature 98.6 F Pulse Rate 82 82 86 Respiratory Rate 22 H Blood Pressure 124/65 124/65 133/69 Pulse Oximetry 92 Oxygen Delivery Fraction of Inspired Oxygen 10/11/24 08:00 10/11/24 08:00 10/11/24 10:00 Temperature Pulse Rate 87 86 85 Respiratory Rate Blood Pressure 133/69 Pulse Oximetry Oxygen Delivery Fraction of Inspired Oxygen 10/11/24 10:00 10/11/24 10:00 10/11/24 11:43 Temperature 97.9 F Pulse Rate 85 81 Respiratory Rate 22 H Blood Pressure 130/57 L 130/57 L 135/57 L Pulse Oximetry 96 Oxygen Delivery Fraction of Inspired Oxygen 10/11/24 12:00 10/11/24 12:00 Temperature Pulse Rate 81 76 Respiratory Rate Blood Pressure 135/57 L Pulse Oximetry Oxygen Delivery Fraction of Inspired Oxygen Intake/Output Intake/Output: Intake & Output 10/08/24 10/09/24 10/10/24 10/11/24 23:59 23:59 23:59 23:59 Intake Total 2152.1 3757.5 2672.5 Output Total 0 Balance 2152.1 3757.5 2672.5 Meds/Results Medications: Active Medications Generic Name Dose Route Start Last Admin Trade Name Freq PRN Reason Stop Dose Admin Acetaminophen 500 mg 10/10/24 23:07 10/10/24 23:26 Acetaminophen 500 Mg Tablet PO 500 mg Q6H PRN Administration Mild Pain (1-3) or Fever Aspirin 81 mg 10/10/24 09:00 10/11/24 09:12 Aspirin 81 Mg Enteric Tablet PO 81 mg DAILY JIGNA Administration Dextrose 12.5 gm 10/09/24 20:02 Dextrose 50% 25 Gm/50 Ml Syringe IV PUSH PRN PRN Hypoglycemia Protocol Diltiazem HCl 120 mg 10/11/24 12:00 10/11/24 12:22 Diltiazem Hcl Cd 120 Mg Cap.24hr PO 120 mg QAM JIGNA Administration Docusate Sodium 100 mg 10/10/24 09:00 10/11/24 09:12 Docusate Sodium 100 Mg Capsule PO 100 mg BID JIGNA Administration Escitalopram Oxalate 20 mg 10/10/24 09:00 10/11/24 09:12 Escitalopram Oxalate 10 Mg Tablet PO 20 mg DAILY JIGNA Administration Glucagon 1 mg 10/09/24 20:02 Glucagon For Inj 1 Mg Vial IM PRN PRN Hypoglycemia Protocol Glucose 15 gm 10/09/24 20:02 Glucose Oral Gel 15 Gm Of Glucse In 37.5 Gm Tube PO PRN PRN Hypoglycemia Protocol Heparin Sodium (Porcine) 5,500 units 10/10/24 02:45 Heparin Sodium 5,000 Units/Ml Vial IV PUSH PRN PRN aPTT less than 55 seconds Heparin Sodium (Porcine) 3,000 units 10/10/24 02:45 Heparin Sodium 5,000 Units/Ml Vial IV PUSH PRN PRN aPTT 55 - 70 seconds Hydromorphone HCl 0.5 mg 10/10/24 00:28 10/11/24 05:09 Hydromorphone Hcl Inj (*Crx) 2 Mg/Ml Vial IV PUSH 0.5 mg Q3H PRN Administration Pain Rated 7-10 Dextrose 1,000 mls @ 100 mls/hr 10/09/24 20:02 Dextrose 5% 1,000 Ml IVPB PRN PRN Hypoglycemia Protocol Heparin Sodium/Dextrose 25,000 units in 250 mls @ 8 mls/hr 10/10/24 02:45 10/11/24 12:56 Heparin Sodium/D5w 100 Units/Ml IV CONT 800 units/hr .Q24H JIGNA 8 mls/hr Titration Protocol 800 UNITS/HR Sodium Bicarbonate 100 meq/ 1,100 mls @ 150 mls/hr 10/10/24 21:30 10/11/24 13:02 Sodium Chloride IV CONT 150 mls/hr .Q7H20M JIGNA Administration Insulin Aspart 2 - 5 units 10/10/24 00:00 10/11/24 11:59 Insulin Aspart (*Bkc) 100 Units/Ml SUB-Q Not Given Q6HR JIGNA Protocol Levothyroxine Sodium 125 mcg 10/10/24 06:30 10/10/24 06:20 Levothyroxine Sodium 125 Mcg Tablet BY MOUTH 125 mcg Q48H JIGNA Administration Levothyroxine Sodium 150 mcg 10/11/24 06:30 10/11/24 07:35 Levothyroxine Sodium 150 Mcg Tablet PO 150 mcg Q48H JIGNA Administration Montelukast Sodium 10 mg 10/09/24 21:35 10/10/24 21:16 Montelukast Sodium 10 Mg Tablet BY MOUTH 10 mg QHS JIGNA Administration Radiology Results: ITS Impressions Abdomen/Pelvis CT 10/09/24 16:08 IMPRESSION: Trace pericardial effusion. Scattered calcified and noncalcified sub-6 mm pulmonary nodules, likely representing granulomas. Mild inflammatory change surrounding the pancreatic head and uncinate process, correlate for clinical findings of pancreatitis. Mild inflammatory stranding/edema in the proximal bile ducts, presumably related to the pancreatic process, noting that ascending cholangitis could appear similarly. Mild dilation of the third and fourth portions of the duodenum, presumably ileus related to the pancreatic process. Abdomen X-Ray 10/10/24 06:55 Impression: No acute abnormality is seen. Irregular markedly hyperdense opacity in the pelvis. Correlate for surgical/procedural history or traumatic history/foreign body. Renal Ultrasound 10/10/24 11:35 Impression: Unremarkable ultrasound of the kidneys and urinary bladder. Labs Labs: Laboratory Results - last 24 hr 10/10/24 10/10/24 10/10/24 17:51 18:08 22:21 WBC RBC Hgb Hct MCV MCH MCHC RDW Plt Count MPV Immature Gran % (Auto) Neut % (Auto) Lymph % (Auto) [place] % (Auto) Eos % (Auto) Baso % (Auto) Lymph # (Auto) [place] # (Auto) Eos # (Auto) Baso # (Auto) Abs Immat Gran (auto) Absolute Neuts (auto) Absolute Nucleated RBC Nucleated RBC % APTT > 200.0 H* 75.5 H Sodium Potassium Chloride Carbon Dioxide Anion Gap BUN Creatinine Estim Creat Clear Calc Estimated GFR Glucose POC Capillary Glucose 148 H Calcium Total Bilirubin AST ALT Alkaline Phosphatase Total Protein Albumin 10/10/24 10/11/24 10/11/24 23:33 05:00 11:09 WBC 10.4 H RBC 4.64 Hgb 12.8 Hct 40.2 MCV 86.6 MCH 27.6 MCHC 31.8 L RDW 14.8 H Plt Count 191 MPV 10.1 Immature Gran % (Auto) 0.7 H Neut % (Auto) 81.9 H Lymph % (Auto) 8.5 L [place] % (Auto) 6.2 Eos % (Auto) 1.9 Baso % (Auto) 0.8 Lymph # (Auto) 0.89 L [place] # (Auto) 0.7 H Eos # (Auto) 0.2 Baso # (Auto) 0.1 Abs Immat Gran (auto) 0.07 H Absolute Neuts (auto) 8.5 H Absolute Nucleated RBC 0.000 Nucleated RBC % 0.0 APTT 99.6 H Sodium 127 L Potassium 4.3 Chloride 94 L Carbon Dioxide 20 L Anion Gap 13 H BUN 35 H Creatinine 5.38 H Estim Creat Clear Calc 9 Estimated GFR 8 L Glucose 119 H POC Capillary Glucose 119 H 108 H Calcium 7.7 L Total Bilirubin 2.9 H AST 1047 H ALT 1440 H Alkaline Phosphatase 399 H Total Protein 5.5 L Albumin 3.0 L 10/11/24 12:28 WBC RBC Hgb Hct MCV MCH MCHC RDW Plt Count MPV Immature Gran % (Auto) Neut % (Auto) Lymph % (Auto) [place] % (Auto) Eos % (Auto) Baso % (Auto) Lymph # (Auto) [place] # (Auto) Eos # (Auto) Baso # (Auto) Abs Immat Gran (auto) Absolute Neuts (auto) Absolute Nucleated RBC Nucleated RBC % APTT 115.9 H Sodium Potassium Chloride Carbon Dioxide Anion Gap BUN Creatinine Estim Creat Clear Calc Estimated GFR Glucose POC Capillary Glucose Calcium Total Bilirubin AST ALT Alkaline Phosphatase Total Protein Albumin
[2024-10-11] MEDS: ACETAMINOPHEN 500 MG TABLET PO (15:47)
[2024-10-11] MEDS: LORazepam INJ (*CRX) 2 MG/ML VIAL 0.5 MG IV PUSH ×2 (16:10→22:38)
[2024-10-11 17:17] LABS: Glucose Point of Care 127 mg/dl (65-105)
[2024-10-11] MEDS: ONDANSETRON INJ 4 MG/2 ML VIAL IV PUSH (18:48)
--- NOTE | 2024-10-11 19:30 | ECG_ITS ---
Test Date: 2024-10-11 19:49:14 Measurements Intervals [place] Rate: 84 P: 111 ND: 198 QRS: 47 QRSD: 145 T: 62 QT: 449 QTc: 533 Interpretive Statements SINUS RHYTHM LEFT BUNDLE BRANCH BLOCK BASELINE ARTIFACT- I, III, V5-V6 ABNORMAL ECG Compared to ECG 10/10/2024 06:14:31 No significant changes Electronically Signed On 10-12-2024 06:29:23 CDT by Alvin Morrow D.O.
[2024-10-11 19:55] LABS: Partial Thromboplastin Time 101.2 Seconds (22.3-36.8)
[2024-10-11] MEDS: MONTELUKAST SODIUM 10 MG TABLET BY MOUTH (20:05)
--- NOTE | 2024-10-11 20:25 | PC.NURSE ---
EKG done after zofran administration. QTc increased to 533. Owen Adame NP notified. NNO.
[2024-10-11 20:50] LABS: Glucose Point of Care 150 mg/dl (65-105)
[2024-10-12] VITALS (33 sets, daily range): BP systolic 126–161; BP diastolic 58–98; PULSE 80–108; RESP 16–24; TEMP 36.4–37; O2SAT 91–100
[2024-10-12 00:37] LABS: Glucose Point of Care 128 mg/dl (65-105)
[2024-10-12 02:07] LABS: Partial Thromboplastin Time 101.8 Seconds (22.3-36.8)
[2024-10-12 02:28] LABS: Glucose Point of Care 138 mg/dl (65-105)
--- NOTE | 2024-10-12 03:50 | PC.NURSE ---
0219 patient complained of difficulty breathing. pulse ox 80% on room air oxygen applied at 4L vs 188/105, 91% with 02 @4L. Coarse crackles throughout lung chacko. Rapid response called. 0223 vs 130/77, 114, 96% with oxygen at 4L. oxygen turned down to 2L. Patient maintained pulse ox. Dr. Limon assessed patient, chest xray done, Lasix given per orders. Patient resting quietly with no further distress.
[2024-10-12] MEDS: FUROSEMIDE INJ 40 MG/4 ML VIAL IV PUSH (04:39)
--- NOTE | 2024-10-12 05:10 | PC.NURSE ---
IV Fluids DC'd during rapid response. Patients lung sounds diminished at this time. No urine output. Dr. Limon notified with no further orders.
[2024-10-12 05:22] LABS: Hematocrit 34.5 % (37.0-47.0); Hemoglobin 11.6 g/dL (12.0-15.0); Mean Corpuscular HGB Conc 33.6 g/dl (32-36); Mean Corpuscular Hemoglobin 28.1 pg (26-34); Mean Corpuscular Volume 83.5 fl (80-100); Platelet Count Result 189 k/mm3 (150-375); Red Blood Count 4.13 M/mm3 (4.2-5.4); Red Cell Distribution Width 14.7 % (11.5-14.5); White Blood Count 9.3 K/mm3 (4.5-10.0)
[2024-10-12 05:33] LABS: Anion Gap 10 mmol/L (4-12); Blood Urea Nitrogen 37 mg/dL (7-17); Calcium 6.7 mg/dL (8.4-10.2); Carbon Dioxide 24 mmol/L (22-30); Chloride 90 mmol/L (98-107); Estimated CRCL calculation 8 ml/min; Estimated Glomerular Filt Rate 7; Glucose 119 mg/dL (65-110); Potassium 4.1 mmol/L (3.4-5.0); Sodium 124 mmol/L (137-145)
[2024-10-12] MEDS: LEVOTHYROXINE SODIUM 125 MCG TABLET BY MOUTH (05:45)
[2024-10-12 06:00] LABS: Partial Thromboplastin Time 93.8 Seconds (22.3-36.8)
--- NOTE | 2024-10-12 06:22 | PM.CCN ---
Critical Care Event Note Summary Code activated: No Narrative: Nursing staff called me around 02:00. Patient the patient was complaining of shortness of breath was sitting up in bed. Oxygen saturations were 82%. It took several minutes the patient's oxygen saturations improved up to 94-95%. I ordered a stat chest x-ray after exam demonstrated bilateral lower lobe crackles. Personally reviewed chest x-ray which demonstrated findings consistent with pulmonary vascular congestion and pulmonary edema. I ordered 40 mg of IV Lasix. Patient was initially tachypneic but after placement of oxygen respiratory rate improved. Patient reported improvement in her symptoms. She denies any chest pain or palpitations. She is still having moderate abdominal pain she in reports she just feels miserable. Patient has volume overload due to renal failure and continued IV fluid administration as with bicarb to try to compensate for the renal failure.IV fluids were discontinued. This case had a high probability of a clinically significant, sudden, or life threatening deterioration of this patient's condition which required my full and direct attention, intervention and personal management. Critical care time: 30 - 74 mins (30 minutes)
--- NOTE | 2024-10-12 09:00 | P.PNNP_ITS ---
Progress Note: A&P Assessment and Plan (1) CHAD (acute kidney injury): Code(s): N17.9 - Acute kidney failure, unspecified Status: Acute Assessment and Plan: * ongoing deterioration noted * relatively normal creatinine at baseline * suspect multifactorial: * hypotension/hemodynamic instability * prerenal factors * ARB use prior to admission * Afib * other(?) * evaluation to date noted: * normal renal ultrasound * CPK normal * urine studies pending (anuric at this time) * admission UA noted * now with issues with hyponatremia and volume overload * I think she need dialysis given her deterioration in the last 24 hours.... * follow trend of repeat labs and UOP (2) CHF (congestive heart failure): Code(s): I50.9 - Heart failure, unspecified Status: Acute Assessment and Plan: * recent Echo noted: * left ventricle is normal in size and systolic function * left ventricular ejection fraction is visually estimated to be 60-65% * paradoxical septal wall motion abnormality suggestive of bundle-branch block * right ventricle is normal in size and systolic function * no significant valvular abnormalities. * suspect volume overload/pulmonary edema/pleural effusion secondary to renal failure than CHF * failed trial of diuretic therapy * plan fluid removal with HD (3) Atrial fibrillation with RVR: Code(s): I48.91 - Unspecified atrial fibrillation Status: Acute Assessment and Plan: * Cardiology recommendations noted * diltiazem for rate control * on heparin gtt (4) Metabolic acidosis: Code(s): E87.20 - Acidosis, unspecified Status: Acute Assessment and Plan: * presumably due to CHAD/ARF * mild lactic acidosis contributing as well * outpatient metformin playing a role(?) * better s/p bicarb fluds (off now due to volume overload) * dialysis should help maintain stability (5) Elevated liver enzymes: Code(s): R74.8 - Abnormal levels of other serum enzymes Status: Acute Assessment and Plan: * as noted on admission * slow improvement noted * thought to be related to altered hemodynamics/previous hypotension * GI following (6) Anemia: Code(s): D64.9 - Anemia, unspecified Status: Acute Assessment and Plan: * related to CHAD and acute illness * no need for JAMISON as of yet * follow trend of H/H (7) Hypertension: Qualifiers: Hypertension type: unspecified Qualified Code(s): I10 - Essential (primary) hypertension Code(s): I10 - Essential (primary) hypertension Status: Chronic Assessment and Plan: * clinically better at this time * back on diltiazem (more so for rate control) * follow trend of hemodynamics (8) Diabetes: Code(s): E11.9 - Type 2 diabetes mellitus without complications Status: Acute Assessment and Plan: * follow accu-checks * glycemic control per hospitalist Long and extensive discussion( > 25 minutes) with patient and her at bedside regarding her ongoing renal failure now complicated by pulmonary edema/volume overload and acute hypoxic respiratory failure in association with anuria and unresponsiveness to diuretic therapy; I think she needs renal replacement therapy/dialysis at a minimun to optimize her volume status and hopefully improve her respiratory status as well. I discussed the procedure of dialysis, risks, benefits, pros, cons, and the need for placement of a dialysis catheter. They are both in agreement to proceed. Will consult Surgery for temporary HD catheter placement. Will continue to follow. Subjective Date/time seen: 10/12/24 9:00 Interval history: Follow-up for acute kidney injury/acute renal failure. Events noted overnight -- rapid response early this AM due to shortness of breath (complicated by anxiety) due to volume overload given CXR findings -- IVFs discontinued; now requiring 3L supplemental oxygen to maintain O2 saturati ons; no significant urine output in the last 24 - 48 hours and no improvement with IV diuretic therapy; at bedside and we discussed the situation in detail Exam Narrative: General: elderly and mildly ill-appearing female in NAD Heart: normal S1 and S2; no rub Lungs: coarse with bibasilar crackles Abdomen: soft, nontender, nondistended, positive bowel sounds Extremities: no cyanosis or clubbing; no edema Skin: warm and intact Objective Data Vital Signs Vital Signs: Vital Signs Temp Pulse Resp BP Pulse Ox O2 Del Method O2 Flow Rate 10/12/24 08:58 98 Nasal Cannula 3 10/12/24 08:00 93 Nasal Cannula 3 10/12/24 08:00 97.8 F 108 H 24 H 151/98 H 93 10/12/24 06:54 91 Nasal Cannula 3 10/12/24 06:00 98 10/12/24 04:00 92 10/12/24 03:58 98.1 F 99 20 148/81 H 98 10/12/24 03:34 96 96 Nasal Cannula 2 10/12/24 02:00 97 10/12/24 00:00 90 10/12/24 00:00 90 Room Air 10/12/24 00:00 97.9 F 90 16 130/69 92 10/11/24 22:00 100 10/11/24 20:00 83 10/11/24 20:00 97.8 F 87 16 137/72 93 10/11/24 20:00 82 Room Air 10/11/24 18:00 69 10/11/24 16:00 97.7 F 90 16 148/66 H 94 10/11/24 16:00 92 Intake/Output Intake/Output: Intake & Output 10/09/24 10/10/24 10/11/24 10/12/24 23:59 23:59 23:59 23:59 Intake Total 2152.1 3757.5 4850.7 836.8 Output Total 0 160 0 Balance 2152.1 3757.5 4690.7 836.8 Meds/Results Medications: Active Medications Generic Name Dose Route Start Last Admin Trade Name Freq PRN Reason Stop Dose Admin Acetaminophen 500 mg 10/10/24 23:07 10/11/24 15:47 Acetaminophen 500 Mg Tablet PO 500 mg Q6H PRN Administration Mild Pain (1-3) or Fever Aspirin 81 mg 10/10/24 09:00 10/12/24 09:45 Aspirin 81 Mg Enteric Tablet PO 81 mg DAILY JIGNA Administration Buspirone HCl 5 mg 10/12/24 11:30 Buspirone Hcl 5 Mg Tablet PO Q12HR [facility] Dextrose 12.5 gm 10/09/24 20:02 Dextrose 50% 25 Gm/50 Ml Syringe IV PUSH PRN PRN Hypoglycemia Protocol Diltiazem HCl 120 mg 10/11/24 12:00 10/12/24 09:45 Diltiazem Hcl Cd 120 Mg Cap.24hr PO 120 mg QAM JIGNA Administration Docusate Sodium 100 mg 10/10/24 09:00 10/12/24 08:17 Docusate Sodium 100 Mg Capsule PO Not Given BID JIGNA Escitalopram Oxalate 20 mg 10/10/24 09:00 10/12/24 09:45 Escitalopram Oxalate 10 Mg Tablet PO 20 mg DAILY JIGNA Administration Glucagon 1 mg 10/09/24 20:02 Glucagon For Inj 1 Mg Vial IM PRN PRN Hypoglycemia Protocol Glucose 15 gm 10/09/24 20:02 Glucose Oral Gel 15 Gm Of Glucse In 37.5 Gm Tube PO PRN PRN Hypoglycemia Protocol Heparin Sodium (Porcine) 5,500 units 10/10/24 02:45 Heparin Sodium 5,000 Units/Ml Vial IV PUSH PRN PRN aPTT less than 55 seconds Heparin Sodium (Porcine) 3,000 units 10/10/24 02:45 Heparin Sodium 5,000 Units/Ml Vial IV PUSH PRN PRN aPTT 55 - 70 seconds Hydromorphone HCl 0.5 mg 10/10/24 00:28 10/11/24 05:09 Hydromorphone Hcl Inj (*Crx) 2 Mg/Ml Vial IV PUSH 0.5 mg Q3H PRN Administration Pain Rated 7-10 Dextrose 1,000 mls @ 100 mls/hr 10/09/24 20:02 Dextrose 5% 1,000 Ml IVPB PRN PRN Hypoglycemia Protocol Heparin Sodium/Dextrose 25,000 units in 250 mls @ 0 mls/hr 10/10/24 02:45 10/12/24 10:15 Heparin Sodium/D5w 100 Units/Ml IV CONT 0 units/hr .Q0M JIGNA 0 mls/hr Titration Protocol 0 UNITS/HR Insulin Aspart 2 - 5 units 10/10/24 00:00 10/12/24 05:39 Insulin Aspart (*Bkc) 100 Units/Ml SUB-Q Not Given Q6HR [facility] Protocol Levothyroxine Sodium 125 mcg 10/10/24 06:30 10/12/24 05:45 Levothyroxine Sodium 125 Mcg Tablet BY MOUTH 125 mcg Q48H JIGNA Administration Levothyroxine Sodium 150 mcg 10/11/24 06:30 10/11/24 07:35 Levothyroxine Sodium 150 Mcg Tablet PO 150 mcg Q48H JIGNA Administration Montelukast Sodium 10 mg 10/09/24 21:35 10/11/24 20:05 Montelukast Sodium 10 Mg Tablet BY MOUTH 10 mg QHS JIGNA Administration Radiology Results: ITS Impressions Abdomen/Pelvis CT 10/09/24 16:08 IMPRESSION: Trace pericardial effusion. Scattered calcified and noncalcified sub-6 mm pulmonary nodules, likely representing granulomas. Mild inflammatory change surrounding the pancreatic head and uncinate process, correlate for clinical findings of pancreatitis. Mild inflammatory stranding/edema in the proximal bile ducts, presumably related to the pancreatic process, noting that ascending cholangitis could appear simila rly. Mild dilation of the third and fourth portions of the duodenum, presumably ileus related to the pancreatic process. Abdomen X-Ray 10/10/24 06:55 Impression: No acute abnormality is seen. Irregular markedly hyperdense opacity in the pelvis. Correlate for surgical/p rocedural history or traumatic history/foreign body. Renal Ultrasound 10/10/24 11:35 Impression: Unremarkable ultrasound of the kidneys and urinary bladder. Chest X-Ray 10/12/24 05:21 Impression: Moderate pulmonary edema pattern with small bilateral pleural effusions. Labs Labs: Laboratory Tests 10/12/24 05:08 WBC 9.3 Hgb 11.6 L Hct 34.5 L Plt Count 189 APTT 93.8 H Sodium 124 L Potassium 4.1 Chloride 90 L Carbon Dioxide 24 Anion Gap 10 BUN 37 H Creatinine 5.90 H Estim Creat Clear Calc 8 Estimated GFR 7 L Glucose 119 H Calcium 6.7 L Hep Bs Antigen Negative Hep Bs Antibody Negative
--- NOTE | 2024-10-12 09:09 | WPDGIPROGNO ---
Progress Note: A&P Assessment and Plan (1) Elevated liver enzymes: Code(s): R74.8 - Abnormal levels of other serum enzymes Status: Acute Assessment and Plan: As per yesterday, the patient's liver enzymes were improving, indicating recovering ischemic hepatopathy. However, the creatinine continues to worsen. Now the patient has evidence of fluid overload and not responding to intravenous diuretics. Awaiting nephrology re-evaluation to consider dialysis or other advice. (2) Acute renal failure: Code(s): N17.9 - Acute kidney failure, unspecified Status: Acute Subjective Date/time seen: 10/12/24 09:09 Interval history: the patient had an episode of severe shortness of breath last night, requiring supplemental oxygen. She received intravenous Lasix but has not urinated. This morning she continues to have shortness of breath, to the point that she has difficulty talking. Exam Narrative: Patient acutely distressed, anxious and cooperative. Abdomen: Somewhat distended, bowel sounds present, tender in the left lower quadrant. Objective Data Vital Signs Vital Signs: Vital Signs - 24 hr 10/11/24 10:00 10/11/24 10:00 10/11/24 10:00 Temperature Pulse Rate 85 85 Respiratory Rate Blood Pressure 130/57 L 130/57 L Pulse Oximetry Oxygen Delivery Oxygen Flow Rate 10/11/24 11:43 10/11/24 12:00 10/11/24 12:00 Temperature 97.9 F Pulse Rate 81 81 76 Respiratory Rate 22 H Blood Pressure 135/57 L 135/57 L Pulse Oximetry 96 Oxygen Delivery Oxygen Flow Rate 10/11/24 16:00 10/11/24 16:00 10/11/24 18:00 Temperature 97.7 F Pulse Rate 92 90 69 Respiratory Rate 16 Blood Pressure 148/66 H Pulse Oximetry 94 Oxygen Delivery Oxygen Flow Rate 10/11/24 20:00 10/11/24 20:00 10/11/24 20:00 Temperature 97.8 F Pulse Rate 82 87 83 Respiratory Rate 16 Blood Pressure 137/72 Pulse Oximetry 93 Oxygen Delivery Room Air Oxygen Flow Rate 10/11/24 22:00 10/12/24 00:00 10/12/24 00:00 Temperature 97.9 F Pulse Rate 100 90 90 Respiratory Rate 16 Blood Pressure 130/69 Pulse Oximetry 92 Oxygen Delivery Room Air Oxygen Flow Rate 10/12/24 00:00 10/12/24 02:00 10/12/24 03:34 Temperature Pulse Rate 90 97 96 Respiratory Rate Blood Pressure Pulse Oximetry 96 Oxygen Delivery Nasal Cannula Oxygen Flow Rate 2 10/12/24 03:58 10/12/24 04:00 10/12/24 06:00 Temperature 98.1 F Pulse Rate 99 92 98 Respiratory Rate 20 Blood Pressure 148/81 H Pulse Oximetry 98 Oxygen Delivery Oxygen Flow Rate 10/12/24 06:54 10/12/24 08:00 Temperature 97.8 F Pulse Rate 108 H Respiratory Rate 24 H Blood Pressure 151/98 H Pulse Oximetry 91 93 Oxygen Delivery Nasal Cannula Oxygen Flow Rate 3 Intake/Output Intake/Output: Intake & Output 10/09/24 10/10/24 10/11/24 10/12/24 23:59 23:59 23:59 23:59 Intake Total 2152.1 3757.5 4850.7 566.9 Output Total 0 160 0 Balance 2152.1 3757.5 4690.7 566.9 Meds/Results Medications: Active Medications Generic Name Dose Route Start Last Admin Trade Name Freq PRN Reason Stop Dose Admin Acetaminophen 500 mg 10/10/24 23:07 10/11/24 15:47 Acetaminophen 500 Mg Tablet PO 500 mg Q6H PRN Administration Mild Pain (1-3) or Fever Aspirin 81 mg 10/10/24 09:00 10/11/24 09:12 Aspirin 81 Mg Enteric Tablet PO 81 mg DAILY JIGNA Administration Dextrose 12.5 gm 10/09/24 20:02 Dextrose 50% 25 Gm/50 Ml Syringe IV PUSH PRN PRN Hypoglycemia Protocol Diltiazem HCl 120 mg 10/11/24 12:00 10/11/24 12:22 Diltiazem Hcl Cd 120 Mg Cap.24hr PO 120 mg QAM JIGNA Administration Docusate Sodium 100 mg 10/10/24 09:00 10/12/24 08:17 Docusate Sodium 100 Mg Capsule PO Not Given BID JIGNA Escitalopram Oxalate 20 mg 10/10/24 09:00 10/11/24 09:12 Escitalopram Oxalate 10 Mg Tablet PO 20 mg DAILY JIGNA Administration Glucagon 1 mg 10/09/24 20:02 Glucagon For Inj 1 Mg Vial IM PRN PRN Hypoglycemia Protocol Glucose 15 gm 10/09/24 20:02 Glucose Oral Gel 15 Gm Of Glucse In 37.5 Gm Tube PO PRN PRN Hypoglycemia Protocol Heparin Sodium (Porcine) 5,500 units 10/10/24 02:45 Heparin Sodium 5,000 Units/Ml Vial IV PUSH PRN PRN aPTT less than 55 seconds Heparin Sodium (Porcine) 3,000 units 10/10/24 02:45 Heparin Sodium 5,000 Units/Ml Vial IV PUSH PRN PRN aPTT 55 - 70 seconds Hydromorphone HCl 0.5 mg 10/10/24 00:28 10/11/24 05:09 Hydromorphone Hcl Inj (*Crx) 2 Mg/Ml Vial IV PUSH 0.5 mg Q3H PRN Administration Pain Rated 7-10 Dextrose 1,000 mls @ 100 mls/hr 10/09/24 20:02 Dextrose 5% 1,000 Ml IVPB PRN PRN Hypoglycemia Protocol Heparin Sodium/Dextrose 25,000 units in 250 mls @ 8 mls/hr 10/10/24 02:45 10/12/24 06:08 Heparin Sodium/D5w 100 Units/Ml IV CONT 800 units/hr .Q24H JIGNA 8 mls/hr Titration Protocol 800 UNITS/HR Insulin Aspart 2 - 5 units 10/10/24 00:00 10/12/24 05:39 Insulin Aspart (*Bkc) 100 Units/Ml SUB-Q Not Given Q6HR JIGNA Protocol Levothyroxine Sodium 125 mcg 10/10/24 06:30 10/12/24 05:45 Levothyroxine Sodium 125 Mcg Tablet BY MOUTH 125 mcg Q48H JIGNA Administration Levothyroxine Sodium 150 mcg 10/11/24 06:30 10/11/24 07:35 Levothyroxine Sodium 150 Mcg Tablet PO 150 mcg Q48H JIGNA Administration Montelukast Sodium 10 mg 10/09/24 21:35 10/11/24 20:05 Montelukast Sodium 10 Mg Tablet BY MOUTH 10 mg QHS JIGNA Administration Radiology Results: ITS Impressions Abdomen/Pelvis CT 10/09/24 16:08 IMPRESSION: Trace pericardial effusion. Scattered calcified and noncalcified sub-6 mm pulmonary nodules, likely representing granulomas. Mild inflammatory change surrounding the pancreatic head and uncinate process, correlate for clinical findings of pancreatitis. Mild inflammatory stranding/edema in the proximal bile ducts, presumably related to the pancreatic process, noting that ascending cholangitis could appear similarly. Mild dilation of the third and fourth portions of the duodenum, presumably ileus related to the pancreatic process. Abdomen X-Ray 10/10/24 06:55 Impression: No acute abnormality is seen. Irregular markedly hyperdense opacity in the pelvis. Correlate for surgical/procedural history or traumatic history/foreign body. Renal Ultrasound 10/10/24 11:35 Impression: Unremarkable ultrasound of the kidneys and urinary bladder. Chest X-Ray 10/12/24 05:21 Impression: Moderate pulmonary edema pattern with small bilateral pleural effusions. Labs Labs: Laboratory Results - last 24 hr 10/11/24 10/11/24 10/11/24 11:09 12:28 17:01 WBC RBC Hgb Hct MCV MCH MCHC RDW Plt Count MPV APTT 115.9 H Sodium Potassium Chloride Carbon Dioxide Anion Gap BUN Creatinine Estim Creat Clear Calc Estimated GFR Glucose POC Capillary Glucose 108 H 127 H Calcium 10/11/24 10/11/24 10/12/24 19:19 20:47 00:34 WBC RBC Hgb Hct MCV MCH MCHC RDW Plt Count MPV APTT 101.2 H Sodium Potassium Chloride Carbon Dioxide Anion Gap BUN Creatinine Estim Creat Clear Calc Estimated GFR Glucose POC Capillary Glucose 150 H 128 H Calcium 10/12/24 10/12/24 10/12/24 01:21 02:25 05:08 WBC 9.3 RBC 4.13 L Hgb 11.6 L Hct 34.5 L MCV 83.5 MCH 28.1 MCHC 33.6 RDW 14.7 H Plt Count 189 MPV 10.0 APTT 101.8 H 93.8 H Sodium 124 L Potassium 4.1 Chloride 90 L Carbon Dioxide 24 Anion Gap 10 BUN 37 H Creatinine 5.90 H Estim Creat Clear Calc 8 Estimated GFR 7 L Glucose 119 H POC Capillary Glucose 138 H Calcium 6.7 L
[2024-10-12] MEDS: ASPIRIN 81 MG ENTERIC TABLET PO (09:45)
[2024-10-12] MEDS: ESCITALOPRAM OXALATE 10 MG TABLET 20 MG PO (09:45)
[2024-10-12] MEDS: dilTIAZem HCL CD 120 MG CAP.24HR PO (09:45)
[2024-10-12 10:57] LABS: Albumin Level 2.9 g/dL (3.5-5.1); Alkaline Phosphatase 444 U/L (38-126); Anion Gap 11 mmol/L (4-12); Aspartate Amino Transferase 491 U/L (14-36); Bilirubin,Total 1.8 mg/dL (0.2-1.3); Blood Urea Nitrogen 37 mg/dL (7-17); Calcium 7.1 mg/dL (8.4-10.2); Carbon Dioxide 24 mmol/L (22-30); Chloride 88 mmol/L (98-107); Estimated CRCL calculation 8 ml/min; Estimated Glomerular Filt Rate 7; Glucose 166 mg/dL (65-110); Potassium 4.3 mmol/L (3.4-5.0); Sodium 123 mmol/L (137-145); Total Protein 5.4 g/dL (6.3-8.2)
[2024-10-12 10:58] LABS: Alanine Aminotransferase 957 U/L (6-35)
[2024-10-12 11:32] LABS: Hepatitis B Surface Antigen Negative (Negative)
[2024-10-12 11:49] LABS: Hepatitis B Surface Anti Res Negative
[2024-10-12 12:28] LABS: Glucose Point of Care 163 mg/dl (65-105)
[2024-10-12] MEDS: busPIRone HCL 5 MG TABLET PO ×2 (12:43→20:23)
--- NOTE | 2024-10-12 13:34 | P.PNCA_ITS ---
Progress Note: A&P Assessment and Plan (1) CAD (coronary artery disease): Qualifiers: Coronary Disease-Associated Artery/Lesion type: unspecified vessel or lesion type [place] vs. transplanted heart: [place] heart Associated angina: without angina Qualified Code(s): I25.10 - Atherosclerotic heart disease of [place] coronary artery without angina pectoris Code(s): I25.10 - Atherosclerotic heart disease of [place] coronary artery without angina pectoris Status: Acute (2) Atrial fibrillation with RVR: Code(s): I48.91 - Unspecified atrial fibrillation Status: Acute (3) Hyperlipidemia: Qualifiers: Hyperlipidemia type: mixed hyperlipidemia Qualified Code(s): E78.2 - Mixed hyperlipidemia Code(s): E78.5 - Hyperlipidemia, unspecified Status: Acute Plan 78-year-old woman with coronary artery disease status post PCI, diabetes, hypertension, and hyperlipidemia presented with generalized weakness Paroxysmal atrial fibrillation with RVR, new diagnosis -When ther are no other procedures planned, convert Heparin drip to Eliquis 5mg BID. -Continue PO Diltiazem. Coronary artery disease status post PCI -continue aspirin 81 mg p.o. daily Hyperlipidemia -resume rosuvastatin on discharge -symptoms unlikely related to statin as CK is normal Pt can follow up with Dr. Veloz in clinic Cardiology will follow along PRN. Subjective Date/time seen: 10/12/24 13:34 Interval history: Reason for visit: AFIB Date of service 10/12: Feeling ill, renal function worsening. Rate controlled on tele. Review of Systems Cardiovascular: Cardiovascular: Reports as per HPI Exam Const: Other: Ill appearing female HENMT: Mouth: Yes dry mucous membranes Eyes: Sclera: sclerae normal Cardio: Rhythm: abnormal rhythm irregularly irregular Neuro: Speech: normal speech Psych: Affect: normal affect Objective Data Vital Signs Vital Signs: Vital Signs - 24 hr 10/11/24 16:00 10/11/24 16:00 10/11/24 18:00 Temperature 36.5 C Pulse Rate 92 90 69 Respiratory Rate 16 Blood Pressure 148/66 H Pulse Oximetry 94 Oxygen Delivery Oxygen Flow Rate 10/11/24 20:00 10/11/24 20:00 10/11/24 20:00 Temperature 36.6 C Pulse Rate 82 87 83 Respiratory Rate 16 Blood Pressure 137/72 Pulse Oximetry 93 Oxygen Delivery Room Air Oxygen Flow Rate 10/11/24 22:00 10/12/24 00:00 10/12/24 00:00 Temperature 36.6 C Pulse Rate 100 90 90 Respiratory Rate 16 Blood Pressure 130/69 Pulse Oximetry 92 Oxygen Delivery Room Air Oxygen Flow Rate 10/12/24 00:00 10/12/24 02:00 10/12/24 03:34 Temperature Pulse Rate 90 97 96 Respiratory Rate Blood Pressure Pulse Oximetry 96 Oxygen Delivery Nasal Cannula Oxygen Flow Rate 2 10/12/24 03:58 10/12/24 04:00 10/12/24 06:00 Temperature 36.7 C Pulse Rate 99 92 98 Respiratory Rate 20 Blood Pressure 148/81 H Pulse Oximetry 98 Oxygen Delivery Oxygen Flow Rate 10/12/24 06:54 10/12/24 08:00 10/12/24 08:00 Temperature 36.6 C Pulse Rate 108 H Respiratory Rate 24 H Blood Pressure 151/98 H Pulse Oximetry 91 93 93 Oxygen Delivery Nasal Cannula Nasal Cannula Oxygen Flow Rate 3 3 10/12/24 09:23 10/12/24 11:53 Temperature 36.6 C Pulse Rate 96 Respiratory Rate 22 H Blood Pressure 141/73 H Pulse Oximetry 98 96 Oxygen Delivery Nasal Cannula Oxygen Flow Rate 3 Intake/Output Intake/Output: Intake & Output 10/09/24 10/10/24 10/11/24 10/12/24 23:59 23:59 23:59 23:59 Intake Total 2152.1 3757.5 4850.7 836.8 Output Total 0 160 0 Balance 2152.1 3757.5 4690.7 836.8 Meds/Results Medications: Active Medications Generic Name Dose Route Start Last Admin Trade Name Prestonq PRN Reason Stop Dose Admin Acetaminophen 500 mg 10/10/24 23:07 10/11/24 15:47 Acetaminophen 500 Mg Tablet PO 500 mg Q6H PRN Administration Mild Pain (1-3) or Fever Aspirin 81 mg 10/10/24 09:00 10/12/24 09:45 Aspirin 81 Mg Enteric Tablet PO 81 mg DAILY JIGNA Administration Buspirone HCl 5 mg 10/12/24 11:30 10/12/24 12:43 Buspirone Hcl 5 Mg Tablet PO 5 mg Q12HR JIGNA Administration Dextrose 12.5 gm 10/09/24 20:02 Dextrose 50% 25 Gm/50 Ml Syringe IV PUSH PRN PRN Hypoglycemia Protocol Diltiazem HCl 120 mg 06/09/25 12:00 10/12/24 09:45 Diltiazem Hcl Cd 120 Mg Cap.24hr PO 120 mg QAM JIGNA Administration Docusate Sodium 100 mg 10/10/24 09:00 10/12/24 08:17 Docusate Sodium 100 Mg Capsule PO Not Given BID JIGNA Escitalopram Oxalate 20 mg 10/10/24 09:00 10/12/24 09:45 Escitalopram Oxalate 10 Mg Tablet PO 20 mg DAILY JIGNA Administration Glucagon 1 mg 10/09/24 20:02 Glucagon For Inj 1 Mg Vial IM PRN PRN Hypoglycemia Protocol Glucose 15 gm 10/09/24 20:02 Glucose Oral Gel 15 Gm Of Glucse In 37.5 Gm Tube PO PRN PRN Hypoglycemia Protocol Heparin Sodium (Porcine) 5,500 units 10/10/24 02:45 Heparin Sodium 5,000 Units/Ml Vial IV PUSH PRN PRN aPTT less than 55 seconds Heparin Sodium (Porcine) 3,000 units 10/10/24 02:45 Heparin Sodium 5,000 Units/Ml Vial IV PUSH PRN PRN aPTT 55 - 70 seconds Hydromorphone HCl 0.5 mg 10/10/24 00:28 10/11/24 05:09 Hydromorphone Hcl Inj (*Crx) 2 Mg/Ml Vial IV PUSH 0.5 mg Q3H PRN Administration Pain Rated 7-10 Dextrose 1,000 mls @ 100 mls/hr 10/09/24 20:02 Dextrose 5% 1,000 Ml IVPB PRN PRN Hypoglycemia Protocol Heparin Sodium/Dextrose 25,000 units in 250 mls @ 0 mls/hr 10/10/24 02:45 10/12/24 10:15 Heparin Sodium/D5w 100 Units/Ml IV CONT 0 units/hr .Q0M JIGNA 0 mls/hr Titration Protocol 0 UNITS/HR Albumin Human 50 mls @ 999 mls/hr 10/12/24 12:35 Albutein IVPB 11/11/24 12:34 Q10M PRN HYPOTENSION Sodium Chloride 1,000 mls @ 999 mls/hr 10/12/24 12:35 Normal Saline Iv IV CONT 10/12/24 13:35 .Q1H1M ONE Insulin Aspart 2 - 5 units 10/10/24 00:00 10/12/24 05:39 Insulin Aspart (*Bkc) 100 Units/Ml SUB-Q Not Given Q6HR [facility] Protocol Levothyroxine Sodium 125 mcg 10/10/24 06:30 10/12/24 05:45 Levothyroxine Sodium 125 Mcg Tablet BY MOUTH 125 mcg Q48H JIGNA Administration Levothyroxine Sodium 150 mcg 10/11/24 06:30 10/11/24 07:35 Levothyroxine Sodium 150 Mcg Tablet PO 150 mcg Q48H JIGNA Administration Montelukast Sodium 10 mg 10/09/24 21:35 10/11/24 20:05 Montelukast Sodium 10 Mg Tablet BY MOUTH 10 mg QHS JIGNA Administration Radiology Results: ITS Impressions Abdomen/Pelvis CT 10/09/24 16:08 IMPRESSION: Trace pericardial effusion. Scattered calcified and noncalcified sub-6 mm pulmonary nodules, likely representing granulomas. Mild inflammatory change surrounding the pancreatic head and uncinate process, correlate for clinical findings of pancreatitis. Mild inflammatory stranding/edema in the proximal bile ducts, presumably related to the pancreatic process, noting that ascending cholangitis could appear similarly. Mild dilation of the third and fourth portions of the duodenum, presumably ileus related to the pancreatic process. Abdomen X-Ray 10/10/24 06:55 Impression: No acute abnormality is seen. Irregular markedly hyperdense opacity in the pelvis. Correlate for surgical/procedural history or traumatic history/foreign body. Renal Ultrasound 10/10/24 11:35 Impression: Unremarkable ultrasound of the kidneys and urinary bladder. Chest X-Ray 10/12/24 05:21 Impression: Moderate pulmonary edema pattern with small bilateral pleural effusions. Labs Labs: Laboratory Results - last 24 hr 10/11/24 10/11/24 10/11/24 17:01 19:19 20:47 WBC RBC Hgb Hct MCV MCH MCHC RDW Plt Count MPV APTT 101.2 H Sodium Potassium Chloride Carbon Dioxide Anion Gap BUN Creatinine Estim Creat Clear Calc Estimated GFR Glucose POC Capillary Glucose 127 H 150 H Calcium Total Bilirubin AST ALT Alkaline Phosphatase Total Protein Albumin Hep Bs Antigen Hep Bs Antibody 10/12/24 10/12/24 10/12/24 00:34 01:21 02:25 WBC RBC Hgb Hct MCV MCH MCHC RDW Plt Count MPV APTT 101.8 H Sodium Potassium Chloride Carbon Dioxide Anion Gap BUN Creatinine Estim Creat Clear Calc Estimated GFR Glucose POC Capillary Glucose 128 H 138 H Calcium Total Bilirubin AST ALT Alkaline Phosphatase Total Protein Albumin Hep Bs Antigen Hep Bs Antibody 10/12/24 10/12/24 10/12/24 05:08 10:27 12:25 WBC 9.3 RBC 4.13 L Hgb 11.6 L Hct 34.5 L MCV 83.5 MCH 28.1 MCHC 33.6 RDW 14.7 H Plt Count 189 MPV 10.0 APTT 93.8 H Sodium 124 L 123 L Potassium 4.1 4.3 Chloride 90 L 88 L Carbon Dioxide 24 24 Anion Gap 10 11 BUN 37 H 37 H Creatinine 5.90 H 6.11 H Estim Creat Clear Calc 8 8 Estimated GFR 7 L 7 L Glucose 119 H 166 H POC Capillary Glucose 163 H Calcium 6.7 L 7.1 L Total Bilirubin 1.8 H AST 491 H ALT 957 H Alkaline Phosphatase 444 H Total Protein 5.4 L Albumin 2.9 L Hep Bs Antigen Negative Hep Bs Antibody Negative
--- NOTE | 2024-10-12 15:26 | PM.CNGS ---
Assessment and Plan Assessment and plan (1) CHAD (acute kidney injury): Code(s): N17.9 - Acute kidney failure, unspecified Status: Acute Assessment and Plan: Patient continues to have worsening were renal function and volume overload despite trying diuretics. Will plan to proceed with bedside temporary [place] hemodialysis catheter placement. Heparin drip has been held since 10:00 a.m.. I discussed the procedure, risks, benefits, and alternatives. Questions were answered. (2) CHF (congestive heart failure): Code(s): I50.9 - Heart failure, unspecified Status: Acute (3) Atrial fibrillation with RVR: Code(s): I48.91 - Unspecified atrial fibrillation Status: Acute History of Present Illness Consult details Consult date: 10/12/24 Reason for consult: other (dialysis access) Requesting physician: Bandar Delvalle MD Narrative: This is a 78-year-old woman who I am asked to see for placement of a temporary dialysis catheter. She has been hospitalized since 10/09/2024 with generalized weakness and acute renal failure. A CT at her initial presentation also showed evidence of pancreatitis. She has continued to have worsening renal function despite IV hydration and other medical efforts. She is having muscle aches and continued weakness and is now in need of hemodialysis. Review of Systems Review of Systems: All systems reviewed & are unremarkable except as noted in HPI and below Constitutional: Constitutional: Reports body ache(s) Eyes: Eyes: Denies change in vision ENT: Denies hearing loss, Denies neck pain and Denies sore throat Cardiovascular: Cardiovascular: Denies chest pain and Denies dyspnea Respiratory: Respiratory: Denies cough, Denies dyspnea and Denies wheezing Gastrointestinal: Gastrointestinal: Reports abdominal pain and Reports nausea Genitourinary: Genitourinary: Denies hematuria and Denies dysuria Musculoskeletal: Musculoskeletal: Denies arthralgias, Denies joint swelling and Denies neck pain Allergic/Immunologic: Allergic/Immunologic: Denies wheezing [facility] Past Medical History Medical History (Updated 10/12/24 @ 11:57 by Bandar Delvalle MD) BMI 25.0-25.9,adult BMI 31.0-31.9,adult BMI 26.0-26.9,adult BMI 27.0-27.9,adult Diastolic heart failure Diverticulitis BMI 29.0-29.9,adult Fatty liver Olecranon bursitis of left elbow Chronic back pain Suspected chronic obstructive pulmonary disease based on initial evaluation Pneumonia Asthma exacerbation in COPD Thyroid cancer Coronary artery disease AR in 2010 status post stent x2. Polymyalgia rheumatica Left bundle branch block Degenerative joint disease Type 2 diabetes mellitus Fibromyalgia Hypertension Hypothyroidism Familial tremor Anxiety with depression Vitamin D deficiency Hyperlipidemia Hearing loss Orthostatic hypotension Surgical History Surgical History History of epidermal inclusion cyst excision Left neck. History of hysterectomy History of coronary artery stent placement History of cholecystectomy History of partial thyroidectomy History of colonoscopy with polypectomy History of breast biopsy Family History Family History Grandparent Diabetes mellitus Mother Hypertension Heart disease Ovarian cancer Father Malignant neoplasm of prostate Cerebrovascular accident Daughter Breast cancer Social History Social History Social History: Surrogate medical decision maker: Allen Tello, spouse. Code status: Full code. Smoking packs per day: 1 Smoking cigarettes per day: 20.0 Smoking status: Former smoker Tobacco type: cigarettes Second hand tobacco smoke exposure: Yes Smoking end date: 02/24/99 Alcohol intake: never Substance use: current Substance use type: marijuana Other substance usage details: tea Last use: 8 mos ago Do You Feel Safe in your Home?: Yes Lack of Transportation: No Lack of Food: Never True Current Housing: I Have Housing Concerned About Future Housing: No Difficulty Paying Gas/Electric Bills: No Difficulty Paying for Meds: No Currently Unemployed: No Education: Trade/Vocational Certificate Difficulty w/ Childcare or Family Care: No Living arrangements: with family Additional living arrangements comments: Lives in [place] with spouse. Spiritual care concerns: No Meds Home Medications and Allergies Home Medications ?Medication ?Instructions ?Recorded ?Confirmed ?Type aspirin 81 mg tablet,delayed 81 mg PO DAILY 03/09/19 10/09/24 History release (Adult Low Dose Aspirin) cyanocobalamin (vitamin B-12) 1,000 mcg PO QPM 10/25/20 10/09/24 History 1,000 mcg tablet (Vitamin B-12) ascorbic acid (vitamin C) 1,000 mg 1 g PO QPM 10/03/21 10/09/24 History tablet cholecalciferol (vitamin D3) 25 2,000 unit PO DAILY 01/26/22 10/09/24 History mcg (1,000 unit) tablet omega-3 fatty acids 1,000 mg 1,000 mg PO QPM 01/26/22 10/09/24 History capsule turmeric 1,000 mg BYMOUTH DAILY 01/26/22 10/09/24 History biotin 300 mcg tablet 300 mg BYMOUTH DAILY 02/23/24 10/09/24 History Folate 1,330 mg PO DAILY 03/15/24 10/09/24 History calcium 600 mg capsule 1,200 mg PO HS 03/15/24 10/09/24 History calcium polycarbophil 625 mg 625 mg PO DAILY 03/15/24 10/09/24 History tablet (Fiber (calcium polycarbophil)) escitalopram oxalate 20 mg tablet See Rx Instructions .Route 05/19/24 10/09/24 Rx .COMPLEX #90 tabs levothyroxine 150 mcg tablet 150 mcg PO EVERY OTHER DAY #45 tabs 06/14/24 10/09/24 Rx losartan 50 mg tablet 50 mg PO DAILY #90 tabs 06/17/24 10/09/24 Rx levothyroxine 125 mcg tablet See Rx Instructions .Route 07/05/24 10/09/24 Rx .COMPLEX #90 tabs montelukast 10 mg tablet See Rx Instructions .Route 07/09/24 10/09/24 Rx .COMPLEX #90 tabs rosuvastatin 40 mg tablet See Rx Instructions .Route 07/09/24 10/09/24 Rx .COMPLEX #90 tabs metformin 500 mg tablet,extended See Rx Instructions .Route 08/16/24 10/09/24 Rx release 24 hr .COMPLEX #360 tabs empagliflozin 25 mg tablet 25 mg PO DAILY #90 tabs 09/06/24 10/09/24 Rx (Jardiance) linagliptin 5 mg tablet (Tradjenta) 5 mg PO QAM #90 tabs 09/06/24 10/09/24 Rx levofloxacin 750 mg tablet 750 mg PO Q24H 10/09/24 10/09/24 History metronidazole 500 mg tablet 500 mg PO Q8H 10/09/24 10/09/24 History Allergies Allergy/AdvReac Type Severity Reaction Status Date / Time adhesive tape Allergy Intermediate Rash Verified 10/09/24 17:46 Iodinated Contrast Media Allergy Mild Hives Verified 10/09/24 17:46 iodine Allergy Unknown Hives Verified 10/09/24 17:46 codeine AdvReac Unknown Hallucinati Verified 10/09/24 17:46 ng morphine AdvReac Unknown Hallucinati Verified 10/09/24 17:46 ng Vital Signs Vital Signs - 24 hr 10/11/24 16:00 10/11/24 16:00 10/11/24 18:00 Temperature 97.7 F Pulse Rate 92 90 69 Respiratory Rate 16 Blood Pressure 148/66 H Pulse Oximetry 94 Oxygen Delivery Oxygen Flow Rate 10/11/24 20:00 10/11/24 20:00 10/11/24 20:00 Temperature 97.8 F Pulse Rate 82 87 83 Respiratory Rate 16 Blood Pressure 137/72 Pulse Oximetry 93 Oxygen Delivery Room Air Oxygen Flow Rate 10/11/24 22:00 10/12/24 00:00 10/12/24 00:00 Temperature 97.9 F Pulse Rate 100 90 90 Respiratory Rate 16 Blood Pressure 130/69 Pulse Oximetry 92 Oxygen Delivery Room Air Oxygen Flow Rate 10/12/24 00:00 10/12/24 02:00 10/12/24 03:34 Temperature Pulse Rate 90 97 96 Respiratory Rate Blood Pressure Pulse Oximetry 96 Oxygen Delivery Nasal Cannula Oxygen Flow Rate 2 10/12/24 03:58 10/12/24 04:00 10/12/24 06:00 Temperature 98.1 F Pulse Rate 99 92 98 Respiratory Rate 20 Blood Pressure 148/81 H Pulse Oximetry 98 Oxygen Delivery Oxygen Flow Rate 10/12/24 06:54 10/12/24 08:00 10/12/24 08:00 Temperature 97.8 F Pulse Rate 108 H Respiratory Rate 24 H Blood Pressure 151/98 H Pulse Oximetry 91 93 93 Oxygen Delivery Nasal Cannula Nasal Cannula Oxygen Flow Rate 3 3 10/12/24 08:00 10/12/24 09:23 10/12/24 10:00 Temperature Pulse Rate 106 H 101 H Respiratory Rate Blood Pressure Pulse Oximetry 98 Oxygen Delivery Nasal Cannula Oxygen Flow Rate 3 10/12/24 11:53 10/12/24 12:00 10/12/24 12:00 Temperature 97.9 F Pulse Rate 96 108 H Respiratory Rate 22 H Blood Pressure 141/73 H Pulse Oximetry 96 96 Oxygen Delivery Nasal Cannula Oxygen Flow Rate 3 10/12/24 14:00 Temperature Pulse Rate 106 H Respiratory Rate Blood Pressure Pulse Oximetry Oxygen Delivery Oxygen Flow Rate Exam Const: General: alert; No acute distress Orientation/consciousness: patient oriented x3 Limitations: no limitations HENMT: Head: normocephalic and atraumatic Ears: hearing grossly normal bilaterally Face/Nose/Sinus: Normal external nose present and Normal nares present Mouth: Yes Normal oral and palatal mucosa present and Yes moist mucous membranes Eyes: General: appearance normal, both eyes and all related structures Conjunctivae: conjunctivae normal Sclera: sclerae normal Pupils: Equal, round and reactive pupils present EOM: EOMs intact bilaterally Neck: Neck: normal visual inspection, full ROM, no lymphadenopathy, supple and no JVD Lymphatic: no lymphadenopathy noted Chest: Chest palpation & inspection: normal inspection of the chest Resp: Effort & Inspection: normal respiratory effort and able to speak in complete sentences Auscultation: clear to auscultation bilaterally Percussion: percussion normal Cardio: Jugular venous distension: no JVD Rate: regular rate Rhythm: regular rhythm Heart sounds: S1 normal heart sound present and S2 normal heart sound present Peripheral pulses: Peripheral pulses 2+ throughout GI: Inspection: normal to inspection Auscultation: normal bowel sounds : General: Yes no CVA tenderness Back/Spine/Pelvis: Back: no CVA tenderness Skin: General skin exam: normal color and dry skin Neuro: General: patient oriented x3, gait normal, moves all extremities, no focal motor deficits and CN's II-XI intact bilaterally Cranial nerves: Yes Equal, round and reactive pupils present Speech: normal speech Extrem: General: normal to inspection and capillary refill normal Results Labs 10/12/24 05:08 10/12/24 10:27 Labs: Abnormal lab results 10/11/24 10/11/24 10/11/24 Range/Units 17:01 19:19 20:47 RBC (4.2-5.4) M/mm3 Hgb (12.0-15.0) g/dL Hct (37.0-47.0) % RDW (11.5-14.5) % APTT 101.2 H (22.3-36.8) Seconds Sodium (137-145) mmol/L Chloride (98-107) mmol/L BUN (7-17) mg/dL Creatinine (0.7-1.0) mg/dL Estimated GFR (59 - ) Glucose (65-110) mg/dL POC Capillary Glucose 127 H 150 H (65-105) mg/dl Calcium (8.4-10.2) mg/dL Total Bilirubin (0.2-1.3) mg/dL AST (14-36) U/L ALT (6-35) U/L Alkaline Phosphatase (38-126) U/L Total Protein (6.3-8.2) g/dL Albumin (3.5-5.1) g/dL 10/12/24 10/12/24 10/12/24 Range/Units 00:34 01:21 02:25 RBC (4.2-5.4) M/mm3 Hgb (12.0-15.0) g/dL Hct (37.0-47.0) % RDW (11.5-14.5) % APTT 101.8 H (22.3-36.8) Seconds Sodium (137-145) mmol/L Chloride (98-107) mmol/L BUN (7-17) mg/dL Creatinine (0.7-1.0) mg/dL Estimated GFR (59 - ) Glucose (65-110) mg/dL POC Capillary Glucose 128 H 138 H (65-105) mg/dl Calcium (8.4-10.2) mg/dL Total Bilirubin (0.2-1.3) mg/dL AST (14-36) U/L ALT (6-35) U/L Alkaline Phosphatase (38-126) U/L Total Protein (6.3-8.2) g/dL Albumin (3.5-5.1) g/dL 10/12/24 10/12/24 10/12/24 Range/Units 05:08 10:27 12:25 RBC 4.13 L (4.2-5.4) M/mm3 Hgb 11.6 L (12.0-15.0) g/dL Hct 34.5 L (37.0-47.0) % RDW 14.7 H (11.5-14.5) % APTT 93.8 H (22.3-36.8) Seconds Sodium 124 L 123 L (137-145) mmol/L Chloride 90 L 88 L (98-107) mmol/L BUN 37 H 37 H (7-17) mg/dL Creatinine 5.90 H 6.11 H (0.7-1.0) mg/dL Estimated GFR 7 L 7 L (59 - ) Glucose 119 H 166 H (65-110) mg/dL POC Capillary Glucose 163 H (65-105) mg/dl Calcium 6.7 L 7.1 L (8.4-10.2) mg/dL Total Bilirubin 1.8 H (0.2-1.3) mg/dL AST 491 H (14-36) U/L ALT 957 H (6-35) U/L Alkaline Phosphatase 444 H (38-126) U/L Total Protein 5.4 L (6.3-8.2) g/dL Albumin 2.9 L (3.5-5.1) g/dL Diabetes panel 10/12/24 10/12/24 Range/Units 05:08 10:27 Sodium 124 L 123 L (137-145) mmol/L Potassium 4.1 4.3 (3.4-5.0) mmol/L Chloride 90 L 88 L (98-107) mmol/L Carbon Dioxide 24 24 (22-30) mmol/L BUN 37 H 37 H (7-17) mg/dL Creatinine 5.90 H 6.11 H (0.7-1.0) mg/dL Glucose 119 H 166 H (65-110) mg/dL Calcium 6.7 L 7.1 L (8.4-10.2) mg/dL AST 491 H (14-36) U/L ALT 957 H (6-35) U/L Alkaline Phosphatase 444 H (38-126) U/L Total Protein 5.4 L (6.3-8.2) g/dL Albumin 2.9 L (3.5-5.1) g/dL Calcium panel 10/12/24 10/12/24 Range/Units 05:08 10:27 Calcium 6.7 L 7.1 L (8.4-10.2) mg/dL Albumin 2.9 L (3.5-5.1) g/dL Pituitary panel 10/12/24 10/12/24 Range/Units 05:08 10:27 Sodium 124 L 123 L (137-145) mmol/L Potassium 4.1 4.3 (3.4-5.0) mmol/L Chloride 90 L 88 L (98-107) mmol/L Carbon Dioxide 24 24 (22-30) mmol/L BUN 37 H 37 H (7-17) mg/dL Creatinine 5.90 H 6.11 H (0.7-1.0) mg/dL Glucose 119 H 166 H (65-110) mg/dL Calcium 6.7 L 7.1 L (8.4-10.2) mg/dL Adrenal panel 10/12/24 10/12/24 Range/Units 05:08 10:27 Sodium 124 L 123 L (137-145) mmol/L Potassium 4.1 4.3 (3.4-5.0) mmol/L Chloride 90 L 88 L (98-107) mmol/L Carbon Dioxide 24 24 (22-30) mmol/L BUN 37 H 37 H (7-17) mg/dL Creatinine 5.90 H 6.11 H (0.7-1.0) mg/dL Glucose 119 H 166 H (65-110) mg/dL Calcium 6.7 L 7.1 L (8.4-10.2) mg/dL Total Bilirubin 1.8 H (0.2-1.3) mg/dL AST 491 H (14-36) U/L ALT 957 H (6-35) U/L Alkaline Phosphatase 444 H (38-126) U/L Total Protein 5.4 L (6.3-8.2) g/dL Albumin 2.9 L (3.5-5.1) g/dL All other labs normal. Imaging Additional studies: ITS Impressions Abdomen/Pelvis CT 10/09/24 16:08 IMPRESSION: Trace pericardial effusion. Scattered calcified and noncalcified sub-6 mm pulmonary nodules, likely representing granulomas. Mild inflammatory change surrounding the pancreatic head and uncinate process, correlate for clinical findings of pancreatitis. Mild inflammatory stranding/edema in the proximal bile ducts, presumably related to the pancreatic process, noting that ascending cholangitis could appear similarly. Mild dilation of the third and fourth portions of the duodenum, presumably ileus related to the pancreatic process. Abdomen X-Ray 10/10/24 06:55 Impression: No acute abnormality is seen. Irregular markedly hyperdense opacity in the pelvis. Correlate for surgical/procedural history or traumatic history/foreign body. Renal Ultrasound 10/10/24 11:35 Impression: Unremarkable ultrasound of the kidneys and urinary bladder. Chest X-Ray 10/12/24 05:21 Impression: Moderate pulmonary edema pattern with small bilateral pleural effusions. Chest X-Ray 10/12/24 15:01 IMPRESSION: 1. Persistent interstitial and airspace opacities in both lungs consistent with mild pulmonary edema and small bilateral pleural effusions. 2. More dense opacities at the bilateral lower lung zones which could represent associated basilar atelectasis or pneumonia. 3. New right internal jugular central venous catheter with distal tip at the caudal superior vena cava.
--- NOTE | 2024-10-12 15:35 | W.PM.PROC2 ---
Procedure Note - Detailed Date of Procedure 10/12/24 Pre-op Diagnosis CHAD, congestive heart failure, atrial fibrillation with rapid ventricular response Post-op Diagnosis Same Procedure Performed Right IJ Denilson dialysis catheter placement using ultrasound guidance Surgeon Raul Lozano, DO Anesthesia Local (1% Lidocaine) Indications Acute kidney injury, congestive heart failure Findings SonoSite ultrasound was used to identify the right internal jugular vein. This was visualized as a compressible vessel just lateral to the pulsatile carotid artery. An 18 gauge introducer needle was advanced under ultrasound guidance directly into the lumen. Dark nonpulsatile blood was aspirated. The guidewire danced smoothly followed by the dilator and catheter. A 16 cm triple-lumen dialysis catheter was placed. Chest x-ray is pending to confirm placement. Description of Procedure Procedure, risks, benefits, and alternatives were discussed with the patient. Written consent was obtained and placed in chart prior to procedure. Patient was placed supine in hospital bed and placed in slight Trendelenburg position. Time-out was done to confirm patient and procedure. The right neck and chest area was prepped and draped in sterile fashion using chlorhexidine prep. SonoSite ultrasound was used to identify the right internal jugular vein. 1% lidocaine was infiltrated directly over this area. An 18 gauge introducer needle was advanced under ultrasound guidance directly into the right internal jugular vein. Dark nonpulsatile blood was aspirated. A 0.035 in guidewire was then advanced through the needle. The guidewire advanced smoothly. The needle was then withdrawn leaving the guidewire in place. A small moncho incision was made at the insertion site using an 11 blade scalpel. The blue dilators were then advanced over the guidewire to dilate the vessel. The 12 Indian triple lumen 16 cm dialysis catheter was then advanced over the guidewire until it was in place. The guidewire was removed. All 3 lumens were then aspirated and flushed with sterile saline. All 3 lumens function with ease. Caps were placed over the lumens. Glue was placed at the insertion site and the catheter was secured in place using 3 0 nylon simple interrupted sutures. A Tegaderm dressing was then applied over top. The patient was then sat up in bed and chest x-ray was ordered to confirm placement. Implants 12 Indian triple-lumen 16 cm dialysis catheter Estimated Blood Loss 5 Urine Output 0 Complications No immediate complications Condition Stable Disposition No change [facility] Billing Surgery - Charge Forward: Surgery Billing
--- NOTE | 2024-10-12 16:35 | P.PNIM_ITS ---
Progress Note: A&P Assessment and Plan (1) CHAD (acute kidney injury): Code(s): N17.9 - Acute kidney failure, unspecified Status: Acute Assessment and Plan: Worsening with fluid overload CHAD most likely due to dehydration and hypotension Cr 6.11 Nrphrology following dialysis cathter today and will start dialysis per Nephrology (2) Constipation: Code(s): K59.00 - Constipation, unspecified Status: Acute Assessment and Plan: Senna (3) Diabetes: Code(s): E11.9 - Type 2 diabetes mellitus without complications Status: Acute Assessment and Plan: Accu-Cheks q.6 SSI Hold home diabetes medications (4) Elevated liver enzymes: Code(s): R74.8 - Abnormal levels of other serum enzymes Status: Acute Assessment and Plan: GI was consulted notes reviewed: The patient's clinical presentation is not consistent with acute pancreatitis. Her primary issue appears to be a significant elevation of transaminases, which have notably decreased by almost half within 24 hours of fluid resuscitation. This is most compatible with ischemic hepatopathy, likely attributable to clinically silent, intermittent atrial fibrillation causing liver hypoperfusion. This also explains her extreme weakness, which persisted for over a week. Given that she doesn't have a clinical picture consistent with pancreatitis and her lipase levels have remained normal, the mild peripancreatic changes seen on imaging are considered nonspecific. Therefore, she can be started on oral feeds. We will also hold off on the MRCP that was initially ordered yesterday - Zosyn is d/c as it was started for consideration for cholangitis (5) Hypertension: Qualifiers: Hypertension type: unspecified Qualified Code(s): I10 - Essential (primary) hypertension Code(s): I10 - Essential (primary) hypertension Status: Chronic Assessment and Plan: home emds on hold as hypotensive (6) CHF (congestive heart failure): Code(s): I50.9 - Heart failure, unspecified Status: Acute Assessment and Plan: Last echo 2021 ejection fraction 55-60% cardiology on board (7) Atrial fibrillation with RVR: Code(s): I48.91 - Unspecified atrial fibrillation Status: Acute Assessment and Plan: new onset of afib Continue Cardizem 120mg and Eliquis 5mg bid po Plan Ischemic hepatitis AST/ALT 4607/3007, today 491/957 Bili 3.9 now 1.8 Hep B antibody negative GI following Reports intermitted nausea today QTc 511- so ideally avoid medication that could prolong it DVT prophylaxis on Eliquis Subjective Date/time seen: 10/12/24 16:36 Interval history: Comfortable at bedside still on Oxygen, and for dialysis catheter placement today Review of Systems Review of Systems: 12 systems were reviewed and are negativ e except for as per HPI. Exam Narrative: General: well appearing, appears stated age. HEENT: normocephalic, atraumatic. Mucous membranes moist. EOMI, PERRLA, bilateral sclera anicteric, no conjunctival injection. Neck supple without JVD, lymphadenopathy, or bruit. Respiratory: clear to ascultation bilaterally. No rales/rhonic/wheezes. Cardiovascular: normal S1-S2 upon ascultation. No murmurs, rubs, or clicks. PMI is nondisplaced, capillary refill less than 3 second. Abdomen: Soft, round, no pulsatile masses, nondistended and nontender. No rebound, no guarding. No CVA tenderness, no hepatosplenomegaly. Bowel sounds present Extremities: No cyanosis, clubbing, or edema present. Pulses are palpable 2/2. Active ROM to all four extremities. Neuro: Alert and orientated x 4. PERRLA. Cranial nerves 2-12 intact without focal deficit. Skin: Warm, dry, and intact, without rash, erythema, or lesion. Psych: pleasant, cooperative, normal speech, normal affect, no hallucinations, no dysarthia Const: General: comfortable Objective Data Vital Signs Vital Signs: Vital Signs - 24 hr 10/11/24 18:00 10/11/24 20:00 10/11/24 20:00 Temperature 97.8 F Pulse Rate 69 82 87 Respiratory Rate 16 Blood Pressure 137/72 Pulse Oximetry 93 Oxygen Delivery Room Air Oxygen Flow Rate 10/11/24 20:00 10/11/24 22:00 10/12/24 00:00 Temperature 97.9 F Pulse Rate 83 100 90 Respiratory Rate 16 Blood Pressure 130/69 Pulse Oximetry 92 Oxygen Delivery Oxygen Flow Rate 10/12/24 00:00 10/12/24 00:00 10/12/24 02:00 Temperature Pulse Rate 90 90 97 Respiratory Rate Blood Pressure Pulse Oximetry Oxygen Delivery Room Air Oxygen Flow Rate 10/12/24 03:34 10/12/24 03:58 10/12/24 04:00 Temperature 98.1 F Pulse Rate 96 99 92 Respiratory Rate 20 Blood Pressure 148/81 H Pulse Oximetry 96 98 Oxygen Delivery Nasal Cannula Oxygen Flow Rate 2 10/12/24 06:00 10/12/24 06:54 10/12/24 08:00 Temperature 97.8 F Pulse Rate 98 108 H Respiratory Rate 24 H Blood Pressure 151/98 H Pulse Oximetry 91 93 Oxygen Delivery Nasal Cannula Oxygen Flow Rate 3 10/12/24 08:00 10/12/24 08:00 10/12/24 09:23 Temperature Pulse Rate 106 H Respiratory Rate Blood Pressure Pulse Oximetry 93 98 Oxygen Delivery Nasal Cannula Nasal Cannula Oxygen Flow Rate 3 3 10/12/24 10:00 10/12/24 11:53 10/12/24 12:00 Temperature 97.9 F Pulse Rate 101 H 96 108 H Respiratory Rate 22 H Blood Pressure 141/73 H Pulse Oximetry 96 Oxygen Delivery Oxygen Flow Rate 10/12/24 12:00 10/12/24 14:00 10/12/24 15:20 Temperature 97.7 F Pulse Rate 106 H 95 Respiratory Rate 18 Blood Pressure 156/80 H Pulse Oximetry 96 95 Oxygen Delivery Nasal Cannula Oxygen Flow Rate 3 10/12/24 15:20 10/12/24 15:28 10/12/24 15:45 Temperature Pulse Rate 93 92 Respiratory Rate Blood Pressure 161/80 H 155/85 H Pulse Oximetry Oxygen Delivery Oxygen Flow Rate 3 10/12/24 16:00 10/12/24 16:15 10/12/24 16:30 Temperature Pulse Rate 94 96 88 Respiratory Rate Blood Pressure 138/72 159/70 H 145/82 H Pulse Oximetry Oxygen Delivery Oxygen Flow Rate Intake/Output Intake/Output: Intake & Output 10/09/24 10/10/24 10/11/24 10/12/24 23:59 23:59 23:59 23:59 Intake Total 2152.1 3757.5 4850.7 836.8 Output Total 0 160 0 Balance 2152.1 3757.5 4690.7 836.8 Meds/Results Medications: Active Medications Generic Name Dose Route Start Last Admin Trade Name Freq PRN Reason Stop Dose Admin Acetaminophen 500 mg 10/10/24 23:07 10/11/24 15:47 Acetaminophen 500 Mg Tablet PO 500 mg Q6H PRN Administration Mild Pain (1-3) or Fever Aspirin 81 mg 10/10/24 09:00 10/12/24 09:45 Aspirin 81 Mg Enteric Tablet PO 81 mg DAILY JIGNA Administration Buspirone HCl 5 mg 10/12/24 11:30 10/12/24 12:43 Buspirone Hcl 5 Mg Tablet PO 5 mg Q12HR JIGNA Administration Dextrose 12.5 gm 10/09/24 20:02 Dextrose 50% 25 Gm/50 Ml Syringe IV PUSH PRN PRN Hypoglycemia Protocol Diltiazem HCl 120 mg 10/11/24 12:00 10/12/24 09:45 Diltiazem Hcl Cd 120 Mg Cap.24hr PO 120 mg QAM JIGNA Administration Docusate Sodium 100 mg 10/10/24 09:00 10/12/24 16:11 Docusate Sodium 100 Mg Capsule PO Not Given BID JIGNA Escitalopram Oxalate 20 mg 10/10/24 09:00 10/12/24 09:45 Escitalopram Oxalate 10 Mg Tablet PO 20 mg DAILY JIGNA Administration Glucagon 1 mg 10/09/24 20:02 Glucagon For Inj 1 Mg Vial IM PRN PRN Hypoglycemia Protocol Glucose 15 gm 10/09/24 20:02 Glucose Oral Gel 15 Gm Of Glucse In 37.5 Gm Tube PO PRN PRN Hypoglycemia Protocol Heparin Sodium (Porcine) 5,500 units 10/10/24 02:45 Heparin Sodium 5,000 Units/Ml Vial IV PUSH PRN PRN aPTT less than 55 seconds Heparin Sodium (Porcine) 3,000 units 10/10/24 02:45 Heparin Sodium 5,000 Units/Ml Vial IV PUSH PRN PRN aPTT 55 - 70 seconds Hydromorphone HCl 0.5 mg 10/10/24 00:28 10/11/24 05:09 Hydromorphone Hcl Inj (*Crx) 2 Mg/Ml Vial IV PUSH 0.5 mg Q3H PRN Administration Pain Rated 7-10 Dextrose 1,000 mls @ 100 mls/hr 10/09/24 20:02 Dextrose 5% 1,000 Ml IVPB PRN PRN Hypoglycemia Protocol Heparin Sodium/Dextrose 25,000 units in 250 mls @ 0 mls/hr 10/10/24 02:45 10/12/24 10:15 Heparin Sodium/D5w 100 Units/Ml IV CONT 0 units/hr .Q0M JIGNA 0 mls/hr Titration Protocol 0 UNITS/HR Albumin Human 50 mls @ 999 mls/hr 10/12/24 12:35 Albutein IVPB 11/11/24 12:34 Q10M PRN HYPOTENSION Insulin Aspart 2 - 5 units 10/10/24 00:00 10/12/24 15:17 Insulin Aspart (*Bkc) 100 Units/Ml SUB-Q Not Given Q6HR JIGNA Protocol Levothyroxine Sodium 125 mcg 10/10/24 06:30 10/12/24 05:45 Levothyroxine Sodium 125 Mcg Tablet BY MOUTH 125 mcg Q48H JIGNA Administration Levothyroxine Sodium 150 mcg 10/11/24 06:30 10/11/24 07:35 Levothyroxine Sodium 150 Mcg Tablet PO 150 mcg Q48H JIGNA Administration Montelukast Sodium 10 mg 10/09/24 21:35 10/11/24 20:05 Montelukast Sodium 10 Mg Tablet BY MOUTH 10 mg QHS JIGNA Administration Radiology Results: ITS Impressions Abdomen/Pelvis CT 10/09/24 16:08 IMPRESSION: Trace pericardial effusion. Scattered calcified and noncalcified sub-6 mm pulmonary nodules, likely representing granulomas. Mild inflammatory change surrounding the pancreatic head and uncinate process, correlate for clinical findings of pancreatitis. Mild inflammatory stranding/edema in the proximal bile ducts, presumably related to the pancreatic process, noting that ascending cholangitis could appear similarly. Mild dilation of the third and fourth portions of the duodenum, presumably ileus related to the pancreatic process. Abdomen X-Ray 10/10/24 06:55 Impression: No acute abnormality is seen. Irregular markedly hyperdense opacity in the pelvis. Correlate for surgical/procedural history or traumatic history/foreign body. Renal Ultrasound 10/10/24 11:35 Impression: Unremarkable ultrasound of the kidneys and urinary bladder. Chest X-Ray 10/12/24 15:01 IMPRESSION: 1. Persistent interstitial and airspace opacities in both lungs consistent with mild pulmonary edema and small bilateral pleural effusions. 2. More dense opacities at the bilateral lower lung zones which could represent associated basilar atelectasis or pneumonia. 3. New right internal jugular central venous catheter with distal tip at the caudal superior vena cava. Labs Labs: Laboratory Results - last 24 hr 10/11/24 10/11/24 10/11/24 17:01 19:19 20:47 WBC RBC Hgb Hct MCV MCH MCHC RDW Plt Count MPV APTT 101.2 H Sodium Potassium Chloride Carbon Dioxide Anion Gap BUN Creatinine Estim Creat Clear Calc Estimated GFR Glucose POC Capillary Glucose 127 H 150 H Calcium Total Bilirubin AST ALT Alkaline Phosphatase Total Protein Albumin Hep Bs Antigen Hep Bs Antibody 10/12/24 10/12/24 10/12/24 00:34 01:21 02:25 WBC RBC Hgb Hct MCV MCH MCHC RDW Plt Count MPV APTT 101.8 H Sodium Potassium Chloride Carbon Dioxide Anion Gap BUN Creatinine Estim Creat Clear Calc Estimated GFR Glucose POC Capillary Glucose 128 H 138 H Calcium Total Bilirubin AST ALT Alkaline Phosphatase Total Protein Albumin Hep Bs Antigen Hep Bs Antibody 10/12/24 10/12/24 10/12/24 05:08 10:27 12:25 WBC 9.3 RBC 4.13 L Hgb 11.6 L Hct 34.5 L MCV 83.5 MCH 28.1 MCHC 33.6 RDW 14.7 H Plt Count 189 MPV 10.0 APTT 93.8 H Sodium 124 L 123 L Potassium 4.1 4.3 Chloride 90 L 88 L Carbon Dioxide 24 24 Anion Gap 10 11 BUN 37 H 37 H Creatinine 5.90 H 6.11 H Estim Creat Clear Calc 8 8 Estimated GFR 7 L 7 L Glucose 119 H 166 H POC Capillary Glucose 163 H Calcium 6.7 L 7.1 L Total Bilirubin 1.8 H AST 491 H ALT 957 H Alkaline Phosphatase 444 H Total Protein 5.4 L Albumin 2.9 L Hep Bs Antigen Negative Hep Bs Antibody Negative Quality VTE Prophylaxis VTE prophylaxis: mechanical ordered
--- NOTE | 2024-10-12 17:55 | P.PNGI_ITS ---
Progress Note: A&P Assessment and Plan (1) Shock liver: Code(s): K72.00 - Acute and subacute hepatic failure without coma Status: Acute Assessment and Plan: Despite worsening renal failure requiring dialysis, the patient's liver transaminases show significant improvement: AST levels have decreased from 4000 on October 09 to 2353 on October 10, 1047 on October 11, and 491 today; similarly, ALT levels have fallen from 3007 on October 09 to 1836 on October 10, 1140 on October 11, and 957 today. In addition, bilirubin levels have also declined, from 2.9 yesterday to 1.8 today. This further supports the diagnosis of ischemic hepatopathy secondary to multiple factors, probably cardiac arrhythmia. Will sign off for now, please feel free to consult us for any significant change in liver transaminase pattern or any other issue pertaining to our specialty. Subjective Date/time seen: 10/12/24 17:55 Objective Data Vital Signs Vital Signs: Vital Signs - 24 hr 10/11/24 18:00 10/11/24 20:00 10/11/24 20:00 Temperature 97.8 F Pulse Rate 69 82 87 Respiratory Rate 16 Blood Pressure 137/72 Pulse Oximetry 93 Oxygen Delivery Room Air Oxygen Flow Rate 10/11/24 20:00 10/11/24 22:00 10/12/24 00:00 Temperature 97.9 F Pulse Rate 83 100 90 Respiratory Rate 16 Blood Pressure 130/69 Pulse Oximetry 92 Oxygen Delivery Oxygen Flow Rate 10/12/24 00:00 10/12/24 00:00 10/12/24 02:00 Temperature Pulse Rate 90 90 97 Respiratory Rate Blood Pressure Pulse Oximetry Oxygen Delivery Room Air Oxygen Flow Rate 10/12/24 03:34 10/12/24 03:58 10/12/24 04:00 Temperature 98.1 F Pulse Rate 96 99 92 Respiratory Rate 20 Blood Pressure 148/81 H Pulse Oximetry 96 98 Oxygen Delivery Nasal Cannula Oxygen Flow Rate 2 10/12/24 06:00 10/12/24 06:54 10/12/24 08:00 Temperature 97.8 F Pulse Rate 98 108 H Respiratory Rate 24 H Blood Pressure 151/98 H Pulse Oximetry 91 93 Oxygen Delivery Nasal Cannula Oxygen Flow Rate 3 10/12/24 08:00 10/12/24 08:00 10/12/24 09:23 Temperature Pulse Rate 106 H Respiratory Rate Blood Pressure Pulse Oximetry 93 98 Oxygen Delivery Nasal Cannula Nasal Cannula Oxygen Flow Rate 3 3 10/12/24 10:00 10/12/24 11:53 10/12/24 12:00 Temperature 97.9 F Pulse Rate 101 H 96 108 H Respiratory Rate 22 H Blood Pressure 141/73 H Pulse Oximetry 96 Oxygen Delivery Oxygen Flow Rate 10/12/24 12:00 10/12/24 14:00 10/12/24 15:20 Temperature 97.7 F Pulse Rate 106 H 95 Respiratory Rate 18 Blood Pressure 156/80 H Pulse Oximetry 96 95 Oxygen Delivery Nasal Cannula Oxygen Flow Rate 3 10/12/24 15:20 10/12/24 15:28 10/12/24 15:45 Temperature Pulse Rate 93 92 Respiratory Rate Blood Pressure 161/80 H 155/85 H Pulse Oximetry Oxygen Delivery Oxygen Flow Rate 3 10/12/24 16:00 10/12/24 16:15 10/12/24 16:30 Temperature Pulse Rate 94 96 88 Respiratory Rate Blood Pressure 138/72 159/70 H 145/82 H Pulse Oximetry Oxygen Delivery Oxygen Flow Rate 10/12/24 16:45 10/12/24 17:00 10/12/24 17:15 Temperature Pulse Rate 86 86 88 Respiratory Rate Blood Pressure 148/80 H 140/72 140/74 Pulse Oximetry Oxygen Delivery Oxygen Flow Rate 10/12/24 17:30 10/12/24 17:45 Temperature Pulse Rate 88 89 Respiratory Rate Blood Pressure 139/75 126/58 L Pulse Oximetry Oxygen Delivery Oxygen Flow Rate Intake/Output Intake/Output: Intake & Output 10/09/24 10/10/24 10/11/24 10/12/24 23:59 23:59 23:59 23:59 Intake Total 2152.1 3757.5 4850.7 836.8 Output Total 0 160 0 Balance 2152.1 3757.5 4690.7 836.8 Meds/Results Medications: Active Medications Generic Name Dose Route Start Last Admin Trade Name Freq PRN Reason Stop Dose Admin Acetaminophen 500 mg 10/10/24 23:07 10/11/24 15:47 Acetaminophen 500 Mg Tablet PO 500 mg Q6H PRN Administration Mild Pain (1-3) or Fever Aspirin 81 mg 10/10/24 09:00 10/12/24 09:45 Aspirin 81 Mg Enteric Tablet PO 81 mg DAILY JIGNA Administration Buspirone HCl 5 mg 10/12/24 11:30 10/12/24 12:43 Buspirone Hcl 5 Mg Tablet PO 5 mg Q12HR JIGNA Administration Dextrose 12.5 gm 10/09/24 20:02 Dextrose 50% 25 Gm/50 Ml Syringe IV PUSH PRN PRN Hypoglycemia Protocol Diltiazem HCl 120 mg 10/11/24 12:00 10/12/24 09:45 Diltiazem Hcl Cd 120 Mg Cap.24hr PO 120 mg QAM JIGNA Administration Docusate Sodium 100 mg 10/10/24 09:00 10/12/24 16:11 Docusate Sodium 100 Mg Capsule PO Not Given BID JIGNA Escitalopram Oxalate 20 mg 10/10/24 09:00 10/12/24 09:45 Escitalopram Oxalate 10 Mg Tablet PO 20 mg DAILY JIGNA Administration Glucagon 1 mg 10/09/24 20:02 Glucagon For Inj 1 Mg Vial IM PRN PRN Hypoglycemia Protocol Glucose 15 gm 10/09/24 20:02 Glucose Oral Gel 15 Gm Of Glucse In 37.5 Gm Tube PO PRN PRN Hypoglycemia Protocol Heparin Sodium (Porcine) 5,500 units 10/10/24 02:45 Heparin Sodium 5,000 Units/Ml Vial IV PUSH PRN PRN aPTT less than 55 seconds Heparin Sodium (Porcine) 3,000 units 10/10/24 02:45 Heparin Sodium 5,000 Units/Ml Vial IV PUSH PRN PRN aPTT 55 - 70 seconds Hydromorphone HCl 0.5 mg 10/10/24 00:28 10/11/24 05:09 Hydromorphone Hcl Inj (*Crx) 2 Mg/Ml Vial IV PUSH 0.5 mg Q3H PRN Administration Pain Rated 7-10 Dextrose 1,000 mls @ 100 mls/hr 10/09/24 20:02 Dextrose 5% 1,000 Ml IVPB PRN PRN Hypoglycemia Protocol Heparin Sodium/Dextrose 25,000 units in 250 mls @ 0 mls/hr 10/10/24 02:45 10/12/24 10:15 Heparin Sodium/D5w 100 Units/Ml IV CONT 0 units/hr .Q0M JIGNA 0 mls/hr Titration Protocol 0 UNITS/HR Albumin Human 50 mls @ 999 mls/hr 10/12/24 12:35 Albutein IVPB 11/11/24 12:34 Q10M PRN HYPOTENSION Insulin Aspart 2 - 5 units 10/10/24 00:00 10/12/24 15:17 Insulin Aspart (*Bkc) 100 Units/Ml SUB-Q Not Given Q6HR [facility] Protocol Levothyroxine Sodium 125 mcg 10/10/24 06:30 10/12/24 05:45 Levothyroxine Sodium 125 Mcg Tablet BY MOUTH 125 mcg Q48H JIGNA Administration Levothyroxine Sodium 150 mcg 10/11/24 06:30 10/11/24 07:35 Levothyroxine Sodium 150 Mcg Tablet PO 150 mcg Q48H JIGNA Administration Montelukast Sodium 10 mg 10/09/24 21:35 10/11/24 20:05 Montelukast Sodium 10 Mg Tablet BY MOUTH 10 mg QHS JIGNA Administration Radiology Results: ITS Impressions Abdomen/Pelvis CT 10/09/24 16:08 IMPRESSION: Trace pericardial effusion. Scattered calcified and noncalcified sub-6 mm pulmonary nodules, likely representing granulomas. Mild inflammatory change surrounding the pancreatic head and uncinate process, correlate for clinical findings of pancreatitis. Mild inflammatory stranding/edema in the proximal bile ducts, presumably related to the pancreatic process, noting that ascending cholangitis could appear similarly. Mild dilation of the third and fourth portions of the duodenum, presumably ileus related to the pancreatic process. Abdomen X-Ray 10/10/24 06:55 Impression: No acute abnormality is seen. Irregular markedly hyperdense opacity in the pelvis. Correlate for surgical/procedural history or traumatic history/foreign body. Renal Ultrasound 10/10/24 11:35 Impression: Unremarkable ultrasound of the kidneys and urinary bladder. Chest X-Ray 10/12/24 15:01 IMPRESSION: 1. Persistent interstitial and airspace opacities in both lungs consistent with mild pulmonary edema and small bilateral pleural effusions. 2. More dense opacities at the bilateral lower lung zones which could represent associated basilar atelectasis or pneumonia. 3. New right internal jugular central venous catheter with distal tip at the caudal superior vena cava. Labs Labs: Laboratory Results - last 24 hr 10/11/24 10/11/24 10/12/24 19:19 20:47 00:34 WBC RBC Hgb Hct MCV MCH MCHC RDW Plt Count MPV APTT 101.2 H Sodium Potassium Chloride Carbon Dioxide Anion Gap BUN Creatinine Estim Creat Clear Calc Estimated GFR Glucose POC Capillary Glucose 150 H 128 H Calcium Total Bilirubin AST ALT Alkaline Phosphatase Total Protein Albumin Hep Bs Antigen Hep Bs Antibody 10/12/24 10/12/24 10/12/24 01:21 02:25 05:08 WBC 9.3 RBC 4.13 L Hgb 11.6 L Hct 34.5 L MCV 83.5 MCH 28.1 MCHC 33.6 RDW 14.7 H Plt Count 189 MPV 10.0 APTT 101.8 H 93.8 H Sodium 124 L Potassium 4.1 Chloride 90 L Carbon Dioxide 24 Anion Gap 10 BUN 37 H Creatinine 5.90 H Estim Creat Clear Calc 8 Estimated GFR 7 L Glucose 119 H POC Capillary Glucose 138 H Calcium 6.7 L Total Bilirubin AST ALT Alkaline Phosphatase Total Protein Albumin Hep Bs Antigen Negative Hep Bs Antibody Negative 10/12/24 10/12/24 10:27 12:25 WBC RBC Hgb Hct MCV MCH MCHC RDW Plt Count MPV APTT Sodium 123 L Potassium 4.3 Chloride 88 L Carbon Dioxide 24 Anion Gap 11 BUN 37 H Creatinine 6.11 H Estim Creat Clear Calc 8 Estimated GFR 7 L Glucose 166 H POC Capillary Glucose 163 H Calcium 7.1 L Total Bilirubin 1.8 H AST 491 H ALT 957 H Alkaline Phosphatase 444 H Total Protein 5.4 L Albumin 2.9 L Hep Bs Antigen Hep Bs Antibody
[2024-10-12 18:34] LABS: Glucose Point of Care 146 mg/dl (65-105)
[2024-10-12] MEDS: HEPARIN SOD/D5W 100 UNITS/ML 25,000 UNITS/250 ML BAG 8 UNITS IV CONT (18:34)
[2024-10-12] MEDS: ACETAMINOPHEN 500 MG TABLET PO (20:22)
[2024-10-12] MEDS: MONTELUKAST SODIUM 10 MG TABLET BY MOUTH (20:23)
--- NOTE | 2024-10-12 20:39 | ECG_ITS ---
Test Date: 2024-10-12 20:52:16 Measurements Intervals [place] Rate: 95 P: 106 OK: 216 QRS: 65 QRSD: 148 T: 88 QT: 420 QTc: 528 Interpretive Statements SINUS RHYTHM WITH FIRST DEGREE AV BLOCK LEFT BUNDLE BRANCH BLOCK BASELINE WANDER- I, II, III, AVL, AVF, V4 ABNORMAL ECG Compared to ECG 10/11/2024 19:49:14 NO SIGNIFICANT CHANGE Electronically Signed On 10-13-2024 06:08:42 CDT by Alvin Morrow D.O.
[2024-10-12] MEDS: METOCLOPRAMIDE HCL INJ 10 MG/2 ML VIAL 5 MG IV PUSH (21:02)
--- NOTE | 2024-10-12 22:42 | PM.EVENT ---
Event Note Event Note Event Note: 10/12/2024 at 22:40 Nursing staff called because the patient was having wheezing. She did not have any increase in oxygen requirement compared to last night. I went to evaluate the patient and although she appears ill she appears comfortable from a respiratory standpoint she reports that her abdomen feels minimally better from yesterday. She has end-expiratory wheezing anteriorly more so than posterior decreased breath sounds at the bases. She states she uses p.r.n. nebulizers at home. Os scheduled nebulizers have been ordered. On exam patient was also noted to have mottling around her feet and ankles which was apparent yesterday at the time of my evaluation but she has some increased mottling up to her knees. She states that she has always mottled in her feet and ankles. Patient's case was discussed with the patient her was also at the bedside. In both charge nurse and the patient's oriented nurses well as supervising nurse were all at bedside.
[2024-10-12] MEDS: IPRATROPIUM 0.5 MG/ALBUTEROL SULFATE 2.5 MG AMPUL.NEB 3 ML INHALATION (23:00)
[2024-10-13] VITALS (37 sets, daily range): BP systolic 114–173; BP diastolic 54–91; PULSE 81–141; RESP 16–22; TEMP 36–37; O2SAT 93–100
[2024-10-13 00:10] LABS: Glucose Point of Care 134 mg/dl (65-105)
[2024-10-13] MEDS: IPRATROPIUM 0.5 MG/ALBUTEROL SULFATE 2.5 MG AMPUL.NEB 3 ML INHALATION ×3 (01:33→20:44)
[2024-10-13 01:52] LABS: Partial Thromboplastin Time 71.1 Seconds (22.3-36.8)
[2024-10-13] MEDS: LORazepam INJ (*CRX) 2 MG/ML VIAL 0.5 MG IV PUSH (03:02)
[2024-10-13 08:17] LABS: Hemoglobin 11.8 g/dL (12.0-15.0); Mean Corpuscular HGB Conc 32.8 g/dl (32-36); Mean Corpuscular Hemoglobin 27.6 pg (26-34); Mean Corpuscular Volume 84.3 fl (80-100); Platelet Count Result 188 k/mm3 (150-375); Red Blood Count 4.27 M/mm3 (4.2-5.4); Red Cell Distribution Width 15.1 % (11.5-14.5); White Blood Count 11.1 K/mm3 (4.5-10.0)
[2024-10-13 08:32] LABS: Partial Thromboplastin Time 73.7 Seconds (22.3-36.8)
[2024-10-13 08:34] LABS: Alanine Aminotransferase 695 U/L (6-35); Albumin Level 2.9 g/dL (3.5-5.1); Alkaline Phosphatase 480 U/L (38-126); Anion Gap 11 mmol/L (4-12); Aspartate Amino Transferase 260 U/L (14-36); Bilirubin,Total 1.5 mg/dL (0.2-1.3); Blood Urea Nitrogen 30 mg/dL (7-17); Calcium 7.6 mg/dL (8.4-10.2); Carbon Dioxide 24 mmol/L (22-30); Chloride 91 mmol/L (98-107); Estimated CRCL calculation 7 ml/min; Estimated Glomerular Filt Rate 7; Glucose 146 mg/dL (65-110); Magnesium 1.9 mg/dL (1.6-2.3); Phosphorus 4.9 mg/dL (2.5-4.5); Potassium 4.2 mmol/L (3.4-5.0); Sodium 126 mmol/L (137-145); Total Protein 5.5 g/dL (6.3-8.2)
[2024-10-13] MEDS: ESCITALOPRAM OXALATE 10 MG TABLET 20 MG PO (09:46)
[2024-10-13] MEDS: dilTIAZem HCL CD 120 MG CAP.24HR PO (09:46)
[2024-10-13] MEDS: ASPIRIN 81 MG ENTERIC TABLET PO (09:46)
[2024-10-13] MEDS: busPIRone HCL 5 MG TABLET PO ×2 (09:47→20:23)
--- NOTE | 2024-10-13 11:00 | P.PNNP_ITS ---
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 on [employer]/dialysis due to volume overload unresponsive to diuretic therapy * no critical electrolytes but issues with hyponatremia noted * fluid removal with HD as tolerated * follow respiratory status * follow trend of repeat labs and UOP (2) Acute hypoxic respiratory failure: Code(s): J96.01 - Acute respiratory failure with hypoxia Status: Chronic Assessment and Plan: * felt more related to renal failure than overt CHF * imaging with evidence of pulmonary edema * ongoing fluid removal with HD/DUF as tolerated * monitor respiratory status * wean supplemental oxygen as tolerated (3) CHF (congestive heart failure): Code(s): I50.9 - Heart failure, unspecified Status: Acute Assessment and Plan: * recent Echo noted: * left ventricle is normal in size and systolic function * left ventricular ejection fraction is visually estimated to be 60-65% * paradoxical septal wall motion abnormality suggestive of bundle-branch block * right ventricle is normal in size and systolic function * no significant valvular abnormalities. * suspect volume overload/pulmonary edema/pleural effusion secondary to renal failure than CHF * failed trial of diuretic therapy * ongoing fluid removal with HD (4) Atrial fibrillation with RVR: Code(s): I48.91 - Unspecified atrial fibrillation Status: Acute Assessment and Plan: * Cardiology recommendations noted * diltiazem for rate control * on anticoagulation (5) Anemia: Code(s): D64.9 - Anemia, unspecified Status: Acute Assessment and Plan: * related to CHAD and acute illness * no need for JAMISON as of yet * follow trend of H/H (6) Elevated liver enzymes: Code(s): R74.8 - Abnormal levels of other serum enzymes Status: Acute Assessment and Plan: * as noted on admission * slow improvement noted * thought to be related to altered hemodynamics/previous hypotension * GI following (7) Hypertension: Qualifiers: Hypertension type: unspecified Qualified Code(s): I10 - Essential (primary) hypertension Code(s): I10 - Essential (primary) hypertension Status: Chronic Assessment and Plan: * clinically better at this time * back on diltiazem (more so for rate control) * follow trend of hemodynamics (8) Diabetes: Code(s): E11.9 - Type 2 diabetes mellitus without complications Status: Acute Assessment and Plan: * follow accu-checks * glycemic control per hospitalist Will continue to follow. L Subjective Date/time seen: 10/13/24 11:00 Interval history: Follow-up for acute kidney injury/acute renal failure. S/P temporary HD catheter placement with dialysis yesterday and tolerating dialysis treatment at the time of my visit (seen on HD at 10:45AM); still with complaints of some shortness of breath and intermittent nausea complicated by anxiety as well; no other acute issues/events overnight or earlier this AM. Exam 2 Narrative: General: elderly and mildly ill-appearing female in NAD Heart: normal S1 and S2; no rub Lungs: coarse with few bibasilar crackles; decreased at bases Abdomen: soft, nontender, nondistended, positive bowel sounds Extremities: no cyanosis or clubbing; no edema Skin: no rash Objective Data Vital Signs Vital Signs: Vital Signs Temp Pulse Resp BP Pulse Ox O2 Del Method O2 Flow Rate 10/13/24 10:59 137 H 143/71 H 10/13/24 10:45 140 H 158/86 H 10/13/24 10:30 137 H 149/77 H 10/13/24 10:15 133 H 167/86 H 10/13/24 10:00 139 H 10/13/24 10:00 133 H 161/81 H 10/13/24 09:45 141 H 137/91 H 10/13/24 09:30 138 H 153/81 H 10/13/24 09:15 114 H 167/81 H 10/13/24 09:00 121 H 151/88 H 10/13/24 08:45 106 H 147/84 H 10/13/24 08:30 110 H 173/91 H 10/13/24 08:15 89 120/85 10/13/24 08:03 98 F 101 H 20 138/68 100 10/13/24 08:00 110 H 10/13/24 08:00 100 Nasal Cannula 3 10/13/24 07:58 107 H 166/89 H 10/13/24 07:50 3 10/13/24 07:50 98 F 106 H 16 160/86 H 97 10/13/24 07:28 104 H 20 10/13/24 07:19 98 20 10/13/24 07:19 97 Nasal Cannula 4 10/13/24 06:00 88 10/13/24 04:00 97.5 F L 89 22 H 125/65 93 10/13/24 04:00 89 10/13/24 04:00 93 Nasal Cannula 3 10/13/24 02:00 91 10/13/24 01:48 100 10/13/24 01:33 101 H 20 10/13/24 00:00 84 10/13/24 00:00 98 Nasal Cannula 3 10/13/24 00:00 97.7 F 94 18 135/71 98 10/12/24 23:02 96 20 10/12/24 22:00 82 10/12/24 20:00 96 10/12/24 20:00 94 Nasal Cannula 3 10/12/24 19:52 97.6 F 94 20 135/70 100 10/12/24 19:46 80 20 91 Nasal Cannula 3 10/12/24 18:35 97.7 F 94 16 129/66 100 10/12/24 18:04 97.9 F 94 16 148/81 H 100 10/12/24 18:00 94 10/12/24 17:58 92 127/69 10/12/24 17:45 89 126/58 L 10/12/24 17:30 88 139/75 10/12/24 17:15 88 140/74 10/12/24 17:00 86 140/72 10/12/24 16:45 86 148/80 H 10/12/24 16:30 88 145/82 H 10/12/24 16:15 96 159/70 H 10/12/24 16:00 94 10/12/24 16:00 94 138/72 10/12/24 15:45 92 155/85 H 10/12/24 15:28 93 161/80 H 10/12/24 15:20 3 10/12/24 15:20 97.7 F 95 18 156/80 H 95 Intake/Output Intake/Output: Intake & Output 06/0810/11/24 10/12/24 10/13/24 23:59 23:59 23:59 23:59 Intake Total 3757.5 4850.7 836.8 352.2 Output Total 0 160 2500 3000 Balance 3757.5 4690.7 -1663.2 -2647.8 Meds/Results Medications: Active Medications Generic Name Dose Route Start Last Admin Trade Name Freq PRN Reason Stop Dose Admin Acetaminophen 500 mg 10/10/24 23:07 10/12/24 20:22 Acetaminophen 500 Mg Tablet PO 500 mg Q6H PRN Administration Mild Pain (1-3) or Fever Albuterol/Ipratropium 3 ml 10/13/24 02:00 10/13/24 07:19 Ipratropium 0.5 Mg/Albuterol Sulfate 2.5 Mg Ampul.Neb 3 Ml INHALATION 3 ml Q6HRT JIGNA Administration Aspirin 81 mg 10/10/24 09:00 10/13/24 09:46 Aspirin 81 Mg Enteric Tablet PO 81 mg DAILY JIGNA Administration Buspirone HCl 5 mg 10/12/24 11:30 10/13/24 09:47 Buspirone Hcl 5 Mg Tablet PO 5 mg Q12HR JIGNA Administration Dextrose 12.5 gm 10/09/24 20:02 Dextrose 50% 25 Gm/50 Ml Syringe IV PUSH PRN PRN Hypoglycemia Protocol Diltiazem HCl 120 mg 10/11/24 12:00 10/13/24 09:46 Diltiazem Hcl Cd 120 Mg Cap.24hr PO 120 mg QAM JIGNA Administration Escitalopram Oxalate 20 mg 10/10/24 09:00 10/13/24 09:46 Escitalopram Oxalate 10 Mg Tablet PO 20 mg DAILY JIGNA Administration Glucagon 1 mg 10/09/24 20:02 Glucagon For Inj 1 Mg Vial IM PRN PRN Hypoglycemia Protocol Glucose 15 gm 10/09/24 20:02 Glucose Oral Gel 15 Gm Of Glucse In 37.5 Gm Tube PO PRN PRN Hypoglycemia Protocol Heparin Sodium (Porcine) 5,500 units 10/10/24 02:45 Heparin Sodium 5,000 Units/Ml Vial IV PUSH PRN PRN aPTT less than 55 seconds Heparin Sodium (Porcine) 3,000 units 10/10/24 02:45 Heparin Sodium 5,000 Units/Ml Vial IV PUSH PRN PRN aPTT 55 - 70 seconds Hydromorphone HCl 0.5 mg 10/10/24 00:28 10/11/24 05:09 Hydromorphone Hcl Inj (*Crx) 2 Mg/Ml Vial IV PUSH 0.5 mg Q3H PRN Administration Pain Rated 7-10 Dextrose 1,000 mls @ 100 mls/hr 10/09/24 20:02 Dextrose 5% 1,000 Ml IVPB PRN PRN Hypoglycemia Protocol Heparin Sodium/Dextrose 25,000 units in 250 mls @ 8 mls/hr 10/10/24 02:45 10/13/24 08:36 Heparin Sodium/D5w 100 Units/Ml IV CONT 800 units/hr .Q24H JIGNA 8 mls/hr Titration Protocol 800 UNITS/HR Albumin Human 50 mls @ 999 mls/hr 10/12/24 12:35 Albutein IVPB 11/11/24 12:34 Q10M PRN HYPOTENSION Insulin Aspart 2 - 5 units 10/10/24 00:00 10/13/24 11:55 Insulin Aspart (*Bkc) 100 Units/Ml SUB-Q Not Given Q6HR JIGNA Protocol Levothyroxine Sodium 125 mcg 10/10/24 06:30 10/12/24 05:45 Levothyroxine Sodium 125 Mcg Tablet BY MOUTH 125 mcg Q48H JIGNA Administration Levothyroxine Sodium 150 mcg 10/11/24 06:30 10/13/24 06:16 Levothyroxine Sodium 150 Mcg Tablet PO Not Given Q48H JIGNA Montelukast Sodium 10 mg 10/09/24 21:35 10/12/24 20:23 Montelukast Sodium 10 Mg Tablet BY MOUTH 10 mg QHS JIGNA Administration Radiology Results: ITS Impressions Abdomen/Pelvis CT 10/09/24 16:08 IMPRESSION: Trace pericardial effusion. Scattered calcified and noncalcified sub-6 mm pulmonary nodules, likely representing granulomas. Mild inflammatory change surrounding the pancreatic head and uncinate process, correlate for clinical findings of pancreatitis. Mild inflammatory stranding/edema in the proximal bile ducts, presumably related to the pancreatic process, noting that ascending cholangitis could appear similarly. Mild dilation of the third and fourth portions of the duodenum, presumably ileus related to the pancreatic process. Abdomen X-Ray 10/10/24 06:55 Impression: No acute abnormality is seen. Irregular markedly hyperdense opacity in the pelvis. Correlate for surgical/procedural history or traumatic history/foreign body. Renal Ultrasound 10/10/24 11:35 Impression: Unremarkable ultrasound of the kidneys and urinary bladder. Chest X-Ray 10/12/24 15:01 IMPRESSION: 1. Persistent interstitial and airspace opacities in both lungs consistent with mild pulmonary edema and small bilateral pleural effusions. 2. More dense opacities at the bilateral lower lung zones which could represent associated basilar atelectasis or pneumonia. 3. New right internal jugular central venous catheter with distal tip at the caudal superior vena cava. Labs Labs: Laboratory Tests 10/13/24 08:07 10/13/24 08:07 Calcium 7.6 L Phosphorus 4.9 H Magnesium 1.9 Total Bilirubin 1.5 H AST 260 H ALT 695 H Alkaline Phosphatase 480 H Total Protein 5.5 L Albumin 2.9 L
[2024-10-13 11:42] LABS: Glucose Point of Care 104 mg/dl (65-105)
--- NOTE | 2024-10-13 16:14 | P.PNIM_ITS ---
Progress Note: A&P Assessment and Plan (1) CHAD (acute kidney injury): Code(s): N17.9 - Acute kidney failure, unspecified Status: Acute Assessment and Plan: Worsening with fluid overload no dialysis Nephrology (2) Constipation: Code(s): K59.00 - Constipation, unspecified Status: Acute Assessment and Plan: Senna (3) Diabetes: Code(s): E11.9 - Type 2 diabetes mellitus without complications Status: Acute Assessment and Plan: Accu-Cheks q.6 SSI Hold home diabetes medications (4) Elevated liver enzymes: Code(s): R74.8 - Abnormal levels of other serum enzymes Status: Acute Assessment and Plan: GI was consulted notes reviewed: The patient's clinical presentation is not consistent with acute pancreatitis. Her primary issue appears to be a significant elevation of transaminases, which have notably decreased by almost half within 24 hours of fluid resuscitation. This is most compatible with ischemic hepatopathy, likely attributable to clinically silent, intermittent atrial fibrillation causing liver hypoperfusion. This also explains her extreme weakness, which persisted for over a week. Given that she doesn't have a clinical picture consistent with pancreatitis and her lipase levels have remained normal, the mild peripancreatic changes seen on imaging are considered nonspecific. Therefore, she can be started on oral feeds. We will also hold off on the MRCP that was initially ordered yesterday - Zosyn is d/c as it was started for consideration for cholangitis (5) Hypertension: Qualifiers: Hypertension type: unspecified Qualified Code(s): I10 - Essential (primary) hypertension Code(s): I10 - Essential (primary) hypertension Status: Chronic Assessment and Plan: home emds on hold as hypotensive (6) CHF (congestive heart failure): Code(s): I50.9 - Heart failure, unspecified Status: Acute Assessment and Plan: Last echo 2021 ejection fraction 55-60% cardiology on board (7) Atrial fibrillation with RVR: Code(s): I48.91 - Unspecified atrial fibrillation Status: Acute Assessment and Plan: new onset of afib Continue Cardizem 120mg and Eliquis 5mg bid po Plan Ischemic hepatitis AST/ALT 4607/3007, today 260/695 Bili 3.9 now 1.8 Hep B antibody negative GI following Bronchospasm On duoneb treatment Reports intermitted nausea today QTc 511- so ideally avoid medication that could prolong it DVT prophylaxis on Eliquis Subjective Date/time seen: 10/13/24 16:14 Interval history: comfortable at bedside. had dialysis today Review of Systems Review of Systems: 12 systems were reviewed and are negativ e except for as per HPI. Exam Narrative: General: well appearing, appears stated age. HEENT: normocephalic, atraumatic. Mucous membranes moist. EOMI, PERRLA, bilateral sclera anicteric, no conjunctival injection. Neck supple without JVD, lymphadenopathy, or bruit. Respiratory: clear to ascultation bilaterally. No rales/rhonic/wheezes. Cardiovascular: normal S1-S2 upon ascultation. No murmurs, rubs, or clicks. PMI is nondisplaced, capillary refill less than 3 second. Abdomen: Soft, round, no pulsatile masses, nondistended and nontender. No rebound, no guarding. No CVA tenderness, no hepatosplenomegaly. Bowel sounds present Extremities: No cyanosis, clubbing, or edema present. Pulses are palpable 2/2. Active ROM to all four extremities. Neuro: Alert and orientated x 4. PERRLA. Cranial nerves 2-12 intact without focal deficit. Skin: Warm, dry, and intact, without rash, erythema, or lesion. Psych: pleasant, cooperative, normal speech, normal affect, no hallucinations, no dysarthia Const: General: comfortable Objective Data Vital Signs Vital Signs: Vital Signs - 24 hr 10/12/24 16:15 10/12/24 16:30 10/12/24 16:45 Temperature Pulse Rate 96 88 86 Respiratory Rate Blood Pressure 159/70 H 145/82 H 148/80 H Pulse Oximetry Oxygen Delivery Oxygen Flow Rate Fraction of Inspired Oxygen 10/12/24 17:00 10/12/24 17:15 10/12/24 17:30 Temperature Pulse Rate 86 88 88 Respiratory Rate Blood Pressure 140/72 140/74 139/75 Pulse Oximetry Oxygen Delivery Oxygen Flow Rate Fraction of Inspired Oxygen 10/12/24 17:45 10/12/24 17:58 10/12/24 18:00 Temperature Pulse Rate 89 92 94 Respiratory Rate Blood Pressure 126/58 L 127/69 Pulse Oximetry Oxygen Delivery Oxygen Flow Rate Fraction of Inspired Oxygen 10/12/24 18:04 10/12/24 18:35 10/12/24 19:46 Temperature 97.9 F 97.7 F Pulse Rate 94 94 80 Respiratory Rate 16 16 20 Blood Pressure 148/81 H 129/66 Pulse Oximetry 100 100 91 Oxygen Delivery Nasal Cannula Oxygen Flow Rate 3 Fraction of Inspired Oxygen 32 10/12/24 19:52 10/12/24 20:00 10/12/24 20:00 Temperature 97.6 F Pulse Rate 94 96 Respiratory Rate 20 Blood Pressure 135/70 Pulse Oximetry 100 94 Oxygen Delivery Nasal Cannula Oxygen Flow Rate 3 Fraction of Inspired Oxygen 10/12/24 22:00 10/12/24 23:02 10/13/24 00:00 Temperature 97.7 F Pulse Rate 82 96 94 Respiratory Rate 20 18 Blood Pressure 135/71 Pulse Oximetry 98 Oxygen Delivery Oxygen Flow Rate Fraction of Inspired Oxygen 10/13/24 00:00 10/13/24 00:00 10/13/24 01:33 Temperature Pulse Rate 84 101 H Respiratory Rate 20 Blood Pressure Pulse Oximetry 98 Oxygen Delivery Nasal Cannula Oxygen Flow Rate 3 Fraction of Inspired Oxygen 10/13/24 01:48 10/13/24 02:00 10/13/24 04:00 Temperature Pulse Rate 100 91 Respiratory Rate Blood Pressure Pulse Oximetry 93 Oxygen Delivery Nasal Cannula Oxygen Flow Rate 3 Fraction of Inspired Oxygen 10/13/24 04:00 10/13/24 04:00 10/13/24 06:00 Temperature 97.5 F L Pulse Rate 89 89 88 Respiratory Rate 22 H Blood Pressure 125/65 Pulse Oximetry 93 Oxygen Delivery Oxygen Flow Rate Fraction of Inspired Oxygen 10/13/24 07:19 10/13/24 07:19 10/13/24 07:28 Temperature Pulse Rate 98 104 H Respiratory Rate 20 20 Blood Pressure Pulse Oximetry 97 Oxygen Delivery Nasal Cannula Oxygen Flow Rate 4 Fraction of Inspired Oxygen 10/13/24 07:50 10/13/24 07:50 10/13/24 07:58 Temperature 98 F Pulse Rate 106 H 107 H Respiratory Rate 16 Blood Pressure 160/86 H 166/89 H Pulse Oximetry 97 Oxygen Delivery Oxygen Flow Rate 3 Fraction of Inspired Oxygen 10/13/24 08:00 10/13/24 08:00 10/13/24 08:03 Temperature 98 F Pulse Rate 110 H 101 H Respiratory Rate 20 Blood Pressure 138/68 Pulse Oximetry 100 100 Oxygen Delivery Nasal Cannula Oxygen Flow Rate 3 Fraction of Inspired Oxygen 10/13/24 08:15 10/13/24 08:30 10/13/24 08:45 Temperature Pulse Rate 89 110 H 106 H Respiratory Rate Blood Pressure 120/85 173/91 H 147/84 H Pulse Oximetry Oxygen Delivery Oxygen Flow Rate Fraction of Inspired Oxygen 10/13/24 09:00 10/13/24 09:15 10/13/24 09:30 Temperature Pulse Rate 121 H 114 H 138 H Respiratory Rate Blood Pressure 151/88 H 167/81 H 153/81 H Pulse Oximetry Oxygen Delivery Oxygen Flow Rate Fraction of Inspired Oxygen 10/13/24 09:45 10/13/24 10:00 10/13/24 10:00 Temperature Pulse Rate 141 H 133 H 139 H Respiratory Rate Blood Pressure 137/91 H 161/81 H Pulse Oximetry Oxygen Delivery Oxygen Flow Rate Fraction of Inspired Oxygen 10/13/24 10:15 10/13/24 10:30 10/13/24 10:45 Temperature Pulse Rate 133 H 137 H 140 H Respiratory Rate Blood Pressure 167/86 H 149/77 H 158/86 H Pulse Oximetry Oxygen Delivery Oxygen Flow Rate Fraction of Inspired Oxygen 10/13/24 10:59 10/13/24 11:10 10/13/24 11:54 Temperature 98.6 F 97.5 F L Pulse Rate 137 H 115 H 112 H Respiratory Rate 22 H 20 Blood Pressure 143/71 H 159/71 H 140/75 Pulse Oximetry 98 99 Oxygen Delivery Oxygen Flow Rate Fraction of Inspired Oxygen 10/13/24 12:00 10/13/24 12:00 10/13/24 14:00 Temperature Pulse Rate 111 H 97 Respiratory Rate Blood Pressure Pulse Oximetry 99 Oxygen Delivery Nasal Cannula Oxygen Flow Rate 3 Fraction of Inspired Oxygen 10/13/24 14:26 10/13/24 15:04 10/13/24 15:58 Temperature 98.0 F Pulse Rate 96 Respiratory Rate 20 Blood Pressure 136/58 L Pulse Oximetry 100 Oxygen Delivery Room Air Room Air Oxygen Flow Rate Fraction of Inspired Oxygen Intake/Output Intake/Output: Intake & Output 10/10/24 10/11/24 10/12/24 10/13/24 23:59 23:59 23:59 23:59 Intake Total 3757.5 4850.7 836.8 352.2 Output Total 0 160 2500 3000 Balance 3757.5 4690.7 -1663.2 -2647.8 Meds/Results Medications: Active Medications Generic Name Dose Route Start Last Admin Trade Name Prestonq PRN Reason Stop Dose Admin Acetaminophen 500 mg 10/10/24 23:07 10/12/24 20:22 Acetaminophen 500 Mg Tablet PO 500 mg Q6H PRN Administration Mild Pain (1-3) or Fever Albuterol/Ipratropium 3 ml 10/13/24 02:00 10/13/24 15:55 Ipratropium 0.5 Mg/Albuterol Sulfate 2.5 Mg Ampul.Neb 3 Ml INHALATION Not Given Q6HRT [facility] Aspirin 81 mg 10/10/24 09:00 10/13/24 09:46 Aspirin 81 Mg Enteric Tablet PO 81 mg DAILY JIGNA Administration Buspirone HCl 5 mg 10/12/24 11:30 10/13/24 09:47 Buspirone Hcl 5 Mg Tablet PO 5 mg Q12HR JIGNA Administration Dextrose 12.5 gm 10/09/24 20:02 Dextrose 50% 25 Gm/50 Ml Syringe IV PUSH PRN PRN Hypoglycemia Protocol Diltiazem HCl 120 mg 10/11/24 12:00 10/13/24 09:46 Diltiazem Hcl Cd 120 Mg Cap.24hr PO 120 mg QAM JIGNA Administration Escitalopram Oxalate 20 mg 10/10/24 09:00 10/13/24 09:46 Escitalopram Oxalate 10 Mg Tablet PO 20 mg DAILY JIGNA Administration Glucagon 1 mg 10/09/24 20:02 Glucagon For Inj 1 Mg Vial IM PRN PRN Hypoglycemia Protocol Glucose 15 gm 10/09/24 20:02 Glucose Oral Gel 15 Gm Of Glucse In 37.5 Gm Tube PO PRN PRN Hypoglycemia Protocol Heparin Sodium (Porcine) 5,500 units 10/10/24 02:45 Heparin Sodium 5,000 Units/Ml Vial IV PUSH PRN PRN aPTT less than 55 seconds Heparin Sodium (Porcine) 3,000 units 10/10/24 02:45 Heparin Sodium 5,000 Units/Ml Vial IV PUSH PRN PRN aPTT 55 - 70 seconds Hydromorphone HCl 0.5 mg 10/10/24 00:28 10/11/24 05:09 Hydromorphone Hcl Inj (*Crx) 2 Mg/Ml Vial IV PUSH 0.5 mg Q3H PRN Administration Pain Rated 7-10 Dextrose 1,000 mls @ 100 mls/hr 10/09/24 20:02 Dextrose 5% 1,000 Ml IVPB PRN PRN Hypoglycemia Protocol Heparin Sodium/Dextrose 25,000 units in 250 mls @ 8 mls/hr 10/10/24 02:45 10/13/24 08:36 Heparin Sodium/D5w 100 Units/Ml IV CONT 800 units/hr .Q24H JIGNA 8 mls/hr Titration Protocol 800 UNITS/HR Albumin Human 50 mls @ 999 mls/hr 10/12/24 12:35 Albutein IVPB 11/11/24 12:34 Q10M PRN HYPOTENSION Insulin Aspart 2 - 5 units 10/10/24 00:00 10/13/24 11:55 Insulin Aspart (*Bkc) 100 Units/Ml SUB-Q Not Given Q6HR JIGNA Protocol Levothyroxine Sodium 125 mcg 10/10/24 06:30 10/12/24 05:45 Levothyroxine Sodium 125 Mcg Tablet BY MOUTH 125 mcg Q48H JIGNA Administration Levothyroxine Sodium 150 mcg 10/11/24 06:30 10/13/24 06:16 Levothyroxine Sodium 150 Mcg Tablet PO Not Given Q48H JIGNA Montelukast Sodium 10 mg 10/09/24 21:35 10/12/24 20:23 Montelukast Sodium 10 Mg Tablet BY MOUTH 10 mg QHS JIGNA Administration Radiology Results: ITS Impressions Abdomen/Pelvis CT 10/09/24 16:08 IMPRESSION: Trace pericardial effusion. Scattered calcified and noncalcified sub-6 mm pulmonary nodules, likely representing granulomas. Mild inflammatory change surrounding the pancreatic head and uncinate process, correlate for clinical findings of pancreatitis. Mild inflammatory stranding/edema in the proximal bile ducts, presumably related to the pancreatic process, noting that ascending cholangitis could appear similarly. Mild dilation of the third and fourth portions of the duodenum, presumably ileus related to the pancreatic process. Abdomen X-Ray 10/10/24 06:55 Impression: No acute abnormality is seen. Irregular markedly hyperdense opacity in the pelvis. Correlate for surgical/procedural history or traumatic history/foreign body. Renal Ultrasound 10/10/24 11:35 Impression: Unremarkable ultrasound of the kidneys and urinary bladder. Chest X-Ray 10/12/24 15:01 IMPRESSION: 1. Persistent interstitial and airspace opacities in both lungs consistent with mild pulmonary edema and small bilateral pleural effusions. 2. More dense opacities at the bilateral lower lung zones which could represent associated basilar atelectasis or pneumonia. 3. New right internal jugular central venous catheter with distal tip at the caudal superior vena cava. Labs Labs: Laboratory Results - last 24 hr 10/12/24 10/12/24 10/13/24 18:32 22:50 00:06 WBC RBC Hgb Hct MCV MCH MCHC RDW Plt Count MPV APTT Puncture Site Cancelled ABG pH Cancelled ABG pCO2 Cancelled ABG pO2 Cancelled ABG PO2/FiO2 Ratio Cancelled ABG HCO3 Cancelled ABG O2 Saturation Cancelled ABG O2 Content Cancelled ABG Base Excess Cancelled A-a Gradient Cancelled Oxyhemoglobin Cancelled Total Hemoglobin Cancelled O2 Delivery Device Cancelled O2 Liters/Min Cancelled FiO2 Cancelled Sodium Potassium Chloride Carbon Dioxide Anion Gap BUN Creatinine Estim Creat Clear Calc Estimated GFR Glucose POC Capillary Glucose 146 H 134 H Calcium Phosphorus Magnesium Total Bilirubin AST ALT Alkaline Phosphatase Total Protein Albumin 10/13/24 10/13/24 10/13/24 01:09 08:07 11:33 WBC 11.1 H RBC 4.27 Hgb 11.8 L Hct 36.0 L MCV 84.3 MCH 27.6 MCHC 32.8 RDW 15.1 H Plt Count 188 MPV 10.0 APTT 71.1 H 73.7 H Puncture Site ABG pH ABG pCO2 ABG pO2 ABG PO2/FiO2 Ratio ABG HCO3 ABG O2 Saturation ABG O2 Content ABG Base Excess A-a Gradient Oxyhemoglobin Total Hemoglobin O2 Delivery Device O2 Liters/Min FiO2 Sodium 126 L Potassium 4.2 Chloride 91 L Carbon Dioxide 24 Anion Gap 11 BUN 30 H Creatinine 5.69 H Estim Creat Clear Calc 7 Estimated GFR 7 L Glucose 146 H POC Capillary Glucose 104 Calcium 7.6 L Phosphorus 4.9 H Magnesium 1.9 Total Bilirubin 1.5 H AST 260 H ALT 695 H Alkaline Phosphatase 480 H Total Protein 5.5 L Albumin 2.9 L Quality VTE Prophylaxis VTE prophylaxis: mechanical ordered
[2024-10-13 19:02] LABS: Glucose Point of Care 107 mg/dl (65-105)
[2024-10-13] MEDS: MONTELUKAST SODIUM 10 MG TABLET BY MOUTH (20:23)
[2024-10-13] MEDS: ACETAMINOPHEN 500 MG TABLET PO (20:23)
[2024-10-14] VITALS (38 sets, daily range): BP systolic 120–167; BP diastolic 53–90; PULSE 82–110; RESP 16–24; TEMP 36–37; O2SAT 92–99
[2024-10-14 00:18] LABS: Glucose Point of Care 111 mg/dl (65-105)
[2024-10-14] MEDS: HEPARIN SOD/D5W 100 UNITS/ML 25,000 UNITS/250 ML BAG 8 UNITS IV CONT (01:02)
--- NOTE | 2024-10-14 02:04 | ECG_ITS ---
Test Date: 2024-10-14 02:10:12 Measurements Intervals [place] Rate: 96 P: 85 AR: 178 QRS: 72 QRSD: 147 T: 90 QT: 407 QTc: 514 Interpretive Statements SINUS RHYTHM WITH FREQUENT SUPRAVENTRICULAR PREMATURE COMPLEXES LEFT BUNDLE BRANCH BLOCK ABNORMAL ECG Compared to ECG 10/12/2024 20:52:16 NO SIGNIFICANT CHANGE Electronically Signed On 10-14-2024 11:21:07 CDT by Alvin Morrow D.O.
[2024-10-14] MEDS: IPRATROPIUM 0.5 MG/ALBUTEROL SULFATE 2.5 MG AMPUL.NEB 3 ML INHALATION ×3 (02:05→19:55)
[2024-10-14] MEDS: ONDANSETRON INJ 4 MG/2 ML VIAL IV PUSH (02:15)
[2024-10-14 04:43] LABS: Basophils Absolute Auto 0.1 K/mm3 (0.0-0.1); Basophils Percent Auto 0.6 % (0.2-1.2); Eosinophils Absolute Auto 0.1 K/mm3 (0-0.3); Eosinophils Percent Auto 1.3 % (0-4.4); Hematocrit 31.7 % (37.0-47.0); Hemoglobin 10.5 g/dL (12.0-15.0); Immature Granulocyte Absolute 0.07 K/mm3 (0.00-0.031); Immature Granulocyte Percent A 0.7 % (0-0.5); Lymphocytes Absolute Auto 1.44 K/mm3 (0.9-3.2); Lymphocytes Percent Auto 14.7 % (18.3-44.2); Mean Corpuscular HGB Conc 33.1 g/dl (32-36); Mean Corpuscular Hemoglobin 27.7 pg (26-34); Mean Corpuscular Volume 83.6 fl (80-100); Mean Platelet Volume 9.8 fl (7.4-10.4); Monocytes Absolute Auto 1.5 K/mm3 (0.1-0.6); Monocytes Percent Auto 15.5 % (2.6-8.5); Neutrophils Absolute Auto 6.6 K/mm3 (1.3-6.7); Neutrophils Percent Auto 67.2 % (45.5-73.1); Platelet Count Result 190 k/mm3 (150-375); Red Blood Count 3.79 M/mm3 (4.2-5.4); Red Cell Distribution Width 15.7 % (11.5-14.5); White Blood Count 9.8 K/mm3 (4.5-10.0)
[2024-10-14 05:12] LABS: Alanine Aminotransferase 517 U/L (6-35); Albumin Level 2.6 g/dL (3.5-5.1); Alkaline Phosphatase 456 U/L (38-126); Anion Gap 9 mmol/L (4-12); Aspartate Amino Transferase 134 U/L (14-36); Bilirubin,Total 1.2 mg/dL (0.2-1.3); Blood Urea Nitrogen 24 mg/dL (7-17); Calcium 8.1 mg/dL (8.4-10.2); Carbon Dioxide 23 mmol/L (22-30); Chloride 100 mmol/L (98-107); Estimated CRCL calculation 9 ml/min; Estimated Glomerular Filt Rate 9; Glucose 101 mg/dL (65-110); Magnesium 2.2 mg/dL (1.6-2.3); Sodium 132 mmol/L (137-145); Total Protein 4.7 g/dL (6.3-8.2)
[2024-10-14] MEDS: LEVOTHYROXINE SODIUM 125 MCG TABLET BY MOUTH (05:22)
[2024-10-14 05:44] LABS: Partial Thromboplastin Time 48.4 Seconds (22.3-36.8)
[2024-10-14] MEDS: HEPARIN SODIUM 5,000 UNITS/ML VIAL 5500 UNITS IV PUSH (06:18)
[2024-10-14 06:40] LABS: Glucose Point of Care 101 mg/dl (65-105)
[2024-10-14 07:59] LABS: Hepatitis B Core Ab Total NON-REACTIVE (NON-REACTIVE)
--- NOTE | 2024-10-14 08:40 | PCOTNOTE ---
Patient out of the room, Patient is dialysis at this time.
--- NOTE | 2024-10-14 08:40 | PCPTNOTE ---
Attempted to see patient for PT, however patient was out of the room for dialysis.
--- NOTE | 2024-10-14 09:32 | P.PNNP_ITS ---
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 on [facility]/dialysis due to volume overload unresponsive to diuretic therapy * no critical electrolytes but issues with hyponatremia noted * fluid removal with HD as tolerated * follow respiratory status * follow trend of repeat labs and UOP (2) Acute hypoxic respiratory failure: Code(s): J96.01 - Acute respiratory failure with hypoxia Status: Chronic Assessment and Plan: * felt more related to renal failure than overt CHF * imaging with evidence of pulmonary edema * ongoing fluid removal with HD as tolerated * monitor respiratory status * wean supplemental oxygen as tolerated (3) CHF (congestive heart failure): Code(s): I50.9 - Heart failure, unspecified Status: Acute Assessment and Plan: * recent Echo noted: * left ventricle is normal in size and systolic function * left ventricular ejection fraction is visually estimated to be 60-65% * paradoxical septal wall motion abnormality suggestive of bundle-branch block * right ventricle is normal in size and systolic function * no significant valvular abnormalities. * suspect volume overload/pulmonary edema/pleural effusion secondary to renal failure than CHF * failed trial of diuretic therapy * ongoing fluid removal with HD (4) Atrial fibrillation with RVR: Code(s): I48.91 - Unspecified atrial fibrillation Status: Acute Assessment and Plan: * Cardiology recommendations noted * diltiazem for rate control * on anticoagulation (5) Anemia: Code(s): D64.9 - Anemia, unspecified Status: Acute Assessment and Plan: * related to CHAD and acute illness * no need for JAMISON as of yet * follow trend of H/H (6) Elevated liver enzymes: Code(s): R74.8 - Abnormal levels of other serum enzymes Status: Acute Assessment and Plan: * as noted on admission * slow improvement noted * thought to be related to altered hemodynamics/previous hypotension * GI following (7) Hypertension: Qualifiers: Hypertension type: unspecified Qualified Code(s): I10 - Essential (primary) hypertension Code(s): I10 - Essential (primary) hypertension Status: Chronic Assessment and Plan: * clinically better at this time * back on diltiazem (more so for rate control) * follow trend of hemodynamics (8) Diabetes: Code(s): E11.9 - Type 2 diabetes mellitus without complications Status: Acute Assessment and Plan: * follow accu-checks * glycemic control per hospitalist Will continue to follow. L Subjective Date/time seen: 10/14/24 09:32 Interval history: Follow-up for acute kidney injury/acute renal failure. Tolerated dialysis treatment yesterday and tolerating 3rd dialysis treatment at the time of my visit (seen on HD at 09:20AM); breathing seems to be doing better but still has on/off nausea; anxiety seems a bit worse during dialysis treatments as well; still not making much urine. Exam 2 Narrative: General: elderly and mildly ill-appearing female in NAD Heart: normal S1 and S2; no rub Lungs: coarse and decreased/diminished at bases Abdomen: soft, nontender, nondistended, positive bowel sounds Extremities: no cyanosis or clubbing; no edema Skin: no nodules Objective Data Vital Signs Vital Signs: Vital Signs Temp Pulse Resp BP Pulse Ox O2 Del Method O2 Flow Rate 10/14/24 09:30 90 153/79 H 10/14/24 09:15 89 151/82 H 10/14/24 09:05 152/83 H 10/14/24 09:00 99 152/83 H 10/14/24 08:55 152/79 H 10/14/24 08:46 96 152/79 H 10/14/24 08:39 97 143/78 H 10/14/24 08:25 97.7 F 99 18 147/81 H 10/14/24 08:25 2 10/14/24 08:12 97.5 F L 103 H 20 152/66 H 97 10/14/24 08:00 87 10/14/24 07:00 97 10/14/24 04:00 97.8 F 97 18 129/58 L 98 10/14/24 03:44 87 24 H 95 Nasal Cannula 2 10/14/24 03:42 89 10/14/24 02:20 92 20 10/14/24 02:05 95 24 H 10/14/24 00:00 82 10/14/24 00:00 93 16 95 Nasal Cannula 2 10/13/24 23:50 97.8 F 96 16 114/54 L 95 10/13/24 22:00 84 10/13/24 21:30 88 98 Nasal Cannula 2 10/13/24 21:00 88 16 10/13/24 20:44 87 16 10/13/24 20:44 81 96 Room Air 10/13/24 20:00 97.7 F 91 17 131/57 L 97 10/13/24 20:00 98 10/13/24 20:00 98 20 100 Room Air 10/13/24 18:53 96 10/13/24 16:00 89 10/13/24 16:00 Room Air 10/13/24 15:58 98.0 F 96 20 136/58 L 100 10/13/24 15:04 Room Air 10/13/24 14:26 Room Air 10/13/24 14:00 97 Intake/Output Intake/Output: Intake & Output 10/11/24 10/12/24 10/13/24 10/14/24 23:59 23:59 23:59 23:59 Intake Total 4850.7 836.8 1072.2 413.6 Output Total 160 2500 3300 2000 Balance 4690.7 -1663.2 -2227.8 -1586.4 Meds/Results Medications: Active Medications Generic Name Dose Route Start Last Admin Trade Name Freq PRN Reason Stop Dose Admin Acetaminophen 500 mg 10/10/24 23:07 10/13/24 20:23 Acetaminophen 500 Mg Tablet PO 500 mg Q6H PRN Administration Mild Pain (1-3) or Fever Albuterol/Ipratropium 3 ml 10/13/24 02:00 10/14/24 08:17 Ipratropium 0.5 Mg/Albuterol Sulfate 2.5 Mg Ampul.Neb 3 Ml INHALATION Not Given Q6HRT JIGNA Apixaban 5 mg 10/14/24 12:00 10/14/24 12:45 Apixaban 5 Mg Tablet PO 5 mg Q12HR JIGNA Administration Aspirin 81 mg 10/10/24 09:00 10/14/24 10:05 Aspirin 81 Mg Enteric Tablet PO 81 mg DAILY JIGNA Administration Buspirone HCl 5 mg 10/12/24 11:30 10/14/24 10:05 Buspirone Hcl 5 Mg Tablet PO 5 mg Q12HR JIGNA Administration Dextrose 12.5 gm 10/09/24 20:02 Dextrose 50% 25 Gm/50 Ml Syringe IV PUSH PRN PRN Hypoglycemia Protocol Diltiazem HCl 120 mg 10/11/24 12:00 10/14/24 10:06 Diltiazem Hcl Cd 120 Mg Cap.24hr PO 120 mg QAM JIGNA Administration Epoetin August-epbx 4,000 units 10/14/24 18:15 10/14/24 09:52 Epoetin August-Epbx 4,000 Units/Ml Vial IV PUSH 10/14/24 18:16 4,000 units ONCE ONE Administration Escitalopram Oxalate 20 mg 10/10/24 09:00 10/14/24 10:06 Escitalopram Oxalate 10 Mg Tablet PO 20 mg DAILY JIGNA Administration Glucagon 1 mg 10/09/24 20:02 Glucagon For Inj 1 Mg Vial IM PRN PRN Hypoglycemia Protocol Glucose 15 gm 10/09/24 20:02 Glucose Oral Gel 15 Gm Of Glucse In 37.5 Gm Tube PO PRN PRN Hypoglycemia Protocol Hydromorphone HCl 0.5 mg 10/10/24 00:28 10/11/24 05:09 Hydromorphone Hcl Inj (*Crx) 2 Mg/Ml Vial IV PUSH 0.5 mg Q3H PRN Administration Pain Rated 7-10 Dextrose 1,000 mls @ 100 mls/hr 10/09/24 20:02 Dextrose 5% 1,000 Ml IVPB PRN PRN Hypoglycemia Protocol Albumin Human 50 mls @ 999 mls/hr 10/12/24 12:35 Albutein IVPB 11/11/24 12:34 Q10M PRN HYPOTENSION Insulin Aspart 2 - 5 units 10/10/24 00:00 10/14/24 11:58 Insulin Aspart (*Bkc) 100 Units/Ml SUB-Q Not Given Q6HR [facility] Protocol Levothyroxine Sodium 125 mcg 10/10/24 06:30 10/14/24 05:22 Levothyroxine Sodium 125 Mcg Tablet BY MOUTH 125 mcg Q48H JIGNA Administration Levothyroxine Sodium 150 mcg 10/11/24 06:30 10/13/24 06:16 Levothyroxine Sodium 150 Mcg Tablet PO Not Given Q48H JIGAN Montelukast Sodium 10 mg 10/09/24 21:35 10/13/24 20:23 Montelukast Sodium 10 Mg Tablet BY MOUTH 10 mg QHS JIGNA Administration Radiology Results: ITS Impressions Abdomen/Pelvis CT 10/09/24 16:08 IMPRESSION: Trace pericardial effusion. Scattered calcified and noncalcified sub-6 mm pulmonary nodules, likely representing granulomas. Mild inflammatory change surrounding the pancreatic head and uncinate process, correlate for clinical findings of pancreatitis. Mild inflammatory stranding/edema in the proximal bile ducts, presumably related to the pancreatic process, noting that ascending cholangitis could appear similarly. Mild dilation of the third and fourth portions of the duodenum, presumably ileus related to the pancreatic process. Abdomen X-Ray 10/10/24 06:55 Impression: No acute abnormality is seen. Irregular markedly hyperdense opacity in the pelvis. Correlate for surgical/procedural history or traumatic history/foreign body. Renal Ultrasound 10/10/24 11:35 Impression: Unremarkable ultrasound of the kidneys and urinary bladder. Chest X-Ray 10/14/24 05:44 Impression: Extensive chronic interstitial disease with possible minimal left pleural effusion. Right IJ line in place. Labs Labs: Laboratory Tests 10/14/24 04:35 10/14/24 04:10 Calcium 8.1 L Magnesium 2.2 Total Bilirubin 1.2 AST 134 H ALT 517 H Alkaline Phosphatase 456 H Total Protein 4.7 L Albumin 2.6 L
[2024-10-14] MEDS: EPOETIN ALFA-EPBX 4,000 UNITS/ML VIAL 4000 UNITS IV PUSH (09:52)
[2024-10-14] MEDS: ASPIRIN 81 MG ENTERIC TABLET PO (10:05)
[2024-10-14] MEDS: busPIRone HCL 5 MG TABLET PO ×3 (10:05→20:31)
[2024-10-14] MEDS: dilTIAZem HCL CD 120 MG CAP.24HR PO (10:06)
[2024-10-14] MEDS: ESCITALOPRAM OXALATE 10 MG TABLET 20 MG PO (10:06)
--- NOTE | 2024-10-14 10:31 | PC.NURSE ---
This patient, Allyson Tello, was received from IMU on 10/14/24 at 1031. Patient currently in dialysis. No complaints at this time.
--- NOTE | 2024-10-14 11:04 | P.PNIM_ITS ---
Progress Note: A&P Assessment and Plan (1) CHAD (acute kidney injury): Code(s): N17.9 - Acute kidney failure, unspecified Status: Acute Assessment and Plan: with fluid overload on dialysis Discussed with Dr Martin and plan is to hold dialysis from tomorrow and monitor renal function until weekend, to see if it recovers Cr today 4.68 from 6.11 monitor (2) Constipation: Code(s): K59.00 - Constipation, unspecified Status: Acute Assessment and Plan: Senna (3) Diabetes: Code(s): E11.9 - Type 2 diabetes mellitus without complications Status: Acute Assessment and Plan: Accu-Cheks q.6 SSI Hold home diabetes medications (4) Hypertension: Qualifiers: Hypertension type: unspecified Qualified Code(s): I10 - Essential (primary) hypertension Code(s): I10 - Essential (primary) hypertension Status: Chronic Assessment and Plan: home emds on hold as hypotensive (5) CHF (congestive heart failure): Code(s): I50.9 - Heart failure, unspecified Status: Acute Assessment and Plan: Last echo 2021 ejection fraction 55-60% cardiology on board (6) Atrial fibrillation with RVR: Code(s): I48.91 - Unspecified atrial fibrillation Status: Acute Assessment and Plan: new onset of afib Continue Cardizem 120mg and Eliquis 5mg bid po Plan Ischemic hepatitis AST/ALT 4607/3007, today 134/517 Bili 3.9 now 1.8 Hep B antibody negative GI following Bronchospasm On duoneb treatment Reports intermitted nausea today QTc 511- so ideally avoid medication that could prolong it DVT prophylaxis on Eliquis Subjective Date/time seen: 10/14/24 11:04 Interval history: comfortable at bedside, for dialysis today Review of Systems Review of Systems: 12 systems were reviewed and are negativ e except for as per HPI. Exam Narrative: General: well appearing, appears stated age. HEENT: normocephalic, atraumatic. Mucous membranes moist. EOMI, PERRLA, bilateral sclera anicteric, no conjunctival injection. Neck supple without JVD, lymphadenopathy, or bruit. Respiratory: clear to ascultation bilaterally. No rales/rhonic/wheezes. Cardiovascular: normal S1-S2 upon ascultation. No murmurs, rubs, or clicks. PMI is nondisplaced, capillary refill less than 3 second. Abdomen: Soft, round, no pulsatile masses, nondistended and nontender. No rebound, no guarding. No CVA tenderness, no hepatosplenomegaly. Bowel sounds present Extremities: No cyanosis, clubbing, or edema present. Pulses are palpable 2/2. Active ROM to all four extremities. Neuro: Alert and orientated x 4. PERRLA. Cranial nerves 2-12 intact without focal deficit. Skin: Warm, dry, and intact, without rash, erythema, or lesion. Psych: pleasant, cooperative, normal speech, normal affect, no hallucinations, no dysarthia Const: General: comfortable Objective Data Vital Signs Vital Signs: Vital Signs - 24 hr 10/13/24 11:10 10/13/24 11:54 10/13/24 12:00 Temperature 98.6 F 97.5 F L Pulse Rate 115 H 112 H Respiratory Rate 22 H 20 Blood Pressure 159/71 H 140/75 Pulse Oximetry 98 99 99 Oxygen Delivery Nasal Cannula Oxygen Flow Rate 3 Fraction of Inspired Oxygen 10/13/24 12:00 10/13/24 14:00 10/13/24 14:26 Temperature Pulse Rate 111 H 97 Respiratory Rate Blood Pressure Pulse Oximetry Oxygen Delivery Room Air Oxygen Flow Rate Fraction of Inspired Oxygen 10/13/24 15:04 10/13/24 15:58 10/13/24 16:00 Temperature 98.0 F Pulse Rate 96 Respiratory Rate 20 Blood Pressure 136/58 L Pulse Oximetry 100 Oxygen Delivery Room Air Room Air Oxygen Flow Rate Fraction of Inspired Oxygen 10/13/24 16:00 10/13/24 18:53 10/13/24 20:00 Temperature Pulse Rate 89 96 98 Respiratory Rate 20 Blood Pressure Pulse Oximetry 100 Oxygen Delivery Room Air Oxygen Flow Rate Fraction of Inspired Oxygen 10/13/24 20:00 10/13/24 20:00 10/13/24 20:44 Temperature 97.7 F Pulse Rate 98 91 81 Respiratory Rate 17 Blood Pressure 131/57 L Pulse Oximetry 97 96 Oxygen Delivery Room Air Oxygen Flow Rate Fraction of Inspired Oxygen 21 10/13/24 20:44 10/13/24 21:00 10/13/24 21:30 Temperature Pulse Rate 87 88 88 Respiratory Rate 16 16 Blood Pressure Pulse Oximetry 98 Oxygen Delivery Nasal Cannula Oxygen Flow Rate 2 Fraction of Inspired Oxygen 10/13/24 22:00 10/13/24 23:50 10/14/24 00:00 Temperature 97.8 F Pulse Rate 84 96 93 Respiratory Rate 16 16 Blood Pressure 114/54 L Pulse Oximetry 95 95 Oxygen Delivery Nasal Cannula Oxygen Flow Rate 2 Fraction of Inspired Oxygen 10/14/24 00:00 10/14/24 02:05 10/14/24 02:20 Temperature Pulse Rate 82 95 92 Respiratory Rate 24 H 20 Blood Pressure Pulse Oximetry Oxygen Delivery Oxygen Flow Rate Fraction of Inspired Oxygen 10/14/24 03:42 10/14/24 03:44 10/14/24 04:00 Temperature 97.8 F Pulse Rate 89 87 97 Respiratory Rate 24 H 18 Blood Pressure 129/58 L Pulse Oximetry 95 98 Oxygen Delivery Nasal Cannula Oxygen Flow Rate 2 Fraction of Inspired Oxygen 10/14/24 07:00 10/14/24 08:00 10/14/24 08:12 Temperature 97.5 F L Pulse Rate 97 87 103 H Respiratory Rate 20 Blood Pressure 152/66 H Pulse Oximetry 97 Oxygen Delivery Oxygen Flow Rate Fraction of Inspired Oxygen 10/14/24 08:25 10/14/24 08:25 10/14/24 08:39 Temperature 97.7 F Pulse Rate 99 97 Respiratory Rate 18 Blood Pressure 147/81 H 143/78 H Pulse Oximetry Oxygen Delivery Oxygen Flow Rate 2 Fraction of Inspired Oxygen 10/14/24 08:46 10/14/24 08:55 10/14/24 09:00 Temperature Pulse Rate 96 99 Respiratory Rate Blood Pressure 152/79 H 152/79 H 152/83 H Pulse Oximetry Oxygen Delivery Oxygen Flow Rate Fraction of Inspired Oxygen 10/14/24 09:05 10/14/24 09:15 10/14/24 09:30 Temperature Pulse Rate 89 90 Respiratory Rate Blood Pressure 152/83 H 151/82 H 153/79 H Pulse Oximetry Oxygen Delivery Oxygen Flow Rate Fraction of Inspired Oxygen 10/14/24 09:45 10/14/24 09:55 10/14/24 10:00 Temperature Pulse Rate 95 94 Respiratory Rate Blood Pressure 148/80 H 148/80 H 148/83 H Pulse Oximetry Oxygen Delivery Oxygen Flow Rate Fraction of Inspired Oxygen Intake/Output Intake/Output: Intake & Output 10/11/24 10/12/24 10/13/24 10/14/24 23:59 23:59 23:59 23:59 Intake Total 4850.7 836.8 1072.2 173.6 Output Total 160 2500 3300 Balance 4690.7 -1663.2 -2227.8 173.6 Meds/Results Medications: Active Medications Generic Name Dose Route Start Last Admin Trade Name Freq PRN Reason Stop Dose Admin Acetaminophen 500 mg 10/10/24 23:07 10/13/24 20:23 Acetaminophen 500 Mg Tablet PO 500 mg Q6H PRN Administration Mild Pain (1-3) or Fever Albuterol/Ipratropium 3 ml 10/13/24 02:00 10/14/24 08:17 Ipratropium 0.5 Mg/Albuterol Sulfate 2.5 Mg Ampul.Neb 3 Ml INHALATION Not Given Q6HRT JIGNA Apixaban 5 mg 10/14/24 21:00 Apixaban 5 Mg Tablet PO Q12HR JIGNA Aspirin 81 mg 10/10/24 09:00 10/14/24 10:05 Aspirin 81 Mg Enteric Tablet PO 81 mg DAILY JIGNA Administration Buspirone HCl 5 mg 10/12/24 11:30 10/14/24 10:05 Buspirone Hcl 5 Mg Tablet PO 5 mg Q12HR JIGNA Administration Dextrose 12.5 gm 10/09/24 20:02 Dextrose 50% 25 Gm/50 Ml Syringe IV PUSH PRN PRN Hypoglycemia Protocol Diltiazem HCl 120 mg 10/11/24 12:00 10/14/24 10:06 Diltiazem Hcl Cd 120 Mg Cap.24hr PO 120 mg QAM JIGNA Administration Epoetin August-epbx 4,000 units 10/14/24 18:15 10/14/24 09:52 Epoetin August-Epbx 4,000 Units/Ml Vial IV PUSH 10/14/24 18:16 4,000 units ONCE ONE Administration Escitalopram Oxalate 20 mg 10/10/24 09:00 10/14/24 10:06 Escitalopram Oxalate 10 Mg Tablet PO 20 mg DAILY JIGNA Administration Glucagon 1 mg 10/09/24 20:02 Glucagon For Inj 1 Mg Vial IM PRN PRN Hypoglycemia Protocol Glucose 15 gm 10/09/24 20:02 Glucose Oral Gel 15 Gm Of Glucse In 37.5 Gm Tube PO PRN PRN Hypoglycemia Protocol Hydromorphone HCl 0.5 mg 10/10/24 00:28 10/11/24 05:09 Hydromorphone Hcl Inj (*Crx) 2 Mg/Ml Vial IV PUSH 0.5 mg Q3H PRN Administration Pain Rated 7-10 Dextrose 1,000 mls @ 100 mls/hr 10/09/24 20:02 Dextrose 5% 1,000 Ml IVPB PRN PRN Hypoglycemia Protocol Albumin Human 50 mls @ 999 mls/hr 10/12/24 12:35 Albutein IVPB 11/11/24 12:34 Q10M PRN HYPOTENSION Insulin Aspart 2 - 5 units 10/10/24 00:00 10/14/24 10:05 Insulin Aspart (*Bkc) 100 Units/Ml SUB-Q Not Given Q6HR JIGNA Protocol Levothyroxine Sodium 125 mcg 10/10/24 06:30 10/14/24 05:22 Levothyroxine Sodium 125 Mcg Tablet BY MOUTH 125 mcg Q48H JIGNA Administration Levothyroxine Sodium 150 mcg 10/11/24 06:30 10/13/24 06:16 Levothyroxine Sodium 150 Mcg Tablet PO Not Given Q48H JIGNA Montelukast Sodium 10 mg 10/09/24 21:35 10/13/24 20:23 Montelukast Sodium 10 Mg Tablet BY MOUTH 10 mg QHS JIGNA Administration Radiology Results: ITS Impressions Abdomen/Pelvis CT 10/09/24 16:08 IMPRESSION: Trace pericardial effusion. Scattered calcified and noncalcified sub-6 mm pulmonary nodules, likely representing granulomas. Mild inflammatory change surrounding the pancreatic head and uncinate process, correlate for clinical findings of pancreatitis. Mild inflammatory stranding/edema in the proximal bile ducts, presumably related to the pancreatic process, noting that ascending cholangitis could appear similarly. Mild dilation of the third and fourth portions of the duodenum, presumably ileus related to the pancreatic process. Abdomen X-Ray 10/10/24 06:55 Impression: No acute abnormality is seen. Irregular markedly hyperdense opacity in the pelvis. Correlate for surgical/procedural history or traumatic history/foreign body. Renal Ultrasound 10/10/24 11:35 Impression: Unremarkable ultrasound of the kidneys and urinary bladder. Chest X-Ray 10/14/24 05:44 Impression: Extensive chronic interstitial disease with possible minimal left pleural effusion. Right IJ line in place. Labs Labs: Laboratory Results - last 24 hr 10/13/24 10/13/24 10/13/24 08:07 11:33 19:00 WBC RBC Hgb Hct MCV MCH MCHC RDW Plt Count MPV Immature Gran % (Auto) Neut % (Auto) Lymph % (Auto) [place] % (Auto) Eos % (Auto) Baso % (Auto) Lymph # (Auto) [place] # (Auto) Eos # (Auto) Baso # (Auto) Abs Immat Gran (auto) Absolute Neuts (auto) Absolute Nucleated RBC Nucleated RBC % APTT Sodium Potassium Chloride Carbon Dioxide Anion Gap BUN Creatinine Estim Creat Clear Calc Estimated GFR Glucose POC Capillary Glucose 104 107 H Lactic Acid Calcium Magnesium Total Bilirubin AST ALT Alkaline Phosphatase Total Protein Albumin Hep B Core Total Ab Non-reactive 10/14/24 10/14/24 10/14/24 00:16 04:10 04:35 WBC 9.8 RBC 3.79 L Hgb 10.5 L Hct 31.7 L MCV 83.6 MCH 27.7 MCHC 33.1 RDW 15.7 H Plt Count 190 MPV 9.8 Immature Gran % (Auto) 0.7 H Neut % (Auto) 67.2 Lymph % (Auto) 14.7 L [place] % (Auto) 15.5 H Eos % (Auto) 1.3 Baso % (Auto) 0.6 Lymph # (Auto) 1.44 [place] # (Auto) 1.5 H Eos # (Auto) 0.1 Baso # (Auto) 0.1 Abs Immat Gran (auto) 0.07 H Absolute Neuts (auto) 6.6 Absolute Nucleated RBC 0.000 Nucleated RBC % 0.0 APTT 48.4 H Sodium 132 L Potassium 4.0 Chloride 100 Carbon Dioxide 23 Anion Gap 9 BUN 24 H Creatinine 4.68 H Estim Creat Clear Calc 9 Estimated GFR 9 L Glucose 101 POC Capillary Glucose 111 H Lactic Acid 1.0 Calcium 8.1 L Magnesium 2.2 Total Bilirubin 1.2 AST 134 H ALT 517 H Alkaline Phosphatase 456 H Total Protein 4.7 L Albumin 2.6 L Hep B Core Total Ab 10/14/24 06:37 WBC RBC Hgb Hct MCV MCH MCHC RDW Plt Count MPV Immature Gran % (Auto) Neut % (Auto) Lymph % (Auto) [place] % (Auto) Eos % (Auto) Baso % (Auto) Lymph # (Auto) [place] # (Auto) Eos # (Auto) Baso # (Auto) Abs Immat Gran (auto) Absolute Neuts (auto) Absolute Nucleated RBC Nucleated RBC % APTT Sodium Potassium Chloride Carbon Dioxide Anion Gap BUN Creatinine Estim Creat Clear Calc Estimated GFR Glucose POC Capillary Glucose 101 Lactic Acid Calcium Magnesium Total Bilirubin AST ALT Alkaline Phosphatase Total Protein Albumin Hep B Core Total Ab Quality VTE Prophylaxis VTE prophylaxis: mechanical ordered
[2024-10-14 11:59] LABS: Glucose Point of Care 81 mg/dl (65-105)
[2024-10-14] MEDS: APIXABAN 5 MG TABLET PO ×2 (12:45→20:30)
[2024-10-14] MEDS: ACETAMINOPHEN 500 MG TABLET PO ×2 (15:11→20:32)
[2024-10-14 18:09] LABS: Glucose Point of Care 103 mg/dl (65-105)
[2024-10-14] MEDS: MONTELUKAST SODIUM 10 MG TABLET BY MOUTH (20:31)
[2024-10-14 23:08] LABS: Glucose Point of Care 117 mg/dl (65-105)
[2024-10-15] VITALS (33 sets, daily range): BP systolic 134–168; BP diastolic 62–91; PULSE 70–193; RESP 16–24; TEMP 36.1–37.2; O2SAT 90–99
[2024-10-15] MEDS: LEVALBUTEROL NEB 1.25 MG/3 ML INHALATION (00:15)
[2024-10-15] MEDS: LORazepam INJ (*CRX) 2 MG/ML VIAL 0.25 MG IV PUSH (04:49)
[2024-10-15 05:25] LABS: Basophils Absolute Auto 0.1 K/mm3 (0.0-0.1); Basophils Percent Auto 0.7 % (0.2-1.2); Eosinophils Absolute Auto 0.1 K/mm3 (0-0.3); Eosinophils Percent Auto 0.7 % (0-4.4); Hematocrit 33.6 % (37.0-47.0); Hemoglobin 10.7 g/dL (12.0-15.0); Immature Granulocyte Absolute 0.18 K/mm3 (0.00-0.031); Immature Granulocyte Percent A 1.5 % (0-0.5); Lymphocytes Absolute Auto 1.29 K/mm3 (0.9-3.2); Mean Corpuscular HGB Conc 31.8 g/dl (32-36); Mean Corpuscular Hemoglobin 27.7 pg (26-34); Mean Platelet Volume 10.1 fl (7.4-10.4); Monocytes Absolute Auto 1.5 K/mm3 (0.1-0.6); Monocytes Percent Auto 12.6 % (2.6-8.5); Neutrophils Absolute Auto 8.6 K/mm3 (1.3-6.7); Neutrophils Percent Auto 73.5 % (45.5-73.1); Platelet Count Result 200 k/mm3 (150-375); Red Blood Count 3.86 M/mm3 (4.2-5.4); Red Cell Distribution Width 16.5 % (11.5-14.5); White Blood Count 11.7 K/mm3 (4.5-10.0)
[2024-10-15 05:44] LABS: Glucose Point of Care 115 mg/dl (65-105)
[2024-10-15 05:45] LABS: Alanine Aminotransferase 436 U/L (6-35); Albumin Level 3.1 g/dL (3.5-5.1); Alkaline Phosphatase 473 U/L (38-126); Anion Gap 7 mmol/L (4-12); Aspartate Amino Transferase 100 U/L (14-36); Bilirubin,Total 1.3 mg/dL (0.2-1.3); Blood Urea Nitrogen 17 mg/dL (7-17); Calcium 8.6 mg/dL (8.4-10.2); Carbon Dioxide 23 mmol/L (22-30); Chloride 102 mmol/L (98-107); Estimated CRCL calculation 11 ml/min; Estimated Glomerular Filt Rate 12; Glucose 125 mg/dL (65-110); Magnesium 2.1 mg/dL (1.6-2.3); Potassium 4.1 mmol/L (3.4-5.0); Sodium 132 mmol/L (137-145); Total Protein 5.9 g/dL (6.3-8.2)
[2024-10-15] MEDS: IPRATROPIUM 0.5 MG/ALBUTEROL SULFATE 2.5 MG AMPUL.NEB 3 ML INHALATION ×3 (07:55→20:30)
[2024-10-15] MEDS: ASPIRIN 81 MG ENTERIC TABLET PO (08:26)
[2024-10-15] MEDS: APIXABAN 5 MG TABLET PO ×2 (08:26→22:08)
[2024-10-15] MEDS: LEVOTHYROXINE SODIUM 150 MCG TABLET PO (08:26)
[2024-10-15] MEDS: dilTIAZem HCL CD 120 MG CAP.24HR PO (08:26)
[2024-10-15] MEDS: busPIRone HCL 5 MG TABLET PO (08:27)
[2024-10-15] MEDS: ESCITALOPRAM OXALATE 10 MG TABLET 20 MG PO (08:27)
[2024-10-15 08:59] LABS: Alveolar/Arterial O2 Gradient 119.4 mmHg; Base Excess ABG -2.2 mEq/l (+/-2.0); Device NASAL CANNULA; Fractional Inspired Oxygen 32 %; HCO3 ABG 22.4 mEq/l (22.0-26.0); Modified Allen's Test Pass; Oxygen Content ABG 14.4 %vol (16.0-22.0); Oxygen Saturation ABG 92.7 % (95.0-100.0); Oxyhemoglobin 91.9 % THb (90.0-100.0); PCO2 ABG 37.6 mmHg (35.0-45.0); PO2 ABG 64.8 mmHg (80.0-100.0); PO2 FiO2 Ratio Arterial Blood 2.03 %; Site Drawn LEFT RADIAL; Total Hemoglobin 11.1 g/dL (12.0-18.0); pH ABG 7.392 (7.350-7.450)
--- NOTE | 2024-10-15 09:07 | PCPTNOTE ---
Attempted to see patient for PT, per RN patient not feeling well and has respirations of 30 but can ask patient. Patient declined therapy at this time and not feeling well today.
[2024-10-15 09:53] LABS: NT Pro B Type Natriuretic Pept > 30000 pg/mL (19.9-100)
--- NOTE | 2024-10-15 11:09 | PCOTNOTE ---
Patient refused treatment this session due to not feeling well. Patient is curled up on her side and grimacing. BIPIN Dasilva is aware.
--- NOTE | 2024-10-15 11:49 | PCNFU ---
Nutrition Follow-Up Complete: Suboptimal po intake related to appetite as evidenced by pt report Goal: PO intake greater than 50% Patient is not meeting goal. Will continue with current goal. Pt current nutrition Full liquid with Ensure Enlive. Last recorded weight is 73.8 kg, down from 81 kg on admit. Bowel Motility: +BM reported 10/15 Labs Reviewed:NovoLog, LR Meds Noted:PO4 4.9, Cr 3.7, Glu 125, Na 132, Alb 3.1 Skin: WNL Additional Notes: Patient remains on a full liquid diet. Poor po intake reported by nursing. Discussions regarding possible Dialysis. Nephrology following. We will continue to send diet supplements of Ensure Enlive providing 350 kcal and 20 gm protein. Monitor intake, wt, labs. Follow up in 3 days.
[2024-10-15 12:13] LABS: Glucose Point of Care 101 mg/dl (65-105)
--- NOTE | 2024-10-15 12:29 | PC.NURSE ---
Patient off unit for dialysis.
--- NOTE | 2024-10-15 13:15 | P.PNNP_ITS ---
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 on BILINGUAL RECRUITER/dialysis due to volume overload unresponsive to diuretic therapy * no critical electrolytes but issues with hyponatremia noted * fluid removal with HD as tolerated * follow respiratory status * HD on 10/12, 10/13, and 10/14 -- plan next treatment on 10/16 if needed * follow trend of repeat labs and UOP (2) Acute hypoxic respiratory failure: Code(s): J96.01 - Acute respiratory failure with hypoxia Status: Chronic Assessment and Plan: * felt more related to renal failure than overt CHF * imaging with evidence of pulmonary edema * ongoing fluid removal with HD as tolerated * monitor respiratory status * given CXR findings and tachypnea today (10/15), plan DUF today for further fluid removal * consider CT of chest if respiratory status does not improve with ultrafiltration/fluid removal * wean supplemental oxygen as tolerated (3) CHF (congestive heart failure): Code(s): I50.9 - Heart failure, unspecified Status: Acute Assessment and Plan: * recent Echo noted: * left ventricle is normal in size and systolic function * left ventricular ejection fraction is visually estimated to be 60-65% * paradoxical septal wall motion abnormality suggestive of bundle-branch block * right ventricle is normal in size and systolic function * no significant valvular abnormalities. * suspect volume overload/pulmonary edema/pleural effusion secondary to renal failure than CHF * failed trial of diuretic therapy * ongoing fluid removal with HD to acheive euvolemia (4) Atrial fibrillation with RVR: Code(s): I48.91 - Unspecified atrial fibrillation Status: Acute Assessment and Plan: * Cardiology recommendations noted * diltiazem for rate control * on anticoagulation (5) Anemia: Code(s): D64.9 - Anemia, unspecified Status: Acute Assessment and Plan: * related to CHAD and acute illness * no need for JAMISON as of yet * follow trend of H/H (6) Elevated liver enzymes: Code(s): R74.8 - Abnormal levels of other serum enzymes Status: Acute Assessment and Plan: * as noted on admission * slow improvement noted * thought to be related to altered hemodynamics/previous hypotension * GI following (7) Hypertension: Qualifiers: Hypertension type: unspecified Qualified Code(s): I10 - Essential (primary) hypertension Code(s): I10 - Essential (primary) hypertension Status: Chronic Assessment and Plan: * clinically better at this time * back on diltiazem (more so for rate control) * follow trend of hemodynamics (8) Diabetes: Code(s): E11.9 - Type 2 diabetes mellitus without complications Status: Acute Assessment and Plan: * follow accu-checks * glycemic control per hospitalist Will continue to follow. L Subjective Date/time seen: 10/15/24 13:15 Interval history: Follow-up for acute kidney injury/acute renal failure. Tolerated dialysis treatment yesterday without any issues or problems; earlier this morning, she apparently was somewhat tachypneic (respiratory rate in the 30s) and subsequent CXR with evidence of bilateral airspace disease/edema/fluid; getting ultrafiltration treatment at the time of my visit -- breathing seems be doing better already. Exam 2 Narrative: General: elderly and mildly ill-appearing female in NAD Heart: normal S1 and S2; no rub Lungs: coarse and decreased/diminished at bases Abdomen: soft, nontender, nondistended, positive bowel sounds Extremities: no cyanosis or clubbing; no edema Skin: no nodules Objective Data Vital Signs Vital Signs: Vital Signs Temp Pulse Resp BP Pulse Ox O2 Del Method O2 Flow Rate 10/15/24 13:15 85 165/78 H 10/15/24 13:00 87 152/86 H 10/15/24 12:45 94 168/88 H 10/15/24 12:38 100 164/80 H 10/15/24 12:30 3 10/15/24 12:30 97.2 F L 102 H 20 162/76 H 97 10/15/24 12:00 193 H 10/15/24 08:26 102 H 10/15/24 08:26 102 H 24 H 92 Nasal Cannula 3 10/15/24 08:23 97.4 F L 102 H 24 H 143/64 H 92 10/15/24 08:05 76 16 10/15/24 07:57 74 20 90 Nasal Cannula 2 10/15/24 07:57 74 16 10/15/24 04:30 91 Nasal Cannula 2 10/15/24 04:00 109 H 10/15/24 04:00 97.6 F 107 H 24 H 134/86 91 10/15/24 00:22 70 16 10/15/24 00:15 72 16 10/15/24 00:00 95 10/14/24 23:58 96.8 F L 96 20 141/75 H 96 10/14/24 20:05 95 18 10/14/24 20:00 91 10/14/24 19:55 93 16 10/14/24 19:52 97.7 F 90 20 131/60 98 Intake/Output Intake/Output: Intake & Output 10/12/24 10/13/24 10/14/24 10/15/24 23:59 23:59 23:59 23:59 Intake Total 836.8 1072.2 904.6 100 Output Total 2500 3300 2000 3000 [facility] -1663.2 -2227.8 -1095.4 -2900 Meds/Results Medications: Active Medications Generic Name Dose Route Start Last Admin Trade Name Freq PRN Reason Stop Dose Admin Acetaminophen 500 mg 10/10/24 23:07 10/14/24 20:32 Acetaminophen 500 Mg Tablet PO 500 mg Q6H PRN Administration Mild Pain (1-3) or Fever Albuterol/Ipratropium 3 ml 10/13/24 02:00 10/15/24 14:30 Ipratropium 0.5 Mg/Albuterol Sulfate 2.5 Mg Ampul.Neb 3 Ml INHALATION 3 ml Q6HRT JIGNA Administration Apixaban 5 mg 10/14/24 12:00 10/15/24 08:26 Apixaban 5 Mg Tablet PO 5 mg Q12HR JIGNA Administration Aspirin 81 mg 10/10/24 09:00 10/15/24 08:26 Aspirin 81 Mg Enteric Tablet PO 81 mg DAILY JIGNA Administration Buspirone HCl 5 mg 10/12/24 11:30 10/15/24 08:27 Buspirone Hcl 5 Mg Tablet PO 5 mg Q12HR JIGNA Administration Dextrose 12.5 gm 10/09/24 20:02 Dextrose 50% 25 Gm/50 Ml Syringe IV PUSH PRN PRN Hypoglycemia Protocol Diltiazem HCl 120 mg 10/11/24 12:00 10/15/24 08:26 Diltiazem Hcl Cd 120 Mg Cap.24hr PO 120 mg QAM JIGNA Administration Escitalopram Oxalate 20 mg 10/10/24 09:00 10/15/24 08:27 Escitalopram Oxalate 10 Mg Tablet PO 20 mg DAILY JIGNA Administration Glucagon 1 mg 10/09/24 20:02 Glucagon For Inj 1 Mg Vial IM PRN PRN Hypoglycemia Protocol Glucose 15 gm 10/09/24 20:02 Glucose Oral Gel 15 Gm Of Glucse In 37.5 Gm Tube PO PRN PRN Hypoglycemia Protocol Hydromorphone HCl 0.5 mg 10/10/24 00:28 10/11/24 05:09 Hydromorphone Hcl Inj (*Crx) 2 Mg/Ml Vial IV PUSH 0.5 mg Q3H PRN Administration Pain Rated 7-10 Dextrose 1,000 mls @ 100 mls/hr 10/09/24 20:02 Dextrose 5% 1,000 Ml IVPB PRN PRN Hypoglycemia Protocol Albumin Human 50 mls @ 999 mls/hr 10/12/24 12:35 Albutein IVPB 11/11/24 12:34 Q10M PRN HYPOTENSION Insulin Aspart 2 - 5 units 10/10/24 00:00 10/15/24 17:42 Insulin Aspart (*Bkc) 100 Units/Ml SUB-Q Not Given Q6HR [facility] Protocol Levothyroxine Sodium 125 mcg 10/10/24 06:30 10/14/24 05:22 Levothyroxine Sodium 125 Mcg Tablet BY MOUTH 125 mcg Q48H JIGNA Administration Levothyroxine Sodium 150 mcg 10/11/24 06:30 10/15/24 08:26 Levothyroxine Sodium 150 Mcg Tablet PO 150 mcg Q48H JIGNA Administration Montelukast Sodium 10 mg 10/09/24 21:35 10/14/24 20:31 Montelukast Sodium 10 Mg Tablet BY MOUTH 10 mg QHS JIGNA Administration Radiology Results: ITS Impressions Abdomen/Pelvis CT 10/09/24 16:08 IMPRESSION: Trace pericardial effusion. Scattered calcified and noncalcified sub-6 mm pulmonary nodules, likely representing granulomas. Mild inflammatory change surrounding the pancreatic head and uncinate process, correlate for clinical findings of pancreatitis. Mild inflammatory stranding/edema in the proximal bile ducts, presumably related to the pancreatic process, noting that ascending cholangitis could appear similarly. Mild dilation of the third and fourth portions of the duodenum, presumably ileus related to the pancreatic process. Abdomen X-Ray 10/10/24 06:55 Impression: No acute abnormality is seen. Irregular markedly hyperdense opacity in the pelvis. Correlate for surgical/procedural history or traumatic history/foreign body. Renal Ultrasound 10/10/24 11:35 Impression: Unremarkable ultrasound of the kidneys and urinary bladder. Chest X-Ray 10/15/24 09:25 Impression: 1: Progression of bilateral airspace disease, right greater than left, consistent with edema. Labs Labs: Laboratory Tests 10/15/24 05:16 10/15/24 05:16 Calcium 8.6 Magnesium 2.1 Total Bilirubin 1.3 AST 100 H ALT 436 H Alkaline Phosphatase 473 H Total Protein 5.9 L Albumin 3.1 L Microbiology 10/09/24 17:06 Blood Blood Culture - Final 10/09/24 17:06 Blood Blood Culture - Final
--- NOTE | 2024-10-15 14:01 | P.PNIM_ITS ---
Progress Note: A&P Assessment and Plan (1) CHAD (acute kidney injury): Code(s): N17.9 - Acute kidney failure, unspecified Status: Acute Assessment and Plan: with fluid overload on dialysis Discussed with Dr Martin and plan is to hold dialysis from tomorrow and monitor renal function until weekend, to see if it recovers Cr today 4.68 from 6.11 monitor (2) Constipation: Code(s): K59.00 - Constipation, unspecified Status: Acute Assessment and Plan: Senna (3) Diabetes: Code(s): E11.9 - Type 2 diabetes mellitus without complications Status: Acute Assessment and Plan: Accu-Cheks q.6 SSI Hold home diabetes medications (4) Hypertension: Qualifiers: Hypertension type: unspecified Qualified Code(s): I10 - Essential (primary) hypertension Code(s): I10 - Essential (primary) hypertension Status: Chronic Assessment and Plan: home emds on hold as hypotensive (5) CHF (congestive heart failure): Code(s): I50.9 - Heart failure, unspecified Status: Acute Assessment and Plan: Last echo 2021 ejection fraction 55-60% cardiology on board (6) Atrial fibrillation with RVR: Code(s): I48.91 - Unspecified atrial fibrillation Status: Acute Assessment and Plan: new onset of afib Continue Cardizem 120mg and Eliquis 5mg bid po Plan Ischemic hepatitis AST/ALT 4607/3007, today 134/517 Bili 3.9 now 1.8 Hep B antibody negative GI following Bronchospasm On duoneb treatment Reports intermitted nausea today QTc 511- so ideally avoid medication that could prolong it DVT prophylaxis on Eliquis Subjective Date/time seen: 10/15/24 14:01 Interval history: Patient was evaluated the bedside. Patient underwent a ultrafiltration. Discussed with the Nephrology and Will decide patient needs a permanent dialysis by this weekend. Morning patient was breathing rapid but after the dialysis patient is resting comfortably. Exam Narrative: General: well appearing, appears stated age. HEENT: normocephalic, atraumatic. Mucous membranes moist. EOMI, PERRLA, bilateral sclera anicteric, no conjunctival injection. Neck supple without JVD, lymphadenopathy, or bruit. Respiratory: clear to ascultation bilaterally. No rales/rhonic/wheezes. Cardiovascular: normal S1-S2 upon ascultation. No murmurs, rubs, or clicks. PMI is nondisplaced, capillary refill less than 3 second. Abdomen: Soft, round, no pulsatile masses, nondistended and nontender. No rebound, no guarding. No CVA tenderness, no hepatosplenomegaly. Bowel sounds present Extremities: No cyanosis, clubbing, or edema present. Pulses are palpable 2/2. Active ROM to all four extremities. Neuro: Alert and orientated x 4. PERRLA. Cranial nerves 2-12 intact without focal deficit. Skin: Warm, dry, and intact, without rash, erythema, or lesion. Psych: pleasant, cooperative, normal speech, normal affect, no hallucinations, no dysarthia Const: General: comfortable Objective Data Vital Signs Vital Signs: Vital Signs - 24 hr 10/14/24 14:37 10/14/24 14:37 10/14/24 14:45 Temperature Pulse Rate 95 95 96 Respiratory Rate 20 20 20 Blood Pressure Pulse Oximetry 92 Oxygen Delivery Nasal Cannula Oxygen Flow Rate 2 10/14/24 16:00 10/14/24 16:00 10/14/24 19:52 Temperature 98.2 F 97.7 F Pulse Rate 98 87 90 Respiratory Rate 18 20 Blood Pressure 120/53 L 131/60 Pulse Oximetry 99 98 Oxygen Delivery Oxygen Flow Rate 10/14/24 19:55 10/14/24 20:00 10/14/24 20:05 Temperature Pulse Rate 93 91 95 Respiratory Rate 16 18 Blood Pressure Pulse Oximetry Oxygen Delivery Oxygen Flow Rate 10/14/24 23:58 10/15/24 00:00 10/15/24 00:15 Temperature 96.8 F L Pulse Rate 96 95 72 Respiratory Rate 20 16 Blood Pressure 141/75 H Pulse Oximetry 96 Oxygen Delivery Oxygen Flow Rate 10/15/24 00:22 10/15/24 04:00 10/15/24 04:00 Temperature 97.6 F Pulse Rate 70 107 H 109 H Respiratory Rate 16 24 H Blood Pressure 134/86 Pulse Oximetry 91 Oxygen Delivery Oxygen Flow Rate 10/15/24 04:30 10/15/24 07:57 10/15/24 07:57 Temperature Pulse Rate 74 74 Respiratory Rate 16 20 Blood Pressure Pulse Oximetry 91 90 Oxygen Delivery Nasal Cannula Nasal Cannula Oxygen Flow Rate 2 2 10/15/24 08:05 10/15/24 08:23 10/15/24 08:26 Temperature 97.4 F L Pulse Rate 76 102 H 102 H Respiratory Rate 16 24 H 24 H Blood Pressure 143/64 H Pulse Oximetry 92 92 Oxygen Delivery Nasal Cannula Oxygen Flow Rate 3 10/15/24 08:26 10/15/24 12:00 10/15/24 12:30 Temperature 97.2 F L Pulse Rate 102 H 193 H 102 H Respiratory Rate 20 Blood Pressure 162/76 H Pulse Oximetry 97 Oxygen Delivery Oxygen Flow Rate 10/15/24 12:30 10/15/24 12:38 10/15/24 12:45 Temperature Pulse Rate 100 94 Respiratory Rate Blood Pressure 164/80 H 168/88 H Pulse Oximetry Oxygen Delivery Oxygen Flow Rate 3 10/15/24 13:00 10/15/24 13:15 10/15/24 13:30 Temperature Pulse Rate 87 85 86 Respiratory Rate Blood Pressure 152/86 H 165/78 H 165/91 H Pulse Oximetry Oxygen Delivery Oxygen Flow Rate 10/15/24 13:45 Temperature Pulse Rate 82 Respiratory Rate Blood Pressure 155/79 H Pulse Oximetry Oxygen Delivery Oxygen Flow Rate Intake/Output Intake/Output: Intake & Output 10/12/24 10/13/24 10/14/24 10/15/24 23:59 23:59 23:59 23:59 Intake Total 836.8 1072.2 904.6 100 Output Total [address] [facility] -1663.2 -2227.8 -1095.4 100 Meds/Results Medications: Active Medications Generic Name Dose Route Start Last Admin Trade Name Freq PRN Reason Stop Dose Admin Acetaminophen 500 mg 10/10/24 23:07 10/14/24 20:32 Acetaminophen 500 Mg Tablet PO 500 mg Q6H PRN Administration Mild Pain (1-3) or Fever Albuterol/Ipratropium 3 ml 10/13/24 02:00 10/15/24 07:55 Ipratropium 0.5 Mg/Albuterol Sulfate 2.5 Mg Ampul.Neb 3 Ml INHALATION 3 ml Q6HRT JIGNA Administration Apixaban 5 mg 10/14/24 12:00 10/15/24 08:26 Apixaban 5 Mg Tablet PO 5 mg Q12HR JIGNA Administration Aspirin 81 mg 10/10/24 09:00 10/15/24 08:26 Aspirin 81 Mg Enteric Tablet PO 81 mg DAILY JIGNA Administration Buspirone HCl 5 mg 10/12/24 11:30 10/15/24 08:27 Buspirone Hcl 5 Mg Tablet PO 5 mg Q12HR JIGNA Administration Dextrose 12.5 gm 10/09/24 20:02 Dextrose 50% 25 Gm/50 Ml Syringe IV PUSH PRN PRN Hypoglycemia Protocol Diltiazem HCl 120 mg 10/11/24 12:00 10/15/24 08:26 Diltiazem Hcl Cd 120 Mg Cap.24hr PO 120 mg QAM JIGNA Administration Escitalopram Oxalate 20 mg 10/10/24 09:00 10/15/24 08:27 Escitalopram Oxalate 10 Mg Tablet PO 20 mg DAILY JIGNA Administration Glucagon 1 mg 10/09/24 20:02 Glucagon For Inj 1 Mg Vial IM PRN PRN Hypoglycemia Protocol Glucose 15 gm 10/09/24 20:02 Glucose Oral Gel 15 Gm Of Glucse In 37.5 Gm Tube PO PRN PRN Hypoglycemia Protocol Hydromorphone HCl 0.5 mg 10/10/24 00:28 10/11/24 05:09 Hydromorphone Hcl Inj (*Crx) 2 Mg/Ml Vial IV PUSH 0.5 mg Q3H PRN Administration Pain Rated 7-10 Dextrose 1,000 mls @ 100 mls/hr 10/09/24 20:02 Dextrose 5% 1,000 Ml IVPB PRN PRN Hypoglycemia Protocol Albumin Human 50 mls @ 999 mls/hr 10/12/24 12:35 Albutein IVPB 11/11/24 12:34 Q10M PRN HYPOTENSION Insulin Aspart 2 - 5 units 10/10/24 00:00 10/15/24 12:15 Insulin Aspart (*Bkc) 100 Units/Ml SUB-Q Not Given Q6HR [facility] Protocol Levothyroxine Sodium 125 mcg 10/10/24 06:30 10/14/24 05:22 Levothyroxine Sodium 125 Mcg Tablet BY MOUTH 125 mcg Q48H JIGNA Administration Levothyroxine Sodium 150 mcg 10/11/24 06:30 10/15/24 08:26 Levothyroxine Sodium 150 Mcg Tablet PO 150 mcg Q48H JIGNA Administration Montelukast Sodium 10 mg 10/09/24 21:35 10/14/24 20:31 Montelukast Sodium 10 Mg Tablet BY MOUTH 10 mg QHS JIGNA Administration Radiology Results: ITS Impressions Abdomen/Pelvis CT 10/09/24 16:08 IMPRESSION: Trace pericardial effusion. Scattered calcified and noncalcified sub-6 mm pulmonary nodules, likely representing granulomas. Mild inflammatory change surrounding the pancreatic head and uncinate process, correlate for clinical findings of pancreatitis. Mild inflammatory stranding/edema in the proximal bile ducts, presumably related to the pancreatic process, noting that ascending cholangitis could appear similarly. Mild dilation of the third and fourth portions of the duodenum, presumably ileus related to the pancreatic process. Abdomen X-Ray 10/10/24 06:55 Impression: No acute abnormality is seen. Irregular markedly hyperdense opacity in the pelvis. Correlate for surgical/procedural history or traumatic history/foreign body. Renal Ultrasound 10/10/24 11:35 Impression: Unremarkable ultrasound of the kidneys and urinary bladder. Chest X-Ray 10/15/24 09:25 Impression: 1: Progression of bilateral airspace disease, right greater than left, consistent with edema. Labs Labs: Laboratory Results - last 24 hr 10/14/24 10/14/24 10/15/24 18:03 23:01 05:10 WBC RBC Hgb Hct MCV MCH MCHC RDW Plt Count MPV Immature Gran % (Auto) Neut % (Auto) Lymph % (Auto) [place] % (Auto) Eos % (Auto) Baso % (Auto) Lymph # (Auto) [place] # (Auto) Eos # (Auto) Baso # (Auto) Abs Immat Gran (auto) Absolute Neuts (auto) Absolute Nucleated RBC Nucleated RBC % Puncture Site ABG pH ABG pCO2 ABG pO2 ABG PO2/FiO2 Ratio ABG HCO3 ABG O2 Saturation ABG O2 Content ABG Base Excess A-a Gradient Oxyhemoglobin Total Hemoglobin O2 Delivery Device O2 Liters/Min FiO2 Sodium Potassium Chloride Carbon Dioxide Anion Gap BUN Creatinine Estim Creat Clear Calc Estimated GFR Glucose POC Capillary Glucose 103 117 H Calcium Magnesium Total Bilirubin AST ALT Alkaline Phosphatase NT-Pro-B Natriuret Pep > 86487 H Total Protein Albumin 10/15/24 10/15/24 10/15/24 05:16 05:41 08:50 WBC 11.7 H RBC 3.86 L Hgb 10.7 L Hct 33.6 L MCV 87.0 MCH 27.7 MCHC 31.8 L RDW 16.5 H Plt Count 200 MPV 10.1 Immature Gran % (Auto) 1.5 H Neut % (Auto) 73.5 H Lymph % (Auto) 11.0 L [place] % (Auto) 12.6 H Eos % (Auto) 0.7 Baso % (Auto) 0.7 Lymph # (Auto) 1.29 [place] # (Auto) 1.5 H Eos # (Auto) 0.1 Baso # (Auto) 0.1 Abs Immat Gran (auto) 0.18 H Absolute Neuts (auto) 8.6 H Absolute Nucleated RBC 0.000 Nucleated RBC % 0.0 Puncture Site Left radial ABG pH 7.392 ABG pCO2 37.6 ABG pO2 64.8 L ABG PO2/FiO2 Ratio 2.03 ABG HCO3 22.4 ABG O2 Saturation 92.7 L ABG O2 Content 14.4 L ABG Base Excess -2.2 A-a Gradient 119.4 Oxyhemoglobin 91.9 Total Hemoglobin 11.1 L O2 Delivery Device Nasal cannula O2 Liters/Min 3.0 FiO2 32 Sodium 132 L Potassium 4.1 Chloride 102 Carbon Dioxide 23 Anion Gap 7 BUN 17 Creatinine 3.70 H Estim Creat Clear Calc 11 Estimated GFR 12 L Glucose 125 H POC Capillary Glucose 115 H Calcium 8.6 Magnesium 2.1 Total Bilirubin 1.3 AST 100 H ALT 436 H Alkaline Phosphatase 473 H NT-Pro-B Natriuret Pep Total Protein 5.9 L Albumin 3.1 L 10/15/24 12:10 WBC RBC Hgb Hct MCV MCH MCHC RDW Plt Count MPV Immature Gran % (Auto) Neut % (Auto) Lymph % (Auto) [place] % (Auto) Eos % (Auto) Baso % (Auto) Lymph # (Auto) [place] # (Auto) Eos # (Auto) Baso # (Auto) Abs Immat Gran (auto) Absolute Neuts (auto) Absolute Nucleated RBC Nucleated RBC % Puncture Site ABG pH ABG pCO2 ABG pO2 ABG PO2/FiO2 Ratio ABG HCO3 ABG O2 Saturation ABG O2 Content ABG Base Excess A-a Gradient Oxyhemoglobin Total Hemoglobin O2 Delivery Device O2 Liters/Min FiO2 Sodium Potassium Chloride Carbon Dioxide Anion Gap BUN Creatinine Estim Creat Clear Calc Estimated GFR Glucose POC Capillary Glucose 101 Calcium Magnesium Total Bilirubin AST ALT Alkaline Phosphatase NT-Pro-B Natriuret Pep Total Protein Albumin Hospitalist MIPS Advance Care Plan I have confirmed that the patient's Advanced Care Plan is present, code status is documented, or surrogate decision maker is listed in patient medical record.: Yes Medication Reconciliation I have utilized all available resources to obtain, update and review the patients current medications (includes all prescriptions, OTC, herbals, cannabis, and nutritional supplements).: Yes
--- NOTE | 2024-10-15 14:45 | PCPTNOTE ---
The patient treatment was not able to be completed on 10/15/2024 due to patient out of the room for dialysis. Will plan to continue treatment per plan of care.
[2024-10-15] MEDS: PROCHLORPERAZINE EDISYLATE 10 MG/2 ML VIAL IV PUSH (16:33)
[2024-10-15 17:35] LABS: Glucose Point of Care 110 mg/dl (65-105)
[2024-10-16] VITALS (37 sets, daily range): BP systolic 100–156; BP diastolic 32–82; PULSE 67–101; RESP 16–20; TEMP 36.3–37; O2SAT 94–100
[2024-10-16 00:13] LABS: Glucose Point of Care 92 mg/dl (65-105)
[2024-10-16] MEDS: IPRATROPIUM 0.5 MG/ALBUTEROL SULFATE 2.5 MG AMPUL.NEB 3 ML INHALATION ×3 (02:20→19:55)
[2024-10-16 04:19] LABS: Glucose Point of Care 96 mg/dl (65-105)
[2024-10-16 05:54] LABS: Hematocrit 28.9 % (37.0-47.0); Hemoglobin 9.2 g/dL (12.0-15.0); Mean Corpuscular HGB Conc 31.8 g/dl (32-36); Mean Corpuscular Volume 88.1 fl (80-100); Mean Platelet Volume 10.2 fl (7.4-10.4); Platelet Count Result 202 k/mm3 (150-375); Red Blood Count 3.28 M/mm3 (4.2-5.4); Red Cell Distribution Width 16.9 % (11.5-14.5); White Blood Count 9.5 K/mm3 (4.5-10.0)
[2024-10-16] MEDS: LEVOTHYROXINE SODIUM 125 MCG TABLET BY MOUTH (06:02)
[2024-10-16 06:14] LABS: Alanine Aminotransferase 259 U/L (6-35); Albumin Level 2.7 g/dL (3.5-5.1); Alkaline Phosphatase 390 U/L (38-126); Anion Gap 9 mmol/L (4-12); Aspartate Amino Transferase 57 U/L (14-36); Blood Urea Nitrogen 37 mg/dL (7-17); Calcium 8.1 mg/dL (8.4-10.2); Carbon Dioxide 18 mmol/L (22-30); Chloride 103 mmol/L (98-107); Estimated CRCL calculation 9 ml/min; Estimated Glomerular Filt Rate 9; Glucose 96 mg/dL (65-110); Potassium 4.2 mmol/L (3.4-5.0); Sodium 130 mmol/L (137-145); Total Protein 5.2 g/dL (6.3-8.2)
[2024-10-16] MEDS: ESCITALOPRAM OXALATE 10 MG TABLET 20 MG PO (08:38)
[2024-10-16] MEDS: busPIRone HCL 5 MG TABLET PO ×2 (08:38→21:08)
[2024-10-16] MEDS: ACETAMINOPHEN 500 MG TABLET PO ×2 (08:40→17:57)
--- NOTE | 2024-10-16 09:05 | PC.NURSE ---
To dialysis via bed. Family at bedside.
--- NOTE | 2024-10-16 11:05 | P.PNNP_ITS ---
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 on [employer] TECHNICIAN/dialysis due to volume overload unresponsive to diuretic therapy * no critical electrolytes but issues with hyponatremia noted * fluid removal with HD as tolerated * follow respiratory status * HD on 10/12, 10/13, and 10/14 * HD today * follow trend of repeat labs and UOP (2) Acute hypoxic respiratory failure: Code(s): J96.01 - Acute respiratory failure with hypoxia Status: Chronic Assessment and Plan: * felt more related to renal failure than overt CHF * imaging with evidence of pulmonary edema * ongoing fluid removal with HD as tolerated * monitor respiratory status * given CXR findings and tachypnea on 10/15, s/p DUF for further fluid removal * CT of chest ordered given for further evaluation * wean supplemental oxygen as tolerated (3) CHF (congestive heart failure): Code(s): I50.9 - Heart failure, unspecified Status: Acute Assessment and Plan: * recent Echo noted: * left ventricle is normal in size and systolic function * left ventricular ejection fraction is visually estimated to be 60-65% * paradoxical septal wall motion abnormality suggestive of bundle-branch block * right ventricle is normal in size and systolic function * no significant valvular abnormalities. * suspect volume overload/pulmonary edema/pleural effusion secondary to renal failure than CHF * failed trial of diuretic therapy * ongoing fluid removal with HD to acheive euvolemia (4) Atrial fibrillation with RVR: Code(s): I48.91 - Unspecified atrial fibrillation Status: Acute Assessment and Plan: * Cardiology recommendations noted * diltiazem for rate control * on anticoagulation (5) Anemia: Code(s): D64.9 - Anemia, unspecified Status: Acute Assessment and Plan: * related to CHAD and acute illness * Epogen with HD * follow trend of H/H (6) Elevated liver enzymes: Code(s): R74.8 - Abnormal levels of other serum enzymes Status: Acute Assessment and Plan: * as noted on admission * slow improvement noted * thought to be related to altered hemodynamics/previous hypotension * GI following (7) Hypertension: Qualifiers: Hypertension type: unspecified Qualified Code(s): I10 - Essential (primary) hypertension Code(s): I10 - Essential (primary) hypertension Status: Chronic Assessment and Plan: * clinically better at this time * back on diltiazem (more so for rate control) * follow trend of hemodynamics (8) Diabetes: Code(s): E11.9 - Type 2 diabetes mellitus without complications Status: Acute Assessment and Plan: * follow accu-checks * glycemic control per hospitalist Will continue to follow. L Subjective Date/time seen: 10/16/24 11:05 Interval history: Follow-up acute kidney injury/acute renal failure (no requiring [employer] W[employer] TECHNICIAN/hemodialysis). Tolerated dialysis treatment at the time of my visit (seen on HD at 10:55AM); tolerated dry ultrafiltration session yesterday afternoon as well; breathing seems better but continues to have on/off nausea and generalized fatigue; still not making much urine output and BUN/creatinine rise inbetween dialysis treatments. Exam 2 Narrative: General: elderly and mildly ill-appearing female in NAD Heart: normal S1 and S2; no rub Lungs: coarse and decreased/diminished at bases Abdomen: soft, nontender, nondistended, positive bowel sounds Extremities: no cyanosis or clubbing; no edema Skin: warm and intact Objective Data Vital Signs Vital Signs: Vital Signs Temp Pulse Resp BP Pulse Ox O2 Del Method O2 Flow Rate 10/16/24 11:00 87 124/69 10/16/24 10:45 87 146/74 H 10/16/24 10:30 92 144/76 H 10/16/24 10:15 89 145/75 H 10/16/24 10:00 89 152/72 H 10/16/24 09:45 90 133/68 10/16/24 09:30 89 146/76 H 10/16/24 09:18 88 146/73 H 10/16/24 09:12 97.8 F 88 20 143/72 H 10/16/24 09:12 3 10/16/24 08:40 20 95 Nasal Cannula 2 10/16/24 08:16 84 20 10/16/24 08:02 90 10/16/24 08:01 81 18 06/14/25 08:01 95 Nasal Cannula 2 10/16/24 08:00 97.4 F L 89 20 146/63 H 100 10/16/24 04:00 84 10/16/24 04:00 97.8 F 89 18 156/82 H 96 10/16/24 02:40 89 18 10/16/24 02:30 87 18 10/16/24 00:00 97.6 F 95 18 144/74 H 94 10/16/24 00:00 96 10/15/24 20:49 101 H 98 Nasal Cannula 3 10/15/24 20:41 92 18 10/15/24 20:30 101 H 18 10/15/24 20:00 98 Nasal Cannula 3 10/15/24 20:00 116 H 10/15/24 20:00 97.4 F L 93 16 143/72 H 98 10/15/24 16:00 98.3 F 72 20 134/62 98 10/15/24 16:00 92 Intake/Output Intake/Output: Intake & Output 10/13/24 10/14/24 10/15/24 10/16/24 23:59 23:59 23:59 23:59 Intake Total 1072.2 904.6 340 220 Output Total 3300 2000 3000 3000 [facility]2227.8 -1095.4 -2660 -2780 Meds/Results Medications: Active Medications Generic Name Dose Route Start Last Admin Trade Name Freq PRN Reason Stop Dose Admin Acetaminophen 500 mg 10/10/24 23:07 10/16/24 08:40 Acetaminophen 500 Mg Tablet PO 500 mg Q6H PRN Administration Mild Pain (1-3) or Fever Albuterol/Ipratropium 3 ml 10/13/24 02:00 10/16/24 07:58 Ipratropium 0.5 Mg/Albuterol Sulfate 2.5 Mg Ampul.Neb 3 Ml INHALATION 3 ml Q6HRT JIGNA Administration Apixaban 5 mg 10/14/24 12:00 10/16/24 13:58 Apixaban 5 Mg Tablet PO 5 mg Q12HR JIGNA Administration Aspirin 81 mg 10/10/24 09:00 10/16/24 13:58 Aspirin 81 Mg Enteric Tablet PO 81 mg DAILY JIGNA Administration Buspirone HCl 5 mg 10/12/24 11:30 10/16/24 08:38 Buspirone Hcl 5 Mg Tablet PO 5 mg Q12HR JIGNA Administration Dextrose 12.5 gm 10/09/24 20:02 Dextrose 50% 25 Gm/50 Ml Syringe IV PUSH PRN PRN Hypoglycemia Protocol Diltiazem HCl 120 mg 10/11/24 12:00 10/16/24 14:05 Diltiazem Hcl Cd 120 Mg Cap.24hr PO 120 mg QAM JIGNA Administration Epoetin August-epbx 10,000 units 10/16/24 18:45 10/16/24 13:02 Epoetin August-Epbx 10,000 Units/Ml Vial IV PUSH 10/16/24 18:46 10,000 units ONCE ONE Administration Escitalopram Oxalate 20 mg 10/10/24 09:00 10/16/24 08:38 Escitalopram Oxalate 10 Mg Tablet PO 20 mg DAILY JIGNA Administration Glucagon 1 mg 10/09/24 20:02 Glucagon For Inj 1 Mg Vial IM PRN PRN Hypoglycemia Protocol Glucose 15 gm 10/09/24 20:02 Glucose Oral Gel 15 Gm Of Glucse In 37.5 Gm Tube PO PRN PRN Hypoglycemia Protocol Hydromorphone HCl 0.5 mg 10/10/24 00:28 10/11/24 05:09 Hydromorphone Hcl Inj (*Crx) 2 Mg/Ml Vial IV PUSH 0.5 mg Q3H PRN Administration Pain Rated 7-10 Dextrose 1,000 mls @ 100 mls/hr 10/09/24 20:02 Dextrose 5% 1,000 Ml IVPB PRN PRN Hypoglycemia Protocol Albumin Human 50 mls @ 999 mls/hr 10/12/24 12:35 Albutein IVPB 11/11/24 12:34 Q10M PRN HYPOTENSION Insulin Aspart 2 - 5 units 10/10/24 00:00 10/16/24 14:07 Insulin Aspart (*Bkc) 100 Units/Ml SUB-Q Not Given Q6HR JIGNA Protocol Levothyroxine Sodium 125 mcg 10/10/24 06:30 10/16/24 06:02 Levothyroxine Sodium 125 Mcg Tablet BY MOUTH 125 mcg Q48H JIGNA Administration Levothyroxine Sodium 150 mcg 10/11/24 06:30 10/15/24 08:26 Levothyroxine Sodium 150 Mcg Tablet PO 150 mcg Q48H JIGNA Administration Montelukast Sodium 10 mg 10/09/24 21:35 10/15/24 23:51 Montelukast Sodium 10 Mg Tablet BY MOUTH Not Given QHS [facility] Radiology Results: ITS Impressions Abdomen/Pelvis CT 10/09/24 16:08 IMPRESSION: Trace pericardial effusion. Scattered calcified and noncalcified sub-6 mm pulmonary nodules, likely representing granulomas. Mild inflammatory change surrounding the pancreatic head and uncinate process, correlate for clinical findings of pancreatitis. Mild inflammatory stranding/edema in the proximal bile ducts, presumably related to the pancreatic process, noting that ascending cholangitis could appear similarly. Mild dilation of the third and fourth portions of the duodenum, presumably ileus related to the pancreatic process. Abdomen X-Ray 10/10/24 06:55 Impression: No acute abnormality is seen. Irregular markedly hyperdense opacity in the pelvis. Correlate for surgical/procedural history or traumatic history/foreign body. Renal Ultrasound 10/10/24 11:35 Impression: Unremarkable ultrasound of the kidneys and urinary bladder. Chest X-Ray 10/16/24 11:13 Impression: 1: Improved asymmetric right-sided airspace disease which may represent asymmetric edema or pneumonia. Labs Labs: Laboratory Tests 10/16/24 05:49 10/16/24 05:49 Calcium 8.1 L Total Bilirubin 1.0 AST 57 H ALT 259 H Alkaline Phosphatase 390 H Total Protein 5.2 L Albumin 2.7 L
[2024-10-16] MEDS: PROCHLORPERAZINE EDISYLATE 10 MG/2 ML VIAL IV PUSH ×2 (11:26→17:59)
[2024-10-16] MEDS: EPOETIN ALFA-EPBX 10,000 UNITS/ML VIAL 10000 UNITS IV PUSH (13:02)
[2024-10-16] MEDS: SODIUM CHLORIDE 0.9% IV 1,000 ML 999 ML IV CONT (13:05)
--- NOTE | 2024-10-16 13:45 | PC.NURSE ---
Returned from dialysis via bed. Family at bedside.
[2024-10-16] MEDS: ASPIRIN 81 MG ENTERIC TABLET PO (13:58)
[2024-10-16] MEDS: APIXABAN 5 MG TABLET PO ×2 (13:58→21:08)
[2024-10-16] MEDS: dilTIAZem HCL CD 120 MG CAP.24HR PO (14:05)
[2024-10-16 14:06] LABS: Glucose Point of Care 94 mg/dl (65-105)
--- NOTE | 2024-10-16 14:32 | PCPTNOTE ---
Pt declined PT, just got into the room from dialysis and going for CT scan soon. Will cont per POC
--- NOTE | 2024-10-16 16:31 | P.PNIM_ITS ---
Progress Note: A&P Assessment and Plan (1) CHAD (acute kidney injury): Code(s): N17.9 - Acute kidney failure, unspecified Status: Acute Assessment and Plan: with fluid overload on dialysis Discussed with Dr Martin and plan is to decide for permanent dialysis this weekend Trend creatinine monitor (2) Constipation: Code(s): K59.00 - Constipation, unspecified Status: Acute Assessment and Plan: Senna (3) Diabetes: Code(s): E11.9 - Type 2 diabetes mellitus without complications Status: Acute Assessment and Plan: Accu-Cheks q.6 SSI Hold home diabetes medications (4) Hypertension: Qualifiers: Hypertension type: unspecified Qualified Code(s): I10 - Essential (primary) hypertension Code(s): I10 - Essential (primary) hypertension Status: Chronic Assessment and Plan: home emds on hold as hypotensive (5) CHF (congestive heart failure): Code(s): I50.9 - Heart failure, unspecified Status: Acute Assessment and Plan: Last echo 2021 ejection fraction 55-60% cardiology on board (6) Atrial fibrillation with RVR: Code(s): I48.91 - Unspecified atrial fibrillation Status: Acute Assessment and Plan: new onset of afib Continue Cardizem 120mg and Eliquis 5mg bid po Plan Ischemic hepatitis AST/ALT 4607/3007, today 134/517 Bili 3.9 now 1.8 Hep B antibody negative GI following Bronchospasm On duoneb treatment Reports intermitted nausea today QTc 511- so ideally avoid medication that could prolong it DVT prophylaxis on Eliquis Subjective Date/time seen: 10/16/24 16:31 Interval history: Patient underwent dialysis today. Patient feels not well and reports that she is feeling tired Review of Systems Review of Systems: 12 systems were reviewed and are negativ e except for as per HPI. Exam Narrative: General: well appearing, appears stated age. HEENT: normocephalic, atraumatic. Mucous membranes moist. EOMI, PERRLA, bilateral sclera anicteric, no conjunctival injection. Neck supple without JVD, lymphadenopathy, or bruit. Respiratory: clear to ascultation bilaterally. No rales/rhonic/wheezes. Cardiovascular: normal S1-S2 upon ascultation. No murmurs, rubs, or clicks. PMI is nondisplaced, capillary refill less than 3 second. Abdomen: Soft, round, no pulsatile masses, nondistended and nontender. No rebound, no guarding. No CVA tenderness, no hepatosplenomegaly. Bowel sounds present Extremities: No cyanosis, clubbing, or edema present. Pulses are palpable 2/2. Active ROM to all four extremities. Neuro: Alert and orientated x 4. PERRLA. Cranial nerves 2-12 intact without focal deficit. Skin: Warm, dry, and intact, without rash, erythema, or lesion. Psych: pleasant, cooperative, normal speech, normal affect, no hallucinations, no dysarthia Const: General: comfortable Objective Data Vital Signs Vital Signs: Vital Signs - 24 hr 10/15/24 20:00 10/15/24 20:00 10/15/24 20:00 Temperature 97.4 F L Pulse Rate 93 116 H Respiratory Rate 16 Blood Pressure 143/72 H Pulse Oximetry 98 98 Oxygen Delivery Nasal Cannula Oxygen Flow Rate 3 10/15/24 20:30 10/15/24 20:41 10/15/24 20:49 Temperature Pulse Rate 101 H 92 101 H Respiratory Rate 18 18 Blood Pressure Pulse Oximetry 98 Oxygen Delivery Nasal Cannula Oxygen Flow Rate 3 10/16/24 00:00 10/16/24 00:00 10/16/24 02:30 Temperature 97.6 F Pulse Rate 96 95 87 Respiratory Rate 18 18 Blood Pressure 144/74 H Pulse Oximetry 94 Oxygen Delivery Oxygen Flow Rate 10/16/24 02:40 10/16/24 04:00 10/16/24 04:00 Temperature 97.8 F Pulse Rate 89 89 84 Respiratory Rate 18 18 Blood Pressure 156/82 H Pulse Oximetry 96 Oxygen Delivery Oxygen Flow Rate 10/16/24 08:00 10/16/24 08:01 10/16/24 08:01 Temperature 97.4 F L Pulse Rate 89 81 Respiratory Rate 20 18 Blood Pressure 146/63 H Pulse Oximetry 100 95 Oxygen Delivery Nasal Cannula Oxygen Flow Rate 2 06/14/25 08:02 10/16/24 08:16 10/16/24 08:40 Temperature Pulse Rate 90 84 Respiratory Rate 20 20 Blood Pressure Pulse Oximetry 95 Oxygen Delivery Nasal Cannula Oxygen Flow Rate 2 10/16/24 09:12 10/16/24 09:12 10/16/24 09:18 Temperature 97.8 F Pulse Rate 88 88 Respiratory Rate 20 Blood Pressure 143/72 H 146/73 H Pulse Oximetry Oxygen Delivery Oxygen Flow Rate 3 10/16/24 09:30 10/16/24 09:45 10/16/24 10:00 Temperature Pulse Rate 89 90 89 Respiratory Rate Blood Pressure 146/76 H 133/68 152/72 H Pulse Oximetry Oxygen Delivery Oxygen Flow Rate 10/16/24 10:15 10/16/24 10:30 10/16/24 10:45 Temperature Pulse Rate 89 92 87 Respiratory Rate Blood Pressure 145/75 H 144/76 H 146/74 H Pulse Oximetry Oxygen Delivery Oxygen Flow Rate 10/16/24 11:00 10/16/24 11:15 10/16/24 11:30 Temperature Pulse Rate 87 89 88 Respiratory Rate Blood Pressure 124/69 152/71 H 115/60 Pulse Oximetry Oxygen Delivery Oxygen Flow Rate 10/16/24 11:45 10/16/24 12:00 10/16/24 12:02 Temperature Pulse Rate 93 89 95 Respiratory Rate Blood Pressure 136/78 139/72 Pulse Oximetry Oxygen Delivery Oxygen Flow Rate 10/16/24 12:15 10/16/24 12:30 10/16/24 12:45 Temperature Pulse Rate 96 95 101 H Respiratory Rate Blood Pressure 146/80 H 131/72 134/74 Pulse Oximetry Oxygen Delivery Oxygen Flow Rate 10/16/24 13:00 10/16/24 13:14 10/16/24 13:20 Temperature 97.5 F L Pulse Rate 67 101 H 94 Respiratory Rate 18 Blood Pressure 108/71 100/62 123/63 Pulse Oximetry Oxygen Delivery Oxygen Flow Rate 10/16/24 14:15 10/16/24 14:19 Temperature Pulse Rate 88 84 Respiratory Rate 20 20 Blood Pressure Pulse Oximetry Oxygen Delivery Oxygen Flow Rate Intake/Output Intake/Output: Intake & Output 10/13/24 10/14/24 10/15/24 10/16/24 23:59 23:59 23:59 23:59 Intake Total 1072.2 904.6 340 220 Output Total 3300 2000 3000 3000 [facility]2227.8 -1095.4 -7910 -2420 Meds/Results Medications: Active Medications Generic Name Dose Route Start Last Admin Trade Name Freq PRN Reason Stop Dose Admin Acetaminophen 500 mg 10/10/24 23:07 10/16/24 08:40 Acetaminophen 500 Mg Tablet PO 500 mg Q6H PRN Administration Mild Pain (1-3) or Fever Albuterol/Ipratropium 3 ml 10/13/24 02:00 10/16/24 07:58 Ipratropium 0.5 Mg/Albuterol Sulfate 2.5 Mg Ampul.Neb 3 Ml INHALATION 3 ml Q6HRT JIGNA Administration Apixaban 5 mg 10/14/24 12:00 10/16/24 13:58 Apixaban 5 Mg Tablet PO 5 mg Q12HR JIGNA Administration Aspirin 81 mg 10/10/24 09:00 10/16/24 13:58 Aspirin 81 Mg Enteric Tablet PO 81 mg DAILY JIGNA Administration Buspirone HCl 5 mg 10/12/24 11:30 10/16/24 08:38 Buspirone Hcl 5 Mg Tablet PO 5 mg Q12HR JIGNA Administration Dextrose 12.5 gm 10/09/24 20:02 Dextrose 50% 25 Gm/50 Ml Syringe IV PUSH PRN PRN Hypoglycemia Protocol Diltiazem HCl 120 mg 10/11/24 12:00 10/16/24 14:05 Diltiazem Hcl Cd 120 Mg Cap.24hr PO 120 mg QAM JIGNA Administration Epoetin August-epbx 10,000 units 10/16/24 18:45 10/16/24 13:02 Epoetin August-Epbx 10,000 Units/Ml Vial IV PUSH 10/16/24 18:46 10,000 units ONCE ONE Administration Escitalopram Oxalate 20 mg 10/10/24 09:00 10/16/24 08:38 Escitalopram Oxalate 10 Mg Tablet PO 20 mg DAILY JIGNA Administration Glucagon 1 mg 10/09/24 20:02 Glucagon For Inj 1 Mg Vial IM PRN PRN Hypoglycemia Protocol Glucose 15 gm 10/09/24 20:02 Glucose Oral Gel 15 Gm Of Glucse In 37.5 Gm Tube PO PRN PRN Hypoglycemia Protocol Hydromorphone HCl 0.5 mg 10/10/24 00:28 10/11/24 05:09 Hydromorphone Hcl Inj (*Crx) 2 Mg/Ml Vial IV PUSH 0.5 mg Q3H PRN Administration Pain Rated 7-10 Dextrose 1,000 mls @ 100 mls/hr 10/09/24 20:02 Dextrose 5% 1,000 Ml IVPB PRN PRN Hypoglycemia Protocol Albumin Human 50 mls @ 999 mls/hr 10/12/24 12:35 Albutein IVPB 11/11/24 12:34 Q10M PRN HYPOTENSION Insulin Aspart 2 - 5 units 10/10/24 00:00 10/16/24 14:07 Insulin Aspart (*Bkc) 100 Units/Ml SUB-Q Not Given Q6HR JIGNA Protocol Levothyroxine Sodium 125 mcg 10/10/24 06:30 10/16/24 06:02 Levothyroxine Sodium 125 Mcg Tablet BY MOUTH 125 mcg Q48H JIGNA Administration Levothyroxine Sodium 150 mcg 10/11/24 06:30 10/15/24 08:26 Levothyroxine Sodium 150 Mcg Tablet PO 150 mcg Q48H JIGNA Administration Montelukast Sodium 10 mg 10/09/24 21:35 10/15/24 23:51 Montelukast Sodium 10 Mg Tablet BY MOUTH Not Given QHS J[facility] Radiology Results: ITS Impressions Abdomen/Pelvis CT 10/09/24 16:08 IMPRESSION: Trace pericardial effusion. Scattered calcified and noncalcified sub-6 mm pulmonary nodules, likely representing granulomas. Mild inflammatory change surrounding the pancreatic head and uncinate process, correlate for clinical findings of pancreatitis. Mild inflammatory stranding/edema in the proximal bile ducts, presumably related to the pancreatic process, noting that ascending cholangitis could appear similarly. Mild dilation of the third and fourth portions of the duodenum, presumably ileus related to the pancreatic process. Abdomen X-Ray 10/10/24 06:55 Impression: No acute abnormality is seen. Irregular markedly hyperdense opacity in the pelvis. Correlate for surgical/procedural history or traumatic history/foreign body. Renal Ultrasound 10/10/24 11:35 Impression: Unremarkable ultrasound of the kidneys and urinary bladder. Chest X-Ray 10/16/24 11:13 Impression: 1: Improved asymmetric right-sided airspace disease which may represent asymmetric edema or pneumonia. Chest CT 10/16/24 15:48 IMPRESSION: Large right and moderate left-sided pleural effusions with adjacent compressive atelectasis. Findings within the right middle and upper lobes suggesting asymmetric pulmonary edema. Small pericardial effusion. Labs Labs: Laboratory Results - last 24 hr 10/15/24 10/16/24 10/16/24 17:32 00:09 04:14 WBC RBC Hgb Hct MCV MCH MCHC RDW Plt Count MPV Sodium Potassium Chloride Carbon Dioxide Anion Gap BUN Creatinine Estim Creat Clear Calc Estimated GFR Glucose POC Capillary Glucose 110 H 92 96 Calcium Total Bilirubin AST ALT Alkaline Phosphatase Total Protein Albumin 10/16/24 10/16/24 05:49 14:03 WBC 9.5 RBC 3.28 L Hgb 9.2 L Hct 28.9 L MCV 88.1 MCH 28.0 MCHC 31.8 L RDW 16.9 H Plt Count 202 MPV 10.2 Sodium 130 L Potassium 4.2 Chloride 103 Carbon Dioxide 18 L Anion Gap 9 BUN 37 H D Creatinine 4.76 H Estim Creat Clear Calc 9 Estimated GFR 9 L Glucose 96 POC Capillary Glucose 94 Calcium 8.1 L Total Bilirubin 1.0 AST 57 H ALT 259 H Alkaline Phosphatase 390 H Total Protein 5.2 L Albumin 2.7 L Hospitalist MIPS Advance Care Plan I have confirmed that the patient's Advanced Care Plan is present, code status is documented, or surrogate decision maker is listed in patient medical record.: Yes Medication Reconciliation I have utilized all available resources to obtain, update and review the patients current medications (includes all prescriptions, OTC, herbals, cannabis, and nutritional supplements).: Yes
[2024-10-16 17:22] LABS: Glucose Point of Care 136 mg/dl (65-105)
[2024-10-16] MEDS: MONTELUKAST SODIUM 10 MG TABLET BY MOUTH (21:08)
[2024-10-16 21:43] LABS: Glucose Point of Care 119 mg/dl (65-105)
[2024-10-16] MEDS: HYDROmorphone HCL INJ (*CRX) 2 MG/ML VIAL 0.5 MG IV PUSH (22:34)
[2024-10-16] MEDS: PROCHLORPERAZINE MALEATE 5 MG TABLET PO (23:00)
[2024-10-17] VITALS (18 sets, daily range): BP systolic 109–146; BP diastolic 48–85; PULSE 83–96; RESP 14–22; TEMP 36.1–36.9; O2SAT 93–100
[2024-10-17 00:13] LABS: Glucose Point of Care 107 mg/dl (65-105)
--- NOTE | 2024-10-17 01:39 | PCRCNOTE ---
Patient was asleep for 0200 breathing tx and did not want to be woken. See next scheduled tx.
[2024-10-17] MEDS: ACETAMINOPHEN 500 MG TABLET PO ×2 (03:44→22:44)
[2024-10-17 04:52] LABS: Hematocrit 23.6 % (37.0-47.0); Hemoglobin 7.6 g/dL (12.0-15.0); Mean Corpuscular HGB Conc 32.2 g/dl (32-36); Mean Corpuscular Hemoglobin 27.9 pg (26-34); Mean Corpuscular Volume 86.8 fl (80-100); Platelet Count Result 203 k/mm3 (150-375); Red Blood Count 2.72 M/mm3 (4.2-5.4); Red Cell Distribution Width 17.1 % (11.5-14.5); White Blood Count 9.4 K/mm3 (4.5-10.0)
[2024-10-17 05:08] LABS: CRP 3.4 mg/dL (<1.0)
[2024-10-17 05:10] LABS: Alanine Aminotransferase 194 U/L (6-35); Albumin Level 2.6 g/dL (3.5-5.1); Alkaline Phosphatase 437 U/L (38-126); Anion Gap 6 mmol/L (4-12); Aspartate Amino Transferase 57 U/L (14-36); Bilirubin,Total 0.8 mg/dL (0.2-1.3); Blood Urea Nitrogen 35 mg/dL (7-17); Calcium 7.8 mg/dL (8.4-10.2); Carbon Dioxide 26 mmol/L (22-30); Chloride 101 mmol/L (98-107); Estimated CRCL calculation 12 ml/min; Estimated Glomerular Filt Rate 13; Glucose 113 mg/dL (65-110); Potassium 4.1 mmol/L (3.4-5.0); Sodium 133 mmol/L (137-145)
[2024-10-17 05:14] LABS: Complement C3 105 mg/dL (88-165)
[2024-10-17 05:20] LABS: Erythrocyte Sedimentation Rate > 140 mm/hr (0-20)
[2024-10-17 06:07] LABS: Glucose Point of Care 114 mg/dl (65-105)
[2024-10-17] MEDS: LEVOTHYROXINE SODIUM 150 MCG TABLET PO (06:20)
[2024-10-17] MEDS: APIXABAN 5 MG TABLET PO (08:47)
[2024-10-17] MEDS: busPIRone HCL 5 MG TABLET PO ×2 (08:47→21:02)
[2024-10-17] MEDS: dilTIAZem HCL CD 120 MG CAP.24HR PO (08:47)
[2024-10-17] MEDS: ESCITALOPRAM OXALATE 10 MG TABLET 20 MG PO (08:47)
[2024-10-17] MEDS: ASPIRIN 81 MG ENTERIC TABLET PO (08:47)
[2024-10-17] MEDS: IPRATROPIUM 0.5 MG/ALBUTEROL SULFATE 2.5 MG AMPUL.NEB 3 ML INHALATION (09:16)
[2024-10-17 09:31] LABS: Immature Reticulocyte Fraction 32.9 % (3.0-15.9); Reticulocyte Hemoglobin Conten 33.4 pg (28.2-36.6); Reticulocyte Percent 2.06 % (0.7-4.3); Reticulocytes Absolute 0.06 10^6/uL (0.02-0.10)
[2024-10-17 09:54] LABS: Lactate Dehydrogenase 273 U/L (120-246)
[2024-10-17 09:59] LABS: Iron 87 ug/dL (37-170)
[2024-10-17 10:01] LABS: Transferrin 200 mg/dL (206-381)
[2024-10-17 10:09] LABS: Percent Iron Saturation 31 % (20-50)
[2024-10-17 11:01] LABS: Folic Acid 15.3 ng/mL (2.76->20); Vitamin B12 > 1000.0 pg/mL (239-931)
--- NOTE | 2024-10-17 11:03 | P.PNNP_ITS ---
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 on PRODUCTION EDITOR/dialysis due to volume overload unresponsive to diuretic therapy * no critical electrolytes but issues with hyponatremia noted * fluid removal with HD as tolerated * follow respiratory status * HD on 10/12, 10/13, and 10/14 * HD yesterday * follow trend of repeat labs and UOP to assess for potential renal recovery (2) Acute hypoxic respiratory failure: Code(s): J96.01 - Acute respiratory failure with hypoxia Status: Chronic Assessment and Plan: * felt more related to renal failure than overt CHF * imaging to date with evidence of pulmonary edema/pleural effusions * ongoing fluid removal with HD as tolerated * monitor respiratory status * given CXR findings and tachypnea on 10/15, s/p DUF for further fluid removal * CT of chest (on 10/16) results noted: * large right and moderate left-sided pleural effusions with adjacent compressive atelectasis * given lack of improvement despite aggressive ultrafiltration, consider thoracentesis... * supplemental oxygen PRN (3) CHF (congestive heart failure): Code(s): I50.9 - Heart failure, unspecified Status: Acute Assessment and Plan: * recent Echo noted: * left ventricle is normal in size and systolic function * left ventricular ejection fraction is visually estimated to be 60-65% * paradoxical septal wall motion abnormality suggestive of bundle-branch block * right ventricle is normal in size and systolic function * no significant valvular abnormalities. * suspect volume overload/pulmonary edema/pleural effusion secondary to renal failure than CHF * failed trial of diuretic therapy * ongoing fluid removal with HD to acheive euvolemia (4) Anemia: Code(s): D64.9 - Anemia, unspecified Status: Acute Assessment and Plan: * related to CHAD and acute illness * drop in H/H noted by AM labs (10/17) * complicated by epitaxis and suspected GI bleed * anemia studies noted: * adequate iron stores * b12 and folate good * Epogen with HD * PRBC transfusion per protocol * GI to see again * holding Eliquis * follow trend of H/H (5) Atrial fibrillation with RVR: Code(s): I48.91 - Unspecified atrial fibrillation Status: Acute Assessment and Plan: * Cardiology recommendations noted * diltiazem for rate control * was on anticoagulation (Eliquis) - on hold due to #4 (6) Elevated liver enzymes: Code(s): R74.8 - Abnormal levels of other serum enzymes Status: Acute Assessment and Plan: * as noted on admission * slow improvement noted * thought to be related to altered hemodynamics/previous hypotension * GI following (7) Hypertension: Qualifiers: Hypertension type: unspecified Qualified Code(s): I10 - Essential (primary) hypertension Code(s): I10 - Essential (primary) hypertension Status: Chronic Assessment and Plan: * clinically better at this time * back on diltiazem (more so for rate control) * follow trend of hemodynamics (8) Diabetes: Code(s): E11.9 - Type 2 diabetes mellitus without complications Status: Acute Assessment and Plan: * follow accu-checks * glycemic control per hospitalist Will continue to follow. L Subjective Date/time seen: 10/17/24 11:03 Interval history: Follow-up for acute kidney injury/acute renal failure (now requiring [employer]OR/hemodialysis). Tolerated dialysis treatment yesterday without any issues or problems with 3L fluid removal; CT of chest yesterday afternoon noted with pleural effusions (despite aggressive ultrafiltration wit HD/DUF in the last few days); noted drop in H/H as well by AM labs (and is on Eliquis) -- nursing reports black tarry stools so GI called to see again; anemia studies noted. Exam 2 Narrative: General: elderly and mildly ill-appearing female in NAD Heart: normal S1 and S2; no rub Lungs: coarse and decreased/diminished at bases Abdomen: soft, nontender, nondistended, positive bowel sounds Extremities: no cyanosis or clubbing; no edema Skin: warm and intact Objective Data Vital Signs Vital Signs: Vital Signs Temp Pulse Resp BP Pulse Ox O2 Del Method O2 Flow Rate 10/17/24 09:25 90 16 10/17/24 09:16 88 16 10/17/24 09:16 95 Room Air 06/15/25 08:00 97 F L 87 18 114/72 100 10/17/24 04:18 98.5 F 85 16 134/67 100 10/17/24 04:00 84 10/17/24 00:00 85 10/17/24 00:00 98.4 F 86 16 109/48 L 94 10/16/24 20:06 87 20 10/16/24 20:00 88 10/16/24 20:00 100 Nasal Cannula 2 10/16/24 20:00 98.6 F 90 16 140/72 100 10/16/24 19:57 100 Nasal Cannula 3 10/16/24 19:56 90 20 10/16/24 16:02 92 10/16/24 16:00 97.9 F 94 20 138/32 L 100 10/16/24 14:19 84 20 10/16/24 14:15 88 20 10/16/24 13:20 97.5 F L 94 18 123/63 10/16/24 13:14 101 H 100/62 10/16/24 13:00 67 108/71 10/16/24 12:45 101 H 134/74 10/16/24 12:30 95 131/72 10/16/24 12:15 96 146/80 H 10/16/24 12:02 95 10/16/24 12:00 89 139/72 Intake/Output Intake/Output: Intake & Output 10/14/24 10/15/24 10/16/24 10/17/24 23:59 23:59 23:59 23:59 Intake Total 904.6 340 700 Output Total 2000 3000 [id number] [facility]6495.4 -2052 -1715 Meds/Results Medications: Active Medications Generic Name Dose Route Start Last Admin Trade Name Freq PRN Reason Stop Dose Admin Acetaminophen 500 mg 10/10/24 23:07 10/17/24 03:44 Acetaminophen 500 Mg Tablet PO 500 mg Q6H PRN Administration Mild Pain (1-3) or Fever Albuterol/Ipratropium 3 ml 10/13/24 02:00 10/17/24 09:16 Ipratropium 0.5 Mg/Albuterol Sulfate 2.5 Mg Ampul.Neb 3 Ml INHALATION 3 ml Q6HRT JIGNA Administration Apixaban 5 mg 10/14/24 12:00 10/17/24 08:47 Apixaban 5 Mg Tablet PO 5 mg Q12HR JIGNA Administration Aspirin 81 mg 10/10/24 09:00 10/17/24 08:47 Aspirin 81 Mg Enteric Tablet PO 81 mg DAILY JIGNA Administration Buspirone HCl 5 mg 10/12/24 11:30 10/17/24 08:47 Buspirone Hcl 5 Mg Tablet PO 5 mg Q12HR JIGNA Administration Dextrose 12.5 gm 10/09/24 20:02 Dextrose 50% 25 Gm/50 Ml Syringe IV PUSH PRN PRN Hypoglycemia Protocol Diltiazem HCl 120 mg 10/11/24 12:00 10/17/24 08:47 Diltiazem Hcl Cd 120 Mg Cap.24hr PO 120 mg QAM JIGNA Administration Escitalopram Oxalate 20 mg 10/10/24 09:00 10/17/24 08:47 Escitalopram Oxalate 10 Mg Tablet PO 20 mg DAILY JIGNA Administration Glucagon 1 mg 10/09/24 20:02 Glucagon For Inj 1 Mg Vial IM PRN PRN Hypoglycemia Protocol Glucose 15 gm 10/09/24 20:02 Glucose Oral Gel 15 Gm Of Glucse In 37.5 Gm Tube PO PRN PRN Hypoglycemia Protocol Hydromorphone HCl 0.5 mg 10/10/24 00:28 10/16/24 22:34 Hydromorphone Hcl Inj (*Crx) 2 Mg/Ml Vial IV PUSH 0.5 mg Q3H PRN Administration Pain Rated 7-10 Dextrose 1,000 mls @ 100 mls/hr 10/09/24 20:02 Dextrose 5% 1,000 Ml IVPB PRN PRN Hypoglycemia Protocol Albumin Human 50 mls @ 999 mls/hr 10/12/24 12:35 Albutein IVPB 11/11/24 12:34 Q10M PRN HYPOTENSION Insulin Aspart 2 - 5 units 10/10/24 00:00 10/17/24 06:18 Insulin Aspart (*Bkc) 100 Units/Ml SUB-Q Not Given Q6HR JIGNA Protocol Levothyroxine Sodium 125 mcg 10/10/24 06:30 10/16/24 06:02 Levothyroxine Sodium 125 Mcg Tablet BY MOUTH 125 mcg Q48H JIGNA Administration Levothyroxine Sodium 150 mcg 10/11/24 06:30 10/17/24 06:20 Levothyroxine Sodium 150 Mcg Tablet PO 150 mcg Q48H JIGNA Administration Montelukast Sodium 10 mg 10/09/24 21:35 10/16/24 21:08 Montelukast Sodium 10 Mg Tablet BY MOUTH 10 mg QHS JIGNA Administration Prochlorperazine Maleate 5 mg 10/16/24 22:44 10/17/24 11:11 Prochlorperazine Maleate 5 Mg Tablet PO 5 mg Q6H PRN Administration Nausea And Vomiting Radiology Results: ITS Impressions Abdomen/Pelvis CT 10/09/24 16:08 IMPRESSION: Trace pericardial effusion. Scattered calcified and noncalcified sub-6 mm pulmonary nodules, likely representing granulomas. Mild inflammatory change surrounding the pancreatic head and uncinate process, correlate for clinical findings of pancreatitis. Mild inflammatory stranding/edema in the proximal bile ducts, presumably related to the pancreatic process, noting that ascending cholangitis could appear similarly. Mild dilation of the third and fourth portions of the duodenum, presumably ileus related to the pancreatic process. Abdomen X-Ray 10/10/24 06:55 Impression: No acute abnormality is seen. Irregular markedly hyperdense opacity in the pelvis. Correlate for surgical/procedural history or traumatic history/foreign body. Renal Ultrasound 10/10/24 11:35 Impression: Unremarkable ultrasound of the kidneys and urinary bladder. Chest X-Ray 10/16/24 11:13 Impression: 1: Improved asymmetric right-sided airspace disease which may represent asymmetric edema or pneumonia. Chest CT 10/16/24 15:48 IMPRESSION: Large right and moderate left-sided pleural effusions with adjacent compressive atelectasis. Findings within the right middle and upper lobes suggesting asymmetric pulmonary edema. Small pericardial effusion. Labs Labs: Laboratory Tests 10/17/24 04:27 10/17/24 04:27 Calcium 7.8 L Total Bilirubin 0.8 AST 57 H ALT 194 H Alkaline Phosphatase 437 H C-Reactive Protein 3.4 H Total Protein 5.0 L Albumin 2.6 L
[2024-10-17] MEDS: PROCHLORPERAZINE MALEATE 5 MG TABLET PO ×2 (11:11→17:36)
[2024-10-17 12:59] LABS: Free T4 Free Thyroxine Reflex 1.15 ng/dL (0.78-2.19)
--- NOTE | 2024-10-17 13:16 | PCOTNOTE ---
Attempted to see pt for OT treatment. Pt is currently sleeping however was able to wake up enough to decline therapy treatment when pt's asked pt. Pt's RN Bettie is aware of pt's refusal. Will continue per poc duration/frequency tomorrow.
[2024-10-17 13:44] LABS: Total Triiodothyronine (T3) 0.48 NG/ML (0.82-1.58)
[2024-10-17 14:02] LABS: Hematocrit 22.4 % (37.0-47.0); Hemoglobin 7.2 g/dL (12.0-15.0)
--- NOTE | 2024-10-17 14:07 | WPDGIPROGNO ---
Progress Note: A&P Assessment and Plan (1) Melena: Code(s): K92.1 - Melena Status: Acute Assessment and Plan: with drop of h/h last egd with reflux esophagitis will repeat egd tomorrow to assess if bleeding ulcer (high risk given admission in icu with shock liver, renal failure, etc) ppi daily keep hgb>7 (2) Acute on chronic anemia: Code(s): D64.9 - Anemia, unspecified Status: Acute Assessment and Plan: ppi egd in am (3) CHAD (acute kidney injury): Code(s): N17.9 - Acute kidney failure, unspecified Status: Acute Assessment and Plan: s/p dialysis per renal (4) Atrial fibrillation with RVR: Code(s): I48.91 - Unspecified atrial fibrillation Status: Acute (5) Elevated liver enzymes: Code(s): R74.8 - Abnormal levels of other serum enzymes Status: Acute Assessment and Plan: trending down (6) Shock liver: Code(s): K72.00 - Acute and subacute hepatic failure without coma Status: Acute Assessment and Plan: resolved Subjective Date/time seen: 10/17/24 14:07 Interval history: few day ago Dr Crane was following patient because shock liver but liver enzymes improved since however recently new onset of tarry black stool and noted drop of hgb she is hemodynamically stable she is quite sharp and told me that had EGD 2022 (reviewed records)- noted grade II reflux esophagitis, colonoscopy few months ago with polyp. Review of Systems Review of Systems: All systems reviewed & are unremarkable except as noted in HPI and below Exam Const: General: comfortable and no acute distress Other: chronically ill appearing HENMT: Face/Nose/Sinus: Normal nares present Eyes: General: appearance normal, both eyes and all related structures Neck: Neck: supple Resp: Other: coarse bs Cardio: Rate: regular rate Rhythm: regular rhythm GI: Inspection: non-distended GI Palp: Yes Soft to palpation and No Tenderness to palpation present (GI) Auscultation: normal bowel sounds Skin: General skin exam: no rashes or lesions noted Neuro: Speech: normal speech Motor exam (neuro): 5/5 motor strength present throughout Extrem: General: normal to inspection Psych: Mental Status: mental status grossly normal Objective Data Vital Signs Vital Signs: Vital Signs - 24 hr 10/16/24 14:15 10/16/24 14:19 10/16/24 16:00 Temperature 97.9 F Pulse Rate 88 84 94 Respiratory Rate 20 20 20 Blood Pressure 138/32 L Pulse Oximetry 100 Oxygen Delivery Oxygen Flow Rate Fraction of Inspired Oxygen 10/16/24 16:02 10/16/24 19:56 10/16/24 19:57 Temperature Pulse Rate 92 90 Respiratory Rate 20 Blood Pressure Pulse Oximetry 100 Oxygen Delivery Nasal Cannula Oxygen Flow Rate 3 Fraction of Inspired Oxygen 10/16/24 20:00 10/16/24 20:00 10/16/24 20:00 Temperature 98.6 F Pulse Rate 90 88 Respiratory Rate 16 Blood Pressure 140/72 Pulse Oximetry 100 100 Oxygen Delivery Nasal Cannula Oxygen Flow Rate 2 Fraction of Inspired Oxygen 10/16/24 20:06 10/17/24 00:00 10/17/24 00:00 Temperature 98.4 F Pulse Rate 87 86 85 Respiratory Rate 20 16 Blood Pressure 109/48 L Pulse Oximetry 94 Oxygen Delivery Oxygen Flow Rate Fraction of Inspired Oxygen 10/17/24 04:00 10/17/24 04:18 10/17/24 08:00 Temperature 98.5 F 97 F L Pulse Rate 84 85 87 Respiratory Rate 16 18 Blood Pressure 134/67 114/72 Pulse Oximetry 100 100 Oxygen Delivery Oxygen Flow Rate Fraction of Inspired Oxygen 10/17/24 09:16 10/17/24 09:16 10/17/24 09:25 Temperature Pulse Rate 88 90 Respiratory Rate 16 16 Blood Pressure Pulse Oximetry 95 Oxygen Delivery Room Air Oxygen Flow Rate Fraction of Inspired Oxygen 21 Intake/Output Intake/Output: Intake & Output 10/14/24 10/15/24 10/16/24 10/17/24 23:59 23:59 23:59 23:59 Intake Total 904.6 340 700 Output Total 2000 3000 3000 [facility] -1095.4 -2660 -2300 Meds/Results Medications: Active Medications Generic Name Dose Route Start Last Admin Trade Name Freq PRN Reason Stop Dose Admin Acetaminophen 500 mg 10/10/24 23:07 10/17/24 03:44 Acetaminophen 500 Mg Tablet PO 500 mg Q6H PRN Administration Mild Pain (1-3) or Fever Albuterol/Ipratropium 3 ml 10/13/24 02:00 10/17/24 09:16 Ipratropium 0.5 Mg/Albuterol Sulfate 2.5 Mg Ampul.Neb 3 Ml INHALATION 3 ml Q6HRT JIGNA Administration Apixaban 5 mg 10/14/24 12:00 10/17/24 08:47 Apixaban 5 Mg Tablet PO 5 mg Q12HR JIGNA Administration Aspirin 81 mg 10/10/24 09:00 10/17/24 08:47 Aspirin 81 Mg Enteric Tablet PO 81 mg DAILY JIGNA Administration Buspirone HCl 5 mg 10/12/24 11:30 10/17/24 08:47 Buspirone Hcl 5 Mg Tablet PO 5 mg Q12HR JIGNA Administration Dextrose 12.5 gm 10/09/24 20:02 Dextrose 50% 25 Gm/50 Ml Syringe IV PUSH PRN PRN Hypoglycemia Protocol Diltiazem HCl 120 mg 10/11/24 12:00 10/17/24 08:47 Diltiazem Hcl Cd 120 Mg Cap.24hr PO 120 mg QAM JIGNA Administration Escitalopram Oxalate 20 mg 10/10/24 09:00 10/17/24 08:47 Escitalopram Oxalate 10 Mg Tablet PO 20 mg DAILY JIGNA Administration Glucagon 1 mg 10/09/24 20:02 Glucagon For Inj 1 Mg Vial IM PRN PRN Hypoglycemia Protocol Glucose 15 gm 10/09/24 20:02 Glucose Oral Gel 15 Gm Of Glucse In 37.5 Gm Tube PO PRN PRN Hypoglycemia Protocol Hydromorphone HCl 0.5 mg 10/10/24 00:28 10/16/24 22:34 Hydromorphone Hcl Inj (*Crx) 2 Mg/Ml Vial IV PUSH 0.5 mg Q3H PRN Administration Pain Rated 7-10 Dextrose 1,000 mls @ 100 mls/hr 10/09/24 20:02 Dextrose 5% 1,000 Ml IVPB PRN PRN Hypoglycemia Protocol Albumin Human 50 mls @ 999 mls/hr 10/12/24 12:35 Albutein IVPB 11/11/24 12:34 Q10M PRN HYPOTENSION Insulin Aspart 2 - 5 units 10/10/24 00:00 10/17/24 06:18 Insulin Aspart (*Bkc) 100 Units/Ml SUB-Q Not Given Q6HR [facility] Protocol Levothyroxine Sodium 125 mcg 10/10/24 06:30 10/16/24 06:02 Levothyroxine Sodium 125 Mcg Tablet BY MOUTH 125 mcg Q48H JIGNA Administration Levothyroxine Sodium 150 mcg 10/11/24 06:30 10/17/24 06:20 Levothyroxine Sodium 150 Mcg Tablet PO 150 mcg Q48H JIGNA Administration Montelukast Sodium 10 mg 10/09/24 21:35 10/16/24 21:08 Montelukast Sodium 10 Mg Tablet BY MOUTH 10 mg QHS JIGNA Administration Oxymetazoline HCl 1 spray 10/17/24 12:43 Oxymetazoline Hcl 0.05% Pete 15 Ml Btl (*Bkc) NASAL Q12HR PRN Dryness Prochlorperazine Maleate 5 mg 10/16/24 22:44 10/17/24 11:11 Prochlorperazine Maleate 5 Mg Tablet PO 5 mg Q6H PRN Administration Nausea And Vomiting Radiology Results: ITS Impressions Abdomen/Pelvis CT 10/09/24 16:08 IMPRESSION: Trace pericardial effusion. Scattered calcified and noncalcified sub-6 mm pulmonary nodules, likely representing granulomas. Mild inflammatory change surrounding the pancreatic head and uncinate process, correlate for clinical findings of pancreatitis. Mild inflammatory stranding/edema in the proximal bile ducts, presumably related to the pancreatic process, noting that ascending cholangitis could appear similarly. Mild dilation of the third and fourth portions of the duodenum, presumably ileus related to the pancreatic process. Abdomen X-Ray 10/10/24 06:55 Impression: No acute abnormality is seen. Irregular markedly hyperdense opacity in the pelvis. Correlate for surgical/procedural history or traumatic history/foreign body. Renal Ultrasound 10/10/24 11:35 Impression: Unremarkable ultrasound of the kidneys and urinary bladder. Chest X-Ray 10/16/24 11:13 Impression: 1: Improved asymmetric right-sided airspace disease which may represent asymmetric edema or pneumonia. Chest CT 10/16/24 15:48 IMPRESSION: Large right and moderate left-sided pleural effusions with adjacent compressive atelectasis. Findings within the right middle and upper lobes suggesting asymmetric pulmonary edema. Small pericardial effusion. Labs Labs: Laboratory Results - last 24 hr 10/16/24 10/16/24 10/17/24 17:16 19:44 00:09 WBC RBC Hgb Hct MCV MCH MCHC RDW Plt Count MPV ESR Absolute Retic Percent Retic Immature Retic Fraction Retic Hgb Content Sodium Potassium Chloride Carbon Dioxide Anion Gap BUN Creatinine Estim Creat Clear Calc Estimated GFR Glucose POC Capillary Glucose 136 H 119 H 107 H Calcium Iron TIBC % Saturation Transferrin Ferritin Total Bilirubin Direct Bilirubin AST ALT Alkaline Phosphatase Lactate Dehydrogenase C-Reactive Protein Total Protein Albumin Vitamin B12 Folate TSH (Reflex) Free T4 Total T3 Complement C3 Complement C4 LES, Poly Interpret LES, Complement Interp Indirect Antiglob Test 10/17/24 10/17/24 10/17/24 04:27 06:03 09:34 WBC 9.4 RBC 2.72 L Hgb 7.6 L Hct 23.6 L MCV 86.8 MCH 27.9 MCHC 32.2 RDW 17.1 H Plt Count 203 MPV 10.0 ESR > 140 H Absolute Retic 0.06 Percent Retic 2.06 Immature Retic Fraction 32.9 H Retic Hgb Content 33.4 Sodium 133 L Potassium 4.1 Chloride 101 Carbon Dioxide 26 Anion Gap 6 BUN 35 H Creatinine 3.38 H Estim Creat Clear Calc 12 Estimated GFR 13 L Glucose 113 H POC Capillary Glucose 114 H Calcium 7.8 L Iron 87 TIBC 285 % Saturation 31 Transferrin 200 L Ferritin 82.90 Total Bilirubin 0.8 Direct Bilirubin 0.0 AST 57 H ALT 194 H Alkaline Phosphatase 437 H Lactate Dehydrogenase 273 H C-Reactive Protein 3.4 H Total Protein 5.0 L Albumin 2.6 L Vitamin B12 > 1000.0 H Folate 15.3 TSH (Reflex) 4.780 H Free T4 1.15 Total T3 0.48 L Complement C3 105 Complement C4 25.9 LES, Poly Interpret Negative LES, Complement Interp Not Performed Indirect Antiglob Test Negative 10/17/24 13:47 WBC RBC Hgb 7.2 L Hct 22.4 L MCV MCH MCHC RDW Plt Count MPV ESR Absolute Retic Percent Retic Immature Retic Fraction Retic Hgb Content Sodium Potassium Chloride Carbon Dioxide Anion Gap BUN Creatinine Estim Creat Clear Calc Estimated GFR Glucose POC Capillary Glucose Calcium Iron TIBC % Saturation Transferrin Ferritin Total Bilirubin Direct Bilirubin AST ALT Alkaline Phosphatase Lactate Dehydrogenase C-Reactive Protein Total Protein Albumin Vitamin B12 Folate TSH (Reflex) Free T4 Total T3 Complement C3 Complement C4 LES, Poly Interpret LES, Complement Interp Indirect Antiglob Test
--- NOTE | 2024-10-17 14:16 | P.PNIM_ITS ---
Progress Note: A&P Assessment and Plan (1) CHAD (acute kidney injury): Code(s): N17.9 - Acute kidney failure, unspecified Status: Acute Assessment and Plan: with fluid overload on dialysis Discussed with Dr Martin and plan is to decide for permanent dialysis this weekend Trend creatinine monitor (2) Constipation: Code(s): K59.00 - Constipation, unspecified Status: Acute Assessment and Plan: Senna (3) Diabetes: Code(s): E11.9 - Type 2 diabetes mellitus without complications Status: Acute Assessment and Plan: Accu-Cheks q.6 SSI Hold home diabetes medications (4) Hypertension: Qualifiers: Hypertension type: unspecified Qualified Code(s): I10 - Essential (primary) hypertension Code(s): I10 - Essential (primary) hypertension Status: Chronic Assessment and Plan: home emds on hold as hypotensive (5) CHF (congestive heart failure): Code(s): I50.9 - Heart failure, unspecified Status: Acute Assessment and Plan: Last echo 2021 ejection fraction 55-60% cardiology on board (6) Atrial fibrillation with RVR: Code(s): I48.91 - Unspecified atrial fibrillation Status: Acute Assessment and Plan: new onset of afib Continue Cardizem 120mg and Eliquis 5mg bid po (7) Anemia: Code(s): D64.9 - Anemia, unspecified Status: Acute Assessment and Plan: Evidence of black tarry stool Hemoglobin dropped from 9.2-7.2 from yesterday 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 Apixaban on hold. Patient reports that she is feeling very weak. Ordered anemia panel. Her hemoglobin has dropped from 9.2-7.2. Nursing reports of black tarry stools. Consulted GI Review of Systems Review of Systems: 12 systems were reviewed and are negativ e except for as per HPI. Exam Narrative: General: well appearing, appears stated age. HEENT: normocephalic, atraumatic. Mucous membranes moist. EOMI, PERRLA, bilateral sclera anicteric, no conjunctival injection. Neck supple without JVD, lymphadenopathy, or bruit. Respiratory: clear to ascultation bilaterally. No rales/rhonic/wheezes. Cardiovascular: normal S1-S2 upon ascultation. No murmurs, rubs, or clicks. PMI is nondisplaced, capillary refill less than 3 second. Abdomen: Soft, round, no pulsatile masses, nondistended and nontender. No rebound, no guarding. No CVA tenderness, no hepatosplenomegaly. Bowel sounds present Extremities: No cyanosis, clubbing, or edema present. Pulses are palpable 2/2. Active ROM to all four extremities. Neuro: Alert and orientated x 4. PERRLA. Cranial nerves 2-12 intact without focal deficit. Skin: Warm, dry, and intact, without rash, erythema, or lesion. Psych: pleasant, cooperative, normal speech, normal affect, no hallucinations, no dysarthia Const: General: comfortable Objective Data Vital Signs Vital Signs: Vital Signs - 24 hr 10/16/24 14:19 10/16/24 16:00 10/16/24 16:02 Temperature 97.9 F Pulse Rate 84 94 92 Respiratory Rate 20 20 Blood Pressure 138/32 L Pulse Oximetry 100 Oxygen Delivery Oxygen Flow Rate Fraction of Inspired Oxygen 10/16/24 19:56 10/16/24 19:57 10/16/24 20:00 Temperature 98.6 F Pulse Rate 90 90 Respiratory Rate 20 16 Blood Pressure 140/72 Pulse Oximetry 100 100 Oxygen Delivery Nasal Cannula Oxygen Flow Rate 3 Fraction of Inspired Oxygen 10/16/24 20:00 10/16/24 20:00 10/16/24 20:06 Temperature Pulse Rate 88 87 Respiratory Rate 20 Blood Pressure Pulse Oximetry 100 Oxygen Delivery Nasal Cannula Oxygen Flow Rate 2 Fraction of Inspired Oxygen 10/17/24 00:00 10/17/24 00:00 10/17/24 04:00 Temperature 98.4 F Pulse Rate 86 85 84 Respiratory Rate 16 Blood Pressure 109/48 L Pulse Oximetry 94 Oxygen Delivery Oxygen Flow Rate Fraction of Inspired Oxygen 10/17/24 04:18 10/17/24 08:00 10/17/24 09:16 Temperature 98.5 F 97 F L Pulse Rate 85 87 Respiratory Rate 16 18 Blood Pressure 134/67 114/72 Pulse Oximetry 100 100 95 Oxygen Delivery Room Air Oxygen Flow Rate Fraction of Inspired Oxygen 21 10/17/24 09:16 10/17/24 09:25 10/17/24 10:00 Temperature Pulse Rate 88 90 Respiratory Rate 16 16 Blood Pressure Pulse Oximetry 100 Oxygen Delivery Room Air Oxygen Flow Rate Fraction of Inspired Oxygen Intake/Output Intake/Output: Intake & Output 10/14/24 10/15/24 10/16/24 10/17/24 23:59 23:59 23:59 23:59 Intake Total 904.6 340 700 240 Output Total 2000 3000 3000 Balance -1095.4 -6000 -2300 240 Meds/Results Medications: Active Medications Generic Name Dose Route Start Last Admin Trade Name Freq PRN Reason Stop Dose Admin Acetaminophen 500 mg 10/10/24 23:07 10/17/24 03:44 Acetaminophen 500 Mg Tablet PO 500 mg Q6H PRN Administration Mild Pain (1-3) or Fever Albuterol/Ipratropium 3 ml 10/13/24 02:00 10/17/24 09:16 Ipratropium 0.5 Mg/Albuterol Sulfate 2.5 Mg Ampul.Neb 3 Ml INHALATION 3 ml Q6HRT JIGNA Administration Apixaban 5 mg 10/14/24 12:00 10/17/24 08:47 Apixaban 5 Mg Tablet PO 5 mg Q12HR JIGNA Administration Aspirin 81 mg 10/10/24 09:00 10/17/24 08:47 Aspirin 81 Mg Enteric Tablet PO 81 mg DAILY JIGNA Administration Buspirone HCl 5 mg 10/12/24 11:30 10/17/24 08:47 Buspirone Hcl 5 Mg Tablet PO 5 mg Q12HR JIGNA Administration Dextrose 12.5 gm 10/09/24 20:02 Dextrose 50% 25 Gm/50 Ml Syringe IV PUSH PRN PRN Hypoglycemia Protocol Diltiazem HCl 120 mg 10/11/24 12:00 10/17/24 08:47 Diltiazem Hcl Cd 120 Mg Cap.24hr PO 120 mg QAM JIGNA Administration Escitalopram Oxalate 20 mg 10/10/24 09:00 10/17/24 08:47 Escitalopram Oxalate 10 Mg Tablet PO 20 mg DAILY JIGNA Administration Glucagon 1 mg 10/09/24 20:02 Glucagon For Inj 1 Mg Vial IM PRN PRN Hypoglycemia Protocol Glucose 15 gm 10/09/24 20:02 Glucose Oral Gel 15 Gm Of Glucse In 37.5 Gm Tube PO PRN PRN Hypoglycemia Protocol Hydromorphone HCl 0.5 mg 10/10/24 00:28 10/16/24 22:34 Hydromorphone Hcl Inj (*Crx) 2 Mg/Ml Vial IV PUSH 0.5 mg Q3H PRN Administration Pain Rated 7-10 Dextrose 1,000 mls @ 100 mls/hr 10/09/24 20:02 Dextrose 5% 1,000 Ml IVPB PRN PRN Hypoglycemia Protocol Albumin Human 50 mls @ 999 mls/hr 10/12/24 12:35 Albutein IVPB 11/11/24 12:34 Q10M PRN HYPOTENSION Insulin Aspart 2 - 5 units 10/10/24 00:00 10/17/24 14:12 Insulin Aspart (*Bkc) 100 Units/Ml SUB-Q Not Given Q6HR [facility] Protocol Levothyroxine Sodium 125 mcg 10/10/24 06:30 10/16/24 06:02 Levothyroxine Sodium 125 Mcg Tablet BY MOUTH 125 mcg Q48H JIGNA Administration Levothyroxine Sodium 150 mcg 10/11/24 06:30 10/17/24 06:20 Levothyroxine Sodium 150 Mcg Tablet PO 150 mcg Q48H JIGNA Administration Montelukast Sodium 10 mg 10/09/24 21:35 10/16/24 21:08 Montelukast Sodium 10 Mg Tablet BY MOUTH 10 mg QHS JIGNA Administration Oxymetazoline HCl 1 spray 10/17/24 12:43 Oxymetazoline Hcl 0.05% Pete 15 Ml Btl (*Bkc) NASAL Q12HR PRN Dryness Pantoprazole Sodium 40 mg 10/18/24 09:00 Pantoprazole Sodium Iv 40 Mg Vial IV PUSH QAM JIGNA Prochlorperazine Maleate 5 mg 10/16/24 22:44 10/17/24 11:11 Prochlorperazine Maleate 5 Mg Tablet PO 5 mg Q6H PRN Administration Nausea And Vomiting Radiology Results: ITS Impressions Abdomen/Pelvis CT 10/09/24 16:08 IMPRESSION: Trace pericardial effusion. Scattered calcified and noncalcified sub-6 mm pulmonary nodules, likely representing granulomas. Mild inflammatory change surrounding the pancreatic head and uncinate process, correlate for clinical findings of pancreatitis. Mild inflammatory stranding/edema in the proximal bile ducts, presumably related to the pancreatic process, noting that ascending cholangitis could appear similarly. Mild dilation of the third and fourth portions of the duodenum, presumably ileus related to the pancreatic process. Abdomen X-Ray 10/10/24 06:55 Impression: No acute abnormality is seen. Irregular markedly hyperdense opacity in the pelvis. Correlate for surgical/procedural history or traumatic history/foreign body. Renal Ultrasound 10/10/24 11:35 Impression: Unremarkable ultrasound of the kidneys and urinary bladder. Chest X-Ray 10/16/24 11:13 Impression: 1: Improved asymmetric right-sided airspace disease which may represent asymmetric edema or pneumonia. Chest CT 10/16/24 15:48 IMPRESSION: Large right and moderate left-sided pleural effusions with adjacent compressive atelectasis. Findings within the right middle and upper lobes suggesting asymmetric pulmonary edema. Small pericardial effusion. Labs Labs: Laboratory Results - last 24 hr 10/16/24 10/16/24 10/17/24 17:16 19:44 00:09 WBC RBC Hgb Hct MCV MCH MCHC RDW Plt Count MPV ESR Absolute Retic Percent Retic Immature Retic Fraction Retic Hgb Content Sodium Potassium Chloride Carbon Dioxide Anion Gap BUN Creatinine Estim Creat Clear Calc Estimated GFR Glucose POC Capillary Glucose 136 H 119 H 107 H Calcium Iron TIBC % Saturation Transferrin Ferritin Total Bilirubin Direct Bilirubin AST ALT Alkaline Phosphatase Lactate Dehydrogenase C-Reactive Protein Total Protein Albumin Vitamin B12 Folate TSH (Reflex) Free T4 Total T3 Complement C3 Complement C4 LES, Poly Interpret LES, Complement Interp Indirect Antiglob Test 10/17/24 10/17/24 10/17/24 04:27 06:03 09:34 WBC 9.4 RBC 2.72 L Hgb 7.6 L Hct 23.6 L MCV 86.8 MCH 27.9 MCHC 32.2 RDW 17.1 H Plt Count 203 MPV 10.0 ESR > 140 H Absolute Retic 0.06 Percent Retic 2.06 Immature Retic Fraction 32.9 H Retic Hgb Content 33.4 Sodium 133 L Potassium 4.1 Chloride 101 Carbon Dioxide 26 Anion Gap 6 BUN 35 H Creatinine 3.38 H Estim Creat Clear Calc 12 Estimated GFR 13 L Glucose 113 H POC Capillary Glucose 114 H Calcium 7.8 L Iron 87 TIBC 285 % Saturation 31 Transferrin 200 L Ferritin 82.90 Total Bilirubin 0.8 Direct Bilirubin 0.0 AST 57 H ALT 194 H Alkaline Phosphatase 437 H Lactate Dehydrogenase 273 H C-Reactive Protein 3.4 H Total Protein 5.0 L Albumin 2.6 L Vitamin B12 > 1000.0 H Folate 15.3 TSH (Reflex) 4.780 H Free T4 1.15 Total T3 0.48 L Complement C3 105 Complement C4 25.9 LES, Poly Interpret Negative LES, Complement Interp Not Performed Indirect Antiglob Test Negative 10/17/24 13:47 WBC RBC Hgb 7.2 L Hct 22.4 L MCV MCH MCHC RDW Plt Count MPV ESR Absolute Retic Percent Retic Immature Retic Fraction Retic Hgb Content Sodium Potassium Chloride Carbon Dioxide Anion Gap BUN Creatinine Estim Creat Clear Calc Estimated GFR Glucose POC Capillary Glucose Calcium Iron TIBC % Saturation Transferrin Ferritin Total Bilirubin Direct Bilirubin AST ALT Alkaline Phosphatase Lactate Dehydrogenase C-Reactive Protein Total Protein Albumin Vitamin B12 Folate TSH (Reflex) Free T4 Total T3 Complement C3 Complement C4 LES, Poly Interpret LES, Complement Interp Indirect Antiglob Test Quality VTE Prophylaxis VTE prophylaxis: mechanical ordered Hospitalist MIPS Advance Care Plan I have confirmed that the patient's Advanced Care Plan is present, code status is documented, or surrogate decision maker is listed in patient medical record.: Yes Medication Reconciliation I have utilized all available resources to obtain, update and review the patients current medications (includes all prescriptions, OTC, herbals, cannabis, and nutritional supplements).: Yes
[2024-10-17 15:37] LABS: IFOB Positive Control Positive; Immunochemical Fecal Occult Bl Positive (N)
--- NOTE | 2024-10-17 16:10 | ED.PROGRESS ---
Subjective Date/time seen: 10/17/24 16:10 Interval history: I was called to the floor to evaluate the patient's epistaxis in order to place a rhino rocket. Prior to getting to the floor I had nursing placed a nasal clamp on the patient. Clamp in place for approximately 10 minutes prior to my arriving to the floor. On arrival the bleeding had resolved. Patient had no bleeding down the posterior pharynx and patient had no bleeding from the left naris as previously described. On evaluation patient did have a small area excoriation along the septum that was not actively bleeding. And thought this was from a prior nasal cannula. Afrin-soaked gauze was packed in the left naris. Nursing was advised to remove this packing after 30 minutes. Nursing was also advised that if the bleeding resumes that the showed replace the nasal clamp for 15 minutes. If there is free bleeding they can replace the clamp for another 15 minutes repeat this for a total of 3 times. If there is profuse bleeding or if there is still bleeding after removing the nasal clamp the can call unable re-evaluate and place a rhino rocket. ENT is on-call tomorrow Review of Systems Review of Systems All systems reviewed & are unremarkable except as noted in HPI and below Exam Narrative APPEARANCE: Well appearing, no pain, no distress, well-nourished. HEAD: normocephalic, atraumatic. EYES: PERRLA/EOMI, conjunctivae clear. NOSE: No current epistaxis, small area of excoriation on the medial nasal septum of the left naris with no active bleeding. No active bleeding down the posterior pharynx Objective Data Meds/Results Medications: Active Medications Generic Name Dose Route Start Last Admin Trade Name Freq PRN Reason Stop Dose Admin Acetaminophen 500 mg 10/10/24 23:07 10/17/24 03:44 Acetaminophen 500 Mg Tablet PO 500 mg Q6H PRN Administration Mild Pain (1-3) or Fever Albuterol/Ipratropium 3 ml 10/13/24 02:00 10/17/24 14:55 Ipratropium 0.5 Mg/Albuterol Sulfate 2.5 Mg Ampul.Neb 3 Ml INHALATION Not Given Q6HRT JIGNA Apixaban 5 mg 10/14/24 12:00 10/17/24 08:47 Apixaban 5 Mg Tablet PO 5 mg Q12HR JIGNA Administration Aspirin 81 mg 10/10/24 09:00 10/17/24 08:47 Aspirin 81 Mg Enteric Tablet PO 81 mg DAILY JIGNA Administration Buspirone HCl 5 mg 10/12/24 11:30 10/17/24 08:47 Buspirone Hcl 5 Mg Tablet PO 5 mg Q12HR JIGNA Administration Dextrose 12.5 gm 10/09/24 20:02 Dextrose 50% 25 Gm/50 Ml Syringe IV PUSH PRN PRN Hypoglycemia Protocol Diltiazem HCl 120 mg 10/11/24 12:00 10/17/24 08:47 Diltiazem Hcl Cd 120 Mg Cap.24hr PO 120 mg QAM JIGNA Administration Escitalopram Oxalate 20 mg 10/10/24 09:00 10/17/24 08:47 Escitalopram Oxalate 10 Mg Tablet PO 20 mg DAILY JIGNA Administration Glucagon 1 mg 10/09/24 20:02 Glucagon For Inj 1 Mg Vial IM PRN PRN Hypoglycemia Protocol Glucose 15 gm 10/09/24 20:02 Glucose Oral Gel 15 Gm Of Glucse In 37.5 Gm Tube PO PRN PRN Hypoglycemia Protocol Hydromorphone HCl 0.5 mg 10/10/24 00:28 10/16/24 22:34 Hydromorphone Hcl Inj (*Crx) 2 Mg/Ml Vial IV PUSH 0.5 mg Q3H PRN Administration Pain Rated 7-10 Dextrose 1,000 mls @ 100 mls/hr 10/09/24 20:02 Dextrose 5% 1,000 Ml IVPB PRN PRN Hypoglycemia Protocol Albumin Human 50 mls @ 999 mls/hr 10/12/24 12:35 Albutein IVPB 11/11/24 12:34 Q10M PRN HYPOTENSION Insulin Aspart 2 - 5 units 10/10/24 00:00 10/17/24 14:12 Insulin Aspart (*Bkc) 100 Units/Ml SUB-Q Not Given Q6HR JIGNA Protocol Levothyroxine Sodium 125 mcg 10/10/24 06:30 10/16/24 06:02 Levothyroxine Sodium 125 Mcg Tablet BY MOUTH 125 mcg Q48H JIGNA Administration Levothyroxine Sodium 150 mcg 10/11/24 06:30 10/17/24 06:20 Levothyroxine Sodium 150 Mcg Tablet PO 150 mcg Q48H JIGNA Administration Montelukast Sodium 10 mg 10/09/24 21:35 10/16/24 21:08 Montelukast Sodium 10 Mg Tablet BY MOUTH 10 mg QHS JIGNA Administration Oxymetazoline HCl 1 spray 10/17/24 12:43 Oxymetazoline Hcl 0.05% Pete 15 Ml Btl (*Bkc) NASAL Q12HR PRN Dryness Pantoprazole Sodium 40 mg 10/18/24 09:00 Pantoprazole Sodium Iv 40 Mg Vial IV PUSH QAM JIGNA Prochlorperazine Maleate 5 mg 10/16/24 22:44 10/17/24 11:11 Prochlorperazine Maleate 5 Mg Tablet PO 5 mg Q6H PRN Administration Nausea And Vomiting Radiology Results: ITS Impressions Abdomen/Pelvis CT 10/09/24 16:08 IMPRESSION: Trace pericardial effusion. Scattered calcified and noncalcified sub-6 mm pulmonary nodules, likely representing granulomas. Mild inflammatory change surrounding the pancreatic head and uncinate process, correlate for clinical findings of pancreatitis. Mild inflammatory stranding/edema in the proximal bile ducts, presumably related to the pancreatic process, noting that ascending cholangitis could appear similarly. Mild dilation of the third and fourth portions of the duodenum, presumably ileus related to the pancreatic process. Abdomen X-Ray 10/10/24 06:55 Impression: No acute abnormality is seen. Irregular markedly hyperdense opacity in the pelvis. Correlate for surgical/procedural history or traumatic history/foreign body. Renal Ultrasound 10/10/24 11:35 Impression: Unremarkable ultrasound of the kidneys and urinary bladder. Chest X-Ray 10/16/24 11:13 Impression: 1: Improved asymmetric right-sided airspace disease which may represent asymmetric edema or pneumonia. Chest CT 10/16/24 15:48 IMPRESSION: Large right and moderate left-sided pleural effusions with adjacent compressive atelectasis. Findings within the right middle and upper lobes suggesting asymmetric pulmonary edema. Small pericardial effusion. Progress Note: A&P Assessment and Plan (1) Nasal bleeding: Code(s): R04.0 - Epistaxis Status: Acute Assessment and Plan: See assessment and plan below Plan Bleeding resolved. Afrin soaked gauze was placed for 30 minutes If bleeding resumes replace the clamp for another 15 minutes repeat this for a total of 3 times. If there is profuse bleeding or if there is still bleeding after removing the nasal clamp the can call unable re-evaluate and place a rhino rocket. Time Spent With Patient Time: 15 minutes
[2024-10-17 19:23] LABS: Hematocrit 22.4 % (37.0-47.0); Hemoglobin 7.1 g/dL (12.0-15.0)
[2024-10-17 19:50] LABS: Glucose Point of Care 126 mg/dl (65-105)
--- NOTE | 2024-10-17 19:53 | PM.CCN ---
Critical Care Event Note Summary Code activated: Yes Narrative: Rapid Response called at 19:41. I responded as well as Owen Adame NP. S: Patient was up to the bedside commode to void. When staff came to check on her she was slumped over but responsive. She was helped back to bed and was found to have a blood pressure of 94/48. At the time my evaluation the patient states that she is feeling better now that she is back in bed. She complains of nausea but that has been an ongoing problem. O: Alert and oriented. Skin is cool and clammy. Slightly pale. Peripheral pulses palpable. She is in a regular rate and rhythm. Lung sounds are a bit diminished but are otherwise clear. No significant lower extremity edema. A: Near syncope. Due to drop in blood pressure vs vasovagal event. P: Hemoglobin has been trending downward and she will be transfused 1 unit of packed red blood cells. Plans are for upper and lower endoscopy tomorrow. This case had a high probability of a clinically significant, sudden, or life threatening deterioration of this patient's condition which required my full and direct attention, intervention and personal management. Critical care time: less than 30 mins
[2024-10-17 20:35] LABS: Sodium Urine Random 122 meq/L
[2024-10-17 20:40] LABS: Creatinine Urine 10.5 mg/dL
[2024-10-17 20:43] LABS: Eosinophil Urine None Seen % (None Seen); Urine Eos QC 2nd Tech Confirmed
[2024-10-17 20:48] LABS: Total Protein Urine Random > 600 mg/dL; Urea Random Urine < 67 MG/DL
[2024-10-17 20:49] LABS: Total Protein Urine Random > 600 mg/dL; Ur Ttl Prot Creatinine Ratio > 57.14 mg/mg (0-0.20)
[2024-10-17] MEDS: SODIUM CHLORIDE 0.9% IV 250 ML 30 ML IV CONT (20:58)
[2024-10-17] MEDS: MONTELUKAST SODIUM 10 MG TABLET BY MOUTH (21:02)
[2024-10-18] VITALS (30 sets, daily range): BP systolic 106–150; BP diastolic 43–71; PULSE 80–95; RESP 14–20; TEMP 36.1–36.7; O2SAT 90–100
[2024-10-18] MEDS: PROCHLORPERAZINE MALEATE 5 MG TABLET PO (00:15)
[2024-10-18 00:57] LABS: Glucose Point of Care 111 mg/dl (65-105)
[2024-10-18] MEDS: OXYMETAZOLINE HCL 0.05% NAS 15 ML BTL (*BKC) 1 SPRAY NASAL (01:21)
[2024-10-18 02:42] LABS: Hematocrit 26.9 % (37.0-47.0); Hemoglobin 8.6 g/dL (12.0-15.0)
[2024-10-18 02:58] LABS: INR 2.2; Prothrombin Time 23.9 Seconds (11.1-14.7)
[2024-10-18 02:59] LABS: Partial Thromboplastin Time 33.3 Seconds (22.3-36.8)
--- NOTE | 2024-10-18 04:43 | ECG_ITS ---
Test Date: 2024-10-18 05:00:14 Measurements Intervals [place] Rate: 93 P: 113 DC: 178 QRS: 54 QRSD: 133 T: 93 QT: 398 QTc: 497 Interpretive Statements SINUS RHYTHM WITH OCCASIONAL SUPRAVENTRICULAR PREMATURE COMPLEXES LEFT BUNDLE BRANCH BLOCK BASELINE ARTIFACT- I, II, AVL, V2, V5-V6 ABNORMAL ECG Compared to ECG 10/14/2024 02:10:12 No significant changes Electronically Signed On 10-18-2024 06:17:15 CDT by Alvin Morrow D.O.
[2024-10-18] MEDS: ONDANSETRON INJ 4 MG/2 ML VIAL IV PUSH (05:13)
[2024-10-18 05:30] LABS: Hematocrit 26.5 % (37.0-47.0); Hemoglobin 8.4 g/dL (12.0-15.0); Mean Corpuscular HGB Conc 31.7 g/dl (32-36); Mean Corpuscular Hemoglobin 28.2 pg (26-34); Mean Corpuscular Volume 88.9 fl (80-100); Mean Platelet Volume 9.9 fl (7.4-10.4); Platelet Count Result 253 k/mm3 (150-375); Red Blood Count 2.98 M/mm3 (4.2-5.4); Red Cell Distribution Width 16.7 % (11.5-14.5); White Blood Count 10.9 K/mm3 (4.5-10.0)
[2024-10-18 05:46] LABS: Glucose Point of Care 100 mg/dl (65-105)
[2024-10-18 05:49] LABS: Alanine Aminotransferase 160 U/L (6-35); Alkaline Phosphatase 446 U/L (38-126); Anion Gap 9 mmol/L (4-12); Aspartate Amino Transferase 65 U/L (14-36); Bilirubin,Total 1.1 mg/dL (0.2-1.3); Blood Urea Nitrogen 69 mg/dL (7-17); Calcium 8.2 mg/dL (8.4-10.2); Carbon Dioxide 21 mmol/L (22-30); Chloride 100 mmol/L (98-107); Estimated CRCL calculation 9 ml/min; Estimated Glomerular Filt Rate 9; Glucose 111 mg/dL (65-110); Magnesium 2.2 mg/dL (1.6-2.3); Potassium 4.5 mmol/L (3.4-5.0); Sodium 130 mmol/L (137-145); Total Protein 5.6 g/dL (6.3-8.2)
[2024-10-18 06:23] LABS: INR 2.1; Prothrombin Time 22.9 Seconds (11.1-14.7)
[2024-10-18] MEDS: IPRATROPIUM 0.5 MG/ALBUTEROL SULFATE 2.5 MG AMPUL.NEB 3 ML INHALATION ×3 (07:09→19:46)
--- NOTE | 2024-10-18 07:29 | P.PNIM_ITS ---
Progress Note: A&P Assessment and Plan (1) CHAD (acute kidney injury): Code(s): N17.9 - Acute kidney failure, unspecified Status: Acute Assessment and Plan: with fluid overload on temporary dialysis Nephrology following Trend creatinine monitor (2) Constipation: Code(s): K59.00 - Constipation, unspecified Status: Acute Assessment and Plan: Senna (3) Diabetes: Code(s): E11.9 - Type 2 diabetes mellitus without complications Status: Acute Assessment and Plan: Accu-Cheks q.6 SSI Hold home diabetes medications (4) Hypertension: Qualifiers: Hypertension type: unspecified Qualified Code(s): I10 - Essential (primary) hypertension Code(s): I10 - Essential (primary) hypertension Status: Chronic Assessment and Plan: home emds on hold as hypotensive (5) CHF (congestive heart failure): Code(s): I50.9 - Heart failure, unspecified Status: Acute Assessment and Plan: Last echo 2021 ejection fraction 55-60% cardiology on board (6) Atrial fibrillation with RVR: Code(s): I48.91 - Unspecified atrial fibrillation Status: Acute Assessment and Plan: new onset of afib Continue Cardizem 120mg and Eliquis 5mg bid po (7) Anemia: Code(s): D64.9 - Anemia, unspecified Status: Acute Assessment and Plan: Evidence of black tarry stool Hemoglobin dropped from 9.2-7.2 from yesterday 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 Previous history of a bleeding ulcer EGD morning Transfused 1 unit PRBC due to symptomatic anemia (syncope) (8) Nasal bleeding: Code(s): R04.0 - Epistaxis Status: Acute Assessment and Plan: Nasal clamp as needed Status post Afrin-soaked nasal pack No bleeding down posterior pharynx Possibly due to dry nasal nares from oxygen nasal cannula ED physician evaluated and following recommendation ENT consult Plan Ischemic hepatitis AST/ALT 4607/3007, today 134/517 Bili 3.9 now 1.8 Hep B antibody negative GI following Bronchospasm On duoneb treatment Reports intermitted nausea today QTc 511- so ideally avoid medication that could prolong it DVT prophylaxis on Eliquis Subjective Date/time seen: 10/18/24 07:29 Interval history: Patient had syncopal episode yesterday night possibly due to low blood pressure. Patient hemoglobin 7.1 yesterday and was transfused 1 unit due to symptomatic anemia. Patient under went EGD this morning but did not show any bleeding ulcer. ENT evaluated the patient and placed rhino rocket. Patient still has bleeding but stopped. Discussed with the Nephrology and possible consideration permanent dialysis by tomorrow. Patient will undergo thoracentesis tomorrow. Patient was initially admitted with the pancreatitis and increased LFT both of improved after fluid resuscitation but her creatinine is elevated and currently on temporary dialysis. Her epistaxis possibly due to drain nasal nares, and platelet dysfunction from renal failure and also multifactorial. Review of Systems Review of Systems: 12 systems were reviewed and are negativ e except for as per HPI. Exam Narrative: General: well appearing, appears stated age. HEENT: normocephalic, atraumatic. Mucous membranes moist. EOMI, PERRLA, bilateral sclera anicteric, no conjunctival injection. Neck supple without JVD, lymphadenopathy, or bruit. Respiratory: clear to ascultation bilaterally. No rales/rhonic/wheezes. Cardiovascular: normal S1-S2 upon ascultation. No murmurs, rubs, or clicks. PMI is nondisplaced, capillary refill less than 3 second. Abdomen: Soft, round, no pulsatile masses, nondistended and nontender. No r ebound, no guarding. No CVA tenderness, no hepatosplenomegaly. Bowel sounds present Extremities: No cyanosis, clubbing, or edema present. Pulses are palpable 2/2. Active ROM to all four extremities. Neuro: Alert and orientated x 4. PERRLA. Cranial nerves 2-12 intact without focal deficit. Skin: Warm, dry, and intact, without rash, erythema, or lesion. Psych: pleasant, cooperative, normal speech, normal affect, no hallucinations, no dysarthia Const: General: comfortable Objective Data Vital Signs Vital Signs: Vital Signs - 24 hr 10/17/24 08:00 10/17/24 08:00 10/17/24 09:16 Temperature 97 F L Pulse Rate 87 89 Respiratory Rate 18 Blood Pressure 114/72 Pulse Oximetry 100 95 Oxygen Delivery Room Air Oxygen Flow Rate Fraction of Inspired Oxygen 21 10/17/24 09:16 10/17/24 09:25 10/17/24 10:00 Temperature Pulse Rate 88 90 Respiratory Rate 16 16 Blood Pressure Pulse Oximetry 100 Oxygen Delivery Room Air Oxygen Flow Rate Fraction of Inspired Oxygen 10/17/24 12:00 10/17/24 12:00 10/17/24 14:55 Temperature 98.4 F Pulse Rate 93 87 Respiratory Rate 22 H Blood Pressure 138/61 Pulse Oximetry 100 93 Oxygen Delivery Room Air Oxygen Flow Rate Fraction of Inspired Oxygen 21 10/17/24 14:55 10/17/24 16:00 10/17/24 16:00 Temperature 97.8 F Pulse Rate 83 88 89 Respiratory Rate 20 20 Blood Pressure 130/66 Pulse Oximetry 98 Oxygen Delivery Oxygen Flow Rate Fraction of Inspired Oxygen 10/17/24 19:55 10/17/24 20:00 10/17/24 20:00 Temperature Pulse Rate 96 86 Respiratory Rate Blood Pressure 142/68 H Pulse Oximetry 100 100 Oxygen Delivery Nasal Cannula Nasal Cannula Oxygen Flow Rate 2 2 Fraction of Inspired Oxygen 10/17/24 20:56 10/17/24 21:40 10/17/24 21:55 Temperature 98.4 F 98.0 F 98.2 F Pulse Rate 84 84 84 Respiratory Rate 16 14 16 Blood Pressure 139/62 146/67 H 141/65 H Pulse Oximetry 100 99 100 Oxygen Delivery Oxygen Flow Rate Fraction of Inspired Oxygen 10/17/24 22:55 10/17/24 23:55 10/17/24 23:56 Temperature 97.8 F 98.0 F 98.0 F Pulse Rate 89 91 91 Respiratory Rate 14 16 16 Blood Pressure 133/72 141/85 H 141/85 H Pulse Oximetry 100 100 100 Oxygen Delivery Oxygen Flow Rate Fraction of Inspired Oxygen 10/18/24 00:00 10/18/24 00:52 10/18/24 04:00 Temperature 98.0 F Pulse Rate 92 83 94 Respiratory Rate 14 Blood Pressure 147/71 H Pulse Oximetry 100 Oxygen Delivery Oxygen Flow Rate Fraction of Inspired Oxygen 10/18/24 04:00 10/18/24 07:05 10/18/24 07:10 Temperature 97.9 F Pulse Rate 91 86 Respiratory Rate 16 16 Blood Pressure 150/71 H Pulse Oximetry 99 90 Oxygen Delivery Room Air Oxygen Flow Rate Fraction of Inspired Oxygen 21 Intake/Output Intake/Output: Intake & Output 10/15/24 10/16/24 10/17/24 10/18/24 23:59 23:59 23:59 23:59 Intake Total 763 910 8654 350 Output Total 3000 3000 200 Balance -2660 -2300 1210 150 Meds/Results Medications: Active Medications Generic Name Dose Route Start Last Admin Trade Name Freq PRN Reason Stop Dose Admin Acetaminophen 500 mg 10/10/24 23:07 10/17/24 22:44 Acetaminophen 500 Mg Tablet PO 500 mg Q6H PRN Administration Mild Pain (1-3) or Fever Albuterol/Ipratropium 3 ml 10/13/24 02:00 10/18/24 07:09 Ipratropium 0.5 Mg/Albuterol Sulfate 2.5 Mg Ampul.Neb 3 Ml INHALATION 3 ml Q6HRT JIGNA Administration Apixaban 5 mg 10/14/24 12:00 10/17/24 08:47 Apixaban 5 Mg Tablet PO 5 mg Q12HR JIGNA Administration Aspirin 81 mg 10/10/24 09:00 10/17/24 08:47 Aspirin 81 Mg Enteric Tablet PO 81 mg DAILY JIGNA Administration Buspirone HCl 5 mg 10/12/24 11:30 10/17/24 21:02 Buspirone Hcl 5 Mg Tablet PO 5 mg Q12HR JIGNA Administration Dextrose 12.5 gm 10/09/24 20:02 Dextrose 50% 25 Gm/50 Ml Syringe IV PUSH PRN PRN Hypoglycemia Protocol Diltiazem HCl 120 mg 10/11/24 12:00 10/17/24 08:47 Diltiazem Hcl Cd 120 Mg Cap.24hr PO 120 mg QAM JIGNA Administration Escitalopram Oxalate 20 mg 10/10/24 09:00 10/17/24 08:47 Escitalopram Oxalate 10 Mg Tablet PO 20 mg DAILY JIGNA Administration Glucagon 1 mg 10/09/24 20:02 Glucagon For Inj 1 Mg Vial IM PRN PRN Hypoglycemia Protocol Glucose 15 gm 10/09/24 20:02 Glucose Oral Gel 15 Gm Of Glucse In 37.5 Gm Tube PO PRN PRN Hypoglycemia Protocol Hydromorphone HCl 0.5 mg 10/10/24 00:28 10/16/24 22:34 Hydromorphone Hcl Inj (*Crx) 2 Mg/Ml Vial IV PUSH 0.5 mg Q3H PRN Administration Pain Rated 7-10 Dextrose 1,000 mls @ 100 mls/hr 10/09/24 20:02 Dextrose 5% 1,000 Ml IVPB PRN PRN Hypoglycemia Protocol Albumin Human 50 mls @ 999 mls/hr 10/12/24 12:35 Albutein IVPB 11/11/24 12:34 Q10M PRN HYPOTENSION Insulin Aspart 2 - 5 units 10/10/24 00:00 10/18/24 00:15 Insulin Aspart (*Bkc) 100 Units/Ml SUB-Q Not Given Q6HR JIGNA Protocol Levothyroxine Sodium 125 mcg 10/10/24 06:30 10/18/24 05:39 Levothyroxine Sodium 125 Mcg Tablet BY MOUTH Not Given Q48H JIGNA Levothyroxine Sodium 150 mcg 10/11/24 06:30 10/17/24 06:20 Levothyroxine Sodium 150 Mcg Tablet PO 150 mcg Q48H JIGNA Administration Montelukast Sodium 10 mg 10/09/24 21:35 10/17/24 21:02 Montelukast Sodium 10 Mg Tablet BY MOUTH 10 mg QHS JIGNA Administration Oxymetazoline HCl 1 spray 10/17/24 12:43 10/18/24 01:21 Oxymetazoline Hcl 0.05% Pete 15 Ml Btl (*Bkc) NASAL 1 spray Q12HR PRN Administration Dryness Pantoprazole Sodium 40 mg 10/18/24 09:00 Pantoprazole Sodium Iv 40 Mg Vial IV PUSH QAM JIGNA Prochlorperazine Maleate 5 mg 10/16/24 22:44 10/18/24 00:15 Prochlorperazine Maleate 5 Mg Tablet PO 5 mg Q6H PRN Administration Nausea And Vomiting Radiology Results: ITS Impressions Abdomen/Pelvis CT 10/09/24 16:08 IMPRESSION: Trace pericardial effusion. Scattered calcified and noncalcified sub-6 mm pulmonary nodules, likely representing granulomas. Mild inflammatory change surrounding the pancreatic head and uncinate process, correlate for clinical findings of pancreatitis. Mild inflammatory stranding/edema in the proximal bile ducts, presumably related to the pancreatic process, noting that ascending cholangitis could appear similarly. Mild dilation of the third and fourth portions of the duodenum, presumably ileus related to the pancreatic process. Abdomen X-Ray 10/10/24 06:55 Impression: No acute abnormality is seen. Irregular markedly hyperdense opacity in the pelvis. Correlate for surgical/procedural history or traumatic history/foreign body. Renal Ultrasound 10/10/24 11:35 Impression: Unremarkable ultrasound of the kidneys and urinary bladder. Chest X-Ray 10/16/24 11:13 Impression: 1: Improved asymmetric right-sided airspace disease which may represent asymmetric edema or pneumonia. Chest CT 10/16/24 15:48 IMPRESSION: Large right and moderate left-sided pleural effusions with adjacent compressive atelectasis. Findings within the right middle and upper lobes suggesting asymmetric pulmonary edema. Small pericardial effusion. Labs Labs: Laboratory Results - last 24 hr 10/17/24 10/17/24 10/17/24 04:27 09:22 09:34 WBC RBC Hgb Hct MCV MCH MCHC RDW Plt Count MPV Absolute Retic 0.06 Percent Retic 2.06 Immature Retic Fraction 32.9 H Retic Hgb Content 33.4 PT INR APTT Sodium Potassium Chloride Carbon Dioxide Anion Gap BUN Creatinine Estim Creat Clear Calc Estimated GFR Glucose POC Capillary Glucose Calcium Magnesium Iron 87 TIBC 285 % Saturation 31 Transferrin 200 L Ferritin 82.90 Total Bilirubin Direct Bilirubin 0.0 AST ALT Alkaline Phosphatase Lactate Dehydrogenase 273 H Total Protein Albumin Vitamin B12 > 1000.0 H Folate 15.3 TSH (Reflex) 4.780 H Free T4 1.15 Total T3 0.48 L Urine Eosinophils U Random Total Protein Ur Random Sodium Ur Random Urea Urine Creatinine Protein/Creat Ratio 2 Stl Occult Blood (IFOB) Blood Type O Positive Antibody Screen Negative LES, Poly Interpret Negative LES, Complement Interp Not Performed Indirect Antiglob Test Negative Crossmatch See Detail 10/17/24 10/17/24 10/17/24 13:47 15:18 19:03 WBC RBC Hgb 7.2 L 7.1 L Hct 22.4 L 22.4 L MCV MCH MCHC RDW Plt Count MPV Absolute Retic Percent Retic Immature Retic Fraction Retic Hgb Content PT INR APTT Sodium Potassium Chloride Carbon Dioxide Anion Gap BUN Creatinine Estim Creat Clear Calc Estimated GFR Glucose POC Capillary Glucose Calcium Magnesium Iron TIBC % Saturation Transferrin Ferritin Total Bilirubin Direct Bilirubin AST ALT Alkaline Phosphatase Lactate Dehydrogenase Total Protein Albumin Vitamin B12 Folate TSH (Reflex) Free T4 Total T3 Urine Eosinophils U Random Total Protein Ur Random Sodium Ur Random Urea Urine Creatinine Protein/Creat Ratio 2 Stl Occult Blood (IFOB) Positive H Blood Type Antibody Screen LES, Poly Interpret LES, Complement Interp Indirect Antiglob Test Crossmatch 10/17/24 10/17/24 10/17/24 19:46 19:59 19:59 WBC RBC Hgb Hct MCV MCH MCHC RDW Plt Count MPV Absolute Retic Percent Retic Immature Retic Fraction Retic Hgb Content PT INR APTT Sodium Potassium Chloride Carbon Dioxide Anion Gap BUN Creatinine Estim Creat Clear Calc Estimated GFR Glucose POC Capillary Glucose 126 H Calcium Magnesium Iron TIBC % Saturation Transferrin Ferritin Total Bilirubin Direct Bilirubin AST ALT Alkaline Phosphatase Lactate Dehydrogenase Total Protein Albumin Vitamin B12 Folate TSH (Reflex) Free T4 Total T3 Urine Eosinophils None seen U Random Total Protein > 600 > 600 Ur Random Sodium 122 Ur Random Urea < 67 Urine Creatinine 11.0 Protein/Creat Ratio 2 Stl Occult Blood (IFOB) Blood Type Antibody Screen LES, Poly Interpret LES, Complement Interp Indirect Antiglob Test Crossmatch 10/17/24 10/17/24 10/18/24 19:59 23:58 02:04 WBC RBC Hgb 8.6 L Hct 26.9 L MCV MCH MCHC RDW Plt Count MPV Absolute Retic Percent Retic Immature Retic Fraction Retic Hgb Content PT 23.9 H INR 2.2 APTT 33.3 Sodium Potassium Chloride Carbon Dioxide Anion Gap BUN Creatinine Estim Creat Clear Calc Estimated GFR Glucose POC Capillary Glucose 111 H Calcium Magnesium Iron TIBC % Saturation Transferrin Ferritin Total Bilirubin Direct Bilirubin AST ALT Alkaline Phosphatase Lactate Dehydrogenase Total Protein Albumin Vitamin B12 Folate TSH (Reflex) Free T4 Total T3 Urine Eosinophils U Random Total Protein Ur Random Sodium Ur Random Urea Urine Creatinine 10.5 Protein/Creat Ratio 2 > 57.14 H Stl Occult Blood (IFOB) Blood Type Antibody Screen LES, Poly Interpret LES, Complement Interp Indirect Antiglob Test Crossmatch 10/18/24 10/18/24 05:23 05:42 WBC 10.9 H RBC 2.98 L Hgb 8.4 L Hct 26.5 L MCV 88.9 MCH 28.2 MCHC 31.7 L RDW 16.7 H Plt Count 253 MPV 9.9 Absolute Retic Percent Retic Immature Retic Fraction Retic Hgb Content PT 22.9 H INR 2.1 APTT Sodium 130 L Potassium 4.5 Chloride 100 Carbon Dioxide 21 L Anion Gap 9 BUN 69 H D Creatinine 4.75 H Estim Creat Clear Calc 9 Estimated GFR 9 L Glucose 111 H POC Capillary Glucose 100 Calcium 8.2 L Magnesium 2.2 Iron TIBC % Saturation Transferrin Ferritin Total Bilirubin 1.1 Direct Bilirubin AST 65 H ALT 160 H Alkaline Phosphatase 446 H Lactate Dehydrogenase Total Protein 5.6 L Albumin 3.0 L Vitamin B12 Folate TSH (Reflex) Free T4 Total T3 Urine Eosinophils U Random Total Protein Ur Random Sodium Ur Random Urea Urine Creatinine Protein/Creat Ratio 2 Stl Occult Blood (IFOB) Blood Type Antibody Screen LES, Poly Interpret LES, Complement Interp Indirect Antiglob Test Crossmatch Quality VTE Prophylaxis VTE prophylaxis: mechanical ordered Hospitalist MIPS Advance Care Plan I have confirmed that the patient's Advanced Care Plan is present, code status is documented, or surrogate decision maker is listed in patient medical record.: Yes Medication Reconciliation I have utilized all available resources to obtain, update and review the patients current medications (includes all prescriptions, OTC, herbals, cannabis, and nutritional supplements).: Yes
[2024-10-18 10:02] LABS: Glucose Point of Care 100 mg/dl (65-105)
[2024-10-18] MEDS: SODIUM CHLORIDE 0.9% IV 500 ML 10 ML IV CONT (10:02)
--- NOTE | 2024-10-18 10:17 | P.CONS_ITS ---
Assessment and Plan Assessment and plan (1) Nasal bleeding: Code(s): R04.0 - Epistaxis Status: Acute Plan Allyson has multiple other medical issues but ENT consulted for left sided epistaxis. Rhinorocket placed. No active bleeding. LIkely secondary to anticoagulation and nasal cannula drying out the nares. Agree with nasal saline and afrin use prn. Will plan on leaving pack in place until or Friday depending on how she does. Call ENT if there is further bleeding. HPI Data of Consult Date/Time: 10/18/24 10:17 Requesting Physician: Cinda Bliss MD Primary Care Provider: Felix Powell MD Consult Narrative Reason for consult: epistaxis Narrative: Allyson Tello is a 78 year old female on anticoagulation, nasal cannula (currently on room air) who was having epistaxis. Admitted with anemia and concern for GI bleed. ENT consulted as she was having slow level of oozing on the left, afrin and nasal clamping has been only intermittently helpful. Review of Systems 2 Review of Systems: All systems reviewed & are unremarkable except as noted in HPI and below PMFSH Past Medical History Medical History Nasal bleeding Acute on chronic anemia Melena BMI 25.0-25.9,adult BMI 31.0-31.9,adult BMI 26.0-26.9,adult BMI 27.0-27.9,adult Diastolic heart failure Diverticulitis BMI 29.0-29.9,adult Fatty liver Olecranon bursitis of left elbow Chronic back pain Suspected chronic obstructive pulmonary disease based on initial evaluation Pneumonia Asthma exacerbation in COPD Thyroid cancer Coronary artery disease [place] in 2010 status post stent x2. Polymyalgia rheumatica Left bundle branch block Degenerative joint disease Type 2 diabetes mellitus Fibromyalgia Hypertension Hypothyroidism Familial tremor Anxiety with depression Vitamin D deficiency Hyperlipidemia Hearing loss Orthostatic hypotension Surgical History Surgical History History of epidermal inclusion cyst excision Left neck. History of hysterectomy History of coronary artery stent placement History of cholecystectomy History of partial thyroidectomy History of colonoscopy with polypectomy History of breast biopsy Family History Family History Grandparent Diabetes mellitus Mother Hypertension Heart disease Ovarian cancer Father Malignant neoplasm of prostate Cerebrovascular accident Daughter Breast cancer Social History Social History Social History: Surrogate medical decision maker: Allen Tello, spouse. Code status: Full code. Smoking packs per day: 1 Smoking cigarettes per day: 20.0 Smoking status: Former smoker Tobacco type: cigarettes Second hand tobacco smoke exposure: Yes Smoking end date: 02/24/99 Alcohol intake: never Substance use: current Substance use type: marijuana Other substance usage details: tea Last use: 8 mos ago Do You Feel Safe in your Home?: Yes Lack of Transportation: No Lack of Food: Never True Current Housing: I Have Housing Concerned About Future Housing: No Difficulty Paying Gas/Electric Bills: No Difficulty Paying for Meds: No Currently Unemployed: No Education: Trade/Vocational Certificate Difficulty w/ Childcare or Family Care: No Living arrangements: with family Additional living arrangements comments: Lives in [place] with spouse. Spiritual care concerns: No Meds Home Medications and Allergies Home Medications ?Medication ?Instructions ?Recorded ?Confirmed ?Type aspirin 81 mg tablet,delayed 81 mg PO DAILY 03/09/19 10/09/24 History release (Adult Low Dose Aspirin) cyanocobalamin (vitamin B-12) 1,000 mcg PO QPM 10/25/20 10/09/24 History 1,000 mcg tablet (Vitamin B-12) ascorbic acid (vitamin C) 1,000 mg 1 g PO QPM 10/03/21 10/09/24 History tablet cholecalciferol (vitamin D3) 25 2,000 unit PO DAILY 01/26/22 10/09/24 History mcg (1,000 unit) tablet omega-3 fatty acids 1,000 mg 1,000 mg PO QPM 01/26/22 10/09/24 History capsule turmeric 1,000 mg BYMOUTH DAILY 01/26/22 10/09/24 History biotin 300 mcg tablet 300 mg BYMOUTH DAILY 02/23/24 10/09/24 History Folate 1,330 mg PO DAILY 03/15/24 10/09/24 History calcium 600 mg capsule 1,200 mg PO HS 03/15/24 10/09/24 History calcium polycarbophil 625 mg 625 mg PO DAILY 03/15/24 10/09/24 History tablet (Fiber (calcium polycarbophil)) escitalopram oxalate 20 mg tablet See Rx Instructions .Route 05/19/24 10/09/24 Rx .COMPLEX #90 tabs levothyroxine 150 mcg tablet 150 mcg PO EVERY OTHER DAY #45 tabs 06/14/24 10/09/24 Rx losartan 50 mg tablet 50 mg PO DAILY #90 tabs 06/17/24 10/09/24 Rx levothyroxine 125 mcg tablet See Rx Instructions .Route 07/05/24 10/09/24 Rx .COMPLEX #90 tabs metformin 500 mg tablet,extended See Rx Instructions .Route 08/16/24 10/09/24 Rx release 24 hr .COMPLEX #360 tabs empagliflozin 25 mg tablet 25 mg PO DAILY #90 tabs 09/06/24 10/09/24 Rx (Jardiance) linagliptin 5 mg tablet (Tradjenta) 5 mg PO QAM #90 tabs 09/06/24 10/09/24 Rx levofloxacin 750 mg tablet 750 mg PO Q24H 10/09/24 10/09/24 History metronidazole 500 mg tablet 500 mg PO Q8H 10/09/24 10/09/24 History montelukast 10 mg tablet See Rx Instructions .Route 10/18/24 Rx .COMPLEX #90 tabs rosuvastatin 40 mg tablet See Rx Instructions .Route 10/18/24 Rx .COMPLEX #90 tabs Allergies Allergy/AdvReac Type Severity Reaction Status Date / Time adhesive tape Allergy Intermediate Rash Verified 10/18/24 09:49 Iodinated Contrast Media Allergy Mild Hives Verified 10/18/24 09:49 iodine Allergy Unknown Hives Verified 10/18/24 09:49 codeine AdvReac Unknown Hallucinati Verified 10/18/24 09:49 ng morphine AdvReac Unknown Hallucinati Verified 10/18/24 09:49 ng Vital Signs Vital Signs - 24 hr 10/17/24 12:00 10/17/24 12:00 10/17/24 14:55 Temperature 36.9 C Pulse Rate 93 87 Respiratory Rate 22 H Blood Pressure 138/61 Pulse Oximetry 100 93 Oxygen Delivery Room Air Oxygen Flow Rate Fraction of Inspired Oxygen 21 10/17/24 14:55 10/17/24 16:00 10/17/24 16:00 Temperature 36.6 C Pulse Rate 83 88 89 Respiratory Rate 20 20 Blood Pressure 130/66 Pulse Oximetry 98 Oxygen Delivery Oxygen Flow Rate Fraction of Inspired Oxygen 10/17/24 19:55 10/17/24 20:00 10/17/24 20:00 Temperature Pulse Rate 96 86 Respiratory Rate Blood Pressure 142/68 H Pulse Oximetry 100 100 Oxygen Delivery Nasal Cannula Nasal Cannula Oxygen Flow Rate 2 2 Fraction of Inspired Oxygen 10/17/24 20:56 10/17/24 21:40 10/17/24 21:55 Temperature 36.9 C 36.7 C 36.8 C Pulse Rate 84 84 84 Respiratory Rate 16 14 16 Blood Pressure 139/62 146/67 H 141/65 H Pulse Oximetry 100 99 100 Oxygen Delivery Oxygen Flow Rate Fraction of Inspired Oxygen 10/17/24 22:55 10/17/24 23:55 10/17/24 23:56 Temperature 36.6 C 36.7 C 36.7 C Pulse Rate 89 91 91 Respiratory Rate 14 16 16 Blood Pressure 133/72 141/85 H 141/85 H Pulse Oximetry 100 100 100 Oxygen Delivery Oxygen Flow Rate Fraction of Inspired Oxygen 10/18/24 00:00 10/18/24 00:52 10/18/24 04:00 Temperature 36.7 C Pulse Rate 92 83 94 Respiratory Rate 14 Blood Pressure 147/71 H Pulse Oximetry 100 Oxygen Delivery Oxygen Flow Rate Fraction of Inspired Oxygen 10/18/24 04:00 10/18/24 07:05 10/18/24 07:10 Temperature 36.6 C Pulse Rate 91 86 Respiratory Rate 16 16 Blood Pressure 150/71 H Pulse Oximetry 99 90 Oxygen Delivery Room Air Oxygen Flow Rate Fraction of Inspired Oxygen 21 10/18/24 07:18 10/18/24 08:54 10/18/24 09:53 Temperature 36.1 C L 36.6 C Pulse Rate 83 92 94 Respiratory Rate 16 18 18 Blood Pressure 138/67 150/70 H Pulse Oximetry 98 96 Oxygen Delivery Room Air Oxygen Flow Rate Fraction of Inspired Oxygen Exam 2 Narrative: Did not see active bleeding. Mild right septald eviation. crusting on the right nares, but pt and have insisted on left epistaxis throughout the last week. Rhinorocket placed (5.5cm) without difficulty. Did not see any bleeding during encounter. rest of exam noncontributory. Results Labs 10/18/24 05:23 10/18/24 05:23 Labs: Short CBC 10/17/24 10/17/24 10/18/24 Range/Units 13:47 19:03 02:04 WBC (4.5-10.0) K/mm3 Hgb 7.2 L 7.1 L 8.6 L (12.0-15.0) g/dL Hct 22.4 L 22.4 L 26.9 L (37.0-47.0) % Plt Count (150-375) k/mm3 10/18/24 Range/Units 05:23 WBC 10.9 H (4.5-10.0) K/mm3 Hgb 8.4 L (12.0-15.0) g/dL Hct 26.5 L (37.0-47.0) % Plt Count 253 (150-375) k/mm3 BMP 10/18/24 05:23 Sodium 130 L Potassium 4.5 Chloride 100 Carbon Dioxide 21 L BUN 69 H D Creatinine 4.75 H Glucose 111 H Calcium 8.2 L Liver Function 10/18/24 Range/Units 05:23 Total Bilirubin 1.1 (0.2-1.3) mg/dL AST 65 H (14-36) U/L ALT 160 H (6-35) U/L Alkaline Phosphatase 446 H (38-126) U/L Albumin 3.0 L (3.5-5.1) g/dL
--- NOTE | 2024-10-18 10:21 | WPDANESEPPF ---
Anes - Initial Pre Proc Eval Procedure: Operation Date: 10/18/24 15:30 Proposed Procedures p Esophagogastroduodenoscopy - Mickey Cobos MD Date/Time: 10/18/24 10:21 Surgeon: Cinda Bliss MD Pre Op Diagnosis: CHAD, Pancreatitis Patient Data Age: 78 Gender: F Height: 1.7 m Weight: 69 kg Last Vital Signs Temp 36.6 C 10/18/24 09:53 Pulse 94 10/18/24 09:53 Resp 18 10/18/24 09:53 BP 150/70 H 10/18/24 09:53 Pulse Ox 96 10/18/24 09:53 O2 Del Method Room Air 10/18/24 09:53 O2 Flow Rate 2 10/17/24 20:00 FiO2 21 10/18/24 07:10 Allergies Allergy/AdvReac Type Severity Reaction Status Date / Time adhesive tape Allergy Intermediate Rash Verified 10/18/24 09:49 Iodinated Contrast Media Allergy Mild Hives Verified 10/18/24 09:49 iodine Allergy Unknown Hives Verified 10/18/24 09:49 codeine AdvReac Unknown Hallucinati Verified 10/18/24 09:49 ng morphine AdvReac Unknown Hallucinati Verified 10/18/24 09:49 ng Home Medications ?Medication ?Instructions ?Recorded ?Confirmed ?Type aspirin 81 mg tablet,delayed 81 mg PO DAILY 03/09/19 10/09/24 History release (Adult Low Dose Aspirin) cyanocobalamin (vitamin B-12) 1,000 mcg PO QPM 10/25/20 10/09/24 History 1,000 mcg tablet (Vitamin B-12) ascorbic acid (vitamin C) 1,000 mg 1 g PO QPM 10/03/21 10/09/24 History tablet cholecalciferol (vitamin D3) 25 2,000 unit PO DAILY 01/26/22 10/09/24 History mcg (1,000 unit) tablet omega-3 fatty acids 1,000 mg 1,000 mg PO QPM 01/26/22 10/09/24 History capsule turmeric 1,000 mg BYMOUTH DAILY 01/26/22 10/09/24 History biotin 300 mcg tablet 300 mg BYMOUTH DAILY 02/23/24 10/09/24 History Folate 1,330 mg PO DAILY 03/15/24 10/09/24 History calcium 600 mg capsule 1,200 mg PO HS 03/15/24 10/09/24 History calcium polycarbophil 625 mg 625 mg PO DAILY 03/15/24 10/09/24 History tablet (Fiber (calcium polycarbophil)) escitalopram oxalate 20 mg tablet See Rx Instructions .Route 05/19/24 10/09/24 Rx .COMPLEX #90 tabs levothyroxine 150 mcg tablet 150 mcg PO EVERY OTHER DAY #45 tabs 06/14/24 10/09/24 Rx losartan 50 mg tablet 50 mg PO DAILY #90 tabs 06/17/24 10/09/24 Rx levothyroxine 125 mcg tablet See Rx Instructions .Route 07/05/24 10/09/24 Rx .COMPLEX #90 tabs metformin 500 mg tablet,extended See Rx Instructions .Route 08/16/24 10/09/24 Rx release 24 hr .COMPLEX #360 tabs empagliflozin 25 mg tablet 25 mg PO DAILY #90 tabs 09/06/24 10/09/24 Rx (Jardiance) linagliptin 5 mg tablet (Tradjenta) 5 mg PO QAM #90 tabs 09/06/24 10/09/24 Rx levofloxacin 750 mg tablet 750 mg PO Q24H 10/09/24 10/09/24 History metronidazole 500 mg tablet 500 mg PO Q8H 10/09/24 10/09/24 History montelukast 10 mg tablet See Rx Instructions .Route 10/18/24 Rx .COMPLEX #90 tabs rosuvastatin 40 mg tablet See Rx Instructions .Route 10/18/24 Rx .COMPLEX #90 tabs Laboratory Tests 10/17/24 10/17/24 10/17/24 09:22 09:34 13:47 WBC RBC Hgb 7.2 L g/dL (12.0-15.0) Hct 22.4 L % (37.0-47.0) MCV MCH MCHC RDW Plt Count MPV PT INR APTT Sodium Potassium Chloride Carbon Dioxide Anion Gap BUN Creatinine Estim Creat Clear Calc Estimated GFR Glucose POC Capillary Glucose Calcium Magnesium Ferritin 82.90 ng/mL (11.1-264) Total Bilirubin AST ALT Alkaline Phosphatase Total Protein Albumin Vitamin B12 > 1000.0 H pg/mL (239-931) Folate 15.3 ng/mL (2.76->20) TSH (Reflex) 4.780 H uIU/mL (0.465-4.68) Free T4 1.15 ng/dL (0.78-2.19) Total T3 0.48 L NG/ML (0.82-1.58) Urine Eosinophils Ur Random Creatinine U Random Total Protein Ur Random Sodium Ur Random Urea Urine Creatinine Protein/Creatinin Ratio Protein/Creat Ratio 2 Urine Albumin U Nzyex-2-Vtkgxtlk U Bryog-1-Ddapgbcj U Beta Globulin U Gamma Globulin Urine PEP Interpret Stl Occult Blood (IFOB) Urine Immunofixation Blood Type O Positive Antibody Screen Negative LES, Poly Interpret Negative LES, Complement Interp Not Performed Indirect Antiglob Test Negative Crossmatch See Detail 10/17/24 10/17/24 10/17/24 15:18 19:03 19:46 WBC RBC Hgb 7.1 L g/dL (12.0-15.0) Hct 22.4 L % (37.0-47.0) MCV MCH MCHC RDW Plt Count MPV PT INR APTT Sodium Potassium Chloride Carbon Dioxide Anion Gap BUN Creatinine Estim Creat Clear Calc Estimated GFR Glucose POC Capillary Glucose 126 H mg/dl (65-105) Calcium Magnesium Ferritin Total Bilirubin AST ALT Alkaline Phosphatase Total Protein Albumin Vitamin B12 Folate TSH (Reflex) Free T4 Total T3 Urine Eosinophils Ur Random Creatinine U Random Total Protein Ur Random Sodium Ur Random Urea Urine Creatinine Protein/Creatinin Ratio Protein/Creat Ratio 2 Urine Albumin U Yfcdp-9-Bgqporel U Xxnza-9-Dcgddsaf U Beta Globulin U Gamma Globulin Urine PEP Interpret Stl Occult Blood (IFOB) Positive H (N) Urine Immunofixation Blood Type Antibody Screen LES, Poly Interpret LES, Complement Interp Indirect Antiglob Test Crossmatch 10/17/24 10/17/24 10/17/24 19:59 19:59 19:59 WBC RBC Hgb Hct MCV MCH MCHC RDW Plt Count MPV PT INR APTT Sodium Potassium Chloride Carbon Dioxide Anion Gap BUN Creatinine Estim Creat Clear Calc Estimated GFR Glucose POC Capillary Glucose Calcium Magnesium Ferritin Total Bilirubin AST ALT Alkaline Phosphatase Total Protein Albumin Vitamin B12 Folate TSH (Reflex) Free T4 Total T3 Urine Eosinophils None seen % (None Seen) Ur Random Creatinine Pending U Random Total Protein > 600 mg/dL > 600 mg/dL Pending Ur Random Sodium 122 meq/L Ur Random Urea < 67 MG/DL Urine Creatinine 11.0 mg/dL Protein/Creatinin Ratio Protein/Creat Ratio 2 Urine Albumin U Bmrbv-6-Pgvzicfj U Nozux-0-Yuuustgi U Beta Globulin U Gamma Globulin Urine PEP Interpret Stl Occult Blood (IFOB) Urine Immunofixation Blood Type Antibody Screen LES, Poly Interpret LES, Complement Interp Indirect Antiglob Test Crossmatch 10/17/24 10/17/24 10/18/24 19:59 23:58 02:04 WBC RBC Hgb 8.6 L g/dL (12.0-15.0) Hct 26.9 L % (37.0-47.0) MCV MCH MCHC RDW Plt Count MPV PT 23.9 H Seconds (11.1-14.7) INR 2.2 APTT 33.3 Seconds (22.3-36.8) Sodium Potassium Chloride Carbon Dioxide Anion Gap BUN Creatinine Estim Creat Clear Calc Estimated GFR Glucose POC Capillary Glucose 111 H mg/dl (65-105) Calcium Magnesium Ferritin Total Bilirubin AST ALT Alkaline Phosphatase Total Protein Albumin Vitamin B12 Folate TSH (Reflex) Free T4 Total T3 Urine Eosinophils Ur Random Creatinine U Random Total Protein Ur Random Sodium Ur Random Urea Urine Creatinine 10.5 mg/dL Protein/Creatinin Ratio Pending Protein/Creat Ratio 2 > 57.14 H mg/mg (0-0.20) Urine Albumin Pending U Vydqy-8-Riovpkzr Pending U Kfhpu-3-Kmpkeahd Pending U Beta Globulin Pending U Gamma Globulin Pending Urine PEP Interpret Pending Stl Occult Blood (IFOB) Urine Immunofixation Pending Blood Type Antibody Screen LES, Poly Interpret LES, Complement Interp Indirect Antiglob Test Crossmatch 10/18/24 10/18/24 10/18/24 05:23 05:42 09:59 WBC 10.9 H K/mm3 (4.5-10.0) RBC 2.98 L M/mm3 (4.2-5.4) Hgb 8.4 L g/dL (12.0-15.0) Hct 26.5 L % (37.0-47.0) MCV 88.9 fl (80-100) MCH 28.2 pg (26-34) MCHC 31.7 L g/dl (32-36) RDW 16.7 H % (11.5-14.5) Plt Count 253 k/mm3 (150-375) MPV 9.9 fl (7.4-10.4) PT 22.9 H Seconds (11.1-14.7) INR 2.1 APTT Sodium 130 L mmol/L (137-145) Potassium 4.5 mmol/L (3.4-5.0) Chloride 100 mmol/L (98-107) Carbon Dioxide 21 L mmol/L (22-30) Anion Gap 9 mmol/L (4-12) BUN 69 H D mg/dL (7-17) Creatinine 4.75 H mg/dL (0.7-1.0) Estim Creat Clear Calc 9 ml/min Estimated GFR 9 L (59 - ) Glucose 111 H mg/dL (65-110) POC Capillary Glucose 100 mg/dl 100 mg/dl (65-105) (65-105) Calcium 8.2 L mg/dL (8.4-10.2) Magnesium 2.2 mg/dL (1.6-2.3) Ferritin Total Bilirubin 1.1 mg/dL (0.2-1.3) AST 65 H U/L (14-36) ALT 160 H U/L (6-35) Alkaline Phosphatase 446 H U/L (38-126) Total Protein 5.6 L g/dL (6.3-8.2) Albumin 3.0 L g/dL (3.5-5.1) Vitamin B12 Folate TSH (Reflex) Free T4 Total T3 Urine Eosinophils Ur Random Creatinine U Random Total Protein Ur Random Sodium Ur Random Urea Urine Creatinine Protein/Creatinin Ratio Protein/Creat Ratio 2 Urine Albumin U Nzuys-5-Znmarqop U Wfyxg-4-Splxdonh U Beta Globulin U Gamma Globulin Urine PEP Interpret Stl Occult Blood (IFOB) Urine Immunofixation Blood Type Antibody Screen LES, Poly Interpret LES, Complement Interp Indirect Antiglob Test Crossmatch Patient hx anesthesia problems: none Family hx anesthesia problems: none Results Review: All pre-operative results and documents have been reviewed as part of the pre-operative evaluation. [facility] Past Medical History Medical History Nasal bleeding Acute on chronic anemia Melena BMI 25.0-25.9,adult BMI 31.0-31.9,adult BMI 26.0-26.9,adult BMI 27.0-27.9,adult Diastolic heart failure Diverticulitis BMI 29.0-29.9,adult Fatty liver Olecranon bursitis of left elbow Chronic back pain Suspected chronic obstructive pulmonary disease based on initial evaluation Pneumonia Asthma exacerbation in COPD Thyroid cancer Coronary artery disease [place] in 2010 status post stent x2. Polymyalgia rheumatica Left bundle branch block Degenerative joint disease Type 2 diabetes mellitus Fibromyalgia Hypertension Hypothyroidism Familial tremor Anxiety with depression Vitamin D deficiency Hyperlipidemia Hearing loss Orthostatic hypotension Surgical History Surgical History History of epidermal inclusion cyst excision Left neck. History of hysterectomy History of coronary artery stent placement History of cholecystectomy History of partial thyroidectomy History of colonoscopy with polypectomy History of breast biopsy Family History Family History Grandparent Diabetes mellitus Mother Hypertension Heart disease Ovarian cancer Father Malignant neoplasm of prostate Cerebrovascular accident Daughter Breast cancer Social History Social History Social History: Surrogate medical decision maker: Allen Tlelo, spouse. Code status: Full code. Smoking packs per day: 1 Smoking cigarettes per day: 20.0 Smoking status: Former smoker Tobacco type: cigarettes Second hand tobacco smoke exposure: Yes Smoking end date: 02/24/99 Alcohol intake: never Substance use: current Substance use type: marijuana Other substance usage details: tea Last use: 8 mos ago Do You Feel Safe in your Home?: Yes Lack of Transportation: No Lack of Food: Never True Current Housing: I Have Housing Concerned About Future Housing: No Difficulty Paying Gas/Electric Bills: No Difficulty Paying for Meds: No Currently Unemployed: No Education: Trade/Vocational Certificate Difficulty w/ Childcare or Family Care: No Living arrangements: with family Additional living arrangements comments: Lives in [place] with spouse. Spiritual care concerns: No Anes - Eval Final PreProcedure Day of Procedure 10/18/24 10:21 Patient weight: normal Heart: regular rate and rhythm Lungs: decreased breath sounds Airway: Mallampati scale class II Neurological: other (alert) Last oral intake: >/= 8 hours ASA classification: IV Emergent: no Anesthetic plan: proceed Anesthesia type and monitoring: general GIVS and standard monitoring Results Review: All pre-operative results and documents have been reviewed as part of the pre-operative evaluation. Informed Consent: The patient's anesthetic plan and its attendant risks and benefits were discussed with the patient/family/POA. Questions were solicited and answers provided to the satisfaction of the patient/family/POA.
--- NOTE | 2024-10-18 11:33 | PCNFU ---
Nutrition Follow-Up Complete: Suboptimal po intake related to appetite as evidenced by pt report PO intake greater than 50% - Goal is not being met. Continue with same goal Goal: Pt current nutrition is NPO today for EGD, thoracentesis. Nutrition recommendation: Previous diet was full liquids. Advance diet as medically able. Renal diet is recommended. Ensure Enlive TID (350 kcal, 20 g protein) Last recorded weight is 69 kg. Bowel Motility: +3 Bms today 10/18 Labs Reviewed:Hgb 8.4, Hct 26.5, Alb 3.0, Na 130, BUN 69, Cre 4.75, Glu 111 Meds Noted: LR, novolog Skin: No skin issues Additional Notes: NPO for EGD and thoracentesis today. Appetite remains poor. Advance diet to previous when medically able Monitor intake, wt, labs. Follow up in 5 days.
[2024-10-18 11:48] LABS: Glucose Point of Care 88 mg/dl (65-105)
--- NOTE | 2024-10-18 11:50 | P.PNNP_ITS ---
Progress Note: A&P Assessment and Plan (1) CHAD (acute kidney injury): Code(s): N17.9 - Acute kidney failure, unspecified Status: Acute Assessment and Plan: * ongoing deterioration noted since admission * relatively normal creatinine at baseline * suspect multifactorial: * hypotension/hemodynamic instability * prerenal factors * ARB use prior to admission * Afib * other(?) * evaluation to date noted: * normal renal ultrasound * CPK normal * urine studies pending (anuric at this time) * admission UA noted * serologies negative to date * initiated on [facility]IE[facility] INSPECTOR/dialysis due to volume overload unresponsive to diuretic therapy * no critical electrolytes but issues with hyponatremia noted * fluid removal with HD as tolerated * follow respiratory status * HD on 10/12, 10/13, 10/14, and 10/16 * plan HD tomorrow * follow trend of repeat labs and UOP to assess for potential renal recovery (2) Acute hypoxic respiratory failure: Code(s): J96.01 - Acute respiratory failure with hypoxia Status: Chronic Assessment and Plan: * felt more related to renal failure than overt CHF * imaging to date with evidence of pulmonary edema/pleural effusions * ongoing fluid removal with HD as tolerated * monitor respiratory status * given CXR findings and tachypnea on 10/15, s/p DUF for further fluid removal * CT of chest (on 10/16) results noted: * large right and moderate left-sided pleural effusions with adjacent compressive atelectasis * given lack of improvement despite aggressive ultrafiltration, consider thoracentesis... * supplemental oxygen PRN (3) CHF (congestive heart failure): Code(s): I50.9 - Heart failure, unspecified Status: Acute Assessment and Plan: * recent Echo noted: * left ventricle is normal in size and systolic function * left ventricular ejection fraction is visually estimated to be 60-65% * paradoxical septal wall motion abnormality suggestive of bundle-branch block * right ventricle is normal in size and systolic function * no significant valvular abnormalities. * suspect volume overload/pulmonary edema/pleural effusion secondary to renal failure than CHF * failed trial of diuretic therapy * ongoing fluid removal with HD to acheive euvolemia (4) Anemia: Code(s): D64.9 - Anemia, unspecified Status: Acute Assessment and Plan: * related to CHAD and acute illness * drop in H/H noted by AM labs (10/17) * complicated by epitaxis and suspected GI bleed * anemia studies noted: * adequate iron stores * b12 and folate good * Epogen with HD * PRBC transfusion per protocol * GI to see again * holding Eliquis * follow trend of H/H (5) Atrial fibrillation with RVR: Code(s): I48.91 - Unspecified atrial fibrillation Status: Acute Assessment and Plan: * Cardiology recommendations noted * diltiazem for rate control * was on anticoagulation (Eliquis) - on hold due to #4 (6) Elevated liver enzymes: Code(s): R74.8 - Abnormal levels of other serum enzymes Status: Acute Assessment and Plan: * as noted on admission * slow improvement noted * thought to be related to altered hemodynamics/previous hypotension * GI following (7) Hypertension: Qualifiers: Hypertension type: unspecified Qualified Code(s): I10 - Essential (primary) hypertension Code(s): I10 - Essential (primary) hypertension Status: Chronic Assessment and Plan: * clinically better at this time * back on diltiazem (more so for rate control) * follow trend of hemodynamics (8) Diabetes: Code(s): E11.9 - Type 2 diabetes mellitus without complications Status: Acute Assessment and Plan: * follow accu-checks * glycemic control per hospitalist Will continue to follow. Subjective Date/time seen: 10/18/24 11:50 Interval history: Follow-up for acute kidney injury/acute renal failure (now requiring CHIEF INSPECTOR/hemodialysis). Rapid response yesterday evening due to near syncopal episode (never lost consciousness) attributed to relative hypotension and possibly anemia; transfused with 1 units of PRBCs; seen by ENT for ongoing epistaxis and rhino rocket placed; underwent EGD earlier this morning with no significant findings; renal function/creatinine remains abnormal and not making much urine. Exam Narrative: General: elderly and mildly ill-appearing female in NAD Heart: normal S1 and S2; no rub Lungs: coarse and decreased/diminished at bases Abdomen: soft, nontender, nondistended, positive bowel sounds Extremities: no cyanosis or clubbing; no edema Skin: no rash Objective Data Vital Signs Vital Signs: Vital Signs Temp Pulse Resp BP Pulse Ox O2 Del Method O2 Flow Rate 10/18/24 10:56 89 18 111/47 L 98 Room Air 10/18/24 10:49 88 18 106/44 L 100 Room Air 10/18/24 10:40 87 18 111/43 L 100 Room Air 10/18/24 09:53 97.9 F 94 18 150/70 H 96 Room Air 10/18/24 08:54 97.0 F L 92 18 138/67 98 10/18/24 08:00 95 10/18/24 08:00 98 Room Air 10/18/24 07:18 83 16 10/18/24 07:10 90 Room Air 10/18/24 07:05 86 16 10/18/24 04:00 97.9 F 91 16 150/71 H 99 10/18/24 04:00 94 10/18/24 00:52 98.0 F 83 14 147/71 H 100 10/18/24 00:00 92 10/17/24 23:56 98.0 F 91 16 141/85 H 100 10/17/24 23:55 98.0 F 91 16 141/85 H 100 10/17/24 22:55 97.8 F 89 14 133/72 100 10/17/24 21:55 98.2 F 84 16 141/65 H 100 10/17/24 21:40 98.0 F 84 14 146/67 H 99 10/17/24 20:56 98.4 F 84 16 139/62 100 10/17/24 20:00 86 10/17/24 20:00 100 Nasal Cannula 2 10/17/24 19:55 96 142/68 H 100 Nasal Cannula 2 Intake/Output Intake/Output: Intake & Output 10/15/24 10/16/24 10/17/24 10/18/24 23:59 23:59 23:59 23:59 Intake Total 770 806 2973 520 Output Total 3000 3000 200 Balance -2660 -2300 1210 320 Meds/Results Medications: Active Medications Generic Name Dose Route Start Last Admin Trade Name Freq PRN Reason Stop Dose Admin Acetaminophen 500 mg 10/10/24 23:07 10/17/24 22:44 Acetaminophen 500 Mg Tablet PO 500 mg Q6H PRN Administration Mild Pain (1-3) or Fever Albuterol/Ipratropium 3 ml 10/13/24 02:00 10/18/24 13:31 Ipratropium 0.5 Mg/Albuterol Sulfate 2.5 Mg Ampul.Neb 3 Ml INHALATION 3 ml Q6HRT JIGNA Administration Apixaban 5 mg 10/14/24 12:00 10/17/24 08:47 Apixaban 5 Mg Tablet PO 5 mg Q12HR JIGNA Administration Aspirin 81 mg 10/10/24 09:00 10/18/24 11:40 Aspirin 81 Mg Enteric Tablet PO Not Given DAILY JIGNA Buspirone HCl 5 mg 10/12/24 11:30 10/18/24 12:05 Buspirone Hcl 5 Mg Tablet PO 5 mg Q12HR JIGNA Administration Dextrose 12.5 gm 10/09/24 20:02 Dextrose 50% 25 Gm/50 Ml Syringe IV PUSH PRN PRN Hypoglycemia Protocol Diltiazem HCl 120 mg 10/11/24 12:00 10/18/24 12:05 Diltiazem Hcl Cd 120 Mg Cap.24hr PO 120 mg QAM JGINA Administration Escitalopram Oxalate 20 mg 10/10/24 09:00 10/17/24 08:47 Escitalopram Oxalate 10 Mg Tablet PO 20 mg DAILY JIGNA Administration Glucagon 1 mg 10/09/24 20:02 Glucagon For Inj 1 Mg Vial IM PRN PRN Hypoglycemia Protocol Glucose 15 gm 10/09/24 20:02 Glucose Oral Gel 15 Gm Of Glucse In 37.5 Gm Tube PO PRN PRN Hypoglycemia Protocol Hydromorphone HCl 0.5 mg 10/10/24 00:28 10/16/24 22:34 Hydromorphone Hcl Inj (*Crx) 2 Mg/Ml Vial IV PUSH 0.5 mg Q3H PRN Administration Pain Rated 7-10 Dextrose 1,000 mls @ 100 mls/hr 10/09/24 20:02 Dextrose 5% 1,000 Ml IVPB PRN PRN Hypoglycemia Protocol Albumin Human 50 mls @ 999 mls/hr 10/12/24 12:35 Albutein IVPB 11/11/24 12:34 Q10M PRN HYPOTENSION Sodium Chloride 500 mls @ 10 mls/hr 10/18/24 09:50 10/18/24 10:50 Normal Saline Iv IV CONT Infused .Q24H JIGAN Infusion Insulin Aspart 2 - 5 units 10/10/24 00:00 10/18/24 18:20 Insulin Aspart (*Bkc) 100 Units/Ml SUB-Q Not Given Q6HR [facility] Protocol Levothyroxine Sodium 125 mcg 10/10/24 06:30 10/18/24 05:39 Levothyroxine Sodium 125 Mcg Tablet BY MOUTH Not Given Q48H JIGNA Levothyroxine Sodium 150 mcg 10/11/24 06:30 10/17/24 06:20 Levothyroxine Sodium 150 Mcg Tablet PO 150 mcg Q48H JIGNA Administration Montelukast Sodium 10 mg 10/09/24 21:35 10/17/24 21:02 Montelukast Sodium 10 Mg Tablet BY MOUTH 10 mg QHS JIGNA Administration Oxymetazoline HCl 1 spray 10/17/24 12:43 10/18/24 01:21 Oxymetazoline Hcl 0.05% Pete 15 Ml Btl (*Bkc) NASAL 1 spray Q12HR PRN Administration Dryness Prochlorperazine Edisylate 10 mg 10/18/24 12:20 10/18/24 18:04 Prochlorperazine Edisylate 10 Mg/2 Ml Vial IV PUSH 10 mg Q6H PRN Administration Nausea And Vomiting Prochlorperazine Maleate 5 mg 10/16/24 22:44 10/18/24 00:15 Prochlorperazine Maleate 5 Mg Tablet PO 5 mg Q6H PRN Administration Nausea And Vomiting Radiology Results: ITS Impressions Abdomen/Pelvis CT 10/09/24 16:08 IMPRESSION: Trace pericardial effusion. Scattered calcified and noncalcified sub-6 mm pulmonary nodules, likely representing granulomas. Mild inflammatory change surrounding the pancreatic head and uncinate process, correlate for clinical findings of pancreatitis. Mild inflammatory stranding/edema in the proximal bile ducts, presumably related to the pancreatic process, noting that ascending cholangitis could appear similarly. Mild dilation of the third and fourth portions of the duodenum, presumably ileus related to the pancreatic process. Abdomen X-Ray 10/10/24 06:55 Impression: No acute abnormality is seen. Irregular markedly hyperdense opacity in the pelvis. Correlate for surgical/procedural history or traumatic history/foreign body. Renal Ultrasound 10/10/24 11:35 Impression: Unremarkable ultrasound of the kidneys and urinary bladder. Chest X-Ray 10/16/24 11:13 Impression: 1: Improved asymmetric right-sided airspace disease which may represent asymmetric edema or pneumonia. Chest CT 10/16/24 15:48 IMPRESSION: Large right and moderate left-sided pleural effusions with adjacent compressive atelectasis. Findings within the right middle and upper lobes suggesting asymmetric pulmonary edema. Small pericardial effusion. Labs Labs: Laboratory Tests 10/18/24 05:23 WBC 10.9 H Hgb 8.4 L Hct 26.5 L Plt Count 253 PT 22.9 H INR 2.1 Sodium 130 L Potassium 4.5 Chloride 100 Carbon Dioxide 21 L Anion Gap 9 BUN 69 H D Creatinine 4.75 H Estim Creat Clear Calc 9 Estimated GFR 9 L Glucose 111 H Calcium 8.2 L Magnesium 2.2 Total Bilirubin 1.1 AST 65 H ALT 160 H Alkaline Phosphatase 446 H Total Protein 5.6 L Albumin 3.0 L
[2024-10-18 11:52] LABS: Hematocrit 25.2 % (37.0-47.0); Hemoglobin 7.8 g/dL (12.0-15.0)
[2024-10-18] MEDS: PANTOPRAZOLE SODIUM IV 40 MG VIAL IV PUSH (12:05)
[2024-10-18] MEDS: busPIRone HCL 5 MG TABLET PO ×2 (12:05→20:55)
[2024-10-18] MEDS: dilTIAZem HCL CD 120 MG CAP.24HR PO (12:05)
[2024-10-18] MEDS: PROCHLORPERAZINE EDISYLATE 10 MG/2 ML VIAL IV PUSH ×2 (12:34→18:04)
[2024-10-18 12:47] LABS: Haptoglobin 172 mg/dL (43-212)
--- NOTE | 2024-10-18 13:43 | PCPTNOTE ---
Attempted to see patient for PT, patient sound asleep and in room. Patient's refused therapy session and seemed he did not want therapy to touch patient this date.
[2024-10-18 16:37] LABS: Protein, Total 4.3 g/dL (6.1-8.1)
[2024-10-18 18:47] LABS: Hemoglobin 6.4 g/dL (12.0-15.0)
[2024-10-18 18:48] LABS: Hematocrit 20.1 % (37.0-47.0)
[2024-10-18 19:01] LABS: Glucose Point of Care 84 mg/dl (65-105)
[2024-10-18] MEDS: SODIUM CHLORIDE 0.9% IV 250 ML 30 ML IV CONT (19:42)
[2024-10-18] MEDS: MONTELUKAST SODIUM 10 MG TABLET BY MOUTH (20:55)
[2024-10-19] VITALS (34 sets, daily range): BP systolic 91–166; BP diastolic 46–77; PULSE 79–95; RESP 14–16; TEMP 36.1–37; O2SAT 93–100
[2024-10-19 00:39] LABS: Glucose Point of Care 90 mg/dl (65-105)
[2024-10-19 01:04] LABS: Hematocrit 28.2 % (37.0-47.0); Hemoglobin 9.3 g/dL (12.0-15.0)
[2024-10-19 05:24] LABS: Hematocrit 27.8 % (37.0-47.0); Hemoglobin 9.1 g/dL (12.0-15.0); Mean Corpuscular HGB Conc 32.7 g/dl (32-36); Mean Corpuscular Hemoglobin 29.1 pg (26-34); Mean Corpuscular Volume 88.8 fl (80-100); Mean Platelet Volume 10.2 fl (7.4-10.4); Platelet Count Result 212 k/mm3 (150-375); Red Blood Count 3.13 M/mm3 (4.2-5.4); Red Cell Distribution Width 15.9 % (11.5-14.5); White Blood Count 11.7 K/mm3 (4.5-10.0)
[2024-10-19 05:35] LABS: Alanine Aminotransferase 109 U/L (6-35); Albumin Level 2.8 g/dL (3.5-5.1); Alkaline Phosphatase 344 U/L (38-126); Anion Gap 10 mmol/L (4-12); Aspartate Amino Transferase 40 U/L (14-36); Bilirubin,Total 0.9 mg/dL (0.2-1.3); Blood Urea Nitrogen 94 mg/dL (7-17); Calcium 8.3 mg/dL (8.4-10.2); Carbon Dioxide 20 mmol/L (22-30); Chloride 101 mmol/L (98-107); Estimated CRCL calculation 6 ml/min; Estimated Glomerular Filt Rate 6; Glucose 79 mg/dL (65-110); Potassium 4.8 mmol/L (3.4-5.0); Sodium 131 mmol/L (137-145); Total Protein 5.3 g/dL (6.3-8.2)
[2024-10-19 06:30] LABS: Glucose Point of Care 84 mg/dl (65-105)
[2024-10-19 07:19] LABS: Creatinine, Random Urine 13 mg/dL (20-275); Total Prot/Creat ratio mg/mg 51.538 (0.024-0.184); Total Protein/Creatinine Ratio 51538 mg/g creat (24-184)
[2024-10-19 08:00] LABS: Glucose Point of Care 88 mg/dl (65-105)
[2024-10-19 08:12] LABS: INR 1.4; Prothrombin Time 17.6 Seconds (11.1-14.7)
[2024-10-19] MEDS: IPRATROPIUM 0.5 MG/ALBUTEROL SULFATE 2.5 MG AMPUL.NEB 3 ML INHALATION ×3 (08:23→20:19)
--- NOTE | 2024-10-19 08:57 | PCOTNOTE ---
The patient treatment was not able to be completed. Out of room for HD. Will plan to continue treatment per plan of care.
[2024-10-19] MEDS: ALBUMIN HUMAN 25% 12.5 GM/50ML 50 ML IVPB (10:03)
--- NOTE | 2024-10-19 10:15 | P.PNNP_ITS ---
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 on [facility]/dialysis due to volume overload unresponsive to diuretic therapy * no critical electrolytes but issues with hyponatremia noted * fluid removal with HD as tolerated * follow respiratory status * HD today - continue T/T/S schedule for now * suspect will need ongoing dialytic support for a significant period of time... * consult Surgery for tunneled HD catheter placement * follow trend of repeat labs and UOP to assess for potential renal recovery (2) Acute hypoxic respiratory failure: Code(s): J96.01 - Acute respiratory failure with hypoxia Status: Chronic Assessment and Plan: * clinically better * felt more related to renal failure than overt CHF * imaging to date with evidence of pulmonary edema/pleural effusions * ongoing fluid removal with HD as tolerated * monitor respiratory status * given CXR findings and tachypnea on 10/15, s/p DUF for further fluid removal * CT of chest (on 10/16) results noted: * large right and moderate left-sided pleural effusions with adjacent compressive atelectasis * given lack of improvement despite aggressive ultrafiltration, consider thoracentesis... * supplemental oxygen PRN (3) CHF (congestive heart failure): Code(s): I50.9 - Heart failure, unspecified Status: Acute Assessment and Plan: * recent Echo noted: * left ventricle is normal in size and systolic function * left ventricular ejection fraction is visually estimated to be 60-65% * paradoxical septal wall motion abnormality suggestive of bundle-branch block * right ventricle is normal in size and systolic function * no significant valvular abnormalities. * suspect volume overload/pulmonary edema/pleural effusion secondary to renal failure than CHF * failed trial of diuretic therapy * ongoing fluid removal with HD to acheive/maintain euvolemia (4) Anemia: Code(s): D64.9 - Anemia, unspecified Status: Acute Assessment and Plan: * related to CHAD and acute illness * drop in H/H noted on 10/17 - blood transfusion following rapid response * drop in H/H further on 10/18 evening (received blood transfusion) * complicated by epistaxis * anemia studies noted: * adequate iron stores * B12 and folate good * Epogen with HD * PRBC transfusion per protocol * GI following intermittently * s/p EGD on 10/18 - no active bleeding lesions noted * holding Eliquis * follow trend of H/H (5) Atrial fibrillation with RVR: Code(s): I48.91 - Unspecified atrial fibrillation Status: Acute Assessment and Plan: * Cardiology recommendations noted * diltiazem for rate control * was on anticoagulation (Eliquis) - on hold due to #4 (6) Elevated liver enzymes: Code(s): R74.8 - Abnormal levels of other serum enzymes Status: Acute Assessment and Plan: * as noted on admission * slow improvement noted by trend * thought to be related to altered hemodynamics/previous hypotension * GI recommendations noted (7) Hypertension: Qualifiers: Hypertension type: unspecified Qualified Code(s): I10 - Essential (primary) hypertension Code(s): I10 - Essential (primary) hypertension Status: Chronic Assessment and Plan: * clinically better at this time * back on diltiazem (more so for rate control) * follow trend of hemodynamics (8) Diabetes: Code(s): E11.9 - Type 2 diabetes mellitus without complications Status: Acute Assessment and Plan: * follow accu-checks * glycemic control per hospitalist Will continue to follow. L Subjective Date/time seen: 10/19/24 10:15 Interval history: Follow-up for acute kidney injury/acute renal failure (now requiring [facility]/hemodialysis). Tolerating dialysis treatment at the time of my visit (seen on HD at 10:05AM); issues with hypotension noted so fluid removal/ultrafiltration has been decreased -- fluctuating blood flows with temporary HD catheter noted as well; still not making much urine and significant rise in BUN + creatinine without dialytic support by trend of labs; s/p EGD with no acute findings; drop in H/H noted yesterday prompting PRBC transfusion; epistaxis appears to be doing better. Exam 2 Narrative: General: elderly and mildly ill-appearing female in NAD Heart: normal S1 and S2; no rub Lungs: coarse and decreased/diminished at bases Abdomen: soft, nontender, nondistended, positive bowel sounds Extremities: no cyanosis or clubbing; no edema Skin: no nodules Objective Data Vital Signs Vital Signs: Vital Signs Temp Pulse Resp BP Pulse Ox O2 Del Method FiO2 10/19/24 10:15 87 117/60 10/19/24 10:00 93 106/57 L 10/19/24 09:56 94 91/46 L 10/19/24 09:45 93 103/63 10/19/24 09:30 93 115/63 10/19/24 09:16 85 151/72 H 10/19/24 09:03 97.7 F 87 16 155/77 H 10/19/24 08:34 86 16 10/19/24 08:24 95 16 10/19/24 08:24 96 Room Air 10/19/24 08:00 86 10/19/24 08:00 98.6 F 86 14 160/67 H 100 10/19/24 04:00 97.0 F L 91 16 137/58 L 93 10/19/24 04:00 79 10/19/24 00:00 85 10/19/24 00:00 97.3 F L 86 16 145/60 H 100 10/18/24 23:22 97.0 F L 88 18 144/57 H 99 10/18/24 22:55 97.0 F L 86 18 129/62 99 10/18/24 21:55 97.2 F L 86 20 130/53 L 98 10/18/24 21:40 97.1 F L 88 20 132/52 L 94 10/18/24 21:32 97.6 F 88 20 132/62 94 10/18/24 21:10 97.4 F L 88 16 136/55 L 93 10/18/24 20:10 97.1 F L 91 16 120/46 L 100 10/18/24 20:00 91 10/18/24 19:58 90 14 10/18/24 19:57 Room Air 10/18/24 19:55 97.1 F L 88 16 135/54 L 95 10/18/24 19:52 86 14 99 Room Air 21 10/18/24 19:46 86 14 10/18/24 19:40 97.1 F L 88 16 135/54 L 95 10/18/24 16:00 94 10/18/24 15:31 97.3 F L 88 18 128/62 100 10/18/24 14:00 80 16 10/18/24 13:30 82 16 Intake/Output Intake/Output: Intake & Output 10/16/24 10/17/24 10/18/24 10/19/24 23:59 23:59 23:59 23:59 Intake Total 700 1210 1220 50 Output Total 3000 200 Balance -2300 1210 1020 50 Meds/Results Medications: Active Medications Generic Name Dose Route Start Last Admin Trade Name Freq PRN Reason Stop Dose Admin Acetaminophen 500 mg 10/10/24 23:07 10/17/24 22:44 Acetaminophen 500 Mg Tablet PO 500 mg Q6H PRN Administration Mild Pain (1-3) or Fever Albuterol/Ipratropium 3 ml 10/13/24 02:00 10/19/24 08:23 Ipratropium 0.5 Mg/Albuterol Sulfate 2.5 Mg Ampul.Neb 3 Ml INHALATION 3 ml Q6HRT JIGNA Administration Apixaban 5 mg 10/14/24 12:00 10/17/24 08:47 Apixaban 5 Mg Tablet PO 5 mg Q12HR JIGNA Administration Aspirin 81 mg 10/10/24 09:00 10/18/24 11:40 Aspirin 81 Mg Enteric Tablet PO Not Given DAILY JIGNA Buspirone HCl 5 mg 10/12/24 11:30 10/18/24 20:55 Buspirone Hcl 5 Mg Tablet PO 5 mg Q12HR JIGNA Administration Dextrose 12.5 gm 10/09/24 20:02 Dextrose 50% 25 Gm/50 Ml Syringe IV PUSH PRN PRN Hypoglycemia Protocol Diltiazem HCl 120 mg 10/11/24 12:00 10/18/24 12:05 Diltiazem Hcl Cd 120 Mg Cap.24hr PO 120 mg QAM JIGNA Administration Escitalopram Oxalate 20 mg 10/10/24 09:00 10/17/24 08:47 Escitalopram Oxalate 10 Mg Tablet PO 20 mg DAILY JIGNA Administration Glucagon 1 mg 10/09/24 20:02 Glucagon For Inj 1 Mg Vial IM PRN PRN Hypoglycemia Protocol Glucose 15 gm 10/09/24 20:02 Glucose Oral Gel 15 Gm Of Glucse In 37.5 Gm Tube PO PRN PRN Hypoglycemia Protocol Hydromorphone HCl 0.5 mg 10/10/24 00:28 10/16/24 22:34 Hydromorphone Hcl Inj (*Crx) 2 Mg/Ml Vial IV PUSH 0.5 mg Q3H PRN Administration Pain Rated 7-10 Dextrose 1,000 mls @ 100 mls/hr 10/09/24 20:02 Dextrose 5% 1,000 Ml IVPB PRN PRN Hypoglycemia Protocol Albumin Human 50 mls @ 999 mls/hr 10/12/24 12:35 10/19/24 11:22 Albutein IVPB 11/11/24 12:34 Infused Q10M PRN Infusion HYPOTENSION Sodium Chloride 500 mls @ 10 mls/hr 10/18/24 09:50 10/18/24 10:50 Normal Saline Iv IV CONT Infused .Q24H JIGNA Infusion Insulin Aspart 2 - 5 units 10/10/24 00:00 10/19/24 12:35 Insulin Aspart (*Bkc) 100 Units/Ml SUB-Q Not Given Q6HR [facility] Protocol Levothyroxine Sodium 125 mcg 10/10/24 06:30 10/18/24 05:39 Levothyroxine Sodium 125 Mcg Tablet BY MOUTH Not Given Q48H JIGNA Levothyroxine Sodium 150 mcg 10/11/24 06:30 10/19/24 05:59 Levothyroxine Sodium 150 Mcg Tablet PO Not Given Q48H [facility] Miscellaneous Information 1 each 10/19/24 00:01 Please Renew Hydromorphone Hcl. Per [employer] Procedure, It Will Discontinue If Not Renewed XX 11/18/24 00:00 CLARIFY JIGNA Montelukast Sodium 10 mg 10/09/24 21:35 10/18/24 20:55 Montelukast Sodium 10 Mg Tablet BY MOUTH 10 mg QHS JIGNA Administration Oxymetazoline HCl 1 spray 10/17/24 12:43 10/18/24 01:21 Oxymetazoline Hcl 0.05% Pete 15 Ml Btl (*Bkc) NASAL 1 spray Q12HR PRN Administration Dryness Prochlorperazine Edisylate 10 mg 10/18/24 12:20 10/18/24 18:04 Prochlorperazine Edisylate 10 Mg/2 Ml Vial IV PUSH 10 mg Q6H PRN Administration Nausea And Vomiting Prochlorperazine Maleate 5 mg 10/16/24 22:44 10/18/24 00:15 Prochlorperazine Maleate 5 Mg Tablet PO 5 mg Q6H PRN Administration Nausea And Vomiting Radiology Results: ITS Impressions Abdomen/Pelvis CT 10/09/24 16:08 IMPRESSION: Trace pericardial effusion. Scattered calcified and noncalcified sub-6 mm pulmonary nodules, likely representing granulomas. Mild inflammatory change surrounding the pancreatic head and uncinate process, correlate for clinical findings of pancreatitis. Mild inflammatory stranding/edema in the proximal bile ducts, presumably related to the pancreatic process, noting that ascending cholangitis could appear similarly. Mild dilation of the third and fourth portions of the duodenum, presumably ileus related to the pancreatic process. Abdomen X-Ray 10/10/24 06:55 Impression: No acute abnormality is seen. Irregular markedly hyperdense opacity in the pelvis. Correlate for surgical/procedural history or traumatic history/foreign body. Renal Ultrasound 10/10/24 11:35 Impression: Unremarkable ultrasound of the kidneys and urinary bladder. Chest X-Ray 10/16/24 11:13 Impression: 1: Improved asymmetric right-sided airspace disease which may represent asymmetric edema or pneumonia. Chest CT 10/16/24 15:48 IMPRESSION: Large right and moderate left-sided pleural effusions with adjacent compressive atelectasis. Findings within the right middle and upper lobes suggesting asymmetric pulmonary edema. Small pericardial effusion. Labs Labs: Laboratory Tests 10/19/24 04:27 10/19/24 04:27 Calcium 8.3 L Total Bilirubin 0.9 AST 40 H ALT 109 H Alkaline Phosphatase 344 H Total Protein 5.3 L Albumin 2.8 L
--- NOTE | 2024-10-19 10:47 | PCPTNOTE ---
The patient treatment was not able to be completed this morning on 10/19/2024 due to patient in dialysis. Will plan to continue treatment per plan of care.
--- NOTE | 2024-10-19 11:35 | PCOTNOTE ---
Patient out od the room at this time. Patient is in dialysis
[2024-10-19] MEDS: EPOETIN ALFA-EPBX 20,000 UNITS/ML VIAL 20000 UNITS IV PUSH (11:46)
[2024-10-19 12:25] LABS: Glucose Point of Care 80 mg/dl (65-105)
--- NOTE | 2024-10-19 13:47 | PCPTNOTE ---
Attempted to see patient for PT, however patient was out of the room for testing.
[2024-10-19] MEDS: busPIRone HCL 5 MG TABLET PO ×2 (14:30→20:48)
[2024-10-19] MEDS: ASPIRIN 81 MG ENTERIC TABLET PO (14:30)
[2024-10-19] MEDS: dilTIAZem HCL CD 120 MG CAP.24HR PO (14:30)
[2024-10-19 14:48] LABS: Kappa\\Lambda Light Chains 1.09 (0.26-1.65); Lambda Light Chain 56.9 mg/L (5.7-26.3)
--- NOTE | 2024-10-19 17:22 | P.PNIM_ITS ---
Progress Note: A&P Assessment and Plan (1) CHAD (acute kidney injury): Code(s): N17.9 - Acute kidney failure, unspecified Status: Acute Assessment and Plan: with fluid overload on temporary dialysis The placement of a permanent dialysis catheter tomorrow Nephrology following Trend creatinine monitor (2) Constipation: Code(s): K59.00 - Constipation, unspecified Status: Acute Assessment and Plan: Senna (3) Diabetes: Code(s): E11.9 - Type 2 diabetes mellitus without complications Status: Acute Assessment and Plan: Accu-Cheks q.6 SSI Hold home diabetes medications (4) Hypertension: Qualifiers: Hypertension type: unspecified Qualified Code(s): I10 - Essential (primary) hypertension Code(s): I10 - Essential (primary) hypertension Status: Chronic Assessment and Plan: home emds on hold as hypotensive (5) CHF (congestive heart failure): Code(s): I50.9 - Heart failure, unspecified Status: Acute Assessment and Plan: Last echo 2021 ejection fraction 55-60% cardiology on board (6) Atrial fibrillation with RVR: Code(s): I48.91 - Unspecified atrial fibrillation Status: Acute Assessment and Plan: new onset of afib Continue Cardizem 120mg and holding Eliquis 5mg bid po due to epistaxis (7) Anemia: Code(s): D64.9 - Anemia, unspecified Status: Acute Assessment and Plan: Evidence of black tarry stool Hemoglobin dropped from 9.2-7.2 from yesterday 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 Previous history of a bleeding ulcer EGD no significant finding Transfused 2 unit PRBC due to symptomatic anemia (syncope) (8) Nasal bleeding: Code(s): R04.0 - Epistaxis Status: Acute Assessment and Plan: Nasal clamp as needed Status post Afrin-soaked nasal pack No bleeding down posterior pharynx Possibly due to dry nasal nares from oxygen nasal cannula ED physician evaluated and following recommendation ENT consult Plan Ischemic hepatitis AST/ALT 4607/3007, today 134/517 Bili 3.9 now 1.8 Hep B antibody negative GI following Bronchospasm On duoneb treatment Reports intermitted nausea today QTc 511- so ideally avoid medication that could prolong it DVT prophylaxis on Eliquis on hold due to epistaxis Subjective Date/time seen: 10/19/24 17:22 Interval history: Patient underwent dialysis. Due to significant reduction in the pleural e ffusion radiologist requested no thoracentesis. Possible placement of permanent dialysis catheter tomorrow by surgical team. Review of Systems Review of Systems: 12 systems were reviewed and are negativ e except for as per HPI. Exam Narrative: General: well appearing, appears stated age. HEENT: normocephalic, atraumatic. Mucous membranes moist. EOMI, PERRLA, bilateral sclera anicteric, no conjunctival injection. Neck supple without JVD, lymphadenopathy, or bruit. Respiratory: clear to ascultation bilaterally. No rales/rhonic/wheezes. Cardiovascular: normal S1-S2 upon ascultation. No murmurs, rubs, or clicks. PMI is nondisplaced, capillary refill less than 3 second. Abdomen: Soft, round, no pulsatile masses, nondistended and nontender. No rebound, no guarding. No CVA tenderness, no hepatosplenomegaly. Bowel sounds present Extremities: No cyanosis, clubbing, or edema present. Pulses are palpable 2/2. Active ROM to all four extremities. Neuro: Alert and orientated x 4. PERRLA. Cranial nerves 2-12 intact without focal deficit. Skin: Warm, dry, and intact, without rash, erythema, or lesion. Psych: pleasant, cooperative, normal speech, normal affect, no hallucinations, no dysarthia Const: General: comfortable Objective Data Vital Signs Vital Signs: Vital Signs - 24 hr 10/18/24 19:40 10/18/24 19:46 10/18/24 19:52 Temperature 97.1 F L Pulse Rate 88 86 86 Respiratory Rate 16 14 14 Blood Pressure 135/54 L Pulse Oximetry 95 99 Oxygen Delivery Room Air Fraction of Inspired Oxygen 21 10/18/24 19:55 10/18/24 19:57 10/18/24 19:58 Temperature 97.1 F L Pulse Rate 88 90 Respiratory Rate 16 14 Blood Pressure 135/54 L Pulse Oximetry 95 Oxygen Delivery Room Air Fraction of Inspired Oxygen 10/18/24 20:00 10/18/24 20:10 10/18/24 21:10 Temperature 97.1 F L 97.4 F L Pulse Rate 91 91 88 Respiratory Rate 16 16 Blood Pressure 120/46 L 136/55 L Pulse Oximetry 100 93 Oxygen Delivery Fraction of Inspired Oxygen 10/18/24 21:32 10/18/24 21:40 10/18/24 21:55 Temperature 97.6 F 97.1 F L 97.2 F L Pulse Rate 88 88 86 Respiratory Rate 20 20 20 Blood Pressure 132/62 132/52 L 130/53 L Pulse Oximetry 94 94 98 Oxygen Delivery Fraction of Inspired Oxygen 10/18/24 22:55 10/18/24 23:22 10/19/24 00:00 Temperature 97.0 F L 97.0 F L 97.3 F L Pulse Rate 86 88 86 Respiratory Rate 18 18 16 Blood Pressure 129/62 144/57 H 145/60 H Pulse Oximetry 99 99 100 Oxygen Delivery Fraction of Inspired Oxygen 10/19/24 00:00 10/19/24 04:00 10/19/24 04:00 Temperature 97.0 F L Pulse Rate 85 79 91 Respiratory Rate 16 Blood Pressure 137/58 L Pulse Oximetry 93 Oxygen Delivery Fraction of Inspired Oxygen 10/19/24 08:00 10/19/24 08:00 10/19/24 08:24 Temperature 98.6 F Pulse Rate 86 86 Respiratory Rate 14 Blood Pressure 160/67 H Pulse Oximetry 100 96 Oxygen Delivery Room Air Fraction of Inspired Oxygen 10/19/24 08:24 10/19/24 08:34 10/19/24 09:03 Temperature 97.7 F Pulse Rate 95 86 87 Respiratory Rate 16 16 16 Blood Pressure 155/77 H Pulse Oximetry Oxygen Delivery Fraction of Inspired Oxygen 10/19/24 09:16 10/19/24 09:30 10/19/24 09:45 Temperature Pulse Rate 85 93 93 Respiratory Rate Blood Pressure 151/72 H 115/63 103/63 Pulse Oximetry Oxygen Delivery Fraction of Inspired Oxygen 10/19/24 09:56 10/19/24 10:00 10/19/24 10:15 Temperature Pulse Rate 94 93 87 Respiratory Rate Blood Pressure 91/46 L 106/57 L 117/60 Pulse Oximetry Oxygen Delivery Fraction of Inspired Oxygen 10/19/24 10:30 10/19/24 10:45 10/19/24 11:00 Temperature Pulse Rate 88 86 86 Respiratory Rate Blood Pressure 120/61 132/63 132/62 Pulse Oximetry Oxygen Delivery Fraction of Inspired Oxygen 10/19/24 11:15 10/19/24 11:30 10/19/24 11:45 Temperature Pulse Rate 87 84 87 Respiratory Rate Blood Pressure 141/56 H 144/71 H 146/69 H Pulse Oximetry Oxygen Delivery Fraction of Inspired Oxygen 10/19/24 12:00 10/19/24 12:00 10/19/24 12:15 Temperature Pulse Rate 84 85 87 Respiratory Rate Blood Pressure 139/60 151/69 H Pulse Oximetry Oxygen Delivery Fraction of Inspired Oxygen 10/19/24 12:30 10/19/24 12:45 10/19/24 13:00 Temperature Pulse Rate 88 89 85 Respiratory Rate Blood Pressure 125/69 138/66 133/66 Pulse Oximetry Oxygen Delivery Fraction of Inspired Oxygen 10/19/24 13:07 10/19/24 13:15 10/19/24 14:00 Temperature 98.1 F Pulse Rate 80 93 Respiratory Rate 16 Blood Pressure 141/62 H 130/62 Pulse Oximetry Oxygen Delivery Room Air Fraction of Inspired Oxygen 10/19/24 14:33 10/19/24 14:41 Temperature Pulse Rate 90 91 Respiratory Rate 16 16 Blood Pressure Pulse Oximetry Oxygen Delivery Fraction of Inspired Oxygen Intake/Output Intake/Output: Intake & Output 10/16/24 10/17/24 10/18/24 10/19/24 23:59 23:59 23:59 23:59 Intake Total 700 1210 1220 50 Output Total 3000 200 1000 Balance -2300 1210 1020 -950 Meds/Results Medications: Active Medications Generic Name Dose Route Start Last Admin Trade Name Freq PRN Reason Stop Dose Admin Acetaminophen 500 mg 10/10/24 23:07 10/17/24 22:44 Acetaminophen 500 Mg Tablet PO 500 mg Q6H PRN Administration Mild Pain (1-3) or Fever Albuterol/Ipratropium 3 ml 10/13/24 02:00 10/19/24 14:33 Ipratropium 0.5 Mg/Albuterol Sulfate 2.5 Mg Ampul.Neb 3 Ml INHALATION 3 ml Q6HRT JIGNA Administration Apixaban 5 mg 10/14/24 12:00 10/17/24 08:47 Apixaban 5 Mg Tablet PO 5 mg Q12HR JIGNA Administration Aspirin 81 mg 10/10/24 09:00 10/19/24 14:30 Aspirin 81 Mg Enteric Tablet PO 81 mg DAILY JIGNA Administration Buspirone HCl 5 mg 10/12/24 11:30 10/19/24 14:30 Buspirone Hcl 5 Mg Tablet PO 5 mg Q12HR JIGNA Administration Dextrose 12.5 gm 10/09/24 20:02 Dextrose 50% 25 Gm/50 Ml Syringe IV PUSH PRN PRN Hypoglycemia Protocol Diltiazem HCl 120 mg 10/11/24 12:00 10/19/24 14:30 Diltiazem Hcl Cd 120 Mg Cap.24hr PO 120 mg QAM JIGNA Administration Escitalopram Oxalate 20 mg 10/10/24 09:00 10/17/24 08:47 Escitalopram Oxalate 10 Mg Tablet PO 20 mg DAILY JIGNA Administration Glucagon 1 mg 10/09/24 20:02 Glucagon For Inj 1 Mg Vial IM PRN PRN Hypoglycemia Protocol Glucose 15 gm 10/09/24 20:02 Glucose Oral Gel 15 Gm Of Glucse In 37.5 Gm Tube PO PRN PRN Hypoglycemia Protocol Hydromorphone HCl 0.5 mg 10/10/24 00:28 10/16/24 22:34 Hydromorphone Hcl Inj (*Crx) 2 Mg/Ml Vial IV PUSH 0.5 mg Q3H PRN Administration Pain Rated 7-10 Dextrose 1,000 mls @ 100 mls/hr 10/09/24 20:02 Dextrose 5% 1,000 Ml IVPB PRN PRN Hypoglycemia Protocol Albumin Human 50 mls @ 999 mls/hr 10/12/24 12:35 10/19/24 11:22 Albutein IVPB 11/11/24 12:34 Infused Q10M PRN Infusion HYPOTENSION Cefazolin Sodium 2 gm in 50 mls @ 100 mls/hr 10/20/24 08:00 Ancef 2 Gm/D5w 50 Ml IVPB 10/20/24 08:29 ONCE ONE Insulin Aspart 2 - 5 units 10/10/24 00:00 10/19/24 12:35 Insulin Aspart (*Bkc) 100 Units/Ml SUB-Q Not Given Q6HR [facility] Protocol Levothyroxine Sodium 125 mcg 10/10/24 06:30 10/18/24 05:39 Levothyroxine Sodium 125 Mcg Tablet BY MOUTH Not Given Q48H JIGNA Levothyroxine Sodium 150 mcg 10/11/24 06:30 10/19/24 05:59 Levothyroxine Sodium 150 Mcg Tablet PO Not Given Q48H [facility] Miscellaneous Information 1 each 10/19/24 00:01 Please Renew Hydromorphone Hcl. Per [employer] Procedure, It Will Discontinue If Not Renewed XX 11/18/24 00:00 CLARIFY JIGNA Montelukast Sodium 10 mg 10/09/24 21:35 10/18/24 20:55 Montelukast Sodium 10 Mg Tablet BY MOUTH 10 mg QHS JIGNA Administration Oxymetazoline HCl 1 spray 10/17/24 12:43 10/18/24 01:21 Oxymetazoline Hcl 0.05% Pete 15 Ml Btl (*Bkc) NASAL 1 spray Q12HR PRN Administration Dryness Prochlorperazine Edisylate 10 mg 10/18/24 12:20 10/18/24 18:04 Prochlorperazine Edisylate 10 Mg/2 Ml Vial IV PUSH 10 mg Q6H PRN Administration Nausea And Vomiting Prochlorperazine Maleate 5 mg 10/16/24 22:44 10/18/24 00:15 Prochlorperazine Maleate 5 Mg Tablet PO 5 mg Q6H PRN Administration Nausea And Vomiting Radiology Results: ITS Impressions Abdomen/Pelvis CT 10/09/24 16:08 IMPRESSION: Trace pericardial effusion. Scattered calcified and noncalcified sub-6 mm pulmonary nodules, likely representing granulomas. Mild inflammatory change surrounding the pancreatic head and uncinate process, correlate for clinical findings of pancreatitis. Mild inflammatory stranding/edema in the proximal bile ducts, presumably related to the pancreatic process, noting that ascending cholangitis could appear similarly. Mild dilation of the third and fourth portions of the duodenum, presumably ileus related to the pancreatic process. Abdomen X-Ray 10/10/24 06:55 Impression: No acute abnormality is seen. Irregular markedly hyperdense opacity in the pelvis. Correlate for surgical/procedural history or traumatic history/foreign body. Renal Ultrasound 10/10/24 11:35 Impression: Unremarkable ultrasound of the kidneys and urinary bladder. Chest X-Ray 10/16/24 11:13 Impression: 1: Improved asymmetric right-sided airspace disease which may represent asymmetric edema or pneumonia. Chest CT 10/16/24 15:48 IMPRESSION: Large right and moderate left-sided pleural effusions with adjacent compressive atelectasis. Findings within the right middle and upper lobes suggesting asymmetric pulmonary edema. Small pericardial effusion. Labs Labs: Laboratory Results - last 24 hr 10/17/24 10/17/24 10/17/24 04:27 09:22 19:59 WBC RBC Hgb Hct MCV MCH MCHC RDW Plt Count MPV PT INR Sodium Potassium Chloride Carbon Dioxide Anion Gap BUN Creatinine Estim Creat Clear Calc Estimated GFR Glucose POC Capillary Glucose Calcium Total Bilirubin AST ALT Alkaline Phosphatase Total Protein Albumin Ur Random Creatinine 13 L U Random Total Protein 670 H Protein/Creatinin Ratio 19646 H Urine Immunofixation PRETTY Screen Negative [place]/Lambda Ratio 1.09 Free [place] Light Chains 62.0 H Free Lambda Light Chain 56.9 H Blood Type O Positive Antibody Screen Negative Crossmatch See Detail 10/18/24 10/18/24 10/19/24 18:38 18:58 00:05 WBC RBC Hgb 6.4 L* Hct 20.1 L* MCV MCH MCHC RDW Plt Count MPV PT INR Sodium Potassium Chloride Carbon Dioxide Anion Gap BUN Creatinine Estim Creat Clear Calc Estimated GFR Glucose POC Capillary Glucose 84 90 Calcium Total Bilirubin AST ALT Alkaline Phosphatase Total Protein Albumin Ur Random Creatinine U Random Total Protein Protein/Creatinin Ratio Urine Immunofixation PRETTY Screen [place]/Lambda Ratio Free [place] Light Chains Free Lambda Light Chain Blood Type Antibody Screen Crossmatch 10/19/24 10/19/24 10/19/24 00:32 04:27 05:53 WBC 11.7 H RBC 3.13 L Hgb 9.3 L 9.1 L Hct 28.2 L 27.8 L MCV 88.8 MCH 29.1 MCHC 32.7 RDW 15.9 H Plt Count 212 MPV 10.2 PT INR Sodium 131 L Potassium 4.8 Chloride 101 Carbon Dioxide 20 L Anion Gap 10 BUN 94 H D Creatinine 6.38 H Estim Creat Clear Calc 6 Estimated GFR 6 L Glucose 79 POC Capillary Glucose 84 Calcium 8.3 L Total Bilirubin 0.9 AST 40 H ALT 109 H Alkaline Phosphatase 344 H Total Protein 5.3 L Albumin 2.8 L Ur Random Creatinine U Random Total Protein Protein/Creatinin Ratio Urine Immunofixation PRETTY Screen [place]/Lambda Ratio Free [place] Light Chains Free Lambda Light Chain Blood Type Antibody Screen Crossmatch 10/19/24 10/19/24 10/19/24 07:55 07:57 12:21 WBC RBC Hgb Hct MCV MCH MCHC RDW Plt Count MPV PT 17.6 H D INR 1.4 Sodium Potassium Chloride Carbon Dioxide Anion Gap BUN Creatinine Estim Creat Clear Calc Estimated GFR Glucose POC Capillary Glucose 88 80 Calcium Total Bilirubin AST ALT Alkaline Phosphatase Total Protein Albumin Ur Random Creatinine U Random Total Protein Protein/Creatinin Ratio Urine Immunofixation PRETTY Screen [place]/Lambda Ratio Free [place] Light Chains Free Lambda Light Chain Blood Type Antibody Screen Crossmatch Quality VTE Prophylaxis VTE prophylaxis: mechanical ordered Hospitalist MIPS Advance Care Plan I have confirmed that the patient's Advanced Care Plan is present, code status is documented, or surrogate decision maker is listed in patient medical record.: Yes Medication Reconciliation I have utilized all available resources to obtain, update and review the patients current medications (includes all prescriptions, OTC, herbals, cannabis, and nutritional supplements).: Yes
[2024-10-19 17:31] LABS: Glucose Point of Care 113 mg/dl (65-105)
--- NOTE | 2024-10-19 17:52 | P.PNAN_ITS ---
Anes - Prog Note Post-Op Date/Time: 10/19/24 17:52 Cardiovascular status: normal Respiratory status: normal Airway patency: baseline Mental status: baseline Post-Op hydration status: normal Vital Signs: Last Vital Signs Temp 36.7 C 10/19/24 13:15 Pulse 91 10/19/24 14:41 Resp 16 10/19/24 14:41 BP 130/62 10/19/24 13:15 Pulse Ox 96 10/19/24 08:24 O2 Del Method Room Air 10/19/24 14:00 O2 Flow Rate 2 10/17/24 20:00 FiO2 21 10/18/24 19:52 Pain Score (VAS): 0 I/O: Intake & Output 10/19/24 10/19/24 10/19/24 07:59 15:59 23:59 Intake Total 50 Output Total 1000 Balance -950 Laboratory Tests 10/19/24 04:27 10/19/24 04:27 10/17/24 10/17/24 10/17/24 04:27 09:22 19:59 WBC RBC Hgb Hct MCV MCH MCHC RDW Plt Count MPV PT INR Sodium Potassium Chloride Carbon Dioxide Anion Gap BUN Creatinine Estim Creat Clear Calc Estimated GFR Glucose POC Capillary Glucose Calcium Total Bilirubin AST ALT Alkaline Phosphatase Total Protein Albumin Ur Random Creatinine 13 L U Random Total Protein 670 H Protein/Creatinin Ratio 51888 H Urine Immunofixation PRETTY Screen Negative [place]/Lambda Ratio 1.09 Free [place] Light Chains 62.0 H Free [place]ambda Light Chain 56.9 H Blood Type O Positive Antibody Screen Negative Crossmatch See Detail 10/18/24 10/18/24 10/19/24 18:38 18:58 00:05 WBC RBC Hgb 6.4 L* Hct 20.1 L* MCV MCH MCHC RDW Plt Count MPV PT INR Sodium Potassium Chloride Carbon Dioxide Anion Gap BUN Creatinine Estim Creat Clear Calc Estimated GFR Glucose POC Capillary Glucose 84 90 Calcium Total Bilirubin AST ALT Alkaline Phosphatase Total Protein Albumin Ur Random Creatinine U Random Total Protein Protein/Creatinin Ratio Urine Immunofixation PRETTY Screen [place]/Lambda Ratio Free [place] Light Chains Free Lambda Light Chain Blood Type Antibody Screen Crossmatch 10/19/24 10/19/24 10/19/24 00:32 04:27 05:53 WBC 11.7 H RBC 3.13 L Hgb 9.3 L 9.1 L Hct 28.2 L 27.8 L MCV 88.8 MCH 29.1 MCHC 32.7 RDW 15.9 H Plt Count 212 MPV 10.2 PT INR Sodium 131 L Potassium 4.8 Chloride 101 Carbon Dioxide 20 L Anion Gap 10 BUN 94 H D Creatinine 6.38 H Estim Creat Clear Calc 6 Estimated GFR 6 L Glucose 79 POC Capillary Glucose 84 Calcium 8.3 L Total Bilirubin 0.9 AST 40 H ALT 109 H Alkaline Phosphatase 344 H Total Protein 5.3 L Albumin 2.8 L Ur Random Creatinine U Random Total Protein Protein/Creatinin Ratio Urine Immunofixation PRETTY Screen [place]/Lambda Ratio Free [place] Light Chains Free Lambda Light Chain Blood Type Antibody Screen Crossmatch 10/19/24 10/19/24 10/19/24 07:55 07:57 12:21 WBC RBC Hgb Hct MCV MCH MCHC RDW Plt Count MPV PT 17.6 H D INR 1.4 Sodium Potassium Chloride Carbon Dioxide Anion Gap BUN Creatinine Estim Creat Clear Calc Estimated GFR Glucose POC Capillary Glucose 88 80 Calcium Total Bilirubin AST ALT Alkaline Phosphatase Total Protein Albumin Ur Random Creatinine U Random Total Protein Protein/Creatinin Ratio Urine Immunofixation PRETTY Screen [place]/Lambda Ratio Free [place] Light Chains Free Lambda Light Chain Blood Type Antibody Screen Crossmatch 10/19/24 17:08 WBC RBC Hgb Hct MCV MCH MCHC RDW Plt Count MPV PT INR Sodium Potassium Chloride Carbon Dioxide Anion Gap BUN Creatinine Estim Creat Clear Calc Estimated GFR Glucose POC Capillary Glucose 113 H Calcium Total Bilirubin AST ALT Alkaline Phosphatase Total Protein Albumin Ur Random Creatinine U Random Total Protein Protein/Creatinin Ratio Urine Immunofixation PRETTY Screen [place]/Lambda Ratio Free [place] Light Chains Free Lambda Light Chain Blood Type Antibody Screen Crossmatch Post-procedural complaints: none Patient Feedback: Patient satisfied with anesthetic care.
[2024-10-19] MEDS: MONTELUKAST SODIUM 10 MG TABLET BY MOUTH (20:48)
[2024-10-19 21:34] LABS: Immunofixation, Serum Normal pattern.
[2024-10-20] VITALS (26 sets, daily range): BP systolic 119–162; BP diastolic 51–70; PULSE 62–90; RESP 10–20; TEMP 36.1–37.1; O2SAT 92–100
[2024-10-20 00:25] LABS: Glucose Point of Care 76 mg/dl (65-105)
[2024-10-20] MEDS: IPRATROPIUM 0.5 MG/ALBUTEROL SULFATE 2.5 MG AMPUL.NEB 3 ML INHALATION ×4 (01:57→20:30)
[2024-10-20 05:08] LABS: Hematocrit 26.6 % (37.0-47.0); Hemoglobin 8.5 g/dL (12.0-15.0); Mean Corpuscular Hemoglobin 29.3 pg (26-34); Mean Corpuscular Volume 91.7 fl (80-100); Mean Platelet Volume 10.7 fl (7.4-10.4); Platelet Count Result 215 k/mm3 (150-375); Red Cell Distribution Width 17.2 % (11.5-14.5); White Blood Count 9.1 K/mm3 (4.5-10.0)
[2024-10-20 05:33] LABS: Alanine Aminotransferase 83 U/L (6-35); Alkaline Phosphatase 267 U/L (38-126); Anion Gap 7 mmol/L (4-12); Aspartate Amino Transferase 37 U/L (14-36); Blood Urea Nitrogen 39 mg/dL (7-17); Calcium 8.1 mg/dL (8.4-10.2); Carbon Dioxide 26 mmol/L (22-30); Chloride 100 mmol/L (98-107); Estimated CRCL calculation 12 ml/min; Estimated Glomerular Filt Rate 13; Glucose 78 mg/dL (65-110); Sodium 133 mmol/L (137-145); Total Protein 5.4 g/dL (6.3-8.2)
[2024-10-20 06:52] LABS: Glucose Point of Care 76 mg/dl (65-105)
[2024-10-20] MEDS: PROCHLORPERAZINE EDISYLATE 10 MG/2 ML VIAL IV PUSH (07:20)
--- NOTE | 2024-10-20 07:41 | P.PNIM_ITS ---
Progress Note: A&P Assessment and Plan (1) CHAD (acute kidney injury): Code(s): N17.9 - Acute kidney failure, unspecified Status: Acute Assessment and Plan: with fluid overload on temporary dialysis The placement of a permanent dialysis catheter tomorrow Nephrology following Trend creatinine monitor (2) Constipation: Code(s): K59.00 - Constipation, unspecified Status: Acute Assessment and Plan: Senna (3) Diabetes: Code(s): E11.9 - Type 2 diabetes mellitus without complications Status: Acute Assessment and Plan: Accu-Cheks q.6 SSI Hold home diabetes medications (4) Hypertension: Qualifiers: Hypertension type: unspecified Qualified Code(s): I10 - Essential (primary) hypertension Code(s): I10 - Essential (primary) hypertension Status: Chronic Assessment and Plan: home emds on hold as hypotensive (5) CHF (congestive heart failure): Code(s): I50.9 - Heart failure, unspecified Status: Acute Assessment and Plan: Last echo 2021 ejection fraction 55-60% cardiology on board (6) Atrial fibrillation with RVR: Code(s): I48.91 - Unspecified atrial fibrillation Status: Acute Assessment and Plan: new onset of afib Continue Cardizem 120mg and holding Eliquis 5mg bid po due to epistaxis (7) Anemia: Code(s): D64.9 - Anemia, unspecified Status: Acute Assessment and Plan: Evidence of black tarry stool Hemoglobin dropped from 9.2-7.2 from yesterday 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 Previous history of a bleeding ulcer EGD no significant finding Transfused 2 unit PRBC due to symptomatic anemia (syncope) (8) Nasal bleeding: Code(s): R04.0 - Epistaxis Status: Acute Assessment and Plan: Nasal clamp as needed Status post Afrin-soaked nasal pack No bleeding down posterior pharynx Possibly due to dry nasal nares from oxygen nasal cannula ED physician evaluated and following recommendation ENT consult Plan Ischemic hepatitis AST/ALT 4607/3007, today 134/517 Bili 3.9 now 1.8 Hep B antibody negative GI following Bronchospasm On duoneb treatment Reports intermitted nausea today QTc 511- so ideally avoid medication that could prolong it DVT prophylaxis on Eliquis on hold due to epistaxis Subjective Date/time seen: 10/20/24 07:41 Interval history: Patient will undergo placement of dialysis catheter today. Patient still has rhino pack on the left nares. Hemoglobin stable at 8.5 Review of Systems Review of Systems: 12 systems were reviewed and are negativ e except for as per HPI. Exam Narrative: General: well appearing, appears stated age. HEENT: normocephalic, atraumatic. Mucous membranes moist. EOMI, PERRLA, bilateral sclera anicteric, no conjunctival injection. Neck supple without JVD, lymphadenopathy, or bruit. Respiratory: clear to ascultation bilaterally. No rales/rhonic/wheezes. Cardiovascular: normal S1-S2 upon ascultation. No murmurs, rubs, or clicks. PMI is nondisplaced, capillary refill less than 3 second. Abdomen: Soft, round, no pulsatile masses, nondistended and nontender. No rebound, no guarding. No CVA tenderness, no hepatosplenomegaly. Bowel sounds present Extremities: No cyanosis, clubbing, or edema present. Pulses are palpable 2/2. Active ROM to all four extremities. Neuro: Alert and orientated x 4. PERRLA. Cranial nerves 2-12 intact without focal deficit. Skin: Warm, dry, and intact, without rash, erythema, or lesion. Psych: pleasant, cooperative, normal speech, normal affect, no hallucinations, no dysarthia Const: General: comfortable Objective Data Vital Signs Vital Signs: Vital Signs - 24 hr 10/19/24 08:00 10/19/24 08:00 10/19/24 08:24 Temperature 98.6 F Pulse Rate 86 86 Respiratory Rate 14 Blood Pressure 160/67 H Pulse Oximetry 100 96 Oxygen Delivery Room Air 10/19/24 08:24 10/19/24 08:34 10/19/24 09:03 Temperature 97.7 F Pulse Rate 95 86 87 Respiratory Rate 16 16 16 Blood Pressure 155/77 H Pulse Oximetry Oxygen Delivery 10/19/24 09:16 10/19/24 09:30 10/19/24 09:45 Temperature Pulse Rate 85 93 93 Respiratory Rate Blood Pressure 151/72 H 115/63 103/63 Pulse Oximetry Oxygen Delivery 10/19/24 09:56 10/19/24 10:00 10/19/24 10:15 Temperature Pulse Rate 94 93 87 Respiratory Rate Blood Pressure 91/46 L 106/57 L 117/60 Pulse Oximetry Oxygen Delivery 10/19/24 10:30 10/19/24 10:45 10/19/24 11:00 Temperature Pulse Rate 88 86 86 Respiratory Rate Blood Pressure 120/61 132/63 132/62 Pulse Oximetry Oxygen Delivery 10/19/24 11:15 10/19/24 11:30 10/19/24 11:45 Temperature Pulse Rate 87 84 87 Respiratory Rate Blood Pressure 141/56 H 144/71 H 146/69 H Pulse Oximetry Oxygen Delivery 10/19/24 12:00 10/19/24 12:00 10/19/24 12:15 Temperature Pulse Rate 84 85 87 Respiratory Rate Blood Pressure 139/60 151/69 H Pulse Oximetry Oxygen Delivery 10/19/24 12:30 10/19/24 12:45 10/19/24 13:00 Temperature Pulse Rate 88 89 85 Respiratory Rate Blood Pressure 125/69 138/66 133/66 Pulse Oximetry Oxygen Delivery 10/19/24 13:07 10/19/24 13:15 10/19/24 14:00 Temperature 98.1 F Pulse Rate 80 93 Respiratory Rate 16 Blood Pressure 141/62 H 130/62 Pulse Oximetry Oxygen Delivery Room Air 10/19/24 14:33 10/19/24 14:41 10/19/24 16:00 Temperature Pulse Rate 90 91 93 Respiratory Rate 16 16 Blood Pressure Pulse Oximetry Oxygen Delivery 10/19/24 16:00 10/19/24 19:29 10/19/24 20:00 Temperature 97.2 F L Pulse Rate 88 85 Respiratory Rate 15 16 Blood Pressure 141/58 H 140/60 Pulse Oximetry 100 98 Oxygen Delivery Room Air 10/19/24 20:00 10/19/24 20:20 10/19/24 20:20 Temperature Pulse Rate 85 86 Respiratory Rate 16 Blood Pressure Pulse Oximetry 96 Oxygen Delivery Room Air 10/19/24 20:30 10/19/24 23:50 10/20/24 00:00 Temperature 97.6 F Pulse Rate 88 88 87 Respiratory Rate 16 16 Blood Pressure 137/58 L Pulse Oximetry 99 Oxygen Delivery 10/20/24 01:59 10/20/24 02:10 10/20/24 04:00 Temperature Pulse Rate 87 89 84 Respiratory Rate 16 16 Blood Pressure Pulse Oximetry Oxygen Delivery 10/20/24 04:00 Temperature 97.0 F L Pulse Rate 89 Respiratory Rate 16 Blood Pressure 119/51 L Pulse Oximetry 100 Oxygen Delivery Intake/Output Intake/Output: Intake & Output 10/17/24 10/18/24 10/19/24 10/20/24 23:59 23:59 23:59 23:59 Intake Total 1210 1220 290 Output Total 200 1100 100 Balance 1210 1020 -810 -100 Meds/Results Medications: Active Medications Generic Name Dose Route Start Last Admin Trade Name Freq PRN Reason Stop Dose Admin Acetaminophen 500 mg 10/10/24 23:07 10/17/24 22:44 Acetaminophen 500 Mg Tablet PO 500 mg Q6H PRN Administration Mild Pain (1-3) or Fever Albuterol/Ipratropium 3 ml 10/13/24 02:00 10/20/24 01:57 Ipratropium 0.5 Mg/Albuterol Sulfate 2.5 Mg Ampul.Neb 3 Ml INHALATION 3 ml Q6HRT JIGNA Administration Apixaban 5 mg 10/14/24 12:00 10/17/24 08:47 Apixaban 5 Mg Tablet PO 5 mg Q12HR JIGNA Administration Aspirin 81 mg 10/10/24 09:00 10/19/24 14:30 Aspirin 81 Mg Enteric Tablet PO 81 mg DAILY JIGNA Administration Buspirone HCl 5 mg 10/12/24 11:30 10/19/24 20:48 Buspirone Hcl 5 Mg Tablet PO 5 mg Q12HR JIGNA Administration Dextrose 12.5 gm 10/09/24 20:02 Dextrose 50% 25 Gm/50 Ml Syringe IV PUSH PRN PRN Hypoglycemia Protocol Diltiazem HCl 120 mg 10/11/24 12:00 10/19/24 14:30 Diltiazem Hcl Cd 120 Mg Cap.24hr PO 120 mg QAM JIGNA Administration Escitalopram Oxalate 20 mg 10/10/24 09:00 10/17/24 08:47 Escitalopram Oxalate 10 Mg Tablet PO 20 mg DAILY JIGNA Administration Glucagon 1 mg 10/09/24 20:02 Glucagon For Inj 1 Mg Vial IM PRN PRN Hypoglycemia Protocol Glucose 15 gm 10/09/24 20:02 Glucose Oral Gel 15 Gm Of Glucse In 37.5 Gm Tube PO PRN PRN Hypoglycemia Protocol Dextrose 1,000 mls @ 100 mls/hr 10/09/24 20:02 Dextrose 5% 1,000 Ml IVPB PRN PRN Hypoglycemia Protocol Albumin Human 50 mls @ 999 mls/hr 10/12/24 12:35 10/19/24 11:22 Albutein IVPB 11/11/24 12:34 Infused Q10M PRN Infusion HYPOTENSION Cefazolin Sodium 2 gm in 50 mls @ 100 mls/hr 10/20/24 08:00 Ancef 2 Gm/D5w 50 Ml IVPB 10/20/24 08:29 ONCE ONE Insulin Aspart 2 - 5 units 10/10/24 00:00 10/20/24 06:21 Insulin Aspart (*Bkc) 100 Units/Ml SUB-Q Not Given Q6HR [facility] Protocol Levothyroxine Sodium 125 mcg 10/10/24 06:30 10/20/24 06:21 Levothyroxine Sodium 125 Mcg Tablet BY MOUTH Not Given Q48H JIGNA Levothyroxine Sodium 150 mcg 10/11/24 06:30 10/19/24 05:59 Levothyroxine Sodium 150 Mcg Tablet PO Not Given Q48H JIGNA Miscellaneous Information 1 each 10/19/24 00:01 Please Renew Hydromorphone Hcl. Per [employer] Procedure, It Will Discontinue If Not Renewed XX 11/18/24 00:00 CLARIFY JIGNA Montelukast Sodium 10 mg 10/09/24 21:35 10/19/24 20:48 Montelukast Sodium 10 Mg Tablet BY MOUTH 10 mg QHS JIGNA Administration Oxymetazoline HCl 1 spray 10/17/24 12:43 10/18/24 01:21 Oxymetazoline Hcl 0.05% Pete 15 Ml Btl (*Bkc) NASAL 1 spray Q12HR PRN Administration Dryness Prochlorperazine Edisylate 10 mg 10/18/24 12:20 10/20/24 07:20 Prochlorperazine Edisylate 10 Mg/2 Ml Vial IV PUSH 10 mg Q6H PRN Administration Nausea And Vomiting Prochlorperazine Maleate 5 mg 10/16/24 22:44 10/18/24 00:15 Prochlorperazine Maleate 5 Mg Tablet PO 5 mg Q6H PRN Administration Nausea And Vomiting Radiology Results: ITS Impressions Abdomen/Pelvis CT 10/09/24 16:08 IMPRESSION: Trace pericardial effusion. Scattered calcified and noncalcified sub-6 mm pulmonary nodules, likely representing granulomas. Mild inflammatory change surrounding the pancreatic head and uncinate process, correlate for clinical findings of pancreatitis. Mild inflammatory stranding/edema in the proximal bile ducts, presumably related to the pancreatic process, noting that ascending cholangitis could appear similarly. Mild dilation of the third and fourth portions of the duodenum, presumably ileus related to the pancreatic process. Abdomen X-Ray 10/10/24 06:55 Impression: No acute abnormality is seen. Irregular markedly hyperdense opacity in the pelvis. Correlate for surgical/pr ocedural history or traumatic history/foreign body. Renal Ultrasound 10/10/24 11:35 Impression: Unremarkable ultrasound of the kidneys and urinary bladder. Chest X-Ray 10/16/24 11:13 Impression: 1: Improved asymmetric right-sided airspace disease which may represent asymmetric edema or pneumonia. Chest CT 10/16/24 15:48 IMPRESSION: Large right and moderate left-sided pleural effusions with adjacent compressive atelectasis. Findings within the right middle and upper lobes suggesting asymmetric pulmonary edema. Small pericardial effusion. Labs Labs: Laboratory Results - last 24 hr 10/17/24 10/17/24 10/19/24 04:27 19:59 07:55 WBC RBC Hgb Hct MCV MCH MCHC RDW Plt Count MPV PT 17.6 H D INR 1.4 Sodium Potassium Chloride Carbon Dioxide Anion Gap BUN Creatinine Estim Creat Clear Calc Estimated GFR Glucose POC Capillary Glucose Calcium Total Bilirubin AST ALT Alkaline Phosphatase Total Protein Albumin Serum Immunofixation Normal pattern. Urine Immunofixation PRETTY Screen Negative Redford/Lambda Ratio 1.09 Free Redford Light Chains 62.0 H Free Lambda Light Chain 56.9 H 10/19/24 10/19/24 10/19/24 07:57 12:21 17:08 WBC RBC Hgb Hct MCV MCH MCHC RDW Plt Count MPV PT INR Sodium Potassium Chloride Carbon Dioxide Anion Gap BUN Creatinine Estim Creat Clear Calc Estimated GFR Glucose POC Capillary Glucose 88 80 113 H Calcium Total Bilirubin AST ALT Alkaline Phosphatase Total Protein Albumin Serum Immunofixation Urine Immunofixation PRETTY Screen Redford/Lambda Ratio Free Red[place] Light Chains Free Lambda Light Chain 10/19/24 10/20/24 10/20/24 23:57 04:01 05:44 WBC 9.1 RBC 2.90 L Hgb 8.5 L Hct 26.6 L MCV 91.7 MCH 29.3 MCHC 32.0 RDW 17.2 H Plt Count 215 MPV 10.7 H PT INR Sodium 133 L Potassium 4.0 Chloride 100 Carbon Dioxide 26 Anion Gap 7 BUN 39 H D Creatinine 3.37 H Estim Creat Clear Calc 12 Estimated GFR 13 L Glucose 78 POC Capillary Glucose 76 76 Calcium 8.1 L Total Bilirubin 1.0 AST 37 H ALT 83 H Alkaline Phosphatase 267 H Total Protein 5.4 L Albumin 3.0 L Serum Immunofixation Urine Immunofixation PRETTY Screen Redford/Lambda Ratio Free Red[place] Light Chains Free Lambda Light Chain Quality VTE Prophylaxis VTE prophylaxis: mechanical ordered Hospitalist MIPS Advance Care Plan I have confirmed that the patient's Advanced Care Plan is present, code status is documented, or surrogate decision maker is listed in patient medical record.: Yes Medication Reconciliation I have utilized all available resources to obtain, update and review the patients current medications (includes all prescriptions, OTC, herbals, cannabis, and nutritional supplements).: Yes
[2024-10-20 08:40] LABS: Albumin 2.4 g/dL (3.8-4.8); Alpha 1 Globulin 0.4 g/dL (0.2-0.3); Alpha 2 Globulin 0.6 g/dL (0.5-0.9); Beta 1 Globulin 0.3 g/dL (0.4-0.6); Gamma Globulin 0.5 g/dL (0.8-1.7)
[2024-10-20] MEDS: busPIRone HCL 5 MG TABLET PO ×2 (09:03→20:24)
[2024-10-20] MEDS: dilTIAZem HCL CD 120 MG CAP.24HR PO (09:03)
[2024-10-20 12:43] LABS: Glucose Point of Care 80 mg/dl (65-105)
--- NOTE | 2024-10-20 13:11 | P.PNNP_ITS ---
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 on [employer]/dialysis due to volume overload unresponsive to diuretic therapy * no critical electrolytes but issues with hyponatremia noted * fluid removal with HD as tolerated * follow respiratory status * HD tomorrow - continue T/T/S schedule for now * suspect will need ongoing dialytic support for a significant period of time... * tunneled HD catheter placement later today * follow trend of repeat labs and UOP to assess for potential renal recovery (2) Acute hypoxic respiratory failure: Code(s): J96.01 - Acute respiratory failure with hypoxia Status: Chronic Assessment and Plan: * clinically better * felt more related to renal failure than overt CHF * imaging to date with evidence of pulmonary edema/pleural effusions * ongoing fluid removal with HD as tolerated * monitor respiratory status * given CXR findings and tachypnea on 10/15, s/p DUF for further fluid removal * CT of chest (on 10/16) results noted: * large right and moderate left-sided pleural effusions with adjacent compressive atelectasis * however, repeat imaging with minimal effusions -- thoracentesis cancelled * supplemental oxygen PRN (3) CHF (congestive heart failure): Code(s): I50.9 - Heart failure, unspecified Status: Acute Assessment and Plan: * recent Echo noted: * left ventricle is normal in size and systolic function * left ventricular ejection fraction is visually estimated to be 60-65% * paradoxical septal wall motion abnormality suggestive of bundle-branch block * right ventricle is normal in size and systolic function * no significant valvular abnormalities. * suspect volume overload/pulmonary edema/pleural effusion secondary to renal failure than CHF * failed trial of diuretic therapy * ongoing fluid removal with HD to acheive/maintain euvolemia (4) Anemia: Code(s): D64.9 - Anemia, unspecified Status: Acute Assessment and Plan: * related to CHAD and acute illness * drop in H/H noted on 10/17 - blood transfusion following rapid response * drop in H/H further on 10/18 evening (received blood transfusion) * complicated by epistaxis * anemia studies noted: * adequate iron stores * B12 and folate good * Epogen with HD * PRBC transfusion per protocol * GI following intermittently * s/p EGD on 10/18 - no active bleeding lesions noted * holding Eliquis * follow trend of H/H (5) Atrial fibrillation with RVR: Code(s): I48.91 - Unspecified atrial fibrillation Status: Acute Assessment and Plan: * Cardiology recommendations noted * diltiazem for rate control * was on anticoagulation (Eliquis) - on hold due to #4 (6) Elevated liver enzymes: Code(s): R74.8 - Abnormal levels of other serum enzymes Status: Acute Assessment and Plan: * as noted on admission * slow improvement noted by trend * thought to be related to altered hemodynamics/previous hypotension * GI recommendations noted (7) Hypertension: Qualifiers: Hypertension type: unspecified Qualified Code(s): I10 - Essential (primary) hypertension Code(s): I10 - Essential (primary) hypertension Status: Chronic Assessment and Plan: * clinically better at this time * back on diltiazem (more so for rate control) * follow trend of hemodynamics (8) Diabetes: Code(s): E11.9 - Type 2 diabetes mellitus without complications Status: Acute Assessment and Plan: * follow accu-checks * glycemic control per hospitalist Will continue to follow. L Subjective Date/time seen: 10/20/24 13:11 Interval history: Follow-up for acute kidney injury/acute renal failure (now requiring [employer]/hemodialysis). Tolerated dialysis treatment yesterday without any issues or problems; attempted thoracentesis cancelled yesterday as no significant pleural effusions were noted on ultrasound; noted plans for tunneled HD catheter placement this afternoon given ongoing dialysis needs; H/H relatively stable at this time; no other issues/events overnight or earlier this morning. Exam 2 Narrative: General: elderly and mildly ill-appearing female in NAD Heart: normal S1 and S2; no rub Lungs: clear anteriorly; diminished at bases Abdomen: soft, nontender, nondistended, positive bowel sounds Extremities: no cyanosis or clubbing; no edema Skin: warm and dry Objective Data Vital Signs Vital Signs: Vital Signs Temp Pulse Resp BP Pulse Ox O2 Del Method 10/20/24 12:00 85 10/20/24 09:02 89 149/60 H 100 10/20/24 09:00 Room Air 10/20/24 08:30 98.1 F 90 18 157/63 H 100 10/20/24 08:00 80 10/20/24 07:55 79 16 10/20/24 04:00 97.0 F L 89 16 119/51 L 100 10/20/24 04:00 84 10/20/24 02:10 89 16 10/20/24 01:59 87 16 10/20/24 00:00 87 10/19/24 23:50 97.6 F 88 16 137/58 L 99 10/19/24 20:30 88 16 10/19/24 20:20 86 16 10/19/24 20:20 96 Room Air 10/19/24 20:00 85 10/19/24 20:00 Room Air 10/19/24 19:29 97.2 F L 85 16 140/60 98 Intake/Output Intake/Output: Intake & Output 10/17/24 10/18/24 10/19/24 10/20/24 23:59 23:59 23:59 23:59 Intake Total 1210 1220 290 100 Output Total 200 1100 200 Balance 1210 1020 -810 -100 Meds/Results Medications: Active Medications Generic Name Dose Route Start Last Admin Trade Name Freq PRN Reason Stop Dose Admin Acetaminophen 500 mg 10/10/24 23:07 10/17/24 22:44 Acetaminophen 500 Mg Tablet PO 500 mg Q6H PRN Administration Mild Pain (1-3) or Fever Albuterol/Ipratropium 3 ml 10/13/24 02:00 10/20/24 14:25 Ipratropium 0.5 Mg/Albuterol Sulfate 2.5 Mg Ampul.Neb 3 Ml INHALATION 3 ml Q6HRT JIGNA Administration Apixaban 5 mg 10/14/24 12:00 10/17/24 08:47 Apixaban 5 Mg Tablet PO 5 mg Q12HR JIGNA Administration Aspirin 81 mg 10/10/24 09:00 10/20/24 09:04 Aspirin 81 Mg Enteric Tablet PO Not Given DAILY JIGNA Buspirone HCl 5 mg 10/12/24 11:30 10/20/24 09:03 Buspirone Hcl 5 Mg Tablet PO 5 mg Q12HR JIGNA Administration Dextrose 12.5 gm 10/09/24 20:02 Dextrose 50% 25 Gm/50 Ml Syringe IV PUSH PRN PRN Hypoglycemia Protocol Diltiazem HCl 120 mg 10/11/24 12:00 10/20/24 09:03 Diltiazem Hcl Cd 120 Mg Cap.24hr PO 120 mg QAM JIGNA Administration Escitalopram Oxalate 20 mg 10/10/24 09:00 10/17/24 08:47 Escitalopram Oxalate 10 Mg Tablet PO 20 mg DAILY JIGNA Administration Fentanyl Citrate 25 mcg 10/20/24 14:01 10/20/24 16:54 Fentanyl Citrate Inj (*Crx) 100 Mcg/2 Ml Vial IV PUSH 25 mcg Q2M PRN Administration Pain Glucagon 1 mg 10/09/24 20:02 Glucagon For Inj 1 Mg Vial IM PRN PRN Hypoglycemia Protocol Glucose 15 gm 10/09/24 20:02 Glucose Oral Gel 15 Gm Of Glucse In 37.5 Gm Tube PO PRN PRN Hypoglycemia Protocol Dextrose 1,000 mls @ 100 mls/hr 10/09/24 20:02 Dextrose 5% 1,000 Ml IVPB PRN PRN Hypoglycemia Protocol Albumin Human 50 mls @ 999 mls/hr 10/12/24 12:35 10/19/24 11:22 Albutein IVPB 11/11/24 12:34 Infused Q10M PRN Infusion HYPOTENSION Sodium Chloride 500 mls @ 30 mls/hr 10/20/24 14:45 10/20/24 17:15 Normal Saline Iv IV CONT Infused .[id number] JIGNA Infusion Insulin Aspart 2 - 5 units 10/10/24 00:00 10/20/24 12:22 Insulin Aspart (*Bkc) 100 Units/Ml SUB-Q Not Given Q6HR [facility] Protocol Levothyroxine Sodium 125 mcg 10/10/24 06:30 10/20/24 06:21 Levothyroxine Sodium 125 Mcg Tablet BY MOUTH Not Given Q48H [facility] Levothyroxine Sodium 150 mcg 10/11/24 06:30 10/19/24 05:59 Levothyroxine Sodium 150 Mcg Tablet PO Not Given Q48H [facility] Miscellaneous Information 1 each 10/19/24 00:01 Please Renew Hydromorphone Hcl. Per [employer] Procedure, It Will Discontinue If Not Renewed XX 11/18/24 00:00 CLARIFY JIGNA Montelukast Sodium 10 mg 10/09/24 21:35 10/19/24 20:48 Montelukast Sodium 10 Mg Tablet BY MOUTH 10 mg QHS JIGNA Administration Ondansetron HCl 4 mg 10/20/24 14:01 Ondansetron Inj 4 Mg/2 Ml Vial IV PUSH ONCE PRN Nausea Oxymetazoline HCl 1 spray 10/17/24 12:43 10/18/24 01:21 Oxymetazoline Hcl 0.05% Pete 15 Ml Btl (*Bkc) NASAL 1 spray Q12HR PRN Administration Dryness Prochlorperazine Edisylate 10 mg 10/18/24 12:20 10/20/24 07:20 Prochlorperazine Edisylate 10 Mg/2 Ml Vial IV PUSH 10 mg Q6H PRN Administration Nausea And Vomiting Prochlorperazine Maleate 5 mg 10/16/24 22:44 10/18/24 00:15 Prochlorperazine Maleate 5 Mg Tablet PO 5 mg Q6H PRN Administration Nausea And Vomiting Radiology Results: ITS Impressions Abdomen/Pelvis CT 10/09/24 16:08 IMPRESSION: Trace pericardial effusion. Scattered calcified and noncalcified sub-6 mm pulmonary nodules, likely representing granulomas. Mild inflammatory change surrounding the pancreatic head and uncinate process, correlate for clinical findings of pancreatitis. Mild inflammatory stranding/edema in the proximal bile ducts, presumably related to the pancreatic process, noting that ascending cholangitis could appear similarly. Mild dilation of the third and fourth portions of the duodenum, presumably ileus related to the pancreatic process. Abdomen X-Ray 10/10/24 06:55 Impression: No acute abnormality is seen. Irregular markedly hyperdense opacity in the pelvis. Correlate for surgical/procedural history or traumatic history/foreign body. Renal Ultrasound 10/10/24 11:35 Impression: Unremarkable ultrasound of the kidneys and urinary bladder. Chest CT 10/16/24 15:48 IMPRESSION: Large right and moderate left-sided pleural effusions with adjacent compressive atelectasis. Findings within the right middle and upper lobes suggesting asymmetric pulmonary edema. Small pericardial effusion. Chest X-Ray 10/20/24 16:16 IMPRESSION: Bilateral opacification suggestive of pneumonia more prominent in the right lung base. Underlying pulmonary edema is not excluded. Labs Labs: Laboratory Tests 10/20/24 04:01 10/20/24 04:01 Calcium 8.1 L Total Bilirubin 1.0 AST 37 H ALT 83 H Alkaline Phosphatase 267 H Total Protein 5.4 L Albumin 3.0 L
[2024-10-20 13:33] LABS: Anti Glomerular Basement Memb <1.0 AI
[2024-10-20] MEDS: SODIUM CHLORIDE 0.9% IV 500 ML 30 ML IV CONT (13:40)
--- NOTE | 2024-10-20 13:49 | P.PNAN_ITS ---
Anes - Initial Pre Proc Eval Procedure: Operation Date: 10/20/24 15:00 Proposed Procedures p Placement Tunneled Dialysis Catheter - Raul Lozano DO Date/Time: 10/20/24 13:49 Surgeon: Cinda Bliss MD Pre Op Diagnosis: CHAD, Pancreatitis Patient Data Age: 78 Gender: F Height: 1.7 m Weight: 70.8 kg Last Vital Signs Temp 36.7 C 10/20/24 08:30 Pulse 89 10/20/24 09:02 Resp 18 10/20/24 08:30 BP 149/60 H 10/20/24 09:02 Pulse Ox 100 10/20/24 09:02 O2 Del Method Room Air 10/20/24 09:00 O2 Flow Rate 2 10/17/24 20:00 FiO2 21 10/18/24 19:52 Allergies Allergy/AdvReac Type Severity Reaction Status Date / Time adhesive tape Allergy Intermediate Rash Verified 10/18/24 09:49 Iodinated Contrast Media Allergy Mild Hives Verified 10/18/24 09:49 iodine Allergy Unknown Hives Verified 10/18/24 09:49 codeine AdvReac Unknown Hallucinati Verified 10/18/24 09:49 ng morphine AdvReac Unknown Hallucinati Verified 10/18/24 09:49 ng Home Medications ?Medication ?Instructions ?Recorded ?Confirmed ?Type aspirin 81 mg tablet,delayed 81 mg PO DAILY 03/09/19 10/09/24 History release (Adult Low Dose Aspirin) cyanocobalamin (vitamin B-12) 1,000 mcg PO QPM 10/25/20 10/09/24 History 1,000 mcg tablet (Vitamin B-12) ascorbic acid (vitamin C) 1,000 mg 1 g PO QPM 10/03/21 10/09/24 History tablet cholecalciferol (vitamin D3) 25 2,000 unit PO DAILY 01/26/22 10/09/24 History mcg (1,000 unit) tablet omega-3 fatty acids 1,000 mg 1,000 mg PO QPM 01/26/22 10/09/24 History capsule turmeric 1,000 mg BYMOUTH DAILY 01/26/22 10/09/24 History biotin 300 mcg tablet 300 mg BYMOUTH DAILY 02/23/24 10/09/24 History Folate 1,330 mg PO DAILY 03/15/24 10/09/24 History calcium 600 mg capsule 1,200 mg PO HS 03/15/24 10/09/24 History calcium polycarbophil 625 mg 625 mg PO DAILY 03/15/24 10/09/24 History tablet (Fiber (calcium polycarbophil)) escitalopram oxalate 20 mg tablet See Rx Instructions .Route 05/19/24 10/09/24 Rx .COMPLEX #90 tabs levothyroxine 150 mcg tablet 150 mcg PO EVERY OTHER DAY #45 tabs 06/14/24 10/09/24 Rx losartan 50 mg tablet 50 mg PO DAILY #90 tabs 06/17/24 10/09/24 Rx levothyroxine 125 mcg tablet See Rx Instructions .Route 07/05/24 10/09/24 Rx .COMPLEX #90 tabs metformin 500 mg tablet,extended See Rx Instructions .Route 08/16/24 10/09/24 Rx release 24 hr .COMPLEX #360 tabs empagliflozin 25 mg tablet 25 mg PO DAILY #90 tabs 09/06/24 10/09/24 Rx (Jardiance) linagliptin 5 mg tablet (Tradjenta) 5 mg PO QAM #90 tabs 09/06/24 10/09/24 Rx levofloxacin 750 mg tablet 750 mg PO Q24H 10/09/24 10/09/24 History metronidazole 500 mg tablet 500 mg PO Q8H 10/09/24 10/09/24 History montelukast 10 mg tablet See Rx Instructions .Route 10/18/24 Rx .COMPLEX #90 tabs rosuvastatin 40 mg tablet See Rx Instructions .Route 10/18/24 Rx .COMPLEX #90 tabs Laboratory Tests 10/17/24 10/17/24 10/19/24 04:27 19:59 17:08 WBC RBC Hgb Hct MCV MCH MCHC RDW Plt Count MPV Sodium Potassium Chloride Carbon Dioxide Anion Gap BUN Creatinine Estim Creat Clear Calc Estimated GFR Glucose POC Capillary Glucose 113 H mg/dl (65-105) Calcium Total Bilirubin AST ALT Alkaline Phosphatase Total Protein Albumin 2.4 L g/dL (3.8-4.8) Zzqps-8-Rxhwmeudm 0.4 H g/dL (0.2-0.3) Qpjvi-2-Cqsfmelen 0.6 g/dL (0.5-0.9) Kljd-9-Ogmmlotq 0.3 L g/dL (0.4-0.6) Obcg-3-Nkpmsgym 0.2 g/dL (0.2-0.5) Gamma Globulins 0.5 L g/dL (0.8-1.7) PEP Interpretation See note Serum Immunofixation Normal pattern. Urine Immunofixation PRETTY Screen Negative (NEGATIVE) Glomerular Base Memb Ab <1.0 AI [place]/Lambda Ratio 1.09 (0.26-1.65) Free [place] Light Chains 62.0 H mg/L (3.3-19.4) Free Lambda Light Chain 56.9 H mg/L (5.7-26.3) 10/19/24 10/20/24 10/20/24 23:57 04:01 05:44 WBC 9.1 K/mm3 (4.5-10.0) RBC 2.90 L M/mm3 (4.2-5.4) Hgb 8.5 L g/dL (12.0-15.0) Hct 26.6 L % (37.0-47.0) MCV 91.7 fl (80-100) MCH 29.3 pg (26-34) MCHC 32.0 g/dl (32-36) RDW 17.2 H % (11.5-14.5) Plt Count 215 k/mm3 (150-375) MPV 10.7 H fl (7.4-10.4) Sodium 133 L mmol/L (137-145) Potassium 4.0 mmol/L (3.4-5.0) Chloride 100 mmol/L (98-107) Carbon Dioxide 26 mmol/L (22-30) Anion Gap 7 mmol/L (4-12) BUN 39 H D mg/dL (7-17) Creatinine 3.37 H mg/dL (0.7-1.0) Estim Creat Clear Calc 12 ml/min Estimated GFR 13 L (59 - ) Glucose 78 mg/dL (65-110) POC Capillary Glucose 76 mg/dl 76 mg/dl (65-105) (65-105) Calcium 8.1 L mg/dL (8.4-10.2) Total Bilirubin 1.0 mg/dL (0.2-1.3) AST 37 H U/L (14-36) ALT 83 H U/L (6-35) Alkaline Phosphatase 267 H U/L (38-126) Total Protein 5.4 L g/dL (6.3-8.2) Albumin 3.0 L g/dL (3.5-5.1) Ldrpy-0-Zhdmzbmqy Jqolf-9-Nspnfhfaj Khwn-5-Etuloszp Kfqd-3-Wcpcnfyd Gamma Globulins PEP Interpretation Serum Immunofixation Urine Immunofixation PRETTY Screen Glomerular Base Memb Ab [place]/Lambda Ratio Free [place] Light Chains Free Lambda Light Chain 10/20/24 12:21 WBC RBC Hgb Hct MCV MCH MCHC RDW Plt Count MPV Sodium Potassium Chloride Carbon Dioxide Anion Gap BUN Creatinine Estim Creat Clear Calc Estimated GFR Glucose POC Capillary Glucose 80 mg/dl (65-105) Calcium Total Bilirubin AST ALT Alkaline Phosphatase Total Protein Albumin Ecina-4-Quoshqsci Puluz-0-Stcmlnrqr Kxez-5-Vxnhinrb Qaef-8-Ivzvmqnx Gamma Globulins PEP Interpretation Serum Immunofixation Urine Immunofixation PRETTY Screen Glomerular Base Memb Ab [place]/Lambda Ratio Free [place] Light Chains Free Lambda Light Chain Patient hx anesthesia problems: none Family hx anesthesia problems: none Results Review: All pre-operative results and documents have been reviewed as part of the pre- operative evaluation. [facility] Past Medical History Medical History Nasal bleeding Acute on chronic anemia Melena BMI 25.0-25.9,adult BMI 31.0-31.9,adult BMI 26.0-26.9,adult BMI 27.0-27.9,adult Diastolic heart failure Diverticulitis BMI 29.0-29.9,adult Fatty liver Olecranon bursitis of left elbow Chronic back pain Suspected chronic obstructive pulmonary disease based on initial evaluation Pneumonia Asthma exacerbation in COPD Thyroid cancer Coronary artery disease PA in 2010 status post stent x2. Polymyalgia rheumatica Left bundle branch block Degenerative joint disease Type 2 diabetes mellitus Fibromyalgia Hypertension Hypothyroidism Familial tremor Anxiety with depression Vitamin D deficiency Hyperlipidemia Hearing loss Orthostatic hypotension Surgical History Surgical History History of epidermal inclusion cyst excision Left neck. History of hysterectomy History of coronary artery stent placement History of cholecystectomy History of partial thyroidectomy History of colonoscopy with polypectomy History of breast biopsy Family History Family History Grandparent Diabetes mellitus Mother Hypertension Heart disease Ovarian cancer Father Malignant neoplasm of prostate Cerebrovascular accident Daughter Breast cancer Social History Social History Social History: Surrogate medical decision maker: Allen Tello, spouse. Code status: Full code. Smoking packs per day: 1 Smoking cigarettes per day: 20.0 Smoking status: Former smoker Tobacco type: cigarettes Second hand tobacco smoke exposure: Yes Smoking end date: 02/24/99 Alcohol intake: never Substance use: current Substance use type: marijuana Other substance usage details: tea Last use: 8 mos ago Do You Feel Safe in your Home?: Yes Lack of Transportation: No Lack of Food: Never True Current Housing: I Have Housing Concerned About Future Housing: No Difficulty Paying Gas/Electric Bills: No Difficulty Paying for Meds: No Currently Unemployed: No Education: Trade/Vocational Certificate Difficulty w/ Childcare or Family Care: No Living arrangements: with family Additional living arrangements comments: Lives in [place] with spouse. Spiritual care concerns: No Anes - Eval Final PreProcedure Day of Procedure 10/20/24 13:49 Patient weight: normal Heart: regular rate and rhythm Lungs: clear to auscultation Airway: Mallampati scale class III Neurological: alert and oriented Last oral intake: >/= 8 hours ASA classification: IV Emergent: no Anesthetic plan: proceed Anesthesia type and monitoring: general LMA and standard monitoring Results Review: All pre-operative results and documents have been reviewed as part of the pre- operative evaluation. Informed Consent: The patient's anesthetic plan and its attendant risks and benefits were discus sed with the patient/family/POA. Questions were solicited and answers provided to the satisfaction of the patient/family/POA.
[2024-10-20 14:03] LABS: Glucose Point of Care 72 mg/dl (65-105)
[2024-10-20] MEDS: DEXTROSE 50% 25 GM/50 ML SYRINGE IV PUSH (14:09)
--- NOTE | 2024-10-20 14:33 | PCPTNOTE ---
Attempted to see patient for PT, however patient was out of the room for procedure and unable to be seen.
[2024-10-20 14:45] LABS: Glucose Point of Care 113 mg/dl (65-105)
--- NOTE | 2024-10-20 14:50 | PCOTNOTE ---
Attempted to see Patient at this time. Patient is out of the room. Per RN, having a dialysis catheter placed in surgery
--- NOTE | 2024-10-20 14:57 | P.PNGS_ITS ---
Progress Note: A&P Assessment and Plan (1) CHAD (acute kidney injury): Code(s): N17.9 - Acute kidney failure, unspecified Status: Acute Assessment and Plan: Will proceed with placement of tunneled dialysis catheter. Discussed procedure, risks, benefits, and alternatives. Questions answered. Subjective Subjective Date/Time Seen: 10/20/24 14:57 Interval history: patient seen in preop. She is still requiring hemodialysis and now needs a tunneled dialysis catheter. Objective Data Vital Signs Vital Signs: Vital Signs - 24 hr 10/19/24 16:00 10/19/24 16:00 10/19/24 19:29 Temperature 97.2 F L Pulse Rate 93 88 85 Respiratory Rate 15 16 Blood Pressure 141/58 H 140/60 Pulse Oximetry 100 98 Oxygen Delivery 10/19/24 20:00 10/19/24 20:00 10/19/24 20:20 Temperature Pulse Rate 85 Respiratory Rate Blood Pressure Pulse Oximetry 96 Oxygen Delivery Room Air Room Air 10/19/24 20:20 10/19/24 20:30 10/19/24 23:50 Temperature 97.6 F Pulse Rate 86 88 88 Respiratory Rate 16 16 16 Blood Pressure 137/58 L Pulse Oximetry 99 Oxygen Delivery 10/20/24 00:00 10/20/24 01:59 10/20/24 02:10 Temperature Pulse Rate 87 87 89 Respiratory Rate 16 16 Blood Pressure Pulse Oximetry Oxygen Delivery 10/20/24 04:00 10/20/24 04:00 10/20/24 07:55 Temperature 97.0 F L Pulse Rate 84 89 79 Respiratory Rate 16 16 Blood Pressure 119/51 L Pulse Oximetry 100 Oxygen Delivery 10/20/24 08:00 10/20/24 08:30 10/20/24 09:00 Temperature 98.1 F Pulse Rate 80 90 Respiratory Rate 18 Blood Pressure 157/63 H Pulse Oximetry 100 Oxygen Delivery Room Air 10/20/24 09:02 10/20/24 14:35 Temperature 98.8 F Pulse Rate 89 85 Respiratory Rate 18 Blood Pressure 149/60 H 156/68 H Pulse Oximetry 100 100 Oxygen Delivery Room Air Intake/Output Intake/Output: Intake & Output 10/17/24 10/18/24 10/19/24 10/20/24 23:59 23:59 23:59 23:59 Intake Total 1210 1220 290 Output Total 200 1100 100 Balance 1210 1020 -810 -100 Meds/Results Medications: Active Medications Generic Name Dose Route Start Last Admin Trade Name Freq PRN Reason Stop Dose Admin Acetaminophen 500 mg 10/10/24 23:07 10/17/24 22:44 Acetaminophen 500 Mg Tablet PO 500 mg Q6H PRN Administration Mild Pain (1-3) or Fever Albuterol/Ipratropium 3 ml 10/13/24 02:00 10/20/24 07:52 Ipratropium 0.5 Mg/Albuterol Sulfate 2.5 Mg Ampul.Neb 3 Ml INHALATION 3 ml Q6HRT JIGNA Administration Apixaban 5 mg 10/14/24 12:00 10/17/24 08:47 Apixaban 5 Mg Tablet PO 5 mg Q12HR JIGNA Administration Aspirin 81 mg 10/10/24 09:00 10/20/24 09:04 Aspirin 81 Mg Enteric Tablet PO Not Given DAILY JIGNA Buspirone HCl 5 mg 10/12/24 11:30 10/20/24 09:03 Buspirone Hcl 5 Mg Tablet PO 5 mg Q12HR JIGNA Administration Dextrose 12.5 gm 10/09/24 20:02 Dextrose 50% 25 Gm/50 Ml Syringe IV PUSH PRN PRN Hypoglycemia Protocol Diltiazem HCl 120 mg 10/11/24 12:00 10/20/24 09:03 Diltiazem Hcl Cd 120 Mg Cap.24hr PO 120 mg QAM JIGNA Administration Escitalopram Oxalate 20 mg 10/10/24 09:00 10/17/24 08:47 Escitalopram Oxalate 10 Mg Tablet PO 20 mg DAILY JIGNA Administration Fentanyl Citrate 25 mcg 10/20/24 14:01 Fentanyl Citrate Inj (*Crx) 100 Mcg/2 Ml Vial IV PUSH Q2M PRN Pain Glucagon 1 mg 10/09/24 20:02 Glucagon For Inj 1 Mg Vial IM PRN PRN Hypoglycemia Protocol Glucose 15 gm 10/09/24 20:02 Glucose Oral Gel 15 Gm Of Glucse In 37.5 Gm Tube PO PRN PRN Hypoglycemia Protocol Dextrose 1,000 mls @ 100 mls/hr 10/09/24 20:02 Dextrose 5% 1,000 Ml IVPB PRN PRN Hypoglycemia Protocol Albumin Human 50 mls @ 999 mls/hr 10/12/24 12:35 10/19/24 11:22 Albutein IVPB 11/11/24 12:34 Infused Q10M PRN Infusion HYPOTENSION Sodium Chloride 500 mls @ 30 mls/hr 10/20/24 14:45 10/20/24 13:40 Normal Saline Iv IV CONT 30 mls/hr .[id number] JIGNA Administration Insulin Aspart 2 - 5 units 10/10/24 00:00 10/20/24 12:22 Insulin Aspart (*Bkc) 100 Units/Ml SUB-Q Not Given Q6HR [facility] Protocol Levothyroxine Sodium 125 mcg 10/10/24 06:30 10/20/24 06:21 Levothyroxine Sodium 125 Mcg Tablet BY MOUTH Not Given Q48H [facility] Levothyroxine Sodium 150 mcg 10/11/24 06:30 10/19/24 05:59 Levothyroxine Sodium 150 Mcg Tablet PO Not Given Q48H [facility] Miscellaneous Information 1 each 10/19/24 00:01 Please Renew Hydromorphone Hcl. Per [employer] Procedure, It Will Discontinue If Not Renewed XX 11/18/24 00:00 CLARIFY [facility] Montelukast Sodium 10 mg 10/09/24 21:35 10/19/24 20:48 Montelukast Sodium 10 Mg Tablet BY MOUTH 10 mg QHS [facility] Administration Ondansetron HCl 4 mg 10/20/24 14:01 Ondansetron Inj 4 Mg/2 Ml Vial IV PUSH ONCE PRN Nausea Oxymetazoline HCl 1 spray 10/17/24 12:43 10/18/24 01:21 Oxymetazoline Hcl 0.05% Pete 15 Ml Btl (*Bkc) NASAL 1 spray Q12HR PRN Administration Dryness Prochlorperazine Edisylate 10 mg 10/18/24 12:20 10/20/24 07:20 Prochlorperazine Edisylate 10 Mg/2 Ml Vial IV PUSH 10 mg Q6H PRN Administration Nausea And Vomiting Prochlorperazine Maleate 5 mg 10/16/24 22:44 10/18/24 00:15 Prochlorperazine Maleate 5 Mg Tablet PO 5 mg Q6H PRN Administration Nausea And Vomiting Radiology Results: ITS Impressions Abdomen/Pelvis CT 10/09/24 16:08 IMPRESSION: Trace pericardial effusion. Scattered calcified and noncalcified sub-6 mm pulmonary nodules, likely representing granulomas. Mild inflammatory change surrounding the pancreatic head and uncinate process, correlate for clinical findings of pancreatitis. Mild inflammatory stranding/edema in the proximal bile ducts, presumably related to the pancreatic process, noting that ascending cholangitis could appear similarly. Mild dilation of the third and fourth portions of the duodenum, presumably ileus related to the pancreatic process. Abdomen X-Ray 10/10/24 06:55 Impression: No acute abnormality is seen. Irregular markedly hyperdense opacity in the pelvis. Correlate for surgical/procedural history or traumatic history/foreign body. Renal Ultrasound 10/10/24 11:35 Impression: Unremarkable ultrasound of the kidneys and urinary bladder. Chest X-Ray 10/16/24 11:13 Impression: 1: Improved asymmetric right-sided airspace disease which may represent asymmetric edema or pneumonia. Chest CT 10/16/24 15:48 IMPRESSION: Large right and moderate left-sided pleural effusions with adjacent compressive atelectasis. Findings within the right middle and upper lobes suggesting asymmetric pulmonary edema. Small pericardial effusion. Labs Labs: Laboratory Results - last 24 hr 10/17/24 10/17/24 10/19/24 04:27 19:59 17:08 WBC RBC Hgb Hct MCV MCH MCHC RDW Plt Count MPV Sodium Potassium Chloride Carbon Dioxide Anion Gap BUN Creatinine Estim Creat Clear Calc Estimated GFR Glucose POC Capillary Glucose 113 H Calcium Total Bilirubin AST ALT Alkaline Phosphatase Total Protein Albumin 2.4 L Azkrg-0-Phsjgglgx 0.4 H Ajdbq-8-Fnpxznaio 0.6 Pwdm-1-Bjvfmlvd 0.3 L Oowc-2-Gbhfgcxj 0.2 Gamma Globulins 0.5 L PEP Interpretation See note Serum Immunofixation Normal pattern. Urine Immunofixation PRETTY Screen Negative Glomerular Base Memb Ab <1.0 10/19/24 10/20/24 10/20/24 23:57 04:01 05:44 WBC 9.1 RBC 2.90 L Hgb 8.5 L Hct 26.6 L MCV 91.7 MCH 29.3 MCHC 32.0 RDW 17.2 H Plt Count 215 MPV 10.7 H Sodium 133 L Potassium 4.0 Chloride 100 Carbon Dioxide 26 Anion Gap 7 BUN 39 H D Creatinine 3.37 H Estim Creat Clear Calc 12 Estimated GFR 13 L Glucose 78 POC Capillary Glucose 76 76 Calcium 8.1 L Total Bilirubin 1.0 AST 37 H ALT 83 H Alkaline Phosphatase 267 H Total Protein 5.4 L Albumin 3.0 L Agiil-5-Camhoxpph Awkre-2-Sozpeqsra Pslr-8-Rvrorzde Eaey-5-Dedxelvh Gamma Globulins PEP Interpretation Serum Immunofixation Urine Immunofixation PRETTY Screen Glomerular Base Memb Ab 10/20/24 10/20/24 10/20/24 12:21 13:58 14:39 WBC RBC Hgb Hct MCV MCH MCHC RDW Plt Count MPV Sodium Potassium Chloride Carbon Dioxide Anion Gap BUN Creatinine Estim Creat Clear Calc Estimated GFR Glucose POC Capillary Glucose 80 72 113 H Calcium Total Bilirubin AST ALT Alkaline Phosphatase Total Protein Albumin Bkmgu-2-Jnnymrvla Deguv-8-Budgjqxqr Trse-0-Iigtbqsb Bsir-8-Pbezlede Gamma Globulins PEP Interpretation Serum Immunofixation Urine Immunofixation PRETTY Screen Glomerular Base Memb Ab
--- NOTE | 2024-10-20 14:57 | WPDHPUPDATE1 ---
History and Physical Update Update Date/Time: 10/20/24 14:57 History and Physical has been reviewed, including an updated exam of the patient. There are NO changes in the patient's condition. Risks, benefits, and alternatives have been discussed and questions answered. Patient agrees to proceed with procedure.
[2024-10-20] MEDS: ceFAZolin 2 GM/D5W 50 ML 2 GM/50 ML BAG IVPB (15:08)
[2024-10-20] MEDS: HEPARIN SODIUM, PORCINE 10,000 UNITS/10 ML VIAL 4.5 UNITS IV PUSH (15:39)
[2024-10-20] MEDS: HEPARIN SODIUM 5,000 UNITS/ML VIAL 5000 UNITS IRRIGATION (15:41)
[2024-10-20] MEDS: LIDO 1%/EPINEPHRINE 1:100,000 20 ML VIAL INFILTRATE (15:43)
[2024-10-20 16:13] LABS: Glucose Point of Care 96 mg/dl (65-105)
--- NOTE | 2024-10-20 16:20 | W.PM.PROC2 ---
Procedure Note - Detailed Date of Procedure 10/20/24 Pre-op Diagnosis CHAD, Pancreatitis Post-op Diagnosis Same Procedure Performed Left internal jugular tunneled dialysis catheter placement using ultrasound and fluoroscopic guidance Surgeon Raul Lozano DO Senior Radiation Protection Technician Tomasa Longoria PA-C Anesthesia MAC and Local (1% lidocaine with epinephrine) Indications Acute renal failure Findings SonoSite ultrasound was used to identify the left internal jugular vein. This was identified as a compressible vessel just lateral to the pulsatile carotid artery. The 18 gauge introducer needle was advanced under ultrasound guidance directly into the lumen the left internal jugular vein. Dark nonpulsatile blood was aspirated. Fluoroscopy was then used to guide advancement of the guidewire followed by the dilator and sheath. The final fluoroscopic images demonstrated the catheter tip in the distal SVC and no kinks along its path. Tomasa Longoria PA-C assisted with the entire procedure. Description of Procedure Procedure as well as risks, benefits, and alternatives were discussed with patient. Written consent was obtained and placed in chart prior to procedure. Patient was brought back to surgical suite. Placed supine on operating table. Time-out was done confirm patient procedure. IV sedation was then administered by the Anesthesia Department. Her chest and neck area was prepped and draped in sterile fashion using chlorhexidine prep. Patient was placed in Trendelenburg position. SonoSite ultrasound was used to identify the left internal jugular vein. It was visualized as a compressible vessel just lateral to the carotid artery. 1% lidocaine with epinephrine was infiltrated directly over the vessel under ultrasound guidance. An 18 gauge introducer needle was then advanced under ultrasound guidance directly into the left internal jugular vein. Dark nonpulsatile blood was aspirated. A 0.035 in guidewire was then advanced through the needle under fluoroscopic guidance. The guidewire was visualized advancing all the way down into the superior vena cava. 1% lidocaine with epinephrine was then infiltrated on the left anterior chest and along the tract up to the guidewire insertion site. A 5 mm incision was made with a 15 blade scalpel. A small moncho incision was then also made at the insertion site at the neck. The tunneler was then advanced from the chest incision up to the neck incision and the catheter tubing was brought up through this tract. The dilator and sheath were then advanced over the guidewire under fluoroscopic visualization. The dilator and guidewire were then removed leaving the sheath in place. The catheter tubing was then advanced through the sheath under fluoroscopic guidance. The sheath was unsnapped and carefully peeled away. The catheter tubing was released underneath the neck incision. Fluoroscopy was used to confirm proper placement of the catheter tubing and no kinks along its path. The catheter was then hep-locked with Hep-Lock solution. The skin of the incisions was then approximated using 4-0 Monocryl subcuticular suture. Exofin glue was then applied at the neck incision and 2x2 gauze and Tegaderm drassing applied at the chest. The patient was then awakened from anesthesia and transferred to recovery. Implants 28 cm DuraFlow2 dialysis catheter Estimated Blood Loss 5 Urine Output 100 Complications No immediate complications Condition Stable [place] [facility] [facility] - Charge Forward: Surgery [facility]
[2024-10-20] MEDS: fentaNYL CITRATE INJ (*CRX) 100 MCG/2 ML VIAL 25 MCG IV PUSH (16:54)
[2024-10-20 17:49] LABS: Glucose Point of Care 88 mg/dl (65-105)
[2024-10-20] MEDS: ACETAMINOPHEN 500 MG TABLET PO ×2 (19:33→22:27)
[2024-10-20] MEDS: MONTELUKAST SODIUM 10 MG TABLET BY MOUTH (20:24)
[2024-10-20 23:37] LABS: Glucose Point of Care 90 mg/dl (65-105)
[2024-10-21] VITALS (34 sets, daily range): BP systolic 122–184; BP diastolic 58–82; PULSE 67–100; RESP 16–20; TEMP 35.9–37; O2SAT 93–100
[2024-10-21] MEDS: HYDROmorphone HCL INJ (*CRX) 2 MG/ML VIAL 0.5 MG IV PUSH (00:50)
[2024-10-21] MEDS: IPRATROPIUM 0.5 MG/ALBUTEROL SULFATE 2.5 MG AMPUL.NEB 3 ML INHALATION ×4 (01:16→20:25)
[2024-10-21] MEDS: ACETAMINOPHEN 500 MG TABLET 1000 MG PO (05:31)
[2024-10-21] MEDS: LEVOTHYROXINE SODIUM 150 MCG TABLET PO (05:32)
[2024-10-21 05:43] LABS: Glucose Point of Care 91 mg/dl (65-105)
[2024-10-21 06:47] LABS: Basophils Absolute Auto 0.1 K/mm3 (0.0-0.1); Basophils Percent Auto 0.7 % (0.2-1.2); Eosinophils Absolute Auto 0.8 K/mm3 (0-0.3); Hematocrit 27.4 % (37.0-47.0); Hemoglobin 8.8 g/dL (12.0-15.0); Immature Granulocyte Absolute 0.32 K/mm3 (0.00-0.031); Immature Granulocyte Percent A 2.8 % (0-0.5); Lymphocytes Absolute Auto 1.43 K/mm3 (0.9-3.2); Lymphocytes Percent Auto 12.5 % (18.3-44.2); Mean Corpuscular HGB Conc 32.1 g/dl (32-36); Mean Corpuscular Hemoglobin 29.2 pg (26-34); Mean Platelet Volume 9.8 fl (7.4-10.4); Monocytes Absolute Auto 0.9 K/mm3 (0.1-0.6); Monocytes Percent Auto 7.5 % (2.6-8.5); Neutrophils Percent Auto 69.5 % (45.5-73.1); Nucleated Red Blood Cells Perc 0.2 % (0.0-0.2); Platelet Count Result 247 k/mm3 (150-375); Red Blood Count 3.01 M/mm3 (4.2-5.4); Red Cell Distribution Width 17.7 % (11.5-14.5); White Blood Count 11.5 K/mm3 (4.5-10.0)
[2024-10-21 06:59] LABS: Alanine Aminotransferase 56 U/L (6-35); Albumin Level 3.1 g/dL (3.5-5.1); Alkaline Phosphatase 275 U/L (38-126); Anion Gap 8 mmol/L (4-12); Aspartate Amino Transferase 34 U/L (14-36); Bilirubin,Total 0.8 mg/dL (0.2-1.3); Blood Urea Nitrogen 44 mg/dL (7-17); Calcium 8.4 mg/dL (8.4-10.2); Carbon Dioxide 27 mmol/L (22-30); Chloride 98 mmol/L (98-107); Estimated CRCL calculation 8 ml/min; Estimated Glomerular Filt Rate 8; Glucose 91 mg/dL (65-110); Potassium 3.9 mmol/L (3.4-5.0); Sodium 133 mmol/L (137-145); Total Protein 5.6 g/dL (6.3-8.2)
--- NOTE | 2024-10-21 10:55 | P.PNNP_ITS ---
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 on [employer]/dialysis due to volume overload unresponsive to diuretic therapy * no critical electrolytes but issues with hyponatremia noted * fluid removal with HD as tolerated * follow respiratory status * suspect will need ongoing dialytic support for a significant period of time... * s/p tunneled HD catheter placement on 10/20/24 * HD today and continue T/T/S schedule for now until discharge disposition finalized * follow trend of repeat labs and UOP to assess for potential renal recovery (2) Acute hypoxic respiratory failure: Code(s): J96.01 - Acute respiratory failure with hypoxia Status: Chronic Assessment and Plan: * clinically better/resolving * felt more related to renal failure than overt CHF * initial imaging with evidence of pulmonary edema/pleural effusions * ongoing fluid removal with HD as tolerated * monitor respiratory status * given CXR findings and tachypnea on 10/15, s/p DUF for further fluid removal * CT of chest (on 10/16) results noted: * large right and moderate left-sided pleural effusions with adjacent compressive atelectasis * however, repeat imaging with minimal effusions -- thoracentesis cancelled * supplemental oxygen PRN (3) CHF (congestive heart failure): Code(s): I50.9 - Heart failure, unspecified Status: Acute Assessment and Plan: * recent Echo noted: * left ventricle is normal in size and systolic function * left ventricular ejection fraction is visually estimated to be 60-65% * paradoxical septal wall motion abnormality suggestive of bundle-branch block * right ventricle is normal in size and systolic function * no significant valvular abnormalities. * suspect volume overload/pulmonary edema/pleural effusion secondary to renal failure than CHF * failed trial of diuretic therapy * ongoing fluid removal with HD to acheive/maintain euvolemia (4) Anemia: Code(s): D64.9 - Anemia, unspecified Status: Acute Assessment and Plan: * related to CHAD and acute illness * drop in H/H noted on 10/17 - blood transfusion following rapid response * drop in H/H further on 10/18 evening (received blood transfusion) * complicated by epistaxis * anemia studies noted: * adequate iron stores * B12 and folate good * Epogen with HD * PRBC transfusion per protocol * GI following intermittently * s/p EGD on 10/18 - no active bleeding lesions noted * holding Eliquis * follow trend of H/H (5) Atrial fibrillation with RVR: Code(s): I48.91 - Unspecified atrial fibrillation Status: Acute Assessment and Plan: * Cardiology recommendations noted * diltiazem for rate control * was on anticoagulation (Eliquis) - on hold due to #4 and epistaxis (6) Elevated liver enzymes: Code(s): R74.8 - Abnormal levels of other serum enzymes Status: Acute Assessment and Plan: * as noted on admission * slow improvement noted by trend (if not normalization) * thought to be related to altered hemodynamics/previous hypotension * GI recommendations noted (7) Hypertension: Qualifiers: Hypertension type: unspecified Qualified Code(s): I10 - Essential (primary) hypertension Code(s): I10 - Essential (primary) hypertension Status: Chronic Assessment and Plan: * clinically better at this time * back on diltiazem (more so for rate control) * follow trend of hemodynamics (8) Diabetes: Code(s): E11.9 - Type 2 diabetes mellitus without complications Status: Acute Assessment and Plan: * follow accu-checks * glycemic control per hospitalist Will continue to follow. L Subjective Date/time seen: 10/21/24 10:55 Interval history: Follow-up for acute kidney injury/acute renal failure (now requiring [employer]/hemodialysis). Tolerating dialysis treatment at the time of my visit (seen on HD at 10:45AM); s/p tunneled HD catheter placement yesterday afternoon and tolerated this intervention as well; left rhino pack still in place; no acute distress noted when seen; no other issues/events overnight or earlier this morning. Exam 2 Narrative: General: elderly and mildly ill-appearing female in NAD Heart: normal S1 and S2; no rub Lungs: clear anteriorly; diminished at bases Abdomen: soft, nontender, nondistended, positive bowel sounds Extremities: no cyanosis or clubbing; no edema Skin: warm and intact Objective Data Vital Signs Vital Signs: Vital Signs Temp Pulse Resp BP Pulse Ox O2 Del Method FiO2 10/21/24 10:45 73 160/80 H 10/21/24 10:15 69 157/58 H 10/21/24 10:00 67 158/69 H 10/21/24 09:45 70 137/79 10/21/24 09:30 69 163/82 H 10/21/24 09:15 72 159/76 H 10/21/24 09:00 75 153/77 H 10/21/24 08:48 97.8 F 74 18 158/76 H 10/21/24 08:45 75 153/72 H 10/21/24 08:00 Room Air 10/21/24 08:00 78 10/21/24 07:04 97.4 F L 68 18 142/61 H 97 10/21/24 06:07 97.8 F 75 16 150/63 H 98 10/21/24 04:00 75 10/21/24 02:57 96.7 F L 77 16 153/68 H 95 10/21/24 01:32 72 20 10/21/24 01:16 71 20 10/21/24 00:16 97.4 F L 78 16 147/63 H 99 10/21/24 00:00 72 10/20/24 20:51 75 20 10/20/24 20:31 78 20 92 Room Air 21 10/20/24 20:30 76 20 10/20/24 20:00 78 10/20/24 19:55 97.7 F 62 16 146/62 H 100 10/20/24 19:04 97.7 F 77 12 146/62 H 100 10/20/24 18:25 97.1 F L 80 18 155/60 H 100 10/20/24 17:55 97.1 F L 82 18 162/70 H 100 10/20/24 17:15 97.4 F L 78 17 141/60 H 98 Room Air 10/20/24 17:00 79 14 147/68 H 97 Room Air 10/20/24 16:45 80 18 149/63 H 98 Room Air 10/20/24 16:30 84 17 142/64 H 96 Room Air 10/20/24 16:15 84 19 138/65 98 Room Air 10/20/24 16:04 97.6 F 88 10 L 135/66 96 Room Air 10/20/24 16:00 98.1 F 84 18 150/70 H 99 Intake/Output Intake/Output: Intake & Output 10/18/24 10/19/24 10/20/24 10/21/24 23:59 23:59 23:59 23:59 Intake Total 1220 290 220 530 Output Total 200 2583 011 3960 Balance 1020 -810 20 -473 Meds/Results Medications: Active Medications Generic Name Dose Route Start Last Admin Trade Name Freq PRN Reason Stop Dose Admin Acetaminophen 500 mg 10/10/24 23:07 10/20/24 19:33 Acetaminophen 500 Mg Tablet PO 500 mg Q6H PRN Administration Mild Pain (1-3) or Fever Acetaminophen 1,000 mg 10/20/24 21:09 10/21/24 05:31 Acetaminophen 500 Mg Tablet PO 1,000 mg Q6H PRN Administration PAIN 4-6 Albuterol/Ipratropium 3 ml 10/13/24 02:00 10/21/24 14:13 Ipratropium 0.5 Mg/Albuterol Sulfate 2.5 Mg Ampul.Neb 3 Ml INHALATION 3 ml Q6HRT JIGNA Administration Apixaban 5 mg 10/14/24 12:00 10/17/24 08:47 Apixaban 5 Mg Tablet PO 5 mg Q12HR JIGNA Administration Aspirin 81 mg 10/10/24 09:00 10/21/24 12:46 Aspirin 81 Mg Enteric Tablet PO 81 mg DAILY JIGNA Administration Buspirone HCl 5 mg 10/12/24 11:30 10/21/24 12:46 Buspirone Hcl 5 Mg Tablet PO 5 mg Q12HR JIGNA Administration Dextrose 12.5 gm 10/09/24 20:02 Dextrose 50% 25 Gm/50 Ml Syringe IV PUSH PRN PRN Hypoglycemia Protocol Diltiazem HCl 120 mg 10/11/24 12:00 10/21/24 12:46 Diltiazem Hcl Cd 120 Mg Cap.24hr PO 120 mg QAM JIGNA Administration Epoetin August-epbx 10,000 units 10/21/24 18:15 10/21/24 12:10 Epoetin August-Epbx 10,000 Units/Ml Vial IV PUSH 10/21/24 18:16 10,000 units ONCE ONE Administration Escitalopram Oxalate 20 mg 10/10/24 09:00 10/17/24 08:47 Escitalopram Oxalate 10 Mg Tablet PO 20 mg DAILY JIGNA Administration Fentanyl Citrate 25 mcg 10/20/24 14:01 10/20/24 16:54 Fentanyl Citrate Inj (*Crx) 100 Mcg/2 Ml Vial IV PUSH 25 mcg Q2M PRN Administration Pain Glucagon 1 mg 10/09/24 20:02 Glucagon For Inj 1 Mg Vial IM PRN PRN Hypoglycemia Protocol Glucose 15 gm 10/09/24 20:02 Glucose Oral Gel 15 Gm Of Glucse In 37.5 Gm Tube PO PRN PRN Hypoglycemia Protocol Hydromorphone HCl 0.5 mg 10/20/24 18:43 10/21/24 00:50 Hydromorphone Hcl Inj (*Crx) 2 Mg/Ml Vial IV PUSH 0.5 mg Q3H PRN Administration Pain Rated 7-10 Dextrose 1,000 mls @ 100 mls/hr 10/09/24 20:02 Dextrose 5% 1,000 Ml IVPB PRN PRN Hypoglycemia Protocol Albumin Human 50 mls @ 999 mls/hr 10/12/24 12:35 10/19/24 11:22 Albutein IVPB 11/11/24 12:34 Infused Q10M PRN Infusion HYPOTENSION Insulin Aspart 2 - 5 units 10/10/24 00:00 10/21/24 12:52 Insulin Aspart (*Bkc) 100 Units/Ml SUB-Q Not Given Q6HR [facility] Protocol Levothyroxine Sodium 125 mcg 10/10/24 06:30 10/20/24 06:21 Levothyroxine Sodium 125 Mcg Tablet BY MOUTH Not Given Q48H JIGNA Levothyroxine Sodium 150 mcg 10/11/24 06:30 10/21/24 05:32 Levothyroxine Sodium 150 Mcg Tablet PO 150 mcg Q48H JIGNA Administration Montelukast Sodium 10 mg 10/09/24 21:35 10/20/24 20:24 Montelukast Sodium 10 Mg Tablet BY MOUTH 10 mg QHS JIGNA Administration Ondansetron HCl 4 mg 10/20/24 14:01 Ondansetron Inj 4 Mg/2 Ml Vial IV PUSH ONCE PRN Nausea Oxymetazoline HCl 1 spray 10/17/24 12:43 10/18/24 01:21 Oxymetazoline Hcl 0.05% Pete 15 Ml Btl (*Bkc) NASAL 1 spray Q12HR PRN Administration Dryness Prochlorperazine Edisylate 10 mg 10/18/24 12:20 10/21/24 12:46 Prochlorperazine Edisylate 10 Mg/2 Ml Vial IV PUSH 10 mg Q6H PRN Administration Nausea And Vomiting Prochlorperazine Maleate 5 mg 10/16/24 22:44 10/18/24 00:15 Prochlorperazine Maleate 5 Mg Tablet PO 5 mg Q6H PRN Administration Nausea And Vomiting Radiology Results: ITS Impressions Abdomen/Pelvis CT 10/09/24 16:08 IMPRESSION: Trace pericardial effusion. Scattered calcified and noncalcified sub-6 mm pulmonary nodules, likely representing granulomas. Mild inflammatory change surrounding the pancreatic head and uncinate process, correlate for clinical findings of pancreatitis. Mild inflammatory stranding/edema in the proximal bile ducts, presumably related to the pancreatic process, noting that ascending cholangitis could appear similarly. Mild dilation of the third and fourth portions of the duodenum, presumably ileus related to the pancreatic process. Abdomen X-Ray 10/10/24 06:55 Impression: No acute abnormality is seen. Irregular markedly hyperdense opacity in the pelvis. Correlate for surgical/procedural history or traumatic history/foreign body. Renal Ultrasound 10/10/24 11:35 Impression: Unremarkable ultrasound of the kidneys and urinary bladder. Chest CT 10/16/24 15:48 IMPRESSION: Large right and moderate left-sided pleural effusions with adjacent compressive atelectasis. Findings within the right middle and upper lobes suggesting asymmetric pulmonary edema. Small pericardial effusion. Chest X-Ray 10/20/24 16:16 IMPRESSION: Bilateral opacification suggestive of pneumonia more prominent in the right lung base. Underlying pulmonary edema is not excluded. Labs Labs: Laboratory Tests 10/21/24 06:19 10/21/24 06:19 Calcium 8.4 Total Bilirubin 0.8 AST 34 ALT 56 H Alkaline Phosphatase 275 H Total Protein 5.6 L Albumin 3.1 L
--- NOTE | 2024-10-21 11:00 | PCNFU ---
Nutrition Follow-Up Complete: Suboptimal po intake related to appetite as evidenced by pt report Goal: PO intake greater than 50% Patient has limited progress towards goal. We will continue current goal. Pt current nutrition is Renal Dialysis with Nepro shakes BID. Bowel Motility: Last reported BM 10/19 Labs Reviewed:PO4 4.9, Na 133, BUN 44, Hct 27.4, Hgb 8.8 Meds Noted: NovoLog,Buspar, NS Skin: WNL Additional Notes: Patient had dialysis catheter placed. Dialysis today. Diet order has changed to Renal Dialysis diet with Nepro shakes BID. Oral Intake has been poor 25-50% of meals. PO Intake encouraged. Agree with diet orders. Monitor intake, wt, labs. Follow up in 5 days.
--- NOTE | 2024-10-21 11:23 | PCPTNOTE ---
Attempted to see patient for PT, however patient was out of the room for dialysis.
[2024-10-21 11:42] LABS: ANCA Screen NEGATIVE (NEGATIVE)
[2024-10-21] MEDS: EPOETIN ALFA-EPBX 10,000 UNITS/ML VIAL 10000 UNITS IV PUSH (12:10)
[2024-10-21] MEDS: busPIRone HCL 5 MG TABLET PO ×2 (12:46→21:05)
[2024-10-21] MEDS: dilTIAZem HCL CD 120 MG CAP.24HR PO (12:46)
[2024-10-21] MEDS: PROCHLORPERAZINE EDISYLATE 10 MG/2 ML VIAL IV PUSH (12:46)
[2024-10-21] MEDS: ASPIRIN 81 MG ENTERIC TABLET PO (12:46)
[2024-10-21 12:56] LABS: Glucose Point of Care 81 mg/dl (65-105)
--- NOTE | 2024-10-21 14:58 | PM.IMPN ---
Progress Note: A&P Assessment and Plan (1) CHAD (acute kidney injury): Code(s): N17.9 - Acute kidney failure, unspecified Status: Acute Assessment and Plan: with fluid overload on temporary dialysis The placement of a permanent dialysis catheter tomorrow Nephrology following Trend creatinine monitor (2) Constipation: Code(s): K59.00 - Constipation, unspecified Status: Acute Assessment and Plan: Senna (3) Diabetes: Code(s): E11.9 - Type 2 diabetes mellitus without complications Status: Acute Assessment and Plan: Accu-Cheks q.6 SSI Hold home diabetes medications (4) Hypertension: Qualifiers: Hypertension type: unspecified Qualified Code(s): I10 - Essential (primary) hypertension Code(s): I10 - Essential (primary) hypertension Status: Chronic Assessment and Plan: home emds on hold as hypotensive (5) CHF (congestive heart failure): Code(s): I50.9 - Heart failure, unspecified Status: Acute Assessment and Plan: Last echo 2021 ejection fraction 55-60% cardiology on board (6) Atrial fibrillation with RVR: Code(s): I48.91 - Unspecified atrial fibrillation Status: Acute Assessment and Plan: new onset of afib Continue Cardizem 120mg and holding Eliquis 5mg bid po due to epistaxis (7) Anemia: Code(s): D64.9 - Anemia, unspecified Status: Acute Assessment and Plan: Evidence of black tarry stool Hemoglobin dropped from 9.2-7.2 from yesterday 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 Previous history of a bleeding ulcer EGD no significant finding Transfused 2 unit PRBC due to symptomatic anemia (syncope) (8) Nasal bleeding: Code(s): R04.0 - Epistaxis Status: Acute Assessment and Plan: Nasal clamp as needed Status post Afrin-soaked nasal pack No bleeding down posterior pharynx Possibly due to dry nasal nares from oxygen nasal cannula ED physician evaluated and following recommendation ENT consult Plan Ischemic hepatitis AST/ALT 4607/3007, today 134/517 Bili 3.9 now 1.8 Hep B antibody negative GI following Bronchospasm On duoneb treatment Reports intermitted nausea today QTc 511- so ideally avoid medication that could prolong it DVT prophylaxis on Eliquis on hold due to epistaxis Subjective Date/time seen: 10/21/24 14:58 Interval history: Patient had tunneled dialysis catheter on 10/20/2024. Patient underwent dialysis today. Patient still has a rhino pack on her left nares. Further management of rhino pack from ENT. Review of Systems Review of Systems: 12 systems were reviewed and are negative except for as per HPI. Exam Narrative: General: well appearing, appears stated age. HEENT: normocephalic, atraumatic. Mucous membranes moist. EOMI, PERRLA, bilateral sclera anicteric, no conjunctival injection. Neck supple without JVD, lymphadenopathy, or bruit. Respiratory: clear to ascultation bilaterally. No rales/rhonic/wheezes. Cardiovascular: normal S1-S2 upon ascultation. No murmurs, rubs, or clicks. PMI is nondisplaced, capillary refill less than 3 second. Abdomen: Soft, round, no pulsatile masses, nondistended and nontender. No rebound, no guarding. No CVA tenderness, no hepatosplenomegaly. Bowel sounds present Extremities: No cyanosis, clubbing, or edema present. Pulses are palpable 2/2. Active ROM to all four extremities. Neuro: Alert and orientated x 4. PERRLA. Cranial nerves 2-12 intact without focal deficit. Skin: Warm, dry, and intact, without rash, erythema, or lesion. Psych: pleasant, cooperative, normal speech, normal affect, no hallucinations, no dysarthia Const: General: comfortable Objective Data Vital Signs Vital Signs: Vital Signs - 24 hr 10/20/24 16:00 10/20/24 16:04 10/20/24 16:15 Temperature 98.1 F 97.6 F Pulse Rate 84 88 84 Respiratory Rate 18 10 L 19 Blood Pressure 150/70 H 135/66 138/65 Pulse Oximetry 99 96 98 Oxygen Delivery Room Air Room Air Fraction of Inspired Oxygen 10/20/24 16:30 10/20/24 16:45 10/20/24 17:00 Temperature Pulse Rate 84 80 79 Respiratory Rate 17 18 14 Blood Pressure 142/64 H 149/63 H 147/68 H Pulse Oximetry 96 98 97 Oxygen Delivery Room Air Room Air Room Air Fraction of Inspired Oxygen 10/20/24 17:15 10/20/24 17:55 10/20/24 18:25 Temperature 97.4 F L 97.1 F L 97.1 F L Pulse Rate 78 82 80 Respiratory Rate 17 18 18 Blood Pressure 141/60 H 162/70 H 155/60 H Pulse Oximetry 98 100 100 Oxygen Delivery Room Air Fraction of Inspired Oxygen 10/20/24 19:04 10/20/24 19:55 10/20/24 20:00 Temperature 97.7 F 97.7 F Pulse Rate 77 62 78 Respiratory Rate 12 16 Blood Pressure 146/62 H 146/62 H Pulse Oximetry 100 100 Oxygen Delivery Fraction of Inspired Oxygen 10/20/24 20:30 10/20/24 20:31 10/20/24 20:51 Temperature Pulse Rate 76 78 75 Respiratory Rate 20 20 20 Blood Pressure Pulse Oximetry 92 Oxygen Delivery Room Air Fraction of Inspired Oxygen 21 10/21/24 00:00 10/21/24 00:16 10/21/24 01:16 Temperature 97.4 F L Pulse Rate 72 78 71 Respiratory Rate 16 20 Blood Pressure 147/63 H Pulse Oximetry 99 Oxygen Delivery Fraction of Inspired Oxygen 10/21/24 01:32 10/21/24 02:57 10/21/24 04:00 Temperature 96.7 F L Pulse Rate 72 77 75 Respiratory Rate 20 16 Blood Pressure 153/68 H Pulse Oximetry 95 Oxygen Delivery Fraction of Inspired Oxygen 10/21/24 06:07 10/21/24 07:04 10/21/24 08:00 Temperature 97.8 F 97.4 F L Pulse Rate 75 68 78 Respiratory Rate 16 18 Blood Pressure 150/63 H 142/61 H Pulse Oximetry 98 97 Oxygen Delivery Fraction of Inspired Oxygen 10/21/24 08:00 10/21/24 08:45 10/21/24 08:48 Temperature 97.8 F Pulse Rate 75 74 Respiratory Rate 18 Blood Pressure 153/72 H 158/76 H Pulse Oximetry Oxygen Delivery Room Air Fraction of Inspired Oxygen 10/21/24 09:00 10/21/24 09:15 10/21/24 09:30 Temperature Pulse Rate 75 72 69 Respiratory Rate Blood Pressure 153/77 H 159/76 H 163/82 H Pulse Oximetry Oxygen Delivery Fraction of Inspired Oxygen 10/21/24 09:45 10/21/24 10:00 10/21/24 10:15 Temperature Pulse Rate 70 67 69 Respiratory Rate Blood Pressure 137/79 158/69 H 157/58 H Pulse Oximetry Oxygen Delivery Fraction of Inspired Oxygen 10/21/24 10:45 10/21/24 11:00 10/21/24 11:04 Temperature 97.9 F Pulse Rate 73 70 100 Respiratory Rate 20 Blood Pressure 160/80 H 164/78 H 144/72 H Pulse Oximetry 100 Oxygen Delivery Fraction of Inspired Oxygen 10/21/24 11:15 10/21/24 11:30 10/21/24 11:45 Temperature Pulse Rate 86 78 79 Respiratory Rate Blood Pressure 184/67 H 161/72 H 166/79 H Pulse Oximetry Oxygen Delivery Fraction of Inspired Oxygen 10/21/24 12:00 10/21/24 12:14 10/21/24 12:27 Temperature 97.8 F Pulse Rate 77 74 78 Respiratory Rate 18 Blood Pressure 157/81 H 142/75 H 155/75 H Pulse Oximetry Oxygen Delivery Fraction of Inspired Oxygen 10/21/24 14:14 10/21/24 14:14 10/21/24 14:20 Temperature Pulse Rate 83 86 Respiratory Rate 20 20 Blood Pressure Pulse Oximetry 93 Oxygen Delivery Room Air Fraction of Inspired Oxygen 21 Intake/Output Intake/Output: Intake & Output 10/18/24 10/19/24 10/20/24 10/21/24 23:59 23:59 23:59 23:59 Intake Total 1220 290 220 290 Output Total 200 7640 452 4100 Balance 1020 -810 20 -710 Meds/Results Medications: Active Medications Generic Name Dose Route Start Last Admin Trade Name Freq PRN Reason Stop Dose Admin Acetaminophen 500 mg 10/10/24 23:07 10/20/24 19:33 Acetaminophen 500 Mg Tablet PO 500 mg Q6H PRN Administration Mild Pain (1-3) or Fever Acetaminophen 1,000 mg 10/20/24 21:09 10/21/24 05:31 Acetaminophen 500 Mg Tablet PO 1,000 mg Q6H PRN Administration PAIN 4-6 Albuterol/Ipratropium 3 ml 10/13/24 02:00 10/21/24 14:13 Ipratropium 0.5 Mg/Albuterol Sulfate 2.5 Mg Ampul.Neb 3 Ml INHALATION 3 ml Q6HRT JIGNA Administration Apixaban 5 mg 10/14/24 12:00 10/17/24 08:47 Apixaban 5 Mg Tablet PO 5 mg Q12HR JIGNA Administration Aspirin 81 mg 10/10/24 09:00 10/21/24 12:46 Aspirin 81 Mg Enteric Tablet PO 81 mg DAILY JIGNA Administration Buspirone HCl 5 mg 10/12/24 11:30 10/21/24 12:46 Buspirone Hcl 5 Mg Tablet PO 5 mg Q12HR JIGNA Administration Dextrose 12.5 gm 10/09/24 20:02 Dextrose 50% 25 Gm/50 Ml Syringe IV PUSH PRN PRN Hypoglycemia Protocol Diltiazem HCl 120 mg 10/11/24 12:00 10/21/24 12:46 Diltiazem Hcl Cd 120 Mg Cap.24hr PO 120 mg QAM JIGNA Administration Epoetin August-epbx 10,000 units 10/21/24 18:15 10/21/24 12:10 Epoetin August-Epbx 10,000 Units/Ml Vial IV PUSH 10/21/24 18:16 10,000 units ONCE ONE Administration Escitalopram Oxalate 20 mg 10/10/24 09:00 10/17/24 08:47 Escitalopram Oxalate 10 Mg Tablet PO 20 mg DAILY JIGNA Administration Fentanyl Citrate 25 mcg 10/20/24 14:01 10/20/24 16:54 Fentanyl Citrate Inj (*Crx) 100 Mcg/2 Ml Vial IV PUSH 25 mcg Q2M PRN Administration Pain Glucagon 1 mg 10/09/24 20:02 Glucagon For Inj 1 Mg Vial IM PRN PRN Hypoglycemia Protocol Glucose 15 gm 10/09/24 20:02 Glucose Oral Gel 15 Gm Of Glucse In 37.5 Gm Tube PO PRN PRN Hypoglycemia Protocol Hydromorphone HCl 0.5 mg 10/20/24 18:43 10/21/24 00:50 Hydromorphone Hcl Inj (*Crx) 2 Mg/Ml Vial IV PUSH 0.5 mg Q3H PRN Administration Pain Rated 7-10 Dextrose 1,000 mls @ 100 mls/hr 10/09/24 20:02 Dextrose 5% 1,000 Ml IVPB PRN PRN Hypoglycemia Protocol Albumin Human 50 mls @ 999 mls/hr 10/12/24 12:35 10/19/24 11:22 Albutein IVPB 11/11/24 12:34 Infused Q10M PRN Infusion HYPOTENSION Insulin Aspart 2 - 5 units 10/10/24 00:00 10/21/24 12:52 Insulin Aspart (*Bkc) 100 Units/Ml SUB-Q Not Given Q6HR [facility] Protocol Levothyroxine Sodium 125 mcg 10/10/24 06:30 10/20/24 06:21 Levothyroxine Sodium 125 Mcg Tablet BY MOUTH Not Given Q48H [facility] Levothyroxine Sodium 150 mcg 10/11/24 06:30 10/21/24 05:32 Levothyroxine Sodium 150 Mcg Tablet PO 150 mcg Q48H JIGNA Administration Montelukast Sodium 10 mg 10/09/24 21:35 10/20/24 20:24 Montelukast Sodium 10 Mg Tablet BY MOUTH 10 mg QHS [facility] Administration Ondansetron HCl 4 mg 10/20/24 14:01 Ondansetron Inj 4 Mg/2 Ml Vial IV PUSH ONCE PRN Nausea Oxymetazoline HCl 1 spray 10/17/24 12:43 10/18/24 01:21 Oxymetazoline Hcl 0.05% Pete 15 Ml Btl (*Bkc) NASAL 1 spray Q12HR PRN Administration Dryness Prochlorperazine Edisylate 10 mg 10/18/24 12:20 10/21/24 12:46 Prochlorperazine Edisylate 10 Mg/2 Ml Vial IV PUSH 10 mg Q6H PRN Administration Nausea And Vomiting Prochlorperazine Maleate 5 mg 10/16/24 22:44 10/18/24 00:15 Prochlorperazine Maleate 5 Mg Tablet PO 5 mg Q6H PRN Administration Nausea And Vomiting Radiology Results: ITS Impressions Abdomen/Pelvis CT 10/09/24 16:08 IMPRESSION: Trace pericardial effusion. Scattered calcified and noncalcified sub-6 mm pulmonary nodules, likely representing granulomas. Mild inflammatory change surrounding the pancreatic head and uncinate process, correlate for clinical findings of pancreatitis. Mild inflammatory stranding/edema in the proximal bile ducts, presumably related to the pancreatic process, noting that ascending cholangitis could appear similarly. Mild dilation of the third and fourth portions of the duodenum, presumably ileus related to the pancreatic process. Abdomen X-Ray 10/10/24 06:55 Impression: No acute abnormality is seen. Irregular markedly hyperdense opacity in the pelvis. Correlate for surgical/procedural history or traumatic history/foreign body. Renal Ultrasound 10/10/24 11:35 Impression: Unremarkable ultrasound of the kidneys and urinary bladder. Chest CT 10/16/24 15:48 IMPRESSION: Large right and moderate left-sided pleural effusions with adjacent compressive atelectasis. Findings within the right middle and upper lobes suggesting asymmetric pulmonary edema. Small pericardial effusion. Chest X-Ray 10/20/24 16:16 IMPRESSION: Bilateral opacification suggestive of pneumonia more prominent in the right lung base. Underlying pulmonary edema is not excluded. Labs Labs: Laboratory Results - last 24 hr 10/17/24 10/20/24 10/20/24 04:27 16:10 17:43 WBC RBC Hgb Hct MCV MCH MCHC RDW Plt Count MPV Immature Gran % (Auto) Neut % (Auto) Lymph % (Auto) [place] % (Auto) Eos % (Auto) Baso % (Auto) Lymph # (Auto) [place] # (Auto) Eos # (Auto) Baso # (Auto) Abs Immat Gran (auto) Absolute Neuts (auto) Absolute Nucleated RBC Nucleated RBC % Sodium Potassium Chloride Carbon Dioxide Anion Gap BUN Creatinine Estim Creat Clear Calc Estimated GFR Glucose POC Capillary Glucose 96 88 Calcium Total Bilirubin AST ALT Alkaline Phosphatase Total Protein Albumin ANCA Screen Negative 10/20/24 10/21/24 10/21/24 23:27 05:40 06:19 WBC 11.5 H RBC 3.01 L Hgb 8.8 L Hct 27.4 L MCV 91.0 MCH 29.2 MCHC 32.1 RDW 17.7 H Plt Count 247 MPV 9.8 Immature Gran % (Auto) 2.8 H Neut % (Auto) 69.5 Lymph % (Auto) 12.5 L [place] % (Auto) 7.5 Eos % (Auto) 7.0 H Baso % (Auto) 0.7 Lymph # (Auto) 1.43 [place] # (Auto) 0.9 H Eos # (Auto) 0.8 H Baso # (Auto) 0.1 Abs Immat Gran (auto) 0.32 H Absolute Neuts (auto) 8.0 H Absolute Nucleated RBC 0.020 H Nucleated RBC % 0.2 Sodium 133 L Potassium 3.9 Chloride 98 Carbon Dioxide 27 Anion Gap 8 BUN 44 H Creatinine 5.44 H Estim Creat Clear Calc 8 Estimated GFR 8 L Glucose 91 POC Capillary Glucose 90 91 Calcium 8.4 Total Bilirubin 0.8 AST 34 ALT 56 H Alkaline Phosphatase 275 H Total Protein 5.6 L Albumin 3.1 L ANCA Screen 10/21/24 12:52 WBC RBC Hgb Hct MCV MCH MCHC RDW Plt Count MPV Immature Gran % (Auto) Neut % (Auto) Lymph % (Auto) [place] % (Auto) Eos % (Auto) Baso % (Auto) Lymph # (Auto) [place] # (Auto) Eos # (Auto) Baso # (Auto) Abs Immat Gran (auto) Absolute Neuts (auto) Absolute Nucleated RBC Nucleated RBC % Sodium Potassium Chloride Carbon Dioxide Anion Gap BUN Creatinine Estim Creat Clear Calc Estimated GFR Glucose POC Capillary Glucose 81 Calcium Total Bilirubin AST ALT Alkaline Phosphatase Total Protein Albumin ANCA Screen Quality VTE Prophylaxis VTE prophylaxis: mechanical ordered Hospitalist MIPS Advance Care Plan I have confirmed that the patient's Advanced Care Plan is present, code status is documented, or surrogate decision maker is listed in patient medical record.: Yes Medication Reconciliation I have utilized all available resources to obtain, update and review the patients current medications (includes all prescriptions, OTC, herbals, cannabis, and nutritional supplements).: Yes
[2024-10-21] MEDS: NEOMYCIN/POLYMYXIN/BACITRACIN OINTMENT PACKET 1 PACKET (15:21)
[2024-10-21 17:10] LABS: Glucose Point of Care 99 mg/dl (65-105)
[2024-10-21 18:03] LABS: Soluble Transferrin Receptor 0.94 mg/L (0.76-1.76)
--- NOTE | 2024-10-21 18:05 | WPDPN ---
Progress Note: A&P Assessment and Plan (1) Nasal bleeding: Code(s): R04.0 - Epistaxis Status: Acute Plan Removed rhinorocket. No further epistaxis. Call ENT if there is return of epistaxis, but first return to using nasal clamp and afrin if needed. Avoid anticoagulation unless necessary per judgement of medical team. Epistaxis precautions reviewed. Subjective Date/time seen: 10/21/24 18:05 Interval history: No further epistaxis. Pt had tunneled dialysis cath placed 10/20. Still with tarry stool. Exam Narrative: No blood in oropharynx. After consent obtained, the left rhinorocket was deflated and removed. This was well tolerated. No bleeding afterwards. Objective Data Vital Signs Vital Signs: Vital Signs - 24 hr 10/20/24 18:25 10/20/24 19:04 10/20/24 19:55 Temperature 36.2 C L 36.5 C 36.5 C Pulse Rate 80 77 62 Respiratory Rate 18 12 16 Blood Pressure 155/60 H 146/62 H 146/62 H Pulse Oximetry 100 100 100 Oxygen Delivery Fraction of Inspired Oxygen 10/20/24 20:00 10/20/24 20:30 10/20/24 20:31 Temperature Pulse Rate 78 76 78 Respiratory Rate 20 20 Blood Pressure Pulse Oximetry 92 Oxygen Delivery Room Air Fraction of Inspired Oxygen 21 10/20/24 20:51 10/21/24 00:00 10/21/24 00:16 Temperature 36.3 C L Pulse Rate 75 72 78 Respiratory Rate 20 16 Blood Pressure 147/63 H Pulse Oximetry 99 Oxygen Delivery Fraction of Inspired Oxygen 10/21/24 01:16 10/21/24 01:32 10/21/24 02:57 Temperature 35.9 C L Pulse Rate 71 72 77 Respiratory Rate 20 20 16 Blood Pressure 153/68 H Pulse Oximetry 95 Oxygen Delivery Fraction of Inspired Oxygen 10/21/24 04:00 10/21/24 06:07 10/21/24 07:04 Temperature 36.6 C 36.3 C L Pulse Rate 75 75 68 Respiratory Rate 16 18 Blood Pressure 150/63 H 142/61 H Pulse Oximetry 98 97 Oxygen Delivery Fraction of Inspired Oxygen 10/21/24 08:00 10/21/24 08:00 10/21/24 08:45 Temperature Pulse Rate 78 75 Respiratory Rate Blood Pressure 153/72 H Pulse Oximetry Oxygen Delivery Room Air Fraction of Inspired Oxygen 10/21/24 08:48 10/21/24 09:00 10/21/24 09:15 Temperature 36.6 C Pulse Rate 74 75 72 Respiratory Rate 18 Blood Pressure 158/76 H 153/77 H 159/76 H Pulse Oximetry Oxygen Delivery Fraction of Inspired Oxygen 10/21/24 09:30 10/21/24 09:45 10/21/24 10:00 Temperature Pulse Rate 69 70 67 Respiratory Rate Blood Pressure 163/82 H 137/79 158/69 H Pulse Oximetry Oxygen Delivery Fraction of Inspired Oxygen 10/21/24 10:15 10/21/24 10:45 10/21/24 11:00 Temperature Pulse Rate 69 73 70 Respiratory Rate Blood Pressure 157/58 H 160/80 H 164/78 H Pulse Oximetry Oxygen Delivery Fraction of Inspired Oxygen 10/21/24 11:04 10/21/24 11:15 10/21/24 11:30 Temperature 36.6 C Pulse Rate 100 86 78 Respiratory Rate 20 Blood Pressure 144/72 H 184/67 H 161/72 H Pulse Oximetry 100 Oxygen Delivery Fraction of Inspired Oxygen 10/21/24 11:45 10/21/24 12:00 10/21/24 12:00 Temperature Pulse Rate 79 77 73 Respiratory Rate Blood Pressure 166/79 H 157/81 H Pulse Oximetry Oxygen Delivery Fraction of Inspired Oxygen 10/21/24 12:14 10/21/24 12:27 10/21/24 14:14 Temperature 36.6 C Pulse Rate 74 78 Respiratory Rate 18 Blood Pressure 142/75 H 155/75 H Pulse Oximetry 93 Oxygen Delivery Room Air Fraction of Inspired Oxygen 21 10/21/24 14:14 10/21/24 14:20 10/21/24 15:04 Temperature 36.4 C Pulse Rate 83 86 70 Respiratory Rate 20 20 20 Blood Pressure 140/60 Pulse Oximetry 98 Oxygen Delivery Fraction of Inspired Oxygen 10/21/24 16:00 Temperature Pulse Rate 83 Respiratory Rate Blood Pressure Pulse Oximetry Oxygen Delivery Fraction of Inspired Oxygen Intake/Output Intake/Output: Intake & Output 10/18/24 10/19/24 10/20/24 10/21/24 23:59 23:59 23:59 23:59 Intake Total 1220 290 220 530 Output Total 200 8327 966 3297 Balance 1020 -810 20 -473 Meds/Results Medications: Active Medications Generic Name Dose Route Start Last Admin Trade Name Freq PRN Reason Stop Dose Admin Acetaminophen 500 mg 10/10/24 23:07 10/20/24 19:33 Acetaminophen 500 Mg Tablet PO 500 mg Q6H PRN Administration Mild Pain (1-3) or Fever Acetaminophen 1,000 mg 10/20/24 21:09 10/21/24 05:31 Acetaminophen 500 Mg Tablet PO 1,000 mg Q6H PRN Administration PAIN 4-6 Albuterol/Ipratropium 3 ml 10/13/24 02:00 10/21/24 14:13 Ipratropium 0.5 Mg/Albuterol Sulfate 2.5 Mg Ampul.Neb 3 Ml INHALATION 3 ml Q6HRT JIGNA Administration Apixaban 5 mg 10/14/24 12:00 10/17/24 08:47 Apixaban 5 Mg Tablet PO 5 mg Q12HR JIGNA Administration Aspirin 81 mg 10/10/24 09:00 10/21/24 12:46 Aspirin 81 Mg Enteric Tablet PO 81 mg DAILY JIGNA Administration Buspirone HCl 5 mg 10/12/24 11:30 10/21/24 12:46 Buspirone Hcl 5 Mg Tablet PO 5 mg Q12HR JIGNA Administration Dextrose 12.5 gm 10/09/24 20:02 Dextrose 50% 25 Gm/50 Ml Syringe IV PUSH PRN PRN Hypoglycemia Protocol Diltiazem HCl 120 mg 10/11/24 12:00 10/21/24 12:46 Diltiazem Hcl Cd 120 Mg Cap.24hr PO 120 mg QAM JIGNA Administration Epoetin August-epbx 10,000 units 10/21/24 18:15 10/21/24 12:10 Epoetin August-Epbx 10,000 Units/Ml Vial IV PUSH 10/21/24 18:16 10,000 units ONCE ONE Administration Escitalopram Oxalate 20 mg 10/10/24 09:00 10/17/24 08:47 Escitalopram Oxalate 10 Mg Tablet PO 20 mg DAILY JIGNA Administration Fentanyl Citrate 25 mcg 10/20/24 14:01 10/20/24 16:54 Fentanyl Citrate Inj (*Crx) 100 Mcg/2 Ml Vial IV PUSH 25 mcg Q2M PRN Administration Pain Glucagon 1 mg 10/09/24 20:02 Glucagon For Inj 1 Mg Vial IM PRN PRN Hypoglycemia Protocol Glucose 15 gm 10/09/24 20:02 Glucose Oral Gel 15 Gm Of Glucse In 37.5 Gm Tube PO PRN PRN Hypoglycemia Protocol Hydromorphone HCl 0.5 mg 10/20/24 18:43 10/21/24 00:50 Hydromorphone Hcl Inj (*Crx) 2 Mg/Ml Vial IV PUSH 0.5 mg Q3H PRN Administration Pain Rated 7-10 Dextrose 1,000 mls @ 100 mls/hr 10/09/24 20:02 Dextrose 5% 1,000 Ml IVPB PRN PRN Hypoglycemia Protocol Albumin Human 50 mls @ 999 mls/hr 10/12/24 12:35 10/19/24 11:22 Albutein IVPB 11/11/24 12:34 Infused Q10M PRN Infusion HYPOTENSION Insulin Aspart 2 - 5 units 10/10/24 00:00 10/21/24 17:18 Insulin Aspart (*Bkc) 100 Units/Ml SUB-Q Not Given Q6HR JIGNA Protocol Levothyroxine Sodium 125 mcg 10/10/24 06:30 10/20/24 06:21 Levothyroxine Sodium 125 Mcg Tablet BY MOUTH Not Given Q48H JIGNA Levothyroxine Sodium 150 mcg 10/11/24 06:30 10/21/24 05:32 Levothyroxine Sodium 150 Mcg Tablet PO 150 mcg Q48H JIGNA Administration Montelukast Sodium 10 mg 10/09/24 21:35 10/20/24 20:24 Montelukast Sodium 10 Mg Tablet BY MOUTH 10 mg QHS JIGNA Administration Ondansetron HCl 4 mg 10/20/24 14:01 Ondansetron Inj 4 Mg/2 Ml Vial IV PUSH ONCE PRN Nausea Oxymetazoline HCl 1 spray 10/17/24 12:43 10/18/24 01:21 Oxymetazoline Hcl 0.05% Pete 15 Ml Btl (*Bkc) NASAL 1 spray Q12HR PRN Administration Dryness Prochlorperazine Edisylate 10 mg 10/18/24 12:20 10/21/24 12:46 Prochlorperazine Edisylate 10 Mg/2 Ml Vial IV PUSH 10 mg Q6H PRN Administration Nausea And Vomiting Prochlorperazine Maleate 5 mg 10/16/24 22:44 10/18/24 00:15 Prochlorperazine Maleate 5 Mg Tablet PO 5 mg Q6H PRN Administration Nausea And Vomiting Radiology Results: ITS Impressions Abdomen/Pelvis CT 10/09/24 16:08 IMPRESSION: Trace pericardial effusion. Scattered calcified and noncalcified sub-6 mm pulmonary nodules, likely representing granulomas. Mild inflammatory change surrounding the pancreatic head and uncinate process, correlate for clinical findings of pancreatitis. Mild inflammatory stranding/edema in the proximal bile ducts, presumably related to the pancreatic process, noting that ascending cholangitis could appear similarly. Mild dilation of the third and fourth portions of the duodenum, presumably ileus related to the pancreatic process. Abdomen X-Ray 10/10/24 06:55 Impression: No acute abnormality is seen. Irregular markedly hyperdense opacity in the pelvis. Correlate for surgical/procedural history or traumatic history/foreign body. Renal Ultrasound 10/10/24 11:35 Impression: Unremarkable ultrasound of the kidneys and urinary bladder. Chest CT 10/16/24 15:48 IMPRESSION: Large right and moderate left-sided pleural effusions with adjacent compressive atelectasis. Findings within the right middle and upper lobes suggesting asymmetric pulmonary edema. Small pericardial effusion. Chest X-Ray 10/20/24 16:16 IMPRESSION: Bilateral opacification suggestive of pneumonia more prominent in the right lung base. Underlying pulmonary edema is not excluded. Labs Labs: Laboratory Results - last 24 hr 10/17/24 10/17/24 10/20/24 04:27 09:34 23:27 WBC RBC Hgb Hct MCV MCH MCHC RDW Plt Count MPV Immature Gran % (Auto) Neut % (Auto) Lymph % (Auto) Villalba % (Auto) Eos % (Auto) Baso % (Auto) Lymph # (Auto) Villalba # (Auto) Eos # (Auto) Baso # (Auto) Abs Immat Gran (auto) Absolute Neuts (auto) Absolute Nucleated RBC Nucleated RBC % Sodium Potassium Chloride Carbon Dioxide Anion Gap BUN Creatinine Estim Creat Clear Calc Estimated GFR Glucose POC Capillary Glucose 90 Calcium Cassie Transferrin Receptr 0.94 Total Bilirubin AST ALT Alkaline Phosphatase Total Protein Albumin ANCA Screen Negative 10/21/24 10/21/24 10/21/24 05:40 06:19 12:52 WBC 11.5 H RBC 3.01 L Hgb 8.8 L Hct 27.4 L MCV 91.0 MCH 29.2 MCHC 32.1 RDW 17.7 H Plt Count 247 MPV 9.8 Immature Gran % (Auto) 2.8 H Neut % (Auto) 69.5 Lymph % (Auto) 12.5 L Villalba % (Auto) 7.5 Eos % (Auto) 7.0 H Baso % (Auto) 0.7 Lymph # (Auto) 1.43 Villalba # (Auto) 0.9 H Eos # (Auto) 0.8 H Baso # (Auto) 0.1 Abs Immat Gran (auto) 0.32 H Absolute Neuts (auto) 8.0 H Absolute Nucleated RBC 0.020 H Nucleated RBC % 0.2 Sodium 133 L Potassium 3.9 Chloride 98 Carbon Dioxide 27 Anion Gap 8 BUN 44 H Creatinine 5.44 H Estim Creat Clear Calc 8 Estimated GFR 8 L Glucose 91 POC Capillary Glucose 91 81 Calcium 8.4 Cassie Transferrin Receptr Total Bilirubin 0.8 AST 34 ALT 56 H Alkaline Phosphatase 275 H Total Protein 5.6 L Albumin 3.1 L ANCA Screen 10/21/24 17:00 WBC RBC Hgb Hct MCV MCH MCHC RDW Plt Count MPV Immature Gran % (Auto) Neut % (Auto) Lymph % (Auto) Villalba % (Auto) Eos % (Auto) Baso % (Auto) Lymph # (Auto) Villalba # (Auto) Eos # (Auto) Baso # (Auto) Abs Immat Gran (auto) Absolute Neuts (auto) Absolute Nucleated RBC Nucleated RBC % Sodium Potassium Chloride Carbon Dioxide Anion Gap BUN Creatinine Estim Creat Clear Calc Estimated GFR Glucose POC Capillary Glucose 99 Calcium Cassie Transferrin Receptr Total Bilirubin AST ALT Alkaline Phosphatase Total Protein Albumin ANCA Screen
[2024-10-21] MEDS: MONTELUKAST SODIUM 10 MG TABLET BY MOUTH (20:54)
[2024-10-21 23:41] LABS: Glucose Point of Care 103 mg/dl (65-105)
[2024-10-22] VITALS (16 sets, daily range): BP systolic 119–158; BP diastolic 53–73; PULSE 72–98; RESP 16–20; TEMP 36.3–36.5; O2SAT 95–100
--- NOTE | 2024-10-22 04:21 | PCRCNOTE ---
Patient asked this RT to not wake her up for her 0200 updraft treatment. Treatment to resume at 0800.
[2024-10-22 05:02] LABS: Hematocrit 25.6 % (37.0-47.0); Hemoglobin 8.1 g/dL (12.0-15.0); Mean Corpuscular HGB Conc 31.6 g/dl (32-36); Mean Corpuscular Hemoglobin 29.3 pg (26-34); Mean Corpuscular Volume 92.8 fl (80-100); Platelet Count Result 229 k/mm3 (150-375); Red Blood Count 2.76 M/mm3 (4.2-5.4); Red Cell Distribution Width 18.1 % (11.5-14.5); White Blood Count 11.2 K/mm3 (4.5-10.0)
[2024-10-22 05:14] LABS: Alanine Aminotransferase 28 U/L (6-35); Albumin Level 2.7 g/dL (3.5-5.1); Alkaline Phosphatase 230 U/L (38-126); Anion Gap 6 mmol/L (4-12); Aspartate Amino Transferase 28 U/L (14-36); Bilirubin,Total 0.7 mg/dL (0.2-1.3); Blood Urea Nitrogen 25 mg/dL (7-17); Calcium 8.2 mg/dL (8.4-10.2); Carbon Dioxide 23 mmol/L (22-30); Chloride 104 mmol/L (98-107); Estimated CRCL calculation 10 ml/min; Estimated Glomerular Filt Rate 11; Glucose 85 mg/dL (65-110); Phosphorus 3.1 mg/dL (2.5-4.5); Potassium 3.7 mmol/L (3.4-5.0); Sodium 133 mmol/L (137-145); Total Protein 5.2 g/dL (6.3-8.2)
[2024-10-22 05:15] LABS: INR 1.2; Prothrombin Time 14.9 Seconds (11.1-14.7)
[2024-10-22 05:55] LABS: Glucose Point of Care 94 mg/dl (65-105)
[2024-10-22] MEDS: LEVOTHYROXINE SODIUM 125 MCG TABLET BY MOUTH (06:16)
--- NOTE | 2024-10-22 07:44 | P.PNIM_ITS ---
Progress Note: A&P Assessment and Plan (1) CHAD (acute kidney injury): Code(s): N17.9 - Acute kidney failure, unspecified Status: Acute Assessment and Plan: with fluid overload on temporary dialysis Patient had tunneled dialysis catheter on 10/20/2024. Nephrology following Trend creatinine monitor (2) Constipation: Code(s): K59.00 - Constipation, unspecified Status: Acute Assessment and Plan: Senna (3) Diabetes: Code(s): E11.9 - Type 2 diabetes mellitus without complications Status: Acute Assessment and Plan: Accu-Cheks q.6 SSI Hold home diabetes medications (4) Hypertension: Qualifiers: Hypertension type: unspecified Qualified Code(s): I10 - Essential (primary) hypertension Code(s): I10 - Essential (primary) hypertension Status: Chronic Assessment and Plan: home emds on hold as hypotensive (5) CHF (congestive heart failure): Code(s): I50.9 - Heart failure, unspecified Status: Acute Assessment and Plan: Last echo 2021 ejection fraction 55-60% cardiology on board (6) Atrial fibrillation with RVR: Code(s): I48.91 - Unspecified atrial fibrillation Status: Acute Assessment and Plan: new onset of afib Continue Cardizem 120mg and holding Eliquis 5mg bid po due to epistaxis and ongoing anemia (7) Anemia: Code(s): D64.9 - Anemia, unspecified Status: Acute Assessment and Plan: Evidence of black tarry stool Hemoglobin stable at 8.1 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 on hold Previous history of a bleeding ulcer EGD no significant finding Transfused 2 unit PRBC due to symptomatic anemia (syncope) (8) Nasal bleeding: Code(s): R04.0 - Epistaxis Status: Acute Assessment and Plan: Nasal clamp as needed Status post Afrin-soaked nasal pack No bleeding down posterior pharynx Possibly due to dry nasal nares from oxygen nasal cannula ED physician evaluated and following recommendation ENT consult Status post rhino rocket Plan Ischemic hepatitis AST/ALT 4607/3007, today 134/517 Bili 3.9 now 1.8 Hep B antibody negative GI following Bronchospasm On duoneb treatment Reports intermitted nausea today QTc 511- so ideally avoid medication that could prolong it DVT prophylaxis on Eliquis on hold due to epistaxis Subjective Date/time seen: 10/22/24 07:44 Interval history: During the evaluation discussed about risk versus benefits of holding the anticoagulation. Patient will be benefited by having Watchman device or continue anticoagulation after discussing with mapping editor as an outpatient. Patient wants to discuss with Dr. Veloz. Will consult Cardiology if Dr. Veloz is on-call tomorrow. Removed rhino rocket by ENT yesterday. No further epistaxis. Patient will undergo dialysis as per Nephrology. Review of Systems Review of Systems: 12 systems were reviewed and are negativ e except for as per HPI. Exam Narrative: General: well appearing, appears stated age. HEENT: normocephalic, atraumatic. Mucous membranes moist. EOMI, PERRLA, bilateral sclera anicteric, no conjunctival injection. Neck supple without JVD, lymphadenopathy, or bruit. Respiratory: clear to ascultation bilaterally. No rales/rhonic/wheezes. Cardiovascular: normal S1-S2 upon ascultation. No murmurs, rubs, or clicks. PMI is nondisplaced, capillary refill less than 3 second. Abdomen: Soft, round, no pulsatile masses, nondistended and nontender. No rebound, no guarding. No CVA tenderness, no hepatosplenomegaly. Bowel sounds present Extremities: No cyanosis, clubbing, or edema present. Pulses are palpable 2/2. Active ROM to all four extremities. Neuro: Alert and orientated x 4. PERRLA. Cranial nerves 2-12 intact without focal deficit. Skin: Warm, dry, and intact, without rash, erythema, or lesion. Psych: pleasant, cooperative, normal speech, normal affect, no hallucinations, no dysarthia Const: General: comfortable Objective Data Vital Signs Vital Signs: Vital Signs - 24 hr 10/21/24 08:00 10/21/24 08:00 10/21/24 08:45 Temperature Pulse Rate 78 75 Respiratory Rate Blood Pressure 153/72 H Pulse Oximetry Oxygen Delivery Room Air Fraction of Inspired Oxygen 10/21/24 08:48 10/21/24 09:00 10/21/24 09:15 Temperature 97.8 F Pulse Rate 74 75 72 Respiratory Rate 18 Blood Pressure 158/76 H 153/77 H 159/76 H Pulse Oximetry Oxygen Delivery Fraction of Inspired Oxygen 10/21/24 09:30 10/21/24 09:45 10/21/24 10:00 Temperature Pulse Rate 69 70 67 Respiratory Rate Blood Pressure 163/82 H 137/79 158/69 H Pulse Oximetry Oxygen Delivery Fraction of Inspired Oxygen 10/21/24 10:15 10/21/24 10:45 10/21/24 11:00 Temperature Pulse Rate 69 73 70 Respiratory Rate Blood Pressure 157/58 H 160/80 H 164/78 H Pulse Oximetry Oxygen Delivery Fraction of Inspired Oxygen 10/21/24 11:04 10/21/24 11:15 10/21/24 11:30 Temperature 97.9 F Pulse Rate 100 86 78 Respiratory Rate 20 Blood Pressure 144/72 H 184/67 H 161/72 H Pulse Oximetry 100 Oxygen Delivery Fraction of Inspired Oxygen 10/21/24 11:45 10/21/24 12:00 10/21/24 12:00 Temperature Pulse Rate 79 77 73 Respiratory Rate Blood Pressure 166/79 H 157/81 H Pulse Oximetry Oxygen Delivery Fraction of Inspired Oxygen 10/21/24 12:14 10/21/24 12:27 10/21/24 14:14 Temperature 97.8 F Pulse Rate 74 78 Respiratory Rate 18 Blood Pressure 142/75 H 155/75 H Pulse Oximetry 93 Oxygen Delivery Room Air Fraction of Inspired Oxygen 21 10/21/24 14:14 10/21/24 14:20 10/21/24 15:04 Temperature 97.6 F Pulse Rate 83 86 70 Respiratory Rate 20 20 20 Blood Pressure 140/60 Pulse Oximetry 98 Oxygen Delivery Fraction of Inspired Oxygen 10/21/24 16:00 10/21/24 19:04 10/21/24 20:00 Temperature 98.2 F Pulse Rate 83 82 84 Respiratory Rate 18 Blood Pressure 122/61 Pulse Oximetry 97 Oxygen Delivery Fraction of Inspired Oxygen 10/21/24 20:25 10/21/24 20:25 10/21/24 20:35 Temperature Pulse Rate 83 83 84 Respiratory Rate 20 20 Blood Pressure Pulse Oximetry 98 Oxygen Delivery Room Air Fraction of Inspired Oxygen 21 06/20/25 00:00 10/22/24 04:00 10/22/24 04:43 Temperature 97.6 F Pulse Rate 84 84 98 Respiratory Rate 16 Blood Pressure 150/72 H Pulse Oximetry 98 Oxygen Delivery Fraction of Inspired Oxygen Intake/Output Intake/Output: Intake & Output 10/19/24 10/20/24 10/21/24 10/22/24 23:59 23:59 23:59 23:59 Intake Total 064 783 0305 100 Output Total 9392 516 5388 Balance -810 20 3 100 Meds/Results Medications: Active Medications Generic Name Dose Route Start Last Admin Trade Name Freq PRN Reason Stop Dose Admin Acetaminophen 500 mg 10/10/24 23:07 10/20/24 19:33 Acetaminophen 500 Mg Tablet PO 500 mg Q6H PRN Administration Mild Pain (1-3) or Fever Acetaminophen 1,000 mg 10/20/24 21:09 10/21/24 05:31 Acetaminophen 500 Mg Tablet PO 1,000 mg Q6H PRN Administration PAIN 4-6 Albuterol/Ipratropium 3 ml 10/13/24 02:00 10/22/24 04:21 Ipratropium 0.5 Mg/Albuterol Sulfate 2.5 Mg Ampul.Neb 3 Ml INHALATION Not Given Q6HRT JIGNA Apixaban 5 mg 10/14/24 12:00 10/17/24 08:47 Apixaban 5 Mg Tablet PO 5 mg Q12HR JIGNA Administration Aspirin 81 mg 10/10/24 09:00 10/21/24 12:46 Aspirin 81 Mg Enteric Tablet PO 81 mg DAILY JIGNA Administration Buspirone HCl 5 mg 10/12/24 11:30 10/21/24 21:05 Buspirone Hcl 5 Mg Tablet PO 5 mg Q12HR JIGNA Administration Dextrose 12.5 gm 10/09/24 20:02 Dextrose 50% 25 Gm/50 Ml Syringe IV PUSH PRN PRN Hypoglycemia Protocol Diltiazem HCl 120 mg 10/11/24 12:00 10/21/24 12:46 Diltiazem Hcl Cd 120 Mg Cap.24hr PO 120 mg QAM JIGNA Administration Escitalopram Oxalate 20 mg 10/10/24 09:00 10/17/24 08:47 Escitalopram Oxalate 10 Mg Tablet PO 20 mg DAILY JIGNA Administration Fentanyl Citrate 25 mcg 10/20/24 14:01 10/20/24 16:54 Fentanyl Citrate Inj (*Crx) 100 Mcg/2 Ml Vial IV PUSH 25 mcg Q2M PRN Administration Pain Glucagon 1 mg 10/09/24 20:02 Glucagon For Inj 1 Mg Vial IM PRN PRN Hypoglycemia Protocol Glucose 15 gm 10/09/24 20:02 Glucose Oral Gel 15 Gm Of Glucse In 37.5 Gm Tube PO PRN PRN Hypoglycemia Protocol Hydromorphone HCl 0.5 mg 10/20/24 18:43 10/21/24 00:50 Hydromorphone Hcl Inj (*Crx) 2 Mg/Ml Vial IV PUSH 0.5 mg Q3H PRN Administration Pain Rated 7-10 Dextrose 1,000 mls @ 100 mls/hr 10/09/24 20:02 Dextrose 5% 1,000 Ml IVPB PRN PRN Hypoglycemia Protocol Albumin Human 50 mls @ 999 mls/hr 10/12/24 12:35 10/19/24 11:22 Albutein IVPB 11/11/24 12:34 Infused Q10M PRN Infusion HYPOTENSION Insulin Aspart 2 - 5 units 10/10/24 00:00 10/22/24 06:15 Insulin Aspart (*Bkc) 100 Units/Ml SUB-Q Not Given Q6HR JIGNA Protocol Levothyroxine Sodium 125 mcg 10/10/24 06:30 10/22/24 06:16 Levothyroxine Sodium 125 Mcg Tablet BY MOUTH 125 mcg Q48H JIGNA Administration Levothyroxine Sodium 150 mcg 10/11/24 06:30 10/21/24 05:32 Levothyroxine Sodium 150 Mcg Tablet PO 150 mcg Q48H JIGNA Administration Montelukast Sodium 10 mg 10/09/24 21:35 10/21/24 20:54 Montelukast Sodium 10 Mg Tablet BY MOUTH 10 mg QHS JIGNA Administration Ondansetron HCl 4 mg 10/20/24 14:01 Ondansetron Inj 4 Mg/2 Ml Vial IV PUSH ONCE PRN Nausea Oxymetazoline HCl 1 spray 10/17/24 12:43 10/18/24 01:21 Oxymetazoline Hcl 0.05% Pete 15 Ml Btl (*Bkc) NASAL 1 spray Q12HR PRN Administration Dryness Prochlorperazine Edisylate 10 mg 10/18/24 12:20 10/21/24 12:46 Prochlorperazine Edisylate 10 Mg/2 Ml Vial IV PUSH 10 mg Q6H PRN Administration Nausea And Vomiting Prochlorperazine Maleate 5 mg 10/16/24 22:44 10/18/24 00:15 Prochlorperazine Maleate 5 Mg Tablet PO 5 mg Q6H PRN Administration Nausea And Vomiting Radiology Results: ITS Impressions Abdomen/Pelvis CT 10/09/24 16:08 IMPRESSION: Trace pericardial effusion. Scattered calcified and noncalcified sub-6 mm pulmonary nodules, likely representing granulomas. Mild inflammatory change surrounding the pancreatic head and uncinate process, correlate for clinical findings of pancreatitis. Mild inflammatory stranding/edema in the proximal bile ducts, presumably related to the pancreatic process, noting that ascending cholangitis could appear similarly. Mild dilation of the third and fourth portions of the duodenum, presumably ileus related to the pancreatic process. Abdomen X-Ray 10/10/24 06:55 Impression: No acute abnormality is seen. Irregular markedly hyperdense opacity in the pelvis. Correlate for surgical/procedural history or traumatic history/foreign body. Renal Ultrasound 10/10/24 11:35 Impression: Unremarkable ultrasound of the kidneys and urinary bladder. Chest CT 10/16/24 15:48 IMPRESSION: Large right and moderate left-sided pleural effusions with adjacent compressive atelectasis. Findings within the right middle and upper lobes suggesting asymmetric pulmonary edema. Small pericardial effusion. Chest X-Ray 10/20/24 16:16 IMPRESSION: Bilateral opacification suggestive of pneumonia more prominent in the right lung base. Underlying pulmonary edema is not excluded. Labs Labs: Laboratory Results - last 24 hr 10/17/24 10/17/24 10/21/24 04:27 09:34 12:52 WBC RBC Hgb Hct MCV MCH MCHC RDW Plt Count MPV PT INR Sodium Potassium Chloride Carbon Dioxide Anion Gap BUN Creatinine Estim Creat Clear Calc Estimated GFR Glucose POC Capillary Glucose 81 Calcium Phosphorus Magnesium Cassie Transferrin Receptr 0.94 Total Bilirubin AST ALT Alkaline Phosphatase Total Protein Albumin ANCA Screen Negative 10/21/24 10/21/24 10/22/24 17:00 23:36 04:29 WBC 11.2 H RBC 2.76 L Hgb 8.1 L Hct 25.6 L MCV 92.8 MCH 29.3 MCHC 31.6 L RDW 18.1 H Plt Count 229 MPV 10.0 PT 14.9 H INR 1.2 Sodium 133 L Potassium 3.7 Chloride 104 Carbon Dioxide 23 Anion Gap 6 BUN 25 H D Creatinine 4.03 H Estim Creat Clear Calc 10 Estimated GFR 11 L Glucose 85 POC Capillary Glucose 99 103 Calcium 8.2 L Phosphorus 3.1 Magnesium 2.0 Cassie Transferrin Receptr Total Bilirubin 0.7 AST 28 ALT 28 Alkaline Phosphatase 230 H Total Protein 5.2 L Albumin 2.7 L ANCA Screen 10/22/24 05:52 WBC RBC Hgb Hct MCV MCH MCHC RDW Plt Count MPV PT INR Sodium Potassium Chloride Carbon Dioxide Anion Gap BUN Creatinine Estim Creat Clear Calc Estimated GFR Glucose POC Capillary Glucose 94 Calcium Phosphorus Magnesium Cassie Transferrin Receptr Total Bilirubin AST ALT Alkaline Phosphatase Total Protein Albumin ANCA Screen Quality VTE Prophylaxis VTE prophylaxis: mechanical ordered Hospitalist MIPS Advance Care Plan I have confirmed that the patient's Advanced Care Plan is present, code status is documented, or surrogate decision maker is listed in patient medical record.: Yes Medication Reconciliation I have utilized all available resources to obtain, update and review the patients current medications (includes all prescriptions, OTC, herbals, canna bis, and nutritional supplements).: Yes
[2024-10-22] MEDS: IPRATROPIUM 0.5 MG/ALBUTEROL SULFATE 2.5 MG AMPUL.NEB 3 ML INHALATION ×3 (08:34→20:42)
[2024-10-22 08:45] LABS: Glucose Point of Care 86 mg/dl (65-105)
[2024-10-22] MEDS: ASPIRIN 81 MG ENTERIC TABLET PO (08:48)
[2024-10-22] MEDS: dilTIAZem HCL CD 120 MG CAP.24HR PO (08:48)
[2024-10-22] MEDS: busPIRone HCL 5 MG TABLET PO ×2 (08:48→23:42)
--- NOTE | 2024-10-22 10:56 | P.PNNP_ITS ---
Progress Note: A&P Assessment and Plan (1) CHAD (acute kidney injury): Code(s): N17.9 - Acute kidney failure, unspecified Status: Acute Assessment and Plan: * ongoing deterioration noted since admission * relatively normal creatinine at baseline * suspect multifactorial: * hypotension/hemodynamic instability * prerenal factors * ARB use prior to admission * Afib * other(?) * evaluation to date noted: * normal renal ultrasound * CPK normal * urine eosinophils negative * urine electrolyte prerenal * proteinuria noted * admission UA noted * serologies negative to date * suspicion falls on ATN from significant hypotension/hemodynamic instability on admission * initiated on [facility] [facility]/dialysis due to volume overload unresponsive to diuretic therapy * no critical electrolytes but issues with hyponatremia noted * fluid removal with HD as tolerated * follow respiratory status * suspect will need ongoing dialytic support for a significant period of time... * s/p tunneled HD catheter placement on 10/20/24 * HD tomorrow and continue T/T/S schedule for now until discharge disposition finalized * follow trend of repeat labs and UOP to assess for potential renal recovery (2) Acute hypoxic respiratory failure: Code(s): J96.01 - Acute respiratory failure with hypoxia Status: Chronic Assessment and Plan: * clinically better/resolving * felt more related to renal failure than overt CHF * initial imaging with evidence of pulmonary edema/pleural effusions * ongoing fluid removal with HD as tolerated * monitor respiratory status * given CXR findings and tachypnea on 10/15, s/p DUF for further fluid removal * CT of chest (on 10/16) results noted: * large right and moderate left-sided pleural effusions with adjacent compressive atelectasis * however, repeat imaging with minimal effusions -- thoracentesis cancelled * supplemental oxygen PRN (3) CHF (congestive heart failure): Code(s): I50.9 - Heart failure, unspecified Status: Acute Assessment and Plan: * recent Echo noted: * left ventricle is normal in size and systolic function * left ventricular ejection fraction is visually estimated to be 60-65% * paradoxical septal wall motion abnormality suggestive of bundle-branch block * right ventricle is normal in size and systolic function * no significant valvular abnormalities. * suspect volume overload/pulmonary edema/pleural effusion secondary to renal failure than CHF * failed trial of diuretic therapy * ongoing fluid removal with HD to acheive/maintain euvolemia (4) Anemia: Code(s): D64.9 - Anemia, unspecified Status: Acute Assessment and Plan: * related to CHAD and acute illness * drop in H/H noted on 10/17 - blood transfusion following rapid response * drop in H/H further on 10/18 evening (received blood transfusion) * complicated by epistaxis * anemia studies noted: * adequate iron stores * B12 and folate good * Epogen with HD * PRBC transfusion per protocol * GI following intermittently * s/p EGD on 10/18 - no active bleeding lesions noted * holding Eliquis * follow trend of H/H (5) Atrial fibrillation with RVR: Code(s): I48.91 - Unspecified atrial fibrillation Status: Acute Assessment and Plan: * Cardiology recommendations noted * diltiazem for rate control * was on anticoagulation (Eliquis) - on hold due to #4 and epistaxis (6) Elevated liver enzymes: Code(s): R74.8 - Abnormal levels of other serum enzymes Status: Acute Assessment and Plan: * as noted on admission * slow improvement noted by trend (if not normalization) * thought to be related to altered hemodynamics/previous hypotension * GI recommendations noted (7) Hypertension: Qualifiers: Hypertension type: unspecified Qualified Code(s): I10 - Essential (primary) hypertension Code(s): I10 - Essential (primary) hypertension Status: Chronic Assessment and Plan: * clinically better at this time * back on diltiazem (more so for rate control) * follow trend of hemodynamics (8) Diabetes: Code(s): E11.9 - Type 2 diabetes mellitus without complications Status: Acute Assessment and Plan: * follow accu-checks * glycemic control per hospitalist Will continue to follow. L Subjective Date/time seen: 10/22/24 10:56 Interval history: Follow-up for acute kidney injury/acute renal failure (now requiring [facility] [facility]/hemodialysis). Tolerated dialysis treatment yesterday without any issues or problems; rhino rocket removed by ENT yesterday and no further epistaxis noted at the time of my visit; still not making much urine at this time; H/H remains relatively stable as well. Exam 2 Narrative: General: elderly and mildly ill-appearing female in NAD Heart: normal S1 and S2; no rub Lungs: clear anteriorly; diminished at bases Abdomen: soft, nontender, nondistended, positive bowel sounds Extremities: no cyanosis or clubbing; no edema Skin: no rash or nodules Objective Data Vital Signs Vital Signs: Vital Signs Temp Pulse Resp BP Pulse Ox O2 Del Method FiO2 10/22/24 08:48 93 20 10/22/24 08:47 97.4 F L 93 16 152/72 H 100 10/22/24 08:35 92 20 10/22/24 08:35 92 20 95 Room Air 10/22/24 08:00 Room Air 10/22/24 08:00 85 10/22/24 04:43 97.6 F 98 16 150/72 H 98 10/22/24 04:00 84 10/22/24 00:00 84 10/21/24 20:35 84 20 10/21/24 20:25 83 98 Room Air 21 10/21/24 20:25 83 20 10/21/24 20:00 84 10/21/24 19:04 98.2 F 82 18 122/61 97 Intake/Output Intake/Output: Intake & Output 10/19/24 10/20/24 10/21/24 10/22/24 23:59 23:59 23:59 23:59 Intake Total 659 254 9936 820 Output Total 4853 286 5088 Balance -810 20 3 820 Meds/Results Medications: Active Medications Generic Name Dose Route Start Last Admin Trade Name Prestonq PRN Reason Stop Dose Admin Acetaminophen 500 mg 10/10/24 23:07 10/20/24 19:33 Acetaminophen 500 Mg Tablet PO 500 mg Q6H PRN Administration Mild Pain (1-3) or Fever Acetaminophen 1,000 mg 10/20/24 21:09 10/21/24 05:31 Acetaminophen 500 Mg Tablet PO 1,000 mg Q6H PRN Administration PAIN 4-6 Albuterol/Ipratropium 3 ml 10/22/24 20:00 Ipratropium 0.5 Mg/Albuterol Sulfate 2.5 Mg Ampul.Neb 3 Ml INHALATION [id number] JIGNA Apixaban 5 mg 10/14/24 12:00 10/17/24 08:47 Apixaban 5 Mg Tablet PO 5 mg Q12HR JIGNA Administration Aspirin 81 mg 10/10/24 09:00 10/22/24 08:48 Aspirin 81 Mg Enteric Tablet PO 81 mg DAILY JIGNA Administration Buspirone HCl 5 mg 10/12/24 11:30 10/22/24 08:48 Buspirone Hcl 5 Mg Tablet PO 5 mg Q12HR JIGNA Administration Dextrose 12.5 gm 10/09/24 20:02 Dextrose 50% 25 Gm/50 Ml Syringe IV PUSH PRN PRN Hypoglycemia Protocol Diltiazem HCl 120 mg 10/11/24 12:00 10/22/24 08:48 Diltiazem Hcl Cd 120 Mg Cap.24hr PO 120 mg QAM JIGNA Administration Escitalopram Oxalate 20 mg 10/10/24 09:00 10/17/24 08:47 Escitalopram Oxalate 10 Mg Tablet PO 20 mg DAILY JIGNA Administration Fentanyl Citrate 25 mcg 10/20/24 14:01 10/20/24 16:54 Fentanyl Citrate Inj (*Crx) 100 Mcg/2 Ml Vial IV PUSH 25 mcg Q2M PRN Administration Pain Glucagon 1 mg 10/09/24 20:02 Glucagon For Inj 1 Mg Vial IM PRN PRN Hypoglycemia Protocol Glucose 15 gm 10/09/24 20:02 Glucose Oral Gel 15 Gm Of Glucse In 37.5 Gm Tube PO PRN PRN Hypoglycemia Protocol Hydromorphone HCl 0.5 mg 10/20/24 18:43 10/21/24 00:50 Hydromorphone Hcl Inj (*Crx) 2 Mg/Ml Vial IV PUSH 0.5 mg Q3H PRN Administration Pain Rated 7-10 Dextrose 1,000 mls @ 100 mls/hr 10/09/24 20:02 Dextrose 5% 1,000 Ml IVPB PRN PRN Hypoglycemia Protocol Albumin Human 50 mls @ 999 mls/hr 10/12/24 12:35 10/19/24 11:22 Albutein IVPB 11/11/24 12:34 Infused Q10M PRN Infusion HYPOTENSION Insulin Aspart 2 - 5 units 10/10/24 00:00 10/22/24 18:15 Insulin Aspart (*Bkc) 100 Units/Ml SUB-Q Not Given Q6HR JIGNA Protocol Levothyroxine Sodium 125 mcg 10/10/24 06:30 10/22/24 06:16 Levothyroxine Sodium 125 Mcg Tablet BY MOUTH 125 mcg Q48H JIGNA Administration Levothyroxine Sodium 150 mcg 10/11/24 06:30 10/21/24 05:32 Levothyroxine Sodium 150 Mcg Tablet PO 150 mcg Q48H JIGNA Administration Montelukast Sodium 10 mg 10/09/24 21:35 10/21/24 20:54 Montelukast Sodium 10 Mg Tablet BY MOUTH 10 mg QHS JIGNA Administration Ondansetron HCl 4 mg 10/20/24 14:01 Ondansetron Inj 4 Mg/2 Ml Vial IV PUSH ONCE PRN Nausea Oxymetazoline HCl 1 spray 10/17/24 12:43 10/18/24 01:21 Oxymetazoline Hcl 0.05% Pete 15 Ml Btl (*Bkc) NASAL 1 spray Q12HR PRN Administration Dryness Prochlorperazine Edisylate 10 mg 10/18/24 12:20 10/21/24 12:46 Prochlorperazine Edisylate 10 Mg/2 Ml Vial IV PUSH 10 mg Q6H PRN Administration Nausea And Vomiting Prochlorperazine Maleate 5 mg 10/16/24 22:44 10/18/24 00:15 Prochlorperazine Maleate 5 Mg Tablet PO 5 mg Q6H PRN Administration Nausea And Vomiting Radiology Results: ITS Impressions Abdomen/Pelvis CT 10/09/24 16:08 IMPRESSION: Trace pericardial effusion. Scattered calcified and noncalcified sub-6 mm pulmonary nodules, likely representing granulomas. Mild inflammatory change surrounding the pancreatic head and uncinate process, correlate for clinical findings of pancreatitis. Mild inflammatory stranding/edema in the proximal bile ducts, presumably related to the pancreatic process, noting that ascending cholangitis could appear similarly. Mild dilation of the third and fourth portions of the duodenum, presumably ileus related to the pancreatic process. Abdomen X-Ray 10/10/24 06:55 Impression: No acute abnormality is seen. Irregular markedly hyperdense opacity in the pelvis. Correlate for surgical/procedural history or traumatic history/foreign body. Renal Ultrasound 10/10/24 11:35 Impression: Unremarkable ultrasound of the kidneys and urinary bladder. Chest CT 10/16/24 15:48 IMPRESSION: Large right and moderate left-sided pleural effusions with adjacent compressive atelectasis. Findings within the right middle and upper lobes suggesting asymmetric pulmonary edema. Small pericardial effusion. Chest X-Ray 10/20/24 16:16 IMPRESSION: Bilateral opacification suggestive of pneumonia more prominent in the right lung base. Underlying pulmonary edema is not excluded. Labs Labs: Laboratory Tests 10/22/24 04:10/22/24 04:29 Calcium 8.2 L Phosphorus 3.1 Magnesium 2.0 Total Bilirubin 0.7 AST 28 ALT 28 Alkaline Phosphatase 230 H Total Protein 5.2 L Albumin 2.7 L
--- NOTE | 2024-10-22 12:20 | PCOTNOTE ---
Attempted to see pt for OT treatment this AM. Pt declined to participate at this time due to having PT session recently and needing to rest. Will continue per poc duration/frequency.
[2024-10-22 12:41] LABS: Glucose Point of Care 99 mg/dl (65-105)
[2024-10-22 18:14] LABS: Glucose Point of Care 126 mg/dl (65-105)
[2024-10-22] MEDS: MONTELUKAST SODIUM 10 MG TABLET BY MOUTH (23:42)
[2024-10-22] MEDS: ACETAMINOPHEN 500 MG TABLET 1000 MG PO (23:48)
[2024-10-23] VITALS (33 sets, daily range): BP systolic 116–169; BP diastolic 58–85; PULSE 69–97; RESP 14–18; TEMP 36.3–37; O2SAT 98–100
[2024-10-23 00:54] LABS: Glucose Point of Care 110 mg/dl (65-105)
[2024-10-23 05:41] LABS: Glucose Point of Care 91 mg/dl (65-105)
[2024-10-23 05:56] LABS: Basophils Percent Auto 0.4 % (0.2-1.2); Eosinophils Absolute Auto 0.4 K/mm3 (0-0.3); Eosinophils Percent Auto 4.6 % (0-4.4); Hematocrit 25.8 % (37.0-47.0); Hemoglobin 8.4 g/dL (12.0-15.0); Immature Granulocyte Absolute 0.18 K/mm3 (0.00-0.031); Lymphocytes Percent Auto 16.5 % (18.3-44.2); Mean Corpuscular HGB Conc 32.6 g/dl (32-36); Mean Corpuscular Hemoglobin 30.2 pg (26-34); Mean Corpuscular Volume 92.8 fl (80-100); Mean Platelet Volume 10.2 fl (7.4-10.4); Monocytes Percent Auto 10.4 % (2.6-8.5); Neutrophils Percent Auto 66.1 % (45.5-73.1); Platelet Count Result 252 k/mm3 (150-375); Red Blood Count 2.78 M/mm3 (4.2-5.4); Red Cell Distribution Width 18.3 % (11.5-14.5); White Blood Count 9.1 K/mm3 (4.5-10.0)
[2024-10-23 06:18] LABS: Alanine Aminotransferase 17 U/L (6-35); Albumin Level 2.8 g/dL (3.5-5.1); Alkaline Phosphatase 213 U/L (38-126); Anion Gap 6 mmol/L (4-12); Aspartate Amino Transferase 23 U/L (14-36); Bilirubin,Total 0.7 mg/dL (0.2-1.3); Blood Urea Nitrogen 30 mg/dL (7-17); Calcium 8.2 mg/dL (8.4-10.2); Carbon Dioxide 24 mmol/L (22-30); Chloride 102 mmol/L (98-107); Estimated CRCL calculation 7 ml/min; Estimated Glomerular Filt Rate 7; Glucose 84 mg/dL (65-110); Magnesium 2.1 mg/dL (1.6-2.3); Phosphorus 3.9 mg/dL (2.5-4.5); Potassium 3.5 mmol/L (3.4-5.0); Sodium 132 mmol/L (137-145); Total Protein 5.2 g/dL (6.3-8.2)
[2024-10-23] MEDS: LEVOTHYROXINE SODIUM 150 MCG TABLET PO (06:22)
--- NOTE | 2024-10-23 06:57 | P.PNIM_ITS ---
Progress Note: A&P Assessment and Plan (1) CHAD (acute kidney injury): Code(s): N17.9 - Acute kidney failure, unspecified Status: Acute Assessment and Plan: Interval history:78-year-old female with a history of fatty liver, CAD, diabetes type 2, diverticulosis, hypertension, and hyperthyroid presents to the hospital with generalized weakness. Initially, the patient was admitted due to a diagnosi s of cholangitis vs pancreatitis due to elevation of transaminase. Later, it was diagnosed as ischemic hepatopathy due to significantly decreased liver enzymes within 24 hours of fluid resuscitation. However, her creatinine was increased, and initially, she had not debrided dialysis. Now, the patient has a tunneled dialysis catheter and will currently undergo scheduled dialysis. During the hospitalization, the patient had an episode of epistaxis, possibly due to dry nasal nares from oxygen and platelet dysfunction from renal failure. She underwent placement of a rhino rocket in the left nasal cavity, and later, it was removed. The patient also underwent upper EGD due to a previous history of bleeding ulcers, but no significant finding this time. The patient also had pleural effusion and was scheduled for thoracentesis but went for a procedure. There was no evidence of pleural effusion, so they did not undergo the procedure. Possibly, pleural effusion would have been decreased due to dialysis. Currently holding anticoagulation due to anemia and epistaxis. Discussed the risks versus benefits of keeping the anticoagulation. The patient will benefit from having the Watchman device or continuing anticoagulation after debating with a unit manager rn. CHAD with fluid overload on temporary dialysis Patient had tunneled dialysis catheter on 10/20/2024. Nephrology following Trend creatinine monitor (2) Constipation: Code(s): K59.00 - Constipation, unspecified Status: Acute Assessment and Plan: Senna (3) Diabetes: Code(s): E11.9 - Type 2 diabetes mellitus without complications Status: Acute Assessment and Plan: Accu-Cheks q.6 SSI Hold home diabetes medications (4) Hypertension: Qualifiers: Hypertension type: unspecified Qualified Code(s): I10 - Essential (primary) hypertension Code(s): I10 - Essential (primary) hypertension Status: Chronic Assessment and Plan: home emds on hold as hypotensive (5) CHF (congestive heart failure): Code(s): I50.9 - Heart failure, unspecified Status: Acute Assessment and Plan: Last echo 2021 ejection fraction 55-60% cardiology on board (6) Atrial fibrillation with RVR: Code(s): I48.91 - Unspecified atrial fibrillation Status: Acute Assessment and Plan: new onset of afib Continue Cardizem 120mg and holding Eliquis 5mg bid po due to epistaxis and ongoing anemia (7) Anemia: Code(s): D64.9 - Anemia, unspecified Status: Acute Assessment and Plan: Evidence of black tarry stool Hemoglobin stable at 8.1 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 Eliquis on hold Previous history of a bleeding ulcer EGD no significant finding Transfused 2 unit PRBC due to symptomatic anemia (syncope) (8) Nasal bleeding: Code(s): R04.0 - Epistaxis Status: Acute Assessment and Plan: Nasal clamp as needed Status post Afrin-soaked nasal pack No bleeding down posterior pharynx Possibly due to dry nasal nares from oxygen nasal cannula ED physician evaluated and following recommendation ENT consult Status post rhino rocket Plan Ischemic hepatitis AST/ALT 4607/3007, today 134/517 Bili 3.9 now 1.8 Hep B antibody negative GI following Bronchospasm On duoneb treatment Reports intermitted nausea today QTc 511- so ideally avoid medication that could prolong it DVT prophylaxis on Eliquis on hold due to epistaxis Subjective Date/time seen: 10/23/24 06:57 Interval history: Interval history:78-year-old female with a history of fatty liver, CAD, diabetes type 2, diverticulosis, hypertension, and hyperthyroid presents to the hospital with generalized weakness. Initially, the patient was admitted due to a diagnosis of cholangitis vs pancreatitis due to elevation of transaminase. Later, it was diagnosed as ischemic hepatopathy due to significantly decreased liver enzymes within 24 hours of fluid resuscitation. However, her creatinine was increased, and initiated temporary dialysis. Now, the patient has a tunneled dialysis catheter and will currently undergo scheduled dialysis. During the hospitalization, the patient had an episode of epistaxis, possibly due to dry nasal nares from oxygen and platelet dysfunction from renal failure. She underwent placement of a rhino rocket with ENT in the left nasal cavity, and later, it was removed. The patient also underwent upper EGD due to a previous history of bleeding ulcers, but no significant finding this time. The patient also had pleural effusion and was scheduled for thoracentesis but went for a procedure. There was no evidence of pleural effusion, so they did not undergo the procedure. Possibly, pleural effusion would have been decreased due to dialysis. Currently holding anticoagulation due to anemia and epistaxis. Discussed the risks versus benefits of keeping the anticoagulation. The patient will benefit from having the Watchman device or continuing anticoagulation after debating with a unit manager rn. 10/23: Patient feels tired. wants upon discharge to [facility] not to SNF. Will discuss with care coordination. As per nursing Cardiology recommend no anticoagulation which I agree Review of Systems Review of Systems: 12 systems were reviewed and are negativ e except for as per HPI. Exam Narrative: General: well appearing, appears stated age. HEENT: normocephalic, atraumatic. Mucous membranes moist. EOMI, PERRLA, bilateral sclera anicteric, no conjunctival injection. Neck supple without JVD, lymphadenopathy, or bruit. Respiratory: clear to ascultation bilaterally. No rales/rhonic/wheezes. Cardiovascular: normal S1-S2 upon ascultation. No murmurs, rubs, or clicks. PMI is nondisplaced, capillary refill less than 3 second. Abdomen: Soft, round, no pulsatile masses, nondistended and nontender. No rebound, no guarding. No CVA tenderness, no hepatosplenomegaly. Bowel sounds present Extremities: No cyanosis, clubbing, or edema present. Pulses are palpable 2/2. Active ROM to all four extremities. Neuro: Alert and orientated x 4. PERRLA. Cranial nerves 2-12 intact without focal deficit. Skin: Warm, dry, and intact, without rash, erythema, or lesion. Psych: pleasant, cooperative, normal speech, normal affect, no hallucinations, no dysarthia Const: General: comfortable Objective Data Vital Signs Vital Signs: Vital Signs - 24 hr 10/22/24 08:00 10/22/24 08:00 10/22/24 08:35 Temperature Pulse Rate 85 92 Respiratory Rate 20 Blood Pressure Pulse Oximetry 95 Oxygen Delivery Room Air Room Air Fraction of Inspired Oxygen 10/22/24 08:35 10/22/24 08:47 10/22/24 08:48 Temperature 97.4 F L Pulse Rate 92 93 93 Respiratory Rate 20 16 20 Blood Pressure 152/72 H Pulse Oximetry 100 Oxygen Delivery Fraction of Inspired Oxygen 10/22/24 12:00 10/22/24 13:57 10/22/24 14:10 Temperature Pulse Rate 80 79 72 Respiratory Rate 20 20 Blood Pressure Pulse Oximetry Oxygen Delivery Fraction of Inspired Oxygen 10/22/24 15:42 10/22/24 16:00 10/22/24 20:00 Temperature 97.6 F Pulse Rate 97 79 77 Respiratory Rate 20 20 Blood Pressure 158/73 H Pulse Oximetry 99 99 Oxygen Delivery Room Air Fraction of Inspired Oxygen 21 10/22/24 20:43 10/22/24 20:51 10/22/24 20:55 Temperature 97.7 F Pulse Rate 77 75 72 Respiratory Rate 20 20 20 Blood Pressure 119/53 L Pulse Oximetry 100 Oxygen Delivery Fraction of Inspired Oxygen 10/23/24 04:00 10/23/24 05:41 Temperature 97.9 F Pulse Rate 74 81 Respiratory Rate 18 Blood Pressure 147/65 H Pulse Oximetry 99 Oxygen Delivery Fraction of Inspired Oxygen Intake/Output Intake/Output: Intake & Output 10/20/24 10/21/24 10/22/24 10/23/24 23:59 23:59 23:59 23:59 Intake Total 220 1010 1300 200 Output Total 200 1007 Balance 20 3 1300 200 Meds/Results Medications: Active Medications Generic Name Dose Route Start Last Admin Trade Name Freq PRN Reason Stop Dose Admin Acetaminophen 500 mg 10/10/24 23:07 10/20/24 19:33 Acetaminophen 500 Mg Tablet PO 500 mg Q6H PRN Administration Mild Pain (1-3) or Fever Acetaminophen 1,000 mg 10/20/24 21:09 10/22/24 23:48 Acetaminophen 500 Mg Tablet PO 1,000 mg Q6H PRN Administration PAIN 4-6 Albuterol/Ipratropium 3 ml 10/22/24 20:00 10/22/24 20:42 Ipratropium 0.5 Mg/Albuterol Sulfate 2.5 Mg Ampul.Neb 3 Ml INHALATION 3 ml [id number] JIGNA Administration Apixaban 5 mg 10/14/24 12:00 10/17/24 08:47 Apixaban 5 Mg Tablet PO 5 mg Q12HR JIGNA Administration Aspirin 81 mg 10/10/24 09:00 10/22/24 08:48 Aspirin 81 Mg Enteric Tablet PO 81 mg DAILY JIGNA Administration Buspirone HCl 5 mg 10/12/24 11:30 10/22/24 23:42 Buspirone Hcl 5 Mg Tablet PO 5 mg Q12HR JIGNA Administration Dextrose 12.5 gm 10/09/24 20:02 Dextrose 50% 25 Gm/50 Ml Syringe IV PUSH PRN PRN Hypoglycemia Protocol Diltiazem HCl 120 mg 10/11/24 12:00 10/22/24 08:48 Diltiazem Hcl Cd 120 Mg Cap.24hr PO 120 mg QAM JIGNA Administration Escitalopram Oxalate 20 mg 10/10/24 09:00 10/17/24 08:47 Escitalopram Oxalate 10 Mg Tablet PO 20 mg DAILY JIGNA Administration Fentanyl Citrate 25 mcg 10/20/24 14:01 10/20/24 16:54 Fentanyl Citrate Inj (*Crx) 100 Mcg/2 Ml Vial IV PUSH 25 mcg Q2M PRN Administration Pain Glucagon 1 mg 10/09/24 20:02 Glucagon For Inj 1 Mg Vial IM PRN PRN Hypoglycemia Protocol Glucose 15 gm 10/09/24 20:02 Glucose Oral Gel 15 Gm Of Glucse In 37.5 Gm Tube PO PRN PRN Hypoglycemia Protocol Hydromorphone HCl 0.5 mg 10/20/24 18:43 10/21/24 00:50 Hydromorphone Hcl Inj (*Crx) 2 Mg/Ml Vial IV PUSH 0.5 mg Q3H PRN Administration Pain Rated 7-10 Dextrose 1,000 mls @ 100 mls/hr 10/09/24 20:02 Dextrose 5% 1,000 Ml IVPB PRN PRN Hypoglycemia Protocol Albumin Human 50 mls @ 999 mls/hr 10/12/24 12:35 10/19/24 11:22 Albutein IVPB 11/11/24 12:34 Infused Q10M PRN Infusion HYPOTENSION Insulin Aspart 2 - 5 units 10/10/24 00:00 10/23/24 06:21 Insulin Aspart (*Bkc) 100 Units/Ml SUB-Q Not Given Q6HR [facility] Protocol Levothyroxine Sodium 125 mcg 10/10/24 06:30 10/22/24 06:16 Levothyroxine Sodium 125 Mcg Tablet BY MOUTH 125 mcg Q48H JIGNA Administration Levothyroxine Sodium 150 mcg 10/11/24 06:30 10/23/24 06:22 Levothyroxine Sodium 150 Mcg Tablet PO 150 mcg Q48H JIGNA Administration Montelukast Sodium 10 mg 10/09/24 21:35 10/22/24 23:42 Montelukast Sodium 10 Mg Tablet BY MOUTH 10 mg QHS JIGNA Administration Ondansetron HCl 4 mg 10/20/24 14:01 Ondansetron Inj 4 Mg/2 Ml Vial IV PUSH ONCE PRN Nausea Oxymetazoline HCl 1 spray 10/17/24 12:43 10/18/24 01:21 Oxymetazoline Hcl 0.05% Pete 15 Ml Btl (*Bkc) NASAL 1 spray Q12HR PRN Administration Dryness Prochlorperazine Edisylate 10 mg 10/18/24 12:20 10/21/24 12:46 Prochlorperazine Edisylate 10 Mg/2 Ml Vial IV PUSH 10 mg Q6H PRN Administration Nausea And Vomiting Prochlorperazine Maleate 5 mg 10/16/24 22:44 10/18/24 00:15 Prochlorperazine Maleate 5 Mg Tablet PO 5 mg Q6H PRN Administration Nausea And Vomiting Radiology Results: ITS Impressions Abdomen/Pelvis CT 10/09/24 16:08 IMPRESSION: Trace pericardial effusion. Scattered calcified and noncalcified sub-6 mm pulmonary nodules, likely representing granulomas. Mild inflammatory change surrounding the pancreatic head and uncinate process, correlate for clinical findings of pancreatitis. Mild inflammatory stranding/edema in the proximal bile ducts, presumably related to the pancreatic process, noting that ascending cholangitis could appear similarly. Mild dilation of the third and fourth portions of the duodenum, presumably ileus related to the pancreatic process. Abdomen X-Ray 10/10/24 06:55 Impression: No acute abnormality is seen. Irregular markedly hyperdense opacity in the pelvis. Correlate for surgical/procedural history or traumatic history/foreign body. Renal Ultrasound 10/10/24 11:35 Impression: Unremarkable ultrasound of the kidneys and urinary bladder. Chest CT 10/16/24 15:48 IMPRESSION: Large right and moderate left-sided pleural effusions with adjacent compressive atelectasis. Findings within the right middle and upper lobes suggesting asymmetric pulmonary edema. Small pericardial effusion. Labs Labs: Laboratory Results - last 24 hr 10/22/24 10/22/24 10/22/24 08:41 12:22 18:11 WBC RBC Hgb Hct MCV MCH MCHC RDW Plt Count MPV Immature Gran % (Auto) Neut % (Auto) Lymph % (Auto) Posey % (Auto) Eos % (Auto) Baso % (Auto) Lymph # (Auto) Posey # (Auto) Eos # (Auto) Baso # (Auto) Abs Immat Gran (auto) Absolute Neuts (auto) Absolute Nucleated RBC Nucleated RBC % Sodium Potassium Chloride Carbon Dioxide Anion Gap BUN Creatinine Estim Creat Clear Calc Estimated GFR Glucose POC Capillary Glucose 86 99 126 H Calcium Phosphorus Magnesium Total Bilirubin AST ALT Alkaline Phosphatase Total Protein Albumin 10/22/24 10/23/24 10/23/24 23:20 05:15 05:33 WBC 9.1 RBC 2.78 L Hgb 8.4 L Hct 25.8 L MCV 92.8 MCH 30.2 MCHC 32.6 RDW 18.3 H Plt Count 252 MPV 10.2 Immature Gran % (Auto) 2.0 H Neut % (Auto) 66.1 Lymph % (Auto) 16.5 L Posey % (Auto) 10.4 H Eos % (Auto) 4.6 H Baso % (Auto) 0.4 Lymph # (Auto) 1.50 Posey # (Auto) 1.0 H Eos # (Auto) 0.4 H Baso # (Auto) 0.0 Abs Immat Gran (auto) 0.18 H Absolute Neuts (auto) 6.0 Absolute Nucleated RBC 0.000 Nucleated RBC % 0.0 Sodium 132 L Potassium 3.5 Chloride 102 Carbon Dioxide 24 Anion Gap 6 BUN 30 H Creatinine 5.69 H Estim Creat Clear Calc 7 Estimated GFR 7 L Glucose 84 POC Capillary Glucose 110 H 91 Calcium 8.2 L Phosphorus 3.9 Magnesium 2.1 Total Bilirubin 0.7 AST 23 ALT 17 Alkaline Phosphatase 213 H Total Protein 5.2 L Albumin 2.8 L Quality VTE Prophylaxis VTE prophylaxis: mechanical ordered Hospitalist MIPS Advance Care Plan I have confirmed that the patient's Advanced Care Plan is present, code status is documented, or surrogate decision maker is listed in patient medical record.: Yes Medication Reconciliation I have utilized all available resources to obtain, update and review the patients current medications (includes all prescriptions, OTC, herbals, cannabis, and nutritional supplements).: Yes
[2024-10-23] MEDS: IPRATROPIUM 0.5 MG/ALBUTEROL SULFATE 2.5 MG AMPUL.NEB 3 ML INHALATION ×3 (07:39→20:26)
[2024-10-23] MEDS: PROCHLORPERAZINE EDISYLATE 10 MG/2 ML VIAL IV PUSH (08:01)
[2024-10-23 08:21] LABS: Glucose Point of Care 88 mg/dl (65-105)
[2024-10-23] MEDS: HEPARIN SODIUM 1,000 UNITS/ML VIAL 500 UNITS IV PUSH ×2 (10:17→11:17)
[2024-10-23] MEDS: HEPARIN SODIUM 1,000 UNITS/ML VIAL 1000 UNITS IV PUSH (10:17)
--- NOTE | 2024-10-23 10:30 | P.PNNP_ITS ---
Progress Note: A&P Assessment and Plan (1) CHAD (acute kidney injury): Code(s): N17.9 - Acute kidney failure, unspecified Status: Acute Assessment and Plan: * ongoing deterioration noted since admission * relatively normal creatinine at baseline * suspect multifactorial: * hypotension/hemodynamic instability * prerenal factors * ARB use prior to admission * Afib * other(?) * evaluation to date noted: * normal renal ultrasound * CPK normal * urine eosinophils negative * urine electrolyte prerenal * proteinuria noted * admission UA noted * serologies negative to date * suspicion falls on ATN from significant hypotension/hemodynamic instability on admission * initiated on RELINER/dialysis due to volume overload unresponsive to diuretic therapy * no critical electrolytes but issues with hyponatremia noted * fluid removal with HD as tolerated * follow respiratory status * suspect will need ongoing dialytic support for a significant period of time... * s/p tunneled HD catheter placement on 10/20/24 * HD today and continue T/T/S schedule (as this will be her outpatient schedule) * follow trend of repeat labs and UOP to assess for potential renal recovery (2) Acute hypoxic respiratory failure: Code(s): J96.01 - Acute respiratory failure with hypoxia Status: Chronic Assessment and Plan: * clinically better/resolving * felt more related to renal failure than overt CHF * initial imaging with evidence of pulmonary edema/pleural effusions * ongoing fluid removal with HD as tolerated * monitor respiratory status * given CXR findings and tachypnea on 10/15, s/p DUF for further fluid removal * CT of chest (on 10/16) results noted: * large right and moderate left-sided pleural effusions with adjacent compressive atelectasis * however, repeat imaging with minimal effusions -- thoracentesis cancelled * supplemental oxygen PRN (3) CHF (congestive heart failure): Code(s): I50.9 - Heart failure, unspecified Status: Acute Assessment and Plan: * recent Echo noted: * left ventricle is normal in size and systolic function * left ventricular ejection fraction is visually estimated to be 60-65% * paradoxical septal wall motion abnormality suggestive of bundle-branch block * right ventricle is normal in size and systolic function * no significant valvular abnormalities. * suspect volume overload/pulmonary edema/pleural effusion secondary to renal failure than CHF * failed trial of diuretic therapy * ongoing fluid removal with HD to acheive/maintain euvolemia (4) Anemia: Code(s): D64.9 - Anemia, unspecified Status: Acute Assessment and Plan: * related to CHAD and acute illness * drop in H/H noted on 10/17 - blood transfusion following rapid response * drop in H/H further on 10/18 evening (received blood transfusion) * complicated by epistaxis * anemia studies noted: * adequate iron stores * B12 and folate good * Epogen with HD * PRBC transfusion per protocol * GI following intermittently * s/p EGD on 10/18 - no active bleeding lesions noted * holding Eliquis * follow trend of H/H (5) Atrial fibrillation with RVR: Code(s): I48.91 - Unspecified atrial fibrillation Status: Acute Assessment and Plan: * Cardiology recommendations noted * diltiazem for rate control * was on anticoagulation (Eliquis) - on hold due to #4 and epistaxis (6) Elevated liver enzymes: Code(s): R74.8 - Abnormal levels of other serum enzymes Status: Acute Assessment and Plan: * as noted on admission * slow improvement noted by trend (if not normalization) * thought to be related to altered hemodynamics/previous hypotension * GI recommendations noted (7) Hypertension: Qualifiers: Hypertension type: unspecified Qualified Code(s): I10 - Essential (primary) hypertension Code(s): I10 - Essential (primary) hypertension Status: Chronic Assessment and Plan: * clinically better at this time * back on diltiazem (more so for rate control) * follow trend of hemodynamics (8) Diabetes: Code(s): E11.9 - Type 2 diabetes mellitus without complications Status: Acute Assessment and Plan: * follow accu-checks * glycemic control per hospitalist Discussed with Dr. Alfaro -- no opposed to discharge from renal perspective if otherwise medically stable and discharge disposition/outpatient dialysis schedule has been finalized. Will continue to follow. L Subjective Date/time seen: 10/23/24 10:30 Interval history: Follow-up for acute kidney injury/acute renal failure (now requiring RELINER/hemodialysis). Tolerating dialysis treatment at the time of my visit (seen on HD at 10:20AM); no apparent distress noted but related generalized fatigue; no other acute issues/events overnight or earlier this AM; breathing/respiratory status remains stable if not better; H/H remains stable as well. Exam 2 Narrative: General: elderly and mildly ill-appearing female in NAD Heart: normal S1 and S2; no rub Lungs: clear anteriorly; diminished at bases Abdomen: soft, nontender, nondistended, positive bowel sounds Extremities: no cyanosis or clubbing; no edema Skin: warm and dry Objective Data Vital Signs Vital Signs: Vital Signs Temp Pulse Resp BP Pulse Ox O2 Del Method FiO2 10/23/24 10:30 79 142/71 H 10/23/24 10:15 81 163/73 H 10/23/24 10:00 87 143/63 H 10/23/24 09:45 86 147/74 H 10/23/24 09:30 83 149/76 H 10/23/24 09:15 81 130/71 10/23/24 09:00 81 155/73 H 10/23/24 08:48 80 151/71 H 10/23/24 08:30 88 159/85 H 10/23/24 08:21 77 169/73 H 10/23/24 08:11 97.9 F 85 16 164/82 H 99 10/23/24 07:49 81 16 10/23/24 07:41 72 16 10/23/24 07:41 99 Room Air 10/23/24 05:41 97.9 F 81 18 147/65 H 99 10/23/24 04:00 74 10/22/24 20:55 72 20 10/22/24 20:51 97.7 F 75 20 119/53 L 100 10/22/24 20:43 77 20 10/22/24 20:00 77 20 99 Room Air 21 10/22/24 16:00 79 10/22/24 15:42 97.6 F 97 20 158/73 H 99 10/22/24 14:10 72 20 10/22/24 13:57 79 20 10/22/24 12:00 80 Intake/Output Intake/Output: Intake & Output 10/20/24 10/21/24 10/22/24 10/23/24 23:59 23:59 23:59 23:59 Intake Total 220 1010 1300 200 Output Total 200 1007 Balance 20 3 1300 200 Meds/Results Medications: Active Medications Generic Name Dose Route Start Last Admin Trade Name Freq PRN Reason Stop Dose Admin Acetaminophen 500 mg 10/10/24 23:07 10/20/24 19:33 Acetaminophen 500 Mg Tablet PO 500 mg Q6H PRN Administration Mild Pain (1-3) or Fever Acetaminophen 1,000 mg 10/20/24 21:09 10/22/24 23:48 Acetaminophen 500 Mg Tablet PO 1,000 mg Q6H PRN Administration PAIN 4-6 Albuterol/Ipratropium 3 ml 10/22/24 20:00 10/23/24 07:39 Ipratropium 0.5 Mg/Albuterol Sulfate 2.5 Mg Ampul.Neb 3 Ml INHALATION 3 ml [id number] JIGNA Administration Apixaban 5 mg 10/14/24 12:00 10/17/24 08:47 Apixaban 5 Mg Tablet PO 5 mg Q12HR JIGNA Administration Aspirin 81 mg 10/10/24 09:00 10/22/24 08:48 Aspirin 81 Mg Enteric Tablet PO 81 mg DAILY JIGNA Administration Buspirone HCl 5 mg 10/12/24 11:30 10/22/24 23:42 Buspirone Hcl 5 Mg Tablet PO 5 mg Q12HR JIGNA Administration Dextrose 12.5 gm 10/09/24 20:02 Dextrose 50% 25 Gm/50 Ml Syringe IV PUSH PRN PRN Hypoglycemia Protocol Diltiazem HCl 120 mg 10/11/24 12:00 10/22/24 08:48 Diltiazem Hcl Cd 120 Mg Cap.24hr PO 120 mg QAM JIGNA Administration Epoetin August-epbx 10,000 units 10/23/24 19:30 Epoetin August-Epbx 10,000 Units/Ml Vial IV PUSH 10/23/24 19:31 ONCE ONE Escitalopram Oxalate 20 mg 10/10/24 09:00 10/17/24 08:47 Escitalopram Oxalate 10 Mg Tablet PO 20 mg DAILY JIGNA Administration Fentanyl Citrate 25 mcg 10/20/24 14:01 10/20/24 16:54 Fentanyl Citrate Inj (*Crx) 100 Mcg/2 Ml Vial IV PUSH 25 mcg Q2M PRN Administration Pain Glucagon 1 mg 10/09/24 20:02 Glucagon For Inj 1 Mg Vial IM PRN PRN Hypoglycemia Protocol Glucose 15 gm 10/09/24 20:02 Glucose Oral Gel 15 Gm Of Glucse In 37.5 Gm Tube PO PRN PRN Hypoglycemia Protocol Heparin Sodium (Porcine) 500 units 10/23/24 10:15 Heparin Sodium 1,000 Units/Ml Vial IV PUSH 10/23/24 11:16 Q1H JIGNA Hydromorphone HCl 0.5 mg 10/20/24 18:43 10/21/24 00:50 Hydromorphone Hcl Inj (*Crx) 2 Mg/Ml Vial IV PUSH 0.5 mg Q3H PRN Administration Pain Rated 7-10 Dextrose 1,000 mls @ 100 mls/hr 10/09/24 20:02 Dextrose 5% 1,000 Ml IVPB PRN PRN Hypoglycemia Protocol Albumin Human 50 mls @ 999 mls/hr 10/12/24 12:35 10/19/24 11:22 Albutein IVPB 11/11/24 12:34 Infused Q10M PRN Infusion HYPOTENSION Insulin Aspart 2 - 5 units 10/10/24 00:00 10/23/24 06:21 Insulin Aspart (*Bkc) 100 Units/Ml SUB-Q Not Given Q6HR JIGNA Protocol Levothyroxine Sodium 125 mcg 10/10/24 06:30 10/22/24 06:16 Levothyroxine Sodium 125 Mcg Tablet BY MOUTH 125 mcg Q48H JIGNA Administration Levothyroxine Sodium 150 mcg 10/11/24 06:30 10/23/24 06:22 Levothyroxine Sodium 150 Mcg Tablet PO 150 mcg Q48H JIGNA Administration Montelukast Sodium 10 mg 10/09/24 21:35 10/22/24 23:42 Montelukast Sodium 10 Mg Tablet BY MOUTH 10 mg QHS JIGNA Administration Ondansetron HCl 4 mg 10/20/24 14:01 Ondansetron Inj 4 Mg/2 Ml Vial IV PUSH ONCE PRN Nausea Oxymetazoline HCl 1 spray 10/17/24 12:43 10/18/24 01:21 Oxymetazoline Hcl 0.05% Pete 15 Ml Btl (*Bkc) NASAL 1 spray Q12HR PRN Administration Dryness Prochlorperazine Edisylate 10 mg 10/18/24 12:20 10/23/24 08:01 Prochlorperazine Edisylate 10 Mg/2 Ml Vial IV PUSH 10 mg Q6H PRN Administration Nausea And Vomiting Prochlorperazine Maleate 5 mg 10/16/24 22:44 10/18/24 00:15 Prochlorperazine Maleate 5 Mg Tablet PO 5 mg Q6H PRN Administration Nausea And Vomiting Radiology Results: ITS Impressions Abdomen/Pelvis CT 10/09/24 16:08 IMPRESSION: Trace pericardial effusion. Scattered calcified and noncalcified sub-6 mm pulmonary nodules, likely representing granulomas. Mild inflammatory change surrounding the pancreatic head and uncinate process, correlate for clinical findings of pancreatitis. Mild inflammatory stranding/edema in the proximal bile ducts, presumably related to the pancreatic process, noting that ascending cholangitis could appear similarly. Mild dilation of the third and fourth portions of the duodenum, presumably ileus related to the pancreatic process. Abdomen X-Ray 10/10/24 06:55 Impression: No acute abnormality is seen. Irregular markedly hyperdense opacity in the pelvis. Correlate for surgical/procedural history or traumatic history/foreign body. Renal Ultrasound 10/10/24 11:35 Impression: Unremarkable ultrasound of the kidneys and urinary bladder. Chest CT 10/16/24 15:48 IMPRESSION: Large right and moderate left-sided pleural effusions with adjacent compressive atelectasis. Findings within the right middle and upper lobes suggesting asymmetric pulmonary edema. Small pericardial effusion. Chest X-Ray 10/23/24 07:14 IMPRESSION: 1. Mild airspace opacities in the right upper and lower lung zones and bilateral lung bases which could represent atelectasis or pneumonia. 2. Small bilateral pleural effusions. Labs Labs: Laboratory Tests 10/23/24 05:15 10/23/24 05:15 Calcium 8.2 L Phosphorus 3.9 Magnesium 2.1 Total Bilirubin 0.7 AST 23 ALT 17 Alkaline Phosphatase 213 H Total Protein 5.2 L Albumin 2.8 L
[2024-10-23] MEDS: EPOETIN ALFA-EPBX 10,000 UNITS/ML VIAL 10000 UNITS IV PUSH (11:36)
[2024-10-23] MEDS: HEPARIN SODIUM 1,000 UNITS/ML VIAL 6000 UNITS (12:11)
[2024-10-23] MEDS: ASPIRIN 81 MG ENTERIC TABLET PO (12:46)
[2024-10-23] MEDS: busPIRone HCL 5 MG TABLET PO ×2 (12:46→21:08)
[2024-10-23] MEDS: dilTIAZem HCL CD 120 MG CAP.24HR PO (12:47)
[2024-10-23 12:49] LABS: Glucose Point of Care 79 mg/dl (65-105)
--- NOTE | 2024-10-23 15:06 | PCOTNOTE ---
Attempted to see pt 3x today. At 1st attempt, pt had just arrived back from dialysis and was currently getting settled in bed. At 2nd attempt pt was still eating lunch at 13:30. At 3rd attempt pt declined to participate due to being too tired from dialysis treatment. Will continue per poc duration/frequency.
[2024-10-23 17:37] LABS: Glucose Point of Care 112 mg/dl (65-105)
[2024-10-23] MEDS: MONTELUKAST SODIUM 10 MG TABLET BY MOUTH (21:08)
[2024-10-23 23:30] LABS: Glucose Point of Care 110 mg/dl (65-105)
[2024-10-24] VITALS (8 sets, daily range): BP systolic 155; BP diastolic 72; PULSE 73–85; RESP 16; TEMP 36.6; O2SAT 98
[2024-10-24] MEDS: LEVOTHYROXINE SODIUM 125 MCG TABLET BY MOUTH (06:14)
[2024-10-24 06:24] LABS: Glucose Point of Care 92 mg/dl (65-105)
[2024-10-24 06:26] LABS: Basophils Percent Auto 0.5 % (0.2-1.2); Eosinophils Absolute Auto 0.3 K/mm3 (0-0.3); Eosinophils Percent Auto 3.6 % (0-4.4); Hemoglobin 8.6 g/dL (12.0-15.0); Immature Granulocyte Absolute 0.12 K/mm3 (0.00-0.031); Immature Granulocyte Percent A 1.5 % (0-0.5); Lymphocytes Absolute Auto 1.42 K/mm3 (0.9-3.2); Lymphocytes Percent Auto 17.6 % (18.3-44.2); Mean Corpuscular HGB Conc 31.9 g/dl (32-36); Mean Corpuscular Hemoglobin 29.5 pg (26-34); Mean Corpuscular Volume 92.5 fl (80-100); Mean Platelet Volume 9.9 fl (7.4-10.4); Monocytes Absolute Auto 0.9 K/mm3 (0.1-0.6); Monocytes Percent Auto 10.5 % (2.6-8.5); Neutrophils Absolute Auto 5.4 K/mm3 (1.3-6.7); Neutrophils Percent Auto 66.3 % (45.5-73.1); Platelet Count Result 270 k/mm3 (150-375); Red Blood Count 2.92 M/mm3 (4.2-5.4); Red Cell Distribution Width 18.6 % (11.5-14.5); White Blood Count 8.1 K/mm3 (4.5-10.0)
[2024-10-24 06:51] LABS: Alanine Aminotransferase 15 U/L (6-35); Albumin Level 2.7 g/dL (3.5-5.1); Alkaline Phosphatase 194 U/L (38-126); Anion Gap 2 mmol/L (4-12); Aspartate Amino Transferase 29 U/L (14-36); Bilirubin,Total 0.6 mg/dL (0.2-1.3); Blood Urea Nitrogen 17 mg/dL (7-17); Calcium 8.3 mg/dL (8.4-10.2); Carbon Dioxide 28 mmol/L (22-30); Chloride 104 mmol/L (98-107); Estimated CRCL calculation 10 ml/min; Estimated Glomerular Filt Rate 11; Glucose 90 mg/dL (65-110); Potassium 3.7 mmol/L (3.4-5.0); Sodium 134 mmol/L (137-145); Total Protein 5.3 g/dL (6.3-8.2)
[2024-10-24] MEDS: IPRATROPIUM 0.5 MG/ALBUTEROL SULFATE 2.5 MG AMPUL.NEB 3 ML INHALATION ×2 (08:06→13:34)
[2024-10-24] MEDS: ASPIRIN 81 MG ENTERIC TABLET PO (09:45)
[2024-10-24] MEDS: busPIRone HCL 5 MG TABLET PO (09:45)
[2024-10-24] MEDS: dilTIAZem HCL CD 120 MG CAP.24HR PO (09:45)
--- NOTE | 2024-10-24 10:32 | P.PNNP_ITS ---
Progress Note: A&P Assessment and Plan (1) CHAD (acute kidney injury): Code(s): N17.9 - Acute kidney failure, unspecified Status: Acute Assessment and Plan: * ongoing deterioration noted since admission * relatively normal creatinine at baseline * suspect ATN with multifactorial etiology: * hypotension/hemodynamic instability * prerenal factors * ARB use prior to admission * Afib * other(?) * evaluation to date noted: * normal renal ultrasound * CPK normal * urine eosinophils negative * urine electrolyte prerenal * proteinuria noted * admission UA noted * serologies negative to date * initiated on [employer]/dialysis due to volume overload unresponsive to diuretic therapy * no critical electrolytes but issues with hyponatremia noted * fluid removal with HD as tolerated * follow respiratory status * suspect will need ongoing dialytic support for a significant period of time... * s/p tunneled HD catheter placement on 10/20/24 * HD yesterday and continue T/T/S schedule (as this will be her outpatient schedule) * follow trend of repeat labs and UOP to assess for potential renal recovery (2) Acute hypoxic respiratory failure: Code(s): J96.01 - Acute respiratory failure with hypoxia Status: Chronic Assessment and Plan: * clinically better/resolving * felt more related to renal failure than overt CHF * initial imaging with evidence of pulmonary edema/pleural effusions * ongoing fluid removal with HD as tolerated * monitor respiratory status * given CXR findings and tachypnea on 10/15, s/p DUF for further fluid removal * CT of chest (on 10/16) results noted: * large right and moderate left-sided pleural effusions with adjacent compressive atelectasis * however, repeat imaging with minimal effusions -- thoracentesis cancelled * supplemental oxygen PRN (3) CHF (congestive heart failure): Code(s): I50.9 - Heart failure, unspecified Status: Acute Assessment and Plan: * recent Echo noted: * left ventricle is normal in size and systolic function * left ventricular ejection fraction is visually estimated to be 60-65% * paradoxical septal wall motion abnormality suggestive of bundle-branch block * right ventricle is normal in size and systolic function * no significant valvular abnormalities. * suspect volume overload/pulmonary edema/pleural effusion secondary to renal failure than CHF * failed trial of diuretic therapy * ongoing fluid removal with HD to acheive/maintain euvolemia (4) Anemia: Code(s): D64.9 - Anemia, unspecified Status: Acute Assessment and Plan: * related to CHAD and acute illness * drop in H/H noted on 10/17 - blood transfusion following rapid response * drop in H/H further on 10/18 evening (received blood transfusion) * complicated by epistaxis * anemia studies noted: * adequate iron stores * B12 and folate good * Epogen with HD * PRBC transfusion per protocol * GI following intermittently * s/p EGD on 10/18 - no active bleeding lesions noted * holding Eliquis * follow trend of H/H (5) Atrial fibrillation with RVR: Code(s): I48.91 - Unspecified atrial fibrillation Status: Acute Assessment and Plan: * Cardiology recommendations noted * diltiazem for rate control * was on anticoagulation (Eliquis) - on hold due to #4 and epistaxis (6) Elevated liver enzymes: Code(s): R74.8 - Abnormal levels of other serum enzymes Status: Acute Assessment and Plan: * as noted on admission * slow improvement noted by trend (if not normalization) * thought to be related to altered hemodynamics/previous hypotension * GI recommendations noted (7) Hypertension: Qualifiers: Hypertension type: unspecified Qualified Code(s): I10 - Essential (primary) hypertension Code(s): I10 - Essential (primary) hypertension Status: Chronic Assessment and Plan: * clinically better at this time * on diltiazem (more so for rate control) * follow trend of hemodynamics (8) Diabetes: Code(s): E11.9 - Type 2 diabetes mellitus without complications Status: Acute Assessment and Plan: * follow accu-checks * glycemic control per hospitalist Discussed with Dr. Alfaro (on 10/23) -- no opposed to discharge from renal perspective if otherwise medically stable and discharge disposition/outpatient dialysis schedule has been finalized; Dr. Vanegas with follow her for her outpatient dialysis needs. Will continue to follow. L Subjective Date/time seen: 10/24/24 10:32 Interval history: Follow-up for acute kidney injury/acute renal failure (now requiring [employer]/hemodialysis). Tolerated dialysis treatment yesterday without any issues or problems although she states that the HD treatments wear her out but feels reasonably well at the time of my visit; breathing/respiratory status reasonable as well; no other issues/events overnight or earlier this morning. Exam 2 Narrative: General: elderly and mildly ill-appearing female in NAD Heart: normal S1 and S2; no rub Lungs: clear anteriorly; mildly diminished at bases Abdomen: soft, nontender, nondistended, positive bowel sounds Extremities: no cyanosis or clubbing; no edema Skin: warm and intact Objective Data Vital Signs Vital Signs: Vital Signs Temp Pulse Resp BP Pulse Ox O2 Del Method FiO2 10/24/24 08:10 85 16 10/24/24 08:00 80 10/24/24 08:00 Room Air 10/24/24 08:00 98 Room Air 10/24/24 08:00 83 16 10/24/24 06:00 98 F 85 16 155/72 H 98 10/24/24 04:00 80 10/24/24 00:00 81 10/23/24 21:19 97.4 F L 79 18 116/58 L 100 10/23/24 20:36 82 14 10/23/24 20:30 80 16 98 Room Air 10/23/24 20:26 80 16 10/23/24 20:00 80 10/23/24 16:00 94 10/23/24 14:08 80 16 10/23/24 13:49 97 16 10/23/24 12:01 97.9 F 89 16 162/83 H 98 10/23/24 12:00 91 10/23/24 11:57 87 157/80 H 10/23/24 11:45 88 143/74 H Intake/Output Intake/Output: Intake & Output 10/21/24 10/22/24 10/23/24 10/24/24 23:59 23:59 23:59 23:59 Intake Total 1010 1300 1040 340 Output Total 1007 2500 0 Balance 3 1300 -1460 340 Meds/Results Medications: Active Medications Generic Name Dose Route Start Last Admin Trade Name Freq PRN Reason Stop Dose Admin Acetaminophen 500 mg 10/10/24 23:07 10/20/24 19:33 Acetaminophen 500 Mg Tablet PO 500 mg Q6H PRN Administration Mild Pain (1-3) or Fever Acetaminophen 1,000 mg 10/20/24 21:09 10/22/24 23:48 Acetaminophen 500 Mg Tablet PO 1,000 mg Q6H PRN Administration PAIN 4-6 Albuterol/Ipratropium 3 ml 10/22/24 20:00 10/24/24 08:06 Ipratropium 0.5 Mg/Albuterol Sulfate 2.5 Mg Ampul.Neb 3 Ml INHALATION 3 ml [id number] JIGNA Administration Apixaban 5 mg 10/14/24 12:00 10/17/24 08:47 Apixaban 5 Mg Tablet PO 5 mg Q12HR JIGNA Administration Aspirin 81 mg 10/10/24 09:00 10/24/24 09:45 Aspirin 81 Mg Enteric Tablet PO 81 mg DAILY JIGNA Administration Buspirone HCl 5 mg 10/12/24 11:30 10/24/24 09:45 Buspirone Hcl 5 Mg Tablet PO 5 mg Q12HR JIGNA Administration Dextrose 12.5 gm 10/09/24 20:02 Dextrose 50% 25 Gm/50 Ml Syringe IV PUSH PRN PRN Hypoglycemia Protocol Diltiazem HCl 120 mg 10/11/24 12:00 10/24/24 09:45 Diltiazem Hcl Cd 120 Mg Cap.24hr PO 120 mg QAM JIGNA Administration Escitalopram Oxalate 20 mg 10/10/24 09:00 10/17/24 08:47 Escitalopram Oxalate 10 Mg Tablet PO 20 mg DAILY JIGNA Administration Fentanyl Citrate 25 mcg 10/20/24 14:01 10/20/24 16:54 Fentanyl Citrate Inj (*Crx) 100 Mcg/2 Ml Vial IV PUSH 25 mcg Q2M PRN Administration Pain Glucagon 1 mg 10/09/24 20:02 Glucagon For Inj 1 Mg Vial IM PRN PRN Hypoglycemia Protocol Glucose 15 gm 10/09/24 20:02 Glucose Oral Gel 15 Gm Of Glucse In 37.5 Gm Tube PO PRN PRN Hypoglycemia Protocol Hydromorphone HCl 0.5 mg 10/20/24 18:43 10/21/24 00:50 Hydromorphone Hcl Inj (*Crx) 2 Mg/Ml Vial IV PUSH 0.5 mg Q3H PRN Administration Pain Rated 7-10 Dextrose 1,000 mls @ 100 mls/hr 10/09/24 20:02 Dextrose 5% 1,000 Ml IVPB PRN PRN Hypoglycemia Protocol Albumin Human 50 mls @ 999 mls/hr 10/12/24 12:35 10/19/24 11:22 Albutein IVPB 11/11/24 12:34 Infused Q10M PRN Infusion HYPOTENSION Insulin Aspart 2 - 5 units 10/10/24 00:00 10/24/24 06:39 Insulin Aspart (*Bkc) 100 Units/Ml SUB-Q Not Given Q6HR [facility] Protocol Levothyroxine Sodium 125 mcg 10/10/24 06:30 10/24/24 06:14 Levothyroxine Sodium 125 Mcg Tablet BY MOUTH 125 mcg Q48H JIGNA Administration Levothyroxine Sodium 150 mcg 10/11/24 06:30 10/23/24 06:22 Levothyroxine Sodium 150 Mcg Tablet PO 150 mcg Q48H JIGNA Administration Montelukast Sodium 10 mg 10/09/24 21:35 10/23/24 21:08 Montelukast Sodium 10 Mg Tablet BY MOUTH 10 mg QHS JIGNA Administration Ondansetron HCl 4 mg 10/20/24 14:01 Ondansetron Inj 4 Mg/2 Ml Vial IV PUSH ONCE PRN Nausea Oxymetazoline HCl 1 spray 10/17/24 12:43 10/18/24 01:21 Oxymetazoline Hcl 0.05% Pete 15 Ml Btl (*Bkc) NASAL 1 spray Q12HR PRN Administration Dryness Prochlorperazine Edisylate 10 mg 10/18/24 12:20 10/23/24 08:01 Prochlorperazine Edisylate 10 Mg/2 Ml Vial IV PUSH 10 mg Q6H PRN Administration Nausea And Vomiting Prochlorperazine Maleate 5 mg 10/16/24 22:44 10/18/24 00:15 Prochlorperazine Maleate 5 Mg Tablet PO 5 mg Q6H PRN Administration Nausea And Vomiting Radiology Results: ITS Impressions Abdomen/Pelvis CT 10/09/24 16:08 IMPRESSION: Trace pericardial effusion. Scattered calcified and noncalcified sub-6 mm pulmonary nodules, likely representing granulomas. Mild inflammatory change surrounding the pancreatic head and uncinate process, correlate for clinical findings of pancreatitis. Mild inflammatory stranding/edema in the proximal bile ducts, presumably related to the pancreatic process, noting that ascending cholangitis could appear similarly. Mild dilation of the third and fourth portions of the duodenum, presumably ileus related to the pancreatic process. Abdomen X-Ray 10/10/24 06:55 Impression: No acute abnormality is seen. Irregular markedly hyperdense opacity in the pelvis. Correlate for surgical/procedural history or traumatic history/foreign body. Renal Ultrasound 10/10/24 11:35 Impression: Unremarkable ultrasound of the kidneys and urinary bladder. Chest CT 10/16/24 15:48 IMPRESSION: Large right and moderate left-sided pleural effusions with adjacent compressive atelectasis. Findings within the right middle and upper lobes suggesting asymmetric pulmonary edema. Small pericardial effusion. Chest X-Ray 10/23/24 07:14 IMPRESSION: 1. Mild airspace opacities in the right upper and lower lung zones and bilateral lung bases which could represent atelectasis or pneumonia. 2. Small bilateral pleural effusions. Labs Labs: Laboratory Tests 10/24/24 06:14 10/24/24 06:14 Calcium 8.3 L Phosphorus 3.0 Magnesium 2.0 Total Bilirubin 0.6 AST 29 ALT 15 Alkaline Phosphatase 194 H Total Protein 5.3 L Albumin 2.7 L
[2024-10-24 12:06] LABS: Glucose Point of Care 136 mg/dl (65-105)
--- NOTE | 2024-10-24 12:22 | P.DS_ITS ---
DS: Admitting Diagnosis Discharge Date 0 10/24/2024 Admitting Diagnosis Weakness DS: Discharge Diagnosis Discharge Diagnosis (1) CHAD (acute kidney injury): Code(s): N17.9 - Acute kidney failure, unspecified Status: Acute Assessment and Plan: Please refer to hospital course for brief summary CHAD with fluid overload on permanent dialysis Patient had tunneled dialysis catheter on 10/20/2024. Nephrology following Trend creatinine monitor (2) Constipation: Code(s): K59.00 - Constipation, unspecified Status: Acute Assessment and Plan: Senna (3) Diabetes: Code(s): E11.9 - Type 2 diabetes mellitus without complications Status: Acute Assessment and Plan: Accu-Cheks q.6 SSI Hold home diabetes medications (4) Hypertension: Qualifiers: Hypertension type: unspecified Qualified Code(s): I10 - Essential (primary) hypertension Code(s): I10 - Essential (primary) hypertension Status: Chronic Assessment and Plan: home emds on hold as hypotensive (5) CHF (congestive heart failure): Code(s): I50.9 - Heart failure, unspecified Status: Acute Assessment and Plan: Last echo 2021 ejection fraction 55-60% cardiology on board (6) Atrial fibrillation with RVR: Code(s): I48.91 - Unspecified atrial fibrillation Status: Acute Assessment and Plan: new onset of afib Continue Cardizem 120mg and holding Eliquis 5mg bid po due to epistaxis and ongoing anemia (7) Anemia: Code(s): D64.9 - Anemia, unspecified Status: Acute Assessment and Plan: Evidence of black tarry stool Hemoglobin stable at 8.1 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 Eliquis on hold Previous history of a bleeding ulcer EGD no significant finding Transfused 2 unit PRBC due to symptomatic anemia (syncope) (8) Nasal bleeding: Code(s): R04.0 - Epistaxis Status: Acute Assessment and Plan: Nasal clamp as needed Status post Afrin-soaked nasal pack No bleeding down posterior pharynx Possibly due to dry nasal nares from oxygen nasal cannula ED physician evaluated and following recommendation ENT consult Status post rhino rocket Plan Ischemic hepatitis AST/ALT 4607/3007, today 134/517 Bili 3.9 now 1.8 Hep B antibody negative GI following Bronchospasm On duoneb treatment Reports intermitted nausea today QTc 511- so ideally avoid medication that could prolong it DVT prophylaxis on Eliquis on hold due to epistaxis DS: Summary Hospital Course Hospital Course: Interval history:78-year-old female with a history of fatty liver, CAD, diabetes type 2, diverticulosis, hypertension, and hyperthyroid presents to the hospital with generalized weakness. Initially, the patient was admitted due to a diagnosis of cholangitis vs pancreatitis due to elevation of transaminase. Later, it was diagnosed as ischemic hepatopathy due to significantly decreased liver enzymes within 24 hours of fluid resuscitation. However, her creatinine was increased, and initially, she had not debrided dialysis. Now, the patient has a tunneled dialysis catheter and will currently undergo scheduled dialysis. During the hospitalization, the patient had an episode of epistaxis, possibly due to dry nasal nares from oxygen and platelet dysfunction from renal failure. She underwent placement of a rhino rocket in the left nasal cavity, and later, it was removed. The patient also underwent upper EGD due to a previous history of bleeding ulcers, but no significant finding this time. The patient also had pleural effusion and was scheduled for thoracentesis but went for a procedure. There was no evidence of pleural effusion, so they did not undergo the procedure . Possibly, pleural effusion would have been decreased due to dialysis. Currently holding anticoagulation due to anemia and epistaxis. Discussed the risks versus benefits of keeping the anticoagulation. The patient will benefit from having the Watchman device or continuing anticoagulation after debating with a medical laboratory technologist. As per nurse cardiology reported no anticoagulation although we do not have official note to confirm. Patient needs to follow-up with her primary medical laboratory technologist and discuss further. Patient needs to follow-up with nephrology for dialysis.In event any further epistaxis please follow up in ED or ENT. Both Jardiance and metformin has been discontinued due to dialysis. Linagliptin will be continued as it is not excreted through renally. Started on sliding scale. Advised to follow-up with PCP for further diabetic management. Discussed with case management in regards to dialysis follow-up and rehab. Patient will be discharged to senior living facility. Later case management will appeal for [facility]. On the day of discharge, the patient was seen and examined. Vital signs were stable. Physical exam were stable and labs were reviewed at length. Discharge instructions, medications, and follow-up appointments were discussed with the patient at length and all day questions were answered. ER warnings were given. Status at Discharge Cognitive/behavioral status at discharge: Stable Time Spent with Patient Time attestation: Total time spent providing and/or coordinating discharge services: 45 minutes Exam Narrative: General: well appearing, appears stated age. HEENT: normocephalic, atraumatic. Mucous membranes moist. EOMI, PERRLA, bilateral sclera anicteric, no conjunctival injection. Neck supple without JVD, lymphadenopathy, or bruit. Respiratory: clear to ascultation bilaterally. No rales/rhonic/wheezes. Cardiovascular: normal S1-S2 upon ascultation. No murmurs, rubs, or clicks. PMI is nondisplaced, capillary refill less than 3 second. Abdomen: Soft, round, no pulsatile masses, nondistended and nontender. No rebound, no guarding. No CVA tenderness, no hepatosplenomegaly. Bowel sounds present Extremities: No cyanosis, clubbing, or edema present. Pulses are palpable 2/2. Active ROM to all four extremities. Neuro: Alert and orientated x 4. PERRLA. Cranial nerves 2-12 intact without focal deficit. Skin: Warm, dry, and intact, without rash, erythema, or lesion. Psych: pleasant, cooperative, normal speech, normal affect, no hallucinations, no dysarthia Const: General: comfortable DS: Data Data Completed and Pending Pending studies at discharge: Pending at discharge 10/17/24 14:38 Cytology [PTH] Routine Labs on day of discharge: Labs from last 24 hours 10/24/24 10/24/24 10/24/24 11:50 06:14 06:08 WBC 8.1 RBC 2.92 L Hgb 8.6 L Hct 27.0 L MCV 92.5 MCH 29.5 MCHC 31.9 L RDW 18.6 H Plt Count 270 MPV 9.9 Immature Gran % (Auto) 1.5 H Neut % (Auto) 66.3 Lymph % (Auto) 17.6 L [place] % (Auto) 10.5 H Eos % (Auto) 3.6 Baso % (Auto) 0.5 Lymph # (Auto) 1.42 [place] # (Auto) 0.9 H Eos # (Auto) 0.3 Baso # (Auto) 0.0 Abs Immat Gran (auto) 0.12 H Absolute Neuts (auto) 5.4 Absolute Nucleated RBC 0.000 Nucleated RBC % 0.0 Sodium 134 L Potassium 3.7 Chloride 104 Carbon Dioxide 28 Anion Gap 2 L BUN 17 D Creatinine 4.03 H Estim Creat Clear Calc 10 Estimated GFR 11 L Glucose 90 POC Capillary Glucose 136 H 92 Calcium 8.3 L Phosphorus 3.0 Magnesium 2.0 Total Bilirubin 0.6 AST 29 ALT 15 Alkaline Phosphatase 194 H Total Protein 5.3 L Albumin 2.7 L 10/23/24 10/23/24 10/23/24 23:19 17:31 12:46 WBC RBC Hgb Hct MCV MCH MCHC RDW Plt Count MPV Immature Gran % (Auto) Neut % (Auto) Lymph % (Auto) Mes[place] % (Auto) Eos % (Auto) Baso % (Auto) Lymph # (Auto) [place] # (Auto) Eos # (Auto) Baso # (Auto) Abs Immat Gran (auto) Absolute Neuts (auto) Absolute Nucleated RBC Nucleated RBC % Sodium Potassium Chloride Carbon Dioxide Anion Gap BUN Creatinine Estim Creat Clear Calc Estimated GFR Glucose POC Capillary Glucose 110 H 112 H 79 Calcium Phosphorus Magnesium Total Bilirubin AST ALT Alkaline Phosphatase Total Protein Albumin Discharge Plan Discharge Attending physician on discharge: Ernie Alfaro Consulting providers: Adriana Flores; Álvaro Vanegas; Jacobo Mart; Jamie Pathak Discharging Clinician: Ernie Alfaro Anticipated Discharge Date/Time: 10/24/24 12:52 Patient Disposition: NH Senior Care/Asst Living Activity: as tolerated Diet: diabetic and renal Discharge Instructions: Patient needs to follow up with Nephrology for dialysis Patient needs to follow-up with Cardiology for anticoagulation discussion with Dr. Veloz Patient needs to follow-up with the ENT if any further episode of epistaxis Patient is not restarted on blood thinner due to bleeding and anemia Patient needs to check her hemoglobin level in a week and discuss the result with PCP/Nephrology Patient diabetic medications metformin and Jardiance discontinued due to dialysis. Patient is discharged with sliding scale insulin and please discuss with PCP for further diabetic management. Patient Instructions: Antibiotic Form Patient Language: Fijian Stand Alone Forms: General Discharge Information Follow-up/Referrals: Paulo Veloz MD [Physician] - (Anticoagulation decision) Jacobo Mart MD [Physician] - Felix Powell MD [Primary Care Provider] - Álvaro Vanegas MD [Physician] - Mickey Cobos MD [Physician] - Discharge Medications: New buspirone 5 mg Tablet 5 mg PO Q12HR Qty: 30 0RF diltiazem HCl 120 mg Capsule,Extended Release 24 Hr 120 mg PO QAM Qty: 30 0RF oxymetazoline [Nasal Decongestant (oxymetazl)] 0.05 % [place],Non-Aerosol 1 spray intranasal Q12HR PRN (Reason: Dryness) Qty: 30 0RF (DME) blood-glucose meter [OneTouch Verio Flex meter] Misc Qty: 1 0RF Rx Instructions: May substitute to in-stock meter and/or covered by insurance. Use As Directed (DME) OneTouch Verio test strips Strip Qty: 1 0RF Rx Instructions: May substitute to in-stock and/or covered by insurance strips. Use As Directed (DME) pen needle, diabetic 32 gauge x 5/32 Needle Qty: 1 0RF Rx Instructions: As Directed (DME) lancets [OneTouch Delica Plus Lancet] 30 gauge misc Qty: 1 0RF Rx Instructions: May substitute to in-stock and/or covered by insurance lancets. Use As Directed (DME) insulin syringe,safety needle 0.5 mL 31 gauge x 5/16 Syringe Qty: 1 0RF Rx Instructions: As Directed insulin lispro [Humalog KwikPen Insulin] 100 unit/mL insulin pen 1 sliding scale dose subcut USEASDIRECTD Qty: 15 0RF Rx Instructions: Low Dose 71-149: 0 units 150-199: 0 units 200-249: 2 units 250-299: 4 units 300-349: 8 units 350-399: 10 units > 400: Call MD Continued aspirin [Adult Low Dose Aspirin] 81 mg tablet,delayed release (DR/EC) 81 mg PO DAILY ascorbic acid (vitamin C) 1,000 mg tablet 1 g PO QPM cyanocobalamin (vitamin B-12) [Vitamin B-12] 1,000 mcg Tablet 1,000 mcg PO QPM biotin 300 mcg Tablet 300 mg BYMOUTH DAILY omega-3 fatty acids 1,000 mg Capsule 1,000 mg PO QPM turmeric 1,000 mg BYMOUTH DAILY cholecalciferol (vitamin D3) 25 mcg (1,000 unit) Tablet 2,000 unit PO DAILY calcium 600 mg Capsule 1,200 mg PO HS Folate 1,330 mg PO DAILY calcium polycarbophil [Fiber (calcium polycarbophil)] 625 mg Tablet 625 mg PO DAILY escitalopram oxalate 20 mg tablet See Rx Instructions .ROUTE .COMPLEX Qty: 90 1RF Dose Instruction: TAKE 1 TABLET BY MOUTH DAILY Rx Instructions: TAKE 1 TABLET BY MOUTH DAILY levothyroxine 150 mcg tablet 150 mcg PO EVERY OTHER DAY Qty: 45 0RF levothyroxine 125 mcg tablet See Rx Instructions .ROUTE .COMPLEX Qty: 90 1RF Dose Instruction: TAKE 1 TABLET BY MOUTH EVERY OTHER DAY Rx Instructions: TAKE 1 TABLET BY MOUTH EVERY OTHER DAY Tradjenta 5 mg tablet 5 mg PO QAM Qty: 90 1RF montelukast 10 mg tablet See Rx Instructions .ROUTE .COMPLEX Qty: 90 0RF Dose Instruction: TAKE 1 TABLET BY MOUTH AT BEDTIME Rx Instructions: TAKE 1 TABLET BY MOUTH AT BEDTIME Held rosuvastatin 40 mg tablet See Rx Instructions .ROUTE .COMPLEX Qty: 90 0RF Hold Instructions: Resume on 12/01/24. Please discuss with your PCP before continuing. Held due to increased LFTs Dose Instruction: TAKE 1 TABLET BY MOUTH DAILY Rx Instructions: TAKE 1 TABLET BY MOUTH DAILY Discontinued losartan 50 mg tablet 50 mg PO DAILY Qty: 90 1RF levofloxacin 750 mg tablet 750 mg PO Q24H metronidazole 500 mg tablet 500 mg PO Q8H metformin 500 mg tablet extended release 24 hr See Rx Instructions .ROUTE .COMPLEX Qty: 360 0RF Dose Instruction: TAKE 2 TABLETS BY MOUTH TWICE DAILY Rx Instructions: TAKE 2 TABLETS BY MOUTH TWICE DAILY Jardiance 25 mg tablet 25 mg PO DAILY Qty: 90 1RF Date of admission: 10/11/24 10:13 Primary Care Provider: Felix Powell Admitting Provider: Cinda Bliss Attending physician on admission: Cinda Bliss Condition: Stable
== END 2024-10-24 15:00 | DRG 441 ==
LOC: ANHED 17:28 → ANHIMU 18:29 → ANH2MED 10-14 10:10
PROVIDERS: Internal Medicine; Internal Medicine Gastroenterology; Internal Medicine Nephrology; Nurse Practitioner; Nurse Practitioner Gerontology; Physician Assistant; Surgery; Admitting Provider Family Medicine; Emergency Provider Emergency Medicine; PCP Internal Medicine; Visit Provider General Practice
PROC: 0DJ08ZZ Inspection of Upper Intestinal Tract, Via Natural or Artificial Opening Endoscopic (ICD-10-PCS; principal; 2024-10-18 15:30)
PROC: 0JH63XZ Insertion of Tunneled Vascular Access Device into Chest Subcutaneous Tissue and Fascia, Percutaneous Approach (ICD-10-PCS; CPT 36908; principal; 2024-10-20 15:00)
DX: K72.00 Acute and subacute hepatic failure without coma (principal); J96.01 Acute respiratory failure with hypoxia; E87.20 Acidosis, unspecified; I13.0 Hypertensive heart and chronic kidney disease with heart failure and stage 1 through stage 4 chronic kidney disease, or unspecified chronic kidney disease; N17.9 Acute kidney failure, unspecified; I50.32 Chronic diastolic (congestive) heart failure; R44.3 Hallucinations, unspecified; K92.1 Melena; J90 Pleural effusion, not elsewhere classified; D63.1 Anemia in chronic kidney disease; E11.22 Type 2 diabetes mellitus with diabetic chronic kidney disease; E78.2 Mixed hyperlipidemia; E03.9 Hypothyroidism, unspecified; E55.9 Vitamin D deficiency, unspecified; F41.9 Anxiety disorder, unspecified; F32.A Depression, unspecified; G89.29 Other chronic pain; I48.0 Paroxysmal atrial fibrillation; I25.10 Atherosclerotic heart disease of native coronary artery without angina pectoris; J98.01 Acute bronchospasm; J44.9 Chronic obstructive pulmonary disease, unspecified; K76.0 Fatty (change of) liver, not elsewhere classified; K59.00 Constipation, unspecified; K57.90 Diverticulosis of intestine, part unspecified, without perforation or abscess without bleeding; M79.7 Fibromyalgia; M35.3 Polymyalgia rheumatica; N18.9 Chronic kidney disease, unspecified; R04.0 Epistaxis; Z95.5 Presence of coronary angioplasty implant and graft; Z79.02 Long term (current) use of antithrombotics/antiplatelets; Z79.82 Long term (current) use of aspirin; Z79.4 Long term (current) use of insulin; Z79.84 Long term (current) use of oral hypoglycemic drugs; Z85.850 Personal history of malignant neoplasm of thyroid; Z90.49 Acquired absence of other specified parts of digestive tract; Z90.89 Acquired absence of other organs; Z87.891 Personal history of nicotine dependence; R91.1 Solitary pulmonary nodule; E86.0 Dehydration; I95.9 Hypotension, unspecified
CPT/HCPCS: 32555; 36415; 36430; 36600; 71045; 71250; 74018; 74176; 76775; 77001; 80048; 80053; 81001; 81050; 82010; 82248; 82274; 82550; 82570; 82607; 82728; 82746; 82805; 82948; 83010; 83520; 83540; 83550; 83605; 83615; 83690; 83735; 83880; 83883; 84100; 84145; 84155; 84156; 84165; 84166; 84238; 84300; 84439; 84443; 84466; 84480; 84484; 84540; 85014; 85018; 85025; 85027; 85046; 85610; 85652; 85730; 85999; 86036; 86038; 86039; 86140; 86160; 86334; 86335; 86704; 86706; 86850; 86880; 86900; 86901; 86923; 87040; 87340; 93005; 94640; 96361; 96365; 96375; 97110; 97162; 97166; 97530; 97535; 99285; A9270; C1750; C1751; C1752; C8929; G0257; G0378; J0690; J0780; J1171; J1644; J1938; J2003; J2004; J2060; J2371; J2405; J2470; J2543; J2704; J2765; J3010; J7030; J7040; J7050; J7120; P9016; P9047; Q5105; Q9957

== ENCOUNTER 2024-12-16 13:31 | Outpatient (CLI) | payer MEDICARE, SELFPAY ==
--- OUTSIDE RECORDS SUMMARY | 2024-12-16 13:32 | XMS_ITS | Encounter Summary ---
Author Organization [facility] Healthcare Address [address] [place] [address] Care Team Providers Care Driver Guide Name Role Phone Felix Powell MD Primary Care Provider [phone] Reason for Referral * Cardiology (Routine) - Closed Specialty Diagnoses / Procedures Referred By Contac t Referred To Contact Procedures ECG 12 lead Cheryle Bowling MD [address] [place] [address] Phone: tel: Referral ID Status Reason Start Date Expiration Date Visits Re quested Visits Authorized [id number] Closed 12/13/2024 01/12/2026 1 1 Encounter Details Date Type Department Care Team (Late st Contact Info) Description 12/13/2024 Orders Only [facility] Cardiology at [address] [place] [phone] Cheryle Bowling MD [address] [place] [address] Social History Tobacco Use Types Packs/Day Years Used Date Smoking Tobacco: Former Smokeless Tobacco: Never Alcohol Use Standard Drinks/Week Comments No 0 (1 standard drink = 0.6 oz pur e alcohol) Comments Unknown Sex and Gender Information Value Date Recorded Sex Assigned at Not on file 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 Gender Identity Female 09/29/2020 9:57 AM CDT Sexual Orientation Straight 09/29/2020 9: 57 AM CDT documented as of this encounter Plan of Treatment Not on file documented as of this encounter Procedures Procedure Name Priority Date/Time Associated Diagnosis Comments ECG 12-LEAD Routine 10/18/2024 12:48 PM CDT documented in this encounter Results * ECG 12 lead (10/18/2024 12:48 PM CDT) us Historical Provider ECG ORDERABLES Edited Re sult - Final documented in this encounter Visit Diagnoses Not on filedocumented in this encounter Care Teams Driver Guide Relationship Specialty Start Date End Date Felix Powell MD [address] [facility] [address] [place] [phone] PCP - General 05/24/13 documented as of this encounter
--- OUTSIDE RECORDS SUMMARY | 2024-12-16 13:32 | XMS_ITS | Clinical Summary ---
Author Organization [facility] [place] [address] Address [address] [place] [address] Care Team Providers Care Chief Technician X Ray Name Role Phone Felix Powell MD Primary Care Provider [phone] Allergies Active Allergy Reactions Criticality Noted Date Comments Iodine And Iodide Containing Products Morphine Medications rosuvastatin (CRESTOR) 40 mg tablet take 1 Tablet by oral route every day 0 0 3 Active aspirin 81 mg tabletIndication s:Myocardial Reinfarction Prevention Take 1 tablet (81 mg total) by mouth daily. 30 tablet 11 8 12/26/19 25 Active gabapentin (NEURONTIN) 100 mg capsule Take 1 capsule (100 mg total) by mouth 2 (two) times a day Active montelukast (SINGULAIR) 10 mg tablet Take 1 tablet (10 mg total) by mouth nightly Active escitalopram (LEXAPRO) 20 mg tablet Take 1 tablet (20 mg total) by mouth daily Active levothyroxine (SYNTHROID) 137 mcg tablet Take 1 tablet (137 mcg total) by mouth front desk supervisor before breakfast Active buPROPion XL (WELLBUTRIN XL) 300 mg 24 hr tablet Take 1 tablet (300 mg total) by mouth daily Active pantoprazole DR (PROTONIX) 40 mg EC tablet Take 1 tablet (40 mg total) by mouth daily Active linaGLIPtin (TRADJENTA) 5 mg tabletIndication s:type 2 diabetes mellitus Take 1 tablet (5 mg total) by mouth daily Active nitroglycerin (NITROSTAT) 0.4 mg SL tabletIndication s:Coronary artery disease involving chicken ranch coronary artery of chicken ranch heart without angina pectoris Place 1 tablet [...] (six) hours as needed for pain Active empagliflozin-li nagliptin 10-5 mg tablet Take 1 tablet by mouth daily Active cyanocobalamin, vitamin B-12, (VITAMIN B-12 ORAL) Take by mouth Active folic acid (FOLVITE) 1 mg tablet Take 1 tablet (1 mg total) by mouth daily Active metFORMIN XR (GLUCOPHAGE XR) 500 mg 24 hr tablet Take 2 tablets (1,000 mg total) by mouth 2 (two) times a day 2 Active metoprolol XL (TOPROL-XL) 25 mg extended release tabletIndication s:Coronary artery disease involving chicken ranch coronary artery of chicken ranch heart without angina pectoris,Essenti al hypertension Take 1 tablet (25 mg total) by mouth daily 90 tablet 3 5 12/14/19 26 Active metoprolol XL (TOPROL-XL) 50 mg extended release tablet Take 1 tablet (50 mg total) by mouth daily 12/14/19 25 Discontin ued(Thera py completed ) Active Problems Problem Noted Date Diagnosed Date History of atrial fibrillation 12/13/2024 Pulmonary hypertension 09/03/2024 Chronic obstructive pulmonary disease 02/23/2021 LBBB (left bundle branch block) 02/23/2021 PMR (polymyalgia rheumatica) 02/23/2021 Hyperlipidemia LDL goal <70 02/23/2021 Essential hypertension 02/23/2021 Former smoker 02/23/2021 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lving chicken ranch coronary artery of chicken ranch heart without angina pectoris 06/19/2017 History of coronary artery stent placement 06/19 Encounters Date Type Department Care Team Description 12/13/2024 10:30 AM CDT Ancillary Procedure [facility] Cardiology at [address] [place] [phone] History of atrial fibrillation 12/13/2024 10:00 AM CDT Office Visit [facility] Cardiology at [address] [place] [phone] Checo Allen MD Coronary artery disease involving chicken ranch coronary artery of chicken ranch heart without angina pectoris (Primary Dx); Essential hypertension; Hyperlipidemia LDL goal <70; LBBB (left bundle branch block); Pulmonary hypertension (HCC); History of atrial fibrillation 12/13/2024 Orders Only [facility] Cardiology at [address] [place] [phone] Cheryle Bowling MD 11/19/2024 Telephone [facility] Cardiology [address] [facility] [address] [place] [phone] Rocio Bone NP 10/18/2024 Orders Only [facility] Cardiology [address] [facility] [address] [place] [phone] Adriana Flores MD 10/12/2024 Orders Only [facility] Cardiology [address] [facility] [address] [place] [phone] Armani Najera MD 09/23/2024 3:00 PM CDT Ancillary Procedure [facility] Cardiology at [address] [place] [phone] Coronary artery disease involving chicken ranch coronary artery of chicken ranch heart without angina pectoris; Essential hypertension; LBBB (left bundle branch block); Pulmonary hypertension (HCC) 09/23/2024 Results Follow-Up [facility] Cardiology at [address] [place] [phone] Checo Allen MD Transthoracic Echo (TTE) Complete W Doppler/CF from Last 3 Months Medical History Medical [...] on file 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 Gender Identity Female 09/29/2020 9:57 AM CDT Sexual Orientation Straight 09/29/2020 9: 57 AM CDT Obstetrics History Last Filed Vital Signs Vital Sign Reading Time Taken Comments Blood Pressure 100/44 12/13/2024 10:07 AM CDT Pulse 68 12/13/2024 10:07 AM CDT Temperature - - Respiratory Rate 16 12/26/2023 11:32 AM CDT Oxygen Saturation 96% 12/13/2024 10:07 AM CDT Inhaled Oxygen Concentration - - Weight 68 kg (150 lb) 12/13/2024 10:07 AM CDT Height 170.2 cm (5' 7) 12/13/2024 10:07 AM CDT Body Mass Index 23.49 12/13/2024 10:07 AM CDT Plan of Treatment Health Maintenance Due Date Last Done Comments Depression Screening 1945 Fall Risk Assessment 1945 Osteoporosis Screening-Bone Density Scan 1945 DTaP/Tdap/Td Vaccine (1 - Tdap) 11/05/1955 Hepatitis B Screening 1962 Zoster Vaccine (2 of 3) 01/02/2009 11/07/2008 Well Visit 65+ 2009 Pneumococcal vaccine 65+ (2 of 2 - PCV) 03/30/2018 03/30/2017, 11/06/2009 Influenza Vaccine (#1) 2025 9, 01/06/2017, 02/04/2016, Additional history exists Procedures Procedure Name Priority Date/Time Associated Diagnosis Comments ECG 12-LEAD Routine 10/18/2024 12:48 PM CDT CARDIOLOGY DOCUMENT SCAN Routine 10/12/2024 11:11 AM CDT CARDIOLOGY DOCUMENT SCAN Routine 10/11/2024 4:50 PM CDT CARDIOLOGY DOCUMENT SCAN Routine 10/10/2024 11:00 AM CDT TRANSTHORACIC ECHO (TTE) COMPLETE W DOPPLER/CF Routine 09/23/2024 1:52 PM CDT Coronary artery disease involving chicken ranch coronary artery of chicken ranch heart without angina pectoris Essential hypertension LBBB (left bundle branch block) Pulmonary hypertension (HCC) from Last 3 Months Results * ECG 12 lead (10/18/2024 12:48 PM CDT) us Historical Provider ECG ORDERABLES Edited Re sult - Final * Cardiology Document Scan (10/12/2024 11:11 AM CDT) Anatomical Region Laterality Modality Other us Merari Akins MD [facility] PRO CEDURES Final Result * Cardiology Document Scan (10/11/2024 4:50 PM CDT) Anatomical Region Laterality Modality Other us Armani Najera MD [facility] CARDIAC SERVICES PROCEDURES F inal Result * Cardiology Document Scan (10/10/2024 11:00 AM CDT) Anatomical Region Laterality Modality Other us Adriana Flores MD CV CARDIAC SERVICES PROCEDURES Final Result * Transthoracic Echo (TTE) Complete W Doppler/CF (09/23/2024 1:52 PM CDT) Estimated EF 55-60 % CONS SCIMAGE EF Mod BP 52 % CONS SCIMAGE Anatomical Region Laterality Modality Ultrasound 09/23/2024 1:52 PM CDT Narrative 09/23/2024 4:44 PM CDT [facility] Cardiology [address], [address], [place] [address] [phone] [phone] Echocardiographic Report Patient Name: ALLYSON STAHL C : 1945 Study Date: 09/23/2024 1:52:45 PM Gender: F Tech: Location: [facility] Ref Provider: CHECO ALLEN Height(Cm): 170 BSA: [...] Site: Exam was interpreted at [facility]. Left Ventricle: Normal left ventricular systolic [...] Procedure Note Checo Allen MD - 09/23/2024 [facility] Cardiology [address] [facility], [address], [place] [address] [phone] [phone] Echocardiographic Report Patient Name: ALLYSON STAHL C [...] Site: Exam was interpreted at [facility]. Left Ventricle: Normal left ventricular systolic [...] Checo Allen MD 09/23/2024 4:43:32 PM CDT Checo Allen MD CV ECHO PROCEDURES Final Result from Last 3 Months Insurance [facility] MEDIC[facility]AGE [facility] Address: [address] [address] [place] [address] [facility] MEDIC[facility] Address: [address] [address] [place] [address] Care Teams Chief Technician X Ray Relationship Specialty Start Date End Date Felix Powell MD [address] [place] [address] [place] [address] PCP - General 05/24/13
--- OUTSIDE RECORDS SUMMARY | 2024-12-16 13:32 | XMS_ITS | Encounter Summary ---
Author Organization [facility] Healthcare Address [address] [place] [address] Care Team Providers Care Golf Course Manager Name Role Phone Felix Powell MD Primary Care Provider [phone] Reason for Visit * Diagnostic Imaging (Routine) - Pending Review Specialty Diagnoses / Procedures Referred By Danyell stinson Referred To Contact Procedures Breast Imaging Screening Outside Reference Transcribed Order, Provider Referral ID Status Reason Start Date Expiration Date V isits Requested Visits Authorized [id number] Pending Review 09/06/2024 10/06/2025 1 1 Encounter Details Date Type Department Care Team (Late st Contact Info) Description 01/18/2019 Hospital Encounter [facility] [address] [place], [place] [id number] Social History Tobacco Use Types Packs/Day Years Used Date Smoking Tobacco: Former Smokeless Tobacco: Never Alcohol Use Standard Drinks/Week Comments No 0 (1 standard drink = 0.6 oz pur e alcohol) Comments Unknown Sex and Gender Information Value Date Recorded Sex Assigned at Not on file 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
--- OUTSIDE RECORDS SUMMARY | 2024-12-16 13:32 | XMS_ITS | Encounter Summary ---
Author Organization [facility] Healthcare Address [address] [place] [address] Care Team Providers Care Nutrition Specialist Name Role Phone Felix Powell MD Primary Care Provider [phone] Reason for Visit * Diagnostic Imaging (Routine) - Pending Review Specialty Diagnoses / Procedures Referred By Danyell stinson Referred To Contact Procedures Breast Imaging Diagnostic Outside Reference Transcribed Order, Provider Referral ID Status Reason Start Date Expiration Date V isits Requested Visits Authorized [id number] Pending Review 09/06/2024 10/06/2025 1 1 Encounter Details Date Type Department Care Team (Late st Contact Info) Description 02/29/2020 Hospital Encounter [facility] [address] [place], [place] [id number] Social History Tobacco Use Types Packs/Day Years Used Date Smoking Tobacco: Former Smokeless Tobacco: Never Alcohol Use Standard Drinks/Week Comments No 0 (1 standard drink = 0.6 oz pur e alcohol) Comments Unknown Sex and Gender Information Value Date Recorded Sex Assigned at Not on file 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 There will be no report generated by a [facility] Radiologist. Narrative [facility] - 09/06/2024 2:42 PM CDT EXAMINATION: Images For Reference Purposes Only us Provider Transcribed Order IMG MAMMO PROCEDURES Final Result [facility] documented in this encounter Visit Diagnoses Not on filedocumented in this encounter Care Teams Nutrition Specialist Relationship Specialty Start Date End Date Felix Powell MD [address] [facility] [address] [place] [address] PCP - General 05/24/13 documented as of this encounter
--- OUTSIDE RECORDS SUMMARY | 2024-12-16 13:32 | XMS_ITS | Encounter Summary ---
Author Organization [facility] Healthcare Address [address] [place] [address] Care Team Providers Care Telecommunications Project Manager Name Role Phone Felix Powell MD Primary Care Provider [phone] Reason for Visit * Diagnostic Imaging (Routine) - Pending Review Specialty Diagnoses / Procedures Referred By Danyell stinson Referred To Contact Procedures Breast Imaging US Outside Reference Transcribed Order, Provider Referral ID Status Reason Start Date Expiration Date V isits Requested Visits Authorized [id number] Pending Review 09/06/2024 10/06/2025 1 1 Encounter Details Date Type Department Care Team (Late st Contact Info) Description 06/11/2019 12:05 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 Hospital Encounter [facility] ([facility]) [address] [place] [id number] Social History Tobacco Use Types Packs/Day Years Used Date Smoking Tobacco: Former Smokeless Tobacco: Never Alcohol Use Standard Drinks/Week Comments No 0 (1 standard drink = 0.6 oz pur e alcohol) Comments Unknown Sex and Gender Information Value Date Recorded Sex Assigned at Not on file Legal Sex Female 2:03 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 Gender Identity Female 09/29/2020 9:57 AM CDT Sexual Orientation Straight 09/29/2020 9: 57 AM CDT documented as of this encounter Plan of Treatment Not on file documented as of this encounter Procedures Procedure Name Priority Date/Time Associated Diagnosis Comments BREAST IMAGING US OUTSIDE REFERENCE Routine 06/11/2019 12:05 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 documented in this encounter Results * Breast Imaging US Outside Reference (06/11/2019 12:05 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) Impressions [facility] - 09/06/2024 2:42 PM CDT [...] on filedocumented in this encounter Care Teams Telecommunications Project Manager Relationship Specialty Start Date End Date eFlix Powell MD [address] [place] [address] [place] [address] PCP - General 05/24/13 documented as of this encounter
--- OUTSIDE RECORDS SUMMARY | 2024-12-16 13:32 | XMS_ITS | Clinical Summary ---
Author Organization [facility] Address [facility] [place] [address] Care Team Providers Care Ship Engines Operating Engineer Name Role Phone Felix Powell MD Primary Care Provider [phone] Allergies Active Allergy Reactions Criticality Noted Date [...] Blood Gluc Sensor (FREESTYLE ASHA 2 SENSOR) [facility] see administration instructions. 3 Active BANOPHEN 50 MG Cap capsule 2 Active glimepiride (AMARYL) 2 MG tablet Take 1 tablet (2 mg total) by mouth daily with breakfast. 2 Active folic acid (FOLVITE) 1 MG tablet Take 1 tablet (1 mg total) by mouth daily. Active Active Problems Problem Noted Date Diagnosed Date Sacroiliitis 04/19/2022 Overview (04/19/2022): Added automatically from request for surgery [id number] Social History Tobacco Use Types Packs/Day Years [...] 1:16 PM CDT Height 170.2 cm (5' 7) 09/25/2022 1:16 PM CDT Body Mass Index 34.46 09/25/2022 1:16 PM CDT Plan of Treatment Health Maintenance Due Date Last Done Comments DTaP, Tdap and Td Vaccines (1 - [...] patient's age to complete this topic Insurance [facility] Care Teams Ship Engines Operating Engineer Relationship Specialty Start Date End Date Felix Powell MD [address] [place] [address] PCP - General INTERNAL MEDICINE 03/15/22
--- OUTSIDE RECORDS SUMMARY | 2024-12-16 13:32 | XMS_ITS | Encounter Summary ---
Author Organization [facility] Healthcare Address [address] [place] [address] Care Team Providers Care Subacute Nurse Name Role Phone Felix Powell MD Primary Care Provider [phone] Reason for Visit * Diagnostic Imaging (Routine) - Pending Review Specialty Diagnoses / Procedures Referred By Danyell stinson Referred To Contact Procedures Breast Imaging US Outside Reference Transcribed Order, Provider Referral ID Status Reason Start Date Expiration Date V isits Requested Visits Authorized [id number] Pending Review 09/06/2024 10/06/2025 1 1 Encounter Details Date Type Department Care Team (Late st Contact Info) Description 03/01/2020 Hospital Encounter [facility] [address] [place], [place] [id number] Social History Tobacco Use Types Packs/Day Years Used Date Smoking Tobacco: Former Smokeless Tobacco: Never Alcohol Use Standard Drinks/Week Comments No 0 (1 standard drink = 0.6 oz pur e alcohol) Comments Unknown Sex and Gender Information Value Date Recorded Sex Assigned at Not on file 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 There will be no report generated by a [facility] Radiologist. Narrative [facility] - 09/06/2024 2:42 PM CDT EXAMINATION: Images For Reference Purposes Only us Provider Transcribed Order IMG MAMMO PROCEDURES Final Result [facility] documented in this encounter Visit Diagnoses Not on filedocumented in this encounter Care Teams Subacute Nurse Relationship Specialty Start Date End Date Felix Powell MD [address] [facility] [address] [place] [address] PCP - General 05/24/13 documented as of this encounter
--- OUTSIDE RECORDS SUMMARY | 2024-12-16 13:32 | XMS_ITS | Encounter Summary ---
Author Organization [facility] Healthcare Address [address] [place] [address] Care Team Providers Care Lead Database Administrator Name Role Phone Felix Powell MD Primary Care Provider [phone] Reason for Visit * Diagnostic Imaging (Routine) - Pending Review Specialty Diagnoses / Procedures Referred By Danyell stinson Referred To Contact Procedures Breast Imaging Diagnostic Outside Reference Transcribed Order, Provider Referral ID Status Reason Start Date Expiration Date V isits Requested Visits Authorized [id number] Pending Review 09/06/2024 10/06/2025 1 1 Encounter Details Date Type Department Care Team (Late st Contact Info) Description 01/27/2019 Hospital Encounter [facility]iology [facility] [address] [place], [place] [id number] Social History Tobacco Use Types Packs/Day Years Used Date Smoking Tobacco: Former Smokeless Tobacco: Never Alcohol Use Standard Drinks/Week Comments No 0 (1 standard drink = 0.6 oz pur e alcohol) Comments Unknown Sex and Gender Information Value Date Recorded Sex Assigned at Not on file Legal 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 There will be no report generated by a [facility] Radiologist. Narrative [facility] - 09/06/2024 2:42 PM CDT EXAMINATION: Images For Reference Purposes Only us Provider Transcribed Order IMG MAMMO PROCEDURES Final Result [facility] documented in this encounter Visit Diagnoses Not on filedocumented in this encounter Care Teams Lead Database Administrator Relationship Specialty Start Date End Date Felix Powell MD [address] [facility] [address] [place] [address] PCP - General 05/24/13 documented as of this encounter
--- OUTSIDE RECORDS SUMMARY | 2024-12-16 13:32 | XMS_ITS | Encounter Summary ---
Author Organization [facility] Healthcare Address [address] [place] [address] Care Team Providers Care Remnant Sorter Name Role Phone Felix Powell MD Primary Care Provider [phone] Reason for Visit * Diagnostic Imaging (Routine) - Pending Review Specialty Diagnoses / Procedures Referred By Danyell stinson Referred To Contact Procedures Breast Imaging Diagnostic Outside Reference Transcribed Order, Provider Referral ID Status Reason Start Date Expiration Date V isits Requested Visits Authorized [id number] Pending Review 09/06/2024 10/06/2025 1 1 Encounter Details Date Type Department Care Team (Late st Contact Info) Description 06/11/2019 Hospital Encounter 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 Gender Identity Female 09/29/2020 9:57 AM CDT Sexual Orientation Straight 09/29/2020 9: 57 AM CDT documented as of this encounter Plan of Treatment Not on file documented as of this encounter Procedures Procedure Name Priority Date/Time Associated Diagnosis Comments BREAST IMAGING MG DIAGNOSTIC OUTSIDE REFERENCE Routine 06/11/2019 12:00 AM SPONGE HOOKER documented in this encounter Results * Breast Imaging Diagnostic Outside Reference (06/11/2019 12:00 AM SPONGE HOOKER) Impressions [facility] - 09/06/2024 2:42 PM CDT These images are for Reference purposes only and have not been reviewed by [facility]. There will be no report generated by a [facility] Radiologist. Narrative [facility] - 09/06/2024 2:42 PM CDT EXAMINATION: Images For Reference Purposes Only us Provider Transcribed Order IMG MAMMO PROCEDURES Final Result [facility] documented in this encounter Visit Diagnoses Not on filedocumented in this encounter Care Teams Remnant Sorter Relationship Specialty Start Date End Date Felix Powell MD [address] [facility] [address] [place] [address] PCP - General 05/24/13 documented as of this encounter
[2024-12-16 14:27] LABS: Anion Gap 7 mmol/L (4-12); Blood Urea Nitrogen 21 mg/dL (7-17); Calcium 9.6 mg/dL (8.4-10.2); Carbon Dioxide 24 mmol/L (22-30); Chloride 110 mmol/L (98-107); Estimated Glomerular Filt Rate 24; Glucose 115 mg/dL (65-110); Potassium 3.9 mmol/L (3.4-5.0); Sodium 141 mmol/L (137-145)
[2024-12-16 14:28] LABS: Cholesterol 210 mg/dL (0-200); HDL Direct 54 mg/dL; Triglycerides 181 mg/dL (<150)
[2024-12-16 14:54] LABS: Free T4 Free Thyroxine 1.31 ng/dL (0.78-2.19)
[2024-12-16 15:06] LABS: Thyroid Stimulating Hormone < 0.015 uIU/mL (0.465-4.680)
[2024-12-16 15:09] LABS: Hemoglobin A1C 4.1 % (<5.7)
== END 2024-12-16 13:32 | disposition home or self-care (01) ==
PROVIDERS: PCP Internal Medicine; Visit Provider Internal Medicine Nephrology
DX: N17.9 Acute kidney failure, unspecified (principal); E11.9 Type 2 diabetes mellitus without complications; E03.9 Hypothyroidism, unspecified; E78.2 Mixed hyperlipidemia
CPT/HCPCS: 36415; 80048; 80061; 83036; 84439; 84443

== ENCOUNTER 2024-12-27 09:44 | Outpatient (CLI) | payer MEDICARE, SELFPAY ==
--- OUTSIDE RECORDS SUMMARY | 2019-01-18 | XMS_ITS | Encounter Summary ---
Author Organization [facility] Healthcare Address [address] [place] [address] Care Team Providers Care Metallurgist Helper Name Role Phone Felix Powell MD Primary Care Provider [phone] Reason for Visit * Diagnostic Imaging (Routine) - Pending Review Specialty Diagnoses / Procedures Referred By Danyell stinson Referred To Contact Procedures Breast Imaging Screening Outside Reference Transcribed Order, Provider Referral ID Status Reason Start Date Expiration Date V isits Requested Visits Authorized [id number] Pending Review 09/06/2024 10/06/2025 1 1 Encounter Details Date Type Department Care Team (Late st Contact Info) Description 01/18/2019 Hospital Encounter [facility] Radiology [facility] [address] [place], [place] [id number] Social History Tobacco Use Types Packs/Day Years Used Date Smoking Tobacco: Former Smokeless Tobacco: Never Alcohol Use Standard Drinks/Week Comments No 0 (1 standard drink = 0.6 oz pur e alcohol) Comments Unknown Sex and Gender Information Value Date Recorded Sex Assigned at Not on file 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 There will be no report generated by a [facility] Radiologist. Narrative [facility]MO[facility] - 09/06/2024 2:42 PM CDT EXAMINATION: Images For Reference Purposes Only us Provider Transcribed Order IMG MAMMO PROCEDURES Final Result [facility] documented in this encounter Visit Diagnoses Not on filedocumented in this encounter Care Teams Metallurgist Helper Relationship Specialty Start Date End Date Felix Powell MD [address] [facility] [address] [place] [address] PCP - General 05/24/13 documented as of this encounter
--- OUTSIDE RECORDS SUMMARY | 2019-01-27 | XMS_ITS | Encounter Summary ---
Author Organization [facility] Healthcare Address [address] [place] [address] Care Team Providers Care Tub Mender Name Role Phone Felix Powell MD Primary Care Provider [phone] Reason for Visit * Diagnostic Imaging (Routine) - Pending Review Specialty Diagnoses / Procedures Referred By Danyell stinson Referred To Contact Procedures Breast Imaging Diagnostic Outside Reference Transcribed Order, Provider Referral ID Status Reason Start Date Expiration Date V isits Requested Visits Authorized [id number] Pending Review 09/06/2024 10/06/2025 1 1 Encounter Details Date Type Department Care Team (Late st Contact Info) Description 01/27/2019 Hospital Encounter [facility]iology [facility] [address] [place], [place] [id number] Social History Tobacco Use Types Packs/Day Years Used Date Smoking Tobacco: Former Smokeless Tobacco: Never Alcohol Use Standard Drinks/Week Comments No 0 (1 standard drink = 0.6 oz pur e alcohol) Comments Unknown Sex and Gender Information Value Date Recorded Sex Assigned at Not on file Legal Sex Female 2: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 There will be no report generated by a [facility] Radiologist. Narrative RAD_M[facility]MO[facility] - 09/06/2024 2:42 PM CDT EXAMINATION: Images For Reference Purposes Only us Provider Transcribed Order IMG MAMMO PROCEDURES Final Result [facility] documented in this encounter Visit Diagnoses Not on filedocumented in this encounter Care Teams Tub Mender Relationship Specialty Start Date End Date Felix Powell MD [address] [facility] [address] [place] [address] PCP - General 05/24/13 documented as of this encounter
--- OUTSIDE RECORDS SUMMARY | 2019-06-11 01:00 | XMS_ITS | Encounter Summary ---
Author Organization [facility] Healthcare Address [address] [place] [address] Care Team Providers Care Algorithm Developer Name Role Phone Felix Powell MD Primary Care Provider [phone] Reason for Visit * Diagnostic Imaging (Routine) - Pending Review Specialty Diagnoses / Procedures Referred By Danyell stinson Referred To Contact Procedures Breast Imaging Diagnostic Outside Reference Transcribed Order, Provider Referral ID Status Reason Start Date Expiration Date V isits Requested Visits Authorized [id number] Pending Review 09/06/2024 10/06/2025 1 1 Encounter Details Date Type Department Care Team (Late st Contact Info) Description 06/11/2019 Hospital Encounter [facility] [address] [place], [place] [phone] Social History Tobacco Use Types Packs/Day Years Used Date Smoking Tobacco: Former Smokeless Tobacco: Never Alcohol Use Standard Drinks/Week Comments No 0 (1 standard drink = 0.6 oz pur e alcohol) Comments Unknown Sex and Gender Information Value Date Recorded Sex Assigned at Not on file Legal Sex Female 2:03 AM SUPERVISOR BUILDING MAINTENANCE Gender Identity Female 09/29/2020 9:57 AM CDT Sexual Orientation Straight 09/29/2020 9: 57 AM CDT documented as of this encounter Plan of Treatment Not on file documented as of this encounter Procedures Procedure Name Priority Date/Time Associated Diagnosis Comments BREAST IMAGING MG DIAGNOSTIC OUTSIDE REFERENCE Routine 06/11/2019 12:00 AM SUPERVISOR BUILDING MAINTENANCE documented in this encounter Results * Breast Imaging Diagnostic Outside Reference (06/11/2019 12:00 AM SUPERVISOR BUILDING MAINTENANCE) Impressions [facility] - 09/06/2024 2:42 PM CDT These images are for Reference purposes only and have not been reviewed by [facility]iology. There will be no report generated by a [facility] Radiologist. Narrative RAD[facility]MO[facility] - 09/06/2024 2:42 PM CDT EXAMINATION: Images For Reference Purposes Only us Provider Transcribed Order IMG MAMMO PROCEDURES Final Result [facility] documented in this encounter Visit Diagnoses Not on filedocumented in this encounter Care Teams Algorithm Developer Relationship Specialty Start Date End Date Felxi Powell MD [address] [facility] [address] [place] [address] PCP - General 05/24/13 documented as of this encounter
--- OUTSIDE RECORDS SUMMARY | 2019-06-11 01:05 | XMS_ITS | Encounter Summary ---
Author Organization [facility] Healthcare Address [address] [place] [address] Care Team Providers Care Wheel And Axle Inspector Name Role Phone Felix Powell MD Primary Care Provider [phone] Reason for Visit * Diagnostic Imaging (Routine) - Pending Review Specialty Diagnoses / Procedures Referred By Danyell stinson Referred To Contact Procedures Breast Imaging US Outside Reference Transcribed Order, Provider Referral ID Status Reason Start Date Expiration Date V isits Requested Visits Authorized [id number] Pending Review 09/06/2024 10/06/2025 1 1 Encounter Details Date Type Department Care Team (Late st Contact Info) Description 06/11/2019 12:05 AM CHIEF BANK EXAMINER Hospital Encounter [facility] ([facility]) [address] [place] [phone] Social History Tobacco Use Types Packs/Day Years Used Date Smoking Tobacco: Former Smokeless Tobacco: Never Alcohol Use Standard Drinks/Week Comments No 0 (1 standard drink = 0.6 oz pur e alcohol) Comments Unknown Sex and Gender Information Value Date Recorded Sex Assigned at Not on file Legal Sex Female 2:03 AM CHIEF BANK EXAMINER Gender Identity Female 09/29/2020 9:57 AM CDT Sexual Orientation Straight 09/29/2020 9: 57 AM CDT documented as of this encounter Plan of Treatment Not on file documented as of this encounter Procedures Procedure Name Priority Date/Time Associated Diagnosis Comments BREAST IMAGING US OUTSIDE REFERENCE Routine 06/11/2019 12:05 AM CHIEF BANK EXAMINER documented in this encounter Results * Breast Imaging US Outside Reference (06/11/2019 12:05 AM CHIEF BANK EXAMINER) Impressions [facility] - 09/06/2024 2:42 PM CDT These images are for Reference purposes only and have not been reviewed by [facility]iology. There will be no report generated by a [facility] Radiologist. Narrative RAD_MAMMO[facility] - 09/06/2024 2:42 PM CDT EXAMINATION: Images For Reference Purposes Only us Provider Transcribed Order IMG MAMMO PROCEDURES Final Result [facility] documented in this encounter Visit Diagnoses Not on filedocumented in this encounter Care Teams Wheel And Axle Inspector Relationship Specialty Start Date End Date Felix Powell MD [address] [place] [address] [place] [address] PCP - General 05/24/13 documented as of this encounter
--- OUTSIDE RECORDS SUMMARY | 2020-02-29 | XMS_ITS | Encounter Summary ---
Author Organization [facility] Healthcare Address [address] [place] [address] Care Team Providers Care Head Grease Maker Name Role Phone Felix Powell MD Primary Care Provider [phone] Reason for Visit * Diagnostic Imaging (Routine) - Pending Review Specialty Diagnoses / Procedures Referred By Danyell stinson Referred To Contact Procedures Breast Imaging Diagnostic Outside Reference Transcribed Order, Provider Referral ID Status Reason Start Date Expiration Date V isits Requested Visits Authorized [id number] Pending Review 09/06/2024 10/06/2025 1 1 Encounter Details Date Type Department Care Team (Late st Contact Info) Description 02/29/2020 Hospital Encounter [facility] Radiology [facility] [address] [place], [place] [id number] Social History Tobacco Use Types Packs/Day Years Used Date Smoking Tobacco: Former Smokeless Tobacco: Never Alcohol Use Standard Drinks/Week Comments No 0 (1 standard drink = 0.6 oz pur e alcohol) Comments Unknown Sex and Gender Information Value Date Recorded Sex Assigned at Not on file 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
--- OUTSIDE RECORDS SUMMARY | 2020-03-01 | XMS_ITS | Encounter Summary ---
Author Organization [facility] Healthcare Address [address] [place] [address] Care Team Providers Care Tombstone Polisher Name Role Phone Felix Powell MD Primary Care Provider [phone] Reason for Visit * Diagnostic Imaging (Routine) - Pending Review Specialty Diagnoses / Procedures Referred By Danyell stinson Referred To Contact Procedures Breast Imaging US Outside Reference Transcribed Order, Provider Referral ID Status Reason Start Date Expiration Date V isits Requested Visits Authorized [id number] Pending Review 09/06/2024 10/06/2025 1 1 Encounter Details Date Type Department Care Team (Late st Contact Info) Description 03/01/2020 Hospital Encounter [facility] Radiology [facility] [address] [place], [place] [phone] Social History Tobacco Use Types Packs/Day Years Used Date Smoking Tobacco: Former Smokeless Tobacco: Never Alcohol Use Standard Drinks/Week Comments No 0 (1 standard drink = 0.6 oz pur e alcohol) Comments Unknown Sex and Gender Information Value Date Recorded Sex Assigned at Not on file Legal Sex Female 2:03 AM DIRECT SELLING COUNSELOR Gender Identity Female 09/29/2020 9:57 AM CDT [...] only and have not been reviewed by [facility] Radiology. There will be no report generated by a [facility] Radiologist. Narrative [facility] - 09/06/2024 2:42 PM CDT EXAMINATION: Images For Reference Purposes Only us Provider Transcribed Order IMG MAMMO PROCEDURES Final Result [facility] documented in this encounter Visit Diagnoses Not on filedocumented in this encounter Care Teams Tombstone Polisher Relationship Specialty Start Date End Date Felix Powell MD [address] [facility] [address] [place] [address] PCP - General 05/24/13 documented as of this encounter
[2024-12-27 10:29] LABS: Hematocrit 31.9 % (37.0-47.0); Hemoglobin 10.2 g/dL (12.0-15.0); Mean Corpuscular HGB Conc 32.0 g/dl (32-36); Mean Corpuscular Hemoglobin 29.7 pg (26-34); Mean Corpuscular Volume 92.7 fl (80-100); Platelet Count Result 217 k/mm3 (150-375); Red Blood Count 3.44 M/mm3 (4.2-5.4); White Blood Count 7.5 K/mm3 (4.5-10.0)
--- OUTSIDE RECORDS SUMMARY | 2024-12-27 10:29 | XMS_ITS | Clinical Summary ---
Author Organization [facility] [address] Address [address] [place] [address] Care Team Providers Care Tax Collection Coordinator Name Role Phone Felix Powell MD Primary Care Provider [phone] Allergies Active Allergy Reactions Criticality Noted Date Comments Iodine And Iodide Containing Products Morphine Medications rosuvastatin (CRESTOR) 40 mg tablet take 1 Tablet by oral route every day 0 0 3 Active aspirin 81 mg tabletIndication s:Myocardial Reinfarction Prevention Take 1 tablet (81 mg total) by mouth daily. 30 tablet 11 8 Active gabapentin (NEURONTIN) 100 mg capsule Take 1 capsule (100 mg total) by mouth 2 (two) times a day Active montelukast (SINGULAIR) 10 mg tablet Take 1 tablet (10 mg total) by mouth nightly Active escitalopram (LEXAPRO) 20 mg tablet Take 1 tablet (20 mg total) by mouth daily Active levothyroxine (SYNTHROID) 137 mcg tablet Take 1 tablet (137 mcg total) by mouth electric shovel operator before breakfast Active buPROPion XL (WELLBUTRIN [...] mg SL tabletIndication s:Coronary artery disease involving [place] coronary artery of [place] heart without angina pectoris Place 1 tablet (0.4 mg total) under the tongue every 5 (five) minutes as needed for chest pain May repeat dose q 5 min, up to 3 doses total 25 tablet 1 1 Active baclofen (LIORESAL) 5 mg tablet TAKE [...] extended release tabletIndication s:Coronary artery disease involving [place] coronary artery of [place] heart without angina pectoris,Essenti al hypertension Take [...] smoker 02/23/2021 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 artery of [place] heart without angina pectoris 06/19/2017 History of coronary artery stent placement 06/19 Encounters Date Type Department Care Team Description 12/13/2024 10:30 AM CDT Ancillary Procedure [facility] Cardiology at [address] [place] [address] History of atrial fibrillation 12/13/2024 10:00 AM CDT Office Visit [facility] Cardiology at [address] [place] [phone] Paulo Veloz MD Coronary artery disease involving [place] mountain coronary artery of [place] heart without angina pectoris (Primary Dx); Essential hypertension; Hyperlipidemia LDL goal <70; LBBB (left bundle branch block); Pulmonary hypertension (HCC); History of atrial fibrillation 12/13/2024 Orders Only [facility] Cardiology at [address] [place] [phone] Cheryle Bowling MD 11/19/2024 Telephone [facility] Cardiology [address] [place] [phone] Rocio Bone NP 10/18/2024 Orders Only [facility] Cardiology [address] [place] [phone] Adriana Flores MD 10/12/2024 Orders Only [facility] Cardiology [address] [place] [phone] Armani Najera MD from Last 3 Months Medical History Medical [...] on file Legal 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 Gender Identity Female 09/29/2020 9:57 AM [...] 12:48 PM CDT CARDIOLOGY DOCUMENT SCAN Routine 025 11:11 AM CDT CARDIOLOGY DOCUMENT SCAN Routine 10/11/2024 4:50 PM CDT CARDIOLOGY DOCUMENT SCAN Routine 025 11:00 AM CDT from Last 3 Months Results * ECG 12 lead (10/18/2024 12:48 PM CDT) us Historical Provider ECG ORDERABLES Edited Re sult - Final * Cardiology Document Scan (10/12/2024 11:11 AM CDT) Anatomical Region Laterality Modality Other us Ripa Diana Akins MD [facility] PRO CEDURES Final Result * Cardiology Document Scan (10/11/2024 4:50 PM CDT) Anatomical Region Laterality Modality Other us Armani Najera MD [facility] PROCEDURES F inal Result * Cardiology Document Scan (10/10/2024 11:00 AM CDT) Anatomical Region Laterality Modality Other us Adriana Flores MD [facility] PROCEDURES Final Result from Last 3 Months Insurance [facility] MEDICARE ADVANTAGE Care Teams Tax Collection Coordinator Relationship Specialty Start Date End Date Felix Powell MD [address] [facility] [address] [place] [address] PCP - General 05/24/13
[2024-12-27 10:40] LABS: Hemoglobin A1C < 4.0 % (<5.7)
[2024-12-27 10:56] LABS: Alanine Aminotransferase 15 U/L (6-35); Albumin Level 4.0 g/dL (3.5-5.1); Alkaline Phosphatase 118 U/L (38-126); Anion Gap 9 mmol/L (4-12); Aspartate Amino Transferase 27 U/L (14-36); Bilirubin,Total 1.2 mg/dL (0.2-1.3); Blood Urea Nitrogen 29 mg/dL (7-17); Calcium 9.8 mg/dL (8.4-10.2); Carbon Dioxide 24 mmol/L (22-30); Chloride 106 mmol/L (98-107); Cholesterol 163 mg/dL (0-200); Estimated Glomerular Filt Rate 24; Glucose 103 mg/dL (65-110); HDL Direct 68 mg/dL; Potassium 4.3 mmol/L (3.4-5.0); Sodium 139 mmol/L (137-145); Total Protein 7.4 g/dL (6.3-8.2); Triglycerides 127 mg/dL (<150)
[2024-12-27 11:07] LABS: Parathyroid Intact 31.1 pg/mL (14.5-75.2)
[2024-12-27 11:11] LABS: Free T4 Free Thyroxine 1.66 ng/dL (0.78-2.19)
[2024-12-27 11:31] LABS: Thyroid Stimulating Hormone < 0.015 uIU/mL (0.465-4.680)
[2024-12-27 12:24] LABS: MALB Creatinine Ratio 26.7 mg/g (0-30)
== END 2024-12-27 09:45 | disposition home or self-care (01) ==
PROVIDERS: PCP Internal Medicine; Visit Provider Internal Medicine Nephrology
DX: N17.9 Acute kidney failure, unspecified (principal); I10 Essential (primary) hypertension; E11.9 Type 2 diabetes mellitus without complications; E11.69 Type 2 diabetes mellitus with other specified complication; E03.9 Hypothyroidism, unspecified; E78.2 Mixed hyperlipidemia; E55.9 Vitamin D deficiency, unspecified
CPT/HCPCS: 36415; 80053; 80061; 82043; 82306; 82533; 83036; 83605; 83970; 84100; 84439; 84443; 85027

== ENCOUNTER 2025-01-31 13:50 | Outpatient (CLI) | payer MEDICARE, SELFPAY ==
--- OUTSIDE RECORDS SUMMARY | 2019-01-18 | XMS_ITS | Encounter Summary ---
Author Organization [facility] Healthcare Address [address] [place] [address] Care Team Providers Care Spar Machine Operator Helper Name Role Phone Felix Powell MD Primary Care Provider [phone] Reason for Visit * Diagnostic Imaging (Routine) - Pending Review Specialty Diagnoses / Procedures Referred By Danyell stinson Referred To Contact Procedures Breast Imaging Screening Outside Reference Transcribed Order, Provider Referral ID Status Reason Start Date Expiration Date V isits Requested Visits Authorized [id number] Pending Review 09/06/2024 10/06/2025 1 1 Encounter Details Date Type Department Care Team (Late st Contact Info) Description 01/18/2019 Hospital Encounter [facility] Radiology [facility] [address] [place], [place] [phone] Social History Tobacco Use Types Packs/Day Years Used Date Smoking Tobacco: Former Smokeless Tobacco: Never Alcohol Use Standard Drinks/Week Comments No 0 (1 standard drink = 0.6 oz pur e alcohol) Comments Unknown Sex and Gender Information Value Date Recorded Sex Assigned at Not on file Legal Sex Female 2:03 AM COMIC ARTIST Gender Identity Female 09/29/2020 9:57 AM CDT [...] and have not been reviewed by [facility] Radiology. There will be no report generated by a [facility] Radiologist. Narrative RAD[facility] - 09/06/2024 2:42 PM CDT EXAMINATION: Images For Reference Purposes Only us Provider Transcribed Order IMG MAMMO PROCEDURES Final Result [facility] documented in this encounter Visit Diagnoses Not on filedocumented in this encounter Care Teams Spar Machine Operator Helper Relationship Specialty Start Date End Date Felix Powell MD [address] [place] [address] [place] [address] PCP - General 05/24/13 documented as of this encounter
--- OUTSIDE RECORDS SUMMARY | 2019-01-27 | XMS_ITS | Encounter Summary ---
Author Organization [facility] Healthcare Address [address] [place] [address] Care Team Providers Care Instruction Dean Name Role Phone Felix Powell MD Primary Care Provider [phone] Reason for Visit * Diagnostic Imaging (Routine) - Pending Review Specialty Diagnoses / Procedures Referred By Danyell stinson Referred To Contact Procedures Breast Imaging Diagnostic Outside Reference Transcribed Order, Provider Referral ID Status Reason Start Date Expiration Date V isits Requested Visits Authorized [id number] Pending Review 09/06/2024 10/06/2025 1 1 Encounter Details Date Type Department Care Team (Late st Contact Info) Description 01/27/2019 Hospital Encounter [facility] Radiology [facility] [address] [place], [place] [phone] Social History Tobacco Use Types Packs/Day Years Used Date Smoking Tobacco: Former Smokeless Tobacco: Never Alcohol Use Standard Drinks/Week Comments No 0 (1 standard drink = 0.6 oz pur e alcohol) Comments Unknown Sex and Gender Information Value Date Recorded Sex Assigned at Not on file Legal Sex Female 2:03 AM REPAIRER AND CHECKER Gender Identity Female 09/29/2020 9:57 AM CDT [...] and have not been reviewed by [facility] Radiology. There will be no report generated by a [facility] Radiologist. Narrative RAD_MAMMO[facility] - 09/06/2024 2:42 PM CDT EXAMINATION: Images For Reference Purposes Only us Provider Transcribed Order IMG MAMMO PROCEDURES Final Result [facility] documented in this encounter Visit Diagnoses Not on filedocumented in this encounter Care Teams Instruction Dean Relationship Specialty Start Date End Date Felix Powell MD [address] [facility] [address] [place] [address] PCP - General 05/24/13 documented as of this encounter
--- OUTSIDE RECORDS SUMMARY | 2019-06-11 01:00 | XMS_ITS | Encounter Summary ---
Author Organization [facility] Healthcare Address [address] [place] [address] Care Team Providers Care Sane Nurse Name Role Phone Felix Powell MD Primary Care Provider Reason for Visit * Diagnostic Imaging (Routine) - Pending Review Specialty Diagnoses / Procedures Referred By Danyell stinson Referred To Contact Procedures Breast Imaging Diagnostic Outside Reference Transcribed Order, Provider Referral ID Status Reason Start Date Expiration Date V isits Requested Visits Authorized [id number] Pending Review 09/06/2024 10/06/2025 1 1 Encounter Details Date Type Department Care Team (Late st Contact Info) Description 06/11/2019 Hospital Encounter [facility] [address] [place], [place] [phone] Social History Tobacco Use Types Packs/Day Years Used Date Smoking Tobacco: Former Smokeless Tobacco: Never Alcohol Use Standard Drinks/Week Comments No 0 (1 standard drink = 0.6 oz pur e alcohol) Comments Unknown Sex and Gender Information Value Date Recorded Sex Assigned at Not on file Legal Sex Female 2:03 AM HOUSE VISITOR Gender Identity Female 09/29/2020 9:57 AM CDT Sexual Orientation Straight 09/29/2020 9: 57 AM CDT documented as of this encounter Plan of Treatment Not on file documented as of this encounter Procedures Procedure Name Priority Date/Time Associated Diagnosis Comments BREAST IMAGING MG DIAGNOSTIC OUTSIDE REFERENCE Routine 06/11/2019 12:00 AM HOUSE VISITOR documented in this encounter Results * Breast Imaging Diagnostic Outside Reference (06/11/2019 12:00 AM HOUSE VISITOR) Impressions RAD[facility]MO[facility] - 09/06/2024 2:42 PM CDT These images are for Reference purposes only and have not been reviewed by [facility]iology. There will be no report generated by a [facility] Radiologist. Narrative RAD_MAMMO[facility] - 09/06/2024 2:42 PM CDT EXAMINATION: Images For Reference Purposes Only us Provider Transcribed Order IMG MAMMO PROCEDURES Final Result [facility] documented in this encounter Visit Diagnoses Not on filedocumented in this encounter Care Teams Sane Nurse Relationship Specialty Start Date End Date Felix Powell MD [address] [facility] [address] [place] [address] PCP - General 05/24/13 documented as of this encounter
--- OUTSIDE RECORDS SUMMARY | 2019-06-11 01:05 | XMS_ITS | Encounter Summary ---
Author Organization [facility] Healthcare Address [address] [place] [address] Care Team Providers Care Deck Officer Name Role Phone Felix Powell MD Primary Care Provider [phone] Reason for Visit * Diagnostic Imaging (Routine) - Pending Review Specialty Diagnoses / Procedures Referred By Danyell stinson Referred To Contact Procedures Breast Imaging US Outside Reference Transcribed Order, Provider Referral ID Status Reason Start Date Expiration Date V isits Requested Visits Authorized [id number] Pending Review 09/06/2024 10/06/2025 1 1 Encounter Details Date Type Department Care Team (Late st Contact Info) Description 06/11/2019 12:05 AM JEWELRY SALES Hospital Encounter [facility] ([facility]) [address] [place] [phone] Social History Tobacco Use Types Packs/Day Years Used Date Smoking Tobacco: Former Smokeless Tobacco: Never Alcohol Use Standard Drinks/Week Comments No 0 (1 standard drink = 0.6 oz pur e alcohol) Comments Unknown Sex and Gender Information Value Date Recorded Sex Assigned at Not on file Legal Sex Female 2:03 AM JEWELRY SALES Gender Identity Female 09/29/2020 9:57 AM CDT Sexual Orientation Straight 09/29/2020 9: 57 AM CDT documented as of this encounter Plan of Treatment Not on file documented as of this encounter Procedures Procedure Name Priority Date/Time Associated Diagnosis Comments BREAST IMAGING US OUTSIDE REFERENCE Routine 06/11/2019 12:05 AM JEWELRY SALES documented in this encounter Results * Breast Imaging US Outside Reference (06/11/2019 12:05 AM JEWELRY SALES) Impressions [facility]MO[facility] - 09/06/2024 2:42 PM CDT These images are for Reference purposes only and have not been reviewed by [facility]. There will be no report generated by a [facility] Radiologist. Narrative RAD_MAMMO[facility] - 09/06/2024 2:42 PM CDT EXAMINATION: Images For Reference Purposes Only us Provider Transcribed Order IMG MAMMO PROCEDURES Final Result [facility] documented in this encounter Visit Diagnoses Not on filedocumented in this encounter Care Teams Deck Officer Relationship Specialty Start Date End Date Felix Powell MD [address] [place] [address] [place] [address] PCP - General 05/24/13 documented as of this encounter
--- OUTSIDE RECORDS SUMMARY | 2020-02-29 | XMS_ITS | Encounter Summary ---
Author Organization [facility] Healthcare Address [address] [place] [address] Care Team Providers Care Engine Specialist Name Role Phone Felix Powell MD Primary Care Provider [phone] Reason for Visit * Diagnostic Imaging (Routine) - Pending Review Specialty Diagnoses / Procedures Referred By Danyell stinson Referred To Contact Procedures Breast Imaging Diagnostic Outside Reference Transcribed Order, Provider Referral ID Status Reason Start Date Expiration Date V isits Requested Visits Authorized [id number] Pending Review 09/06/2024 10/06/2025 1 1 Encounter Details Date Type Department Care Team (Late st Contact Info) Description 02/29/[address] 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 There will be no report generated by a [facility] Radiologist. Narrative [facility] - 09/06/2024 2:42 PM CDT EXAMINATION: Images For Reference Purposes Only us Provider Transcribed Order IMG MAMMO PROCEDURES Final Result [facility] documented in this encounter Visit Diagnoses Not on filedocumented in this encounter Care Teams Engine Specialist Relationship Specialty Start Date End Date Felix Powell MD [address] [facility] [address] [place] [address] PCP - General 05/24/13 documented as of this encounter
--- OUTSIDE RECORDS SUMMARY | 2020-03-01 | XMS_ITS | Encounter Summary ---
Author Organization [facility] Healthcare Address [address] [place] [address] Care Team Providers Care Winder Operator Name Role Phone Felix Powell MD Primary Care Provider [phone] Reason for Visit * Diagnostic Imaging (Routine) - Pending Review Specialty Diagnoses / Procedures Referred By Danyell stinson Referred To Contact Procedures Breast Imaging US Outside Reference Transcribed Order, Provider Referral ID Status Reason Start Date Expiration Date V isits Requested Visits Authorized [id number] Pending Review 09/06/2024 10/06/2025 1 1 Encounter Details Date Type Department Care Team (Late st Contact Info) Description 03/01/2020 Hospital Encounter [facility]iology [facility] [address] [place], [place] [phone] Social History Tobacco Use Types Packs/Day Years Used Date Smoking Tobacco: Former Smokeless Tobacco: Never Alcohol Use Standard Drinks/Week Comments No 0 (1 standard drink = 0.6 oz pur e alcohol) Comments Unknown Sex and Gender Information Value Date Recorded Sex Assigned at Not on file Legal Sex Female 2:03 AM BOX ORDER PERSON Gender Identity Female 09/29/2020 9:57 AM CDT [...] only and have not been reviewed by [facility] Radiology. There will be no report generated by a [facility] Radiologist. Narrative [facility] - 09/06/2024 2:42 PM CDT EXAMINATION: Images For Reference Purposes Only us Provider Transcribed Order IMG MAMMO PROCEDURES Final Result [facility] documented in this encounter Visit Diagnoses Not on filedocumented in this encounter Care Teams Winder Operator Relationship Specialty Start Date End Date Felix Powell MD [address] [facility] [address] [place] [address] PCP - General 05/24/13 documented as of this encounter
--- OUTSIDE RECORDS SUMMARY | 2025-01-31 14:19 | XMS_ITS | Clinical Summary ---
Author Organization [facility] [address] Address [address] [place] [address] Care Team Providers Care Table Hand Name Role Phone Felix Powell MD Primary Care Provider [phone] Allergies Active Allergy Reactions Criticality Noted Date [...] 1 tablet (137 mcg total) by mouth associate material handler before breakfast Active buPROPion XL (WELLBUTRIN XL) [...] mg SL tabletIndications :Coronary artery disease involving [place] coronary artery of [place] heart without angina pectoris Place 1 tablet [...] metoprolol XL (TOPROL-XL) 25 mg extended release tabletIndications :Coronary artery disease involving [place] coronary artery of [place] heart without angina pectoris,Essentia l hypertension Take 1 tablet (25 mg total) by mouth daily 90 tablet 3 5 12/14/19 26 Active Active Problems Problem Noted Date Diagnosed Date History of atrial fibrillation 12/13/2024 Pulmonary hypertension 09/03/2024 Chronic obstructive pulmonary disease 02/23/2021 LBBB (left bundle branch block) 02/23/2021 PMR (polymyalgia rheumatica) 02/23/2021 Hyperlipidemia LDL goal <70 02/23/2021 Essential hypertension 02/23/2021 Former smoker 02/23/2021 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lving [place] coronary artery of [place] heart without angina pectoris 06/19/2017 History of coronary artery stent placement 06/19 Encounters Date Type Department Care Team Description 12/29/2024 Telephone [facility] Medical [facility] Cardiology [address] [address] [address] [place] [address] Paulo Veloz MD 12/13/2024 10:30 AM CDT Ancillary Procedure [facility] Medical [facility] Cardiology at [address] [place] [phone] History of atrial fibrillation 12/13/2024 10:00 AM CDT Office Visit [facility] Medical [facility] Cardiology at [address] [place] [phone] Paulo Veloz MD Coronary artery disease involving [place] coronary artery of [place] heart without angina pectoris (Primary Dx); Essential hypertension; Hyperlipidemia LDL goal <70; LBBB (left bundle branch block); Pulmonary hypertension (HCC); History of atrial fibrillation 12/13/2024 Orders Only [facility] Medical [facility] Cardiology at [address] [place] [phone] ProviderCheryle MD 11/19/2024 Telephone [facility] Cardiology [address] [facility] [address] [place] [address] Rocio Bone NP from Last 3 Months Medical History Medical [...] on file Legal Sex Female 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 Veloz Date of interpretation: 12/30/24 Type of monitor : Cardiac event monitor Date of the study/Enrollment period: 12/13/2024 through 12/27/2024 Indication: Personal history of diseases of circulatory system Quality of the study: Good Interpretation: Total of 5 days 20 hours and 9 minutes of diagnostic time Underlying sinus rhythm heart rate variability between 50 and 126 beats per minute with an average heart rate of 70 beats per minute. Low-frequency supraventricular ectopy totaling 2129 beats which is less 1% ectopic burden. Low frequency ventricular ectopy totaling 174 beats which is also less than 1% No complex arrhythmia, heart block or pauses. One patient triggered event which was the baseline event correlated sinus rhythm intraventricular conduction delay. Heart rate 61 beats per minute Conclusions: Underlying sinus rhythm average heart rate of 70 beats per minute. Low-frequency ventricular and supraventricular ectopy as detailed above No complex arrhythmia, heart block or pauses Voice recognition software was used to complete this document, therefore, adjuster leader variances may occur. Paulo Veloz MD, [facility] 12/30/24 Procedure Note Paulo Veloz MD - 12/30/2024 AMBULATORY INCOMING FREIGHT CLERK REPORT Patient Name: Allyson Tello Date of : 1945 Requesting Physician: Dr. Veloz Date of interpretation: 12/30/24 Type of monitor : Cardiac event monitor Date of the study/Enrollment period: 12/13/2024 through 12/27/2024 Indication: Personal history of diseases of circulatory system Quality of the study: Good Interpretation: Total of 5 days 20 hours and 9 minutes of diagnostic time Underlying sinus rhythm heart rate variability between 50 and 126 beatsper minute with an average heart rate of 70 beats per minute. Low-frequency supraventricular ectopy totaling 2129 beats which is less 1%ectopic burden. Low frequency ventricular ectopy totaling 174 beats which is also lessthan 1% No complex arrhythmia, heart block or pauses. One patient triggered event which was the baseline event correlated sinusrhythm intraventricular conduction delay. Heart rate 61 beats perminute Conclusions: Underlying sinus rhythm average heart rate of 70 beats per minute. Low-frequency ventricular and supraventricular ectopy as detailed above No complex arrhythmia, heart block or pauses Voice recognition software was used to complete this document, therefore,adjuster leader variances may occur. Paulo Veloz MD, [facility] 12/30/24 Paulo Veloz MD [facility] Final Result from Last 3 Months Insurance [facility] UHC MEDICARE ADVANTAGE UHC MEDICARE ADVANTAGE Care Teams Table Hand Relationship Specialty Start Date End Date Felix Powell MD [address] [facility] [address] [place] [id number] PCP - General 1/20/14
--- OUTSIDE RECORDS SUMMARY | 2025-01-31 14:19 | XMS_ITS | Encounter Summary ---
Author Organization [facility] Healthcare Address [address] [place] [address] Care Team Providers Care Loan Processing Supervisor Name Role Phone Felix Powell MD Primary Care Provider [phone] Encounter Details Date Type Department Care Team (Late st Contact Info) Description 01/21/2023 Orders Only [facility] Health Information Management [address] [place] [id number] Scanning, Provider Social History Tobacco Use Types Packs/Day Years Used Date Smoking Tobacco: Former Smokeless Tobacco: Never Alcohol Use Standard Drinks/Week Comments No 0 (1 standard drink = 0.6 oz pur e alcohol) Comments Unknown Sex and Gender Information Value Date Recorded Sex Assigned at Not on file 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 Gender Identity Female 09/29/2020 9:57 AM CDT Sexual Orientation Straight 09/29/2020 9: 57 AM CDT documented as of this encounter Plan of Treatment Not on file documented as of this encounter Procedures Procedure Name Priority Date/Time Associated Diagnosis Comments SCAN - LABS 01/21/2023 documented in this encounter Results * SCAN - LABS (01/21/2023) us Provider Scanning Final Result documented in this encounter Visit Diagnoses Not on filedocumented in this encounter Care Teams Loan Processing Supervisor Relationship Specialty Start Date End Date Felix Powell MD [address] [place] [address] [place] [address] PCP - General 05/24/13 documented as of this encounter
--- OUTSIDE RECORDS SUMMARY | 2025-01-31 14:19 | XMS_ITS | Encounter Summary ---
Author Organization [facility] Healthcare Address [address] [place] [address] Care Team Providers Care Wrapper Operator Name Role Phone Felix Powell MD Primary Care Provider [phone] Encounter Details Date Type Department Care Team (Late st Contact Info) Description 12/08/2022 Orders Only [facility] [place] Information Management [address] [place] [id number] Scanning, Provider Social History Tobacco Use Types Packs/Day Years Used Date Smoking Tobacco: Former Smokeless Tobacco: Never Alcohol Use Standard Drinks/Week Comments No 0 (1 standard drink = 0.6 oz pur e alcohol) Comments Unknown Sex and Gender Information Value Date Recorded Sex Assigned at Not on file 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 Gender Identity Female 09/29/2020 9:57 AM CDT Sexual Orientation Straight 09/29/2020 9: 57 AM CDT documented as of this encounter Plan of Treatment Not on file documented as of this encounter Procedures Procedure Name Priority Date/Time Associated Diagnosis Comments SCAN - LABS 12/08/2022 SCAN - RADIOLOGY/IMAGING 12/07/2022 documented in this encounter Results * SCAN - LABS (12/08/2022) us Provider Scanning Final Result * SCAN - RADIOLOGY/IMAGING (12/07/2022) Anatomical Region Laterality Modality Other us Provider Scanning Edited Result - Final documented in this encounter Visit Diagnoses Not on filedocumented in this encounter Care Teams Wrapper Operator Relationship Specialty Start Date End Date Felix Powell MD [address] [facility] [address] [facility] [address] [place] [address] PCP - General 05/24/13 documented as of this encounter
--- OUTSIDE RECORDS SUMMARY | 2025-01-31 14:19 | XMS_ITS ---
Author Organization [facility] ([facility] interaction) Address [facility] [address] [address] Care Team Providers Care Selling Manager Name Role Phone Unavailable Unavailable Unavailable Allergies, Adverse Reactions, Alerts Allergy Name Allergy Type Status Severity Reaction(s) Onset Date Inactive Date Treating Clinician Comments Morphine Allergy Active Moderate Allergy 2024-10 05:00:0 0 Iodinated Contrast Media Allergy Active Moderate Allergy 2024-10 05:00:0 0 Codeine Allergy Active Moderate Allergy 2024-10 05:00:0 0 Medications Ordered Medication Name Filled Medication Name Start Date Stop Date Current Medication? Ordering Clinician Indication Dosage Frequency Signature (SIG) Comments Components Mircera 11-28 15:58: 12 Yes [id number] Number of Repeats Allowed: Frequency: JAMISON dosing, every two weeks Venofer 11-12 15:24: 30 Yes [id number] Number of Repeats Allowed: 10Frequenc y: Every Dialysis TreatmentD osesOrdere d: Loading Dose 100 Milligram Route: Intravenou s ONS [facility] 11-10 05:00: 00 Yes [id number] Number of Repeats Allowed: Frequency: Every Dialysis Treatment heparin sodium, porcine 10-26 17:10: 47 Yes [id number] Number of Repeats Allowed: Frequency: Every Dialysis TreatmentD osesOrdere d: Post CVC Instillati on 2200 Units 1:1000 Units/mL[place]: Intracathe terDosesOr dered: Post CVC Instillati on 2300 Units 1:1000 Units/mLRo [place]: Intracathe ter heparin sodium, porcine 10-26 15:06: 01 Yes [id number] Number of Repeats Allowed: Frequency: Every Dialysis TreatmentD osesOrdere d: Hourly Dose 600 Units/Hr 1:1000 Units/mLRo [place]: Intravenou s heparin sodium, porcine 10-26 15:06: 01 Yes [id number] Number of Repeats Allowed: Frequency: Every Dialysis TreatmentD osesOrdere d: Loading Dose 1000 Units 1:1000 Units/mLRo [place]: Intravenou s Problems This patient has no known problems. Procedures Procedure Date / Time Performed Performing Clinician Rain harrison Details Central Venous Catheter (CVC) 2024-10-11 05:00:00 Access Site Chest (Left) Access Use Start Date 2024-10-26 00:00:0 0 DIALYSIS TREATMENT INFORMATION Conventional Hemodialysis Date Type Treatment Start Date Treatment End Date Pre-Treatment Vitals Post-Treatment Vitals Weight Gain BFR DFR Actual UF Dialysis Access Decus t 2024 In-Ce nter Hemod ialys is Treat ment 400 mL/min 800 mL/min Decus t 2024 In-Ce nter Hemod ialys is Treat ment 2024-12-04 T14:33:23. 000Z 2024-12-04 T18:06:43. 000Z BP Sitting (Pre-Dialysis) 131/71 mmHg BP Sitting (Post-D ialysis ) 123/ 62 mmHg Sitting Heart Rate Pre-Dialysis 82 BPM Sitting H eart Rate Post-Dialysis 90 BPM Temperature Pre-Dialysis 97 degF Temperature Post -Dialysis 97.3 degF December 02, 2024 In-Center Hemodialysis Treatment [id number]:02:13.000Z [id number]:31:48.000Z BP Sitting (Pre-Dialysis) 114/71 mmHg BP Sitting (Post-Dialysis) 111/61 mmHg Concurrent Access: falseCentral Venous Catheter (CVC) Chest (Left) Arterial Sitting Heart Rate Pre-Dialysis 97 BPM Sitting H eart Rate Post-Dialysis 76 BPM Temperature Pre-Dialysis 97.4 degF Temperature Post -Dialysis 97.3 degF November 30, 2024 In-Center Hemodialysis Treatment [id number]:37:44.000Z [id number]:07:44.000Z BP Sitting (Pre-Dialysis) 130/68 mmHg BP Sitting (Post-Dialysis) 138/66 mmHg Concurrent Access: falseCentral Venous Catheter (CVC) Chest (Left) Arterial Sitting Heart Rate Pre-Dialysis 87 BPM Sitting H eart Rate Post-Dialysis 74 BPM Temperature Pre-Dialysis 97.7 degF November 25, 2024 In-Center Hemodialysis Treatment [id number]:10:00.000Z [id number]:22:15.000Z BP Sitting (Pre-Dialysis) 101/54 mmHg BP Sitting (Post-Dialysis) 105/57 mmHg Concurrent Access: falseCentral Venous Catheter (CVC) Chest (Left) Arterial Sitting Heart Rate Pre-Dialysis 70 BPM Sitting H eart Rate Post-Dialysis 77 BPM Temperature Pre-Dialysis 97.8 degF Temperature Post -Dialysis 98.6 degF November 23, 2024 In-Center Hemodialysis Treatment [id number]:39:22.000Z [id number]:13:32.000Z BP Sitting (Pre-Dialysis) 95/54 mmHg BP Sitting (Post-Dialysis) 11/55 mmHg Concurrent Access: falseCentral Venous Catheter (CVC) Chest (Left) Arterial Sitting Heart Rate Pre-Dialysis 87 BPM Sitting H eart Rate Post-Dialysis 78 BPM Temperature Pre-Dialysis 98.2 degF Temperature Post -Dialysis 97.3 degF November 20, 2024 In-Center Hemodialysis Treatment [id number]:43:40.000Z [id number]:12:50.000Z BP Sitting (Pre-Dialysis) 116/58 mmHg BP Sitting (Post-Dialysis) 106/50 mmHg Concurrent Access: falseCentral Venous Catheter (CVC) Chest (Left) Arterial Sitting Heart Rate Pre-Dialysis 73 BPM Sitting H eart Rate Post-Dialysis 59 BPM Temperature Pre-Dialysis 97.6 degF Temperature Post -Dialysis 97.6 degF November 18, 2024 In-Center Hemodialysis Treatment [id number]:46:14.000Z [id number]:25:24.000Z BP Sitting (Pre-Dialysis) 98/53 mmHg BP Sitting (Post-Dialysis) 122/69 mmHg Concurrent Access: falseCentral Venous Catheter (CVC) Chest (Left) Arterial Sitting Heart Rate Pre-Dialysis 93 BPM Sitting H eart Rate Post-Dialysis 69 BPM Temperature Pre-Dialysis 98.1 degF Temperature Post -Dialysis 97.6 degF November 16, 2024 In-Center Hemodialysis Treatment [id number]:33:45.000Z [id number]:34:10.000Z BP Sitting (Pre-Dialysis) 100/52 mmHg BP Sitting (Post-Dialysis) 125/72 mmHg Concurrent Access: falseCentral Venous Catheter (CVC) Chest (Left) Arterial Sitting Heart Rate Pre-Dialysis 74 BPM Sitting H eart Rate Post-Dialysis 82 BPM Temperature Pre-Dialysis 98 degF Temperature Post -Dialysis 97.6 degF November 13, 2024 In-Center Hemodialysis Treatment [id number]:39:05.000Z [id number]:09:30.000Z BP Sitting (Pre-Dialysis) 117/56 mmHg BP Sitting (Post-Dialysis) 127/70 mmHg Concurrent Access: falseCentral Venous Catheter (CVC) Chest (Left) Arterial Sitting Heart Rate Pre-Dialysis 72 BPM Sitting H eart Rate Post-Dialysis 68 BPM Temperature Pre-Dialysis 98.1 degF Temperature Post -Dialysis 97.5 degF November 11, 2024 In-Center Hemodialysis Treatment [id number]:32:28.000Z [id number]:09:33.000Z BP Sitting (Pre-Dialysis) 157/72 mmHg BP Sitting (Post-Dialysis) 129/55 mmHg Concurrent Access: falseCentral Venous Catheter (CVC) Chest (Left) Arterial Sitting Heart Rate Pre-Dialysis 83 BPM Sitting H eart Rate Post-Dialysis 64 BPM Temperature Pre-Dialysis 97.5 degF Temperature Post -Dialysis 97.5 degF November 10, 2024 In-Center Hemodialysis Treatment [id number]:14:44.000Z [id number]:45:34.000Z BP Sitting (Pre-Dialysis) 132/60 mmHg BP Sitting (Post-Dialysis) 111/55 mmHg Concurrent Access: falseCentral Venous Catheter (CVC) Chest (Left) Arterial Sitting Heart Rate Pre-Dialysis 67 BPM Sitting H eart Rate Post-Dialysis 63 BPM Temperature Pre-Dialysis 97.3 degF Temperature Post -Dialysis 97.3 degF November 06, 2024 In-Center Hemodialysis Treatment [id number]:20:00.000Z [id number]:06:28.000Z BP Sitting (Pre-Dialysis) 135/61 mmHg BP Sitting (Post-Dialysis) 158/71 mmHg Concurrent Access: falseCentral Venous Catheter (CVC) Chest (Left) Arterial Sitting Heart Rate Pre-Dialysis 67 BPM Sitting H eart Rate Post-Dialysis 65 BPM Temperature Pre-Dialysis 97.9 degF Temperature Post -Dialysis 98 degF 2024 In-Center Hemodialysis Treatment [id number]:54:55.000Z [id number]:54:05.000Z BP Sitting (Pre-Dialysis) 135/64 mmHg BP Sitting (Post-Dialysis) 172/69 mmHg Concurrent Access: falseCentral Venous Catheter (CVC) Chest (Left) Arterial Sitting Heart Rate Pre-Dialysis 62 BPM Sitting H eart Rate Post-Dialysis 63 BPM Temperature Pre-Dialysis 98.3 degF Temperature Post -Dialysis 98 degF November 02, 2024 In-Center Hemodialysis Treatment [id number]:06:23.000Z [id number]:36:23.000Z BP Sitting (Pre-Dialysis) 115/56 mmHg BP Sitting (Post-Dialysis) 156/75 mmHg Concurrent Access: falseCentral Venous Catheter (CVC) Chest (Left) Arterial Sitting Heart Rate Pre-Dialysis 68 BPM Sitting H eart Rate Post-Dialysis 69 BPM Temperature Pre-Dialysis 97.1 degF Temperature Post -Dialysis 98.1 degF October 30, 2024 In-Center Hemodialysis Treatment [id number]:49:16.000Z [id number]:57:11.000Z BP Sitting (Pre-Dialysis) 128/63 mmHg BP Sitting (Post-Dialysis) 144/48 mmHg Concurrent Access: falseCentral Venous Catheter (CVC) Chest (Left) Arterial Sitting Heart Rate Pre-Dialysis 67 BPM Sitting H eart Rate Post-Dialysis 67 BPM Temperature Pre-Dialysis 96.9 degF Temperature Post -Dialysis 97.6 degF October 28, 2024 In-Center Hemodialysis Treatment [id number]:35:23.000Z [id number]:01:38.000Z BP Sitting (Pre-Dialysis) 108/56 mmHg BP Sitting (Post-Dialysis) 140/63 mmHg Concurrent Access: falseCentral Venous Catheter (CVC) Chest (Left) Arterial Sitting Heart Rate Pre-Dialysis 63 BPM Sitting H eart Rate Post-Dialysis 70 BPM Temperature Pre-Dialysis 98.5 degF Temperature Post -Dialysis 98.1 degF October 26, 2024 In-Center Hemodialysis Treatment [id number]:48:40.000Z [id number]:19:30.000Z BP Sitting (Pre-Dialysis) 107/56 mmHg BP Sitting (Post-Dialysis) 126/55 mmHg Concurrent Access: falseCentral Venous Catheter (CVC) Chest (Left) Arterial Sitting Heart Rate Pre-Dialysis 60 BPM Sitting H eart Rate Post-Dialysis 63 BPM Temperature Pre-Dialysis 98.1 degF Temperature Post -Dialysis 98 degF DIALYSIS ORDER Dialysis Procedure Orders Type of Dialysis Procedure Order Order Date/Time Observations In-Center Hemodialysis Treatment November Target Weight 70 kg Dialysate Flow Rate 800 mL/min Blood Flow Rate 400 mL/min Treatment Time 210 min(total) Max UF Rate 13 mL/kg/hr Base Sodium Dialysate Base Sodium 138 mE q/L dialysate_temp 37 C BiCarb Dialysate BiCarbonate 38 meq/L Access Concurrent No Arterial Access Central Venous [facility] ter (CVC) (Chest (Left)) Venous Access Central Venous [facility] (CVC) (Chest (Left)) Dialyzer Nipro Elisio 15H 126 4 [email or web address] Dialysate Bath Potassium Potassium 3 mEq /L Dialysate Bath Calcium Calcium 2.5 mEq/L Results Adequacy Description Draw Date Result/Unit Status Ref Range Result Comments DIALYZER FLOW-QD 2024-12-11 00:53:10 800 mL/min F Dialyzer ИРИНА 2024-12-11 00:53:10 1264 Calc F WEIGHT - PRE DAY 1 2024-12-11 00:53:10 F Unable to calculate: Post BUN lab result is unknown WEIGHT (KG) 2024-12-11 00:53:10 70 kg F Residual kt/v 2024-12-11 00:53:10 F Unable to calculate: Post BUN lab result is unknown Total Kt/V 2024-12-11 00:53:10 F Unable to calculate: Post BUN lab result is unknown AMPUTATE FACTOR 2024-12-11 00:53:10 0 F nPCR 2024-12-11 00:53:10 F Unable to calculate: Post BUN lab result is unknown TBW ([place]) 2024-12-11 00:53:10 F Unable to calculate: Post BUN lab result is unknown stdKt/V (DIAL) 2024-12-11 00:53:10 F Unable to calculate: Post BUN lab result is unknown Std Renal KT/V 2024-12-11 00:53:10 F Unable to calculate: Post BUN lab result is unknown stdKT/V Total 2024-12-11 00:53:10 F Unable to calculate: Post BUN lab result is unknown CURRENT KRU 2024-12-11 00:53:10 F Unable to calculate: Post BUN lab result is unknown URR% 2024-12-11 00:53:10 F Unable to calculate: Post BUN lab result is unknown,Unable to Calculate. LENGTH OF DIALYSIS 2024-12-11 00:53:10 F Unable to calculate: Post BUN lab result is unknown BSA LANA 2024-12-11 00:53:10 F Unable to calculate: Post BUN lab result is unknown PATIENT AGE 2024-12-11 00:53:10 79 Years F WEIGHT - POST DAY 1 2024-12-11 00:53:10 F Unable to calculate: Post BUN lab result is unknown HEIGHT IN INCHES 2024-12-11 00:53:10 67 Inches F PRESCRIBED DAYS/WEEK 2024-12-11 00:53:10 F Unable to calculate: Post BUN lab result is unknown VT (KT/V TX VOL) 2024-12-11 00:53:10 F Unable to calculate: Post BUN lab result is unknown VM (KT/V MEAN VOL) 2024-12-11 00:53:10 F Unable to calculate: Post BUN lab result is unknown KT/V PRESCRIBED 2024-12-11 00:53:10 F Unable to calculate: Post BUN lab result is unknown spKt/V 2024-12-11 00:53:10 F Unable to calculate: Post BUN lab result is unknown eKt/V 2024-12-11 00:53:10 F Unable to calculate: Post BUN lab result is unknown TOTAL HOURS/WEEK DIALYSIS 2024-12-11 00:53:10 6 hrs F BLOOD FLOW-QWB 2024-12-11 00:53:10 400 F Std Renal KT/V 2024-12-11 00:53:10 F Unable to calculate: Post BUN lab result is unknown Total Kt/V 2024-12-11 00:53:10 F Unable to calculate: Post BUN lab result is unknown stdKT/V Total 2024-12-11 00:53:10 F Unable to calculate: Post BUN lab result is unknown Dialyzer ИРИНА 2024-12-11 00:53:10 1264 Calc F nPCR 2024-12-11 00:53:10 F Unable to calculate: Post BUN lab result is unknown WEIGHT (KG) 2024-12-11 00:53:10 70 kg F stdKt/V (DIAL) 2024-12-11 00:53:10 F Unable to calculate: Post BUN lab result is unknown TBW ([place]) 2024-12-11 00:53:10 F Unable to calculate: Post BUN lab result is unknown Residual kt/v 2024-12-11 00:53:10 F Unable to calculate: Post BUN lab result is unknown AMPUTATE FACTOR 2024-12-11 00:53:10 0 F DIALYZER FLOW-QD 2024-12-11 00:53:10 800 mL/min F WEIGHT - PRE DAY 1 2024-12-11 00:53:10 F Unable to calculate: Post BUN lab result is unknown CURRENT KRU 2024-12-11 00:53:10 F Unable to calculate: Post BUN lab result is unknown spKt/V 2024-12-11 00:53:10 F Unable to calculate: Post BUN lab result is unknown URR% 2024-12-11 00:53:10 F Unable to calculate: Post BUN lab result is unknown,Unable to Calculate. TOTAL HOURS/WEEK DIALYSIS 2024-12-11 00:53:10 6 hrs F WEIGHT - POST DAY 1 2024-12-11 00:53:10 F Unable to calculate: Post BUN lab result is unknown PATIENT AGE 2024-12-11 00:53:10 79 Years F KT/V PRESCRIBED 2024-12-11 00:53:10 F Unable to calculate: Post BUN lab result is unknown eKt/V 2024-12-11 00:53:10 F Unable to calculate: Post BUN lab result is unknown LENGTH OF DIALYSIS 2024-12-11 00:53:10 F Unable to calculate: Post BUN lab result is unknown BLOOD FLOW-QWB 2024-12-11 00:53:10 400 F HEIGHT IN INCHES 2024-12-11 00:53:10 67 Inches F VM (KT/V MEAN VOL) 2024-12-11 00:53:10 F Unable to calculate: Post BUN lab result is unknown VT (KT/V TX VOL) 2024-12-11 00:53:10 F Unable to calculate: Post BUN lab result is unknown PRESCRIBED DAYS/WEEK 2024-12-11 00:53:10 F Unable to calculate: Post BUN lab result is unknown BSA LANA 2024-12-11 00:53:10 F Unable to calculate: Post BUN lab result is unknown BUN/CREAT 2024-12-11 00:52:14 10.1 Calc F 6.7-37.1 BUN/CREAT 2024-12-11 00:52:14 10.1 Calc F 6.7-37.1 Urea nitrogen [Mass/volume] in Serum or Plasma 2024-12-11 00:51:16 20 mg/dL F 9.0-23.0 Creatinine [Mass/volume] in Serum or Plasma 2024-12-11 00:51:16 1.98 mg/dL F 0.55-1.02 Urea nitrogen [Mass/volume] in Serum or Plasma 2024-12-11 00:51:16 20 mg/dL F 9.0-23.0 Creatinine [Mass/volume] in Serum or Plasma 2024-12-11 00:51:16 1.98 mg/dL F 0.55-1.02 Creatinine [Mass/volume] in Serum or Plasma 2024-12-09 14:59:00 1.85 mg/dL F BUN/CREAT 2024-12-03 15:33:41 8.2 Calc F 6.7-37.1 Urea nitrogen [Mass/volume] in Serum or Plasma 2024-12-03 15:32:20 17 mg/dL F 9.0-23.0 Creatinine [Mass/volume] in Serum or Plasma 2024-12-03 15:32:20 2.07 mg/dL F 0.55-1.02 CRE CLR UR/BSA 2024-12-01 20:21:20 15 mL/min F 75.0-115.0 CRE CLR UR/BSA 2024-12-01 20:21:20 15 mL/min F 75.0-115.0 Creatinine [Mass/volume] in Serum or Plasma 2024-12-01 20:20:18 2.17 mg/dL F 0.55-1.02 Creatinine [Mass/volume] in Serum or Plasma 2024-12-01 20:20:18 2.17 mg/dL F 0.55-1.02 BSA LANA 2024-12-01 17:09:59 1.81 sq m F BSA LANA 2024-12-01 17:09:59 1.81 sq m F Creatinine [Mass/volume] in Urine 2024-12-01 17:09:13 29.94 mg/dL F Creatinine [Mass/volume] in Urine 2024-12-01 17:09:13 29.94 mg/dL F COLLECTION TIME FOR URINE 2024-11-30 17:33:44 1440 min F TOTAL VOLUME-24 HR URINE 2024-11-30 17:33:44 1600 mL F TOTAL VOLUME-24 HR URINE 2024-11-30 17:33:44 1600 mL F COLLECTION TIME FOR URINE 2024-11-30 17:33:44 1440 min F HEIGHT IN INCHES 2024-11-30 17:33:44 67 Inches F BODY WEIGHT (LBS) 2024-11-30 17:33:44 154.1 lbs F BODY WEIGHT (LBS) 2024-11-30 17:33:44 154.1 lbs F HEIGHT IN INCHES 2024-11-30 17:33:44 67 Inches F AMPUTATE FACTOR 2024-11-30 17:33:41 0 F AMPUTATE FACTOR 2024-11-30 17:33:41 0 F BUN/CREAT 2024-11-26 14:39:21 8.1 Calc F 8.2-46.0 CRE CLR UR/BSA 2024-11-26 14:39:21 see comments F 75.0-115.0 Unable to Calculate. KRU-UREA CLR UR 2024-11-26 14:39:21 0 mL/min F KRU-UREA CLR UR 2024-11-26 14:39:21 0 mL/min F CRE CLR UR/BSA 2024-11-26 14:39:21 see comments F 75.0-115.0 Unable to Calculate. BUN/CREAT 2024-11-26 14:39:21 8.1 Calc F 8.2-46.0 Urea nitrogen [Mass/volume] in Serum or Plasma 2024-11-26 14:38:14 20 mg/dL F 9.0-23.0 Creatinine [Mass/volume] in Serum or Plasma 2024-11-26 14:38:14 2.47 mg/dL F 0.55-1.02 Creatinine [Mass/volume] in Serum or Plasma 2024-11-26 14:38:14 2.47 mg/dL F 0.55-1.02 Urea nitrogen [Mass/volume] in Serum or Plasma 2024-11-26 14:38:14 20 mg/dL F 9.0-23.0 BSA LANA 2024-11-26 14:14:24 see comments F Unable to Calculate. YRIS SCHWARTZ 2024-11-26 14:14:24 see comments F Unable to Calculate. BODY WEIGHT (LBS) 2024-11-25 18:00:18 Not Provided F HEIGHT IN INCHES 2024-11-25 18:00:18 67 Inches F HEIGHT IN INCHES 2024-11-25 18:00:18 67 Inches F BODY WEIGHT (LBS) 2024-11-25 18:00:18 Not Provided F BUN/CREAT 2024-11-19 13:02:20 7 Calc F 8.2-46.0 Creatinine [Mass/volume] in Serum or Plasma 2024-11-19 13:01:22 3.27 mg/dL F 0.55-1.02 Urea nitrogen [Mass/volume] in Serum or Plasma 2024-11-19 13:01:22 23 mg/dL F 9.0-23.0 nPCR 2024-11-12 05:24:03 0.98 G/KG/D F BSA LANA 2024-11-12 05:24:03 1.82 sq m F Residual kt/v 2024-11-12 05:24:03 F Unable to calculate: Post BUN lab result is unknown WEIGHT (KG) 2024-11-12 05:24:03 71 kg F URR% 2024-11-12 05:24:03 80 % F Total Kt/V 2024-11-12 05:24:03 1.91 F VT (KT/V TX VOL) 2024-11-12 05:24:03 31.2 L F PRESCRIBED DAYS/WEEK 2024-11-12 05:24:03 3 Day/Wk F TBW ([place]) 2024-11-12 05:24:03 33.6 Liters F HEIGHT IN INCHES 2024-11-12 05:24:03 67 Inches F PATIENT AGE 2024-11-12 05:24:03 79 Years F WEIGHT - POST DAY 1 2024-11-12 05:24:03 71 kg F eKt/V 2024-11-12 05:24:03 1.6 F stdKt/V (DIAL) 2024-11-12 05:24:03 N/A F KT/V PRESCRIBED 2024-11-12 05:24:03 2.21 F Std Renal KT/V 2024-11-12 05:24:03 N/A F VM (KT/V MEAN VOL) 2024-11-12 05:24:03 29.2 F WEIGHT - PRE DAY 1 2024-11-12 05:24:03 71.9 kg F TOTAL HOURS/WEEK DIALYSIS 2024-11-12 05:24:03 9 hrs F DIALYZER FLOW-QD 2024-11-12 05:24:03 800 mL/min F LENGTH OF DIALYSIS 2024-11-12 05:24:03 210 min F AMPUTATE FACTOR 2024-11-12 05:24:03 0 F Dialyzer ИРИНА 2024-11-12 05:24:03 1264 Calc F BLOOD FLOW-QWB 2024-11-12 05:24:03 374 F stdKT/V Total 2024-11-12 05:24:03 N/A F CURRENT KRU 2024-11-12 05:24:03 F Unable to calculate: Post BUN lab result is unknown spKt/V 2024-11-12 05:24:03 1.91 F Urea nitrogen [Mass/volume] in Serum or Plasma --post dialysis 2024-11-12 05:21:21 6 mg/dL F 9.0-23.0 BUN/CREAT 2024-11-11 20:27:56 7.5 Calc F 8.2-46.0 Creatinine [Mass/volume] in Serum or Plasma 2024-11-11 20:22:18 4.01 mg/dL F 0.55-1.02 Urea nitrogen [Mass/volume] in Serum or Plasma 2024-11-11 20:22:18 30 mg/dL F 9.0-23.0 BUN/CREAT 2024-11-03 13:42:19 4.5 Calc F 6.7-37.1 Creatinine [Mass/volume] in Serum or Plasma 2024-11-03 13:41:15 5.74 mg/dL F 0.55-1.02 Urea nitrogen [Mass/volume] in Serum or Plasma 2024-11-03 13:41:15 26 mg/dL F 9.0-23.0 BLOOD FLOW-QWB 2024-11-01 19:27:00 205 F AMPUTATE FACTOR 2024-11-01 19:27:00 0 F Residual kt/v 2024-11-01 19:27:00 F TBW ([place]) 2024-11-01 19:27:00 35.03 Liters F TOTAL HOURS/WEEK DIALYSIS 2024-11-01 19:27:00 3 hrs F CURRENT KRU 2024-11-01 19:27:00 F stdKT/V Total 2024-11-01 19:27:00 N/A F WEIGHT - POST DAY 1 2024-11-01 19:27:00 76.8 kg F HEIGHT IN INCHES 2024-11-01 19:27:00 67 Inches F spKt/V 2024-11-01 19:27:00 1.19 F KT/V PRESCRIBED 2024-11-01 19:27:00 1.82 F PRESCRIBED DAYS/WEEK 2024-11-01 19:27:00 3 Day/Wk F eKt/V 2024-11-01 19:27:00 1.01 F Std Renal KT/V 2024-11-01 19:27:00 N/A F stdKt/V (DIAL) 2024-11-01 19:27:00 N/A F VT (KT/V TX VOL) 2024-11-01 19:27:00 28.6 L F PATIENT AGE 2024-11-01 19:27:00 78 Years F VM (KT/V MEAN VOL) 2024-11-01 19:27:00 28.6 F URR% 2024-11-01 19:27:00 69 % F WEIGHT - PRE DAY 1 2024-11-01 19:27:00 76.8 kg F DIALYZER FLOW-QD 2024-11-01 19:27:00 600 mL/min F nPCR 2024-11-01 19:27:00 0.3 G/KG/D F LENGTH OF DIALYSIS 2024-11-01 19:27:00 189 min F WEIGHT (KG) 2024-11-01 19:27:00 76.5 kg F BSA LANA 2024-11-01 19:27:00 1.88 sq m F Total Kt/V 2024-11-01 19:27:00 1.19 F Dialyzer ИРИНА 2024-11-01 19:27:00 1218 Calc F CRE CLR UR/BSA 2024-11-01 19:26:11 see comments F 75.0-115.0 Unable to Calculate. KRU-UREA CLR UR 2024-11-01 19:26:11 0 mL/min F BUN/CREAT 2024-11-01 19:26:11 4.6 Calc F 8.2-46.0 AMPUTATE FACTOR 2024-11-01 19:25:14 0 F BODY WEIGHT (LBS) 2024-11-01 19:25:13 URR% 2024-11-01 07:37:12 F Canceled - Specimen not received 5 days past draw date,Unable to Calculate. Creatinine [Mass/volume] in Serum or Plasma 2024-11-01 07:24:04 F Canceled - Specimen not received 5 days past draw date Urea nitrogen [Mass/volume] in Serum or Plasma 2024-11-01 07:24:04 F Canceled - Specimen not received 5 days past draw date Creatinine [Mass/volume] in Serum or Plasma 2024-10-27 19:56:27 6.89 mg/dL F 0.55-1.02 Urea nitrogen [Mass/volume] in Serum or Plasma 2024-10-27 19:56:27 32 mg/dL F 9.0-23.0 Urea nitrogen [Mass/volume] in Serum or Plasma --post dialysis 2024-10-27 17:02:22 10 mg/dL F 9.0-23.0 HEIGHT IN INCHES 2024-10-26 19:43:25 67 Inches F WEIGHT (KG) 2024-10-26 19:37:57 76.5 kg F AMPUTATE FACTOR 2024-10-26 19:37:57 0 F PATIENT AGE 2024-10-26 19:37:57 78 Years F LENGTH OF DIALYSIS DIALYZER FLOW-QD PRESCRIBED DAYS/WEEK nPCR eKt/V Std Renal KT/V spKt/V VT (KT/V TX VOL) stdKt/V (DIAL) VM (KT/V MEAN VOL) BSA LANA KT/V PRESCRIBED Total Kt/V CURRENT KRU TOTAL HOURS/WEEK DIALYSIS WEIGHT - POST DAY 1 WEIGHT - PRE DAY 1 BLOOD FLOW-QWB Dialyzer ИРИНА Residual kt/v TBW ([place]) stdKT/V Total Anemia Description Draw Date Result/Unit Status Ref Range Result Comments HCT CALC HGBX3 2024-12-10 23:36:19 26.7 % F 37.0-47.0 HCT CALC HGBX3 2024-12-10 23:36:19 26.7 % F 37.0-47.0 Hemoglobin [Mass/volume] in Blood 2024-12-10 23:35:15 8.9 g/dL F 12.0-16.0 Hemoglobin [Mass/volume] in Blood 2024-12-10 23:35:15 8.9 g/dL F 12.0-16.0 HCT CALC HGBX3 2024-11-26 13:42:15 26.4 % F 37.0-47.0 HCT CALC HGBX3 2024-11-26 13:42:15 26.4 % F 37.0-47.0 Erythrocytes [#/volume] in Blood by Automated count 2024-11-26 13:41:16 2.94 x 10^6 cells/uL F 3.85-5.2 Platelets [#/volume] in Blood by Automated count 2024-11-26 13:41:16 246 x 10^3 cells/uL F 140.0-450.0 Platelets [#/volume] in Blood by Automated count 2024-11-26 13:41:16 246 x 10^3 cells/uL F 140.0-450.0 Erythrocytes [#/volume] in Blood by Automated count 2024-11-26 13:41:16 2.94 x 10^6 cells/uL F 3.85-5.2 MCHC [Mass/volume] by Automated count 2024-11-26 13:41:14 33.2 g/dL F 29.6-35.3 Erythrocyte distribution width [Ratio] by Automated count 2024-11-26 13:41:14 15.1 % F 11.0-15.0 Hematocrit [Volume Fraction] of Blood by Automated count 2024-11-26 13:41:14 26.6 % F 37.0-47.0 Hemoglobin [Mass/volume] in Blood 2024-11-26 13:41:14 8.8 g/dL F 12.0-16.0 MCV [Entitic volume] by Automated count 2024-11-26 13:41:14 90.3 fL F 80.0-100.0 MCH [Entitic mass] by Automated count 2024-11-26 13:41:14 30 pg F 25.9-34.2 MCV [Entitic volume] by Automated count 2024-11-26 13:41:14 90.3 fL F 80.0-100.0 Erythrocyte distribution width [Ratio] by Automated count 2024-11-26 13:41:14 15.1 % F 11.0-15.0 Hemoglobin [Mass/volume] in Blood 2024-11-26 13:41:14 8.8 g/dL F 12.0-16.0 MCH [Entitic mass] by Automated count 2024-11-26 13:41:14 30 pg F 25.9-34.2 Hematocrit [Volume Fraction] of Blood by Automated count 2024-11-26 13:41:14 26.6 % F 37.0-47.0 MCHC [Mass/volume] by Automated count 2024-11-26 13:41:14 33.2 g/dL F 29.6-35.3 IRON SATURATION 2024-11-20 05:14:16 14 % F 16.0-46.0 TIBC 2024-11-20 05:14:16 280 ug/dL F 250.0-425.0 Iron [Mass/volume] in Serum or Plasma 2024-11-20 05:09:26 38 ug/dL F 50.0-170.0 Iron binding capacity.unsaturated [Mass/volume] in Serum or Plasma 2024-11-20 05:09:18 242 ug/dL F 80.0-375.0 HCT CALC HGBX3 2024-11-11 19:41:03 25.5 % F 37.0-47.0 Hemoglobin [Mass/volume] in Blood 2024-11-11 19:40:17 8.5 g/dL F 12.0-16.0 Ferritin [Mass/volume] in Serum or Plasma 2024-11-11 19:24:19 44 ng/mL F 10.0-291.0 HCT CALC HGBX3 2024-11-03 17:50:13 25.8 % F 37.0-47.0 Hemoglobin [Mass/volume] in Blood 2024-11-03 17:49:14 8.6 g/dL F 12.0-16.0 TIBC 2024-11-01 19:26:11 290 ug/dL F 250.0-425.0 IRON SATURATION 2024-11-01 19:26:11 14 % F 16.0-46.0 HCT CALC HGBX3 2024-11-01 19:26:11 26.7 % F 37.0-47.0 HCT CALC HGBX3 2024-11-01 07:37:12 F Unable to Calculate.,Canc eled - Specimen not received 5 days past draw date IRON SATURATION 2024-11-01 07:37:12 F Canceled - Specimen not received 5 days past draw date,Unable to Calculate. TIBC 2024-11-01 07:37:12 F Canceled - Specimen not received 5 days past draw date,Unable to Calculate. Iron [Mass/volume] in Serum or Plasma 2024-11-01 07:24:04 F Canceled - Specimen not received 5 days past draw date Hematocrit [Volume Fraction] of Blood by Automated count 2024-11-01 07:24:04 F Canceled - Specimen not received 5 days past draw date MCH [Entitic mass] by Automated count 2024-11-01 07:24:04 F Canceled - Specimen not received 5 days past draw date Reticulocytes/100 erythrocytes in Blood by Automated count 2024-11-01 07:24:04 F Canceled - Specimen not received 5 days past draw date MCV [Entitic volume] by Automated count 2024-11-01 07:24:04 F Canceled - Specimen not received 5 days past draw date Platelets [#/volume] in Blood by Automated count 2024-11-01 07:24:04 F Canceled - Specimen not received 5 days past draw date MCHC [Mass/volume] by Automated count 2024-11-01 07:24:04 F Canceled - Specimen not received 5 days past draw date Hemoglobin [Mass/volume] in Blood 2024-11-01 07:24:04 F Canceled - Specimen not received 5 days past draw date Iron binding capacity.unsaturated [Mass/volume] in Serum or Plasma 2024-11-01 07:24:04 F Canceled - Specimen not received 5 days past draw date Erythrocyte distribution width [Ratio] by Automated count 2024-11-01 07:24:04 F Canceled - Specimen not received 5 days past draw date Erythrocytes [#/volume] in Blood by Automated count 2024-11-01 07:24:04 F Canceled - Specimen not received 5 days past draw date Reticulocytes/100 erythrocytes in Blood by Automated count 2024-10-28 01:24:19 5.69 % F 0.7-2.5 Hemoglobin [Mass/volume] in Blood 2024-10-28 01:24:19 8.9 g/dL F 12.0-16.0 MCH [Entitic mass] by Automated count 2024-10-28 01:24:19 30.5 pg F 25.9-34.2 Hematocrit [Volume Fraction] of Blood by Automated count 2024-10-28 01:24:19 27.8 % F 37.0-47.0 MCV [Entitic volume] by Automated count 2024-10-28 01:24:19 95.1 fL F 80.0-100.0 Erythrocyte distribution width [Ratio] by Automated count 2024-10-28 01:24:19 16.4 % F 11.0-15.0 Platelets [#/volume] in Blood by Automated count 2024-10-28 01:24:19 413 x 10^3 cells/uL F 140.0-450.0 MCHC [Mass/volume] by Automated count 2024-10-28 01:24:19 32.1 g/dL F 29.6-35.3 Erythrocytes [#/volume] in Blood by Automated count 2024-10-28 01:24:19 2.92 x 10^6 cells/uL F 3.85-5.2 Iron [Mass/volume] in Serum or Plasma 2024-10-28 01:17:08 42 ug/dL F 50.0-170.0 Iron binding capacity.unsaturated [Mass/volume] in Serum or Plasma 2024-10-28 01:17:08 248 ug/dL F 80.0-375.0 Comorbidities Description Draw Date Result/Unit Status Ref Range Result Comments Thyrotropin [Units/volume] in Serum or Plasma by Detection limit <= 0.05 mIU/L 2024-12-02 03:46:47 1.18 uIU/mL F 0.55-4.78 Thyrotropin [Units/volume] in Serum or Plasma by Detection limit <= 0.05 mIU/L 2024-12-02 03:46:47 1.18 uIU/mL F 0.55-4.78 FluidBP Description Draw Date Result/Unit Status Ref Range Result Comments Sodium [Moles/volume] in Serum or Plasma 2024-12-11 07:11:37 143 mEq/L F 136.0-145.0 Sodium [Moles/volume] in Serum or Plasma 2024-12-11 07:11:37 143 mEq/L F 136.0-145.0 Sodium [Moles/volume] in Serum or Plasma 2024-12-09 14:59:00 135 mEq/L F Sodium [Moles/volume] in Serum or Plasma 2024-12-03 18:26:22 142 mEq/L F 136.0-145.0 Sodium [Moles/volume] in Serum or Plasma 2024-11-26 21:45:51 140 mEq/L F 136.0-145.0 Sodium [Moles/volume] in Serum or Plasma 2024-11-26 21:45:51 140 mEq/L F 136.0-145.0 Sodium [Moles/volume] in Serum or Plasma 2024-11-20 05:09:18 142 mEq/L F 136.0-145.0 Sodium [Moles/volume] in Serum or Plasma 2024-11-12 03:20:59 141 mEq/L F 136.0-145.0 Sodium [Moles/volume] in Serum or Plasma 2024-11-03 18:45:19 137 mEq/L F 136.0-145.0 Sodium [Moles/volume] in Serum or Plasma 2024-11-01 07:24:04 F Canceled - Specimen not received 5 days past draw date Sodium [Moles/volume] in Serum or Plasma 2024-10-28 01:17:08 138 mEq/L F 136.0-145.0 General Description Draw Date Result/Unit Status Ref Range Result Comments Chloride [Moles/volume] in Serum or Plasma 2024-12-11 07:10:50 109 mEq/L F 98.0-107.0 Chloride [Moles/volume] in Serum or Plasma 2024-12-11 07:10:50 109 mEq/L F 98.0-107.0 Chloride [Moles/volume] in Serum or Plasma 2024-12-09 14:59:00 106 mEq/L F Chloride [Moles/volume] in Serum or Plasma 2024-12-03 18:26:22 105 mEq/L F 98.0-107.0 Chloride [Moles/volume] in Serum or Plasma 2024-11-26 21:45:51 104 mEq/L F 98.0-107.0 Chloride [Moles/volume] in Serum or Plasma 2024-11-26 21:45:51 104 mEq/L F 98.0-107.0 Alanine aminotransferase [Enzymatic activity/volume] in Serum or Plasma 2024-11-26 14:38:14 10 U/L F 10.0-49.0 Aspartate aminotransferase [Enzymatic activity/volume] in Serum or Plasma 2024-11-26 14:38:14 14 U/L F 0.0-33.0 Aspartate aminotransferase [Enzymatic activity/volume] in Serum or Plasma 2024-11-26 14:38:14 14 U/L F 0.0-33.0 Alanine aminotransferase [Enzymatic activity/volume] in Serum or Plasma 2024-11-26 14:38:14 10 U/L F 10.0-49.0 Chloride [Moles/volume] in Serum or Plasma 2024-11-20 05:09:18 102 mEq/L F 98.0-107.0 Chloride [Moles/volume] in Serum or Plasma 2024-11-12 03:20:59 101 mEq/L F 98.0-107.0 Chloride [Moles/volume] in Serum or Plasma 2024-11-03 18:45:19 100 mEq/L F 98.0-107.0 Aluminum [Mass/volume] in Serum or Plasma 2024-11-01 07:24:04 F Source:,Canceled - Specimen not received 5 days past draw date Aspartate aminotransferase [Enzymatic activity/volume] in Serum or Plasma 2024-11-01 07:24:04 F Canceled - Specimen not received 5 days past draw date Chloride [Moles/volume] in Serum or Plasma 2024-11-01 07:24:04 F Canceled - Specimen not received 5 days past draw date Alanine aminotransferase [Enzymatic activity/volume] in Serum or Plasma 2024-11-01 07:24:04 F Canceled - Specimen not received 5 days past draw date Chloride [Moles/volume] in Serum or Plasma 2024-10-28 01:17:08 100 mEq/L F 98.0-107.0 Alanine aminotransferase [Enzymatic activity/volume] in Serum or Plasma 2024-10-27 19:56:27 7 U/L F 10.0-49.0 Aspartate aminotransferase [Enzymatic activity/volume] in Serum or Plasma 2024-10-27 19:56:27 15 U/L F 0.0-33.0 Aluminum [Mass/volume] in Serum or Plasma 2024-10-27 18:24:10 15 ug/L F 0.0-9.0 InfectionVaccination Description Draw Date Result/Unit Status Ref Range Result Comments Basophils/100 leukocytes in Blood by Automated count 2024-11-26 13:41:16 0.4 % F Neutrophils/100 leukocytes in Blood by Automated count 2024-11-26 13:41:16 66.7 % F Eosinophils/100 leukocytes in Blood by Automated count 2024-11-26 13:41:16 2.9 % F Neutrophils [#/volume] in Blood by Automated count 2024-11-26 13:41:16 3862 Cells/uL F 2000.0-8800.0 Eosinophils [#/volume] in Blood by Automated count 2024-11-26 13:41:16 168 Cells/uL F 0.0-700.0 Monocytes/100 leukocytes in Blood by Automated count 2024-11-26 13:41:16 5.4 % F Leukocytes [#/volume] in Blood by Automated count 2024-11-26 13:41:16 5.8 x 10^3 cells/uL F 4.0-11.0 Monocytes [#/volume] in Blood by Automated count 2024-11-26 13:41:16 313 Cells/uL F 0.0-1100.0 Basophils [#/volume] in Blood by Automated count 2024-11-26 13:41:16 23 Cells/uL F 0.0-400.0 Neutrophils/100 leukocytes in Blood by Automated count 2024-11-26 13:41:16 66.7 % F Basophils/100 leukocytes in Blood by Automated count 2024-11-26 13:41:16 0.4 % F Eosinophils/100 leukocytes in Blood by Automated count 2024-11-26 13:41:16 2.9 % F Monocytes/100 leukocytes in Blood by Automated count 2024-11-26 13:41:16 5.4 % F Monocytes [#/volume] in Blood by Automated count 2024-11-26 13:41:16 313 Cells/uL F 0.0-1100.0 Basophils [#/volume] in Blood by Automated count 2024-11-26 13:41:16 23 Cells/uL F 0.0-400.0 Eosinophils [#/volume] in Blood by Automated count 2024-11-26 13:41:16 168 Cells/uL F 0.0-700.0 Leukocytes [#/volume] in Blood by Automated count 2024-11-26 13:41:16 5.8 x 10^3 cells/uL F 4.0-11.0 Neutrophils [#/volume] in Blood by Automated count 2024-11-26 13:41:16 3862 Cells/uL F 2000.0-8800.0 Lymphocytes/100 leukocytes in Blood by Automated count 2024-11-26 13:41:14 24.6 % F Lymphocytes [#/volume] in Blood by Automated count 2024-11-26 13:41:14 1424 Cells/uL F 620.0-3660.0 Lymphocytes/100 leukocytes in Blood by Automated count 2024-11-26 13:41:14 24.6 % F Lymphocytes [#/volume] in Blood by Automated count 2024-11-26 13:41:14 1424 Cells/uL F 620.0-3660.0 Eosinophils/100 leukocytes in Blood by Automated count 2024-11-01 07:24:04 F Canceled - Specimen not received 5 days past draw date Lymphocytes/100 leukocytes in Blood by Automated count 2024-11-01 07:24:04 F Canceled - Specimen not received 5 days past draw date Neutrophils/100 leukocytes in Blood by Automated count 2024-11-01 07:24:04 F Canceled - Specimen not received 5 days past draw date Monocytes [#/volume] in Blood by Automated count 2024-11-01 07:24:04 F Canceled - Specimen not received 5 days past draw date Lymphocytes [#/volume] in Blood by Automated count 2024-11-01 07:24:04 F Canceled - Specimen not received 5 days past draw date Basophils/100 leukocytes in Blood by Automated count 2024-11-01 07:24:04 F Canceled - Specimen not received 5 days past draw date Basophils [#/volume] in Blood by Automated count 2024-11-01 07:24:04 F Canceled - Specimen not received 5 days past draw date Eosinophils [#/volume] in Blood by Automated count 2024-11-01 07:24:04 F Canceled - Specimen not received 5 days past draw date Leukocytes [#/volume] in Blood by Automated count 2024-11-01 07:24:04 F Canceled - Specimen not received 5 days past draw date Neutrophils [#/volume] in Blood by Automated count 2024-11-01 07:24:04 F Canceled - Specimen not received 5 days past draw date Monocytes/100 leukocytes in Blood by Automated count 2024-11-01 07:24:04 F Canceled - Specimen not received 5 days past draw date Monocytes/100 leukocytes in Blood by Automated count 2024-10-28 01:24:19 5 % F Basophils/100 leukocytes in Blood by Automated count 2024-10-28 01:24:19 0.4 % F Monocytes [#/volume] in Blood by Automated count 2024-10-28 01:24:19 343 Cells/uL F 0.0-1100.0 Eosinophils [#/volume] in Blood by Automated count 2024-10-28 01:24:19 130 Cells/uL F 0.0-700.0 Neutrophils [#/volume] in Blood by Automated count 2024-10-28 01:24:19 5090 Cells/uL F 2000.0-8800.0 Lymphocytes [#/volume] in Blood by Automated count 2024-10-28 01:24:19 1269 Cells/uL F 620.0-3660.0 Neutrophils/100 leukocytes in Blood by Automated count 2024-10-28 01:24:19 74.2 % F Lymphocytes/100 leukocytes in Blood by Automated count 2024-10-28 01:24:19 18.5 % F Eosinophils/100 leukocytes in Blood by Automated count 2024-10-28 01:24:19 1.9 % F Basophils [#/volume] in Blood by Automated count 2024-10-28 01:24:19 27 Cells/uL F 0.0-400.0 Leukocytes [#/volume] in Blood by Automated count 2024-10-28 01:24:19 6.9 x 10^3 cells/uL F 4.0-11.0 MineralBone Disorder Description Draw Date Result/Unit Status Ref Range Result Comments CA CORRECTED 2024-12-11 07:54:47 9.2 mg/dL F CA CORRECTED 2024-12-11 07:54:47 9.2 mg/dL F CA/PHOS PRODUCT 2024-12-11 07:52:43 39.6 Calc F 21.0-53.0 CA*PO4 CORRCTD 2024-12-11 07:52:43 40.7 Calc F 21.0-53.0 CA/PHOS PRODUCT 2024-12-11 07:52:43 39.6 Calc F 21.0-53.0 CA*PO4 CORRCTD 2024-12-11 07:52:43 40.7 Calc F 21.0-53.0 Calcium [Mass/volume] in Serum or Plasma 2024-12-11 07:10:50 9 mg/dL F 8.7-10.4 Calcium [Mass/volume] in Serum or Plasma 2024-12-11 07:10:50 9 mg/dL F 8.7-10.4 Parathyrin.intact [Mass/volume] in Serum or Plasma 2024-12-11 01:06:26 133 pg/mL F 18.0-80.0 Parathyrin.intact [Mass/volume] in Serum or Plasma 2024-12-11 01:06:26 133 pg/mL F 18.0-80.0 Phosphate [Mass/volume] in Serum or Plasma 2024-12-11 00:51:16 4.4 mg/dL F 2.4-5.1 Phosphate [Mass/volume] in Serum or Plasma 2024-12-11 00:51:16 4.4 mg/dL F 2.4-5.1 Alkaline phosphatase [Enzymatic activity/volume] in Serum or Plasma 2024-11-26 14:38:14 125 U/L F 46.0-116.0 Alkaline phosphatase [Enzymatic activity/volume] in Serum or Plasma 2024-11-26 14:38:14 125 U/L F 46.0-116.0 CA CORRECTED 2024-11-12 03:45:18 9.2 mg/dL F CA/PHOS PRODUCT 2024-11-12 03:43:13 36.1 Calc F 21.0-53.0 CA*PO4 CORRCTD 2024-11-12 03:43:13 38.5 Calc F 21.0-53.0 Calcium [Mass/volume] in Serum or Plasma 2024-11-12 03:20:59 8.6 mg/dL F 8.7-10.4 Phosphate [Mass/volume] in Serum or Plasma 2024-11-11 20:22:18 4.2 mg/dL F 2.4-5.1 Parathyrin.intact [Mass/volume] in Serum or Plasma 2024-11-11 19:24:19 142 pg/mL F 18.0-80.0 CA CORRECTED 2024-11-01 19:26:59 9 mg/dL F CA/PHOS PRODUCT 2024-11-01 19:26:11 39.5 Calc F 21.0-53.0 CA*PO4 CORRCTD 2024-11-01 19:26:11 42.1 Calc F 21.0-53.0 CA*PO4 CORRCTD 2024-11-01 07:37:12 F Canceled - Specimen not received 5 days past draw date,Unable to Calculate. CA/PHOS PRODUCT 2024-11-01 07:37:12 F Canceled - Specimen not received 5 days past draw date,Unable to Calculate. Phosphate [Mass/volume] in Serum or Plasma 2024-11-01 07:24:04 F Canceled - Specimen not received 5 days past draw date Parathyrin.intact [Mass/volume] in Serum or Plasma 2024-11-01 07:24:04 F Canceled - Specimen not received 5 days past draw date Alkaline phosphatase [Enzymatic activity/volume] in Serum or Plasma 2024-11-01 07:24:04 F Canceled - Specimen not received 5 days past draw date Calcium [Mass/volume] in Serum or Plasma 2024-11-01 07:24:04 F Canceled - Specimen not received 5 days past draw date Parathyrin.intact [Mass/volume] in Serum or Plasma 2024-10-28 02:35:15 124 pg/mL F 18.0-80.0 Calcium [Mass/volume] in Serum or Plasma 2024-10-28 01:17:08 8.4 mg/dL F 8.7-10.4 Phosphate [Mass/volume] in Serum or Plasma 2024-10-27 19:56:27 4.7 mg/dL F 2.4-5.1 Alkaline phosphatase [Enzymatic activity/volume] in Serum or Plasma 2024-10-27 19:56:27 200 U/L F 46.0-116.0 CA CORRECTED F Nutrition Description Draw Date Result/Unit Status Ref Range Result Comments Potassium [Moles/volume] in Serum or Plasma 2024-12-11 07:11:37 4 mEq/L F 3.5-5.1 Potassium [Moles/volume] in Serum or Plasma 2024-12-11 07:11:37 4 mEq/L F 3.5-5.1 Bicarbonate [Moles/volume] in Serum or Plasma 2024-12-11 00:51:16 22 mEq/L F 20.0-31.0 Bicarbonate [Moles/volume] in Serum or Plasma 2024-12-11 00:51:16 22 mEq/L F 20.0-31.0 Potassium [Moles/volume] in Serum or Plasma 2024-12-09 14:59:00 3.9 mEq/L F Potassium [Moles/volume] in Serum or Plasma 2024-12-03 18:26:22 3.8 mEq/L F 3.5-5.1 Bicarbonate [Moles/volume] in Serum or Plasma 2024-12-03 15:32:20 26 mEq/L F 20.0-31.0 Potassium [Moles/volume] in Serum or Plasma 2024-11-26 21:45:51 3.4 mEq/L F 3.5-5.1 Potassium [Moles/volume] in Serum or Plasma 2024-11-26 21:45:51 3.4 mEq/L F 3.5-5.1 A/G RATIO 2024-11-26 14:39:21 1.8 Calc F 1.0-2.5 GLOBULIN 2024-11-26 14:39:21 2.1 g/dL F 0.9-5.0 GLOBULIN 2024-11-26 14:39:21 2.1 g/dL F 0.9-5.0 A/G RATIO 2024-11-26 14:39:21 1.8 Calc F 1.0-2.5 Albumin [Mass/volume] in Serum or Plasma by Bromocresol green (BCG) dye binding method 2024-11-26 14:38:14 3.7 g/dL F 3.2-4.8 Glucose [Mass/volume] in Serum or Plasma 2024-11-26 14:38:14 110 mg/dL F 74.0-106.0 Protein [Mass/volume] in Serum or Plasma 2024-11-26 14:38:14 5.8 g/dL F 5.7-8.2 Bicarbonate [Moles/volume] in Serum or Plasma 2024-11-26 14:38:14 26 mEq/L F 20.0-31.0 Lactate dehydrogenase [Enzymatic activity/volume] in Serum or Plasma 2024-11-26 14:38:14 214 U/L F 120.0-246.0 Lactate dehydrogenase [Enzymatic activity/volume] in Serum or Plasma 2024-11-26 14:38:14 214 U/L F 120.0-246.0 Bicarbonate [Moles/volume] in Serum or Plasma 2024-11-26 14:38:14 26 mEq/L F 20.0-31.0 Albumin [Mass/volume] in Serum or Plasma by Bromocresol green (BCG) dye binding method 2024-11-26 14:38:14 3.7 g/dL F 3.2-4.8 Protein [Mass/volume] in Serum or Plasma 2024-11-26 14:38:14 5.8 g/dL F 5.7-8.2 Glucose [Mass/volume] in Serum or Plasma 2024-11-26 14:38:14 110 mg/dL F 74.0-106.0 Potassium [Moles/volume] in Serum or Plasma 2024-11-20 05:09:18 3.5 mEq/L F 3.5-5.1 Bicarbonate [Moles/volume] in Serum or Plasma 2024-11-19 13:01:22 25 mEq/L F 20.0-31.0 Potassium [Moles/volume] in Serum or Plasma 2024-11-12 03:20:59 3.2 mEq/L F 3.5-5.1 Bicarbonate [Moles/volume] in Serum or Plasma 2024-11-11 20:22:18 24 mEq/L F 20.0-31.0 Potassium [Moles/volume] in Serum or Plasma 2024-11-03 18:45:19 3.5 mEq/L F 3.5-5.1 Bicarbonate [Moles/volume] in Serum or Plasma 2024-11-03 13:41:15 25 mEq/L F 20.0-31.0 A/G RATIO 2024-11-01 19:26:11 1.7 Calc F 1.0-2.5 GLOBULIN 2024-11-01 19:26:11 1.9 g/dL F 0.9-5.0 GLOBULIN 2024-11-01 07:37:12 F Unable to Calculate.,Cancel ed - Specimen not received 5 days past draw date A/G RATIO 2024-11-01 07:37:12 F Canceled - Specimen not received 5 days past draw date,Unable to Calculate. Bicarbonate [Moles/volume] in Serum or Plasma 2024-11-01 07:24:04 F Canceled - Specimen not received 5 days past draw date Protein [Mass/volume] in Serum or Plasma 2024-11-01 07:24:04 F Canceled - Specimen not received 5 days past draw date Potassium [Moles/volume] in Serum or Plasma 2024-11-01 07:24:04 F Canceled - Specimen not received 5 days past draw date Albumin [Mass/volume] in Serum or Plasma by Bromocresol green (BCG) dye binding method 2024-11-01 07:24:04 F Canceled - Specimen not received 5 days past draw date Lactate dehydrogenase [Enzymatic activity/volume] in Serum or Plasma 2024-11-01 07:24:04 F Canceled - Specimen not received 5 days past draw date Glucose [Mass/volume] in Serum or Plasma 2024-11-01 07:24:04 F Canceled - Specimen not received 5 days past draw date Potassium [Moles/volume] in Serum or Plasma 2024-10-28 01:17:08 4.3 mEq/L F 3.5-5.1 Lactate dehydrogenase [Enzymatic activity/volume] in Serum or Plasma 2024-10-27 19:56:27 265 U/L F 120.0-246.0 Albumin [Mass/volume] in Serum or Plasma by Bromocresol green (BCG) dye binding method 2024-10-27 19:56:27 3.3 g/dL F 3.2-4.8 Protein [Mass/volume] in Serum or Plasma 2024-10-27 19:56:27 5.2 g/dL F 5.7-8.2 Glucose [Mass/volume] in Serum or Plasma 2024-10-27 19:56:27 75 mg/dL F 74.0-106.0 Bicarbonate [Moles/volume] in Serum or Plasma 2024-10-27 19:56:27 24 mEq/L F 20.0-31.0 Other Description Draw Date Result/Unit Status Ref Range Result Comments ANION GAP 2024-12-09 14:59:00 8 Calc F Encounters No encounter information to report Immunizations Ordered Immunization Name Filled Immunization Name Date Status Comments Refusal Reason TST-PPD intradermal 2024-11-16 16:15:58 TST-PPD intradermal 2024-11-02 19:00:00 Plan of Treatment Planned Activity Provider Planned Date Details Commen ts Diagnostic Test Pending Álvaro Vanegas 2024-11-02 05:00:00 Alanine aminotransferase [Enzymatic activity/volume] in Serum or Plasma [code = 1742-6] Diagnostic Test Pending Álvaro Vanegas 2024-11-03 06:26:12 Hemoglobin [Mass/volume] in Blood [code = 718-7] Diagnostic Test Pending Álvaro Yousuf Darlingcell 2024-10-26 16:57:07 Glucose [Mass/volume] in Serum or Plasma [code = 2345-7] Diagnostic Test Pending [facility] 2024-10-26 16:57:25 Creatinine [Mass/volume] in Serum or Plasma [code = 2160-0] [facility] 2024-10-26 16:58:14 Albumin [Mass/volume] in Serum or Plasma by Bromocresol green (BCG) dye binding method [code = 55625-3] Diagnostic Test [facility] 2024-11-02 05:00:00 Parathyrin.intact [Mass/volume] in Serum or Plasma [code = 2731-8] Diagnostic Test Pending [facility] 2024-10-26 16:50:32 Aluminum [Mass/volume] in Serum or Plasma [code = 5574-9] Diagnostic Test P[facility] 2024-10-26 16:51:36 Sodium [Moles/volume] in Serum or Plasma [code = 2951-2] Diagnostic Test [facility] 2024-[facility]-22 20:08:16 In-Center Hemodialysis Treatment [code = IPI509] Diet [facility] November 09, 2024 Diet Calorie 25 kcal/kg Fluid Value 1200 mL/d Phosphorus Value 900 mg/d Potassium Value 2000 mg/d Protein Value 1.2 gm/kg Sodium Value 2000 mg/d Calculated Weight 73 kg
--- OUTSIDE RECORDS SUMMARY | 2025-01-31 14:19 | XMS_ITS | Encounter Summary ---
Author Organization [facility] Healthcare Address [address] [place] [address] Care Team Providers Care Dietist Name Role Phone Felix Powell MD Primary Care Provider [phone] Encounter Details Date Type Department Care Team (Late st Contact Info) Description 10/16/2021 [place] Only [facility] [place] [address] [place] [id number] Scanning, Provider Social History Tobacco Use Types Packs/Day Years Used Date Smoking Tobacco: Former Smokeless Tobacco: Never Alcohol Use Standard Drinks/Week Comments No 0 (1 standard drink = 0.6 oz pur e alcohol) Comments Unknown Sex and Gender Information Value Date Recorded Sex Assigned at Not on file 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 Gender Identity Female 09/29/2020 9:57 AM CDT Sexual Orientation Straight 09/29/2020 9: 57 AM CDT documented as of this encounter Plan of Treatment Not on file documented as of this encounter Procedures Procedure Name Priority Date/Time Associated Diagnosis Comments SCAN - LABS 10/16/2021 documented in this encounter Results * SCAN - LABS (10/16/2021) us Provider Scanning Final Result documented in this encounter Visit Diagnoses Not on filedocumented in this encounter Care Teams Dietist Relationship Specialty Start Date End Date Felix Powell MD [address] [place] [address] PCP - General 05/24/13 documented as of this encounter
[2025-01-31 14:47] LABS: Anion Gap 9 mmol/L (4-12); Blood Urea Nitrogen 67 mg/dL (7-17); Calcium 10.4 mg/dL (8.4-10.2); Carbon Dioxide 27 mmol/L (22-30); Chloride 97 mmol/L (98-107); Estimated Glomerular Filt Rate 21; Glucose 116 mg/dL (65-110); Potassium 4.2 mmol/L (3.4-5.0); Sodium 133 mmol/L (137-145)
== END 2025-01-31 13:51 | disposition home or self-care (01) ==
LOC: ANHLAB 13:51
PROVIDERS: PCP Internal Medicine; Visit Provider Internal Medicine Nephrology
DX: N17.9 Acute kidney failure, unspecified (principal)
CPT/HCPCS: 36415; 80048

== ENCOUNTER 2025-03-01 16:34 | Outpatient (CLI) | payer MEDICARE, SELFPAY ==
--- OUTSIDE RECORDS SUMMARY | 2019-01-18 | XMS_ITS | Encounter Summary ---
Author Organization [facility] Healthcare Address [address] [place] [address] Care Team Providers Care Engineering Intern Name Role Phone Felix Powell MD Primary Care Provider [phone] Reason for Visit * Diagnostic Imaging (Routine) - Pending Review Specialty Diagnoses / Procedures Referred By Danyell stinson Referred To Contact Procedures Breast Imaging Screening Outside Reference Transcribed Order, Provider Referral ID Status Reason Start Date Expiration Date V isits Requested Visits Authorized [id number] Pending Review 09/06/2024 10/06/2025 1 1 Encounter Details Date Type Department Care Team (Late st Contact Info) Description 01/18/2019 Hospital Encounter [facility] Radiology [facility] [address] [place], [place] [id number] Social History Tobacco Use Types Packs/Day Years Used Date Smoking Tobacco: Former Smokeless Tobacco: Never Alcohol Use Standard Drinks/Week Comments No 0 (1 standard drink = 0.6 oz pur e alcohol) Comments Unknown Sex and Gender Information Value Date Recorded Sex Assigned at Not on file Legal Sex Female 2:03 AM DIRECTOR OF SUSTAINABLE DESIGN Gender Identity Female 09/29/2020 9:57 AM CDT [...] only and have not been reviewed by [facility] Radiology. There will be no report generated by a [facility] Radiologist. Narrative RAD_M[facility]MO[facility] - 09/06/2024 2:42 PM CDT EXAMINATION: Images For Reference Purposes Only us Provider Transcribed Order IMG MAMMO PROCEDURES Final Result [facility] documented in this encounter Visit Diagnoses Not on filedocumented in this encounter Care Teams Engineering Intern Relationship Specialty Start Date End Date Felix Powell MD PCP - General 05/24/13 documented as of this encounter
--- OUTSIDE RECORDS SUMMARY | 2019-01-27 | XMS_ITS | Encounter Summary ---
Author Organization [facility] Healthcare Address [address] [place] [address] Care Team Providers Care Crm Specialist Name Role Phone Felix Powell MD Primary Care Provider [phone] Reason for Visit * Diagnostic Imaging (Routine) - Pending Review Specialty Diagnoses / Procedures Referred By Danyell stinson Referred To Contact Procedures Breast Imaging Diagnostic Outside Reference Transcribed Order, Provider Referral ID Status Reason Start Date Expiration Date V isits Requested Visits Authorized [id number] Pending Review 09/06/2024 10/06/2025 1 1 Encounter Details Date Type Department Care Team (Late st Contact Info) Description 01/27/2019 Hospital Encounter [facility] Radiology [facility] [address] [place], [place] [phone] Social History Tobacco Use Types Packs/Day Years Used Date Smoking Tobacco: Former Smokeless Tobacco: Never Alcohol Use Standard Drinks/Week Comments No 0 (1 standard drink = 0.6 oz pur e alcohol) Comments Unknown Sex and Gender Information Value Date Recorded Sex Assigned at Not on file Legal Sex Female 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 There will be no report generated by a [facility] Radiologist. Narrative RAD_MAMMO[facility] - 09/06/2024 2:42 PM CDT EXAMINATION: Images For Reference Purposes Only us Provider Transcribed Order IMG MAMMO PROCEDURES Final Result [facility] documented in this encounter Visit Diagnoses Not on filedocumented in this encounter Care Teams Crm Specialist Relationship Specialty Start Date End Date Felix Powell MD PCP - General 05/24/13 documented as of this encounter
--- OUTSIDE RECORDS SUMMARY | 2019-06-11 01:00 | XMS_ITS | Encounter Summary ---
Author Organization [facility] Healthcare Address [address] [place] [address] Care Team Providers Care Machine Shop Apprentice Name Role Phone Felix Powell MD Primary Care Provider [phone] Reason for Visit * Diagnostic Imaging (Routine) - Pending Review Specialty Diagnoses / Procedures Referred By Danyell stinson Referred To Contact Procedures Breast Imaging Diagnostic Outside Reference Transcribed Order, Provider Referral ID Status Reason Start Date Expiration Date V isits Requested Visits Authorized [id number] Pending Review 09/06/2024 10/06/2025 1 1 Encounter Details Date Type Department Care Team (Late st Contact Info) Description 06/11/2019 Hospital Encounter [facility] [address] [place], [place] [phone] Social History Tobacco Use Types Packs/Day Years Used Date Smoking Tobacco: Former Smokeless Tobacco: Never Alcohol Use Standard Drinks/Week Comments No 0 (1 standard drink = 0.6 oz pur e alcohol) Comments Unknown Sex and Gender Information Value Date Recorded Sex Assigned at Not on file Legal Sex Female 2:03 AM SUPPORT GROUP MANAGER Gender Identity Female 09/29/2020 9:57 AM CDT Sexual Orientation Straight 09/29/2020 9: 57 AM CDT documented as of this encounter Plan of Treatment Not on file documented as of this encounter Procedures Procedure Name Priority Date/Time Associated Diagnosis Comments BREAST IMAGING MG DIAGNOSTIC OUTSIDE REFERENCE Routine 06/11/2019 12:00 AM SUPPORT GROUP MANAGER documented in this encounter Results * Breast Imaging Diagnostic Outside Reference (06/11/2019 12:00 AM SUPPORT GROUP MANAGER) Impressions [facility] - 09/06/2024 2:42 PM CDT These images are for Reference purposes only and have not been reviewed by [facility]. There will be no report generated by a [facility] Radiologist. Narrative RAD_M[facility]MO[facility] - 09/06/2024 2:42 PM CDT EXAMINATION: Images For Reference Purposes Only us Provider Transcribed Order IMG MAMMO PROCEDURES Final Result [facility] documented in this encounter Visit Diagnoses Not on filedocumented in this encounter Care Teams Machine Shop Apprentice Relationship Specialty Start Date End Date Felix Powell MD PCP - General 05/24/13 documented as of this encounter
--- OUTSIDE RECORDS SUMMARY | 2019-06-11 01:05 | XMS_ITS | Encounter Summary ---
Author Organization [facility] Healthcare Address [address] [place] [address] Care Team Providers Care Central Office Technician Name Role Phone Felix Powell MD Primary Care Provider [phone] Reason for Visit * Diagnostic Imaging (Routine) - Pending Review Specialty Diagnoses / Procedures Referred By Danyell stinson Referred To Contact Procedures Breast Imaging US Outside Reference Transcribed Order, Provider Referral ID Status Reason Start Date Expiration Date V isits Requested Visits Authorized [id number] Pending Review 09/06/2024 10/06/2025 1 1 Encounter Details Date Type Department Care Team (Late st Contact Info) Description 06/11/2019 12:05 AM NIKE ATHLETE Hospital Encounter [facility] ([facility]) [address] [place] [phone] Social History Tobacco Use Types Packs/Day Years Used Date Smoking Tobacco: Former Smokeless Tobacco: Never Alcohol Use Standard Drinks/Week Comments No 0 (1 standard drink = 0.6 oz pur e alcohol) Comments Unknown Sex and Gender Information Value Date Recorded Sex Assigned at Not on file Legal Sex Female 2:03 AM NIKE ATHLETE Gender Identity Female 09/29/2020 9:57 AM CDT Sexual Orientation Straight 09/29/2020 9: 57 AM CDT documented as of this encounter Plan of Treatment Not on file documented as of this encounter Procedures Procedure Name Priority Date/Time Associated Diagnosis Comments BREAST IMAGING US OUTSIDE REFERENCE Routine 06/11/2019 12:05 AM NIKE ATHLETE documented in this encounter Results * Breast Imaging US Outside Reference (06/11/2019 12:05 AM NIKE ATHLETE) Impressions RAD[facility]MO[facility] - 09/06/2024 2:42 PM CDT [...] on filedocumented in this encounter Care Teams Central Office Technician Relationship Specialty Start Date End Date Felix Powell MD PCP - General 05/24/13 documented as of this encounter
--- OUTSIDE RECORDS SUMMARY | 2020-02-29 | XMS_ITS | Encounter Summary ---
Author Organization [facility] Healthcare Address [address] [place] [address] Care Team Providers Care Concert Singer Name Role Phone Felix Powell MD Primary Care Provider [phone] Reason for Visit * Diagnostic Imaging (Routine) - Pending Review Specialty Diagnoses / Procedures Referred By Danyell stinson Referred To Contact Procedures Breast Imaging Diagnostic Outside Reference Transcribed Order, Provider Referral ID Status Reason Start Date Expiration Date V isits Requested Visits Authorized [id number] Pending Review 09/06/2024 10/06/2025 1 1 Encounter Details Date Type Department Care Team (Late st Contact Info) Description 02/29/2020 Hospital Encounter [facility] Radiology [facility] [address] [place], [place] [phone] Social History Tobacco Use Types Packs/Day Years Used Date Smoking Tobacco: Former Smokeless Tobacco: Never Alcohol Use Standard Drinks/Week Comments No 0 (1 standard drink = 0.6 oz pur e alcohol) Comments Unknown Sex and Gender Information Value Date Recorded Sex Assigned at Not on file Legal Sex Female 2:03 AM ANDROID ARCHITECT Gender Identity Female 09/29/2020 9:57 AM CDT [...] on filedocumented in this encounter Care Teams Concert Singer Relationship Specialty Start Date End Date Felix Powell MD PCP - General 05/24/13 documented as of this encounter
--- OUTSIDE RECORDS SUMMARY | 2020-03-01 | XMS_ITS | Encounter Summary ---
Author Organization [facility] Healthcare Address [address] [place] [address] Care Team Providers Care Demo Specialist Name Role Phone Felix Powell MD Primary Care Provider [phone] Reason for Visit * Diagnostic Imaging (Routine) - Pending Review Specialty Diagnoses / Procedures Referred By Danyell stinson Referred To Contact Procedures Breast Imaging US Outside Reference Transcribed Order, Provider Referral ID Status Reason Start Date Expiration Date V isits Requested Visits Authorized [id number] Pending Review 09/06/2024 10/06/2025 1 1 Encounter Details Date Type Department Care Team (Late st Contact Info) Description 03/01/2020 Hospital Encounter [facility] [address], [place] [id number] Social History Tobacco Use Types Packs/Day Years Used Date Smoking Tobacco: Former Smokeless Tobacco: Never Alcohol Use Standard Drinks/Week Comments No 0 (1 standard drink = 0.6 oz pur e alcohol) Comments Unknown Sex and Gender Information Value Date Recorded Sex Assigned at Not on file Legal Sex Female 2:03 AM MICROMATIC HONE OPERATOR Gender Identity Female 09/29/2020 9:57 AM [...] and have not been reviewed by [facility]. There will be no report generated by a [facility] Radiologist. Narrative [facility] - 09/06/2024 2:42 PM CDT EXAMINATION: Images For Reference Purposes Only us Provider Transcribed Order IMG MAMMO PROCEDURES Final Result [facility] documented in this encounter Visit Diagnoses Not on filedocumented in this encounter Care Teams Demo Specialist Relationship Specialty Start Date End Date Felix Powell MD PCP - General 05/24/13 documented as of this encounter
--- OUTSIDE RECORDS SUMMARY | 2023-07-28 09:02 | XMS_ITS | Continuity of Care Document ---
Author Organization [facility] Address [address] [place] [address] Phone Care Team Providers Care Manager Of Investigations Name Role Phone Bola TIDWELL, MARIO, Jimi Unavailable Unavailable Procedures Procedure Date Therapeutic Activities Therapeutic Activities Therapeutic Activities Therapeutic Activities Therapeutic Activities Neuromuscular Re-Ed Therapeutic Activities Neuromuscular Re-Ed Therapeutic Activities Neuromuscular Re-Ed Doc neg elder mal no plan PRES/ABSN URINE INCON ASSESS PT Evaluation Moderate Complexity Therapeutic Activities Neuromuscular Re-Ed Therapeutic Activities Neuromuscular Re-Ed Neuromuscular Re-Ed Doc neg elder mal no plan PRES/ABSN URINE INCON ASSESS PT Evaluation High Complexity Therapeutic Activities Advance Directives Directive Yes / No Effective Date File Name No Information Encounters Encounter Description Practice Location Reason(s) For Visit Diagnoses Date Provider Providers Copied on Encounter [facility] [address], [place], [place], [id number], tel:[phone] [place] No Information 4 Bola Krause. . [facility], [place], [place], [id number], [place] tel:[phone] [place] No Information 4 Klahn Jimi. . Referring Provider: Christen Orta [facility] [address], [place], [address]. tel:[phone] [facility], [address], [place], [place], [id number], [place] tel:[phone] [place] No Information 4 Klahn Jimi. . Referring Provider: Christen Orta [facility] [address], [place], [address]. tel:[phone] [facility] [address], [place], [place], [id number], [place] tel:[phone] [place] No Information 4 Klahn Jimi. . Referring Provider: Tasneem Orat [facility] [address], [place], [address]. tel:[phone] [facility] [address], [place], [place], [id number], [place] tel:[phone] [place] No Information 4 Klahn Jimi. . Referring Provider: Tasneem Orta [facility] [address], [place], [address]. tel:[phone] [facility] [address], [place], [place], [address], [place] tel:[phone] [place] No Information 3 Klahn Jimi. . Referring Provider: Tasneem Orta [facility] [address], [place], [address]. tel:[phone] [facility], [place], [place], [address], [place] tel:[phone] [place] No Information 3 Modglin Alex. . Referring Provider: Christen [address], [place], [address]. tel:[phone], [place], [place], [id number], tel:[phone] [place] No Information Dec-0 - 3 Klahn Jimi. . Referring Provider: Felix Powell [address] [place] [address] [address], [place], [address]. tel:[phone] [address], [place], [place], [id number], [place] tel:[phone] [place] No Information Dec-0 3 Klahn Jimi. . Referring Provider: Felix Powell [address] [place] [address] [address], [place], [address]. tel:[phone], [place], [place], [id number], [place] tel:[phone] [place] No Information Sep-1 3 Klahn Jimi. . Referring Provider: Felix Powell [address] [place] [address] [address], [place], [address]. tel:[phone], [place], [place], [id number], tel:[phone] [place] No Information Sep-0 3 Klahn Jimi. . Referring Provider: Felix Powell [address] [place] [address] [address], [place], [address]. tel:[phone], [place], [place], [id number], [place] tel:[phone] [place] No Information Dec-2 3 Klahn Jimi. . Referring Provider: Christen Orta[address] [place] [address] [address], [place], [address]. tel:[phone] Family History Family Member Type Diagnosis Age At Onset No Information Payers Payer name Insurance type Covered green party ID Roland rust(s) [employer] Medicare Replacement CI [id number] Social History Type Description Quantity Date Captured Comments Sex Female Smoking Status No Information Chief Complaint And Reason For Visit No Information Reason For Referral Reason For Referral No Information Plan Of Treatment Date Type Action Status Referral Ordered: Referrals: Specialist. Evaluate and Treat (related to Adjustment disorder with depressed mood) ordered Referral Ordered: Depression: Depression management program timeframe: 1 Day. (related to Depression) ordered Referral Ordered: Clinical Psychology (related to Depression) ordered Referral Ordered: Referrals: Specialist. Evaluate and Treat (related to Adjustment disorder with depressed mood) ordered Referral Ordered: Depression: Depression management program timeframe: 1 Day. (related to Depression) ordered Referral Ordered: Clinical Psychology (related to Depression) ordered History Of Present Illness Encounter Date Complaint History Of Prese nt Illness No Information Functional Status Date Functional Assessmen t No Information Instructions Date Instruction Additional Infor mation Giving encouragement to exercise Related to Overweight Giving encouragement to exercise Related to Overweight Giving encouragement to exercise Related to Overweight Giving encouragement to exercise Related to Overweight Assessments Type Assessment Date No Information Patient Care Teams Name Effective Dates (start - stop) Status Members No Information
--- OUTSIDE RECORDS SUMMARY | 2025-01-07 07:59 | XMS_ITS | Continuity of Care Document ---
Author Organization [facility] Address [address] [place] [address] Phone Care Team Providers Care Locomotive Inspector Name Role Phone Manolo Singh MD Unavailable Unavailabl e Allergies, Adverse Reactions, Alerts Substance Reaction Status Criticality IODINE HivesHives Active No Information Medications Medication Instructions Dosage Effective Dates (start - stop) Status Comments OneTouch Verio test strips - Active levothyroxine 125 mcg tablet - Active Jardiance 25 mg tablet TAKE 1 TABLET BY MOUTH DAILY - Active montelukast 10 mg tablet TAKE 1 TABLET BY MOUTH AT BEDTIME - Active escitalopram 20 mg tablet TAKE 1 TABLET BY MOUTH DAILY - Active Procedures Procedure Date REMOVE TUNNELED CVC Radiation Exposure Documented To Be Coded Removal tunneled cv cath Removal tunneled cv cath Replace tunneled cv cath Fluoroguide for vein device Mod sed same phys/qhp 5/>yrs MOD SED BY OR SUP BY PHYSICIAN REPLACE TUNNELED CV CATH FLUORO GUIDE CENTRAL VENOUS ACCESS DEVIC E Sterile Barrier Technique Followed Radiation Exposure Documented To Be Coded Replace tunneled cv cath Fluoroguide for vein device Mod sed same phys/qhp 5/>yrs Cath impl vasc access portal Advance Directives Directive Yes / No Effective Date File Name No Information Encounters Encounter Description Practice Location Reason(s) For Visit Diagnoses Date Provider Providers Copied on Encounter [facility], [address] [place] [address], [id number], [place] tel:[phone] [facility] No Information Singh Manolo. [address] [place] [address], [id number], [place]. tel:[phone] [facility], [address] [place] [address], [id number], [place] tel:[phone] [facility] Singh Manolo. [address] [place] [address], [id number], [place]. tel:[phone] Referring Provider: Álvaro Ward, [address] [place] [address], [address]. tel:[phone] [facility], [address] [place] [address], [id number], [place] tel:[phone] [facility] Singh Manolo. [address] [place] [address], [id number], [place]. tel:[phone] Referring Provider: Álvaro Ward, [address] [place] [address], [id number]. tel:[phone] [facility], [address] [place] [address], [id number], [place] tel:[phone] [facility] Singh Manolo. [address] [place] [address], [id number], [place]. tel:[phone] Referring Provider: Álvaro Ward, [address] [place] [address], [id number]. tel:[phone] [facility], [address] [place] [address], [id number], [place] tel:[phone] [facility] Singh Manolo. [address] [place] [address], [id number], [place]. tel:[phone] Referring Provider: Álvaro Ward, [address] [place] [address], [id number]. tel:[phone] As per patient privacy policy some of the clinical information may not be visible. Family History Family Member Type Diagnosis Age At Onset No Information Payers Payer name Insurance type Covered democrat ID Roland rust(s) [employer] Medicare Complete CI [id number] Social History Type Description Quantity Date Captured Comments Sex Female Smoking Status No Information Gender Identity Female Chief Complaint And Reason For Visit No Information Reason For Referral Reason For Referral No Information Plan Of Treatment Date Type Action Status Future Order: Radiology Order Up per Body Flouroscopy ([id number]), Ordered on: Ordered History Of Present Illness Encounter Date Complaint History Of Prese nt Illness No Information Functional Status Date Functional Assessmen t No Information Instructions Date Instruction Additional Infor mation No Information Assessments Type Assessment Date No Information Patient Care Teams Name Effective Dates (start - stop) Status Members No Information
[2025-03-01 17:18] LABS: MALB Creatinine Ratio 55.3 mg/g (0-30)
--- OUTSIDE RECORDS SUMMARY | 2025-03-01 17:55 | XMS_ITS | Clinical Summary ---
Author Organization [facility] Address [facility] [place] [address] Care Team Providers Care Medical Transcriptionist Name Role Phone Felix Powell MD Primary Care Provider [phone] Allergies Active Allergy Reactions Criticality Noted Date [...] Blood Gluc Sensor (FREESTYLE ASHA 2 SENSOR) [facility] see administration instructions. 3 Active BANOPHEN 50 MG Cap capsule 2 Active glimepiride (AMARYL) 2 MG tablet Take 1 tablet (2 mg total) by mouth daily with breakfast. 2 Active folic acid (FOLVITE) 1 MG tablet Take 1 tablet (1 mg total) by mouth daily. Active Active Problems Problem Noted Date Diagnosed Date Sacroiliitis 04/19/2022 Overview (04/19/2022): Added automatically from request for surgery [id number] Social History Tobacco Use Types Packs/Day Years [...] 1-dose 75+ series) 11/05/2019 COVID-19 Vaccine ( - season) 2025 03/06/2022, 08/16/2021, 03/13/2021, Additional history exists Influenza Adult (#1) 2025 01/25/2019, 01/06/2017, 02/04/2016, Additional history exists Hepatitis A Vaccines Aged Out No long er eligible based on patient's age to complete this topic Meningococcal B Vaccine Aged Out No l onger eligible based on patient's age to complete this topic Meningococcal Vaccine Aged Out No raine juma eligible based on patient's age to complete this topic RSV Immunizations Under 20 Months Aged Out No longer eligible based on patient's age to complete this topic Insurance [facility] [employer] [employer] BLUE [employer]IELD MEDICARE Care Teams Medical Transcriptionist Relationship Specialty Start Date End Date Felix Powell MD [address] [place] [address] PCP - General INTERNAL MEDICINE 03/15/22
--- OUTSIDE RECORDS SUMMARY | 2025-03-01 17:55 | XMS_ITS | Clinical Summary ---
Author Organization [facility] [place] [address] Address [address] [place] [address] Care Team Providers Care Engineer Rf Deployment Name Role Phone Felix Powell MD Primary Care Provider [phone] Allergies Active Allergy Reactions Criticality Noted Date [...] 1 tablet (137 mcg total) by mouth window trimmer apprentice before breakfast Active buPROPion XL (WELLBUTRIN XL) [...] mg SL tabletIndications :Coronary artery disease involving [place] coronary artery of [place] heart without angina pectoris Place 1 tablet [...] extended release tabletIndications :Coronary artery disease involving [place] coronary artery of [place] heart without angina pectoris,Essentia l hypertension Take [...] smoker 02/23/2021 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lving [place] coronary artery of [place] heart without angina pectoris 06/19/2017 History of coronary artery stent placement 06/19 Encounters Date Type Department Care Team Description 12/29/2024 Telephone [facility] Cardiology [address] [address] [address] [place] [address] Paulo Veloz MD 12/13/2024 10:30 AM CDT Ancillary Procedure [facility] Cardiology at [address] [place] [phone] History of atrial fibrillation 12/13/2024 10:00 AM CDT Office Visit [facility] Cardiology at [address] [phone] Paulo Veloz MD Coronary artery disease involving [place] coronary artery of [place] heart without angina pectoris (Primary Dx); Essential hypertension; Hyperlipidemia LDL goal <70; LBBB (left bundle branch block); Pulmonary hypertension (HCC); History of atrial fibrillation 12/13/2024 Orders Only [facility] Cardiology at [address] [phone] Provider, MD Cheryle from Last 3 Months Medical History Medical [...] on file Legal Sex Female 2:03 AM EXHAUST TENDER Gender Identity Female 09/29/2020 9:57 AM CDT [...] phy Narrative 12/30/2024 5:37 PM CDT AMBULATORY ANALYTICAL CHEMISTRY TEACHER REPORT Patient Name: Allyson Tello Date of [...] was used to complete this document, therefore, counter former variances may occur. Paulo Veloz MD, [facility] 12/30/24 Procedure Note Paulo Veloz MD - 12/30/2024 AMBULATORY ANALYTICAL CHEMISTRY TEACHER REPORT Patient Name: Allyson Tello Date of [...] software was used to complete this document, therefore,counter former variances may occur. Paulo Veloz MD, [facility] 12/30/24 Paulo Veloz MD [facility] Final Result from Last 3 Months Insurance [facility] MEDICARE ADVANTAGE [facility] MEDIC[facility] Address: [address] [address] [place] [address] [facility] MEDICARE ADVANTAGE [facility] MEDIC[facility] Address: [address] [address] [place] [address] Care Teams Engineer Rf Deployment Relationship Specialty Start Date End Date Felix Powell MD PCP - General 05/24/13
[2025-03-01 18:00] LABS: Alanine Aminotransferase 44 U/L (6-35); Albumin Level 4.1 g/dL (3.5-5.1); Alkaline Phosphatase 87 U/L (38-126); Anion Gap 9 mmol/L (4-12); Aspartate Amino Transferase 38 U/L (14-36); Bilirubin,Total 1.0 mg/dL (0.2-1.3); Blood Urea Nitrogen 32 mg/dL (7-17); Calcium 9.6 mg/dL (8.4-10.2); Carbon Dioxide 22 mmol/L (22-30); Chloride 107 mmol/L (98-107); Cholesterol 160 mg/dL (0-200); Estimated Glomerular Filt Rate 29; Glucose 146 mg/dL (65-110); HDL Direct 66 mg/dL; Potassium 4.0 mmol/L (3.4-5.0); Sodium 138 mmol/L (137-145); Total Protein 7.2 g/dL (6.3-8.2); Triglycerides 162 mg/dL (<150)
[2025-03-01 18:22] LABS: Free T4 Free Thyroxine 2.74 ng/dL (0.78-2.19)
[2025-03-01 18:24] LABS: Hemoglobin A1C 5.0 % (<5.7)
[2025-03-01 18:37] LABS: Thyroid Stimulating Hormone < 0.015 uIU/mL (0.465-4.680)
== END 2025-03-01 16:35 | disposition home or self-care (01) ==
PROVIDERS: PCP Internal Medicine; Visit Provider Internal Medicine
DX: E11.69 Type 2 diabetes mellitus with other specified complication (principal); E55.9 Vitamin D deficiency, unspecified; E03.9 Hypothyroidism, unspecified; E78.2 Mixed hyperlipidemia; I10 Essential (primary) hypertension
CPT/HCPCS: 36415; 80053; 80061; 82043; 82306; 83036; 84439; 84443

== ENCOUNTER 2025-03-10 15:22 | Outpatient (CLI) | payer MEDICARE, SELFPAY ==
--- OUTSIDE RECORDS SUMMARY | 2019-01-17 23:00 | XMS_ITS | Encounter Summary ---
Author Organization [facility] Healthcare Address [address] [place] [address] Care Team Providers Care Medicare Coordinator Name Role Phone Felix Powell MD Primary Care Provider [phone] Reason for Visit * Diagnostic Imaging (Routine) - Pending Review Specialty Diagnoses / Procedures Referred By Danyell stinson Referred To Contact Procedures Breast Imaging Screening Outside Reference Transcribed Order, Provider Referral ID Status Reason Start Date Expiration Date V isits Requested Visits Authorized [id number] Pending Review 09/06/2024 10/06/2025 1 1 Encounter Details Date Type Department Care Team (Late st Contact Info) Description 01/18/2019 Hospital Encounter [facility] Radiology [facility] [address], [place] [id number] Social History Tobacco Use Types Packs/Day Years Used Date Smoking Tobacco: Former Smokeless Tobacco: Never Alcohol Use Standard Drinks/Week Comments No 0 (1 standard drink = 0.6 oz pur e alcohol) Comments Unknown Sex and Gender Information Value Date Recorded Sex Assigned at Not on file Legal Sex Female 2:03 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 Radiology. There will be no report generated by a [facility] Radiologist. Narrative [facility] - 09/06/2024 2:42 PM CDT EXAMINATION: Images For Reference Purposes Only us Provider Transcribed Order IMG MAMMO PROCEDURES Final Result [facility] documented in this encounter Visit Diagnoses Not on filedocumented in this encounter Care Teams Medicare Coordinator Relationship Specialty Start Date End Date Felix Powell MD PCP - General 05/24/13 documented as of this encounter
--- OUTSIDE RECORDS SUMMARY | 2019-01-26 23:00 | XMS_ITS | Encounter Summary ---
Author Organization [facility] Healthcare Address [address] [place] [address] Care Team Providers Care Certified Physician'S Assistant Name Role Phone Felix Powell MD Primary Care Provider [phone] Reason for Visit * Diagnostic Imaging (Routine) - Pending Review Specialty Diagnoses / Procedures Referred By Danyell stinson Referred To Contact Procedures Breast Imaging Diagnostic Outside Reference Transcribed Order, Provider Referral ID Status Reason Start Date Expiration Date V isits Requested Visits Authorized [id number] Pending Review 09/06/2024 10/06/2025 1 1 Encounter Details Date Type Department Care Team (Late st Contact Info) Description 01/27/2019 Hospital Encounter [facility]iology [facility] [address] [place] [address] Social History Tobacco Use Types Packs/Day Years Used Date Smoking Tobacco: Former Smokeless Tobacco: Never Alcohol Use Standard Drinks/Week Comments No 0 (1 standard drink = 0.6 oz pur e alcohol) Comments Unknown Sex and Gender Information Value Date Recorded Sex Assigned at Not on file Legal Sex Female 2:03 AM VENDING TECHNICIAN Gender Identity Female 09/29/2020 9:57 AM CDT Sexual Orientation Straight 09/29/2020 9: 57 AM CDT documented as of this encounter Functional Status * BP Location Answer Date of Assessment Author Right arm 03/10/2025 2:01 PM VENDING TECHNICIAN Phyllis Iraheta MA * BP Location Answer Date of Assessment Author Right arm 03/10/2025 2:01 PM VENDING TECHNICIAN Phyllis Iraheta MA documented as of this encounter Plan of Treatment Not on file documented as of this encounter Procedures Procedure Name Priority Date/Time Associated Diagnosis Comments BREAST IMAGING MG DIAGNOSTIC OUTSIDE REFERENCE Routine 01/27/2019 12:00 AM CDT documented in this encounter Results * Breast Imaging Diagnostic Outside Reference (01/27/2019 12:00 AM CDT) Impressions [facility] - 09/06/2024 2:42 PM CDT These images are for Reference purposes only and have not been reviewed by [facility] Radiology. There will be no report generated by a [facility] Radiologist. Narrative RAD_M[facility]MO[facility] - 09/06/2024 2:42 PM CDT EXAMINATION: Images For Reference Purposes Only us Provider Transcribed Order IMG MAMMO PROCEDURES Final Result [facility] documented in this encounter Visit Diagnoses Not on filedocumented in this encounter Care Teams Certified Physician'S Assistant Relationship Specialty Start Date End Date Felix Powell MD PCP - General 05/24/13 documented as of this encounter
--- OUTSIDE RECORDS SUMMARY | 2019-06-11 | XMS_ITS | Encounter Summary ---
Author Organization [facility] Healthcare Address [address] [place] [address] Care Team Providers Care Press Tender Long Goods Name Role Phone Felix Powell MD Primary Care Provider [phone] Reason for Visit * Diagnostic Imaging (Routine) - Pending Review Specialty Diagnoses / Procedures Referred By Danyell stinson Referred To Contact Procedures Breast Imaging Diagnostic Outside Reference Transcribed Order, Provider Referral ID Status Reason Start Date Expiration Date V isits Requested Visits Authorized [id number] Pending Review 09/06/2024 10/06/2025 1 1 Encounter Details Date Type Department Care Team (Late st Contact Info) Description 06/11/[address] En[address] [facility] [address] [place] [address] Social History Tobacco Use Types Packs/Day Years Used Date Smoking Tobacco: Former Smokeless Tobacco: Never Alcohol Use Standard Drinks/Week Comments No 0 (1 standard drink = 0.6 oz pur e alcohol) Comments Unknown Sex and Gender Information Value Date Recorded Sex Assigned at Not on file Legal Sex Female 2:03 AM DIRECTOR OF WOMEN'S SERVICES Gender Identity Female 09/29/2020 9:57 AM CDT Sexual Orientation Straight 09/29/2020 9: 57 AM CDT documented as of this encounter Functional Status * BP Location Answer Date of Assessment Author Right arm 03/10/2025 2:01 PM DIRECTOR OF WOMEN'S SERVICES Phyllis Iraheta MA * BP Location Answer Date of Assessment Author Right arm 03/10/2025 2:01 PM DIRECTOR OF WOMEN'S SERVICES Phyllis Iraheta MA documented as of this encounter Plan of Treatment Not on file documented as of this encounter Procedures Procedure Name Priority Date/Time Associated Diagnosis Comments BREAST IMAGING MG DIAGNOSTIC OUTSIDE REFERENCE Routine 06/11/2019 12:00 AM DIRECTOR OF WOMEN'S SERVICES documented in this encounter Results * Breast Imaging Diagnostic Outside Reference (06/11/2019 12:00 AM DIRECTOR OF WOMEN'S SERVICES) Impressions [facility] - 09/06/2024 2:42 PM CDT [...] on filedocumented in this encounter Care Teams Press Tender Long Goods Relationship Specialty Start Date End Date Felix Powell MD PCP - General 05/24/13 documented as of this encounter
--- OUTSIDE RECORDS SUMMARY | 2019-06-11 00:05 | XMS_ITS | Encounter Summary ---
Author Organization [facility] Healthcare Address [address] [place] [address] Care Team Providers Care Engineering Supervisor Name Role Phone Felix Powell MD Primary Care Provider [phone] Reason for Visit * Diagnostic Imaging (Routine) - Pending Review Specialty Diagnoses / Procedures Referred By Danyell stinson Referred To Contact Procedures Breast Imaging US Outside Reference Transcribed Order, Provider Referral ID Status Reason Start Date Expiration Date V isits Requested Visits Authorized [id number] Pending Review 09/06/2024 10/06/2025 1 1 Encounter Details Date Type Department Care Team (Late st Contact Info) Description 06/11/2019 12:05 AM BREWMASTER Hospital Encounter [facility]iology [facility]) [address] [place] [phone] Social History Tobacco Use Types Packs/Day Years Used Date Smoking Tobacco: Former Smokeless Tobacco: Never Alcohol Use Standard Drinks/Week Comments No 0 (1 standard drink = 0.6 oz pur e alcohol) Comments Unknown Sex and Gender Information Value Date Recorded Sex Assigned at Not on file Legal Sex Female 2:03 AM BREWMASTER Gender Identity Female 09/29/2020 9:57 AM CDT Sexual Orientation Straight 09/29/2020 9: 57 AM CDT documented as of this encounter Functional Status * BP Location Answer Date of Assessment Author Right arm 03/10/2025 2:01 PM BREWMASTER Phyllis Iraheta MA * BP Location Answer Date of Assessment Author Right arm 03/10/2025 2:01 PM BREWMASTER Phyllis Iraheta MA documented as of this encounter Plan of Treatment Not on file documented as of this encounter Procedures Procedure Name Priority Date/Time Associated Diagnosis Comments BREAST IMAGING US OUTSIDE REFERENCE Routine 06/11/2019 12:05 AM BREWMASTER documented in this encounter Results * Breast Imaging US Outside Reference (06/11/2019 12:05 AM BREWMASTER) Impressions [facility] - 09/06/2024 2:42 PM CDT These images are for Reference purposes only and have not been reviewed by [facility]. There will be no report generated by a [facility] Radiologist. Narrative RAD_M[facility]MO[facility] - 09/06/2024 2:42 PM CDT EXAMINATION: Images For Reference Purposes Only us Provider Transcribed Order IMG MAMMO PROCEDURES Final Result [facility] documented in this encounter Visit Diagnoses Not on filedocumented in this encounter Care Teams Engineering Supervisor Relationship Specialty Start Date End Date Felix Powell MD PCP - General 05/24/13 documented as of this encounter
--- OUTSIDE RECORDS SUMMARY | 2020-02-28 23:00 | XMS_ITS | Encounter Summary ---
Author Organization [facility] Healthcare Address [address] [place] [address] Care Team Providers Care Housekeeping Department Worker Name Role Phone Felix Powell MD Primary Care Provider [phone] Reason for Visit * Diagnostic Imaging (Routine) - Pending Review Specialty Diagnoses / Procedures Referred By Danyell stinson Referred To Contact Procedures Breast Imaging Diagnostic Outside Reference Transcribed Order, Provider Referral ID Status Reason Start Date Expiration Date V isits Requested Visits Authorized [id number] Pending Review 09/06/2024 10/06/2025 1 1 Encounter Details Date Type Department Care Team (Late st Contact Info) Description 02/29/2020 Hospital Encounter [facility] [address] [place], [place] [id number] Social History Tobacco Use Types Packs/Day Years Used Date Smoking Tobacco: Former Smokeless Tobacco: Never Alcohol Use Standard Drinks/Week Comments No 0 (1 standard drink = 0.6 oz pur e alcohol) Comments Unknown Sex and Gender Information Value Date Recorded Sex Assigned at Not on file Legal Sex Female 2:03 AM 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 There will be no report generated by a [facility] Radiologist. Narrative [facility] - 09/06/2024 2:42 PM CDT EXAMINATION: Images For Reference Purposes Only us Provider Transcribed Order IMG MAMMO PROCEDURES Final Result [facility] documented in this encounter Visit Diagnoses Not on filedocumented in this encounter Care Teams Housekeeping Department Worker Relationship Specialty Start Date End Date Felix Powell MD PCP - General 05/24/13 documented as of this encounter
--- OUTSIDE RECORDS SUMMARY | 2020-02-29 23:00 | XMS_ITS | Encounter Summary ---
Author Organization [facility] Healthcare Address [address] [place] [address] Care Team Providers Care Datapower Consultant Name Role Phone Felix Powell MD Primary Care Provider [phone] Reason for Visit * Diagnostic Imaging (Routine) - Pending Review Specialty Diagnoses / Procedures Referred By Danyell stinson Referred To Contact Procedures Breast Imaging US Outside Reference Transcribed Order, Provider Referral ID Status Reason Start Date Expiration Date V isits Requested Visits Authorized [id number] Pending Review 09/06/2024 10/06/2025 1 1 Encounter Details Date Type Department Care Team (Late st Contact Info) Description 03/01/2020 Hospital Encounter [facility]iology [facility] [address] [place], [place] [phone] Social History Tobacco Use Types Packs/Day Years Used Date Smoking Tobacco: Former Smokeless Tobacco: Never Alcohol Use Standard Drinks/Week Comments No 0 (1 standard drink = 0.6 oz pur e alcohol) Comments Unknown Sex and Gender Information Value Date Recorded Sex Assigned at Not on file Legal 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 Gender Identity Female 09/29/2020 9:57 AM CDT Sexual Orientation Straight 09/29/2020 9: 57 AM CDT documented as of this encounter Functional Status * BP Location Answer Date of Assessment Author Right arm 03/10/2025 2:01 PM FIELD RING ASSEMBLER Phyllis Iraheta MA * BP Location Answer Date of Assessment Author Right arm 03/10/2025 2:01 PM FIELD RING ASSEMBLER Phyllis Iraheta MA documented as of this encounter Plan of Treatment Not on file documented as of this encounter Procedures Procedure Name Priority Date/Time Associated Diagnosis Comments BREAST IMAGING US OUTSIDE REFERENCE Routine 03/01/2020 12:00 AM CDT documented in this encounter Results * Breast Imaging US Outside Reference (03/01/2020 12:00 AM CDT) Impressions [facility] - 09/06/2024 2:42 PM CDT These images are for Reference purposes only and have not been reviewed by [facility] Radiology. There will be no report generated by a [facility] Radiologist. Narrative [facility] - 09/06/2024 2:42 PM CDT EXAMINATION: Images For Reference Purposes Only us Provider Transcribed Order IMG MAMMO PROCEDURES Final Result [facility] documented in this encounter Visit Diagnoses Not on filedocumented in this encounter Care Teams Datapower Consultant Relationship Specialty Start Date End Date Felix Powell MD PCP - General 05/24/13 documented as of this encounter
--- OUTSIDE RECORDS SUMMARY | 2025-03-10 14:15 | XMS_ITS | Encounter Summary ---
Author Organization [facility] Address [address] [place] [address] Care Team Providers Care Application Integration Engineer Name Role Phone Felix Powell MD Primary Care Provider [phone] Reason for Visit * Reason Comments Coronary Artery Disease Encounter Details Date Type Department Care Team (Late st Contact Info) Description 03/10/2025 2:15 PM SECURITIES TRADER Office Visit [facility] Cardiology at [address] [place] [address] Paulo Veloz MD [address] [facility] [place] [address] [facility] [place] [address] [place] [address] Coronary artery disease involving [place] coronary artery of [place] heart without angina pectoris (Primary Dx); Essential hypertension; History of atrial fibrillation; Hyperlipidemia LDL goal <70; LBBB (left bundle branch block); Pulmonary hypertension (HCC) Social History Tobacco Use Types Packs/Day Years Used Date Smoking Tobacco: Former Smokeless Tobacco: Never Alcohol Use Standard Drinks/Week Comments No 0 (1 standard drink = 0.6 oz pur e alcohol) Comments Unknown Sex and Gender Information Value Date Recorded Sex Assigned at Not on file Legal Sex Female 2:03 AM SECURITIES TRADER Gender Identity Female 09/29/2020 9:57 AM CDT Sexual Orientation Straight 09/29/2020 9: 57 AM CDT documented as of this encounter Last Filed Vital Signs Vital Sign Reading Time Taken Comments Blood Pressure 102/58 03/10/2025 2:01 PM SECURITIES TRADER Pulse 102 03/10/2025 2:01 PM SECURITIES TRADER Temperature - - Respiratory Rate - - Oxygen Saturation 94% 03/10/2025 2:01 PM SECURITIES TRADER Inhaled Oxygen Concentration - - Weight 68.9 kg (151 lb 14.4 oz) 03/10/2025 2:01 PM SECURITIES TRADER Height 170.2 cm (5' 7) 03/10/2025 2:01 PM SECURITIES TRADER Body Mass Index 23.79 03/10/2025 2:01 PM SECURITIES TRADER documented in this encounter Functional Status * BP Location Answer Date of Assessment Author Right arm 03/10/2025 2:01 PM SECURITIES TRADER Phyllis Iraheta MA * BP Location Answer Date of Assessment Author Right arm 03/10/2025 2:01 PM SECURITIES TRADER Phyllis Iraheta MA documented as of this encounter Progress Notes * Paulo Veloz MD - 03/10/2025 2:15 PM CST [facility] Cardiology [address] [place] [address] Date of Visit: 03/10/2025 Patient ID: Allyson Tello 1945 Chief Complaint: Allyson Tello is a 79 y.o. female with a history of coronary artery disease coming to the office for follow-up after she was evaluated for chest pain. History of Present Illness: Allyson Tello is a 79 y.o. femalewho presents for follow up of coronary artery disease with previous percutaneous revascularization. Patient has coronary artery disease dating back to 2001. In June of 2009 she underwent interventional revascularization of the LAD involving 2 bare metal stents pr oximally down to the midportion of the artery. She has done well since then. The patient sees me today for scheduled follow-up. She did indicate that she was in the hospital last month with GI bleeding. The patient went on a cruise with her they were in [place] on a cruise ship and started to feel on well she went to see a Clinic and then came back to the [place]. She was hospitalized here with both hematemesis and melanotic stool. Clopidogrel was discontinued and aspirin was reduced to 81 mg per day endoscopically she was found to have multiple gastric ulcers 1 of which had stigmata of recent bleeding. She says she had to receive 2 units of packed red blood cells. 06/27/2020 office visit: She returns to the office today for scheduled annual follow-up. She has not had any problems or symptoms of ischemia since the PCI as described above 11 years ago. She has had no further GI bleeding issues since the incident that I mentioned above as well. She is fully active and does not describe any ischemic symptoms. She is enjoying residential and traveling quite a bitwith her 09/28/2020 hospital follow-up with [facility]: She presented to [facility] on 09/12/2020 with complaint of chest pain. She thought it was similar to the pain she had with her previous MS. ECG showed achronic left bundle-branch block. Troponins were negative. Echo showed EF 60-65% and grade [address] Veloz saw her in consultation. They discussed repeating cardiac catheterization vs stress test. The patient wished to pursue the stress test and it showed no definite ischemia orinfarct and normal LVEF. Today she reports she has had 1 episode of mild chest pain since dischargewhich was actually relieved when she took an antacid. She states her usual blood pressure checks athome range systolic 120s, diastolic 70s. POC lipid panel performed in the office today shows TC 222, HDL >100, TG 188, LDL 94, glucose 198. Follow-up note 02/23/2021: She has some dizziness and lightheadedness whenever she stands up. She has not passed out. She denies any chest pain. She does have dyspnea with activity such as walking around the house. No paroxysmal nocturnal dyspnea orthopnea. She describes a little bit of swelling attimes. She wears compression stockings occasionally Follow-up note 12/26/2023 From a cardiac perspective she is doing okay. She has some trivial lower extremity swelling but otherwise no chest pain, shortness of breath, significant bruising behind paroxysmal nocturnal dyspnea, orthopnea, palpitations Follow-up note 09/03/2024: She admits to being depressed, eating habits have change in not eating as much. She has lost about 20 lb since last visit here. She is a little dizzy upon standing. She denies any chest pain, syncope, unusual shortness breath, paroxysmal nocturnal dyspnea, orthopnea, edema palpitations Follow-up note 12/13/2024: She returns today following hospitalization. She was hospitalized for diverticulitis and then shortly thereafter pancreatitis. She was noted to be in atrial fibrillation with rapid ventricular response thought to be secondary to stress of pancreatitis. She did convert sinus rhythm on diltiazem drip. She was then transitioned to metoprolol for which she remains. She doesfeel weak and tired. She is now undergoing dialysis. She has some lower extremity swelling but no chest pain, shortness breath, syncope, presyncope, paroxysmal nocturnal dyspnea, orthopnea or palpitations. Follow-up note 03/10/2025: She feels poorly. She feels weak, had a black stool recently, she feels nauseated. She states she feels similar as to when she went into the hospital with atrial fibrillation. She denies any syncope, chest pain, shortness breath, paroxysmal nocturnal dyspnea or orthopnea. Does not feel palpitations. Records that I personally reviewed on the day of this visit include: (the interpretation is outlined in the HPI above) 06/27/2020 office note, above-mentioned Hospital records and the POC lipid test from today. I have also reviewed: allergies, current medications, past family history, past medical history, past social history, past surgical history and problem list Review of Systems Constitutional: Negative for diaphoresis, fever, malaise/fatigue, weight gain and weight loss. HENT: Negative for hearing loss. Eyes: Negative for visual disturbance. Cardiovascular: Positive for leg swelling. Negative for chest pain, claudication, dyspnea on exertion, orthopnea, palpitations, paroxysmal nocturnal dyspnea and syncope. Respiratory: Negative for cough, hemoptysis, shortness of breath, snoring and wheezing. Endocrine: Negative for polydipsia. Hematologic/Lymphatic: Does not bruise/bleed easily. Skin: Negative for poor wound healing and rash. Musculoskeletal: Negative for joint pain and myalgias. Gastrointestinal: Negative for heartburn, nausea and vomiting. Genitourinary: Negative for hematuria. Neurological: Negative for dizziness, headaches and light-headedness. Psychiatric/Behavioral: Negative for depression. The patient is not nervous/anxious. Vital Signs: BP 102/58 (BP Location: Right arm, Patient Position: Sitting) Pulse 102 Ht 170.2 cm (5' 7) Wt 68.9 kg (151 lb 14.4 oz) SpO2 94% BMI 23.79 kg/m?? Physical Exam Vitals reviewed. Constitutional: General: She is not in acute distress. Appearance: She is well-developed. HENT: Head: Normocephalic and atraumatic. Nose: Nose normal. Eyes: General: No scleral icterus. Conjunctiva/sclera: Conjunctivae normal. Pupils: Pupils are equal, round, and reactive to light. Neck: Vascular: No JVD. Trachea: No tracheal deviation. Cardiovascular: Rate and Rhythm: Regular rhythm. Tachycardia present. Heart sounds: Normal heart sounds. No murmur heard. Pulmonary: Effort: Pulmonary effort is normal. No respiratory distress. Breath sounds: Normal breath sounds. Abdominal: General: Bowel sounds are normal. Palpations: Abdomen is soft. Tenderness: There is no abdominal tenderness. Musculoskeletal: Cervical back: Normal range of motion. Skin: General: Skin is warm and dry. Neurological: Mental Status: She is alert and oriented to person, place, and time. Psychiatric: Mood and Affect: Mood normal. Allergies Allergen Reactions Iodine And Iodide Containing Products Morphine Current Outpatient Medications: acetaminophen (TYLENOL) 325 mg tablet, Take 2 tablets (650 mg total) by mouth every 6 (six) hours as needed for pain, Disp: , Rfl: aspirin 81 mg tablet, Take 1 tablet (81 mg total) by mouth daily., Disp: 30 tablet, Rfl: 11 baclofen (LIORESAL) 5 mg tablet, TAKE 1 TABLET BY MOUTH THREE TIMES DAILY NEEDED FOR MUSCLE SPASM, Disp: , Rfl: buPROPion XL (WELLBUTRIN XL) 300 mg 24 hr tablet, Take 1 tablet (300 mg total) by mouth daily, Disp: , Rfl: cyanocobalamin, vitamin B-12, (VITAMIN B-12 ORAL), Take by mouth, Disp: , Rfl: empagliflozin-linagliptin 10-5 mg tablet, Take 1 tablet by mouth daily, Disp: , Rfl: escitalopram (LEXAPRO) 20 mg tablet, Take 1 tablet (20 mg total) by mouth daily, Disp: , Rfl: folic acid (FOLVITE) 1 mg tablet, Take 1 tablet (1 mg total) by mouth daily, Disp: , Rfl: gabapentin (NEURONTIN) 100 mg capsule, Take 1 capsule (100 mg total) by mouth 2 (two) times a day, Disp: , Rfl: levothyroxine (SYNTHROID) 137 mcg tablet, Take 1 tablet (137 mcg total) by mouth gas engine operator compressors before breakfast, Disp: , Rfl: linaGLIPtin (TRADJENTA) 5 mg tablet, Take 1 tablet (5 mg total) by mouth daily, Disp: , Rfl: metFORMIN XR (GLUCOPHAGE XR) 500 mg 24 hr tablet, Take 2 tablets (1,000 mg total) by mouth 2 (two) times a day, Disp: , Rfl: metoprolol XL (TOPROL-XL) 25 mg extended release tablet, Take 1 tablet (25 mg total) by mouth daily, Disp: 90 tablet, Rfl: 3 montelukast (SINGULAIR) 10 mg tablet, Take 1 tablet (10 mg total) by mouth nightly, Disp: , Rfl: nitroglycerin (NITROSTAT) 0.4 mg SL tablet, Place 1 tablet (0.4 mg total) under the tongue every 5 (five) minutes as needed for chest pain May repeat dose q 5 min, up to 3 doses total, Disp: 25 tablet, Rfl: [address] (PROTONIX) 40 mg EC tablet, Take 1 tablet (40 mg total) by mouth daily, Disp: , Rfl: predniSONE (DELTASONE) 5 mg tablet, , Disp: , Rfl: rosuvastatin (CRESTOR) 40 mg tablet, take 1 Tablet by oral route every day, Disp: 0, Rfl: 0 traMADoL (ULTRAM) 50 mg tablet, Take by mouth every 6 (six) hours as needed, Disp: , Rfl: No results found for: POTASSIUM, BUNSER, CREATININE, CHOL, TRIG, LDL, LDLCALC, HDL EKG 10/18/2024: Normal sinus rhythm, PACs, left bundle-branch block. Abnormal EKG EKG 10/10/2024: Atrial fibrillation with left bundle-branch block. Abnormal EKG EKG 03/10/2025: ST LBBB, abn ECG Echo 09/23/2024 Normal left ventricular systolic function. No focal [...] regurgitation. Mild pulmonic regurgitation. Normal sinus rhythm. Telemetry 12/30/2024 Underlying sinus rhythm average heart rate of 70 beats per minute. Low-frequency ventricular and supraventricular ectopy as detailed above No complex arrhythmia, heart block or pauses Assessment: Diagnoses and all orders for this visit: Coronary artery disease involving [place] coronary artery of [place] heart without angina pectoris (Primary) No clear anginal symptoms Essential hypertension At goal Hyperlipidemia LDL goal <70 At goal LDL 53 PMR (polymyalgia rheumatica) (CMS/HCC) (HCC) On steroid LBBB (left bundle branch block) Normal ejection fraction Chronic obstructive pulmonary disease, unspecified COPD type (HCC) Likely the cause of her shortness of breath Former smoker Pulmonary hypertension Moderate History of atrial fibrillation Noted while in the hospital during her acute illness episode Plan/Recommendations: EKG because of her weakness, history of atrial fibrillation. She continues to feel weak and with the black stools recently, concerning for anemia. She has been sent for a CBC through Dr. Wick' office. From my perspective, continue metoprolol because of the atrial fibrillation history. At least for now, continue aspirin but if she is found to be significantly anemic, could temporarily hold the aspirin especially for fear of upper GI bleed. Continue rosuvastatin for hyperlipidemia and coronary If PCP workup is unrevealing, could consider stress testing versus echocardiogram or both. She willcall if her symptoms do not improve despite other workup. Follow-up in 6 months or sooner as clinically indicated Paulo Veloz MD, [facility] This note is dictated and transcribed using m-spatial Direct Software. Lacquerer variancesmay occur. Despite proofreading, typographical errors may occur. RITIES TRADER documented in this encounter Plan of Treatment Not on file documented as of this encounter Procedures Procedure Name Priority Date/Time Associated Diagnosis Comments ECG 12-LEAD Routine 03/10/2025 2:20 PM SECURITIES TRADER History of atrial fibrillation documented in this encounter Results * ECG 12 lead (03/10/2025 2:20 PM SECURITIES TRADER) us Paulo Veloz MD ECG ORDERABLES Edited Re sult - Final documented in this encounter Visit Diagnoses Diagnosis Coronary artery disease involving [place] coronary artery of [place] heart without angina pectoris- Primary Essential hypertension Unspecified essential hypertension History of atrial fibrillation Personal history of other diseases of circulatory system Hyperlipidemia LDL goal <70 Other and unspecified hyperlipidemia LBBB (left bundle branch block) Other left bundle branch block Pulmonary hypertension (HCC) Other chronic pulmonary heart diseases documented in this encounter Care Teams Application Integration Engineer Relationship Specialty Start Date End Date Felix Powell MD PCP - General 05/24/13 documented as of this encounter
[2025-03-10 15:50] LABS: Hematocrit 35.5 % (37.0-47.0); Hemoglobin 11.0 g/dL (12.0-15.0); Immature Granulocyte Percent A 0.3 % (0-0.5); Lymphocytes Absolute Auto 1.72 K/mm3 (0.9-3.2); Mean Corpuscular HGB Conc 31.0 g/dl (32-36); Mean Corpuscular Hemoglobin 29.2 pg (26-34); Mean Corpuscular Volume 94.2 fl (80-100); Nucleated Red Blood Cells Absolute Auto 0.000 K/mm3 (0.0-0.012); Nucleated Red Blood Cells Perc 0.0 % (0.0-0.2); Platelet Count Result 193 k/mm3 (150-375); Red Blood Count 3.77 M/mm3 (4.2-5.4); White Blood Count 8.0 K/mm3 (4.5-10.0)
[2025-03-10 16:01] LABS: Anion Gap 7 mmol/L (4-12); Blood Urea Nitrogen 37 mg/dL (7-17); Calcium 10.4 mg/dL (8.4-10.2); Carbon Dioxide 25 mmol/L (22-30); Chloride 106 mmol/L (98-107); Estimated Glomerular Filt Rate 28; Glucose 114 mg/dL (65-110); Potassium 4.4 mmol/L (3.4-5.0); Sodium 138 mmol/L (137-145)
--- OUTSIDE RECORDS SUMMARY | 2025-03-10 20:54 | XMS_ITS | Clinical Summary ---
Author Organization [facility] [place] [address] Address [address] [place] [address] Care Team Providers Care Metal Welder Name Role Phone Felix Powell MD Primary Care Provider [phone] Allergies Active Allergy Reactions Criticality Noted Date [...] 1 tablet (137 mcg total) by mouth director of market research before breakfast Active buPROPion XL (WELLBUTRIN XL) [...] mg SL tabletIndications :Coronary artery disease involving [place] coronary artery of [place] heart without angina pectoris Place 1 tablet [...] extended release tabletIndications :Coronary artery disease involving [place] coronary artery of [place] heart without angina pectoris,Essentia l hypertension Take [...] smoker 02/23/2021 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lving [place] coronary artery of [place] heart without angina pectoris 06/19/2017 History of coronary artery stent placement 06/19 Encounters Date Type Department Care Team Description 03/10/2025 2:15 PM HEAD BOYS TENNIS COACH Office Visit [facility] Cardiology at [address] [place] [address] Paulo Veloz MD Coronary artery disease involving [place] coronary artery of [place] heart without angina pectoris (Primary Dx); Essential hypertension; History of atrial fibrillation; Hyperlipidemia LDL goal <70; LBBB (left bundle branch block); Pulmonary hypertension (HCC) 12/29/2024 Telephone [facility] Cardiology [address] [place] [phone] Paulo Veloz MD 12/13/2024 10:30 AM CDT Ancillary Procedure [facility] Cardiology at [address] [place] [address] History of atrial fibrillation 12/13/2024 10:00 AM CDT Office Visit [facility] Cardiology at [address] [place] [address] Paulo Veloz MD Coronary artery disease involving [place] coronary artery of [place] heart without angina pectoris (Primary Dx); Essential hypertension; Hyperlipidemia LDL goal <70; LBBB (left bundle branch block); Pulmonary hypertension (HCC); History of atrial fibrillation 12/13/2024 Orders Only [facility] Cardiology at [address] [place] [address] Provider, MD Cheryle from Last 3 Months [...] on file Legal Sex Female 2:03 AM HEAD BOYS TENNIS COACH Gender Identity Female 09/29/2020 9:57 AM CDT Sexual Orientation Straight 09/29/2020 9: 57 AM CDT Last Filed Vital Signs Vital Sign Reading Time Taken Comments Blood Pressure 102/58 03/10/2025 2:01 PM HEAD BOYS TENNIS COACH Pulse 102 03/10/2025 2:01 PM HEAD BOYS TENNIS COACH Temperature - - Respiratory Rate 16 12/26/2023 11:3 2 AM CDT Oxygen Saturation 94% 03/10/2025 2:01 PM HEAD BOYS TENNIS COACH Inhaled Oxygen Concentration - - Weight 68.9 kg (151 lb 14.4 oz) 03/10/2025 2:01 PM HEAD BOYS TENNIS COACH Height 170.2 cm (5' 7) 03/10/2025 2:01 PM HEAD BOYS TENNIS COACH Body Mass Index 23.79 03/10/2025 2:01 PM HEAD BOYS TENNIS COACH Plan of Treatment Health Maintenance Due Date Last Done Comments Depression Screening 1945 Fall Risk Assessment 1945 Osteoporosis Screening-Bone Density Scan 1945 DTaP/Tdap/Td Vaccine (1 - Tdap) 11/05/1955 Hepatitis B Screening 1962 Zoster Vaccine (2 of 3) 01/02/2009 11/07/2008, 11/06 Well Visit 65+ 2009 Pneumococcal vaccine 65+ (2 of 2 - PCV) 03/30/2018 03/30/2017, 11/06/2009, 11/05/2009 Influenza Vaccine (#1) 2025 , 01/25/2019, 01/06/2017, Additional history exists Procedures Procedure Name Priority Date/Time Associated Diagnosis Comments ECG 12-LEAD Routine 03/10/2025 2:20 PM HEAD BOYS TENNIS COACH History of atrial fibrillation [facility] - MOBILE CARDIAC TELEMETRY EVENT MONITOR Routine 12/13/2024 12:59 PM CDT History of atrial fibrillation from Last 3 Months Results * ECG 12 lead (03/10/2025 2:20 PM HEAD BOYS TENNIS COACH) us Paulo Veloz MD ECG ORDERABLES Edited Re sult - Final * [facility] Mobile Cardiac Telemetry Event Monitor (12/13/2024 12:59 PM CDT) Anatomical Region Laterality Modality Electrocardiogra phy Narrative 12/30/2024 5:37 PM CDT AMBULATORY RADAR SYSTEMS ENGINEER REPORT Patient Name: Allyson Tello Date of [...] was used to complete this document, therefore, fabric designer variances may occur. Paulo Veloz MD, [facility] 12/30/24 Procedure Note Paulo Veloz MD - 12/30/2024 AMBULATORY RADAR SYSTEMS ENGINEER REPORT Patient Name: Allyson Tello Date of [...] software was used to complete this document, therefore,fabric designer variances may occur. Paulo Veloz MD, [facility] 12/30/24 us Paulo Velzo MD CV CARDIAC SERVICES [facility] Final Result from Last 3 Months Insurance [employer] [facility] Address: [address] [address] [place] [address] [employer] MEDICARE ADVANTAGE Care Teams Metal Welder Relationship Specialty Start Date End Date Felix Powell MD PCP - General 05/24/13
--- OUTSIDE RECORDS SUMMARY | 2025-03-10 20:54 | XMS_ITS | Clinical Summary ---
Author Organization [facility] Address [facility] [place] [address] Care Team Providers Care Echocardiography Technologist Name Role Phone Felix Powell MD Primary Care Provider [phone] Allergies Active Allergy Reactions Criticality Noted Date [...] Blood Gluc Sensor (FREESTYLE ASHA 2 SENSOR) [facility] [place] instructions. 3 Active BANOPHEN 50 MG Cap capsule 2 Active glimepiride (AMARYL) 2 MG tablet Take 1 tablet (2 mg total) by mouth daily with breakfast. 2 Active folic acid (FOLVITE) 1 MG tablet Take 1 tablet (1 mg total) by mouth daily. Active Active Problems Problem Noted Date Diagnosed Date Sacroiliitis 04/19/2022 Overview (04/19/2022): Added automatically from request for surgery [id number] Social History Tobacco Use Types Packs/Day Years [...] patient's age to complete this topic Insurance [facility] BLUE CROSS BLUE SHIELD MEDICARE Care Teams Echocardiography Technologist Relationship Specialty Start Date End Date Felix Powell MD [address] [place] [id number] PCP - General INTERNAL MEDICINE 03/15/22
== END 2025-03-10 15:23 | disposition home or self-care (01) ==
PROVIDERS: PCP Internal Medicine; Visit Provider Internal Medicine
DX: R92.8 Other abnormal and inconclusive findings on diagnostic imaging of breast (principal); R53.83 Other fatigue; R53.1 Weakness
CPT/HCPCS: 36415; 80048; 85025

== ENCOUNTER 2025-04-21 15:41 | Outpatient (CLI) | payer MEDICARE, SELFPAY ==
--- OUTSIDE RECORDS SUMMARY | 2019-01-17 23:00 | XMS_ITS | Encounter Summary ---
Author Organization [facility] Healthcare Address [address] [place] [address] Care Team Providers Care Travel Attendants Name Role Phone Felix Powell MD Primary Care Provider [phone] Reason for Visit * Diagnostic Imaging (Routine) - Pending Review Specialty Diagnoses / Procedures Referred By Danyell stinson Referred To Contact Procedures Breast Imaging Screening Outside Reference Transcribed Order, Provider Referral ID Status Reason Start Date Expiration Date V isits Requested Visits Authorized [id number] Pending Review 09/06/2024 10/06/2025 1 1 Encounter Details Date Type Department Care Team (Late st Contact Info) Description 01/18/2019 Hospital Encounter [facility] [address], [place] [id number] Social History Tobacco Use Types Packs/Day Years Used Date Smoking Tobacco: Former Smokeless Tobacco: Never Alcohol Use Standard Drinks/Week Comments No 0 (1 standard drink = 0.6 oz pur e alcohol) Comments No Sex and Gender Information Value Date Recorded Sex Assigned at Not on file Legal Sex Female 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 Gender Identity Female 09/29/2020 9:57 AM CDT Sexual Orientation Straight 09/29/2020 9: 57 AM CDT documented as of this encounter Plan of Treatment Not on file documented as of this encounter Procedures Procedure Name Priority Date/Time Associated Diagnosis Comments BREAST IMAGING MG SCREENING OUTSIDE REFERENCE Routine 01/18/2019 12:00 AM CDT documented in this encounter Results * Breast Imaging Screening Outside Reference (01/18/2019 12:00 AM CDT) Impressions [facility]MO[facility] - 09/06/2024 2:42 PM CDT These images are for Reference purposes only and have not been reviewed by [facility] Radiology. There will be no report generated by a [facility] Radiologist. Narrative [facility]_M[facility]MO[facility] - 09/06/2024 2:42 PM CDT EXAMINATION: Images For Reference Purposes Only us Provider Transcribed Order IMG MAMMO PROCEDURES Final Result [facility] documented in this encounter Visit Diagnoses Not on filedocumented in this encounter Care Teams Travel Attendants Relationship Specialty Start Date End Date Felix Powell MD PCP - General 05/24/13 documented as of this encounter
--- OUTSIDE RECORDS SUMMARY | 2019-01-26 23:00 | XMS_ITS | Encounter Summary ---
Author Organization [facility] Healthcare Address [address] [place] [address] Care Team Providers Care Rigging Slinger Name Role Phone Felix Powell MD Primary Care Provider [phone] Reason for Visit * Diagnostic Imaging (Routine) - Pending Review Specialty Diagnoses / Procedures Referred By Danyell stinson Referred To Contact Procedures Breast Imaging Diagnostic Outside Reference Transcribed Order, Provider Referral ID Status Reason Start Date Expiration Date V isits Requested Visits Authorized [id number] Pending Review 09/06/2024 10/06/2025 1 1 Encounter Details Date Type Department Care Team (Late st Contact Info) Description 01/27/2019 Hospital Encounter [facility] Radiology [facility] [address] [place], [place] [id number] Social History Tobacco Use Types Packs/Day Years Used Date Smoking Tobacco: Former Smokeless Tobacco: Never Alcohol Use Standard Drinks/Week Comments No 0 (1 standard drink = 0.6 oz pur e alcohol) Comments No Sex and Gender Information Value Date Recorded Sex Assigned at Not on file Legal 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 There will be no report generated by a [facility] Radiologist. Narrative RAD_M[facility]MO[facility] - 09/06/2024 2:42 PM CDT EXAMINATION: Images For Reference Purposes Only us Provider Transcribed Order IMG MAMMO PROCEDURES Final Result [facility] documented in this encounter Visit Diagnoses Not on filedocumented in this encounter Care Teams Rigging Slinger Relationship Specialty Start Date End Date Felix Powell MD PCP - General 05/24/13 documented as of this encounter
--- OUTSIDE RECORDS SUMMARY | 2019-06-11 | XMS_ITS | Encounter Summary ---
Author Organization [facility] Healthcare Address [address] [place] [address] Care Team Providers Care Thread Drawer Name Role Phone Felix Powell MD Primary Care Provider [phone] Reason for Visit * Diagnostic Imaging (Routine) - Pending Review Specialty Diagnoses / Procedures Referred By Danyell stinson Referred To Contact Procedures Breast Imaging Diagnostic Outside Reference Transcribed Order, Provider Referral ID Status Reason Start Date Expiration Date V isits Requested Visits Authorized [id number] Pending Review 09/06/2024 10/06/2025 1 1 Encounter Details Date Type Department Care Team (Late st Contact Info) Description 06/11/2019 Hospital Encounter [facility] [address] [place], [place] [phone] Social History Tobacco Use Types Packs/Day Years Used Date Smoking Tobacco: Former Smokeless Tobacco: Never Alcohol Use Standard Drinks/Week Comments No 0 (1 standard drink = 0.6 oz pur e alcohol) Comments No Sex and Gender Information Value Date Recorded Sex Assigned at Not on file Legal Sex Female 2:03 AM BANJO REPAIRER Gender Identity Female 09/29/2020 9:57 AM CDT Sexual Orientation Straight 09/29/2020 9: 57 AM CDT documented as of this encounter Plan of Treatment Not on file documented as of this encounter Procedures Procedure Name Priority Date/Time Associated Diagnosis Comments BREAST IMAGING MG DIAGNOSTIC OUTSIDE REFERENCE Routine 06/11/2019 12:00 AM BANJO REPAIRER documented in this encounter Results * Breast Imaging Diagnostic Outside Reference (06/11/2019 12:00 AM BANJO REPAIRER) Impressions [facility]MO[facility] - 09/06/2024 2:42 PM CDT These images are for Reference purposes only and have not been reviewed by [facility]. There will be no report generated by a [facility] Radiologist. Narrative [facility]_M[facility]MO[facility] - 09/06/2024 2:42 PM CDT EXAMINATION: Images For Reference Purposes Only us Provider Transcribed Order IMG MAMMO PROCEDURES Final Result [facility] documented in this encounter Visit Diagnoses Not on filedocumented in this encounter Care Teams Thread Drawer Relationship Specialty Start Date End Date Felix Powell MD PCP - General 05/24/13 documented as of this encounter
--- OUTSIDE RECORDS SUMMARY | 2019-06-11 00:05 | XMS_ITS | Encounter Summary ---
Author Organization [facility] Healthcare Address [address] [place] [address] Care Team Providers Care Electro Mechanical Solar Technician Name Role Phone Felix Powell MD Primary Care Provider [phone] Reason for Visit * Diagnostic Imaging (Routine) - Pending Review Specialty Diagnoses / Procedures Referred By Danyell stinson Referred To Contact Procedures Breast Imaging US Outside Reference Transcribed Order, Provider Referral ID Status Reason Start Date Expiration Date V isits Requested Visits Authorized [id number] Pending Review 09/06/2024 10/06/2025 1 1 Encounter Details Date Type Department Care Team (Late st Contact Info) Description 06/11/2019 12:05 AM VENEER PRODUCTION MACHINE OPERATOR Hospital Encounter [facility] ([facility]) [address] [place] [phone] Social History Tobacco Use Types Packs/Day Years Used Date Smoking Tobacco: Former Smokeless Tobacco: Never Alcohol Use Standard Drinks/Week Comments No 0 (1 standard drink = 0.6 oz pur e alcohol) Comments No Sex and Gender Information Value Date Recorded Sex Assigned at Not on file Legal Sex Female 2:03 AM VENEER PRODUCTION MACHINE OPERATOR Gender Identity Female 09/29/2020 9:57 AM CDT Sexual Orientation Straight 09/29/2020 9: 57 AM CDT documented as of this encounter Plan of Treatment Not on file documented as of this encounter Procedures Procedure Name Priority Date/Time Associated Diagnosis Comments BREAST IMAGING US OUTSIDE REFERENCE Routine 06/11/2019 12:05 AM VENEER PRODUCTION MACHINE OPERATOR documented in this encounter Results * Breast Imaging US Outside Reference (06/11/2019 12:05 AM VENEER PRODUCTION MACHINE OPERATOR) Impressions [facility] - 09/06/2024 2:42 PM CDT These images are for Reference purposes only and have not been reviewed by [facility]. There will be no report generated by a [facility] Radiologist. Narrative RAD_[facility] - 09/06/2024 2:42 PM CDT EXAMINATION: Images For Reference Purposes Only us Provider Transcribed Order IMG MAMMO PROCEDURES Final Result [facility] documented in this encounter Visit Diagnoses Not on filedocumented in this encounter Care Teams Electro Mechanical Solar Technician Relationship Specialty Start Date End Date Felix Powell MD PCP - General 05/24/13 documented as of this encounter
--- OUTSIDE RECORDS SUMMARY | 2020-02-28 23:00 | XMS_ITS | Encounter Summary ---
Author Organization [facility] Healthcare Address [address] [place] [address] Care Team Providers Care Food And Beverage Assistant Manager Name Role Phone Felix Powell MD Primary Care Provider [phone] Reason for Visit * Diagnostic Imaging (Routine) - Pending Review Specialty Diagnoses / Procedures Referred By Danyell stinson Referred To Contact Procedures Breast Imaging Diagnostic Outside Reference Transcribed Order, Provider Referral ID Status Reason Start Date Expiration Date V isits Requested Visits Authorized [id number] Pending Review 09/06/2024 10/06/2025 1 1 Encounter Details Date Type Department Care Team (Late st Contact Info) Description 02/29/2020 Hospital Encounter [facility] [address] [place], [place] [id number] Social History Tobacco Use Types Packs/Day Years Used Date Smoking Tobacco: Former Smokeless Tobacco: Never Alcohol Use Standard Drinks/Week Comments No 0 (1 standard drink = 0.6 oz pur e alcohol) Comments No Sex and Gender Information Value Date Recorded Sex Assigned at Not on file Legal Sex 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 Gender Identity Female 09/29/2020 9:57 AM CDT Sexual Orientation Straight 09/29/2020 9: 57 AM CDT documented as of this encounter Plan of Treatment Not on file documented as of this encounter Procedures Procedure Name Priority Date/Time Associated Diagnosis Comments BREAST IMAGING MG DIAGNOSTIC OUTSIDE REFERENCE Routine 02/29/2020 12:00 AM CDT documented in this encounter Results * Breast Imaging Diagnostic Outside Reference (02/29/2020 12:00 AM CDT) Impressions [facility] - 09/06/2024 2:42 PM CDT These images are for Reference purposes only and have not been reviewed by [facility] Radiology. There will be no report generated by a [facility] Radiologist. Narrative [facility] - 09/06/2024 2:42 PM CDT EXAMINATION: Images For Reference Purposes Only us Provider Transcribed Order IMG MAMMO PROCEDURES Final Result [facility] documented in this encounter Visit Diagnoses Not on filedocumented in this encounter Care Teams Food And Beverage Assistant Manager Relationship Specialty Start Date End Date Felix Powell MD PCP - General 05/24/13 documented as of this encounter
--- OUTSIDE RECORDS SUMMARY | 2020-02-29 23:00 | XMS_ITS | Encounter Summary ---
Author Organization [facility] Healthcare Address [address] [place] [address] Care Team Providers Care Precision Grinder External Name Role Phone Felix Powell MD Primary Care Provider [phone] Reason for Visit * Diagnostic Imaging (Routine) - Pending Review Specialty Diagnoses / Procedures Referred By Danyell stinson Referred To Contact Procedures Breast Imaging US Outside Reference Transcribed Order, Provider Referral ID Status Reason Start Date Expiration Date V isits Requested Visits Authorized [id number] Pending Review 09/06/2024 10/06/2025 1 1 Encounter Details Date Type Department Care Team (Late st Contact Info) Description 03/01/2020 Hospital Encounter [facility] Radiology [facility] [address] [place], [place] [phone] Social History Tobacco Use Types Packs/Day Years Used Date Smoking Tobacco: Former Smokeless Tobacco: Never Alcohol Use Standard Drinks/Week Comments No 0 (1 standard drink = 0.6 oz pur e alcohol) Comments No Sex and Gender Information Value Date Recorded Sex Assigned at Not on file Legal Sex Female 2:03 AM BURR GRINDER Gender Identity Female 09/29/2020 9:57 AM CDT [...] only and have not been reviewed by [facility] Radiology. There will be no report generated by a [facility] Radiologist. Narrative [facility] - 09/06/2024 2:42 PM CDT EXAMINATION: Images For Reference Purposes Only us Provider Transcribed Order IMG MAMMO PROCEDURES Final Result [facility] documented in this encounter Visit Diagnoses Not on filedocumented in this encounter Care Teams Precision Grinder External Relationship Specialty Start Date End Date Felix Powell MD PCP - General 05/24/13 documented as of this encounter
[2025-04-21 16:06] LABS: Hematocrit 37.1 % (37.0-47.0); Hemoglobin 12.1 g/dL (12.0-15.0); Mean Corpuscular HGB Conc 32.6 g/dl (32-36); Mean Corpuscular Hemoglobin 29.1 pg (26-34); Mean Corpuscular Volume 89.2 fl (80-100); Platelet Count Result 172 k/mm3 (150-375); Red Blood Count 4.16 M/mm3 (4.2-5.4); White Blood Count 6.0 K/mm3 (4.5-10.0)
--- OUTSIDE RECORDS SUMMARY | 2025-04-21 16:09 | XMS_ITS | Clinical Summary ---
Author Organization [facility] [address] Address [address] [place] [address] Care Team Providers Care Lens Edge Grinder Machine Name Role Phone Felix Powell MD Primary Care Provider [phone] Allergies Active Allergy Reactions Criticality Noted Date [...] 1 tablet (137 mcg total) by mouth nurse sane before breakfast Active buPROPion XL (WELLBUTRIN XL) [...] mg SL tabletIndication s:Coronary artery disease involving [place] coronary artery of [place] heart without angina pectoris Place 1 tablet [...] extended release tabletIndication s:Coronary artery disease involving [place] coronary artery of [place] heart without angina pectoris,Essenti al hypertension Take 1 tablet (25 mg total) by mouth daily 90 tablet 3 5 025 Discontinu ed(No longer taking - Do not display on AVS) Active Problems Problem Noted Date Diagnosed Date History of atrial fibrillation 12/13/2024 Pulmonary hypertension 09/03/2024 Chronic obstructive pulmonary disease 02/23/2021 LBBB (left bundle branch block) 02/23/2021 PMR (polymyalgia rheumatica) 02/23/2021 Hyperlipidemia LDL goal <70 02/23/2021 Essential hypertension 02/23/2021 Former smoker 02/23/2021 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[place]ving [place] coronary artery of [place] heart without angina pectoris 06/19/2017 History of coronary artery stent placement 06/19 Encounters Date Type Department Care Team Description 03/23/2025 Telephone [facility] [address] [place] [id number] Paulo Veloz MD Dizziness; Medication Reaction 03/17/2025 1:05 PM MEAT GRADING MACHINE OPERATOR - 03/17/2025 11:59 PM MEAT GRADING MACHINE OPERATOR Hospital Encounter [facility] Breast [facility] ([facility]) [address] [place] [phone] Mammographic microcalcification found on diagnostic imaging of breast; Other abnormal and inconclusive findings on diagnostic imaging of breast Discharge Disposition: Discharge to home or self care 03/10/2025 2:15 PM MEAT GRADING MACHINE OPERATOR Office Visit [facility] Cardiology at [address] [place] [id number] Paulo Veloz MD Coronary artery disease involving [place] coronary artery of [place] heart without angina pectoris (Primary Dx); Essential hypertension; History of atrial fibrillation; Hyperlipidemia LDL goal <70; LBBB (left bundle branch block); Pulmonary hypertension (HCC) from Last 3 Months Surgical History Surgery Date Site/Laterality Comments BREAST BIOPSY Bilateral age 16 HYSTERECTOMY BREAST BIOPSY 05/05/2022 - 05/04/2023 Left Benign Medical History Medical History Date Comments Hypertension Hypertension Hx Other Medical Diabetes Type I I Hx Other Medical dyslipidemia Adiposity Obesity Thyroid cancer (HCC) Family History Medical History Relation Name Comments Breast cancer Daughter Heart attack Father Myocardial Infa rction; Prostate cancer Father Breast cancer Maternal cousin Ovarian cancer Mother Pancreatic cancer Neg Hx Relation Name Status Comments Daughter Father Alive Maternal cousin Mother Social History Tobacco Use Types Packs/Day Years Used Date Smoking Tobacco: Former Smokeless Tobacco: Never Tobacco Cessation:Counseling Given: Not Answered Alcohol Use Standard Drinks/Week Comments No 0 (1 standard drink = 0.6 oz pur e alcohol) Comments No Sex and Gender Information Value Date Recorded Sex Assigned at Not on file Legal Sex Female 2:03 AM MEAT GRADING MACHINE OPERATOR Gender Identity Female 09/29/2020 9:57 AM CDT Sexual Orientation Straight 09/29/2020 9: 57 AM CDT Obstetrics History Para Term AB IAB SAB Ectopic Multiple Livin g Live Births 4 3 Date Outcome GA Total Labor Labor/2nd/3rd Weight Sex Type Anes PTL Viv A1 A5 Name Clin Last Filed Vital Signs Vital Sign Reading Time Taken Comments Blood Pressure 102/58 03/10/2025 2:01 PM MEAT GRADING MACHINE OPERATOR Pulse 102 03/10/2025 2:01 PM MEAT GRADING MACHINE OPERATOR Temperature - - Respiratory Rate 16 12/26/2023 11:32 AM CDT Oxygen Saturation 94% 03/10/2025 2:01 PM MEAT GRADING MACHINE OPERATOR Inhaled Oxygen Concentration - - Weight 68.5 kg (151 lb) 03/17/2025 1:20 PM MEAT GRADING MACHINE OPERATOR Height 170.2 cm (5' 7) 03/17/2025 1:20 PM MEAT GRADING MACHINE OPERATOR Body Mass Index 23.65 03/17/2025 1:20 PM MEAT GRADING MACHINE OPERATOR Plan of Treatment Health Maintenance Due Date [...] Procedure Name Priority Date/Time Associated Diagnosis Comments DIAGNOSTIC MAMMOGRAM RIGHT W JOSE Schedule Routine, Read Routine (OP Routine) 03/17/2025 2:22 PM MEAT GRADING MACHINE OPERATOR Mammographic microcalcification found on diagnostic imaging of breast Other abnormal and inconclusive findings on diagnostic imaging of breast ECG 12-LEAD Routine 03/10/2025 2:20 PM MEAT GRADING MACHINE OPERATOR History of atrial fibrillation from Last 3 Months Results * Diagnostic Mammogram Right W Jose (03/17/2025 2:22 PM MEAT GRADING MACHINE OPERATOR) Anatomical Region Laterality Modality Breast Right Mammography 03/17/2025 2:40 PM MEAT GRADING MACHINE OPERATOR Impressions 03/17/2025 3:29 PM MEAT GRADING MACHINE OPERATOR Probably benign diffuse right breast microcalcifications with layering demonstrated on the true lateral projections without significant interval change compared to multiple prior examinations. Short interval diagnostic imaging of the right breast recommended in 6 months or at the time of patient's annual mammogram. OVERALL FINAL ASSESSMENT: BI-RADS Category 3: Probably Benign. RECOMMENDATION: Recommend follow-up diagnostic breast imaging at the time of patient's annual screening mammogram due in August or in 6 months. Dictated by: Cindy De Guzman M.D. The radiology attending physician has personally reviewed this study, and had reviewed and/or edited this written report and agrees with it. Electronically signed by: Celia Herrera M.D. Narrative 03/17/2025 3:29 PM MEAT GRADING MACHINE OPERATOR EXAMINATION: RIGHT UNILATERAL DIGITAL DIAGNOSTIC MAMMOGRAM AND DIGITAL BREAST TOMOSYNTHESIS HISTORY: 79-year-old woman with a history of benign left breast stereotactic guided biopsy yielding fibrocystic change and right breast at the time ultrasound biopsy yielding fatty tissue. COMPARISON: Mammogram 09/13/2024 and multiple priors dating back to 2019. TECHNIQUE: Full field digital mammographic views of the RIGHT breast were performed, including computer aided detection (CAD) and digital breast tomosynthesis (DBT). BREAST PARENCHYMAL COMPOSITION: The breasts are heterogeneously dense, which may obscure small masses. MAMMOGRAM FINDINGS: Redemonstrated diffuse right breast amorphous calcifications with layering on the true lateral and magnification views in the right breast without significant interval change compared to multiple prior examinations. Scattered vascular calcifications. us Ladonna Louise MD IMG MAMMO PROCEDURES Final R esult * ECG 12 lead (03/10/2025 2:20 PM MEAT GRADING MACHINE OPERATOR) us Paulo Veloz MD ECG ORDERABLES Edited Re sult - Final from Last 3 Months Insurance [facility] MEDICARE ADVANTAGE [facility] MEDICARE ADVANTAGE Care Teams Lens Edge Grinder Machine Relationship Specialty Start Date End Date Felix Powell MD PCP - General 05/24/13
[2025-04-21 16:23] LABS: Alanine Aminotransferase 27 U/L (6-35); Albumin Level 4.3 g/dL (3.5-5.1); Alkaline Phosphatase 72 U/L (38-126); Anion Gap 7 mmol/L (4-12); Aspartate Amino Transferase 29 U/L (14-36); Bilirubin,Total 1.2 mg/dL (0.2-1.3); Blood Urea Nitrogen 32 mg/dL (7-17); Calcium 10.3 mg/dL (8.4-10.2); Carbon Dioxide 24 mmol/L (22-30); Chloride 105 mmol/L (98-107); Estimated Glomerular Filt Rate 27; Glucose 129 mg/dL (65-110); Potassium 3.6 mmol/L (3.4-5.0); Sodium 136 mmol/L (137-145); Total Protein 7.9 g/dL (6.3-8.2)
[2025-04-21 16:36] LABS: Total Protein Urine Random 29 mg/dL; Ur Ttl Prot Creatinine Ratio 0.32 mg/mg (0-0.20)
[2025-04-21 16:58] LABS: Thyroid Stimulating Hormone < 0.015 uIU/mL (0.465-4.680)
[2025-04-21 17:26] LABS: Free T4 Free Thyroxine 1.64 ng/dL (0.78-2.19)
[2025-04-21 17:42] LABS: Parathyroid Intact < 14.5 pg/mL (14.5-75.2)
== END 2025-04-21 15:42 | disposition home or self-care (01) ==
PROVIDERS: PCP Internal Medicine; Referring Provider Internal Medicine Nephrology; Visit Provider Internal Medicine
DX: N17.9 Acute kidney failure, unspecified (principal); E11.9 Type 2 diabetes mellitus without complications; E03.9 Hypothyroidism, unspecified; E78.2 Mixed hyperlipidemia; I10 Essential (primary) hypertension
CPT/HCPCS: 36415; 80053; 82570; 83970; 84156; 84439; 84443; 85027